=== PATIENT | male | born 1940 | race Caucasian/White ===

== ENCOUNTER → 2018-02-01 08:33 | Outpatient (CLI) | payer MEDICARE, SELFPAY ==
[2018-02-01 09:36] LABS: Add Manual Diff / Slide Review NO; Basophils Percent Auto 0.8 % (0-2); Eosinophils Percent Auto 0.6 % (2-4); Hemoglobin 11.4 g/dL (13.5-17.5); Lymphocytes Percent Auto 30.1 % (25-40); Mean Corpuscular HGB Conc 34.7 % (30-36); Mean Corpuscular Hemoglobin 35.3 PG (26-34); Mean Corpuscular Volume 101.6 fL (80-100); Monocytes Percent Auto 9.9 % (3-14); Neutrophils Absolute Auto 3800 /uL (3000-5900); Neutrophils Percent Auto 58.6 % (50-75); Platelet Count 165 X10^3/uL (150-400); Red Blood Cell Count 3.24 X10^6/uL (4.5-5.9); Red Cell Distribution Width 13.6 % (11.6-14.8); White Blood Cell Count 6.5 X10^3/uL (4.5-11.0)
[2018-02-01 09:42] LABS: Hemoglobin A1C% w Est Avg Glu 7.1 % (4.0-6.0)
[2018-02-01 10:07] LABS: Alanine Aminotransferase 35 IU/L (21-72); Albumin 3.6 g/dL (3.5-5.0); Albumin Globulin Ratio 1.4 (1.0-2.8); Alkaline Phosphatase 79 U/L (38-126); Aspartate Aminotransferase 33 IU/L (17-59); BUN Creatinine Ratio 25.3 (6-22); Bilirubin Total 0.6 mg/dL (0.2-1.3); Blood Urea Nitrogen 38 mg/dL (9-20); Calcium 9.2 mg/dL (8.4-10.2); Carbon Dioxide 27 mmol/L (22-32); Chloride 104 mmol/L (98-107); Estimated Glomerular Filt Rate 45.1 mL/min (>60); Globulin 2.6 g/dL (1.7-4.1); Glucose 103 mg/dL (80-110); HEMOLYSIS < 15 (0-50); Potassium 4.7 mmol/L (3.4-5.1); Sodium 141 mmol/L (137-145); Total Protein 6.2 g/dL (6.3-8.2)
[2018-02-01 10:11] LABS: Free T3, Triiodothyronine Free 3.03 pg/mL (2.77-5.27)
[2018-02-01 10:25] LABS: Thyroid Stimulating Hormone 1.73 uIU/mL (0.47-4.68)
== END ==
PROVIDERS: PCP Internal Medicine; Visit Provider Internal Medicine
DX: E11.9 Type 2 diabetes mellitus without complications (principal); I10 Essential (primary) hypertension; E03.9 Hypothyroidism, unspecified; Z94.2 Lung transplant status
CPT/HCPCS: 36415; 80053; 83036; 84439; 84443; 84481; 85025

== ENCOUNTER → 2018-02-19 08:04 | Outpatient (CLI) | payer MEDICARE, SELFPAY ==
[2018-02-19 10:02] LABS: HEMOLYSIS < 15 (0-50); Iron 110 ug/dL (49-181)
[2018-02-19 10:13] LABS: Percent Iron Saturation 34 % (20-50); Total Iron Binding Capacity 319 ug/dL (261-462); Transferrin 249 mg/dL (206-381)
== END ==
PROVIDERS: PCP Internal Medicine; Visit Provider Internal Medicine
DX: D64.9 Anemia, unspecified (principal)
CPT/HCPCS: 36415; 82728; 83540; 83550

== ENCOUNTER → 2018-03-14 09:50 | Outpatient (CLI) | payer MEDICARE, SELFPAY | PROVIDERS: PCP Internal Medicine; Visit Provider Surgery | DX: D64.9 Anemia, unspecified (principal); D12.9 Benign neoplasm of anus and anal canal | CPT/HCPCS: 93005 ==

== ENCOUNTER → 2018-04-10 09:33 | Outpatient (CLI) | payer MEDICARE, SELFPAY ==
[2018-04-10 11:11] LABS: Albumin 3.5 g/dL (3.5-5.0)
[2018-04-10 11:43] LABS: Testosterone 57.5 ng/dL (71.8-623)
[2018-04-10 12:13] LABS: Folate > 20.0 ng/mL (2.76-20.0); Vitamin B12 922 pg/mL (239-931)
[2018-04-12 14:15] LABS: Sex Hormone Binding Globulin 54 nmol/L (22-77)
[2018-04-13 11:09] LABS: Testosterone Free 7.4 pg/mL (30.0-135.0); Testosterone Total 94 ng/dL (250-1100)
== END ==
PROVIDERS: PCP Internal Medicine; Visit Provider Acupuncturist
DX: R53.83 Other fatigue (principal); D64.9 Anemia, unspecified; R35.0 Frequency of micturition
CPT/HCPCS: 36415; 82040; 82607; 82728; 82746; 84153; 84270; 84402; 84403

== ENCOUNTER → 2018-05-21 13:02 | Outpatient (CLI) | payer MEDICARE, SELFPAY ==
[2018-05-21 13:49] LABS: Hemoglobin A1C% w Est Avg Glu 6.4 % (4.0-6.0)
[2018-05-21 14:30] LABS: Blood Urea Nitrogen 44 mg/dL (9-20); Calcium 9.7 mg/dL (8.4-10.2); Carbon Dioxide 31 mmol/L (22-32); Chloride 103 mmol/L (98-107); Estimated Glomerular Filt Rate 30.6 mL/min (>60); Glucose 150 mg/dL (80-110); HEMOLYSIS < 15 (0-50); Potassium 5.1 mmol/L (3.4-5.1); Sodium 141 mmol/L (137-145)
[2018-05-23 17:47] LABS: Testosterone, Free 0.19 ng/dL
== END ==
PROVIDERS: PCP Internal Medicine; Visit Provider Acupuncturist
DX: E10.9 Type 1 diabetes mellitus without complications (principal)
CPT/HCPCS: 36415; 80048; 83036; 84402; 84403

== ENCOUNTER → 2018-06-10 08:42 | Outpatient (CLI) | payer MEDICARE, SELFPAY ==
[2018-06-10 09:31] LABS: BUN Creatinine Ratio 25.6 (6-22); Blood Urea Nitrogen 41 mg/dL (9-20); Calcium 8.5 mg/dL (8.4-10.2); Carbon Dioxide 29 mmol/L (22-32); Chloride 105 mmol/L (98-107); Estimated Glomerular Filt Rate 41.9 mL/min (>60); Glucose 102 mg/dL (80-110); HEMOLYSIS < 15 (0-50); Potassium 4.7 mmol/L (3.4-5.1); Sodium 140 mmol/L (137-145)
[2018-06-10 10:04] LABS: Thyroid Stimulating Hormone 0.58 uIU/mL (0.47-4.68)
== END ==
PROVIDERS: Family Provider Internal Medicine; PCP Internal Medicine; Visit Provider Acupuncturist
DX: N18.9 Chronic kidney disease, unspecified (principal); I10 Essential (primary) hypertension
CPT/HCPCS: 36415; 80048; 84443

== ENCOUNTER → 2019-01-17 07:37 | Outpatient (CLI) | payer MEDICARE, SELFPAY ==
[2019-01-17 08:23] LABS: Add Manual Diff / Slide Review NO; Basophils Absolute Auto 0 /uL (0-100); Basophils Percent Auto 0.8 % (0-2); Eosinophils Absolute Auto 0 /uL (0-450); Eosinophils Percent Auto 0.6 % (2-4); Hematocrit 32.5 % (41-53); Hemoglobin 11.1 g/dL (13.5-17.5); Lymphocytes Absolute Auto 1900 /uL (1100-4500); Lymphocytes Percent Auto 32.5 % (25-40); Mean Corpuscular HGB Conc 34.1 % (30-36); Mean Corpuscular Hemoglobin 34.7 PG (26-34); Mean Corpuscular Volume 101.8 fL (80-100); Monocytes Absolute Auto 600 /uL (0-900); Monocytes Percent Auto 10.6 % (3-14); Neutrophils Absolute Auto 3200 /uL (1500-7000); Neutrophils Percent Auto 55.5 % (50-75); Platelet Count 172 X10^3/uL (150-400); Red Cell Distribution Width 13.4 % (11.6-14.8); White Blood Cell Count 5.8 X10^3/uL (4.5-11.0)
[2019-01-17 09:35] LABS: Alanine Aminotransferase 28 IU/L (21-72); Albumin 3.4 g/dL (3.5-5.0); Albumin Globulin Ratio 1.4 (1.0-2.8); Alkaline Phosphatase 90 U/L (38-126); Aspartate Aminotransferase 30 IU/L (17-59); BUN Creatinine Ratio 25.6 (6-22); Bilirubin Total 0.5 mg/dL (0.2-1.3); Blood Urea Nitrogen 41 mg/dL (9-20); Carbon Dioxide 27 mmol/L (22-32); Chloride 104 mmol/L (98-107); Estimated Glomerular Filt Rate 41.8 mL/min (>60); Globulin 2.4 g/dL (1.7-4.1); Glucose 116 mg/dL (80-110); HEMOLYSIS < 15 (0-50); Phosphorous 3.3 mg/dL (2.3-3.7); Potassium 4.6 mmol/L (3.4-5.1); Sodium 138 mmol/L (137-145); Total Protein 5.8 g/dL (6.3-8.2)
[2019-01-20 17:24] LABS: Tacrolimus 5.9 mcg/L (5.0-20.0)
== END ==
PROVIDERS: PCP Internal Medicine; Visit Provider Internal Medicine Critical Care Medicine
DX: Z94.2 Lung transplant status (principal)
CPT/HCPCS: 36415; 80053; 80197; 83735; 84100; 85025; 87497

== ENCOUNTER → 2019-02-05 09:18 | Outpatient (CLI) | payer MEDICARE, SELFPAY ==
[2019-02-05 10:28] LABS: Add Manual Diff / Slide Review NO; Basophils Absolute Auto 100 /uL (0-100); Basophils Percent Auto 0.8 % (0-2); Eosinophils Absolute Auto 0 /uL (0-450); Eosinophils Percent Auto 0.5 % (2-4); Hematocrit 34.9 % (41-53); Hemoglobin 11.8 g/dL (13.5-17.5); Lymphocytes Absolute Auto 1900 /uL (1100-4500); Lymphocytes Percent Auto 29.8 % (25-40); Mean Corpuscular HGB Conc 33.9 % (30-36); Mean Corpuscular Hemoglobin 34.7 PG (26-34); Mean Corpuscular Volume 102.3 fL (80-100); Monocytes Absolute Auto 600 /uL (0-900); Monocytes Percent Auto 9.3 % (3-14); Neutrophils Absolute Auto 3700 /uL (1500-7000); Neutrophils Percent Auto 59.6 % (50-75); Platelet Count 181 X10^3/uL (150-400); Red Blood Cell Count 3.41 X10^6/uL (4.5-5.9); Red Cell Distribution Width 13.3 % (11.6-14.8); White Blood Cell Count 6.2 X10^3/uL (4.5-11.0)
[2019-02-05 10:45] LABS: Alanine Aminotransferase 28 IU/L (21-72); Albumin 3.9 g/dL (3.5-5.0); Albumin Globulin Ratio 1.4 (1.0-2.8); Alkaline Phosphatase 81 U/L (38-126); Aspartate Aminotransferase 32 IU/L (17-59); BUN Creatinine Ratio 23.9 (6-22); Bilirubin Total 0.6 mg/dL (0.2-1.3); Blood Urea Nitrogen 43 mg/dL (9-20); Calcium 9.7 mg/dL (8.4-10.2); Carbon Dioxide 28 mmol/L (22-32); Chloride 103 mmol/L (98-107); Estimated Glomerular Filt Rate 36.5 mL/min (>60); Globulin 2.7 g/dL (1.7-4.1); Glucose 116 mg/dL (80-110); HEMOLYSIS < 15 (0-50); Phosphorous 4.1 mg/dL (2.3-3.7); Potassium 4.4 mmol/L (3.4-5.1); Sodium 138 mmol/L (137-145); Total Protein 6.6 g/dL (6.3-8.2)
[2019-02-05 10:49] LABS: High Sensitivity CRP - Cardiac 3.9 mg/L (1.0-3.0)
[2019-02-05 11:00] LABS: Vitamin D 25 Hydroxy (D3) 76.7 ng/mL (30.0-100.0)
[2019-02-05 11:01] LABS: Free T3, Triiodothyronine Free 2.35 pg/mL (2.77-5.27); Free T4, Direct Thyroxine 1.68 ng/dL (0.78-2.19)
[2019-02-05 11:14] LABS: Thyroid Stimulating Hormone 2.54 uIU/mL (0.47-4.68)
[2019-02-05 11:49] LABS: Folate 13.6 ng/mL (2.76-20.0); Vitamin B12 559 pg/mL (239-931)
[2019-02-07 04:07] LABS: CMV DNA, Quant PCR LOG 10 <2.30 Log IU/mL; CMV DNA, Quant Real Time PCR <200 IU/mL; Source Blood
[2019-02-07 09:02] LABS: Tacrolimus 3.9 mcg/L (5.0-20.0)
== END ==
PROVIDERS: Family Provider Internal Medicine Critical Care Medicine; PCP Internal Medicine; Visit Provider Acupuncturist
DX: D64.9 Anemia, unspecified (principal); R73.01 Impaired fasting glucose; Z94.2 Lung transplant status
CPT/HCPCS: 36415; 80053; 80197; 82306; 82607; 82746; 83735; 84100; 84439; 84443; 84481; 85025; 86140; 87497

== ENCOUNTER → 2019-02-07 11:28 | Outpatient (CLI) | payer MEDICARE, SELFPAY ==
[2019-02-07 15:11] LABS: Collection Time Urine 24 Hours; Protein (Total) Urine Random 10 mg/dL (0-12); Total Protein 24 Hour Urine 150 mg/day (42-225); Total Volume Urine 1500 mL
== END ==
PROVIDERS: PCP Internal Medicine; Visit Provider Acupuncturist
DX: Z94.2 Lung transplant status (principal)
CPT/HCPCS: 84156

== ENCOUNTER → 2019-03-10 10:09 | Outpatient (CLI) | payer MEDICARE, SELFPAY ==
[2019-03-10 11:03] LABS: Add Manual Diff / Slide Review NO; Basophils Absolute Auto 0 /uL (0-100); Basophils Percent Auto 0.7 % (0-2); Eosinophils Absolute Auto 0 /uL (0-450); Eosinophils Percent Auto 0.5 % (2-4); Hematocrit 34.7 % (41-53); Hemoglobin 11.7 g/dL (13.5-17.5); Lymphocytes Absolute Auto 2000 /uL (1100-4500); Lymphocytes Percent Auto 30.4 % (25-40); Mean Corpuscular HGB Conc 33.7 % (30-36); Mean Corpuscular Hemoglobin 33.9 PG (26-34); Mean Corpuscular Volume 100.6 fL (80-100); Monocytes Absolute Auto 600 /uL (0-900); Monocytes Percent Auto 9.6 % (3-14); Neutrophils Absolute Auto 3800 /uL (1500-7000); Neutrophils Percent Auto 58.8 % (50-75); Platelet Count 184 X10^3/uL (150-400); Red Blood Cell Count 3.45 X10^6/uL (4.5-5.9); Red Cell Distribution Width 13.4 % (11.6-14.8); White Blood Cell Count 6.5 X10^3/uL (4.5-11.0)
[2019-03-10 11:29] LABS: Alanine Aminotransferase 26 IU/L (21-72); Albumin 3.6 g/dL (3.5-5.0); Albumin Globulin Ratio 1.4 (1.0-2.8); Alkaline Phosphatase 100 U/L (38-126); Aspartate Aminotransferase 27 IU/L (17-59); Bilirubin Total 0.5 mg/dL (0.2-1.3); Blood Urea Nitrogen 35 mg/dL (9-20); Calcium 9.1 mg/dL (8.4-10.2); Carbon Dioxide 29 mmol/L (22-32); Chloride 105 mmol/L (98-107); Estimated Glomerular Filt Rate 48.8 mL/min (>60); Globulin 2.5 g/dL (1.7-4.1); Glucose 126 mg/dL (80-110); HEMOLYSIS < 15 (0-50); Magnesium 1.9 mg/dL (1.6-2.3); Phosphorous 3.4 mg/dL (2.3-3.7); Potassium 4.4 mmol/L (3.4-5.1); Sodium 141 mmol/L (137-145); Total Protein 6.1 g/dL (6.3-8.2)
[2019-03-14 04:26] LABS: CMV DNA, Quant PCR LOG 10 <2.30 Log IU/mL; CMV DNA, Quant Real Time PCR <200 IU/mL; Source Blood
== END ==
PROVIDERS: Family Provider Internal Medicine; PCP Internal Medicine; Visit Provider Internal Medicine Critical Care Medicine
DX: Z94.2 Lung transplant status (principal)
CPT/HCPCS: 36415; 80053; 80197; 83735; 84100; 85025; 87497

== ENCOUNTER 2019-05-07 07:30 | Outpatient (RCR) | payer MEDICARE, SELFPAY ==
--- NOTE | 2019-01-08 17:31 | PT.OIE ---
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) Past Medical History (Last Reviewed 03/14/18 @ 09:16 by Master Cr MD) Anemia (Chronic) Tubular adenoma of colon (Chronic) Past Surgical History (Last Updated 03/14/18 @ 09:20 by Marisabel Cloud LPN) H/O lung transplant (Resolved) Provider Visit Care Team Role Provider Type Froilan Morgan MD Family Provider Physician Primary Care Provider Specialty: Internal Medicine Address: [address] [place] [address] Email: Attending Provider Specialty: Address: Phone: Fax: Email: Physical Therapy Initial Evaluation PT-OP-A Visit Information Start: 01/08/19 17:01 Freq: Status: Active Protocol: Document 01/08/19 15:15 DCW (Rec: 01/08/19 17:30 DCW [id number]) Out-Patient Physical Therapy Visit Information Visit Information Visit Type Initial Evaluation Visit Start Time 15:15 Visit Stop Time 16:00 Total Visit Minutes 45 Visit Number 1 Number of CONTRACT RUNNER Visits 0 Evaluation Information Evaluation Date 01/08/19 PT-OP-B Current Condition Start: 01/08/19 17:01 Freq: Status: Active Protocol: Document 01/08/19 15:15 DCW (Rec: 01/08/19 17:30 DCW [id number]) Current Condition History of Current Condition Onset Date 8.5 years s/p lung transplant Current Complaints generalized weakness, fatigue, falls History of Current Condition Pt is an 78 year old male with a complicated medical history , most notably he is eight years s/p lung transplant. Pt reports that ever since his transplant, he has been taking anti-rejection drugs, and I think they're finally starting to take a toll. Pt reports that over the last two years, he has felt like he is getting weaker and weaker, and my knees are killing me with anything I do. Pt also notes that both his right hip and right shoulder are causing pain most of the time, and he feels weak from the top of my head down to my toes. Pt reports that prior to his transplant, he was told he would need knee replacements, but is now too afraid to have surgery, due to infection and respiratory risk. Pt notes that earlier today, he was unable to lift a 30 pound box at the grocery store, and when he starts walking, my knee hurts by the second step. Prior Treatments and Tests Hx Lung replacement secondary to interstitial lung disease Treatment Goals Patient/Caregiver Goals I would just like to get my arms and legs a little stronger, to make it easier to get around. Prior Functional Status Baseline Function- ADL's Independent Baseline Function- Mobility Independent Current Functional Impairments (Reported) Functional Limitations- ADL's Pt unable to lift a 30# box at the grocery store. Functional Limitations- Mobility/Gait Pt ambulates with a slow gait, small step length. Pt knee pain increases after second step when he begins to walk. Personal Factors Other Personal Factors That May Effect Hx Lung replacement secondary Therapy/Recovery to interstitial lung disease, HTN, DM II, Hx C-diff, GERD, Hx pneumonia, Hx skin cancer PT-OP-C Subjective Start: 01/08/19 17:01 Freq: Status: Active Protocol: Document 01/08/19 15:15 DCW (Rec: 01/08/19 17:30 [facility] [id number]) OP-PT Subjective Patient Comments Patient Comments I've just been getting worse and worse over the last two years. Both my arms and legs are so weak now. Patient Reported Progress Worse PT-OP-D Balance Start: 01/08/19 17:01 Freq: Status: Active Protocol: Document 01/08/19 15:15 DCW (Rec: 01/08/19 17:30 DCW [id number]) OP-PT Balance Assessment Sitting Balance Static Sitting Balance Ability Normal Dynamic Sitting Balance Ability Normal Standing Balance Static Standing Balance Ability Good Dynamic Standing Balance Ability Fair Balance Tests Salazar Balance Test Salazar Balance Test Score 49/56 Salazar Impairment Rating 1 to 19% Impaired (Score 45-55 ) Single Limb Standing Single Limb- Right 8 seconds Single Limb- Left 6 seconds Salazar Balance Assessment Evaluation Sitting to Standing Ability Independent w/out Hands Unsupported Stance Safely- 2 minutes Sitting Unsupported, Feet on Floor Safely- 2 minutes Standing to Sitting Ability Independent, Uncontrolled Transfer Ability Safely, Hand Use Unsupported Stance- Eyes Closed Safely, 10 seconds Unsupported Stance- Eyes Open Independent, 1 minute Reaching Forward Standing Confidently, 10 inches Pick- Up Object From Floor Independent/Safe Look Behind Shoulder - Standing Shifts Weight Well Turning 360 Degrees Turns , < 4 secs Unsupported Stance, Alternating Feet on (I)- 8 Steps in > 20 secs Stair Unsupported Tandem Stance Achieves Tandem Unilateral Leg Stance Lifts Leg/Holds 5-10 secs Total Score Salazar Total Score (out of 56 points) 49 Sampson Fall Scale Copyright Permission Adrián JM, Adrián RM, Faustino SJ. Development of a scale to identify the fall- prone patient. Can J Aging 1989;8;366-7. Saskia Sampson (2009). Preventing patient falls. (2nd ed). [place]: [place]. PT-OP-E Functional Tests Start: 01/08/19 17:01 Freq: Status: Active Protocol: Document 01/08/19 15:15 DCW (Rec: 01/08/19 17:30 DCW [id number]) Functional Tests Dynamic Gait Index (DGI) Score 15/24 DGI Impairment Rating 20 to <40% Impaired (Score 15- 19) PT-OP-G Mobility & Gait Start: 01/08/19 17:01 Freq: Status: Active Protocol: Document 01/08/19 15:15 DCW (Rec: 01/08/19 17:30 DCW [id number]) OP Mobility Evaluation Transfers Sit to Stand Stand->Sit transfers, pt demonstrates rapid, uncontrolled descent into chair Functional Movements Lifting and Carrying Pt unable to lift 30# box OP Gait Assessment Gait Gait Assistance Required: Independent Distance (Feet) 200 Assistive Devices Assistive Device None Gait Deviations General Gait Pattern Decreased Stride Length Factors Limiting Gait Function Factors Limiting Gait Function Decreased Strength Poor Balance Comments Gait Comments Pt ambulates with a slow pallavi, minimal ability to change speed with instruction. Stair Climbing Evaluation Evaluation Level of Assist On Stairs Independent Devices Stair Climbing Assistive Devices Left Railing Right Railing Technique/Endurance Stair Climbing Direction Ascend and Descend Stair Climbing Technique Step to Step Number of Steps Climbed 3 PT-OP-M Strength Start: 01/08/19 17:01 Freq: Status: Active Protocol: Document 01/08/19 15:15 DCW (Rec: 01/08/19 17:30 DCW [id number]) Shoulder Strength Shoulder Manual Muscle Testing Right Flexion 4- Good- Extension 4+ Good+ Abduction (C5) 4- Good- External Rotation 4- Good- Internal Rotation 4+ Good+ Left Flexion 4 Good Extension 4+ Good+ Abduction (C5) 4 Good External Rotation 4 Good Internal Rotation 4+ Good+ Elbow/Forearm Strength Elbow and Forearm Manual Muscle Testing Right Flexion (C6) 4 Good Extension (C7) 4- Good- Left Flexion (C6) 4 Good Extension (C7) 4- Good- Hip Strength Hip Manual Muscle Testing Right Flexion (L2) 3 Fair Abduction 4 Good Adduction 4- Good- External Rotation 4- Good- Internal Rotation 4- Good- Left Flexion (L2) 3+ Fair+ Abduction 4 Good Adduction 4- Good- External Rotation 4- Good- Internal Rotation 4 Good Knee Strength Knee Manual Muscle Testing Right Flexion (S2) 4- Good- Extension (L3) 4- Good- Left Flexion (S2) 4+ Good+ Extension (L3) 4- Good- PT-OP-T Assessment and Plan Start: 01/08/19 17:01 Freq: Status: Active Protocol: Document 01/08/19 15:15 DCW (Rec: 01/08/19 17:30 DCW [id number]) Physical Therapy Assessment Rehab Potential Rehabilitation Potential Good Evaluation Complexity Number of Personal Factors/Comorbidities 3 or More Number of Body Systems Impaired 4 or More Clinical Presentation at Evaluation Evolving Impairments Impairments Activity Tolerance Balance Functional Activities Functional Mobility Gait ROM Strength Transfers Other Concerns Fall Risk Yes, per DGI: Barriers to Rehabilitation Complicated medical history Goals Four Impairment Global weakness [place] Goal (LTG) UE and LE MMT to grossly 4+/5 LTG Duration 03/10/19 Three Impairment Pt reports increased knee pain when walking Short Term Goal (STG) Pt to tolerate walking for 6 minutes with no reports of increased knee pain STG Duration 02/08/19 Two Impairment Pt at an increased falls risk per 1524 DGI Short Term Goal (STG) Pt to report no falls over a one month period STG Duration 02/08/19 [place] Goal (LTG) Pt to score at least 20/24 on DGI LTG Duration 03/10/19 One Impairment Pt does not have an appropriate home exercise program Short Term Goal (STG) Pt to be independent and compliant with an appropriate HEP STG Duration 02/08/19 Assessment Summary Assessment Pt presents with global upper and lower extremity weakness, increased falls risk during dynamic balance (per DGI score), pain with walking, and decreased activity tolerance. Pt feels his symptoms are related to his anti-rejection medications he has been taking for 8.5 years following his lung transplant . Pt's goal is to improve his arm and leg strength to improve his walking tolerance and stability. Pt should benefit from skilled therapy focusing on balance training, strengthening, transfer training (especially stand-> sit transfers), and improving activity tolerance. Physical Therapy Plan Frequency and Duration Frequency of Treatment 2x/Week Duration of Treatment 3 months Plan of Care Start Date 01/08/19 Plan of Care End Date 04/10/19 Therapeutic Interventions Therapeutic Interventions Aquatic Therapy Balance Training Gait Training Home Exercise Program Manual Therapy Neuromuscular Re-education Patient/Caregiver Education Self-Care/Home Management Soft Tissue Mobilization Therapeutic Activities Therapeutic Exercises Modalities Cold Pack/Ice Massage Electric Stimulation Hot Packs Ultrasound Next Visit Focus/Plan Next Note Type Treatment Note Next Visit Plan Strengthening, dynamic balance training
--- NOTE | 2019-01-08 17:31 | PT.OPPOC ---
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) Provider Visit Care Team Role Provider Type Froilan Morgan MD Family Provider Physician Primary Care Provider Specialty: Internal Medicine Address: [address] [place] [address], [id number] Email: Attending Provider Specialty: Address: Phone: Fax: Email: Plan Of Care PT-OP-T Assessment and Plan Start: 01/08/19 17:01 Freq: Status: Active Protocol: Document 01/08/19 15:15 DCW (Rec: 01/08/19 17:30 DCW [id number]) Physical Therapy Assessment Rehab Potential Rehabilitation Potential Good Evaluation Complexity Number of Personal Factors/Comorbidities 3 or More Number of Body Systems Impaired 4 or More Clinical Presentation at Evaluation Evolving Impairments Impairments Activity Tolerance Balance Functional Activities Functional Mobility Gait ROM Strength Transfers Other Concerns Fall Risk Yes, per DGI: Barriers to Rehabilitation Complicated medical history Goals Four Impairment Global weakness Detention Goal (LTG) UE and LE MMT to grossly 4+/5 LTG Duration 03/10/19 Three Impairment Pt reports increased knee pain when walking Short Term Goal (STG) Pt to tolerate walking for 6 minutes with no reports of increased knee pain STG Duration 02/08/19 Two Impairment Pt at an increased falls risk per 15/24 DGI Short Term Goal (STG) Pt to report no falls over a one month period STG Duration 02/08/19 Detention Goal (LTG) Pt to score at least 20/24 on DGI LTG Duration 03/10/19 One Impairment Pt does not have an appropriate home exercise program Short Term Goal (STG) Pt to be independent and compliant with an appropriate HEP STG Duration 02/08/19 Assessment Summary Assessment Pt presents with global upper and lower extremity weakness, increased falls risk during dynamic balance (per 24 DGI score), pain with walking, and decreased activity tolerance. Pt feels his symptoms are related to his anti-rejection medications he has been taking for 8.5 years following his lung transplant . Pt's goal is to improve his arm and leg strength to improve his walking tolerance and stability. Pt should benefit from skilled therapy focusing on balance training, strengthening, transfer training (especially stand-> sit transfers), and improving activity tolerance. Physical Therapy Plan Frequency and Duration Frequency of Treatment 2x/Week Duration of Treatment 3 months Plan of Care Start Date 01/08/19 Plan of Care End Date 04/10/19 Therapeutic Interventions Therapeutic Interventions Aquatic Therapy Balance Training Gait Training Home Exercise Program Manual Therapy Neuromuscular Re-education Patient/Caregiver Education Self-Care/Home Management Soft Tissue Mobilization Therapeutic Activities Therapeutic Exercises Modalities Cold Pack/Ice Massage Electric Stimulation Hot Packs Ultrasound Next Visit Focus/Plan Next Note Type Treatment Note Next Visit Plan Strengthening, dynamic balance training Plan of Care Dates Plan of Care Start Date 01/08/19 Plan of Care End Date 04/10/19 Please Sign and Return: I have reviewed this Plan of Care and certify that the skilled therapy services above are required to meet the patient?s needs. Physician Signature Date Printed Name and Credentials Clinical Instructor Signature Printed Name and Credentials
--- NOTE | 2019-01-10 11:58 | PT.OTN ---
Current Diagnoses Muscle weakness (generalized) (01/10/19) Lung transplant status (01/10/19) Physical Therapy Treatment Note PT-OP-A Visit Information Start: 01/08/19 17:01 Freq: Status: Active Protocol: Document 01/10/19 11:15 DCW (Rec: 01/10/19 11:57 DCW [id number]) Out-Patient Physical Therapy Visit Information Visit Information Visit Type Treatment Note Visit Start Time 11:15 Visit Stop Time 12:00 Total Visit Minutes 45 Visit Number 2 Number of TRANSPORTATION DRIVER Visits 0 Evaluation Information Evaluation Date 01/08/19 PT-OP-B Current Condition Start: 01/08/19 17:01 Freq: Status: Active Protocol: Document 01/08/19 15:15 DCW (Rec: 01/08/19 17:30 DCW [id number]) Current Condition History of Current Condition Onset Date 8.5 years s/p lung transplant Current Complaints generalized weakness, fatigue, falls History of Current Condition Pt is an 78 year old male with a complicated medical history , most notably he is eight years s/p lung transplant. Pt reports that ever since his transplant, he has been taking anti-rejection drugs, and I hink they're finally starting to take a toll. Pt reports that over the last two years, he has felt like he is getting weaker and weaker, and my knees are killing me with anything I do. Pt also notes that both his right hip and right shoulder are causing pain most of the time, and he feels weak from the top of my head down to my toes. Pt reports that prior to his transplant, he was told he would need knee replacements, but is now too afraid to have surgery, due to infection and respiratory risk. Pt notes that earlier today, he was unable to lift a 30 pound box at the grocery store, and when he starts walking, my knee hurts by the second step. Prior Treatments and Tests Hx Lung replacement secondary to interstitial lung disease Treatment Goals Patient/Caregiver Goals I would just like to get my arms and legs a little stronger, to make it easier to get around. Prior Functional Status Baseline Function- ADL's Independent Baseline Function- Mobility Independent Current Functional Impairments (Reported) Functional Limitations- ADL's Pt unable to lift a 30# box at the grocery store. Functional Limitations- Mobility/Gait Pt ambulates with a slow gait, small step length. Pt knee pain increases after second step when he begins to walk. Personal Factors Other Personal Factors That May Effect Hx Lung replacement secondary Therapy/Recovery to interstitial lung disease, HTN, DM II, Hx C-diff, GERD, Hx pneumonia, Hx skin cancer PT-OP-C Subjective Start: 01/08/19 17:01 Freq: Status: Active Protocol: Document 01/10/19 11:15 DCW (Rec: 01/10/19 11:57 DCW [id number]) OP-PT Subjective Patient Comments Patient Comments Pt reports he is very tired today after spending all day yesterday out doing yard work. I probably should have stuck to only 1/4 day of work. PT-OP-D Balance Start: 01/08/19 17:01 Freq: Status: Active Protocol: Document 01/08/19 15:15 DCW (Rec: 01/08/19 17:30 DCW [id number]) OP-PT Balance Assessment Sitting Balance Static Sitting Balance Ability Normal Dynamic Sitting Balance Ability Normal Standing Balance Static Standing Balance Ability Good Dynamic Standing Balance Ability Fair Balance Tests Salazar Balance Test Salazar Balance Test Score 49/56 Salazar Impairment Rating 1 to 19% Impaired (Score 45-55 ) Single Limb Standing Single Limb- Right 8 seconds Single Limb- Left 6 seconds Salazar Balance Assessment Evaluation Sitting to Standing Ability Independent w/out Hands Unsupported Stance Safely- 2 minutes Sitting Unsupported, Feet on Floor Safely- 2 minutes Standing to Sitting Ability Independent, Uncontrolled Transfer Ability Safely, Hand Use Unsupported Stance- Eyes Closed Safely, 10 seconds Unsupported Stance- Eyes Open Independent, 1 minute Reaching Forward Standing Confidently, 10 inches Pick- Up Object From Floor Independent/Safe Look Behind Shoulder - Standing Shifts Weight Well Turning 360 Degrees Turns , < 4 secs Unsupported Stance, Alternating Feet on (I)- 8 Steps in > 20 secs Stair Unsupported Tandem Stance Achieves Tandem Unilateral Leg Stance Lifts Leg/Holds 5-10 secs Total Score Salazar Total Score (out of 56 points) 49 Sampson Fall Scale Copyright Permission Adrián MENDOZA, Adrián RM, Faustino SJ. Development of a scale to identify the fall- prone patient. Can J Aging 1989;8;366-7. Saskia Sampson (2009). Preventing patient falls. (2nd ed). [place]: [place]. PT-OP-E Functional Tests Start: 01/08/19 17:01 Freq: Status: Active Protocol: Document 01/08/19 15:15 DCW (Rec: 01/08/19 17:30 DCW [id number]) Functional Tests Dynamic Gait Index (DGI) Score 1524 DGI Impairment Rating 20 to <40% Impaired (Score 15- 19) PT-OP-G Mobility & Gait Start: 01/08/19 17:01 Freq: Status: Active Protocol: Document 01/08/19 15:15 DCW (Rec: 01/08/19 17:30 DCW [id number]) OP Mobility Evaluation Transfers Sit to Stand Stand->Sit transfers, pt demonstrates rapid, uncontrolled descent into chair Functional Movements Lifting and Carrying Pt unable to lift 30# box OP Gait Assessment Gait Gait Assistance Required: Independent Distance (Feet) 200 Assistive Devices Assistive Device None Gait Deviations General Gait Pattern Decreased Stride Length Factors Limiting Gait Function Factors Limiting Gait Function Decreased Strength Poor Balance Comments Gait Comments Pt ambulates with a slow pallavi, minimal ability to change speed with instruction. Stair Climbing Evaluation Evaluation Level of Assist On Stairs Independent Devices Stair Climbing Assistive Devices Left Railing Right Railing Technique/Endurance Stair Climbing Direction Ascend and Descend Stair Climbing Technique Step to Step Number of Steps Climbed 3 PT-OP-M Strength Start: 01/08/19 17:01 Freq: Status: Active Protocol: Document 01/08/19 15:15 DCW (Rec: 01/08/19 17:30 DCW [id number]) Shoulder Strength Shoulder Manual Muscle Testing Right Flexion 4- Good- Extension 4+ Good+ Abduction (C5) 4- Good- External Rotation 4- Good- Internal Rotation 4+ Good+ Left Flexion 4 Good Extension 4+ Good+ Abduction (C5) 4 Good External Rotation 4 Good Internal Rotation 4+ Good+ Elbow/Forearm Strength Elbow and Forearm Manual Muscle Testing Right Flexion (C6) 4 Good Extension (C7) 4- Good- Left Flexion (C6) 4 Good Extension (C7) 4- Good- Hip Strength Hip Manual Muscle Testing Right Flexion (L2) 3 Fair Abduction 4 Good Adduction 4- Good- External Rotation 4- Good- Internal Rotation 4- Good- Left Flexion (L2) 3+ Fair+ Abduction 4 Good Adduction 4- Good- External Rotation 4- Good- Internal Rotation 4 Good Knee Strength Knee Manual Muscle Testing Right Flexion (S2) 4- Good- Extension (L3) 4- Good- Left Flexion (S2) 4+ Good+ Extension (L3) 4- Good- PT-OP-Q Treatments Start: 01/08/19 17:01 Freq: Status: Active Protocol: Document 01/10/19 11:15 DCW (Rec: 01/10/19 11:57 DCW [id number]) Cardio Equipment Recumbent Stepper (Sci-Fit) Duration (Minutes) 5 Resistance 3 Seat Position 12 Gym Equipment Shuttle Recovery Unilateral Squats Resistance 37# Shuttle Recovery Platform Stable Bilateral Squats Resistance 75# Shuttle Recovery Platform Stable Shuttle Balance Red Details WBOS, Staggered Stance, Lateral Weight Shift Comments WBOS (EO/EC, Horiz Head Turns) Therapeutic Exercises Standing Exercises Shoulder Flexion Standing Exercise Name Flexion Side bilateral Resistance Lv 2 Equipment Used T-band Reps/Minutes x15 Shoulder Abduction Standing Exercise Name Abduction Side bilateral Resistance Lv 2 Equipment Used T-band Reps/Minutes x15 Other Exercises Resisted Ambulation Other Exercise Name Fwd, Bkwd, and Side-stepping Resistance Yellow Equipment Used T-band PT-OP-T Assessment and Plan Start: 01/08/19 17:01 Freq: Status: Active Protocol: Document 01/10/19 11:15 DCW (Rec: 01/10/19 11:57 DCW [id number]) Physical Therapy Assessment Impairments Impairments Activity Tolerance Balance Functional Activities Functional Mobility Gait ROM Strength Transfers Goals Four Impairment Global weakness Penitentiary Goal (LTG) UE and LE MMT to grossly 4+/5 LTG Duration 03/10/19 Three Impairment Pt reports increased knee pain when walking Short Term Goal (STG) Pt to tolerate walking for 6 minutes with no reports of increased knee pain STG Duration 02/08/19 Two Impairment Pt at an increased falls risk per 15/24 DGI Short Term Goal (STG) Pt to report no falls over a one month period STG Duration 02/08/19 Penitentiary Goal (LTG) Pt to score at least 20/24 on DGI LTG Duration 03/10/19 One Impairment Pt does not have an appropriate home exercise program Short Term Goal (STG) Pt to be independent and compliant with an appropriate HEP STG Duration 02/08/19 Assessment Summary Assessment Pt tolerated treatment well today, although clearly fatigued with activity. Pt reporting no complaints or concerns at this time. Physical Therapy Plan Frequency and Duration Frequency of Treatment 2x/Week Duration of Treatment 3 months Plan of Care Start Date 01/08/19 Plan of Care End Date 04/10/19 Therapeutic Interventions Therapeutic Interventions Aquatic Therapy Balance Training Gait Training Home Exercise Program Manual Therapy Neuromuscular Re-education Patient/Caregiver Education Self-Care/Home Management Soft Tissue Mobilization Therapeutic Activities Therapeutic Exercises Modalities Cold Pack/Ice Massage Electric Stimulation Hot Packs Ultrasound Next Visit Focus/Plan Next Note Type Treatment Note Next Visit Plan Strengthening, dynamic balance training
--- NOTE | 2019-01-13 11:11 | PT.OTN ---
Current Diagnoses Muscle weakness (generalized) (01/13/19) Lung transplant status (01/13/19) Physical Therapy Treatment Note PT-OP-A Visit Information Start: 01/08/19 17:01 Freq: Status: Active Protocol: Document 01/13/19 10:30 DCW (Rec: 01/13/19 11:11 DCW [id number]) Out-Patient Physical Therapy Visit Information Visit Information Visit Type Treatment Note Visit Start Time 10:30 Visit Stop Time 11:15 Total Visit Minutes 45 Visit Number 3 Number of ANY COMMODITY BUYER Visits 0 Evaluation Information Evaluation Date 01/08/19 PT-OP-B Current Condition Start: 01/08/19 17:01 Freq: Status: Active Protocol: Document 01/08/19 15:15 DCW (Rec: 01/08/19 17:30 DCW [id number]) Current Condition History of Current Condition Onset Date 8.5 years s/p lung transplant Current Complaints generalized weakness, fatigue, falls History of Current Condition Pt is an 78 year old male with a complicated medical history , most notably he is eight years s/p lung transplant. Pt reports that ever since his transplant, he has been taking anti-rejection drugs, and I hink they're finally starting to take a toll. Pt reports that over the last two years, he has felt like he is getting weaker and weaker, and my knees are killing me with anything I do. Pt also notes that both his right hip and right shoulder are causing pain most of the time, and he feels weak from the top of my head down to my toes. Pt reports that prior to his transplant, he was told he would need knee replacements, but is now too afraid to have surgery, due to infection and respiratory risk. Pt notes that earlier today, he was unable to lift a 30 pound box at the grocery store, and when he starts walking, my knee hurts by the second step. Prior Treatments and Tests Hx Lung replacement secondary to interstitial lung disease Treatment Goals Patient/Caregiver Goals I would just like to get my arms and legs a little stronger, to make it easier to get around. Prior Functional Status Baseline Function- ADL's Independent Baseline Function- Mobility Independent Current Functional Impairments (Reported) Functional Limitations- ADL's Pt unable to lift a 30# box at the grocery store. Functional Limitations- Mobility/Gait Pt ambulates with a slow gait, small step length. Pt knee pain increases after second step when he begins to walk. Personal Factors Other Personal Factors That May Effect Hx Lung replacement secondary Therapy/Recovery to interstitial lung disease, HTN, DM II, Hx C-diff, GERD, Hx pneumonia, Hx skin cancer PT-OP-C Subjective Start: 01/08/19 17:01 Freq: Status: Active Protocol: Document 01/13/19 10:30 DCW (Rec: 01/13/19 11:11 DCW [id number]) OP-PT Subjective Patient Comments Patient Comments Pt reports he was out shrimping all weekend, and it was a whole body workout. I don't have a muscle or a joint that isn't sore today. PT-OP-D Balance Start: 01/08/19 17:01 Freq: Status: Active Protocol: Document 01/08/19 15:15 DCW (Rec: 01/08/19 17:30 DCW [id number]) OP-PT Balance Assessment Sitting Balance Static Sitting Balance Ability Normal Dynamic Sitting Balance Ability Normal Standing Balance Static Standing Balance Ability Good Dynamic Standing Balance Ability Fair Balance Tests Salazar Balance Test Salazar Balance Test Score 49/56 Salazar Impairment Rating 1 to 19% Impaired (Score 45-55 ) Single Limb Standing Single Limb- Right 8 seconds Single Limb- Left 6 seconds Salazar Balance Assessment Evaluation Sitting to Standing Ability Independent w/out Hands Unsupported Stance Safely- 2 minutes Sitting Unsupported, Feet on Floor Safely- 2 minutes Standing to Sitting Ability Independent, Uncontrolled Transfer Ability Safely, Hand Use Unsupported Stance- Eyes Closed Safely, 10 seconds Unsupported Stance- Eyes Open Independent, 1 minute Reaching Forward Standing Confidently, 10 inches Pick- Up Object From Floor Independent/Safe Look Behind Shoulder - Standing Shifts Weight Well Turning 360 Degrees Turns , < 4 secs Unsupported Stance, Alternating Feet on (I)- 8 Steps in > 20 secs Stair Unsupported Tandem Stance Achieves Tandem Unilateral Leg Stance Lifts Leg/Holds 5-10 secs Total Score Salazar Total Score (out of 56 points) 49 Sampson Fall Scale Copyright Permission Adrián MENDOZA, Adrián RM, Faustino SJ. Development of a scale to identify the fall- prone patient. Can J Aging 1989;8;366-7. Saskia Sampson (2009). Preventing patient falls. (2nd ed). [place]: [place]. PT-OP-E Functional Tests Start: 01/08/19 17:01 Freq: Status: Active Protocol: Document 01/08/19 15:15 DCW (Rec: 01/08/19 17:30 DCW [id number]) Functional Tests Dynamic Gait Index (DGI) Score 15/24 DGI Impairment Rating 20 to <40% Impaired (Score 15- 19) PT-OP-G Mobility & Gait Start: 01/08/19 17:01 Freq: Status: Active Protocol: Document 01/08/19 15:15 DCW (Rec: 01/08/19 17:30 DCW [id number]) OP Mobility Evaluation Transfers Sit to Stand Stand->Sit transfers, pt demonstrates rapid, uncontrolled descent into chair Functional Movements Lifting and Carrying Pt unable to lift 30# box OP Gait Assessment Gait Gait Assistance Required: Independent Distance (Feet) 200 Assistive Devices Assistive Device None Gait Deviations General Gait Pattern Decreased Stride Length Factors Limiting Gait Function Factors Limiting Gait Function Decreased Strength Poor Balance Comments Gait Comments Pt ambulates with a slow pallavi, minimal ability to change speed with instruction. Stair Climbing Evaluation Evaluation Level of Assist On Stairs Independent Devices Stair Climbing Assistive Devices Left Railing Right Railing Technique/Endurance Stair Climbing Direction Ascend and Descend Stair Climbing Technique Step to Step Number of Steps Climbed 3 PT-OP-M Strength Start: 01/08/19 17:01 Freq: Status: Active Protocol: Document 01/08/19 15:15 DCW (Rec: 01/08/19 17:30 DCW [id number]) Shoulder Strength Shoulder Manual Muscle Testing Right Flexion 4- Good- Extension 4+ Good+ Abduction (C5) 4- Good- External Rotation 4- Good- Internal Rotation 4+ Good+ Left Flexion 4 Good Extension 4+ Good+ Abduction (C5) 4 Good External Rotation 4 Good Internal Rotation 4+ Good+ Elbow/Forearm Strength Elbow and Forearm Manual Muscle Testing Right Flexion (C6) 4 Good Extension (C7) 4- Good- Left Flexion (C6) 4 Good Extension (C7) 4- Good- Hip Strength Hip Manual Muscle Testing Right Flexion (L2) 3 Fair Abduction 4 Good Adduction 4- Good- External Rotation 4- Good- Internal Rotation 4- Good- Left Flexion (L2) 3+ Fair+ Abduction 4 Good Adduction 4- Good- External Rotation 4- Good- Internal Rotation 4 Good Knee Strength Knee Manual Muscle Testing Right Flexion (S2) 4- Good- Extension (L3) 4- Good- Left Flexion (S2) 4+ Good+ Extension (L3) 4- Good- PT-OP-Q Treatments Start: 01/08/19 17:01 Freq: Status: Active Protocol: Document 01/13/19 10:30 DCW (Rec: 01/13/19 11:11 DCW [id number]) Cardio Equipment Recumbent Stepper (Sci-Fit) Duration (Minutes) 5 Resistance 3 Seat Position 12 Gym Equipment Cable Column (Body Solid) Lat Pull Down Resistance 30# Shuttle Recovery Unilateral Squats Resistance 37# Shuttle Recovery Platform Stable Bilateral Squats Resistance 75# Shuttle Recovery Platform Stable Shuttle Balance Red Details WBOS, Staggered Stance Comments WBOS (EO/EC, Green Ball Toss) Therapeutic Exercises Standing Exercises Shoulder Adduction Standing Exercise Name Adduction Side bilateral Resistance Lv 2 Equipment Used T-band Shoulder Extension Standing Exercise Name Extension Side bilateral Resistance Lv 2 Equipment Used T-band Rows Standing Exercise Name Rows Side bilateral Resistance Lv 2 Equipment Used T-band Other Exercises Resisted Ambulation Other Exercise Name Fwd, Bkwd, and Side-stepping Resistance Yellow Equipment Used T-band Neuro Re-Education Treatment Balance Activities Heel-toe Ambulation Details Heel-toe Amb Equipment in // bars Tandem Stance Details Tandem Stance Surface Bajwa Foam PT-OP-T Assessment and Plan Start: 01/08/19 17:01 Freq: Status: Active Protocol: Document 01/13/19 10:30 DCW (Rec: 01/13/19 11:11 DCW [id number]) Physical Therapy Assessment Impairments Impairments Activity Tolerance Balance Functional Activities Functional Mobility Gait ROM Strength Transfers Goals Four Impairment Global weakness Intermediate Goal (LTG) UE and LE MMT to grossly 4+/5 LTG Duration 03/10/19 Three Impairment Pt reports increased knee pain when walking Short Term Goal (STG) Pt to tolerate walking for 6 minutes with no reports of increased knee pain STG Duration 02/08/19 Two Impairment Pt at an increased falls risk per 15/24 DGI Short Term Goal (STG) Pt to report no falls over a one month period STG Duration 02/08/19 Intermediate Goal (LTG) Pt to score at least 20/24 on DGI LTG Duration 03/10/19 One Impairment Pt does not have an appropriate home exercise program Short Term Goal (STG) Pt to be independent and compliant with an appropriate HEP STG Duration 02/08/19 Assessment Summary Assessment Pt displayed less fatigue today, despite being very sore from his weekend catching shrimp. Pt reports subjective improvement in his walking and balance activities over the past week. Physical Therapy Plan Frequency and Duration Frequency of Treatment 2x/Week Duration of Treatment 3 months Plan of Care Start Date 01/08/19 Plan of Care End Date 04/10/19 Therapeutic Interventions Therapeutic Interventions Aquatic Therapy Balance Training Gait Training Home Exercise Program Manual Therapy Neuromuscular Re-education Patient/Caregiver Education Self-Care/Home Management Soft Tissue Mobilization Therapeutic Activities Therapeutic Exercises Modalities Cold Pack/Ice Massage Electric Stimulation Hot Packs Ultrasound Next Visit Focus/Plan Next Note Type Treatment Note Next Visit Plan Strengthening, dynamic balance training
--- NOTE | 2019-01-15 14:29 | PT.OTN ---
Current Diagnoses Muscle weakness (generalized) (01/15/19) Lung transplant status (01/15/19) Physical Therapy Treatment Note PT-OP-A Visit Information Start: 01/08/19 17:01 Freq: Status: Active Protocol: Document 01/15/19 13:45 DCW (Rec: 01/15/19 14:29 DCW [id number]) Out-Patient Physical Therapy Visit Information Visit Information Visit Type Treatment Note Visit Start Time 13:45 Visit Stop Time 14:30 Total Visit Minutes 45 Visit Number 4 Number of MACHINE II TRIMMER Visits 0 Evaluation Information Evaluation Date 01/08/19 PT-OP-B Current Condition Start: 01/08/19 17:01 Freq: Status: Active Protocol: Document 01/08/19 15:15 DCW (Rec: 01/08/19 17:30 DCW [id number]) Current Condition History of Current Condition Onset Date 8.5 years s/p lung transplant Current Complaints generalized weakness, fatigue, falls History of Current Condition Pt is an 78 year old male with a complicated medical history , most notably he is eight years s/p lung transplant. Pt reports that ever since his transplant, he has been taking anti-rejection drugs, and I hink they're finally starting to take a toll. Pt reports that over the last two years, he has felt like he is getting weaker and weaker, and my knees are killing me with anything I do. Pt also notes that both his right hip and right shoulder are causing pain most of the time, and he feels weak from the top of my head down to my toes. Pt reports that prior to his transplant, he was told he would need knee replacements, but is now too afraid to have surgery, due to infection and respiratory risk. Pt notes that earlier today, he was unable to lift a 30 pound box at the grocery store, and when he starts walking, my knee hurts by the second step. Prior Treatments and Tests Hx Lung replacement secondary to interstitial lung disease Treatment Goals Patient/Caregiver Goals I would just like to get my arms and legs a little stronger, to make it easier to get around. Prior Functional Status Baseline Function- ADL's Independent Baseline Function- Mobility Independent Current Functional Impairments (Reported) Functional Limitations- ADL's Pt unable to lift a 30# box at the grocery store. Functional Limitations- Mobility/Gait Pt ambulates with a slow gait, small step length. Pt knee pain increases after second step when he begins to walk. Personal Factors Other Personal Factors That May Effect Hx Lung replacement secondary Therapy/Recovery to interstitial lung disease, HTN, DM II, Hx C-diff, GERD, Hx pneumonia, Hx skin cancer PT-OP-C Subjective Start: 01/08/19 17:01 Freq: Status: Active Protocol: Document 01/15/19 13:45 DCW (Rec: 01/15/19 14:29 DCW [id number]) OP-PT Subjective Patient Comments Patient Comments Reports he is not feeling well today, feels like he is fairly off balance and has been having digestive issues. Believes he is doing well enough to participate in therapy, but we'll see. PT-OP-D Balance Start: 01/08/19 17:01 Freq: Status: Active Protocol: Document 01/08/19 15:15 DCW (Rec: 01/08/19 17:30 DCW [id number]) OP-PT Balance Assessment Sitting Balance Static Sitting Balance Ability Normal Dynamic Sitting Balance Ability Normal Standing Balance Static Standing Balance Ability Good Dynamic Standing Balance Ability Fair Balance Tests Salazar Balance Test Salazar Balance Test Score 49/56 Salazar Impairment Rating 1 to 19% Impaired (Score 45-55 ) Single Limb Standing Single Limb- Right 8 seconds Single Limb- Left 6 seconds Salazar Balance Assessment Evaluation Sitting to Standing Ability Independent w/out Hands Unsupported Stance Safely- 2 minutes Sitting Unsupported, Feet on Floor Safely- 2 minutes Standing to Sitting Ability Independent, Uncontrolled Transfer Ability Safely, Hand Use Unsupported Stance- Eyes Closed Safely, 10 seconds Unsupported Stance- Eyes Open Independent, 1 minute Reaching Forward Standing Confidently, 10 inches Pick- Up Object From Floor Independent/Safe Look Behind Shoulder - Standing Shifts Weight Well Turning 360 Degrees Turns , < 4 secs Unsupported Stance, Alternating Feet on (I)- 8 Steps in > 20 secs Stair Unsupported Tandem Stance Achieves Tandem Unilateral Leg Stance Lifts Leg/Holds 5-10 secs Total Score Salazar Total Score (out of 56 points) 49 Sampson Fall Scale Copyright Permission Adrián MENDOZA, Adrián RM, Faustino SJ. Development of a scale to identify the fall- prone patient. Can J Aging 1989;8;366-7. Saskia Sampson (2009). Preventing patient falls. (2nd ed). [place]: [place]. PT-OP-E Functional Tests Start: 01/08/19 17:01 Freq: Status: Active Protocol: Document 01/08/19 15:15 DCW (Rec: 01/08/19 17:30 DCW [id number]) Functional Tests Dynamic Gait Index (DGI) Score 15/24 DGI Impairment Rating 20 to <40% Impaired (Score 15- 19) PT-OP-G Mobility & Gait Start: 01/08/19 17:01 Freq: Status: Active Protocol: Document 01/08/19 15:15 DCW (Rec: 01/08/19 17:30 DCW [id number]) OP Mobility Evaluation Transfers Sit to Stand Stand->Sit transfers, pt demonstrates rapid, uncontrolled descent into chair Functional Movements Lifting and Carrying Pt unable to lift 30# box OP Gait Assessment Gait Gait Assistance Required: Independent Distance (Feet) 200 Assistive Devices Assistive Device None Gait Deviations General Gait Pattern Decreased Stride Length Factors Limiting Gait Function Factors Limiting Gait Function Decreased Strength Poor Balance Comments Gait Comments Pt ambulates with a slow pallavi, minimal ability to change speed with instruction. Stair Climbing Evaluation Evaluation Level of Assist On Stairs Independent Devices Stair Climbing Assistive Devices Left Railing Right Railing Technique/Endurance Stair Climbing Direction Ascend and Descend Stair Climbing Technique Step to Step Number of Steps Climbed 3 PT-OP-M Strength Start: 01/08/19 17:01 Freq: Status: Active Protocol: Document 01/08/19 15:15 DCW (Rec: 01/08/19 17:30 DCW [id number]) Shoulder Strength Shoulder Manual Muscle Testing Right Flexion 4- Good- Extension 4+ Good+ Abduction (C5) 4- Good- External Rotation 4- Good- Internal Rotation 4+ Good+ Left Flexion 4 Good Extension 4+ Good+ Abduction (C5) 4 Good External Rotation 4 Good Internal Rotation 4+ Good+ Elbow/Forearm Strength Elbow and Forearm Manual Muscle Testing Right Flexion (C6) 4 Good Extension (C7) 4- Good- Left Flexion (C6) 4 Good Extension (C7) 4- Good- Hip Strength Hip Manual Muscle Testing Right Flexion (L2) 3 Fair Abduction 4 Good Adduction 4- Good- External Rotation 4- Good- Internal Rotation 4- Good- Left Flexion (L2) 3+ Fair+ Abduction 4 Good Adduction 4- Good- External Rotation 4- Good- Internal Rotation 4 Good Knee Strength Knee Manual Muscle Testing Right Flexion (S2) 4- Good- Extension (L3) 4- Good- Left Flexion (S2) 4+ Good+ Extension (L3) 4- Good- PT-OP-Q Treatments Start: 01/08/19 17:01 Freq: Status: Active Protocol: Document 01/15/19 13:45 DCW (Rec: 01/15/19 14:29 DCW [id number]) Cardio Equipment Recumbent Bicycle Duration (Minutes) 5 Resistance 3 Seat Position 10 Gym Equipment Cable Column (Body Solid) Rows Details Rows Resistance 30# Lat Pull Down Details Lat Pull-down Resistance 30# Shuttle Balance Red Details WBOS, Staggered Stance Comments WBOS (EO/EC, Red Ball Toss) Therapeutic Ball Bridging Exercise Details Bridging /c feet on ball Ball Size/Color Red - 55 cm Body Position Supine Therapeutic Exercises Supine Exercises Straight Leg Raise Supine Exercise Name SLR Side bilateral Standing Exercises External Rotation Standing Exercise Name Shoulder ER Side bilateral Resistance Lv 2 Equipment Used T-band Shoulder Horizontal Abduction Standing Exercise Name Horizontal Abduction Side bilateral Resistance Lv 2 Equipment Used T-band Step-ups Standing Exercise Name Step-ups Resistance 8->4 step Comments c/o knee pain /c 8 step Other Exercises Resisted Ambulation Other Exercise Name Fwd, Bkwd, and Side-stepping Resistance Green Equipment Used T-band PT-OP-T Assessment and Plan Start: 01/08/19 17:01 Freq: Status: Active Protocol: Document 01/15/19 13:45 DCW (Rec: 01/15/19 14:29 DCW [id number]) Physical Therapy Assessment Impairments Impairments Activity Tolerance Balance Functional Activities Functional Mobility Gait ROM Strength Transfers Goals Four Impairment Global weakness Desk Assistant Goal (LTG) UE and LE MMT to grossly 4+/5 LTG Duration 03/10/19 Three Impairment Pt reports increased knee pain when walking Short Term Goal (STG) Pt to tolerate walking for 6 minutes with no reports of increased knee pain STG Duration 02/08/19 Two Impairment Pt at an increased falls risk per 15/24 DGI Short Term Goal (STG) Pt to report no falls over a one month period STG Duration 02/08/19 Desk Assistant Goal (LTG) Pt to score at least 20/24 on DGI LTG Duration 03/10/19 One Impairment Pt does not have an appropriate home exercise program Short Term Goal (STG) Pt to be independent and compliant with an appropriate HEP STG Duration 02/08/19 Assessment Summary Assessment Pt still demonstrating improvement with activity tolerance, able to complete full session with minimal rest breaks, although does report ongoing fatigue. Physical Therapy Plan Frequency and Duration Frequency of Treatment 2x/Week Duration of Treatment 3 months Plan of Care Start Date 01/08/19 Plan of Care End Date 04/10/19 Therapeutic Interventions Therapeutic Interventions Aquatic Therapy Balance Training Gait Training Home Exercise Program Manual Therapy Neuromuscular Re-education Patient/Caregiver Education Self-Care/Home Management Soft Tissue Mobilization Therapeutic Activities Therapeutic Exercises Modalities Cold Pack/Ice Massage Electric Stimulation Hot Packs Ultrasound Next Visit Focus/Plan Next Note Type Treatment Note Next Visit Plan Strengthening, dynamic balance training
--- NOTE | 2019-01-20 11:15 | PT.OTN ---
Current Diagnoses Muscle weakness (generalized) (01/20/19) Lung transplant status (01/20/19) Physical Therapy Treatment Note PT-OP-A Visit Information Start: 01/08/19 17:01 Freq: Status: Active Protocol: Document 01/20/19 10:30 DCW (Rec: 01/20/19 11:15 DCW [id number]) Out-Patient Physical Therapy Visit Information Visit Information Visit Type Treatment Note Visit Start Time 10:30 Visit Stop Time 11:15 Total Visit Minutes 45 Visit Number 5 Number of TRANSFER STATION OPERATOR Visits 0 Evaluation Information Evaluation Date 01/08/19 PT-OP-B Current Condition Start: 01/08/19 17:01 Freq: Status: Active Protocol: Document 01/08/19 15:15 DCW (Rec: 01/08/19 17:30 DCW [id number]) Current Condition History of Current Condition Onset Date 8.5 years s/p lung transplant Current Complaints generalized weakness, fatigue, falls History of Current Condition Pt is an 78 year old male with a complicated medical history , most notably he is eight years s/p lung transplant. Pt reports that ever since his transplant, he has been taking anti-rejection drugs, and I hink they're finally starting to take a toll. Pt reports that over the last two years, he has felt like he is getting weaker and weaker, and my knees are killing me with anything I do. Pt also notes that both his right hip and right shoulder are causing pain most of the time, and he feels weak from the top of my head down to my toes. Pt reports that prior to his transplant, he was told he would need knee replacements, but is now too afraid to have surgery, due to infection and respiratory risk. Pt notes that earlier today, he was unable to lift a 30 pound box at the grocery store, and when he starts walking, my knee hurts by the second step. Prior Treatments and Tests Hx Lung replacement secondary to interstitial lung disease Treatment Goals Patient/Caregiver Goals I would just like to get my arms and legs a little stronger, to make it easier to get around. Prior Functional Status Baseline Function- ADL's Independent Baseline Function- Mobility Independent Current Functional Impairments (Reported) Functional Limitations- ADL's Pt unable to lift a 30# box at the grocery store. Functional Limitations- Mobility/Gait Pt ambulates with a slow gait, small step length. Pt knee pain increases after second step when he begins to walk. Personal Factors Other Personal Factors That May Effect Hx Lung replacement secondary Therapy/Recovery to interstitial lung disease, HTN, DM II, Hx C-diff, GERD, Hx pneumonia, Hx skin cancer PT-OP-C Subjective Start: 01/08/19 17:01 Freq: Status: Active Protocol: Document 01/20/19 10:30 DCW (Rec: 01/20/19 11:15 DCW [id number]) OP-PT Subjective Patient Comments Patient Comments Pt notes he is pretty sore today after spending a lot of time potting plants over the weekend. PT-OP-D Balance Start: 01/08/19 17:01 Freq: Status: Active Protocol: Document 01/08/19 15:15 DCW (Rec: 01/08/19 17:30 DCW [id number]) OP-PT Balance Assessment Sitting Balance Static Sitting Balance Ability Normal Dynamic Sitting Balance Ability Normal Standing Balance Static Standing Balance Ability Good Dynamic Standing Balance Ability Fair Balance Tests Salazar Balance Test Salazar Balance Test Score 49/56 Salazar Impairment Rating 1 to 19% Impaired (Score 45-55 ) Single Limb Standing Single Limb- Right 8 seconds Single Limb- Left 6 seconds Salazar Balance Assessment Evaluation Sitting to Standing Ability Independent w/out Hands Unsupported Stance Safely- 2 minutes Sitting Unsupported, Feet on Floor Safely- 2 minutes Standing to Sitting Ability Independent, Uncontrolled Transfer Ability Safely, Hand Use Unsupported Stance- Eyes Closed Safely, 10 seconds Unsupported Stance- Eyes Open Independent, 1 minute Reaching Forward Standing Confidently, 10 inches Pick- Up Object From Floor Independent/Safe Look Behind Shoulder - Standing Shifts Weight Well Turning 360 Degrees Turns , < 4 secs Unsupported Stance, Alternating Feet on (I)- 8 Steps in > 20 secs Stair Unsupported Tandem Stance Achieves Tandem Unilateral Leg Stance Lifts Leg/Holds 5-10 secs Total Score Salazar Total Score (out of 56 points) 49 Sampson Fall Scale Copyright Permission Adrián MENDOZA, Adrián RM, Faustino SJ. Development of a scale to identify the fall- prone patient. Can J Aging 1989;8;366-7. Saskia Sampson (2009). Preventing patient falls. (2nd ed). [place]: [place]. PT-OP-E Functional Tests Start: 01/08/19 17:01 Freq: Status: Active Protocol: Document 01/08/19 15:15 DCW (Rec: 01/08/19 17:30 DCW [id number]) Functional Tests Dynamic Gait Index (DGI) Score 15/24 DGI Impairment Rating 20 to <40% Impaired (Score 15- 19) PT-OP-G Mobility & Gait Start: 01/08/19 17:01 Freq: Status: Active Protocol: Document 01/08/19 15:15 DCW (Rec: 01/08/19 17:30 DCW [id number]) OP Mobility Evaluation Transfers Sit to Stand Stand->Sit transfers, pt demonstrates rapid, uncontrolled descent into chair Functional Movements Lifting and Carrying Pt unable to lift 30# box OP Gait Assessment Gait Gait Assistance Required: Independent Distance (Feet) 200 Assistive Devices Assistive Device None Gait Deviations General Gait Pattern Decreased Stride Length Factors Limiting Gait Function Factors Limiting Gait Function Decreased Strength Poor Balance Comments Gait Comments Pt ambulates with a slow pallavi, minimal ability to change speed with instruction. Stair Climbing Evaluation Evaluation Level of Assist On Stairs Independent Devices Stair Climbing Assistive Devices Left Railing Right Railing Technique/Endurance Stair Climbing Direction Ascend and Descend Stair Climbing Technique Step to Step Number of Steps Climbed 3 PT-OP-M Strength Start: 01/08/19 17:01 Freq: Status: Active Protocol: Document 01/08/19 15:15 DCW (Rec: 01/08/19 17:30 [facility] [id number]) Shoulder Strength Shoulder Manual Muscle Testing Right Flexion 4- Good- Extension 4+ Good+ Abduction (C5) 4- Good- External Rotation 4- Good- Internal Rotation 4+ Good+ Left Flexion 4 Good Extension 4+ Good+ Abduction (C5) 4 Good External Rotation 4 Good Internal Rotation 4+ Good+ Elbow/Forearm Strength Elbow and Forearm Manual Muscle Testing Right Flexion (C6) 4 Good Extension (C7) 4- Good- Left Flexion (C6) 4 Good Extension (C7) 4- Good- Hip Strength Hip Manual Muscle Testing Right Flexion (L2) 3 Fair Abduction 4 Good Adduction 4- Good- External Rotation 4- Good- Internal Rotation 4- Good- Left Flexion (L2) 3+ Fair+ Abduction 4 Good Adduction 4- Good- External Rotation 4- Good- Internal Rotation 4 Good Knee Strength Knee Manual Muscle Testing Right Flexion (S2) 4- Good- Extension (L3) 4- Good- Left Flexion (S2) 4+ Good+ Extension (L3) 4- Good- PT-OP-Q Treatments Start: 01/08/19 17:01 Freq: Status: Active Protocol: Document 01/20/19 10:30 DCW (Rec: 01/20/19 11:15 DCW [id number]) Cardio Equipment Recumbent Stepper (Sci-Fit) Duration (Minutes) 5 Resistance 3 Seat Position 11 Gym Equipment Shuttle Recovery Unilateral Squats Resistance 37# R, 25# L Shuttle Recovery Platform Stable Bilateral Squats Resistance 75# Shuttle Recovery Platform Stable Shuttle Balance Red Details WBOS, Staggered Stance Comments WBOS (EO/EC, Red Ball Toss) Therapeutic Exercises Standing Exercises Wall Clocks Standing Exercise Name Wall Clocks Resistance Yellow Equipment Used T-band Other Exercises Resisted Ambulation Other Exercise Name Fwd, Bkwd, and Side-stepping Resistance Green Equipment Used T-band Neuro Re-Education Treatment Balance Activities SLS Details SLS Heel-toe Ambulation Details Heel-toe Amb Equipment in // bars Comments Fwd/Bkwd Tandem Stance Details Tandem Stance Surface Bajwa Foam PT-OP-T Assessment and Plan Start: 01/08/19 17:01 Freq: Status: Active Protocol: Document 01/20/19 10:30 DCW (Rec: 01/20/19 11:15 DCW [id number]) Physical Therapy Assessment Impairments Impairments Activity Tolerance Balance Functional Activities Functional Mobility Gait ROM Strength Transfers Goals Four Impairment Global weakness County Administrator Goal (LTG) UE and LE MMT to grossly 4+/5 LTG Duration 03/10/19 Three Impairment Pt reports increased knee pain when walking Short Term Goal (STG) Pt to tolerate walking for 6 minutes with no reports of increased knee pain STG Duration 02/08/19 Two Impairment Pt at an increased falls risk per 15/24 DGI Short Term Goal (STG) Pt to report no falls over a one month period STG Duration 02/08/19 Half-Way Goal (LTG) Pt to score at least 20/24 on DGI LTG Duration 03/10/19 One Impairment Pt does not have an appropriate home exercise program Short Term Goal (STG) Pt to be independent and compliant with an appropriate HEP STG Duration 02/08/19 Assessment Summary Assessment Pt had no complaints of fatigue today, tolerated all activities well. Physical Therapy Plan Frequency and Duration Frequency of Treatment 2x/Week Duration of Treatment 3 months Plan of Care Start Date 01/08/19 Plan of Care End Date 04/10/19 Therapeutic Interventions Therapeutic Interventions Aquatic Therapy Balance Training Gait Training Home Exercise Program Manual Therapy Neuromuscular Re-education Patient/Caregiver Education Self-Care/Home Management Soft Tissue Mobilization Therapeutic Activities Therapeutic Exercises Modalities Cold Pack/Ice Massage Electric Stimulation Hot Packs Ultrasound Next Visit Focus/Plan Next Note Type Treatment Note Next Visit Plan Strengthening, dynamic balance training
--- NOTE | 2019-01-22 11:58 | PT.OTN ---
Current Diagnoses Muscle weakness (generalized) (01/22/19) Lung transplant status (01/22/19) Physical Therapy Treatment Note PT-OP-A Visit Information Start: 01/08/19 17:01 Freq: Status: Active Protocol: Document 01/22/19 11:15 DCW (Rec: 01/22/19 11:58 DCW [id number]) Out-Patient Physical Therapy Visit Information Visit Information Visit Type Treatment Note Visit Start Time 11:15 Visit Stop Time 12:00 Total Visit Minutes 45 Visit Number 6 Number of STORE CONSULTANT Visits 0 Evaluation Information Evaluation Date 01/08/19 PT-OP-B Current Condition Start: 01/08/19 17:01 Freq: Status: Active Protocol: Document 01/08/19 15:15 DCW (Rec: 01/08/19 17:30 DCW [id number]) Current Condition History of Current Condition Onset Date 8.5 years s/p lung transplant Current Complaints generalized weakness, fatigue, falls History of Current Condition Pt is an 78 year old male with a complicated medical history , most notably he is eight years s/p lung transplant. Pt reports that ever since his transplant, he has been taking anti-rejection drugs, and I hink they're finally starting to take a toll. Pt reports that over the last two years, he has felt like he is getting weaker and weaker, and my knees are killing me with anything I do. Pt also notes that both his right hip and right shoulder are causing pain most of the time, and he feels weak from the top of my head down to my toes. Pt reports that prior to his transplant, he was told he would need knee replacements, but is now too afraid to have surgery, due to infection and respiratory risk. Pt notes that earlier today, he was unable to lift a 30 pound box at the grocery store, and when he starts walking, my knee hurts by the second step. Prior Treatments and Tests Hx Lung replacement secondary to interstitial lung disease Treatment Goals Patient/Caregiver Goals I would just like to get my arms and legs a little stronger, to make it easier to get around. Prior Functional Status Baseline Function- ADL's Independent Baseline Function- Mobility Independent Current Functional Impairments (Reported) Functional Limitations- ADL's Pt unable to lift a 30# box at the grocery store. Functional Limitations- Mobility/Gait Pt ambulates with a slow gait, small step length. Pt knee pain increases after second step when he begins to walk. Personal Factors Other Personal Factors That May Effect Hx Lung replacement secondary Therapy/Recovery to interstitial lung disease, HTN, DM II, Hx C-diff, GERD, Hx pneumonia, Hx skin cancer PT-OP-C Subjective Start: 01/08/19 17:01 Freq: Status: Active Protocol: Document 01/22/19 11:15 DCW (Rec: 01/22/19 11:58 DCW [id number]) OP-PT Subjective Patient Comments Patient Comments Pt is feeling like nothing has really changed since Sunday, still feeling pretty sore since his yard work this weekend. PT-OP-D Balance Start: 01/08/19 17:01 Freq: Status: Active Protocol: Document 01/08/19 15:15 DCW (Rec: 01/08/19 17:30 DCW [id number]) OP-PT Balance Assessment Sitting Balance Static Sitting Balance Ability Normal Dynamic Sitting Balance Ability Normal Standing Balance Static Standing Balance Ability Good Dynamic Standing Balance Ability Fair Balance Tests Salazar Balance Test Salazar Balance Test Score 49/56 Salazar Impairment Rating 1 to 19% Impaired (Score 45-55 ) Single Limb Standing Single Limb- Right 8 seconds Single Limb- Left 6 seconds Salazar Balance Assessment Evaluation Sitting to Standing Ability Independent w/out Hands Unsupported Stance Safely- 2 minutes Sitting Unsupported, Feet on Floor Safely- 2 minutes Standing to Sitting Ability Independent, Uncontrolled Transfer Ability Safely, Hand Use Unsupported Stance- Eyes Closed Safely, 10 seconds Unsupported Stance- Eyes Open Independent, 1 minute Reaching Forward Standing Confidently, 10 inches Pick- Up Object From Floor Independent/Safe Look Behind Shoulder - Standing Shifts Weight Well Turning 360 Degrees Turns , < 4 secs Unsupported Stance, Alternating Feet on (I)- 8 Steps in > 20 secs Stair Unsupported Tandem Stance Achieves Tandem Unilateral Leg Stance Lifts Leg/Holds 5-10 secs Total Score Salazar Total Score (out of 56 points) 49 Sampson Fall Scale Copyright Permission Adrián MENDOZA, Adrián RM, Faustino SJ. Development of a scale to identify the fall- prone patient. Can J Aging 1989;8;366-7. Saskia Sampson (2009). Preventing patient falls. (2nd ed). [place]: [place]. PT-OP-E Functional Tests Start: 01/08/19 17:01 Freq: Status: Active Protocol: Document 01/08/19 15:15 DCW (Rec: 01/08/19 17:30 DCW [id number]) Functional Tests Dynamic Gait Index (DGI) Score 15/24 DGI Impairment Rating 20 to <40% Impaired (Score 15- 19) PT-OP-G Mobility & Gait Start: 01/08/19 17:01 Freq: Status: Active Protocol: Document 01/08/19 15:15 DCW (Rec: 01/08/19 17:30 DCW [id number]) OP Mobility Evaluation Transfers Sit to Stand Stand->Sit transfers, pt demonstrates rapid, uncontrolled descent into chair Functional Movements Lifting and Carrying Pt unable to lift 30# box OP Gait Assessment Gait Gait Assistance Required: Independent Distance (Feet) 200 Assistive Devices Assistive Device None Gait Deviations General Gait Pattern Decreased Stride Length Factors Limiting Gait Function Factors Limiting Gait Function Decreased Strength Poor Balance Comments Gait Comments Pt ambulates with a slow pallavi, minimal ability to change speed with instruction. Stair Climbing Evaluation Evaluation Level of Assist On Stairs Independent Devices Stair Climbing Assistive Devices Left Railing Right Railing Technique/Endurance Stair Climbing Direction Ascend and Descend Stair Climbing Technique Step to Step Number of Steps Climbed 3 PT-OP-M Strength Start: 01/08/19 17:01 Freq: Status: Active Protocol: Document 01/08/19 15:15 DCW (Rec: 01/08/19 17:30 DCW [id number]) Shoulder Strength Shoulder Manual Muscle Testing Right Flexion 4- Good- Extension 4+ Good+ Abduction (C5) 4- Good- External Rotation 4- Good- Internal Rotation 4+ Good+ Left Flexion 4 Good Extension 4+ Good+ Abduction (C5) 4 Good External Rotation 4 Good Internal Rotation 4+ Good+ Elbow/Forearm Strength Elbow and Forearm Manual Muscle Testing Right Flexion (C6) 4 Good Extension (C7) 4- Good- Left Flexion (C6) 4 Good Extension (C7) 4- Good- Hip Strength Hip Manual Muscle Testing Right Flexion (L2) 3 Fair Abduction 4 Good Adduction 4- Good- External Rotation 4- Good- Internal Rotation 4- Good- Left Flexion (L2) 3+ Fair+ Abduction 4 Good Adduction 4- Good- External Rotation 4- Good- Internal Rotation 4 Good Knee Strength Knee Manual Muscle Testing Right Flexion (S2) 4- Good- Extension (L3) 4- Good- Left Flexion (S2) 4+ Good+ Extension (L3) 4- Good- PT-OP-Q Treatments Start: 01/08/19 17:01 Freq: Status: Active Protocol: Document 01/22/19 11:15 DCW (Rec: 01/22/19 11:58 DCW [id number]) Cardio Equipment Upper Body Ergometer (UBE) Duration (Minutes) 4 RPM 60 Seat Position 13 Height 3 Other fwd/bkwd Recumbent Stepper (Sci-Fit) Duration (Minutes) 5 Resistance 4 Seat Position 10 Gym Equipment Cable Column (Body Solid) Rows Details Rows Resistance 20# Lat Pull Down Details Lat Pull-down Resistance 30# Shuttle Recovery Unilateral Squats Resistance 37# R, 25# L Shuttle Recovery Platform Stable Bilateral Squats Resistance 75# Shuttle Recovery Platform Stable Shuttle Balance Red Details WBOS, Staggered Stance Comments WBOS (EO/EC, Red Ball Toss) Therapeutic Exercises Standing Exercises Shoulder Flexion Standing Exercise Name Flexion Side bilateral Resistance 3# Reps/Minutes x15 Shoulder Abduction Standing Exercise Name Abduction Side bilateral Resistance 3# Reps/Minutes x15 Other Exercises Resisted Ambulation Other Exercise Name Fwd, Bkwd, and Side-stepping Resistance Green Equipment Used T-band PT-OP-T Assessment and Plan Start: 01/08/19 17:01 Freq: Status: Active Protocol: Document 01/22/19 11:15 DCW (Rec: 01/22/19 11:58 DCW [id number]) Physical Therapy Assessment Impairments Impairments Activity Tolerance Balance Functional Activities Functional Mobility Gait ROM Strength Transfers Goals Four Impairment Global weakness Order Entry Administrator Goal (LTG) UE and LE MMT to grossly 4+/5 LTG Duration 03/10/19 Three Impairment Pt reports increased knee pain when walking Short Term Goal (STG) Pt to tolerate walking for 6 minutes with no reports of increased knee pain STG Duration 02/08/19 Two Impairment Pt at an increased falls risk per 15/24 DGI Short Term Goal (STG) Pt to report no falls over a one month period STG Duration 02/08/19 Shelter Goal (LTG) Pt to score at least 20/24 on DGI LTG Duration 03/10/19 One Impairment Pt does not have an appropriate home exercise program Short Term Goal (STG) Pt to be independent and compliant with an appropriate HEP STG Duration 02/08/19 Assessment Summary Assessment Pt did very well today, despite feelings of fatigue and generalized soreness. Physical Therapy Plan Frequency and Duration Frequency of Treatment 2x/Week Duration of Treatment 3 months Plan of Care Start Date 01/08/19 Plan of Care End Date 04/10/19 Therapeutic Interventions Therapeutic Interventions Aquatic Therapy Balance Training Gait Training Home Exercise Program Manual Therapy Neuromuscular Re-education Patient/Caregiver Education Self-Care/Home Management Soft Tissue Mobilization Therapeutic Activities Therapeutic Exercises Modalities Cold Pack/Ice Massage Electric Stimulation Hot Packs Ultrasound Next Visit Focus/Plan Next Note Type Treatment Note Next Visit Plan Strengthening, dynamic balance training
--- NOTE | 2019-01-28 11:44 | PT.OTN ---
Current Diagnoses Muscle weakness (generalized) (01/28/19) Lung transplant status (01/28/19) Physical Therapy Treatment Note PT-OP-A Visit Information Start: 01/08/19 17:01 Freq: Status: Active Protocol: Document 01/28/19 11:38 SA (Rec: 01/28/19 11:44 SA [email or web address]) Out-Patient Physical Therapy Visit Information Visit Information Visit Type Treatment Note Visit Start Time 10:30 Visit Stop Time 11:15 Total Visit Minutes 45 Visit Number 7 Number of HEAT PUMP INSTALLER Visits 1 PT-OP-B Current Condition Start: 01/08/19 17:01 Freq: Status: Active Protocol: Document 01/08/19 15:15 DCW (Rec: 01/08/19 17:30 DCW [id number]) Current Condition History of Current Condition Onset Date 8.5 years s/p lung transplant Current Complaints generalized weakness, fatigue, falls History of Current Condition Pt is an 78 year old male with a complicated medical history , most notably he is eight years s/p lung transplant. Pt reports that ever since his transplant, he has been taking anti-rejection drugs, and I hink they're finally starting to take a toll. Pt reports that over the last two years, he has felt like he is getting weaker and weaker, and my knees are killing me with anything I do. Pt also notes that both his right hip and right shoulder are causing pain most of the time, and he feels weak from the top of my head down to my toes. Pt reports that prior to his transplant, he was told he would need knee replacements, but is now too afraid to have surgery, due to infection and respiratory risk. Pt notes that earlier today, he was unable to lift a 30 pound box at the grocery store, and when he starts walking, my knee hurts by the second step. Prior Treatments and Tests Hx Lung replacement secondary to interstitial lung disease Treatment Goals Patient/Caregiver Goals I would just like to get my arms and legs a little stronger, to make it easier to get around. Prior Functional Status Baseline Function- ADL's Independent Baseline Function- Mobility Independent Current Functional Impairments (Reported) Functional Limitations- ADL's Pt unable to lift a 30# box at the grocery store. Functional Limitations- Mobility/Gait Pt ambulates with a slow gait, small step length. Pt knee pain increases after second step when he begins to walk. Personal Factors Other Personal Factors That May Effect Hx Lung replacement secondary Therapy/Recovery to interstitial lung disease, HTN, DM II, Hx C-diff, GERD, Hx pneumonia, Hx skin cancer PT-OP-C Subjective Start: 01/08/19 17:01 Freq: Status: Active Protocol: Document 01/28/19 11:38 SA (Rec: 01/28/19 11:44 SA [email or web address]) OP-PT Subjective Patient Comments Patient Comments Pt reports very slow progress in regards to strength gains and balance, doing UE exercise with TB for HEP. PT-OP-D Balance Start: 01/08/19 17:01 Freq: Status: Active Protocol: Document 01/08/19 15:15 DCW (Rec: 01/08/19 17:30 DCW [id number]) OP-PT Balance Assessment Sitting Balance Static Sitting Balance Ability Normal Dynamic Sitting Balance Ability Normal Standing Balance Static Standing Balance Ability Good Dynamic Standing Balance Ability Fair Balance Tests Salazar Balance Test Salazar Balance Test Score 49/56 Salazar Impairment Rating 1 to 19% Impaired (Score 45-55 ) Single Limb Standing Single Limb- Right 8 seconds Single Limb- Left 6 seconds Salazar Balance Assessment Evaluation Sitting to Standing Ability Independent w/out Hands Unsupported Stance Safely- 2 minutes Sitting Unsupported, Feet on Floor Safely- 2 minutes Standing to Sitting Ability Independent, Uncontrolled Transfer Ability Safely, Hand Use Unsupported Stance- Eyes Closed Safely, 10 seconds Unsupported Stance- Eyes Open Independent, 1 minute Reaching Forward Standing Confidently, 10 inches Pick- Up Object From Floor Independent/Safe Look Behind Shoulder - Standing Shifts Weight Well Turning 360 Degrees Turns , < 4 secs Unsupported Stance, Alternating Feet on (I)- 8 Steps in > 20 secs Stair Unsupported Tandem Stance Achieves Tandem Unilateral Leg Stance Lifts Leg/Holds 5-10 secs Total Score Salazar Total Score (out of 56 points) 49 Sampson Fall Scale Copyright Permission Adrián JM, Adrián RM, Faustino SJ. Development of a scale to identify the fall- prone patient. Can J Aging 1989;8;366-7. Saskia Sampson (2009). Preventing patient falls. (2nd ed). [place]: [place]. PT-OP-E Functional Tests Start: 01/08/19 17:01 Freq: Status: Active Protocol: Document 01/08/19 15:15 DCW (Rec: 01/08/19 17:30 DCW [id number]) Functional Tests Dynamic Gait Index (DGI) Score 1524 DGI Impairment Rating 20 to <40% Impaired (Score 15- 19) PT-OP-G Mobility & Gait Start: 01/08/19 17:01 Freq: Status: Active Protocol: Document 01/08/19 15:15 DCW (Rec: 01/08/19 17:30 DCW [id number]) OP Mobility Evaluation Transfers Sit to Stand Stand->Sit transfers, pt demonstrates rapid, uncontrolled descent into chair Functional Movements Lifting and Carrying Pt unable to lift 30# box OP Gait Assessment Gait Gait Assistance Required: Independent Distance (Feet) 200 Assistive Devices Assistive Device None Gait Deviations General Gait Pattern Decreased Stride Length Factors Limiting Gait Function Factors Limiting Gait Function Decreased Strength Poor Balance Comments Gait Comments Pt ambulates with a slow pallavi, minimal ability to change speed with instruction. Stair Climbing Evaluation Evaluation Level of Assist On Stairs Independent Devices Stair Climbing Assistive Devices Left Railing Right Railing Technique/Endurance Stair Climbing Direction Ascend and Descend Stair Climbing Technique Step to Step Number of Steps Climbed 3 PT-OP-M Strength Start: 01/08/19 17:01 Freq: Status: Active Protocol: Document 01/08/19 15:15 DCW (Rec: 01/08/19 17:30 DCW [id number]) Shoulder Strength Shoulder Manual Muscle Testing Right Flexion 4- Good- Extension 4+ Good+ Abduction (C5) 4- Good- External Rotation 4- Good- Internal Rotation 4+ Good+ Left Flexion 4 Good Extension 4+ Good+ Abduction (C5) 4 Good External Rotation 4 Good Internal Rotation 4+ Good+ Elbow/Forearm Strength Elbow and Forearm Manual Muscle Testing Right Flexion (C6) 4 Good Extension (C7) 4- Good- Left Flexion (C6) 4 Good Extension (C7) 4- Good- Hip Strength Hip Manual Muscle Testing Right Flexion (L2) 3 Fair Abduction 4 Good Adduction 4- Good- External Rotation 4- Good- Internal Rotation 4- Good- Left Flexion (L2) 3+ Fair+ Abduction 4 Good Adduction 4- Good- External Rotation 4- Good- Internal Rotation 4 Good Knee Strength Knee Manual Muscle Testing Right Flexion (S2) 4- Good- Extension (L3) 4- Good- Left Flexion (S2) 4+ Good+ Extension (L3) 4- Good- PT-OP-Q Treatments Start: 01/08/19 17:01 Freq: Status: Active Protocol: Document 01/28/19 11:38 SA (Rec: 01/28/19 11:44 [email or web address]) Cardio Equipment Upper Body Ergometer (UBE) Duration (Minutes) 5 RPM 60 Seat Position 13 Height 3 Other fwd/bkwd Gym Equipment Cable Column (Body Solid) Rows Details Rows Resistance 20# Lat Pull Down Details Lat Pull-down Resistance 30# Shuttle Recovery Unilateral Squats Resistance 37# R, 25# L Shuttle Recovery Platform Stable Bilateral Squats Resistance 75# Shuttle Recovery Platform Stable Shuttle Balance Red Details WBOS, Staggered Stance Reps/Duration 5 min Comments WBOS (EO/EC, Red Ball Toss) Therapeutic Ball Bridging Exercise Details Bridging /c feet on ball Ball Size/Color Red - 55 cm Body Position Supine Comments pain free Therapeutic Exercises Supine Exercises Straight Leg Raise Supine Exercise Name SLR Side bilateral Standing Exercises Wall Clocks Standing Exercise Name Wall Clocks Resistance Yellow Equipment Used T-band Shoulder Extension Standing Exercise Name Extension Side bilateral Resistance Lv 2 Equipment Used T-band Shoulder Flexion Standing Exercise Name Flexion Side bilateral Resistance 3# Reps/Minutes x15 Shoulder Abduction Standing Exercise Name Abduction Side bilateral Resistance 3# Reps/Minutes x15 Neuro Re-Education Treatment Balance Activities SLS Details SLS Surface level Comments at bar Tandem Stance Details Tandem Stance Surface Bajwa Foam PT-OP-T Assessment and Plan Start: 01/08/19 17:01 Freq: Status: Active Protocol: Document 01/28/19 11:38 (Rec: 01/28/19 11:44 [email or web address]) Physical Therapy Assessment Assessment Summary Assessment Pt tolerating exercise and balance progressions well, felt fatigued at end of session. Added SLS at counter to HEP. Physical Therapy Plan Next Visit Focus/Plan Next Note Type Treatment Note Next Visit Plan Strengthening, dynamic balance training
--- NOTE | 2019-01-30 11:17 | PT.OTN ---
Current Diagnoses Muscle weakness (generalized) (01/30/19) Lung transplant status (01/30/19) Physical Therapy Treatment Note PT-OP-A Visit Information Start: 01/08/19 17:01 Freq: Status: Active Protocol: Document 01/30/19 10:33 [facility] (Rec: 01/30/19 11:16 [facility] [id number]) Out-Patient Physical Therapy Visit Information Visit Information Visit Type Treatment Note Visit Start Time 10:33 Visit Stop Time 11:13 Total Visit Minutes 40 Visit Number 8 Number of MONOLOGIST Visits 0 PT-OP-B Current Condition Start: 01/08/19 17:01 Freq: Status: Active Protocol: Document 01/08/19 15:15 DCW (Rec: 01/08/19 17:30 DCW [id number]) Current Condition History of Current Condition Onset Date 8.5 years s/p lung transplant Current Complaints generalized weakness, fatigue, falls History of Current Condition Pt is an 78 year old male with a complicated medical history , most notably he is eight years s/p lung transplant. Pt reports that ever since his transplant, he has been taking anti-rejection drugs, and I hink they're finally starting to take a toll. Pt reports that over the last two years, he has felt like he is getting weaker and weaker, and my knees are killing me with anything I do. Pt also notes that both his right hip and right shoulder are causing pain most of the time, and he feels weak from the top of my head down to my toes. Pt reports that prior to his transplant, he was told he would need knee replacements, but is now too afraid to have surgery, due to infection and respiratory risk. Pt notes that earlier today, he was unable to lift a 30 pound box at the grocery store, and when he starts walking, my knee hurts by the second step. Prior Treatments and Tests Hx Lung replacement secondary to interstitial lung disease Treatment Goals Patient/Caregiver Goals I would just like to get my arms and legs a little stronger, to make it easier to get around. Prior Functional Status Baseline Function- ADL's Independent Baseline Function- Mobility Independent Current Functional Impairments (Reported) Functional Limitations- ADL's Pt unable to lift a 30# box at the grocery store. Functional Limitations- Mobility/Gait Pt ambulates with a slow gait, small step length. Pt knee pain increases after second step when he begins to walk. Personal Factors Other Personal Factors That May Effect Hx Lung replacement secondary Therapy/Recovery to interstitial lung disease, HTN, DM II, Hx C-diff, GERD, Hx pneumonia, Hx skin cancer PT-OP-C Subjective Start: 01/08/19 17:01 Freq: Status: Active Protocol: Document 01/30/19 10:33 [facility] (Rec: 01/30/19 11:16 LR [id number]) OP-PT Subjective Patient Comments Patient Comments Pt reports he does his exercises when he gets time. PT-OP-D Balance Start: 01/08/19 17:01 Freq: Status: Active Protocol: Document 01/08/19 15:15 DCW (Rec: 01/08/19 17:30 DCW [id number]) OP-PT Balance Assessment Sitting Balance Static Sitting Balance Ability Normal Dynamic Sitting Balance Ability Normal Standing Balance Static Standing Balance Ability Good Dynamic Standing Balance Ability Fair Balance Tests Salazar Balance Test Salazar Balance Test Score 49/56 Salazar Impairment Rating 1 to 19% Impaired (Score 45-55 ) Single Limb Standing Single Limb- Right 8 seconds Single Limb- Left 6 seconds Salazar Balance Assessment Evaluation Sitting to Standing Ability Independent w/out Hands Unsupported Stance Safely- 2 minutes Sitting Unsupported, Feet on Floor Safely- 2 minutes Standing to Sitting Ability Independent, Uncontrolled Transfer Ability Safely, Hand Use Unsupported Stance- Eyes Closed Safely, 10 seconds Unsupported Stance- Eyes Open Independent, 1 minute Reaching Forward Standing Confidently, 10 inches Pick- Up Object From Floor Independent/Safe Look Behind Shoulder - Standing Shifts Weight Well Turning 360 Degrees Turns , < 4 secs Unsupported Stance, Alternating Feet on (I)- 8 Steps in > 20 secs Stair Unsupported Tandem Stance Achieves Tandem Unilateral Leg Stance Lifts Leg/Holds 5-10 secs Total Score Salazar Total Score (out of 56 points) 49 Sampson Fall Scale Copyright Permission Adrián JM, Adrián RM, Faustino SJ. Development of a scale to identify the fall- prone patient. Can J Aging 1989;8;366-7. Saskia Sampson (2009). Preventing patient falls. (2nd ed). [place]: [place]. PT-OP-E Functional Tests Start: 01/08/19 17:01 Freq: Status: Active Protocol: Document 01/08/19 15:15 DCW (Rec: 01/08/19 17:30 DCW [id number]) Functional Tests Dynamic Gait Index (DGI) Score 15/24 DGI Impairment Rating 20 to <40% Impaired (Score 15- 19) PT-OP-G Mobility & Gait Start: 01/08/19 17:01 Freq: Status: Active Protocol: Document 01/08/19 15:15 DCW (Rec: 01/08/19 17:30 DCW [id number]) OP Mobility Evaluation Transfers Sit to Stand Stand->Sit transfers, pt demonstrates rapid, uncontrolled descent into chair Functional Movements Lifting and Carrying Pt unable to lift 30# box OP Gait Assessment Gait Gait Assistance Required: Independent Distance (Feet) 200 Assistive Devices Assistive Device None Gait Deviations General Gait Pattern Decreased Stride Length Factors Limiting Gait Function Factors Limiting Gait Function Decreased Strength Poor Balance Comments Gait Comments Pt ambulates with a slow pallavi, minimal ability to change speed with instruction. Stair Climbing Evaluation Evaluation Level of Assist On Stairs Independent Devices Stair Climbing Assistive Devices Left Railing Right Railing Technique/Endurance Stair Climbing Direction Ascend and Descend Stair Climbing Technique Step to Step Number of Steps Climbed 3 PT-OP-M Strength Start: 01/08/19 17:01 Freq: Status: Active Protocol: Document 01/08/19 15:15 DCW (Rec: 01/08/19 17:30 [facility] [id number]) Shoulder Strength Shoulder Manual Muscle Testing Right Flexion 4- Good- Extension 4+ Good+ Abduction (C5) 4- Good- External Rotation 4- Good- Internal Rotation 4+ Good+ Left Flexion 4 Good Extension 4+ Good+ Abduction (C5) 4 Good External Rotation 4 Good Internal Rotation 4+ Good+ Elbow/Forearm Strength Elbow and Forearm Manual Muscle Testing Right Flexion (C6) 4 Good Extension (C7) 4- Good- Left Flexion (C6) 4 Good Extension (C7) 4- Good- Hip Strength Hip Manual Muscle Testing Right Flexion (L2) 3 Fair Abduction 4 Good Adduction 4- Good- External Rotation 4- Good- Internal Rotation 4- Good- Left Flexion (L2) 3+ Fair+ Abduction 4 Good Adduction 4- Good- External Rotation 4- Good- Internal Rotation 4 Good Knee Strength Knee Manual Muscle Testing Right Flexion (S2) 4- Good- Extension (L3) 4- Good- Left Flexion (S2) 4+ Good+ Extension (L3) 4- Good- PT-OP-Q Treatments Start: 01/08/19 17:01 Freq: Status: Active Protocol: Document 01/30/19 10:33 [facility] (Rec: 01/30/19 11:16 [facility] [id number]) Cardio Equipment Recumbent Stepper (Sci-Fit) Duration (Minutes) 6 Resistance 3 Seat Position 11 Gym Equipment Cable Column (Body Solid) Rows Details Rows Resistance 20# Reps/Time 15x2 Lat Pull Down Details Lat Pull-down Resistance 30# Reps/Time 15x2 Shuttle Recovery Unilateral Squats Resistance 37# R, 25# L Shuttle Recovery Platform Stable Reps/Time x15 ea Bilateral Squats Resistance 75# Shuttle Recovery Platform Stable Reps/Time 15x2 Shuttle Balance Red Details fwd: WBOS & NBOS while throwing ball Comments Fwd staggered stance; side: WBOS & NBOS Neuro Re-Education Treatment Balance Activities carcioca Details grapevine stepping Reps/Duration 20ft B Heel-toe Ambulation Details Heel-toe Amb Equipment rail prm Reps/Duration 2x20ft Comments Fwd/Bkwd PT-OP-T Assessment and Plan Start: 01/08/19 17:01 Freq: Status: Active Protocol: Document 01/30/19 10:33 [facility] (Rec: 01/30/19 11:16 [facility] [id number]) Physical Therapy Assessment Goals Four Impairment Global weakness Card Placer Goal (LTG) UE and LE MMT to grossly 4+/5 LTG Duration 03/10/19 Three Impairment Pt reports increased knee pain when walking Short Term Goal (STG) Pt to tolerate walking for 6 minutes with no reports of increased knee pain STG Duration 02/08/19 Two Impairment Pt at an increased falls risk per 15/24 DGI Short Term Goal (STG) Pt to report no falls over a one month period STG Duration 02/08/19 Card Placer Goal (LTG) Pt to score at least 20/24 on DGI LTG Duration 03/10/19 One Impairment Pt does not have an appropriate home exercise program Short Term Goal (STG) Pt to be independent and compliant with an appropriate HEP STG Duration 02/08/19 Assessment Summary Assessment Pt was able to tolerate increase in balance activities and did well with grapevine with min rail usage. He has significantly dec overall LE strength that requires further progression to help prevent his knees from giving out on him. Physical Therapy Plan Frequency and Duration Frequency of Treatment 2x/Week Duration of Treatment 3 months Plan of Care Start Date 01/08/19 Plan of Care End Date 04/10/19 Next Visit Focus/Plan Next Note Type Treatment Note Next Visit Plan Strengthening, dynamic balance training
--- NOTE | 2019-02-04 16:02 | PT.OTN ---
Current Diagnoses Muscle weakness (generalized) (02/04/19) Lung transplant status (02/04/19) Physical Therapy Treatment Note PT-OP-A Visit Information Start: 01/08/19 17:01 Freq: Status: Active Protocol: Document 02/04/19 15:56 SA (Rec: 02/04/19 16:01 SA [id number]) Out-Patient Physical Therapy Visit Information Visit Information Visit Type Treatment Note Visit Start Time 14:30 Visit Stop Time 15:13 Total Visit Minutes 43 Visit Number 9 Number of GRAIN MANAGER Visits 1 PT-OP-B Current Condition Start: 01/08/19 17:01 Freq: Status: Active Protocol: Document 01/08/19 15:15 DCW (Rec: 01/08/19 17:30 DCW [id number]) Current Condition History of Current Condition Onset Date 8.5 years s/p lung transplant Current Complaints generalized weakness, fatigue, falls History of Current Condition Pt is an 78 year old male with a complicated medical history , most notably he is eight years s/p lung transplant. Pt reports that ever since his transplant, he has been taking anti-rejection drugs, and I hink they're finally starting to take a toll. Pt reports that over the last two years, he has felt like he is getting weaker and weaker, and my knees are killing me with anything I do. Pt also notes that both his right hip and right shoulder are causing pain most of the time, and he feels weak from the top of my head down to my toes. Pt reports that prior to his transplant, he was told he would need knee replacements, but is now too afraid to have surgery, due to infection and respiratory risk. Pt notes that earlier today, he was unable to lift a 30 pound box at the grocery store, and when he starts walking, my knee hurts by the second step. Prior Treatments and Tests Hx Lung replacement secondary to interstitial lung disease Treatment Goals Patient/Caregiver Goals I would just like to get my arms and legs a little stronger, to make it easier to get around. Prior Functional Status Baseline Function- ADL's Independent Baseline Function- Mobility Independent Current Functional Impairments (Reported) Functional Limitations- ADL's Pt unable to lift a 30# box at the grocery store. Functional Limitations- Mobility/Gait Pt ambulates with a slow gait, small step length. Pt knee pain increases after second step when he begins to walk. Personal Factors Other Personal Factors That May Effect Hx Lung replacement secondary Therapy/Recovery to interstitial lung disease, HTN, DM II, Hx C-diff, GERD, Hx pneumonia, Hx skin cancer PT-OP-C Subjective Start: 01/08/19 17:01 Freq: Status: Active Protocol: Document 02/04/19 15:56 SA (Rec: 02/04/19 16:01 SA [email or web address]) OP-PT Subjective Patient Comments Patient Comments Pt has been doing yard work instead of HEP, feeling about the same. PT-OP-D Balance Start: 01/08/19 17:01 Freq: Status: Active Protocol: Document 01/08/19 15:15 DCW (Rec: 01/08/19 17:30 DCW [id number]) OP-PT Balance Assessment Sitting Balance Static Sitting Balance Ability Normal Dynamic Sitting Balance Ability Normal Standing Balance Static Standing Balance Ability Good Dynamic Standing Balance Ability Fair Balance Tests Salazar Balance Test Salazar Balance Test Score 49/56 Salaazr Impairment Rating 1 to 19% Impaired (Score 45-55 ) Single Limb Standing Single Limb- Right 8 seconds Single Limb- Left 6 seconds Salazar Balance Assessment Evaluation Sitting to Standing Ability Independent w/out Hands Unsupported Stance Safely- 2 minutes Sitting Unsupported, Feet on Floor Safely- 2 minutes Standing to Sitting Ability Independent, Uncontrolled Transfer Ability Safely, Hand Use Unsupported Stance- Eyes Closed Safely, 10 seconds Unsupported Stance- Eyes Open Independent, 1 minute Reaching Forward Standing Confidently, 10 inches Pick- Up Object From Floor Independent/Safe Look Behind Shoulder - Standing Shifts Weight Well Turning 360 Degrees Turns , < 4 secs Unsupported Stance, Alternating Feet on (I)- 8 Steps in > 20 secs Stair Unsupported Tandem Stance Achieves Tandem Unilateral Leg Stance Lifts Leg/Holds 5-10 secs Total Score Salazar Total Score (out of 56 points) 49 Sampson Fall Scale Copyright Permission Adrián JM, Adrián RM, Faustino SJ. Development of a scale to identify the fall- prone patient. Can J Aging 1989;8;366-7. Saskia Sampson (2009). Preventing patient falls. (2nd ed). [place]: [place]. PT-OP-E Functional Tests Start: 01/08/19 17:01 Freq: Status: Active Protocol: Document 01/08/19 15:15 DCW (Rec: 01/08/19 17:30 DCW [id number]) Functional Tests Dynamic Gait Index (DGI) Score 1524 DGI Impairment Rating 20 to <40% Impaired (Score 15- 19) PT-OP-G Mobility & Gait Start: 01/08/19 17:01 Freq: Status: Active Protocol: Document 01/08/19 15:15 DCW (Rec: 01/08/19 17:30 DCW [id number]) OP Mobility Evaluation Transfers Sit to Stand Stand->Sit transfers, pt demonstrates rapid, uncontrolled descent into chair Functional Movements Lifting and Carrying Pt unable to lift 30# box OP Gait Assessment Gait Gait Assistance Required: Independent Distance (Feet) 200 Assistive Devices Assistive Device None Gait Deviations General Gait Pattern Decreased Stride Length Factors Limiting Gait Function Factors Limiting Gait Function Decreased Strength Poor Balance Comments Gait Comments Pt ambulates with a slow pallavi, minimal ability to change speed with instruction. Stair Climbing Evaluation Evaluation Level of Assist On Stairs Independent Devices Stair Climbing Assistive Devices Left Railing Right Railing Technique/Endurance Stair Climbing Direction Ascend and Descend Stair Climbing Technique Step to Step Number of Steps Climbed 3 PT-OP-M Strength Start: 01/08/19 17:01 Freq: Status: Active Protocol: Document 01/08/19 15:15 DCW (Rec: 01/08/19 17:30 [facility] [id number]) Shoulder Strength Shoulder Manual Muscle Testing Right Flexion 4- Good- Extension 4+ Good+ Abduction (C5) 4- Good- External Rotation 4- Good- Internal Rotation 4+ Good+ Left Flexion 4 Good Extension 4+ Good+ Abduction (C5) 4 Good External Rotation 4 Good Internal Rotation 4+ Good+ Elbow/Forearm Strength Elbow and Forearm Manual Muscle Testing Right Flexion (C6) 4 Good Extension (C7) 4- Good- Left Flexion (C6) 4 Good Extension (C7) 4- Good- Hip Strength Hip Manual Muscle Testing Right Flexion (L2) 3 Fair Abduction 4 Good Adduction 4- Good- External Rotation 4- Good- Internal Rotation 4- Good- Left Flexion (L2) 3+ Fair+ Abduction 4 Good Adduction 4- Good- External Rotation 4- Good- Internal Rotation 4 Good Knee Strength Knee Manual Muscle Testing Right Flexion (S2) 4- Good- Extension (L3) 4- Good- Left Flexion (S2) 4+ Good+ Extension (L3) 4- Good- PT-OP-Q Treatments Start: 01/08/19 17:01 Freq: Status: Active Protocol: Document 02/04/19 15:56 SA (Rec: 02/04/19 16:01 [email or web address]) Cardio Equipment Upper Body Ergometer (UBE) Duration (Minutes) 5 RPM 60 Seat Position 13 Height 3 Other fwd/bkwd Recumbent Stepper (Sci-Fit) Duration (Minutes) 6 Resistance 3 Seat Position 11 Gym Equipment Cable Column (Body Solid) Rows Details Rows Resistance 20# Reps/Time 15x2 Lat Pull Down Details Lat Pull-down Resistance 30# Reps/Time 15x2 Shuttle Recovery Unilateral Squats Resistance 37# R, 25# L Shuttle Recovery Platform Stable Reps/Time x15 ea Bilateral Squats Resistance 75# Shuttle Recovery Platform Stable Reps/Time 15x2 Shuttle Balance Red Details fwd: WBOS & NBOS while throwing ball Comments Fwd staggered stance; side: WBOS & NBOS Neuro Re-Education Treatment Balance Activities Slow motion marching Surface level Equipment //bars Reps/Duration 4 lengths carcioca Details grapevine stepping Reps/Duration 20ft B SLS Details SLS Surface level Comments at bar Heel-toe Ambulation Details Heel-toe Amb Equipment rail prm Reps/Duration 2x20ft Comments Fwd/Bkwd Tandem Stance Details Tandem Stance Surface Bajwa Foam PT-OP-T Assessment and Plan Start: 01/08/19 17:01 Freq: Status: Active Protocol: Document 02/04/19 15:56 (Rec: 02/04/19 16:01 [id number]) Physical Therapy Assessment Assessment Summary Assessment Pt quite fatigued by end of session, tolerating balance progressions well, admits to not being consistent with HEP. Physical Therapy Plan Next Visit Focus/Plan Next Note Type Treatment Note Next Visit Plan Strengthening, dynamic balance training
--- NOTE | 2019-02-06 12:11 | PT.OTN ---
Current Diagnoses Muscle weakness (generalized) (02/06/19) Lung transplant status (02/06/19) Physical Therapy Treatment Note PT-OP-A Visit Information Start: 01/08/19 17:01 Freq: Status: Active Protocol: Document 02/06/19 12:05 EA (Rec: 02/06/19 12:11 EA [id number]) Out-Patient Physical Therapy Visit Information Visit Information Visit Type Treatment Note Visit Start Time 10:30 Visit Stop Time 11:15 Total Visit Minutes 40 Visit Number 10 Number of FLY WORKER Visits 0 PT-OP-B Current Condition Start: 01/08/19 17:01 Freq: Status: Active Protocol: Document 01/08/19 15:15 DCW (Rec: 01/08/19 17:30 DCW [id number]) Current Condition History of Current Condition Onset Date 8.5 years s/p lung transplant Current Complaints generalized weakness, fatigue, falls History of Current Condition Pt is an 78 year old male with a complicated medical history , most notably he is eight years s/p lung transplant. Pt reports that ever since his transplant, he has been taking anti-rejection drugs, and I hink they're finally starting to take a toll. Pt reports that over the last two years, he has felt like he is getting weaker and weaker, and my knees are killing me with anything I do. Pt also notes that both his right hip and right shoulder are causing pain most of the time, and he feels weak from the top of my head down to my toes. Pt reports that prior to his transplant, he was told he would need knee replacements, but is now too afraid to have surgery, due to infection and respiratory risk. Pt notes that earlier today, he was unable to lift a 30 pound box at the grocery store, and when he starts walking, my knee hurts by the second step. Prior Treatments and Tests Hx Lung replacement secondary to interstitial lung disease Treatment Goals Patient/Caregiver Goals I would just like to get my arms and legs a little stronger, to make it easier to get around. Prior Functional Status Baseline Function- ADL's Independent Baseline Function- Mobility Independent Current Functional Impairments (Reported) Functional Limitations- ADL's Pt unable to lift a 30# box at the grocery store. Functional Limitations- Mobility/Gait Pt ambulates with a slow gait, small step length. Pt knee pain increases after second step when he begins to walk. Personal Factors Other Personal Factors That May Effect Hx Lung replacement secondary Therapy/Recovery to interstitial lung disease, HTN, DM II, Hx C-diff, GERD, Hx pneumonia, Hx skin cancer PT-OP-C Subjective Start: 01/08/19 17:01 Freq: Status: Active Protocol: Document 02/06/19 12:05 EA (Rec: 02/06/19 12:11 EA [id number]) OP-PT Subjective Patient Comments Patient Comments No new complaints as of today. PT-OP-D Balance Start: 01/08/19 17:01 Freq: Status: Active Protocol: Document 01/08/19 15:15 DCW (Rec: 01/08/19 17:30 DCW [id number]) OP-PT Balance Assessment Sitting Balance Static Sitting Balance Ability Normal Dynamic Sitting Balance Ability Normal Standing Balance Static Standing Balance Ability Good Dynamic Standing Balance Ability Fair Balance Tests Salazar Balance Test Salazar Balance Test Score 49/56 Salazar Impairment Rating 1 to 19% Impaired (Score 45-55 ) Single Limb Standing Single Limb- Right 8 seconds Single Limb- Left 6 seconds Salazar Balance Assessment Evaluation Sitting to Standing Ability Independent w/out Hands Unsupported Stance Safely- 2 minutes Sitting Unsupported, Feet on Floor Safely- 2 minutes Standing to Sitting Ability Independent, Uncontrolled Transfer Ability Safely, Hand Use Unsupported Stance- Eyes Closed Safely, 10 seconds Unsupported Stance- Eyes Open Independent, 1 minute Reaching Forward Standing Confidently, 10 inches Pick- Up Object From Floor Independent/Safe Look Behind Shoulder - Standing Shifts Weight Well Turning 360 Degrees Turns , < 4 secs Unsupported Stance, Alternating Feet on (I)- 8 Steps in > 20 secs Stair Unsupported Tandem Stance Achieves Tandem Unilateral Leg Stance Lifts Leg/Holds 5-10 secs Total Score Salazar Total Score (out of 56 points) 49 Sampson Fall Scale Copyright Permission Adrián JM, Adrián RM, Faustino SJ. Development of a scale to identify the fall- prone patient. Can J Aging 1989;8;366-7. Saskia Sampson (2009). Preventing patient falls. (2nd ed). [place]: [place]. PT-OP-E Functional Tests Start: 01/08/19 17:01 Freq: Status: Active Protocol: Document 01/08/19 15:15 DCW (Rec: 01/08/19 17:30 DCW [id number]) Functional Tests Dynamic Gait Index (DGI) Score DGI Impairment Rating 20 to <40% Impaired (Score 15- 19) PT-OP-G Mobility & Gait Start: 01/08/19 17:01 Freq: Status: Active Protocol: Document 01/08/19 15:15 DCW (Rec: 01/08/19 17:30 DCW [id number]) OP Mobility Evaluation Transfers Sit to Stand Stand->Sit transfers, pt demonstrates rapid, uncontrolled descent into chair Functional Movements Lifting and Carrying Pt unable to lift 30# box OP Gait Assessment Gait Gait Assistance Required: Independent Distance (Feet) 200 Assistive Devices Assistive Device None Gait Deviations General Gait Pattern Decreased Stride Length Factors Limiting Gait Function Factors Limiting Gait Function Decreased Strength Poor Balance Comments Gait Comments Pt ambulates with a slow pallavi, minimal ability to change speed with instruction. Stair Climbing Evaluation Evaluation Level of Assist On Stairs Independent Devices Stair Climbing Assistive Devices Left Railing Right Railing Technique/Endurance Stair Climbing Direction Ascend and Descend Stair Climbing Technique Step to Step Number of Steps Climbed 3 PT-OP-M Strength Start: 01/08/19 17:01 Freq: Status: Active Protocol: Document 01/08/19 15:15 DCW (Rec: 01/08/19 17:30 [facility] [id number]) Shoulder Strength Shoulder Manual Muscle Testing Right Flexion 4- Good- Extension 4+ Good+ Abduction (C5) 4- Good- External Rotation 4- Good- Internal Rotation 4+ Good+ Left Flexion 4 Good Extension 4+ Good+ Abduction (C5) 4 Good External Rotation 4 Good Internal Rotation 4+ Good+ Elbow/Forearm Strength Elbow and Forearm Manual Muscle Testing Right Flexion (C6) 4 Good Extension (C7) 4- Good- Left Flexion (C6) 4 Good Extension (C7) 4- Good- Hip Strength Hip Manual Muscle Testing Right Flexion (L2) 3 Fair Abduction 4 Good Adduction 4- Good- External Rotation 4- Good- Internal Rotation 4- Good- Left Flexion (L2) 3+ Fair+ Abduction 4 Good Adduction 4- Good- External Rotation 4- Good- Internal Rotation 4 Good Knee Strength Knee Manual Muscle Testing Right Flexion (S2) 4- Good- Extension (L3) 4- Good- Left Flexion (S2) 4+ Good+ Extension (L3) 4- Good- PT-OP-Q Treatments Start: 01/08/19 17:01 Freq: Status: Active Protocol: Document 02/06/19 12:05 EA (Rec: 02/06/19 12:11 EA [id number]) Cardio Equipment Recumbent Stepper (Sci-Fit) Duration (Minutes) 6 Resistance 3 Seat Position 11 Gym Equipment Cable Column (Body Solid) Rows Details Rows Resistance 20-30# Reps/Time 15x2 Lat Pull Down Details Lat Pull-down Resistance 30# Reps/Time 15x2 Shuttle Recovery Unilateral Squats Resistance 37# R, 25# L Shuttle Recovery Platform Stable Reps/Time x15 ea Bilateral Squats Resistance 75-100# Shuttle Recovery Platform Stable Reps/Time 15x2 Shuttle Balance Red Details fwd: WBOS & NBOS while throwing ball Comments Fwd staggered stance; side: WBOS & NBOS Sport Cord 1 Exercise Details fwd/bwd/swd Reps/Duration x 4 laps each Neuro Re-Education Treatment Balance Activities carcioca Details grapevine stepping Reps/Duration 20ft B SLS Details SLS Surface level Comments at bar Tandem Stance Details Tandem Stance Surface Bajwa Foam PT-OP-T Assessment and Plan Start: 01/08/19 17:01 Freq: Status: Active Protocol: Document 02/06/19 12:05 BEVERLY (Rec: 02/06/19 12:11 EA [id number]) Physical Therapy Assessment Assessment Summary Assessment Tolerated treatment well. Physical Therapy Plan Next Visit Focus/Plan Next Note Type Treatment Note Next Visit Plan Strengthening, dynamic balance training
--- NOTE | 2019-02-11 12:21 | PT.OTN ---
Current Diagnoses Muscle weakness (generalized) (02/11/19) Lung transplant status (02/11/19) Physical Therapy Treatment Note PT-OP-A Visit Information Start: 01/08/19 17:01 Freq: Status: Active Protocol: Document 02/11/19 09:00 HH (Rec: 02/11/19 12:21 HH [email or web address]) Out-Patient Physical Therapy Visit Information Visit Information Visit Type Treatment Note Visit Start Time 09:00 Visit Stop Time 09:45 Total Visit Minutes 45 Visit Number 11 Number of MACHINE TOOL MECHANIC Visits 0 PT-OP-B Current Condition Start: 01/08/19 17:01 Freq: Status: Active Protocol: Document 01/08/19 15:15 DCW (Rec: 01/08/19 17:30 DCW [id number]) Current Condition History of Current Condition Onset Date 8.5 years s/p lung transplant Current Complaints generalized weakness, fatigue, falls History of Current Condition Pt is an 78 year old male with a complicated medical history , most notably he is eight years s/p lung transplant. Pt reports that ever since his transplant, he has been taking anti-rejection drugs, and I hink they're finally starting to take a toll. Pt reports that over the last two years, he has felt like he is getting weaker and weaker, and my knees are killing me with anything I do. Pt also notes that both his right hip and right shoulder are causing pain most of the time, and he feels weak from the top of my head down to my toes. Pt reports that prior to his transplant, he was told he would need knee replacements, but is now too afraid to have surgery, due to infection and respiratory risk. Pt notes that earlier today, he was unable to lift a 30 pound box at the grocery store, and when he starts walking, my knee hurts by the second step. Prior Treatments and Tests Hx Lung replacement secondary to interstitial lung disease Treatment Goals Patient/Caregiver Goals I would just like to get my arms and legs a little stronger, to make it easier to get around. Prior Functional Status Baseline Function- ADL's Independent Baseline Function- Mobility Independent Current Functional Impairments (Reported) Functional Limitations- ADL's Pt unable to lift a 30# box at the grocery store. Functional Limitations- Mobility/Gait Pt ambulates with a slow gait, small step length. Pt knee pain increases after second step when he begins to walk. Personal Factors Other Personal Factors That May Effect Hx Lung replacement secondary Therapy/Recovery to interstitial lung disease, HTN, DM II, Hx C-diff, GERD, Hx pneumonia, Hx skin cancer PT-OP-C Subjective Start: 01/08/19 17:01 Freq: Status: Active Protocol: Document 02/11/19 09:00 HH (Rec: 02/11/19 12:21 HH [email or web address]) OP-PT Subjective Patient Comments Patient Comments still have achy and pain often but my activity tolerance has increased progressively. Patient Reported Progress Improving PT-OP-D Balance Start: 01/08/19 17:01 Freq: Status: Active Protocol: Document 01/08/19 15:15 DCW (Rec: 01/08/19 17:30 DCW [id number]) OP-PT Balance Assessment Sitting Balance Static Sitting Balance Ability Normal Dynamic Sitting Balance Ability Normal Standing Balance Static Standing Balance Ability Good Dynamic Standing Balance Ability Fair Balance Tests Salazar Balance Test Salazar Balance Test Score 49/56 Salazar Impairment Rating 1 to 19% Impaired (Score 45-55 ) Single Limb Standing Single Limb- Right 8 seconds Single Limb- Left 6 seconds Salazar Balance Assessment Evaluation Sitting to Standing Ability Independent w/out Hands Unsupported Stance Safely- 2 minutes Sitting Unsupported, Feet on Floor Safely- 2 minutes Standing to Sitting Ability Independent, Uncontrolled Transfer Ability Safely, Hand Use Unsupported Stance- Eyes Closed Safely, 10 seconds Unsupported Stance- Eyes Open Independent, 1 minute Reaching Forward Standing Confidently, 10 inches Pick- Up Object From Floor Independent/Safe Look Behind Shoulder - Standing Shifts Weight Well Turning 360 Degrees Turns , < 4 secs Unsupported Stance, Alternating Feet on (I)- 8 Steps in > 20 secs Stair Unsupported Tandem Stance Achieves Tandem Unilateral Leg Stance Lifts Leg/Holds 5-10 secs Total Score Salazar Total Score (out of 56 points) 49 Sampson Fall Scale Copyright Permission Adrián JM, Adrián RM, Faustino SJ. Development of a scale to identify the fall- prone patient. Can J Aging 1989;8;366-7. Saskia Sampson (2009). Preventing patient falls. (2nd ed). [place]: [place]. PT-OP-E Functional Tests Start: 01/08/19 17:01 Freq: Status: Active Protocol: Document 01/08/19 15:15 DCW (Rec: 01/08/19 17:30 DCW [id number]) Functional Tests Dynamic Gait Index (DGI) Score 1524 DGI Impairment Rating 20 to <40% Impaired (Score 15- 19) PT-OP-G Mobility & Gait Start: 01/08/19 17:01 Freq: Status: Active Protocol: Document 01/08/19 15:15 DCW (Rec: 01/08/19 17:30 DCW [id number]) OP Mobility Evaluation Transfers Sit to Stand Stand->Sit transfers, pt demonstrates rapid, uncontrolled descent into chair Functional Movements Lifting and Carrying Pt unable to lift 30# box OP Gait Assessment Gait Gait Assistance Required: Independent Distance (Feet) 200 Assistive Devices Assistive Device None Gait Deviations General Gait Pattern Decreased Stride Length Factors Limiting Gait Function Factors Limiting Gait Function Decreased Strength Poor Balance Comments Gait Comments Pt ambulates with a slow pallavi, minimal ability to change speed with instruction. Stair Climbing Evaluation Evaluation Level of Assist On Stairs Independent Devices Stair Climbing Assistive Devices Left Railing Right Railing Technique/Endurance Stair Climbing Direction Ascend and Descend Stair Climbing Technique Step to Step Number of Steps Climbed 3 PT-OP-M Strength Start: 01/08/19 17:01 Freq: Status: Active Protocol: Document 01/08/19 15:15 DCW (Rec: 01/08/19 17:30 [facility] [id number]) Shoulder Strength Shoulder Manual Muscle Testing Right Flexion 4- Good- Extension 4+ Good+ Abduction (C5) 4- Good- External Rotation 4- Good- Internal Rotation 4+ Good+ Left Flexion 4 Good Extension 4+ Good+ Abduction (C5) 4 Good External Rotation 4 Good Internal Rotation 4+ Good+ Elbow/Forearm Strength Elbow and Forearm Manual Muscle Testing Right Flexion (C6) 4 Good Extension (C7) 4- Good- Left Flexion (C6) 4 Good Extension (C7) 4- Good- Hip Strength Hip Manual Muscle Testing Right Flexion (L2) 3 Fair Abduction 4 Good Adduction 4- Good- External Rotation 4- Good- Internal Rotation 4- Good- Left Flexion (L2) 3+ Fair+ Abduction 4 Good Adduction 4- Good- External Rotation 4- Good- Internal Rotation 4 Good Knee Strength Knee Manual Muscle Testing Right Flexion (S2) 4- Good- Extension (L3) 4- Good- Left Flexion (S2) 4+ Good+ Extension (L3) 4- Good- PT-OP-Q Treatments Start: 01/08/19 17:01 Freq: Status: Active Protocol: Document 02/11/19 09:00 (Rec: 02/11/19 12:21 [email or web address]) Cardio Equipment Recumbent Stepper (Sci-Fit) Duration (Minutes) 6 Resistance 3 Seat Position 11 Gym Equipment Shuttle Recovery Unilateral Squats Resistance 45# R, 35# L Shuttle Recovery Platform Stable Reps/Time x15 ea Bilateral Squats Resistance 125# Shuttle Recovery Platform Stable Reps/Time 10x3 Neuro Re-Education Treatment Balance Activities side steps hurdles Details high knee slow walk Equipment //bar Reps/Duration 8 trips hurdles Details high knee slow walk Equipment //bar Reps/Duration 8 trips Comments with green foam in between Slow motion marching Surface level Equipment //bars Reps/Duration 4 lengths Comments without UE support SLS Details SLS Surface level Comments at bar Heel-toe Ambulation Details Heel-toe Amb Equipment rail prm Reps/Duration 2x20ft Comments Fwd/Bkwd Tandem Stance Details Tandem Stance Surface Bajwa Foam PT-OP-T Assessment and Plan Start: 01/08/19 17:01 Freq: Status: Active Protocol: Document 02/11/19 09:00 (Rec: 02/11/19 12:21 [email or web address]) Physical Therapy Assessment Assessment Summary Assessment Pt tolerated tx very well with improved strength and single leg balance. Denies significant fatigue at the end of session. Physical Therapy Plan Next Visit Focus/Plan Next Note Type Treatment Note Next Visit Plan Strengthening, dynamic balance training
--- NOTE | 2019-02-13 12:44 | PT.OTN ---
Current Diagnoses Muscle weakness (generalized) (02/13/19) Lung transplant status (02/13/19) Physical Therapy Treatment Note PT-OP-A Visit Information Start: 01/08/19 17:01 Freq: Status: Active Protocol: Document 02/13/19 12:00 DCW (Rec: 02/13/19 12:44 DCW [id number]) Out-Patient Physical Therapy Visit Information Visit Information Visit Type Treatment Note Visit Start Time 12:00 Visit Stop Time 12:45 Total Visit Minutes 45 Visit Number 12 Number of HEALTH CARE ANALYST Visits 0 Evaluation Information Evaluation Date 01/08/19 PT-OP-B Current Condition Start: 01/08/19 17:01 Freq: Status: Active Protocol: Document 01/08/19 15:15 DCW (Rec: 01/08/19 17:30 DCW [id number]) Current Condition History of Current Condition Onset Date 8.5 years s/p lung transplant Current Complaints generalized weakness, fatigue, falls History of Current Condition Pt is an 78 year old male with a complicated medical history , most notably he is eight years s/p lung transplant. Pt reports that ever since his transplant, he has been taking anti-rejection drugs, and I hink they're finally starting to take a toll. Pt reports that over the last two years, he has felt like he is getting weaker and weaker, and my knees are killing me with anything I do. Pt also notes that both his right hip and right shoulder are causing pain most of the time, and he feels weak from the top of my head down to my toes. Pt reports that prior to his transplant, he was told he would need knee replacements, but is now too afraid to have surgery, due to infection and respiratory risk. Pt notes that earlier today, he was unable to lift a 30 pound box at the grocery store, and when he starts walking, my knee hurts by the second step. Prior Treatments and Tests Hx Lung replacement secondary to interstitial lung disease Treatment Goals Patient/Caregiver Goals I would just like to get my arms and legs a little stronger, to make it easier to get around. Prior Functional Status Baseline Function- ADL's Independent Baseline Function- Mobility Independent Current Functional Impairments (Reported) Functional Limitations- ADL's Pt unable to lift a 30# box at the grocery store. Functional Limitations- Mobility/Gait Pt ambulates with a slow gait, small step length. Pt knee pain increases after second step when he begins to walk. Personal Factors Other Personal Factors That May Effect Hx Lung replacement secondary Therapy/Recovery to interstitial lung disease, HTN, DM II, Hx C-diff, GERD, Hx pneumonia, Hx skin cancer PT-OP-C Subjective Start: 01/08/19 17:01 Freq: Status: Active Protocol: Document 02/13/19 12:00 DCW (Rec: 02/13/19 12:44 DCW [id number]) OP-PT Subjective Patient Comments Patient Comments I don't know if anything has changed. Every joint in my body still aches, but I don't think that's the fault of the exercise. PT-OP-D Balance Start: 01/08/19 17:01 Freq: Status: Active Protocol: Document 01/08/19 15:15 DCW (Rec: 01/08/19 17:30 DCW [id number]) OP-PT Balance Assessment Sitting Balance Static Sitting Balance Ability Normal Dynamic Sitting Balance Ability Normal Standing Balance Static Standing Balance Ability Good Dynamic Standing Balance Ability Fair Balance Tests Salazar Balance Test Salazar Balance Test Score 49/56 Salazar Impairment Rating 1 to 19% Impaired (Score 45-55 ) Single Limb Standing Single Limb- Right 8 seconds Single Limb- Left 6 seconds Salazar Balance Assessment Evaluation Sitting to Standing Ability Independent w/out Hands Unsupported Stance Safely- 2 minutes Sitting Unsupported, Feet on Floor Safely- 2 minutes Standing to Sitting Ability Independent, Uncontrolled Transfer Ability Safely, Hand Use Unsupported Stance- Eyes Closed Safely, 10 seconds Unsupported Stance- Eyes Open Independent, 1 minute Reaching Forward Standing Confidently, 10 inches Pick- Up Object From Floor Independent/Safe Look Behind Shoulder - Standing Shifts Weight Well Turning 360 Degrees Turns , < 4 secs Unsupported Stance, Alternating Feet on (I)- 8 Steps in > 20 secs Stair Unsupported Tandem Stance Achieves Tandem Unilateral Leg Stance Lifts Leg/Holds 5-10 secs Total Score Salazar Total Score (out of 56 points) 49 Sampson Fall Scale Copyright Permission Adrián MENDOZA, Adrián RM, Faustino SJ. Development of a scale to identify the fall- prone patient. Can J Aging 1989;8;366-7. Saskia Sampson (2009). Preventing patient falls. (2nd ed). [place]: [place]. PT-OP-E Functional Tests Start: 01/08/19 17:01 Freq: Status: Active Protocol: Document 01/08/19 15:15 DCW (Rec: 01/08/19 17:30 DCW [id number]) Functional Tests Dynamic Gait Index (DGI) Score 15/24 DGI Impairment Rating 20 to <40% Impaired (Score 15- 19) PT-OP-G Mobility & Gait Start: 01/08/19 17:01 Freq: Status: Active Protocol: Document 01/08/19 15:15 DCW (Rec: 01/08/19 17:30 DCW [id number]) OP Mobility Evaluation Transfers Sit to Stand Stand->Sit transfers, pt demonstrates rapid, uncontrolled descent into chair Functional Movements Lifting and Carrying Pt unable to lift 30# box OP Gait Assessment Gait Gait Assistance Required: Independent Distance (Feet) 200 Assistive Devices Assistive Device None Gait Deviations General Gait Pattern Decreased Stride Length Factors Limiting Gait Function Factors Limiting Gait Function Decreased Strength Poor Balance Comments Gait Comments Pt ambulates with a slow pallavi, minimal ability to change speed with instruction. Stair Climbing Evaluation Evaluation Level of Assist On Stairs Independent Devices Stair Climbing Assistive Devices Left Railing Right Railing Technique/Endurance Stair Climbing Direction Ascend and Descend Stair Climbing Technique Step to Step Number of Steps Climbed 3 PT-OP-M Strength Start: 01/08/19 17:01 Freq: Status: Active Protocol: Document 01/08/19 15:15 DCW (Rec: 01/08/19 17:30 DCW [id number]) Shoulder Strength Shoulder Manual Muscle Testing Right Flexion 4- Good- Extension 4+ Good+ Abduction (C5) 4- Good- External Rotation 4- Good- Internal Rotation 4+ Good+ Left Flexion 4 Good Extension 4+ Good+ Abduction (C5) 4 Good External Rotation 4 Good Internal Rotation 4+ Good+ Elbow/Forearm Strength Elbow and Forearm Manual Muscle Testing Right Flexion (C6) 4 Good Extension (C7) 4- Good- Left Flexion (C6) 4 Good Extension (C7) 4- Good- Hip Strength Hip Manual Muscle Testing Right Flexion (L2) 3 Fair Abduction 4 Good Adduction 4- Good- External Rotation 4- Good- Internal Rotation 4- Good- Left Flexion (L2) 3+ Fair+ Abduction 4 Good Adduction 4- Good- External Rotation 4- Good- Internal Rotation 4 Good Knee Strength Knee Manual Muscle Testing Right Flexion (S2) 4- Good- Extension (L3) 4- Good- Left Flexion (S2) 4+ Good+ Extension (L3) 4- Good- PT-OP-Q Treatments Start: 01/08/19 17:01 Freq: Status: Active Protocol: Document 02/13/19 12:00 DCW (Rec: 02/13/19 12:44 DCW [id number]) Cardio Equipment Recumbent Stepper (Sci-Fit) Duration (Minutes) 6 Resistance 4 Seat Position 12 Gym Equipment Cable Column (Body Solid) Rows Details Rows Resistance 20# Reps/Time 15x2 Lat Pull Down Details Lat Pull-down Resistance 30# Reps/Time 15x2 Shuttle Recovery Unilateral Squats Resistance 37# Shuttle Recovery Platform Stable Reps/Time 2x15 ea Bilateral Squats Resistance 100# Shuttle Recovery Platform Stable Reps/Time 2x15 Neuro Re-Education Treatment Balance Activities side steps hurdles Details high knee slow walk Equipment //bar Reps/Duration 8 trips Comments /c foam hurdles Details high knee slow walk Equipment //bar Reps/Duration 8 trips Comments with green foam in between Slow motion marching Surface level Equipment //bars Reps/Duration 4 lengths Comments without UE support Heel-toe Ambulation Details Heel-toe Amb Equipment rail prm Reps/Duration 2x20ft Comments Fwd/Bkwd PT-OP-T Assessment and Plan Start: 01/08/19 17:01 Freq: Status: Active Protocol: Document 02/13/19 12:00 DCW (Rec: 02/13/19 12:44 DCW [id number]) Physical Therapy Assessment Impairments Impairments Activity Tolerance Balance Functional Activities Functional Mobility Gait ROM Strength Transfers Goals Four Impairment Global weakness [place] Machine Feeder Goal (LTG) UE and LE MMT to grossly 4+/5 LTG Duration 03/10/19 Three Impairment Pt reports increased knee pain when walking Short Term Goal (STG) Pt to tolerate walking for 6 minutes with no reports of increased knee pain STG Duration 02/08/19 Two Impairment Pt at an increased falls risk per 15/24 DGI Short Term Goal (STG) Pt to report no falls over a one month period STG Duration 02/08/19 Shelter Goal (LTG) Pt to score at least 20/24 on DGI LTG Duration 7/8/19 One Impairment Pt does not have an appropriate home exercise program Short Term Goal (STG) Pt to be independent and compliant with an appropriate HEP STG Duration 02/08/19 Assessment Summary Assessment Pt doing well today, demonstrating improvement with his balance and strength. Physical Therapy Plan Frequency and Duration Frequency of Treatment 2x/Week Duration of Treatment 3 months Plan of Care Start Date 01/08/19 Plan of Care End Date 04/10/19 Next Visit Focus/Plan Next Note Type Treatment Note Next Visit Plan Strengthening, dynamic balance training
--- NOTE | 2019-02-13 12:44 | PT.OTN ---
Current Diagnoses Muscle weakness (generalized) (02/13/19) Lung transplant status (02/13/19) Physical Therapy Treatment Note PT-OP-A Visit Information Start: 01/08/19 17:01 Freq: Status: Active Protocol: Document 02/13/19 12:00 DCW (Rec: 02/13/19 12:44 DCW [id number]) Out-Patient Physical Therapy Visit Information Visit Information Visit Type Treatment Note Visit Start Time 12:00 Visit Stop Time 12:45 Total Visit Minutes 45 Visit Number 12 Number of AUDIO PRODUCTION MANAGER Visits 0 Evaluation Information Evaluation Date 01/08/19 PT-OP-B Current Condition Start: 01/08/19 17:01 Freq: Status: Active Protocol: Document 01/08/19 15:15 DCW (Rec: 01/08/19 17:30 DCW [id number]) Current Condition History of Current Condition Onset Date 8.5 years s/p lung transplant Current Complaints generalized weakness, fatigue, falls History of Current Condition Pt is an 78 year old male with a complicated medical history , most notably he is eight years s/p lung transplant. Pt reports that ever since his transplant, he has been taking anti-rejection drugs, and I hink they're finally starting to take a toll. Pt reports that over the last two years, he has felt like he is getting weaker and weaker, and my knees are killing me with anything I do. Pt also notes that both his right hip and right shoulder are causing pain most of the time, and he feels weak from the top of my head down to my toes. Pt reports that prior to his transplant, he was told he would need knee replacements, but is now too afraid to have surgery, due to infection and respiratory risk. Pt notes that earlier today, he was unable to lift a 30 pound box at the grocery store, and when he starts walking, my knee hurts by the second step. Prior Treatments and Tests Hx Lung replacement secondary to interstitial lung disease Treatment Goals Patient/Caregiver Goals I would just like to get my arms and legs a little stronger, to make it easier to get around. Prior Functional Status Baseline Function- ADL's Independent Baseline Function- Mobility Independent Current Functional Impairments (Reported) Functional Limitations- ADL's Pt unable to lift a 30# box at the grocery store. Functional Limitations- Mobility/Gait Pt ambulates with a slow gait, small step length. Pt knee pain increases after second step when he begins to walk. Personal Factors Other Personal Factors That May Effect Hx Lung replacement secondary Therapy/Recovery to interstitial lung disease, HTN, DM II, Hx C-diff, GERD, Hx pneumonia, Hx skin cancer PT-OP-C Subjective Start: 01/08/19 17:01 Freq: Status: Active Protocol: Document 02/13/19 12:00 DCW (Rec: 02/13/19 12:44 DCW [id number]) OP-PT Subjective Patient Comments Patient Comments I don't know if anything has changed. Every joint in my body still aches, but I don't think that's the fault of the exercise. PT-OP-D Balance Start: 01/08/19 17:01 Freq: Status: Active Protocol: Document 01/08/19 15:15 DCW (Rec: 01/08/19 17:30 DCW [id number]) OP-PT Balance Assessment Sitting Balance Static Sitting Balance Ability Normal Dynamic Sitting Balance Ability Normal Standing Balance Static Standing Balance Ability Good Dynamic Standing Balance Ability Fair Balance Tests Salazar Balance Test Salazar Balance Test Score 49/56 Salazar Impairment Rating 1 to 19% Impaired (Score 45-55 ) Single Limb Standing Single Limb- Right 8 seconds Single Limb- Left 6 seconds Salazar Balance Assessment Evaluation Sitting to Standing Ability Independent w/out Hands Unsupported Stance Safely- 2 minutes Sitting Unsupported, Feet on Floor Safely- 2 minutes Standing to Sitting Ability Independent, Uncontrolled Transfer Ability Safely, Hand Use Unsupported Stance- Eyes Closed Safely, 10 seconds Unsupported Stance- Eyes Open Independent, 1 minute Reaching Forward Standing Confidently, 10 inches Pick- Up Object From Floor Independent/Safe Look Behind Shoulder - Standing Shifts Weight Well Turning 360 Degrees Turns , < 4 secs Unsupported Stance, Alternating Feet on (I)- 8 Steps in > 20 secs Stair Unsupported Tandem Stance Achieves Tandem Unilateral Leg Stance Lifts Leg/Holds 5-10 secs Total Score Salazar Total Score (out of 56 points) 49 Sampson Fall Scale Copyright Permission Adriná MENDOZA, Adrián RM, Faustino SJ. Development of a scale to identify the fall- prone patient. Can J Aging 1989;8;366-7. Saskia Sampson (2009). Preventing patient falls. (2nd ed). [place]: [place]. PT-OP-E Functional Tests Start: 01/08/19 17:01 Freq: Status: Active Protocol: Document 01/08/19 15:15 DCW (Rec: 01/08/19 17:30 DCW [id number]) Functional Tests Dynamic Gait Index (DGI) Score 15/24 DGI Impairment Rating 20 to <40% Impaired (Score 15- 19) PT-OP-G Mobility & Gait Start: 01/08/19 17:01 Freq: Status: Active Protocol: Document 01/08/19 15:15 DCW (Rec: 01/08/19 17:30 DCW [id number]) OP Mobility Evaluation Transfers Sit to Stand Stand->Sit transfers, pt demonstrates rapid, uncontrolled descent into chair Functional Movements Lifting and Carrying Pt unable to lift 30# box OP Gait Assessment Gait Gait Assistance Required: Independent Distance (Feet) 200 Assistive Devices Assistive Device None Gait Deviations General Gait Pattern Decreased Stride Length Factors Limiting Gait Function Factors Limiting Gait Function Decreased Strength Poor Balance Comments Gait Comments Pt ambulates with a slow pallavi, minimal ability to change speed with instruction. Stair Climbing Evaluation Evaluation Level of Assist On Stairs Independent Devices Stair Climbing Assistive Devices Left Railing Right Railing Technique/Endurance Stair Climbing Direction Ascend and Descend Stair Climbing Technique Step to Step Number of Steps Climbed 3 PT-OP-M Strength Start: 01/08/19 17:01 Freq: Status: Active Protocol: Document 01/08/19 15:15 DCW (Rec: 01/08/19 17:30 DCW [id number]) Shoulder Strength Shoulder Manual Muscle Testing Right Flexion 4- Good- Extension 4+ Good+ Abduction (C5) 4- Good- External Rotation 4- Good- Internal Rotation 4+ Good+ Left Flexion 4 Good Extension 4+ Good+ Abduction (C5) 4 Good External Rotation 4 Good Internal Rotation 4+ Good+ Elbow/Forearm Strength Elbow and Forearm Manual Muscle Testing Right Flexion (C6) 4 Good Extension (C7) 4- Good- Left Flexion (C6) 4 Good Extension (C7) 4- Good- Hip Strength Hip Manual Muscle Testing Right Flexion (L2) 3 Fair Abduction 4 Good Adduction 4- Good- External Rotation 4- Good- Internal Rotation 4- Good- Left Flexion (L2) 3+ Fair+ Abduction 4 Good Adduction 4- Good- External Rotation 4- Good- Internal Rotation 4 Good Knee Strength Knee Manual Muscle Testing Right Flexion (S2) 4- Good- Extension (L3) 4- Good- Left Flexion (S2) 4+ Good+ Extension (L3) 4- Good- PT-OP-Q Treatments Start: 01/08/19 17:01 Freq: Status: Active Protocol: Document 02/13/19 12:00 DCW (Rec: 02/13/19 12:44 DCW [id number]) Cardio Equipment Recumbent Stepper (Sci-Fit) Duration (Minutes) 6 Resistance 4 Seat Position 12 Gym Equipment Cable Column (Body Solid) Rows Details Rows Resistance 20# Reps/Time 15x2 Lat Pull Down Details Lat Pull-down Resistance 30# Reps/Time 15x2 Shuttle Recovery Unilateral Squats Resistance 37# Shuttle Recovery Platform Stable Reps/Time 2x15 ea Bilateral Squats Resistance 100# Shuttle Recovery Platform Stable Reps/Time 2x15 Neuro Re-Education Treatment Balance Activities side steps hurdles Details high knee slow walk Equipment //bar Reps/Duration 8 trips Comments /c foam hurdles Details high knee slow walk Equipment //bar Reps/Duration 8 trips Comments with green foam in between Slow motion marching Surface level Equipment //bars Reps/Duration 4 lengths Comments without UE support Heel-toe Ambulation Details Heel-toe Amb Equipment rail prm Reps/Duration 2x20ft Comments Fwd/Bkwd PT-OP-T Assessment and Plan Start: 01/08/19 17:01 Freq: Status: Active Protocol: Document 02/13/19 12:00 DCW (Rec: 02/13/19 12:44 DCW [id number]) Physical Therapy Assessment Impairments Impairments Activity Tolerance Balance Functional Activities Functional Mobility Gait ROM Strength Transfers Goals Four Impairment Global weakness Mortgage Operations Manager Goal (LTG) UE and LE MMT to grossly 4+/5 LTG Duration 03/10/19 Three Impairment Pt reports increased knee pain when walking Short Term Goal (STG) Pt to tolerate walking for 6 minutes with no reports of increased knee pain STG Duration 02/08/19 Two Impairment Pt at an increased falls risk per 15/24 DGI Short Term Goal (STG) Pt to report no falls over a one month period STG Duration 02/08/19 Senior Living Goal (LTG) Pt to score at least 20/24 on DGI LTG Duration 7/8/19 One Impairment Pt does not have an appropriate home exercise program Short Term Goal (STG) Pt to be independent and compliant with an appropriate HEP STG Duration 02/08/19 Assessment Summary Assessment Pt doing well today, demonstrating improvement with his balance and strength. Physical Therapy Plan Frequency and Duration Frequency of Treatment 2x/Week Duration of Treatment 3 months Plan of Care Start Date 01/08/19 Plan of Care End Date 04/10/19 Next Visit Focus/Plan Next Note Type Treatment Note Next Visit Plan Strengthening, dynamic balance training
--- NOTE | 2019-02-25 11:33 | PT.OTN ---
Current Diagnoses Muscle weakness (generalized) (02/25/19) Lung transplant status (02/25/19) Physical Therapy Treatment Note PT-OP-A Visit Information Start: 01/08/19 17:01 Freq: Status: Active Protocol: Document 02/25/19 11:28 SA (Rec: 02/25/19 11:33 SA [id number]) Out-Patient Physical Therapy Visit Information Visit Information Visit Type Treatment Note Visit Start Time 09:45 Visit Stop Time 10:30 Total Visit Minutes 45 Visit Number 13 Number of INTERSTATE PLANNER Visits 1 PT-OP-B Current Condition Start: 01/08/19 17:01 Freq: Status: Active Protocol: Document 01/08/19 15:15 DCW (Rec: 01/08/19 17:30 DCW [id number]) Current Condition History of Current Condition Onset Date 8.5 years s/p lung transplant Current Complaints generalized weakness, fatigue, falls History of Current Condition Pt is an 78 year old male with a complicated medical history , most notably he is eight years s/p lung transplant. Pt reports that ever since his transplant, he has been taking anti-rejection drugs, and I hink they're finally starting to take a toll. Pt reports that over the last two years, he has felt like he is getting weaker and weaker, and my knees are killing me with anything I do. Pt also notes that both his right hip and right shoulder are causing pain most of the time, and he feels weak from the top of my head down to my toes. Pt reports that prior to his transplant, he was told he would need knee replacements, but is now too afraid to have surgery, due to infection and respiratory risk. Pt notes that earlier today, he was unable to lift a 30 pound box at the grocery store, and when he starts walking, my knee hurts by the second step. Prior Treatments and Tests Hx Lung replacement secondary to interstitial lung disease Treatment Goals Patient/Caregiver Goals I would just like to get my arms and legs a little stronger, to make it easier to get around. Prior Functional Status Baseline Function- ADL's Independent Baseline Function- Mobility Independent Current Functional Impairments (Reported) Functional Limitations- ADL's Pt unable to lift a 30# box at the grocery store. Functional Limitations- Mobility/Gait Pt ambulates with a slow gait, small step length. Pt knee pain increases after second step when he begins to walk. Personal Factors Other Personal Factors That May Effect Hx Lung replacement secondary Therapy/Recovery to interstitial lung disease, HTN, DM II, Hx C-diff, GERD, Hx pneumonia, Hx skin cancer PT-OP-C Subjective Start: 01/08/19 17:01 Freq: Status: Active Protocol: Document 02/25/19 11:28 SA (Rec: 02/25/19 11:33 SA [id number]) OP-PT Subjective Patient Comments Patient Comments Pt reports continued joint pain, states his balance is a little better. [place]. PT-OP-D Balance Start: 01/08/19 17:01 Freq: Status: Active Protocol: Document 01/08/19 15:15 DCW (Rec: 01/08/19 17:30 DCW [id number]) OP-PT Balance Assessment Sitting Balance Static Sitting Balance Ability Normal Dynamic Sitting Balance Ability Normal Standing Balance Static Standing Balance Ability Good Dynamic Standing Balance Ability Fair Balance Tests Salazar Balance Test Salazar Balance Test Score 49/56 Salazar Impairment Rating 1 to 19% Impaired (Score 45-55 ) Single Limb Standing Single Limb- Right 8 seconds Single Limb- Left 6 seconds Salazar Balance Assessment Evaluation Sitting to Standing Ability Independent w/out Hands Unsupported Stance Safely- 2 minutes Sitting Unsupported, Feet on Floor Safely- 2 minutes Standing to Sitting Ability Independent, Uncontrolled Transfer Ability Safely, Hand Use Unsupported Stance- Eyes Closed Safely, 10 seconds Unsupported Stance- Eyes Open Independent, 1 minute Reaching Forward Standing Confidently, 10 inches Pick- Up Object From Floor Independent/Safe Look Behind Shoulder - Standing Shifts Weight Well Turning 360 Degrees Turns , < 4 secs Unsupported Stance, Alternating Feet on (I)- 8 Steps in > 20 secs Stair Unsupported Tandem Stance Achieves Tandem Unilateral Leg Stance Lifts Leg/Holds 5-10 secs Total Score Salazar Total Score (out of 56 points) 49 Sampson Fall Scale Copyright Permission PT-OP-E Functional Tests Start: 01/08/19 17:01 Freq: Status: Active Protocol: Document 01/08/19 15:15 DCW (Rec: 01/08/19 17:30 DCW [id number]) Functional Tests Dynamic Gait Index (DGI) Score 15/24 DGI Impairment Rating 20 to <40% Impaired (Score 15- 19) PT-OP-G Mobility & Gait Start: 01/08/19 17:01 Freq: Status: Active Protocol: Document 01/08/19 15:15 DCW (Rec: 01/08/19 17:30 NJW [id number]) OP Mobility Evaluation Transfers Sit to Stand Stand->Sit transfers, pt demonstrates rapid, uncontrolled descent into chair Functional Movements Lifting and Carrying Pt unable to lift 30# box OP Gait Assessment Gait Gait Assistance Required: Independent Distance (Feet) 200 Assistive Devices Assistive Device None Gait Deviations General Gait Pattern Decreased Stride Length Factors Limiting Gait Function Factors Limiting Gait Function Decreased Strength Poor Balance Comments Gait Comments Pt ambulates with a slow pallavi, minimal ability to change speed with instruction. Stair Climbing Evaluation Evaluation Level of Assist On Stairs Independent Devices Stair Climbing Assistive Devices Left Railing Right Railing Technique/Endurance Stair Climbing Direction Ascend and Descend Stair Climbing Technique Step to Step Number of Steps Climbed 3 PT-OP-M Strength Start: 01/08/19 17:01 Freq: Status: Active Protocol: Document 01/08/19 15:15 DCW (Rec: 01/08/19 17:30 [facility] [id number]) Shoulder Strength Shoulder Manual Muscle Testing Right Flexion 4- Good- Extension 4+ Good+ Abduction (C5) 4- Good- External Rotation 4- Good- Internal Rotation 4+ Good+ Left Flexion 4 Good Extension 4+ Good+ Abduction (C5) 4 Good External Rotation 4 Good Internal Rotation 4+ Good+ Elbow/Forearm Strength Elbow and Forearm Manual Muscle Testing Right Flexion (C6) 4 Good Extension (C7) 4- Good- Left Flexion (C6) 4 Good Extension (C7) 4- Good- Hip Strength Hip Manual Muscle Testing Right Flexion (L2) 3 Fair Abduction 4 Good Adduction 4- Good- External Rotation 4- Good- Internal Rotation 4- Good- Left Flexion (L2) 3+ Fair+ Abduction 4 Good Adduction 4- Good- External Rotation 4- Good- Internal Rotation 4 Good Knee Strength Knee Manual Muscle Testing Right Flexion (S2) 4- Good- Extension (L3) 4- Good- Left Flexion (S2) 4+ Good+ Extension (L3) 4- Good- PT-OP-Q Treatments Start: 01/08/19 17:01 Freq: Status: Active Protocol: Document 02/25/19 11:28 SA (Rec: 02/25/19 11:33 [email or web address]) Cardio Equipment Recumbent Stepper (Sci-Fit) Duration (Minutes) 6 Resistance 5 Seat Position 12 Gym Equipment Cable Column (Body Solid) Rows Details Rows Resistance 20# Reps/Time 15x2 Lat Pull Down Details Lat Pull-down Resistance 30# Reps/Time 15x2 Shuttle Recovery Unilateral Squats Resistance 50# Shuttle Recovery Platform Stable Reps/Time 2x15 ea Bilateral Squats Resistance 112# Shuttle Recovery Platform Stable Reps/Time 2x15 Shuttle Balance Red Details fwd: WBOS & NBOS while throwing ball Reps/Duration 5 min Comments Fwd staggered stance; side: WBOS & NBOS Neuro Re-Education Treatment Balance Activities side steps hurdles Details high knee slow walk Equipment //bar Reps/Duration 8 trips Comments /c foam hurdles Details high knee slow walk Equipment //bar Reps/Duration 8 trips Comments with green foam in between Slow motion marching Surface level Equipment //bars Reps/Duration 4 lengths Comments without UE support carcioca Details grapevine stepping Reps/Duration 20ft B SLS Details SLS Surface green foam Comments at bar Heel-toe Ambulation Details Heel-toe Amb Equipment rail prm Reps/Duration 2x20ft Comments Fwd/Bkwd Tandem Stance Details Tandem Stance Surface blue foam PT-OP-T Assessment and Plan Start: 01/08/19 17:01 Freq: Status: Active Protocol: Document 02/25/19 11:28 (Rec: 02/25/19 11:33 [email or web address]) Physical Therapy Assessment Assessment Summary Assessment Pt making gradual strength and balance gains, most limiting factor remains joint pain. Physical Therapy Plan Next Visit Focus/Plan Next Note Type Treatment Note Next Visit Plan Strengthening, dynamic balance training
--- NOTE | 2019-02-28 11:26 | PT.OTN ---
Current Diagnoses Muscle weakness (generalized) (02/28/19) Lung transplant status (02/28/19) Physical Therapy Treatment Note PT-OP-A Visit Information Start: 01/08/19 17:01 Freq: Status: Active Protocol: Document 02/28/19 11:20 SA (Rec: 02/28/19 11:26 SA [id number]) Out-Patient Physical Therapy Visit Information Visit Information Visit Type Treatment Note Visit Start Time 09:00 Visit Stop Time 09:45 Total Visit Minutes 45 Visit Number 14 Number of HEARSE DRIVER Visits 2 PT-OP-B Current Condition Start: 01/08/19 17:01 Freq: Status: Active Protocol: Document 01/08/19 15:15 DCW (Rec: 01/08/19 17:30 DCW [id number]) Current Condition History of Current Condition Onset Date 8.5 years s/p lung transplant Current Complaints generalized weakness, fatigue, falls History of Current Condition Pt is an 78 year old male with a complicated medical history , most notably he is eight years s/p lung transplant. Pt reports that ever since his transplant, he has been taking anti-rejection drugs, and I hink they're finally starting to take a toll. Pt reports that over the last two years, he has felt like he is getting weaker and weaker, and my knees are killing me with anything I do. Pt also notes that both his right hip and right shoulder are causing pain most of the time, and he feels weak from the top of my head down to my toes. Pt reports that prior to his transplant, he was told he would need knee replacements, but is now too afraid to have surgery, due to infection and respiratory risk. Pt notes that earlier today, he was unable to lift a 30 pound box at the grocery store, and when he starts walking, my knee hurts by the second step. Prior Treatments and Tests Hx Lung replacement secondary to interstitial lung disease Treatment Goals Patient/Caregiver Goals I would just like to get my arms and legs a little stronger, to make it easier to get around. Prior Functional Status Baseline Function- ADL's Independent Baseline Function- Mobility Independent Current Functional Impairments (Reported) Functional Limitations- ADL's Pt unable to lift a 30# box at the grocery store. Functional Limitations- Mobility/Gait Pt ambulates with a slow gait, small step length. Pt knee pain increases after second step when he begins to walk. Personal Factors Other Personal Factors That May Effect Hx Lung replacement secondary Therapy/Recovery to interstitial lung disease, HTN, DM II, Hx C-diff, GERD, Hx pneumonia, Hx skin cancer PT-OP-C Subjective Start: 01/08/19 17:01 Freq: Status: Active Protocol: Document 02/28/19 11:20 SA (Rec: 02/28/19 11:26 SA [id number]) OP-PT Subjective Patient Comments Patient Comments Pt went shrimping yesterday and the day before and feels quite sore and stiff today. PT-OP-D Balance Start: 01/08/19 17:01 Freq: Status: Active Protocol: Document 01/08/19 15:15 DCW (Rec: 01/08/19 17:30 DCW [id number]) OP-PT Balance Assessment Sitting Balance Static Sitting Balance Ability Normal Dynamic Sitting Balance Ability Normal Standing Balance Static Standing Balance Ability Good Dynamic Standing Balance Ability Fair Balance Tests Salazar Balance Test Salazar Balance Test Score 49/56 Salazar Impairment Rating 1 to 19% Impaired (Score 45-55 ) Single Limb Standing Single Limb- Right 8 seconds Single Limb- Left 6 seconds Salazar Balance Assessment Evaluation Sitting to Standing Ability Independent w/out Hands Unsupported Stance Safely- 2 minutes Sitting Unsupported, Feet on Floor Safely- 2 minutes Standing to Sitting Ability Independent, Uncontrolled Transfer Ability Safely, Hand Use Unsupported Stance- Eyes Closed Safely, 10 seconds Unsupported Stance- Eyes Open Independent, 1 minute Reaching Forward Standing Confidently, 10 inches Pick- Up Object From Floor Independent/Safe Look Behind Shoulder - Standing Shifts Weight Well Turning 360 Degrees Turns , < 4 secs Unsupported Stance, Alternating Feet on (I)- 8 Steps in > 20 secs Stair Unsupported Tandem Stance Achieves Tandem Unilateral Leg Stance Lifts Leg/Holds 5-10 secs Total Score Salazar Total Score (out of 56 points) 49 Sampson Fall Scale Copyright Permission PT-OP-E Functional Tests Start: 01/08/19 17:01 Freq: Status: Active Protocol: Document 01/08/19 15:15 DCW (Rec: 01/08/19 17:30 DCW [id number]) Functional Tests Dynamic Gait Index (DGI) Score 15/24 DGI Impairment Rating 20 to <40% Impaired (Score 15- 19) PT-OP-G Mobility & Gait Start: 01/08/19 17:01 Freq: Status: Active Protocol: Document 01/08/19 15:15 DCW (Rec: 01/08/19 17:30 [facility] [id number]) OP Mobility Evaluation Transfers Sit to Stand Stand->Sit transfers, pt demonstrates rapid, uncontrolled descent into chair Functional Movements Lifting and Carrying Pt unable to lift 30# box OP Gait Assessment Gait Gait Assistance Required: Independent Distance (Feet) 200 Assistive Devices Assistive Device None Gait Deviations General Gait Pattern Decreased Stride Length Factors Limiting Gait Function Factors Limiting Gait Function Decreased Strength Poor Balance Comments Gait Comments Pt ambulates with a slow pallavi, minimal ability to change speed with instruction. Stair Climbing Evaluation Evaluation Level of Assist On Stairs Independent Devices Stair Climbing Assistive Devices Left Railing Right Railing Technique/Endurance Stair Climbing Direction Ascend and Descend Stair Climbing Technique Step to Step Number of Steps Climbed 3 PT-OP-M Strength Start: 01/08/19 17:01 Freq: Status: Active Protocol: Document 01/08/19 15:15 DCW (Rec: 01/08/19 17:30 [facility] [id number]) Shoulder Strength Shoulder Manual Muscle Testing Right Flexion 4- Good- Extension 4+ Good+ Abduction (C5) 4- Good- External Rotation 4- Good- Internal Rotation 4+ Good+ Left Flexion 4 Good Extension 4+ Good+ Abduction (C5) 4 Good External Rotation 4 Good Internal Rotation 4+ Good+ Elbow/Forearm Strength Elbow and Forearm Manual Muscle Testing Right Flexion (C6) 4 Good Extension (C7) 4- Good- Left Flexion (C6) 4 Good Extension (C7) 4- Good- Hip Strength Hip Manual Muscle Testing Right Flexion (L2) 3 Fair Abduction 4 Good Adduction 4- Good- External Rotation 4- Good- Internal Rotation 4- Good- Left Flexion (L2) 3+ Fair+ Abduction 4 Good Adduction 4- Good- External Rotation 4- Good- Internal Rotation 4 Good Knee Strength Knee Manual Muscle Testing Right Flexion (S2) 4- Good- Extension (L3) 4- Good- Left Flexion (S2) 4+ Good+ Extension (L3) 4- Good- PT-OP-Q Treatments Start: 01/08/19 17:01 Freq: Status: Active Protocol: Document 02/28/19 11:20 SA (Rec: 02/28/19 11:26 SA [id number]) Cardio Equipment Recumbent Bicycle Duration (Minutes) 7 Resistance 7 Gym Equipment Cable Column (Body Solid) Rows Details Rows Resistance 20# Reps/Time 15x2 Lat Pull Down Details Lat Pull-down Resistance 30# Reps/Time 15x2 Shuttle Recovery Unilateral Squats Resistance 50# Shuttle Recovery Platform Stable Reps/Time 2x15 ea Bilateral Squats Resistance 112# Shuttle Recovery Platform Stable Reps/Time 2x15 Shuttle Balance Red Details fwd: WBOS & NBOS while throwing ball Reps/Duration 6 min Comments Fwd staggered stance; side: WBOS & NBOS, ball toss Sport Cord 1 Exercise Details fwd/bwd/swd Reps/Duration x 4 laps each Therapeutic Exercises Standing Exercises hip EXT Side bilateral Equipment Used 3# TB Reps/Minutes 15 x each Comments postural cues Step-ups Standing Exercise Name Step-ups Resistance 8->4 step Comments c/o knee pain /c 8 step Neuro Re-Education Treatment Balance Activities side steps hurdles Details high knee slow walk Equipment //bar Reps/Duration 8 trips Comments /c foam Slow motion marching Surface level Equipment //bars Reps/Duration 4 lengths Comments without UE support carcioca Details grapevine stepping Reps/Duration 20ft B SLS Details SLS Surface green foam Comments at bar PT-OP-T Assessment and Plan Start: 01/08/19 17:01 Freq: Status: Active Protocol: Document 02/28/19 11:20 (Rec: 02/28/19 11:26 [email or web address]) Physical Therapy Assessment Assessment Summary Assessment Pt with continued joint pain, uses ice and CBD oil at home for pain relief, wants to continue exercising and boating/fishing activity. Physical Therapy Plan Next Visit Focus/Plan Next Note Type Treatment Note Next Visit Plan Strengthening, dynamic balance training
--- NOTE | 2019-03-04 12:43 | PT.OTN ---
Current Diagnoses Muscle weakness (generalized) (03/04/19) Lung transplant status (03/04/19) Physical Therapy Treatment Note PT-OP-A Visit Information Start: 01/08/19 17:01 Freq: Status: Active Protocol: Document 03/04/19 12:00 DCW (Rec: 03/04/19 12:43 DCW [id number]) Out-Patient Physical Therapy Visit Information Visit Information Visit Type Treatment Note Visit Start Time 12:00 Visit Stop Time 12:45 Total Visit Minutes 45 Visit Number 12 Number of BOTTOM CAGER Visits 0 Evaluation Information Evaluation Date 01/08/19 PT-OP-B Current Condition Start: 01/08/19 17:01 Freq: Status: Active Protocol: Document 01/08/19 15:15 DCW (Rec: 01/08/19 17:30 DCW [id number]) Current Condition History of Current Condition Onset Date 8.5 years s/p lung transplant Current Complaints generalized weakness, fatigue, falls History of Current Condition Pt is an 78 year old male with a complicated medical history , most notably he is eight years s/p lung transplant. Pt reports that ever since his transplant, he has been taking anti-rejection drugs, and I hink they're finally starting to take a toll. Pt reports that over the last two years, he has felt like he is getting weaker and weaker, and my knees are killing me with anything I do. Pt also notes that both his right hip and right shoulder are causing pain most of the time, and he feels weak from the top of my head down to my toes. Pt reports that prior to his transplant, he was told he would need knee replacements, but is now too afraid to have surgery, due to infection and respiratory risk. Pt notes that earlier today, he was unable to lift a 30 pound box at the grocery store, and when he starts walking, my knee hurts by the second step. Prior Treatments and Tests Hx Lung replacement secondary to interstitial lung disease Treatment Goals Patient/Caregiver Goals I would just like to get my arms and legs a little stronger, to make it easier to get around. Prior Functional Status Baseline Function- ADL's Independent Baseline Function- Mobility Independent Current Functional Impairments (Reported) Functional Limitations- ADL's Pt unable to lift a 30# box at the grocery store. Functional Limitations- Mobility/Gait Pt ambulates with a slow gait, small step length. Pt knee pain increases after second step when he begins to walk. Personal Factors Other Personal Factors That May Effect Hx Lung replacement secondary Therapy/Recovery to interstitial lung disease, HTN, DM II, Hx C-diff, GERD, Hx pneumonia, Hx skin cancer PT-OP-C Subjective Start: 01/08/19 17:01 Freq: Status: Active Protocol: Document 03/04/19 12:00 DCW (Rec: 03/04/19 12:43 DCW [id number]) OP-PT Subjective Patient Comments Patient Comments Pt reports [place] over the weekend lest him fairly tired, but that's pretty expected. Reports he feels like he has made good progress with PT so far, but theres still room for improvement. PT-OP-D Balance Start: 01/08/19 17:01 Freq: Status: Active Protocol: Document 01/08/19 15:15 DCW (Rec: 01/08/19 17:30 DCW [id number]) OP-PT Balance Assessment Sitting Balance Static Sitting Balance Ability Normal Dynamic Sitting Balance Ability Normal Standing Balance Static Standing Balance Ability Good Dynamic Standing Balance Ability Fair Balance Tests Salazar Balance Test Salazar Balance Test Score 49/56 Salazar Impairment Rating 1 to 19% Impaired (Score 45-55 ) Single Limb Standing Single Limb- Right 8 seconds Single Limb- Left 6 seconds Salazar Balance Assessment Evaluation Sitting to Standing Ability Independent w/out Hands Unsupported Stance Safely- 2 minutes Sitting Unsupported, Feet on Floor Safely- 2 minutes Standing to Sitting Ability Independent, Uncontrolled Transfer Ability Safely, Hand Use Unsupported Stance- Eyes Closed Safely, 10 seconds Unsupported Stance- Eyes Open Independent, 1 minute Reaching Forward Standing Confidently, 10 inches Pick- Up Object From Floor Independent/Safe Look Behind Shoulder - Standing Shifts Weight Well Turning 360 Degrees Turns , < 4 secs Unsupported Stance, Alternating Feet on (I)- 8 Steps in > 20 secs Stair Unsupported Tandem Stance Achieves Tandem Unilateral Leg Stance Lifts Leg/Holds 5-10 secs Total Score Salazar Total Score (out of 56 points) 49 Sampson Fall Scale Copyright Permission PT-OP-E Functional Tests Start: 01/08/19 17:01 Freq: Status: Active Protocol: Document 01/08/19 15:15 DCW (Rec: 01/08/19 17:30 DCW [id number]) Functional Tests Dynamic Gait Index (DGI) Score DGI Impairment Rating 20 to <40% Impaired (Score 15- 19) PT-OP-G Mobility & Gait Start: 01/08/19 17:01 Freq: Status: Active Protocol: Document 01/08/19 15:15 DCW (Rec: 01/08/19 17:30 DCW [id number]) OP Mobility Evaluation Transfers Sit to Stand Stand->Sit transfers, pt demonstrates rapid, uncontrolled descent into chair Functional Movements Lifting and Carrying Pt unable to lift 30# box OP Gait Assessment Gait Gait Assistance Required: Independent Distance (Feet) 200 Assistive Devices Assistive Device None Gait Deviations General Gait Pattern Decreased Stride Length Factors Limiting Gait Function Factors Limiting Gait Function Decreased Strength Poor Balance Comments Gait Comments Pt ambulates with a slow pallavi, minimal ability to change speed with instruction. Stair Climbing Evaluation Evaluation Level of Assist On Stairs Independent Devices Stair Climbing Assistive Devices Left Railing Right Railing Technique/Endurance Stair Climbing Direction Ascend and Descend Stair Climbing Technique Step to Step Number of Steps Climbed 3 PT-OP-M Strength Start: 01/08/19 17:01 Freq: Status: Active Protocol: Document 01/08/19 15:15 DCW (Rec: 01/08/19 17:30 FLW [id number]) Shoulder Strength Shoulder Manual Muscle Testing Right Flexion 4- Good- Extension 4+ Good+ Abduction (C5) 4- Good- External Rotation 4- Good- Internal Rotation 4+ Good+ Left Flexion 4 Good Extension 4+ Good+ Abduction (C5) 4 Good External Rotation 4 Good Internal Rotation 4+ Good+ Elbow/Forearm Strength Elbow and Forearm Manual Muscle Testing Right Flexion (C6) 4 Good Extension (C7) 4- Good- Left Flexion (C6) 4 Good Extension (C7) 4- Good- Hip Strength Hip Manual Muscle Testing Right Flexion (L2) 3 Fair Abduction 4 Good Adduction 4- Good- External Rotation 4- Good- Internal Rotation 4- Good- Left Flexion (L2) 3+ Fair+ Abduction 4 Good Adduction 4- Good- External Rotation 4- Good- Internal Rotation 4 Good Knee Strength Knee Manual Muscle Testing Right Flexion (S2) 4- Good- Extension (L3) 4- Good- Left Flexion (S2) 4+ Good+ Extension (L3) 4- Good- PT-OP-Q Treatments Start: 01/08/19 17:01 Freq: Status: Active Protocol: Document 03/04/19 12:00 DCW (Rec: 03/04/19 12:43 DCW [id number]) Cardio Equipment Recumbent Elliptical (Biodex) Duration (Minutes) 5 Resistance 5 Seat Position 10 Gym Equipment Cable Column (Body Solid) Rows Details Rows Resistance 20# Reps/Time 15x2 Lat Pull Down Details Lat Pull-down Resistance 30# Reps/Time 15x2 Shuttle Recovery Unilateral Squats Resistance 50# Shuttle Recovery Platform Stable Reps/Time 2x15 ea Bilateral Squats Resistance 112# Shuttle Recovery Platform Stable Reps/Time 2x15 Shuttle Balance Red Details fwd: WBOS & NBOS while throwing ball Reps/Duration 10 min Comments Fwd staggered stance; side: WBOS & NBOS, ball toss Therapeutic Exercises Other Exercises Resisted Ambulation Other Exercise Name Fwd, Bkwd, and Side-stepping Resistance Green Equipment Used T-band Neuro Re-Education Treatment Balance Activities hurdles Details high knee slow walk Equipment //bar Reps/Duration 8 trips Comments with foam in between PT-OP-T Assessment and Plan Start: 01/08/19 17:01 Freq: Status: Active Protocol: Document 03/04/19 12:00 DCW (Rec: 03/04/19 12:43 DCW [id number]) Physical Therapy Assessment Impairments Impairments Activity Tolerance Balance Functional Activities Functional Mobility Gait ROM Strength Transfers Goals Four Impairment Global weakness [employer] Goal (LTG) UE and LE MMT to grossly 4+/5 LTG Duration 03/10/19 Three Impairment Pt reports increased knee pain when walking Short Term Goal (STG) Pt to tolerate walking for 6 minutes with no reports of increased knee pain STG Duration 02/08/19 Two Impairment Pt at an increased falls risk per 15/24 DGI Short Term Goal (STG) Pt to report no falls over a one month period STG Duration 02/08/19 [employer] Goal (LTG) Pt to score at least 20/24 on DGI LTG Duration 03/10/19 One Impairment Pt does not have an appropriate home exercise program Short Term Goal (STG) Pt to be independent and compliant with an appropriate HEP STG Duration 02/08/19 Assessment Summary Assessment Pt performed well today, did not have any difficulty with strengthening exercises. Physical Therapy Plan Frequency and Duration Frequency of Treatment 2x/Week Duration of Treatment 3 months Plan of Care Start Date 01/08/19 Plan of Care End Date 04/10/19 Next Visit Focus/Plan Next Note Type Treatment Note Next Visit Plan Strengthening, dynamic balance training
--- NOTE | 2019-03-11 12:09 | PT.OTN ---
Current Diagnoses Muscle weakness (generalized) (03/11/19) Lung transplant status (03/11/19) Physical Therapy Treatment Note PT-OP-A Visit Information Start: 01/08/19 17:01 Freq: Status: Active Protocol: Document 03/11/19 12:04 SA (Rec: 03/11/19 12:09 SA [id number]) Out-Patient Physical Therapy Visit Information Visit Information Visit Type Treatment Note Visit Start Time 07:30 Visit Stop Time 08:15 Total Visit Minutes 45 Visit Number 13 Number of SENIOR PROPERTY MANAGER Visits 1 PT-OP-B Current Condition Start: 01/08/19 17:01 Freq: Status: Active Protocol: Document 01/08/19 15:15 DCW (Rec: 01/08/19 17:30 DCW [id number]) Current Condition History of Current Condition Onset Date 8.5 years s/p lung transplant Current Complaints generalized weakness, fatigue, falls History of Current Condition Pt is an 78 year old male with a complicated medical history , most notably he is eight years s/p lung transplant. Pt reports that ever since his transplant, he has been taking anti-rejection drugs, and I hink they're finally starting to take a toll. Pt reports that over the last two years, he has felt like he is getting weaker and weaker, and my knees are killing me with anything I do. Pt also notes that both his right hip and right shoulder are causing pain most of the time, and he feels weak from the top of my head down to my toes. Pt reports that prior to his transplant, he was told he would need knee replacements, but is now too afraid to have surgery, due to infection and respiratory risk. Pt notes that earlier today, he was unable to lift a 30 pound box at the grocery store, and when he starts walking, my knee hurts by the second step. Prior Treatments and Tests Hx Lung replacement secondary to interstitial lung disease Treatment Goals Patient/Caregiver Goals I would just like to get my arms and legs a little stronger, to make it easier to get around. Prior Functional Status Baseline Function- ADL's Independent Baseline Function- Mobility Independent Current Functional Impairments (Reported) Functional Limitations- ADL's Pt unable to lift a 30# box at the grocery store. Functional Limitations- Mobility/Gait Pt ambulates with a slow gait, small step length. Pt knee pain increases after second step when he begins to walk. Personal Factors Other Personal Factors That May Effect Hx Lung replacement secondary Therapy/Recovery to interstitial lung disease, HTN, DM II, Hx C-diff, GERD, Hx pneumonia, Hx skin cancer PT-OP-C Subjective Start: 01/08/19 17:01 Freq: Status: Active Protocol: Document 03/11/19 12:04 SA (Rec: 03/11/19 12:09 SA [email or web address]) OP-PT Subjective Patient Comments Patient Comments Pt feeling stiff and achy this morning but not any more than usual. PT-OP-D Balance Start: 01/08/19 17:01 Freq: Status: Active Protocol: Document 01/08/19 15:15 DCW (Rec: 01/08/19 17:30 DCW [id number]) OP-PT Balance Assessment Sitting Balance Static Sitting Balance Ability Normal Dynamic Sitting Balance Ability Normal Standing Balance Static Standing Balance Ability Good Dynamic Standing Balance Ability Fair Balance Tests Salazar Balance Test Salazar Balance Test Score 49/56 Salazar Impairment Rating 1 to 19% Impaired (Score 45-55 ) Single Limb Standing Single Limb- Right 8 seconds Single Limb- Left 6 seconds Salazar Balance Assessment Evaluation Sitting to Standing Ability Independent w/out Hands Unsupported Stance Safely- 2 minutes Sitting Unsupported, Feet on Floor Safely- 2 minutes Standing to Sitting Ability Independent, Uncontrolled Transfer Ability Safely, Hand Use Unsupported Stance- Eyes Closed Safely, 10 seconds Unsupported Stance- Eyes Open Independent, 1 minute Reaching Forward Standing Confidently, 10 inches Pick- Up Object From Floor Independent/Safe Look Behind Shoulder - Standing Shifts Weight Well Turning 360 Degrees Turns , < 4 secs Unsupported Stance, Alternating Feet on (I)- 8 Steps in > 20 secs Stair Unsupported Tandem Stance Achieves Tandem Unilateral Leg Stance Lifts Leg/Holds 5-10 secs Total Score Salazar Total Score (out of 56 points) 49 Sampson Fall Scale Copyright Permission PT-OP-E Functional Tests Start: 01/08/19 17:01 Freq: Status: Active Protocol: Document 01/08/19 15:15 DCW (Rec: 01/08/19 17:30 DCW [id number]) Functional Tests Dynamic Gait Index (DGI) Score 15/24 DGI Impairment Rating 20 to <40% Impaired (Score 15- 19) PT-OP-G Mobility & Gait Start: 01/08/19 17:01 Freq: Status: Active Protocol: Document 01/08/19 15:15 DCW (Rec: 01/08/19 17:30 DCW [id number]) OP Mobility Evaluation Transfers Sit to Stand Stand->Sit transfers, pt demonstrates rapid, uncontrolled descent into chair Functional Movements Lifting and Carrying Pt unable to lift 30# box OP Gait Assessment Gait Gait Assistance Required: Independent Distance (Feet) 200 Assistive Devices Assistive Device None Gait Deviations General Gait Pattern Decreased Stride Length Factors Limiting Gait Function Factors Limiting Gait Function Decreased Strength Poor Balance Comments Gait Comments Pt ambulates with a slow pallavi, minimal ability to change speed with instruction. Stair Climbing Evaluation Evaluation Level of Assist On Stairs Independent Devices Stair Climbing Assistive Devices Left Railing Right Railing Technique/Endurance Stair Climbing Direction Ascend and Descend Stair Climbing Technique Step to Step Number of Steps Climbed 3 PT-OP-M Strength Start: 01/08/19 17:01 Freq: Status: Active Protocol: Document 01/08/19 15:15 DCW (Rec: 01/08/19 17:30 DCW [id number]) Shoulder Strength Shoulder Manual Muscle Testing Right Flexion 4- Good- Extension 4+ Good+ Abduction (C5) 4- Good- External Rotation 4- Good- Internal Rotation 4+ Good+ Left Flexion 4 Good Extension 4+ Good+ Abduction (C5) 4 Good External Rotation 4 Good Internal Rotation 4+ Good+ Elbow/Forearm Strength Elbow and Forearm Manual Muscle Testing Right Flexion (C6) 4 Good Extension (C7) 4- Good- Left Flexion (C6) 4 Good Extension (C7) 4- Good- Hip Strength Hip Manual Muscle Testing Right Flexion (L2) 3 Fair Abduction 4 Good Adduction 4- Good- External Rotation 4- Good- Internal Rotation 4- Good- Left Flexion (L2) 3+ Fair+ Abduction 4 Good Adduction 4- Good- External Rotation 4- Good- Internal Rotation 4 Good Knee Strength Knee Manual Muscle Testing Right Flexion (S2) 4- Good- Extension (L3) 4- Good- Left Flexion (S2) 4+ Good+ Extension (L3) 4- Good- PT-OP-Q Treatments Start: 01/08/19 17:01 Freq: Status: Active Protocol: Document 03/11/19 12:04 SA (Rec: 03/11/19 12:09 SA [email or web address]) Cardio Equipment Recumbent Elliptical (Biodex) Duration (Minutes) 6 Resistance 5 Seat Position 10 Gym Equipment Cable Column (Body Solid) Rows Details Rows Resistance 20# Reps/Time 15x2 Lat Pull Down Details Lat Pull-down Resistance 30# Reps/Time 15x2 Shuttle Recovery Unilateral Squats Resistance 50# Shuttle Recovery Platform Stable Reps/Time 2x15 ea Bilateral Squats Resistance 112# Shuttle Recovery Platform Stable Reps/Time 2x15 Shuttle Balance Red Details fwd: WBOS & NBOS while throwing ball Reps/Duration 10 min Comments Fwd staggered stance; side: WBOS & NBOS, ball toss Therapeutic Exercises Standing Exercises hip EXT Side bilateral Equipment Used 3# TB Reps/Minutes 15 x each Comments postural cues Step-ups Standing Exercise Name Step-ups Resistance 8->4 step Comments c/o knee pain /c 8 step Neuro Re-Education Treatment Balance Activities side steps hurdles Details high knee slow walk Equipment //bar Reps/Duration 8 trips Comments /c foam hurdles Details high knee slow walk Equipment //bar Reps/Duration 8 trips Comments with foam in between Slow motion marching Surface level Equipment //bars Reps/Duration 4 lengths Comments without UE support carcioca Details grapevine stepping Reps/Duration 20ft B SLS Details SLS Surface green foam Comments at bar Heel-toe Ambulation Details Heel-toe Amb Equipment rail prm Reps/Duration 2x20ft Comments Fwd/Bkwd PT-OP-T Assessment and Plan Start: 01/08/19 17:01 Freq: Status: Active Protocol: Document 03/11/19 12:04 (Rec: 03/11/19 12:09 [email or web address]) Physical Therapy Assessment Assessment Summary Assessment Pt tolerated ther ex and balance challenges well with improving movement as session progressed, continued difficulty with tandem stance/ walking. Physical Therapy Plan Next Visit Focus/Plan Next Note Type Treatment Note Next Visit Plan Progress strengthening, dynamic balance as tolerated.
--- NOTE | 2019-03-13 10:09 | PT.OTN ---
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5 years s/p lung transplant Current Complaints generalized weakness, fatigue, falls History of Current Condition Pt is an 78 year old male with a complicated medical history , most notably he is eight years s/p lung transplant. Pt reports that ever since his transplant, he has been taking anti-rejection drugs, and I hink they're finally starting to take a toll. Pt reports that over the last two years, he has felt like he is getting weaker and weaker, and my knees are killing me with anything I do. Pt also notes that both his right hip and right shoulder are causing pain most of the time, and he feels weak from the top of my head down to my toes. Pt reports that prior to his transplant, he was told he would need knee replacements, but is now too afraid to have surgery, due to infection and respiratory risk. Pt notes that earlier today, he was unable to lift a 30 pound box at the grocery store, and when he starts walking, my knee hurts by the second step. Prior Treatments and Tests Hx Lung replacement secondary to interstitial lung disease Treatment Goals Patient/Caregiver Goals I would just like to get my arms and legs a little stronger, to make it easier to get around. Prior Functional Status Baseline Function- ADL's Independent Baseline Function- Mobility Independent Current Functional Impairments (Reported) Functional Limitations- ADL's Pt unable to lift a 30# box at the grocery store. Functional Limitations- Mobility/Gait Pt ambulates with a slow gait, small step length. Pt knee pain increases after second step when he begins to walk. Personal Factors Other Personal Factors That May Effect Hx Lung replacement secondary Therapy/Recovery to interstitial lung disease, HTN, DM II, Hx C-diff, GERD, Hx pneumonia, Hx skin cancer PT-OP-C Subjective Start: 01/08/19 17:01 Freq: Status: Active Protocol: Document 03/13/19 07:30 AMB (Rec: 03/13/19 07:41 AMB [id number]) OP-PT Subjective Patient Comments Patient Comments Pt is going crabbing later today. States that he was unable to get up on a chair in the middle of the night to replace the smoke alarm battery PT-OP-D Balance Start: 01/08/19 17:01 Freq: Status: Active Protocol: Document 01/08/19 15:15 DCW (Rec: 01/08/19 17:30 DCW [id number]) OP-PT Balance Assessment Sitting Balance Static Sitting Balance Ability Normal Dynamic Sitting Balance Ability Normal Standing Balance Static Standing Balance Ability Good Dynamic Standing Balance Ability Fair Balance Tests Salazar Balance Test Salazar Balance Test Score 49/56 Salazar Impairment Rating 1 to 19% Impaired (Score 45-55 ) Single Limb Standing Single Limb- Right 8 seconds Single Limb- Left 6 seconds Salazar Balance Assessment Evaluation Sitting to Standing Ability Independent w/out Hands Unsupported Stance Safely- 2 minutes Sitting Unsupported, Feet on Floor Safely- 2 minutes Standing to Sitting Ability Independent, Uncontrolled Transfer Ability Safely, Hand Use Unsupported Stance- Eyes Closed Safely, 10 seconds Unsupported Stance- Eyes Open Independent, 1 minute Reaching Forward Standing Confidently, 10 inches Pick- Up Object From Floor Independent/Safe Look Behind Shoulder - Standing Shifts Weight Well Turning 360 Degrees Turns , < 4 secs Unsupported Stance, Alternating Feet on (I)- 8 Steps in > 20 secs Stair Unsupported Tandem Stance Achieves Tandem Unilateral Leg Stance Lifts Leg/Holds 5-10 secs Total Score Salazar Total Score (out of 56 points) 49 Sampson Fall Scale Copyright Permission PT-OP-E Functional Tests Start: 01/08/19 17:01 Freq: Status: Active Protocol: Document 01/08/19 15:15 DCW (Rec: 01/08/19 17:30 DCW [id number]) Functional Tests Dynamic Gait Index (DGI) Score 15/24 DGI Impairment Rating 20 to <40% Impaired (Score 15- 19) PT-OP-G Mobility & Gait Start: 01/08/19 17:01 Freq: Status: Active Protocol: Document 01/08/19 15:15 DCW (Rec: 01/08/19 17:30 DCW [id number]) OP Mobility Evaluation Transfers Sit to Stand Stand->Sit transfers, pt demonstrates rapid, uncontrolled descent into chair Functional Movements Lifting and Carrying Pt unable to lift 30# box OP Gait Assessment Gait Gait Assistance Required: Independent Distance (Feet) 200 Assistive Devices Assistive Device None Gait Deviations General Gait Pattern Decreased Stride Length Factors Limiting Gait Function Factors Limiting Gait Function Decreased Strength Poor Balance Comments Gait Comments Pt ambulates with a slow pallavi, minimal ability to change speed with instruction. Stair Climbing Evaluation Evaluation Level of Assist On Stairs Independent Devices Stair Climbing Assistive Devices Left Railing Right Railing Technique/Endurance Stair Climbing Direction Ascend and Descend Stair Climbing Technique Step to Step Number of Steps Climbed 3 PT-OP-M Strength Start: 01/08/19 17:01 Freq: Status: Active Protocol: Document 01/08/19 15:15 DCW (Rec: 01/08/19 17:30 DCW [id number]) Shoulder Strength Shoulder Manual Muscle Testing Right Flexion 4- Good- Extension 4+ Good+ Abduction (C5) 4- Good- External Rotation 4- Good- Internal Rotation 4+ Good+ Left Flexion 4 Good Extension 4+ Good+ Abduction (C5) 4 Good External Rotation 4 Good Internal Rotation 4+ Good+ Elbow/Forearm Strength Elbow and Forearm Manual Muscle Testing Right Flexion (C6) 4 Good Extension (C7) 4- Good- Left Flexion (C6) 4 Good Extension (C7) 4- Good- Hip Strength Hip Manual Muscle Testing Right Flexion (L2) 3 Fair Abduction 4 Good Adduction 4- Good- External Rotation 4- Good- Internal Rotation 4- Good- Left Flexion (L2) 3+ Fair+ Abduction 4 Good Adduction 4- Good- External Rotation 4- Good- Internal Rotation 4 Good Knee Strength Knee Manual Muscle Testing Right Flexion (S2) 4- Good- Extension (L3) 4- Good- Left Flexion (S2) 4+ Good+ Extension (L3) 4- Good- PT-OP-Q Treatments Start: 01/08/19 17:01 Freq: Status: Active Protocol: Document 03/13/19 07:30 AMB (Rec: 07/11/19 10:05 AMB [email or web address]) Cardio Equipment Recumbent Elliptical (Biodex) Duration (Minutes) 6 Resistance 5 Seat Position 10 Gym Equipment Cable Column (Body Solid) Rows Details Rows Resistance 20# Reps/Time 15x2 Lat Pull Down Details Lat Pull-down Resistance 30# Reps/Time 15x2 Shuttle Balance Red Details fwd: WBOS & NBOS while throwing ball Reps/Duration 10 min Comments Fwd staggered stance; side: WBOS & NBOS,head turns Therapeutic Exercises Standing Exercises 1 Standing Exercise Name wall squats Reps/Minutes 5 hold x 5 Step-ups Standing Exercise Name Step-ups Resistance 6 step Comments pain on L Neuro Re-Education Treatment Balance Activities Heel-toe Ambulation Details Heel-toe Amb Equipment rail prm Reps/Duration 2x20ft Comments Fwd/Bkwd Tandem Stance Details Tandem Stance Surface blue foam PT-OP-T Assessment and Plan Start: 01/08/19 17:01 Freq: Status: Active Protocol: Document 03/13/19 07:30 AMB (Rec: 03/13/19 10:05 AMB [email or web address]) Physical Therapy Assessment Assessment Summary Assessment Pt was asking about ways to strengthen his legs at home due to his difficulty getting up on chair to change smoke alarm. However knee pain continues to limit his ability to tolerate even gentle squat , step ups, etc. Physical Therapy Plan Next Visit Focus/Plan Next Note Type Treatment Note Next Visit Plan consider band HEP for LE strengthening
--- NOTE | 2019-03-17 10:04 | PT.OTN ---
Current Diagnoses Muscle weakness (generalized) (03/17/19) Lung transplant status (03/17/19) Physical Therapy Treatment Note PT-OP-A Visit Information Start: 01/08/19 17:01 Freq: Status: Active Protocol: Document 03/17/19 09:08 AMB (Rec: 03/17/19 09:12 AMB [id number]) Out-Patient Physical Therapy Visit Information Visit Information Visit Type Treatment Note Visit Start Time 07:30 Visit Stop Time 08:15 Total Visit Minutes 45 Visit Number 15 Number of PRODUCTION MACHINE TENDER Visits 0 PT-OP-B Current Condition Start: 01/08/19 17:01 Freq: Status: Active Protocol: Document 01/08/19 15:15 DCW (Rec: 01/08/19 17:30 DCW [id number]) Current Condition History of Current Condition Onset Date 8.5 years s/p lung transplant Current Complaints generalized weakness, fatigue, falls History of Current Condition Pt is an 78 year old male with a complicated medical history , most notably he is eight years s/p lung transplant. Pt reports that ever since his transplant, he has been taking anti-rejection drugs, and I hink they're finally starting to take a toll. Pt reports that over the last two years, he has felt like he is getting weaker and weaker, and my knees are killing me with anything I do. Pt also notes that both his right hip and right shoulder are causing pain most of the time, and he feels weak from the top of my head down to my toes. Pt reports that prior to his transplant, he was told he would need knee replacements, but is now too afraid to have surgery, due to infection and respiratory risk. Pt notes that earlier today, he was unable to lift a 30 pound box at the grocery store, and when he starts walking, my knee hurts by the second step. Prior Treatments and Tests Hx Lung replacement secondary to interstitial lung disease Treatment Goals Patient/Caregiver Goals I would just like to get my arms and legs a little stronger, to make it easier to get around. Prior Functional Status Baseline Function- ADL's Independent Baseline Function- Mobility Independent Current Functional Impairments (Reported) Functional Limitations- ADL's Pt unable to lift a 30# box at the grocery store. Functional Limitations- Mobility/Gait Pt ambulates with a slow gait, small step length. Pt knee pain increases after second step when he begins to walk. Personal Factors Other Personal Factors That May Effect Hx Lung replacement secondary Therapy/Recovery to interstitial lung disease, HTN, DM II, Hx C-diff, GERD, Hx pneumonia, Hx skin cancer PT-OP-C Subjective Start: 01/08/19 17:01 Freq: Status: Active Protocol: Document 03/17/19 09:08 AMB (Rec: 03/17/19 09:12 AMB [id number]) OP-PT Subjective Patient Comments Patient Comments Pt states knees were sore after salmon fishing yesterday . PT-OP-D Balance Start: 01/08/19 17:01 Freq: Status: Active Protocol: Document 01/08/19 15:15 DCW (Rec: 01/08/19 17:30 DCW [id number]) OP-PT Balance Assessment Sitting Balance Static Sitting Balance Ability Normal Dynamic Sitting Balance Ability Normal Standing Balance Static Standing Balance Ability Good Dynamic Standing Balance Ability Fair Balance Tests Salazar Balance Test Salazar Balance Test Score 49/56 Salazar Impairment Rating 1 to 19% Impaired (Score 45-55 ) Single Limb Standing Single Limb- Right 8 seconds Single Limb- Left 6 seconds Salazar Balance Assessment Evaluation Sitting to Standing Ability Independent w/out Hands Unsupported Stance Safely- 2 minutes Sitting Unsupported, Feet on Floor Safely- 2 minutes Standing to Sitting Ability Independent, Uncontrolled Transfer Ability Safely, Hand Use Unsupported Stance- Eyes Closed Safely, 10 seconds Unsupported Stance- Eyes Open Independent, 1 minute Reaching Forward Standing Confidently, 10 inches Pick- Up Object From Floor Independent/Safe Look Behind Shoulder - Standing Shifts Weight Well Turning 360 Degrees Turns , < 4 secs Unsupported Stance, Alternating Feet on (I)- 8 Steps in > 20 secs Stair Unsupported Tandem Stance Achieves Tandem Unilateral Leg Stance Lifts Leg/Holds 5-10 secs Total Score Salazar Total Score (out of 56 points) 49 Sampson Fall Scale Copyright Permission PT-OP-E Functional Tests Start: 01/08/19 17:01 Freq: Status: Active Protocol: Document 01/08/19 15:15 DCW (Rec: 01/08/19 17:30 DCW [id number]) Functional Tests Dynamic Gait Index (DGI) Score 15/24 DGI Impairment Rating 20 to <40% Impaired (Score 15- 19) PT-OP-G Mobility & Gait Start: 01/08/19 17:01 Freq: Status: Active Protocol: Document 01/08/19 15:15 DCW (Rec: 01/08/19 17:30 DCW [id number]) OP Mobility Evaluation Transfers Sit to Stand Stand->Sit transfers, pt demonstrates rapid, uncontrolled descent into chair Functional Movements Lifting and Carrying Pt unable to lift 30# box OP Gait Assessment Gait Gait Assistance Required: Independent Distance (Feet) 200 Assistive Devices Assistive Device None Gait Deviations General Gait Pattern Decreased Stride Length Factors Limiting Gait Function Factors Limiting Gait Function Decreased Strength Poor Balance Comments Gait Comments Pt ambulates with a slow pallavi, minimal ability to change speed with instruction. Stair Climbing Evaluation Evaluation Level of Assist On Stairs Independent Devices Stair Climbing Assistive Devices Left Railing Right Railing Technique/Endurance Stair Climbing Direction Ascend and Descend Stair Climbing Technique Step to Step Number of Steps Climbed 3 PT-OP-M Strength Start: 01/08/19 17:01 Freq: Status: Active Protocol: Document 01/08/19 15:15 DCW (Rec: 01/08/19 17:30 DCW [id number]) Shoulder Strength Shoulder Manual Muscle Testing Right Flexion 4- Good- Extension 4+ Good+ Abduction (C5) 4- Good- External Rotation 4- Good- Internal Rotation 4+ Good+ Left Flexion 4 Good Extension 4+ Good+ Abduction (C5) 4 Good External Rotation 4 Good Internal Rotation 4+ Good+ Elbow/Forearm Strength Elbow and Forearm Manual Muscle Testing Right Flexion (C6) 4 Good Extension (C7) 4- Good- Left Flexion (C6) 4 Good Extension (C7) 4- Good- Hip Strength Hip Manual Muscle Testing Right Flexion (L2) 3 Fair Abduction 4 Good Adduction 4- Good- External Rotation 4- Good- Internal Rotation 4- Good- Left Flexion (L2) 3+ Fair+ Abduction 4 Good Adduction 4- Good- External Rotation 4- Good- Internal Rotation 4 Good Knee Strength Knee Manual Muscle Testing Right Flexion (S2) 4- Good- Extension (L3) 4- Good- Left Flexion (S2) 4+ Good+ Extension (L3) 4- Good- PT-OP-Q Treatments Start: 01/08/19 17:01 Freq: Status: Active Protocol: Document 03/17/19 09:00 AMB (Rec: 03/17/19 09:17 AMB [id number]) Cardio Equipment Recumbent Elliptical (Biodex) Duration (Minutes) 6 Resistance 5 Seat Position 10 Gym Equipment Cable Column (Body Solid) Rows Details Rows Resistance 30# Reps/Time 10x3 Lat Pull Down Details Lat Pull-down Resistance 30# Reps/Time 15x2 Shuttle Recovery Unilateral Squats Resistance 50# Shuttle Recovery Platform Stable Reps/Time 2x15 ea Bilateral Squats Resistance 112# Shuttle Recovery Platform Stable Reps/Time 2x15 Shuttle Balance Red Details fwd: WBOS & NBOS while throwing ball Reps/Duration 10 min Comments Fwd staggered stance; side: WBOS & NBOS,head turns Therapeutic Exercises Standing Exercises hip EXT Side bilateral Equipment Used 3# TB Reps/Minutes 15 x each Comments postural cues PT-OP-T Assessment and Plan Start: 01/08/19 17:01 Freq: Status: Active Protocol: Document 03/17/19 09:00 AMB (Rec: 03/17/19 09:51 AMB [id number]) Physical Therapy Assessment Assessment Summary Assessment Knee pain continues to limit strengthening progression. Physical Therapy Plan Next Visit Focus/Plan Next Note Type Treatment Note Next Visit Plan Pt is doing some back exercises at home, could expand with written handout
--- NOTE | 2019-03-21 14:19 | PT.OTN ---
Current Diagnoses Muscle weakness (generalized) (03/21/19) Lung transplant status (03/21/19) Physical Therapy Treatment Note PT-OP-A Visit Information Start: 01/08/19 17:01 Freq: Status: Active Protocol: Document 03/21/19 07:30 AMB (Rec: 03/21/19 07:42 AMB [id number]) Out-Patient Physical Therapy Visit Information Visit Information Visit Type Treatment Note Visit Start Time 07:30 Visit Stop Time 08:15 Total Visit Minutes 45 Visit Number 16 Number of SPLITTING MACHINE FEEDER Visits 0 PT-OP-B Current Condition Start: 01/08/19 17:01 Freq: Status: Active Protocol: Document 01/08/19 15:15 DCW (Rec: 01/08/19 17:30 DCW [id number]) Current Condition History of Current Condition Onset Date 8.5 years s/p lung transplant Current Complaints generalized weakness, fatigue, falls History of Current Condition Pt is an 78 year old male with a complicated medical history , most notably he is eight years s/p lung transplant. Pt reports that ever since his transplant, he has been taking anti-rejection drugs, and I hink they're finally starting to take a toll. Pt reports that over the last two years, he has felt like he is getting weaker and weaker, and my knees are killing me with anything I do. Pt also notes that both his right hip and right shoulder are causing pain most of the time, and he feels weak from the top of my head down to my toes. Pt reports that prior to his transplant, he was told he would need knee replacements, but is now too afraid to have surgery, due to infection and respiratory risk. Pt notes that earlier today, he was unable to lift a 30 pound box at the grocery store, and when he starts walking, my knee hurts by the second step. Prior Treatments and Tests Hx Lung replacement secondary to interstitial lung disease Treatment Goals Patient/Caregiver Goals I would just like to get my arms and legs a little stronger, to make it easier to get around. Prior Functional Status Baseline Function- ADL's Independent Baseline Function- Mobility Independent Current Functional Impairments (Reported) Functional Limitations- ADL's Pt unable to lift a 30# box at the grocery store. Functional Limitations- Mobility/Gait Pt ambulates with a slow gait, small step length. Pt knee pain increases after second step when he begins to walk. Personal Factors Other Personal Factors That May Effect Hx Lung replacement secondary Therapy/Recovery to interstitial lung disease, HTN, DM II, Hx C-diff, GERD, Hx pneumonia, Hx skin cancer PT-OP-C Subjective Start: 01/08/19 17:01 Freq: Status: Active Protocol: Document 03/21/19 07:30 AMB (Rec: 03/21/19 07:42 AMB [id number]) OP-PT Subjective Patient Comments Patient Comments Pt states he has not gone fishing in a while PT-OP-D Balance Start: 01/08/19 17:01 Freq: Status: Active Protocol: Document 01/08/19 15:15 DCW (Rec: 01/08/19 17:30 DCW [id number]) OP-PT Balance Assessment Sitting Balance Static Sitting Balance Ability Normal Dynamic Sitting Balance Ability Normal Standing Balance Static Standing Balance Ability Good Dynamic Standing Balance Ability Fair Balance Tests Salazar Balance Test Salazar Balance Test Score 49/56 Salazar Impairment Rating 1 to 19% Impaired (Score 45-55 ) Single Limb Standing Single Limb- Right 8 seconds Single Limb- Left 6 seconds Salazar Balance Assessment Evaluation Sitting to Standing Ability Independent w/out Hands Unsupported Stance Safely- 2 minutes Sitting Unsupported, Feet on Floor Safely- 2 minutes Standing to Sitting Ability Independent, Uncontrolled Transfer Ability Safely, Hand Use Unsupported Stance- Eyes Closed Safely, 10 seconds Unsupported Stance- Eyes Open Independent, 1 minute Reaching Forward Standing Confidently, 10 inches Pick- Up Object From Floor Independent/Safe Look Behind Shoulder - Standing Shifts Weight Well Turning 360 Degrees Turns , < 4 secs Unsupported Stance, Alternating Feet on (I)- 8 Steps in > 20 secs Stair Unsupported Tandem Stance Achieves Tandem Unilateral Leg Stance Lifts Leg/Holds 5-10 secs Total Score Salazar Total Score (out of 56 points) 49 Sampson Fall Scale Copyright Permission PT-OP-E Functional Tests Start: 01/08/19 17:01 Freq: Status: Active Protocol: Document 01/08/19 15:15 DCW (Rec: 01/08/19 17:30 DCW [id number]) Functional Tests Dynamic Gait Index (DGI) Score 15/24 DGI Impairment Rating 20 to <40% Impaired (Score 15- 19) PT-OP-G Mobility & Gait Start: 01/08/19 17:01 Freq: Status: Active Protocol: Document 01/08/19 15:15 DCW (Rec: 01/08/19 17:30 DCW [id number]) OP Mobility Evaluation Transfers Sit to Stand Stand->Sit transfers, pt demonstrates rapid, uncontrolled descent into chair Functional Movements Lifting and Carrying Pt unable to lift 30# box OP Gait Assessment Gait Gait Assistance Required: Independent Distance (Feet) 200 Assistive Devices Assistive Device None Gait Deviations General Gait Pattern Decreased Stride Length Factors Limiting Gait Function Factors Limiting Gait Function Decreased Strength Poor Balance Comments Gait Comments Pt ambulates with a slow pallavi, minimal ability to change speed with instruction. Stair Climbing Evaluation Evaluation Level of Assist On Stairs Independent Devices Stair Climbing Assistive Devices Left Railing Right Railing Technique/Endurance Stair Climbing Direction Ascend and Descend Stair Climbing Technique Step to Step Number of Steps Climbed 3 PT-OP-M Strength Start: 01/08/19 17:01 Freq: Status: Active Protocol: Document 01/08/19 15:15 DCW (Rec: 01/08/19 17:30 DCW [id number]) Shoulder Strength Shoulder Manual Muscle Testing Right Flexion 4- Good- Extension 4+ Good+ Abduction (C5) 4- Good- External Rotation 4- Good- Internal Rotation 4+ Good+ Left Flexion 4 Good Extension 4+ Good+ Abduction (C5) 4 Good External Rotation 4 Good Internal Rotation 4+ Good+ Elbow/Forearm Strength Elbow and Forearm Manual Muscle Testing Right Flexion (C6) 4 Good Extension (C7) 4- Good- Left Flexion (C6) 4 Good Extension (C7) 4- Good- Hip Strength Hip Manual Muscle Testing Right Flexion (L2) 3 Fair Abduction 4 Good Adduction 4- Good- External Rotation 4- Good- Internal Rotation 4- Good- Left Flexion (L2) 3+ Fair+ Abduction 4 Good Adduction 4- Good- External Rotation 4- Good- Internal Rotation 4 Good Knee Strength Knee Manual Muscle Testing Right Flexion (S2) 4- Good- Extension (L3) 4- Good- Left Flexion (S2) 4+ Good+ Extension (L3) 4- Good- PT-OP-Q Treatments Start: 01/08/19 17:01 Freq: Status: Active Protocol: Document 03/21/19 07:30 AMB (Rec: 03/21/19 07:54 AMB [id number]) Cardio Equipment Recumbent Stepper (Sci-Fit) Duration (Minutes) 6 Resistance 4 Seat Position 14 Gym Equipment Shuttle Recovery Unilateral Squats Resistance 50# Shuttle Recovery Platform Stable Reps/Time 2x15 ea Bilateral Squats Resistance 100# Shuttle Recovery Platform Stable Reps/Time 2x15 Shuttle Balance Red Details RED fwd Reps/Duration 10 min Comments Fwd staggered stance; side: WBOS & NBOS,head turns Therapeutic Exercises Standing Exercises 2 Standing Exercise Name calf stretch Reps/Minutes 30x2 Comments on IONA hip EXT Side bilateral Equipment Used 3# TB Reps/Minutes 15 x each Comments postural cues Neuro Re-Education Treatment Balance Activities Tandem Stance Details Tandem Stance Surface blue foam PT-OP-T Assessment and Plan Start: 01/08/19 17:01 Freq: Status: Active Protocol: Document 03/21/19 07:30 AMB (Rec: 03/21/19 08:16 AMB [id number]) Physical Therapy Assessment Assessment Summary Assessment Darryl' L knee pain continues to limit his function. Discussed body mechanics for gardening as he feels that the weeding yesterday likely exacerbated his pain. Physical Therapy Plan Next Visit Focus/Plan Next Note Type Treatment Note Next Visit Plan Pt is doing some back exercises at home, could expand with written handout
--- NOTE | 2019-03-24 09:48 | PT.OTN ---
Current Diagnoses Muscle weakness (generalized) (03/24/19) Lung transplant status (03/24/19) Physical Therapy Treatment Note PT-OP-A Visit Information Start: 01/08/19 17:01 Freq: Status: Active Protocol: Document 03/24/19 08:15 EA (Rec: 03/24/19 08:21 EA [id number]) Out-Patient Physical Therapy Visit Information Visit Information Visit Type Treatment Note Visit Start Time 07:30 Visit Stop Time 08:15 Total Visit Minutes 40 Visit Number 17 Number of KNITTING MACHINE FIXER HEAD Visits 0 PT-OP-B Current Condition Start: 01/08/19 17:01 Freq: Status: Active Protocol: Document 01/08/19 15:15 DCW (Rec: 01/08/19 17:30 DCW [id number]) Current Condition History of Current Condition Onset Date 8.5 years s/p lung transplant Current Complaints generalized weakness, fatigue, falls History of Current Condition Pt is an 78 year old male with a complicated medical history , most notably he is eight years s/p lung transplant. Pt reports that ever since his transplant, he has been taking anti-rejection drugs, and I hink they're finally starting to take a toll. Pt reports that over the last two years, he has felt like he is getting weaker and weaker, and my knees are killing me with anything I do. Pt also notes that both his right hip and right shoulder are causing pain most of the time, and he feels weak from the top of my head down to my toes. Pt reports that prior to his transplant, he was told he would need knee replacements, but is now too afraid to have surgery, due to infection and respiratory risk. Pt notes that earlier today, he was unable to lift a 30 pound box at the grocery store, and when he starts walking, my knee hurts by the second step. Prior Treatments and Tests Hx Lung replacement secondary to interstitial lung disease Treatment Goals Patient/Caregiver Goals I would just like to get my arms and legs a little stronger, to make it easier to get around. Prior Functional Status Baseline Function- ADL's Independent Baseline Function- Mobility Independent Current Functional Impairments (Reported) Functional Limitations- ADL's Pt unable to lift a 30# box at the grocery store. Functional Limitations- Mobility/Gait Pt ambulates with a slow gait, small step length. Pt knee pain increases after second step when he begins to walk. Personal Factors Other Personal Factors That May Effect Hx Lung replacement secondary Therapy/Recovery to interstitial lung disease, HTN, DM II, Hx C-diff, GERD, Hx pneumonia, Hx skin cancer PT-OP-C Subjective Start: 01/08/19 17:01 Freq: Status: Active Protocol: Document 03/24/19 08:15 EA (Rec: 03/24/19 08:21 EA [id number]) OP-PT Subjective Patient Comments Patient Comments Pt reports busy doing gardening and has to take tylenol due to general body ache. PT-OP-D Balance Start: 01/08/19 17:01 Freq: Status: Active Protocol: Document 01/08/19 15:15 DCW (Rec: 01/08/19 17:30 DCW [id number]) OP-PT Balance Assessment Sitting Balance Static Sitting Balance Ability Normal Dynamic Sitting Balance Ability Normal Standing Balance Static Standing Balance Ability Good Dynamic Standing Balance Ability Fair Balance Tests Salazar Balance Test Salazar Balance Test Score 49/56 Salazar Impairment Rating 1 to 19% Impaired (Score 45-55 ) Single Limb Standing Single Limb- Right 8 seconds Single Limb- Left 6 seconds Salazar Balance Assessment Evaluation Sitting to Standing Ability Independent w/out Hands Unsupported Stance Safely- 2 minutes Sitting Unsupported, Feet on Floor Safely- 2 minutes Standing to Sitting Ability Independent, Uncontrolled Transfer Ability Safely, Hand Use Unsupported Stance- Eyes Closed Safely, 10 seconds Unsupported Stance- Eyes Open Independent, 1 minute Reaching Forward Standing Confidently, 10 inches Pick- Up Object From Floor Independent/Safe Look Behind Shoulder - Standing Shifts Weight Well Turning 360 Degrees Turns , < 4 secs Unsupported Stance, Alternating Feet on (I)- 8 Steps in > 20 secs Stair Unsupported Tandem Stance Achieves Tandem Unilateral Leg Stance Lifts Leg/Holds 5-10 secs Total Score Salazar Total Score (out of 56 points) 49 Sampson Fall Scale Copyright Permission PT-OP-E Functional Tests Start: 01/08/19 17:01 Freq: Status: Active Protocol: Document 01/08/19 15:15 DCW (Rec: 01/08/19 17:30 DCW [id number]) Functional Tests Dynamic Gait Index (DGI) Score 15/24 DGI Impairment Rating 20 to <40% Impaired (Score 15- 19) PT-OP-G Mobility & Gait Start: 01/08/19 17:01 Freq: Status: Active Protocol: Document 01/08/19 15:15 DCW (Rec: 01/08/19 17:30 [facility] [id number]) OP Mobility Evaluation Transfers Sit to Stand Stand->Sit transfers, pt demonstrates rapid, uncontrolled descent into chair Functional Movements Lifting and Carrying Pt unable to lift 30# box OP Gait Assessment Gait Gait Assistance Required: Independent Distance (Feet) 200 Assistive Devices Assistive Device None Gait Deviations General Gait Pattern Decreased Stride Length Factors Limiting Gait Function Factors Limiting Gait Function Decreased Strength Poor Balance Comments Gait Comments Pt ambulates with a slow pallavi, minimal ability to change speed with instruction. Stair Climbing Evaluation Evaluation Level of Assist On Stairs Independent Devices Stair Climbing Assistive Devices Left Railing Right Railing Technique/Endurance Stair Climbing Direction Ascend and Descend Stair Climbing Technique Step to Step Number of Steps Climbed 3 PT-OP-M Strength Start: 01/08/19 17:01 Freq: Status: Active Protocol: Document 01/08/19 15:15 DCW (Rec: 01/08/19 17:30 [facility] [id number]) Shoulder Strength Shoulder Manual Muscle Testing Right Flexion 4- Good- Extension 4+ Good+ Abduction (C5) 4- Good- External Rotation 4- Good- Internal Rotation 4+ Good+ Left Flexion 4 Good Extension 4+ Good+ Abduction (C5) 4 Good External Rotation 4 Good Internal Rotation 4+ Good+ Elbow/Forearm Strength Elbow and Forearm Manual Muscle Testing Right Flexion (C6) 4 Good Extension (C7) 4- Good- Left Flexion (C6) 4 Good Extension (C7) 4- Good- Hip Strength Hip Manual Muscle Testing Right Flexion (L2) 3 Fair Abduction 4 Good Adduction 4- Good- External Rotation 4- Good- Internal Rotation 4- Good- Left Flexion (L2) 3+ Fair+ Abduction 4 Good Adduction 4- Good- External Rotation 4- Good- Internal Rotation 4 Good Knee Strength Knee Manual Muscle Testing Right Flexion (S2) 4- Good- Extension (L3) 4- Good- Left Flexion (S2) 4+ Good+ Extension (L3) 4- Good- PT-OP-Q Treatments Start: 01/08/19 17:01 Freq: Status: Active Protocol: Document 03/24/19 08:15 EA (Rec: 03/24/19 08:21 EA [id number]) Cardio Equipment Recumbent Stepper (Sci-Fit) Duration (Minutes) 6 Resistance 4 Seat Position 14 Gym Equipment Cable Column (Body Solid) Rows Details Rows Resistance 30# Reps/Time 10x3 Lat Pull Down Details Lat Pull-down Resistance 30# Reps/Time 15x2 Shuttle Recovery Bilateral Squats Resistance 100# Shuttle Recovery Platform Stable Reps/Time 2x15 Shuttle Balance Red Details RED fwd Reps/Duration 10 min Comments Fwd staggered stance; side: WBOS & NBOS,head turns Therapeutic Exercises Sitting Exercises 1 Sitting Exercise Name DB: Shoulder side raises, front raises; overhead press Resistance 2 lbs Reps/Minutes x 12 reps Standing Exercises 2 Standing Exercise Name calf stretch Reps/Minutes 30x2 Comments on IONA Other Exercises 1 Other Exercise Name side step squat Reps/Minutes x 8ft line x 1 laps Comments no hand support w/ SBA Resisted Ambulation Other Exercise Name Cable sit -stand row Comments HEP Neuro Re-Education Treatment Balance Activities Tandem Stance Details Tandem Stance Surface blue foam PT-OP-T Assessment and Plan Start: 01/08/19 17:01 Freq: Status: Active Protocol: Document 03/24/19 08:15 EA (Rec: 03/24/19 08:21 EA [id number]) Physical Therapy Assessment Assessment Summary Assessment Tolerated treatment well with no knee discomfort noted. SBA assist is required during side step squat; patient show very good form during therex. Physical Therapy Plan Next Visit Focus/Plan Next Note Type Treatment Note Next Visit Plan Pt is doing some back exercises at home, could expand with written handout
--- NOTE | 2019-03-27 08:10 | PT.OTN ---
Current Diagnoses Muscle weakness (generalized) (03/27/19) Lung transplant status (03/27/19) Physical Therapy Treatment Note PT-OP-A Visit Information Start: 01/08/19 17:01 Freq: Status: Active Protocol: Document 03/27/19 07:30 AMB (Rec: 03/27/19 07:40 AMB [id number]) Out-Patient Physical Therapy Visit Information Visit Information Visit Type Treatment Note Visit Start Time 07:30 Visit Stop Time 08:15 Total Visit Minutes 40 Visit Number 18 Number of TREE WARDEN Visits 0 PT-OP-B Current Condition Start: 01/08/19 17:01 Freq: Status: Active Protocol: Document 01/08/19 15:15 DCW (Rec: 01/08/19 17:30 DCW [id number]) Current Condition History of Current Condition Onset Date 8.5 years s/p lung transplant Current Complaints generalized weakness, fatigue, falls History of Current Condition Pt is an 78 year old male with a complicated medical history , most notably he is eight years s/p lung transplant. Pt reports that ever since his transplant, he has been taking anti-rejection drugs, and I hink they're finally starting to take a toll. Pt reports that over the last two years, he has felt like he is getting weaker and weaker, and my knees are killing me with anything I do. Pt also notes that both his right hip and right shoulder are causing pain most of the time, and he feels weak from the top of my head down to my toes. Pt reports that prior to his transplant, he was told he would need knee replacements, but is now too afraid to have surgery, due to infection and respiratory risk. Pt notes that earlier today, he was unable to lift a 30 pound box at the grocery store, and when he starts walking, my knee hurts by the second step. Prior Treatments and Tests Hx Lung replacement secondary to interstitial lung disease Treatment Goals Patient/Caregiver Goals I would just like to get my arms and legs a little stronger, to make it easier to get around. Prior Functional Status Baseline Function- ADL's Independent Baseline Function- Mobility Independent Current Functional Impairments (Reported) Functional Limitations- ADL's Pt unable to lift a 30# box at the grocery store. Functional Limitations- Mobility/Gait Pt ambulates with a slow gait, small step length. Pt knee pain increases after second step when he begins to walk. Personal Factors Other Personal Factors That May Effect Hx Lung replacement secondary Therapy/Recovery to interstitial lung disease, HTN, DM II, Hx C-diff, GERD, Hx pneumonia, Hx skin cancer PT-OP-C Subjective Start: 01/08/19 17:01 Freq: Status: Active Protocol: Document 03/27/19 07:30 AMB (Rec: 03/27/19 07:40 AMB [id number]) OP-PT Subjective Patient Comments Patient Comments Pt reports last visit was a good workout but he had a hard time walking for 2 days. PT-OP-D Balance Start: 01/08/19 17:01 Freq: Status: Active Protocol: Document 01/08/19 15:15 DCW (Rec: 01/08/19 17:30 DCW [id number]) OP-PT Balance Assessment Sitting Balance Static Sitting Balance Ability Normal Dynamic Sitting Balance Ability Normal Standing Balance Static Standing Balance Ability Good Dynamic Standing Balance Ability Fair Balance Tests Salazar Balance Test Salazar Balance Test Score 49/56 Salazar Impairment Rating 1 to 19% Impaired (Score 45-55 ) Single Limb Standing Single Limb- Right 8 seconds Single Limb- Left 6 seconds Salazar Balance Assessment Evaluation Sitting to Standing Ability Independent w/out Hands Unsupported Stance Safely- 2 minutes Sitting Unsupported, Feet on Floor Safely- 2 minutes Standing to Sitting Ability Independent, Uncontrolled Transfer Ability Safely, Hand Use Unsupported Stance- Eyes Closed Safely, 10 seconds Unsupported Stance- Eyes Open Independent, 1 minute Reaching Forward Standing Confidently, 10 inches Pick- Up Object From Floor Independent/Safe Look Behind Shoulder - Standing Shifts Weight Well Turning 360 Degrees Turns , < 4 secs Unsupported Stance, Alternating Feet on (I)- 8 Steps in > 20 secs Stair Unsupported Tandem Stance Achieves Tandem Unilateral Leg Stance Lifts Leg/Holds 5-10 secs Total Score Salazar Total Score (out of 56 points) 49 Sampson Fall Scale Copyright Permission PT-OP-E Functional Tests Start: 01/08/19 17:01 Freq: Status: Active Protocol: Document 01/08/19 15:15 DCW (Rec: 01/08/19 17:30 DCW [id number]) Functional Tests Dynamic Gait Index (DGI) Score 15/24 DGI Impairment Rating 20 to <40% Impaired (Score 15- 19) PT-OP-G Mobility & Gait Start: 01/08/19 17:01 Freq: Status: Active Protocol: Document 01/08/19 15:15 DCW (Rec: 01/08/19 17:30 DCW [id number]) OP Mobility Evaluation Transfers Sit to Stand Stand->Sit transfers, pt demonstrates rapid, uncontrolled descent into chair Functional Movements Lifting and Carrying Pt unable to lift 30# box OP Gait Assessment Gait Gait Assistance Required: Independent Distance (Feet) 200 Assistive Devices Assistive Device None Gait Deviations General Gait Pattern Decreased Stride Length Factors Limiting Gait Function Factors Limiting Gait Function Decreased Strength Poor Balance Comments Gait Comments Pt ambulates with a slow pallavi, minimal ability to change speed with instruction. Stair Climbing Evaluation Evaluation Level of Assist On Stairs Independent Devices Stair Climbing Assistive Devices Left Railing Right Railing Technique/Endurance Stair Climbing Direction Ascend and Descend Stair Climbing Technique Step to Step Number of Steps Climbed 3 PT-OP-M Strength Start: 01/08/19 17:01 Freq: Status: Active Protocol: Document 01/08/19 15:15 DCW (Rec: 01/08/19 17:30 [facility] [id number]) Shoulder Strength Shoulder Manual Muscle Testing Right Flexion 4- Good- Extension 4+ Good+ Abduction (C5) 4- Good- External Rotation 4- Good- Internal Rotation 4+ Good+ Left Flexion 4 Good Extension 4+ Good+ Abduction (C5) 4 Good External Rotation 4 Good Internal Rotation 4+ Good+ Elbow/Forearm Strength Elbow and Forearm Manual Muscle Testing Right Flexion (C6) 4 Good Extension (C7) 4- Good- Left Flexion (C6) 4 Good Extension (C7) 4- Good- Hip Strength Hip Manual Muscle Testing Right Flexion (L2) 3 Fair Abduction 4 Good Adduction 4- Good- External Rotation 4- Good- Internal Rotation 4- Good- Left Flexion (L2) 3+ Fair+ Abduction 4 Good Adduction 4- Good- External Rotation 4- Good- Internal Rotation 4 Good Knee Strength Knee Manual Muscle Testing Right Flexion (S2) 4- Good- Extension (L3) 4- Good- Left Flexion (S2) 4+ Good+ Extension (L3) 4- Good- PT-OP-Q Treatments Start: 01/08/19 17:01 Freq: Status: Active Protocol: Document 03/27/19 07:30 AMB (Rec: 03/27/19 07:55 AMB [id number]) Cardio Equipment Recumbent Stepper (Sci-Fit) Duration (Minutes) 6 Resistance 4 Seat Position 12 Gym Equipment Shuttle Recovery Unilateral Squats Resistance 50# Shuttle Recovery Platform Stable Reps/Time 2x15 ea Bilateral Squats Resistance 100# Shuttle Recovery Platform Stable Reps/Time 2x15 Shuttle Balance Red Details RED fwd Reps/Duration 10 min Comments Fwd staggered stance; side: WBOS & NBOS,head turns Therapeutic Exercises Standing Exercises hip EXT Side bilateral Equipment Used 3# TB Reps/Minutes 15 x each Comments postural cues PT-OP-T Assessment and Plan Start: 01/08/19 17:01 Freq: Status: Active Protocol: Document 03/27/19 07:30 AMB (Rec: 03/27/19 07:48 AMB [id number]) Physical Therapy Assessment Assessment Summary Assessment Tolerated treatment well, but was still sore after last visit. Physical Therapy Plan Next Visit Focus/Plan Next Note Type Treatment Note Next Visit Plan Pt doing band exercises at home.
--- NOTE | 2019-04-07 09:43 | PT.OTN ---
Current Diagnoses Muscle weakness (generalized) (04/07/19) Lung transplant status (04/07/19) Physical Therapy Treatment Note PT-OP-A Visit Information Start: 01/08/19 17:01 Freq: Status: Active Protocol: Document 04/07/19 09:00 AMB (Rec: 04/07/19 09:26 AMB [id number]) Out-Patient Physical Therapy Visit Information Visit Information Visit Type Treatment Note Visit Start Time 09:00 Visit Stop Time 09:45 Total Visit Minutes 40 Visit Number 19 Number of PHOTO LAB TECHNICIAN Visits 0 PT-OP-B Current Condition Start: 01/08/19 17:01 Freq: Status: Active Protocol: Document 01/08/19 15:15 DCW (Rec: 01/08/19 17:30 DCW [id number]) Current Condition History of Current Condition Onset Date 8.5 years s/p lung transplant Current Complaints generalized weakness, fatigue, falls History of Current Condition Pt is an 78 year old male with a complicated medical history , most notably he is eight years s/p lung transplant. Pt reports that ever since his transplant, he has been taking anti-rejection drugs, and I hink they're finally starting to take a toll. Pt reports that over the last two years, he has felt like he is getting weaker and weaker, and my knees are killing me with anything I do. Pt also notes that both his right hip and right shoulder are causing pain most of the time, and he feels weak from the top of my head down to my toes. Pt reports that prior to his transplant, he was told he would need knee replacements, but is now too afraid to have surgery, due to infection and respiratory risk. Pt notes that earlier today, he was unable to lift a 30 pound box at the grocery store, and when he starts walking, my knee hurts by the second step. Prior Treatments and Tests Hx Lung replacement secondary to interstitial lung disease Treatment Goals Patient/Caregiver Goals I would just like to get my arms and legs a little stronger, to make it easier to get around. Prior Functional Status Baseline Function- ADL's Independent Baseline Function- Mobility Independent Current Functional Impairments (Reported) Functional Limitations- ADL's Pt unable to lift a 30# box at the grocery store. Functional Limitations- Mobility/Gait Pt ambulates with a slow gait, small step length. Pt knee pain increases after second step when he begins to walk. Personal Factors Other Personal Factors That May Effect Hx Lung replacement secondary Therapy/Recovery to interstitial lung disease, HTN, DM II, Hx C-diff, GERD, Hx pneumonia, Hx skin cancer PT-OP-C Subjective Start: 01/08/19 17:01 Freq: Status: Active Protocol: Document 04/07/19 09:00 AMB (Rec: 04/07/19 09:26 AMB [id number]) OP-PT Subjective Patient Comments Patient Comments Pt reports he feels like it was difficult to get a workout while he was off PT for a week. PT-OP-D Balance Start: 01/08/19 17:01 Freq: Status: Active Protocol: Document 01/08/19 15:15 DCW (Rec: 01/08/19 17:30 DCW [id number]) OP-PT Balance Assessment Sitting Balance Static Sitting Balance Ability Normal Dynamic Sitting Balance Ability Normal Standing Balance Static Standing Balance Ability Good Dynamic Standing Balance Ability Fair Balance Tests Salazar Balance Test Salazar Balance Test Score 49/56 Salazar Impairment Rating 1 to 19% Impaired (Score 45-55 ) Single Limb Standing Single Limb- Right 8 seconds Single Limb- Left 6 seconds Salazar Balance Assessment Evaluation Sitting to Standing Ability Independent w/out Hands Unsupported Stance Safely- 2 minutes Sitting Unsupported, Feet on Floor Safely- 2 minutes Standing to Sitting Ability Independent, Uncontrolled Transfer Ability Safely, Hand Use Unsupported Stance- Eyes Closed Safely, 10 seconds Unsupported Stance- Eyes Open Independent, 1 minute Reaching Forward Standing Confidently, 10 inches Pick- Up Object From Floor Independent/Safe Look Behind Shoulder - Standing Shifts Weight Well Turning 360 Degrees Turns , < 4 secs Unsupported Stance, Alternating Feet on (I)- 8 Steps in > 20 secs Stair Unsupported Tandem Stance Achieves Tandem Unilateral Leg Stance Lifts Leg/Holds 5-10 secs Total Score Salazar Total Score (out of 56 points) 49 Sampson Fall Scale Copyright Permission PT-OP-E Functional Tests Start: 01/08/19 17:01 Freq: Status: Active Protocol: Document 01/08/19 15:15 DCW (Rec: 01/08/19 17:30 DCW [id number]) Functional Tests Dynamic Gait Index (DGI) Score 15/24 DGI Impairment Rating 20 to <40% Impaired (Score 15- 19) PT-OP-G Mobility & Gait Start: 01/08/19 17:01 Freq: Status: Active Protocol: Document 01/08/19 15:15 DCW (Rec: 01/08/19 17:30 [facility] [id number]) OP Mobility Evaluation Transfers Sit to Stand Stand->Sit transfers, pt demonstrates rapid, uncontrolled descent into chair Functional Movements Lifting and Carrying Pt unable to lift 30# box OP Gait Assessment Gait Gait Assistance Required: Independent Distance (Feet) 200 Assistive Devices Assistive Device None Gait Deviations General Gait Pattern Decreased Stride Length Factors Limiting Gait Function Factors Limiting Gait Function Decreased Strength Poor Balance Comments Gait Comments Pt ambulates with a slow pallavi, minimal ability to change speed with instruction. Stair Climbing Evaluation Evaluation Level of Assist On Stairs Independent Devices Stair Climbing Assistive Devices Left Railing Right Railing Technique/Endurance Stair Climbing Direction Ascend and Descend Stair Climbing Technique Step to Step Number of Steps Climbed 3 PT-OP-M Strength Start: 01/08/19 17:01 Freq: Status: Active Protocol: Document 01/08/19 15:15 DCW (Rec: 01/08/19 17:30 [facility] [id number]) Shoulder Strength Shoulder Manual Muscle Testing Right Flexion 4- Good- Extension 4+ Good+ Abduction (C5) 4- Good- External Rotation 4- Good- Internal Rotation 4+ Good+ Left Flexion 4 Good Extension 4+ Good+ Abduction (C5) 4 Good External Rotation 4 Good Internal Rotation 4+ Good+ Elbow/Forearm Strength Elbow and Forearm Manual Muscle Testing Right Flexion (C6) 4 Good Extension (C7) 4- Good- Left Flexion (C6) 4 Good Extension (C7) 4- Good- Hip Strength Hip Manual Muscle Testing Right Flexion (L2) 3 Fair Abduction 4 Good Adduction 4- Good- External Rotation 4- Good- Internal Rotation 4- Good- Left Flexion (L2) 3+ Fair+ Abduction 4 Good Adduction 4- Good- External Rotation 4- Good- Internal Rotation 4 Good Knee Strength Knee Manual Muscle Testing Right Flexion (S2) 4- Good- Extension (L3) 4- Good- Left Flexion (S2) 4+ Good+ Extension (L3) 4- Good- PT-OP-Q Treatments Start: 01/08/19 17:01 Freq: Status: Active Protocol: Document 04/07/19 09:00 AMB (Rec: 04/07/19 09:26 AMB [id number]) Cardio Equipment Recumbent Stepper (Sci-Fit) Duration (Minutes) 6 Resistance 5 Seat Position 12 Gym Equipment Shuttle Recovery Unilateral Squats Resistance 50# Shuttle Recovery Platform Stable Reps/Time 2x15 ea Bilateral Squats Resistance 112# Shuttle Recovery Platform Stable Reps/Time 2x15 Shuttle Balance Red Details RED fwd Reps/Duration 10 min Comments Fwd staggered stance; side: WBOS & NBOS,head turns Therapeutic Exercises Standing Exercises 2 Standing Exercise Name calf stretch Reps/Minutes 30x2 Comments on IONA hip EXT Side bilateral Equipment Used 3# TB Reps/Minutes 15 x each Comments postural cues PT-OP-T Assessment and Plan Start: 01/08/19 17:01 Freq: Status: Active Protocol: Document 04/07/19 09:00 [facility] (Rec: 04/07/19 09:26 [facility] [id number]) Physical Therapy Assessment Assessment Summary Assessment Continued to encourage pt in ways to safety exercise at home. Physical Therapy Plan Next Visit Focus/Plan Next Note Type Treatment Note Next Visit Plan Finalize HEP
--- NOTE | 2019-04-10 13:15 | PT.OTN ---
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) Physical Therapy Treatment Note PT-OP-A Visit Information Start: 01/08/19 17:01 Freq: Status: Active Protocol: Document 04/10/19 07:30 AMB (Rec: 04/10/19 08:17 AMB [email or web address]) Out-Patient Physical Therapy Visit Information Visit Information Visit Type Progress Note Visit Start Time 07:30 Visit Stop Time 08:15 Total Visit Minutes 45 Visit Number 20 Number of UNIONMELT OPERATOR Visits 0 PT-OP-B Current Condition Start: 01/08/19 17:01 Freq: Status: Active Protocol: Document 01/08/19 15:15 DCW (Rec: 01/08/19 17:30 DCW [id number]) Current Condition History of Current Condition Onset Date 8.5 years s/p lung transplant Current Complaints generalized weakness, fatigue, falls History of Current Condition Pt is an 78 year old male with a complicated medical history , most notably he is eight years s/p lung transplant. Pt reports that ever since his transplant, he has been taking anti-rejection drugs, and I hink they're finally starting to take a toll. Pt reports that over the last two years, he has felt like he is getting weaker and weaker, and my knees are killing me with anything I do. Pt also notes that both his right hip and right shoulder are causing pain most of the time, and he feels weak from the top of my head down to my toes. Pt reports that prior to his transplant, he was told he would need knee replacements, but is now too afraid to have surgery, due to infection and respiratory risk. Pt notes that earlier today, he was unable to lift a 30 pound box at the grocery store, and when he starts walking, my knee hurts by the second step. Prior Treatments and Tests Hx Lung replacement secondary to interstitial lung disease Treatment Goals Patient/Caregiver Goals I would just like to get my arms and legs a little stronger, to make it easier to get around. Prior Functional Status Baseline Function- ADL's Independent Baseline Function- Mobility Independent Current Functional Impairments (Reported) Functional Limitations- ADL's Pt unable to lift a 30# box at the grocery store. Functional Limitations- Mobility/Gait Pt ambulates with a slow gait, small step length. Pt knee pain increases after second step when he begins to walk. Personal Factors Other Personal Factors That May Effect Hx Lung replacement secondary Therapy/Recovery to interstitial lung disease, HTN, DM II, Hx C-diff, GERD, Hx pneumonia, Hx skin cancer PT-OP-C Subjective Start: 01/08/19 17:01 Freq: Status: Active Protocol: Document 04/10/19 07:30 AMB (Rec: 04/10/19 08:17 AMB [email or web address]) OP-PT Subjective Patient Comments Patient Comments Pt reports he hurt his back lifting propane tanks yesterday, it felt ok at the time, but then he woke up sore . PT-OP-D Balance Start: 01/08/19 17:01 Freq: Status: Active Protocol: Document 01/08/19 15:15 DCW (Rec: 01/08/19 17:30 DCW [id number]) OP-PT Balance Assessment Sitting Balance Static Sitting Balance Ability Normal Dynamic Sitting Balance Ability Normal Standing Balance Static Standing Balance Ability Good Dynamic Standing Balance Ability Fair Balance Tests Salazar Balance Test Salazar Balance Test Score 49/56 Salazar Impairment Rating 1 to 19% Impaired (Score 45-55 ) Single Limb Standing Single Limb- Right 8 seconds Single Limb- Left 6 seconds Salazar Balance Assessment Evaluation Sitting to Standing Ability Independent w/out Hands Unsupported Stance Safely- 2 minutes Sitting Unsupported, Feet on Floor Safely- 2 minutes Standing to Sitting Ability Independent, Uncontrolled Transfer Ability Safely, Hand Use Unsupported Stance- Eyes Closed Safely, 10 seconds Unsupported Stance- Eyes Open Independent, 1 minute Reaching Forward Standing Confidently, 10 inches Pick- Up Object From Floor Independent/Safe Look Behind Shoulder - Standing Shifts Weight Well Turning 360 Degrees Turns , < 4 secs Unsupported Stance, Alternating Feet on (I)- 8 Steps in > 20 secs Stair Unsupported Tandem Stance Achieves Tandem Unilateral Leg Stance Lifts Leg/Holds 5-10 secs Total Score Salazar Total Score (out of 56 points) 49 Sampson Fall Scale Copyright Permission PT-OP-E Functional Tests Start: 01/08/19 17:01 Freq: Status: Active Protocol: Document 04/10/19 07:30 AMB (Rec: 04/10/19 12:50 AMB [email or web address]) Functional Tests Dynamic Gait Index (DGI) Score 17 DGI Impairment Rating 20 to <40% Impaired (Score 15- 19) PT-OP-G Mobility & Gait Start: 01/08/19 17:01 Freq: Status: Active Protocol: Document 01/08/19 15:15 DCW (Rec: 01/08/19 17:30 DCW [id number]) OP Mobility Evaluation Transfers Sit to Stand Stand->Sit transfers, pt demonstrates rapid, uncontrolled descent into chair Functional Movements Lifting and Carrying Pt unable to lift 30# box OP Gait Assessment Gait Gait Assistance Required: Independent Distance (Feet) 200 Assistive Devices Assistive Device None Gait Deviations General Gait Pattern Decreased Stride Length Factors Limiting Gait Function Factors Limiting Gait Function Decreased Strength Poor Balance Comments Gait Comments Pt ambulates with a slow pallavi, minimal ability to change speed with instruction. Stair Climbing Evaluation Evaluation Level of Assist On Stairs Independent Devices Stair Climbing Assistive Devices Left Railing Right Railing Technique/Endurance Stair Climbing Direction Ascend and Descend Stair Climbing Technique Step to Step Number of Steps Climbed 3 PT-OP-M Strength Start: 01/08/19 17:01 Freq: Status: Active Protocol: Document 04/10/19 07:30 AMB (Rec: 04/10/19 12:50 AMB [email or web address]) Hip Strength Hip Manual Muscle Testing Right Flexion (L2) 4 Good Abduction 4 Good Adduction 4 Good Left Flexion (L2) 4 Good Abduction 4 Good Adduction 4 Good Knee Strength Knee Manual Muscle Testing Right Flexion (S2) 4 Good Extension (L3) 4- Good- Left Flexion (S2) 4+ Good+ Extension (L3) 4 Good PT-OP-Q Treatments Start: 01/08/19 17:01 Freq: Status: Active Protocol: Document 04/10/19 07:30 AMB (Rec: 04/10/19 13:15 AMB [email or web address]) Cardio Equipment Recumbent Stepper (Sci-Fit) Duration (Minutes) 6 Resistance 5 Seat Position 12 Gym Equipment Shuttle Recovery Unilateral Squats Resistance 50# Shuttle Recovery Platform Stable Reps/Time 2x15 ea Bilateral Squats Resistance 112# Shuttle Recovery Platform Stable Reps/Time 2x15 Therapeutic Exercises Supine Exercises 1 Supine Exercise Name lower trunk rotation Reps/Minutes 10 Straight Leg Raise Reps/Minutes 10 Other Exercises 2 Other Exercise Name chip pose Reps/Minutes 30x2 Neuro Re-Education Treatment Balance Activities hurdles Details x2 Comments walking without pausing Tandem Stance Details Tandem Stance Surface blue foam PT-OP-T Assessment and Plan Start: 01/08/19 17:01 Freq: Status: Active Protocol: Document 04/10/19 07:30 AMB (Rec: 04/10/19 07:41 AMB [id number]) Physical Therapy Assessment Goals Four Impairment Global weakness Environmental Communications Specialist Goal (LTG) UE and LE MMT to grossly 4+/5 04/10 progress made, but knee continues to be painful/weak LTG Duration 03/10/19 Three Impairment Pt reports increased knee pain when walking Short Term Goal (STG) Pt to tolerate walking for 6 minutes with no reports of increased knee pain. 04/10 knee pain starts almost immediately STG Duration 02/08/19 Two Impairment Pt at an increased falls risk per 15/24 DGI Short Term Goal (STG) Pt to report no falls over a one month period STG Duration MET Retirement Goal (LTG) Pt to score at least 20/24 on DGI 04/10 Progress made improved to 17/24 LTG Duration 03/10/19 One Impairment Pt does not have an appropriate home exercise program Short Term Goal (STG) Pt to be independent and compliant with an appropriate HEP STG Duration MET Assessment Summary Assessment Darryl had made good improvements in his UE strength, some LE strength, and made some improvements in his balance. He feels like his better able to catch himself if he does lose his balance than when he started PT. His back pain and knee pain continue to bother him and limit his function. He would benefit from further PT to make sure he is lifting with good body mechanics and has a program both for his knees and for his back. Physical Therapy Plan Frequency and Duration Frequency of Treatment 2x/Week Duration of Treatment 6 weeks Plan of Care Start Date 04/10/19 Plan of Care End Date 05/22/19 Therapeutic Interventions Therapeutic Interventions Aquatic Therapy Balance Training Gait Training Home Exercise Program Manual Therapy Neuromuscular Re-education Patient/Caregiver Education Self-Care/Home Management Soft Tissue Mobilization Therapeutic Activities Therapeutic Exercises Modalities Cold Pack/Ice Massage Electric Stimulation Hot Packs Ultrasound Next Visit Focus/Plan Next Note Type Treatment Note Next Visit Plan Finalize HEP
--- NOTE | 2019-04-10 13:16 | PT.OPPOC ---
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) Provider Visit Care Team Role Provider Type Froilan Morgan MD Family Provider Physician Primary Care Provider Specialty: Internal Medicine Address: [address] [place] [address], [id number] Email: Ana Maria Mullins MD Attending Provider Non-Staff Specialty: Internal Medicine Address: [address] [place] [address], [facility], [place], [place], [facility] Email: Plan Of Care PT-OP-T Assessment and Plan Start: 01/08/19 17:01 Freq: Status: Active Protocol: Document 04/10/19 07:30 AMB (Rec: 04/10/19 07:41 AMB [id number]) Physical Therapy Assessment Goals Four Impairment Global weakness Forestry Instructor Goal (LTG) UE and LE MMT to grossly 4+/5 88 progress made, but knee continues to be painful/weak LTG Duration 03/10/19 Three Impairment Pt reports increased knee pain when walking Short Term Goal (STG) Pt to tolerate walking for 6 minutes with no reports of increased knee pain. 8/8 knee pain starts almost immediately STG Duration 02/08/19 Two Impairment Pt at an increased falls risk per 15/24 DGI Short Term Goal (STG) Pt to report no falls over a one month period STG Duration MET Forestry Instructor Goal (LTG) Pt to score at least 20/24 on DGI 8/8 Progress made improved to 17/24 LTG Duration 03/10/19 One Impairment Pt does not have an appropriate home exercise program Short Term Goal (STG) Pt to be independent and compliant with an appropriate HEP STG Duration MET Assessment Summary Assessment Darryl had made good improvements in his UE strength, some LE strength, and made some improvements in his balance. He feels like his better able to catch himself if he does lose his balance than when he started PT. His back pain and knee pain continue to bother him and limit his function. He would benefit from further PT to make sure he is lifting with good body mechanics and has a program both for his knees and for his back. Physical Therapy Plan Frequency and Duration Frequency of Treatment 2x/Week Duration of Treatment 6 weeks Plan of Care Start Date 04/10/19 Plan of Care End Date 05/22/19 Therapeutic Interventions Therapeutic Interventions Aquatic Therapy Balance Training Gait Training Home Exercise Program Manual Therapy Neuromuscular Re-education Patient/Caregiver Education Self-Care/Home Management Soft Tissue Mobilization Therapeutic Activities Therapeutic Exercises Modalities Cold Pack/Ice Massage Electric Stimulation Hot Packs Ultrasound Next Visit Focus/Plan Next Note Type Treatment Note Next Visit Plan Finalize HEP Plan of Care Dates Plan of Care Start Date 04/10/19 Plan of Care End Date 05/22/19 Please Sign and Return: I have reviewed this Plan of Care and certify that the skilled therapy services above are required to meet the patient?s needs. Physician Signature Date Printed Name and Credentials Clinical Instructor Signature Printed Name and Credentials
--- NOTE | 2019-04-15 08:17 | PT.OTN ---
Current Diagnoses Muscle weakness (generalized) (04/15/19) Lung transplant status (04/15/19) Physical Therapy Treatment Note PT-OP-A Visit Information Start: 01/08/19 17:01 Freq: Status: Active Protocol: Document 04/15/19 07:30 AMB (Rec: 04/15/19 07:40 AMB [id number]) Out-Patient Physical Therapy Visit Information Visit Information Visit Type Treatment Note Visit Start Time 07:30 Visit Stop Time 08:15 Total Visit Minutes 45 Visit Number 21 PT-OP-B Current Condition Start: 01/08/19 17:01 Freq: Status: Active Protocol: Document 01/08/19 15:15 DCW (Rec: 01/08/19 17:30 DCW [id number]) Current Condition History of Current Condition Onset Date 8.5 years s/p lung transplant Current Complaints generalized weakness, fatigue, falls History of Current Condition Pt is an 78 year old male with a complicated medical history , most notably he is eight years s/p lung transplant. Pt reports that ever since his transplant, he has been taking anti-rejection drugs, and I hink they're finally starting to take a toll. Pt reports that over the last two years, he has felt like he is getting weaker and weaker, and my knees are killing me with anything I do. Pt also notes that both his right hip and right shoulder are causing pain most of the time, and he feels weak from the top of my head down to my toes. Pt reports that prior to his transplant, he was told he would need knee replacements, but is now too afraid to have surgery, due to infection and respiratory risk. Pt notes that earlier today, he was unable to lift a 30 pound box at the grocery store, and when he starts walking, my knee hurts by the second step. Prior Treatments and Tests Hx Lung replacement secondary to interstitial lung disease Treatment Goals Patient/Caregiver Goals I would just like to get my arms and legs a little stronger, to make it easier to get around. Prior Functional Status Baseline Function- ADL's Independent Baseline Function- Mobility Independent Current Functional Impairments (Reported) Functional Limitations- ADL's Pt unable to lift a 30# box at the grocery store. Functional Limitations- Mobility/Gait Pt ambulates with a slow gait, small step length. Pt knee pain increases after second step when he begins to walk. Personal Factors Other Personal Factors That May Effect Hx Lung replacement secondary Therapy/Recovery to interstitial lung disease, HTN, DM II, Hx C-diff, GERD, Hx pneumonia, Hx skin cancer PT-OP-C Subjective Start: 01/08/19 17:01 Freq: Status: Active Protocol: Document 04/15/19 07:30 AMB (Rec: 04/15/19 07:40 AMB [id number]) OP-PT Subjective Patient Comments Patient Comments Pt states he had to put propane tanks back over the weekend and tried to do it the way we suggested but it still hurt a bit. PT-OP-D Balance Start: 01/08/19 17:01 Freq: Status: Active Protocol: Document 01/08/19 15:15 DCW (Rec: 01/08/19 17:30 DCW [id number]) OP-PT Balance Assessment Sitting Balance Static Sitting Balance Ability Normal Dynamic Sitting Balance Ability Normal Standing Balance Static Standing Balance Ability Good Dynamic Standing Balance Ability Fair Balance Tests Salazar Balance Test Salazar Balance Test Score 49/56 Salazar Impairment Rating 1 to 19% Impaired (Score 45-55 ) Single Limb Standing Single Limb- Right 8 seconds Single Limb- Left 6 seconds Salazar Balance Assessment Evaluation Sitting to Standing Ability Independent w/out Hands Unsupported Stance Safely- 2 minutes Sitting Unsupported, Feet on Floor Safely- 2 minutes Standing to Sitting Ability Independent, Uncontrolled Transfer Ability Safely, Hand Use Unsupported Stance- Eyes Closed Safely, 10 seconds Unsupported Stance- Eyes Open Independent, 1 minute Reaching Forward Standing Confidently, 10 inches Pick- Up Object From Floor Independent/Safe Look Behind Shoulder - Standing Shifts Weight Well Turning 360 Degrees Turns , < 4 secs Unsupported Stance, Alternating Feet on (I)- 8 Steps in > 20 secs Stair Unsupported Tandem Stance Achieves Tandem Unilateral Leg Stance Lifts Leg/Holds 5-10 secs Total Score Salazar Total Score (out of 56 points) 49 Sampson Fall Scale Copyright Permission PT-OP-E Functional Tests Start: 01/08/19 17:01 Freq: Status: Active Protocol: Document 04/10/19 07:30 AMB (Rec: 04/10/19 12:50 AMB [email or web address]) Functional Tests Dynamic Gait Index (DGI) Score 17 DGI Impairment Rating 20 to <40% Impaired (Score 15- 19) PT-OP-G Mobility & Gait Start: 01/08/19 17:01 Freq: Status: Active Protocol: Document 01/08/19 15:15 DCW (Rec: 01/08/19 17:30 DCW [id number]) OP Mobility Evaluation Transfers Sit to Stand Stand->Sit transfers, pt demonstrates rapid, uncontrolled descent into chair Functional Movements Lifting and Carrying Pt unable to lift 30# box OP Gait Assessment Gait Gait Assistance Required: Independent Distance (Feet) 200 Assistive Devices Assistive Device None Gait Deviations General Gait Pattern Decreased Stride Length Factors Limiting Gait Function Factors Limiting Gait Function Decreased Strength Poor Balance Comments Gait Comments Pt ambulates with a slow pallavi, minimal ability to change speed with instruction. Stair Climbing Evaluation Evaluation Level of Assist On Stairs Independent Devices Stair Climbing Assistive Devices Left Railing Right Railing Technique/Endurance Stair Climbing Direction Ascend and Descend Stair Climbing Technique Step to Step Number of Steps Climbed 3 PT-OP-M Strength Start: 01/08/19 17:01 Freq: Status: Active Protocol: Document 04/10/19 07:30 AMB (Rec: 04/10/19 12:50 AMB [email or web address]) Hip Strength Hip Manual Muscle Testing Right Flexion (L2) 4 Good Abduction 4 Good Adduction 4 Good Left Flexion (L2) 4 Good Abduction 4 Good Adduction 4 Good Knee Strength Knee Manual Muscle Testing Right Flexion (S2) 4 Good Extension (L3) 4- Good- Left Flexion (S2) 4+ Good+ Extension (L3) 4 Good PT-OP-Q Treatments Start: 01/08/19 17:01 Freq: Status: Active Protocol: Document 04/15/19 07:30 AMB (Rec: 04/15/19 07:47 AMB [id number]) Cardio Equipment Recumbent Stepper (Sci-Fit) Duration (Minutes) 6 Resistance 5 Seat Position 12 Gym Equipment Shuttle Recovery Unilateral Squats Resistance 50# Shuttle Recovery Platform Stable Reps/Time 2x15 ea Bilateral Squats Resistance 100# Shuttle Recovery Platform Stable Reps/Time 2x15 Shuttle Balance Red Details RED fwd Reps/Duration 10 min Comments Fwd staggered stance; side: WBOS & NBOS,head turns Therapeutic Exercises Standing Exercises 2 Standing Exercise Name calf stretch Reps/Minutes 30x2 Comments on IONA 1 Standing Exercise Name hamstring stretch Reps/Minutes 30x2 Comments on step Shoulder Extension Resistance #4 t band Reps/Minutes 10x2 PT-OP-T Assessment and Plan Start: 01/08/19 17:01 Freq: Status: Active Protocol: Document 04/15/19 07:30 AMB (Rec: 04/15/19 07:40 AMB [id number]) Physical Therapy Assessment Assessment Summary Assessment Darryl continues to have knee back pain that limit his ability with dynamic balance, but was able to tolerate today . Physical Therapy Plan Next Visit Focus/Plan Next Note Type Treatment Note Next Visit Plan Finalize HEP
--- NOTE | 2019-04-24 13:25 | PT.OTN ---
Current Diagnoses Muscle weakness (generalized) (04/24/19) Lung transplant status (04/24/19) Physical Therapy Treatment Note PT-OP-A Visit Information Start: 01/08/19 17:01 Freq: Status: Active Protocol: Document 04/24/19 07:45 AMB (Rec: 04/24/19 07:49 AMB [id number]) Out-Patient Physical Therapy Visit Information Visit Information Visit Type Treatment Note Visit Start Time 07:45 Visit Stop Time 08:15 Total Visit Minutes 30 Visit Number 22 PT-OP-B Current Condition Start: 01/08/19 17:01 Freq: Status: Active Protocol: Document 01/08/19 15:15 DCW (Rec: 01/08/19 17:30 DCW [id number]) Current Condition History of Current Condition Onset Date 8.5 years s/p lung transplant Current Complaints generalized weakness, fatigue, falls History of Current Condition Pt is an 78 year old male with a complicated medical history , most notably he is eight years s/p lung transplant. Pt reports that ever since his transplant, he has been taking anti-rejection drugs, and I hink they're finally starting to take a toll. Pt reports that over the last two years, he has felt like he is getting weaker and weaker, and my knees are killing me with anything I do. Pt also notes that both his right hip and right shoulder are causing pain most of the time, and he feels weak from the top of my head down to my toes. Pt reports that prior to his transplant, he was told he would need knee replacements, but is now too afraid to have surgery, due to infection and respiratory risk. Pt notes that earlier today, he was unable to lift a 30 pound box at the grocery store, and when he starts walking, my knee hurts by the second step. Prior Treatments and Tests Hx Lung replacement secondary to interstitial lung disease Treatment Goals Patient/Caregiver Goals I would just like to get my arms and legs a little stronger, to make it easier to get around. Prior Functional Status Baseline Function- ADL's Independent Baseline Function- Mobility Independent Current Functional Impairments (Reported) Functional Limitations- ADL's Pt unable to lift a 30# box at the grocery store. Functional Limitations- Mobility/Gait Pt ambulates with a slow gait, small step length. Pt knee pain increases after second step when he begins to walk. Personal Factors Other Personal Factors That May Effect Hx Lung replacement secondary Therapy/Recovery to interstitial lung disease, HTN, DM II, Hx C-diff, GERD, Hx pneumonia, Hx skin cancer PT-OP-C Subjective Start: 01/08/19 17:01 Freq: Status: Active Protocol: Document 04/24/19 07:45 AMB (Rec: 04/24/19 07:49 AMB [id number]) OP-PT Subjective Patient Comments Patient Comments Pt states he has been busy all week, knees and back are sore . PT-OP-D Balance Start: 01/08/19 17:01 Freq: Status: Active Protocol: Document 01/08/19 15:15 DCW (Rec: 01/08/19 17:30 DCW [id number]) OP-PT Balance Assessment Sitting Balance Static Sitting Balance Ability Normal Dynamic Sitting Balance Ability Normal Standing Balance Static Standing Balance Ability Good Dynamic Standing Balance Ability Fair Balance Tests Salazar Balance Test Salazar Balance Test Score 49/56 Salazar Impairment Rating 1 to 19% Impaired (Score 45-55 ) Single Limb Standing Single Limb- Right 8 seconds Single Limb- Left 6 seconds Salazar Balance Assessment Evaluation Sitting to Standing Ability Independent w/out Hands Unsupported Stance Safely- 2 minutes Sitting Unsupported, Feet on Floor Safely- 2 minutes Standing to Sitting Ability Independent, Uncontrolled Transfer Ability Safely, Hand Use Unsupported Stance- Eyes Closed Safely, 10 seconds Unsupported Stance- Eyes Open Independent, 1 minute Reaching Forward Standing Confidently, 10 inches Pick- Up Object From Floor Independent/Safe Look Behind Shoulder - Standing Shifts Weight Well Turning 360 Degrees Turns , < 4 secs Unsupported Stance, Alternating Feet on (I)- 8 Steps in > 20 secs Stair Unsupported Tandem Stance Achieves Tandem Unilateral Leg Stance Lifts Leg/Holds 5-10 secs Total Score Salazar Total Score (out of 56 points) 49 Sampson Fall Scale Copyright Permission PT-OP-E Functional Tests Start: 01/08/19 17:01 Freq: Status: Active Protocol: Document 04/10/19 07:30 AMB (Rec: 04/10/19 12:50 AMB [email or web address]) Functional Tests Dynamic Gait Index (DGI) Score 17 DGI Impairment Rating 20 to <40% Impaired (Score 15- 19) PT-OP-G Mobility & Gait Start: 01/08/19 17:01 Freq: Status: Active Protocol: Document 01/08/19 15:15 DCW (Rec: 01/08/19 17:30 DCW [id number]) OP Mobility Evaluation Transfers Sit to Stand Stand->Sit transfers, pt demonstrates rapid, uncontrolled descent into chair Functional Movements Lifting and Carrying Pt unable to lift 30# box OP Gait Assessment Gait Gait Assistance Required: Independent Distance (Feet) 200 Assistive Devices Assistive Device None Gait Deviations General Gait Pattern Decreased Stride Length Factors Limiting Gait Function Factors Limiting Gait Function Decreased Strength Poor Balance Comments Gait Comments Pt ambulates with a slow pallavi, minimal ability to change speed with instruction. Stair Climbing Evaluation Evaluation Level of Assist On Stairs Independent Devices Stair Climbing Assistive Devices Left Railing Right Railing Technique/Endurance Stair Climbing Direction Ascend and Descend Stair Climbing Technique Step to Step Number of Steps Climbed 3 PT-OP-M Strength Start: 01/08/19 17:01 Freq: Status: Active Protocol: Document 04/10/19 07:30 AMB (Rec: 04/10/19 12:50 AMB [email or web address]) Hip Strength Hip Manual Muscle Testing Right Flexion (L2) 4 Good Abduction 4 Good Adduction 4 Good Left Flexion (L2) 4 Good Abduction 4 Good Adduction 4 Good Knee Strength Knee Manual Muscle Testing Right Flexion (S2) 4 Good Extension (L3) 4- Good- Left Flexion (S2) 4+ Good+ Extension (L3) 4 Good PT-OP-Q Treatments Start: 01/08/19 17:01 Freq: Status: Active Protocol: Document 04/24/19 07:30 AMB (Rec: 04/24/19 08:03 AMB [id number]) Cardio Equipment Recumbent Stepper (Sci-Fit) Duration (Minutes) 6 Resistance 7 Seat Position 12 Gym Equipment Shuttle Recovery Unilateral Squats Resistance 50# Shuttle Recovery Platform Stable Reps/Time 2x15 ea Bilateral Squats Resistance 100# Shuttle Recovery Platform Stable Reps/Time 2x15 Shuttle Balance Red Details RED fwd Reps/Duration 10 min Comments Fwd staggered stance; side: WBOS & NBOS,head turns Therapeutic Exercises Standing Exercises 2 Standing Exercise Name calf stretch Reps/Minutes 30x2 Comments on IONA Rows Resistance Tband #3 Reps/Minutes 2x10 PT-OP-T Assessment and Plan Start: 01/08/19 17:01 Freq: Status: Active Protocol: Document 04/24/19 07:45 AMB (Rec: 04/24/19 07:49 AMB [id number]) Physical Therapy Assessment Assessment Summary Assessment Darryl has been doing his HEP 1x/day. Step ups remain painful, but otherwise his strength is improving. Physical Therapy Plan Next Visit Focus/Plan Next Note Type Treatment Note Next Visit Plan Finalize HEP
--- NOTE | 2019-04-30 08:10 | PT.OTN ---
Current Diagnoses Muscle weakness (generalized) (04/30/19) Lung transplant status (04/30/19) Physical Therapy Treatment Note PT-OP-A Visit Information Start: 01/08/19 17:01 Freq: Status: Active Protocol: Document 04/30/19 07:30 AMB (Rec: 04/30/19 07:39 AMB [id number]) Out-Patient Physical Therapy Visit Information Visit Information Visit Type Treatment Note Visit Start Time 07:30 Visit Stop Time 08:15 Total Visit Minutes 31 Visit Number 23 PT-OP-B Current Condition Start: 01/08/19 17:01 Freq: Status: Active Protocol: Document 01/08/19 15:15 DCW (Rec: 01/08/19 17:30 DCW [id number]) Current Condition History of Current Condition Onset Date 8.5 years s/p lung transplant Current Complaints generalized weakness, fatigue, falls History of Current Condition Pt is an 78 year old male with a complicated medical history , most notably he is eight years s/p lung transplant. Pt reports that ever since his transplant, he has been taking anti-rejection drugs, and I hink they're finally starting to take a toll. Pt reports that over the last two years, he has felt like he is getting weaker and weaker, and my knees are killing me with anything I do. Pt also notes that both his right hip and right shoulder are causing pain most of the time, and he feels weak from the top of my head down to my toes. Pt reports that prior to his transplant, he was told he would need knee replacements, but is now too afraid to have surgery, due to infection and respiratory risk. Pt notes that earlier today, he was unable to lift a 30 pound box at the grocery store, and when he starts walking, my knee hurts by the second step. Prior Treatments and Tests Hx Lung replacement secondary to interstitial lung disease Treatment Goals Patient/Caregiver Goals I would just like to get my arms and legs a little stronger, to make it easier to get around. Prior Functional Status Baseline Function- ADL's Independent Baseline Function- Mobility Independent Current Functional Impairments (Reported) Functional Limitations- ADL's Pt unable to lift a 30# box at the grocery store. Functional Limitations- Mobility/Gait Pt ambulates with a slow gait, small step length. Pt knee pain increases after second step when he begins to walk. Personal Factors Other Personal Factors That May Effect Hx Lung replacement secondary Therapy/Recovery to interstitial lung disease, HTN, DM II, Hx C-diff, GERD, Hx pneumonia, Hx skin cancer PT-OP-C Subjective Start: 01/08/19 17:01 Freq: Status: Active Protocol: Document 04/30/19 07:30 AMB (Rec: 04/30/19 07:39 AMB [id number]) OP-PT Subjective Patient Comments Patient Comments Pt was more sore after PT last week for a few hours. PT-OP-D Balance Start: 01/08/19 17:01 Freq: Status: Active Protocol: Document 01/08/19 15:15 DCW (Rec: 01/08/19 17:30 DCW [id number]) OP-PT Balance Assessment Sitting Balance Static Sitting Balance Ability Normal Dynamic Sitting Balance Ability Normal Standing Balance Static Standing Balance Ability Good Dynamic Standing Balance Ability Fair Balance Tests Salazar Balance Test Salazar Balance Test Score 49/56 Salazar Impairment Rating 1 to 19% Impaired (Score 45-55 ) Single Limb Standing Single Limb- Right 8 seconds Single Limb- Left 6 seconds Salazar Balance Assessment Evaluation Sitting to Standing Ability Independent w/out Hands Unsupported Stance Safely- 2 minutes Sitting Unsupported, Feet on Floor Safely- 2 minutes Standing to Sitting Ability Independent, Uncontrolled Transfer Ability Safely, Hand Use Unsupported Stance- Eyes Closed Safely, 10 seconds Unsupported Stance- Eyes Open Independent, 1 minute Reaching Forward Standing Confidently, 10 inches Pick- Up Object From Floor Independent/Safe Look Behind Shoulder - Standing Shifts Weight Well Turning 360 Degrees Turns , < 4 secs Unsupported Stance, Alternating Feet on (I)- 8 Steps in > 20 secs Stair Unsupported Tandem Stance Achieves Tandem Unilateral Leg Stance Lifts Leg/Holds 5-10 secs Total Score Salazar Total Score (out of 56 points) 49 Sampson Fall Scale Copyright Permission PT-OP-E Functional Tests Start: 01/08/19 17:01 Freq: Status: Active Protocol: Document 04/10/19 07:30 AMB (Rec: 04/10/19 12:50 AMB [email or web address]) Functional Tests Dynamic Gait Index (DGI) Score 17 DGI Impairment Rating 20 to <40% Impaired (Score 15- 19) PT-OP-G Mobility & Gait Start: 01/08/19 17:01 Freq: Status: Active Protocol: Document 01/08/19 15:15 DCW (Rec: 01/08/19 17:30 DCW [id number]) OP Mobility Evaluation Transfers Sit to Stand Stand->Sit transfers, pt demonstrates rapid, uncontrolled descent into chair Functional Movements Lifting and Carrying Pt unable to lift 30# box OP Gait Assessment Gait Gait Assistance Required: Independent Distance (Feet) 200 Assistive Devices Assistive Device None Gait Deviations General Gait Pattern Decreased Stride Length Factors Limiting Gait Function Factors Limiting Gait Function Decreased Strength,Poor Balance Comments Gait Comments Pt ambulates with a slow pallavi, minimal ability to change speed with instruction. Stair Climbing Evaluation Evaluation Level of Assist On Stairs Independent Devices Stair Climbing Assistive Devices Left Railing,Right Railing Technique/Endurance Stair Climbing Direction Ascend and Descend Stair Climbing Technique Step to Step Number of Steps Climbed 3 PT-OP-M Strength Start: 01/08/19 17:01 Freq: Status: Active Protocol: Document 04/10/19 07:30 AMB (Rec: 04/10/19 12:50 AMB [email or web address]) Hip Strength Hip Manual Muscle Testing Right Flexion (L2) 4 Good Abduction 4 Good Adduction 4 Good Left Flexion (L2) 4 Good Abduction 4 Good Adduction 4 Good Knee Strength Knee Manual Muscle Testing Right Flexion (S2) 4 Good Extension (L3) 4- Good- Left Flexion (S2) 4+ Good+ Extension (L3) 4 Good PT-OP-Q Treatments Start: 01/08/19 17:01 Freq: Status: Active Protocol: Document 04/30/19 07:30 AMB (Rec: 04/30/19 07:39 AMB [id number]) Gym Equipment Shuttle Recovery Unilateral Squats Resistance 50# Shuttle Recovery Platform Stable Reps/Time 2x15 ea Bilateral Squats Resistance 100# Shuttle Recovery Platform Stable Reps/Time 2x15 Shuttle Balance Red Details RED fwd Reps/Duration 10 min Comments Fwd staggered stance; side: WBOS & NBOS,head turns Therapeutic Exercises Standing Exercises 2 Standing Exercise Name calf stretch Reps/Minutes 30x2 Comments on IONA 1 Standing Exercise Name mini squats Reps/Minutes 8 PT-OP-T Assessment and Plan Start: 01/08/19 17:01 Freq: Status: Active Protocol: Document 04/30/19 07:30 AMB (Rec: 04/30/19 08:09 AMB [email or web address]) Physical Therapy Assessment Assessment Summary Assessment Darryl continues to have knee pain that limits his ability with even the smallest squats. Physical Therapy Plan Next Visit Focus/Plan Next Note Type Treatment Note Next Visit Plan Finalize HEP
--- NOTE | 2019-05-02 08:09 | PT.OTN ---
Current Diagnoses Muscle weakness (generalized) (05/02/19) Lung transplant status (05/02/19) Physical Therapy Treatment Note PT-OP-A Visit Information Start: 01/08/19 17:01 Freq: Status: Active Protocol: Document 05/02/19 07:30 AMB (Rec: 05/02/19 07:45 AMB [id number]) Out-Patient Physical Therapy Visit Information Visit Information Visit Type Treatment Note Visit Start Time 07:30 Visit Stop Time 08:15 Total Visit Minutes 31 Visit Number 24 PT-OP-B Current Condition Start: 01/08/19 17:01 Freq: Status: Active Protocol: Document 01/08/19 15:15 DCW (Rec: 01/08/19 17:30 DCW [id number]) Current Condition History of Current Condition Onset Date 8.5 years s/p lung transplant Current Complaints generalized weakness, fatigue, falls History of Current Condition Pt is an 78 year old male with a complicated medical history , most notably he is eight years s/p lung transplant. Pt reports that ever since his transplant, he has been taking anti-rejection drugs, and I hink they're finally starting to take a toll. Pt reports that over the last two years, he has felt like he is getting weaker and weaker, and my knees are killing me with anything I do. Pt also notes that both his right hip and right shoulder are causing pain most of the time, and he feels weak from the top of my head down to my toes. Pt reports that prior to his transplant, he was told he would need knee replacements, but is now too afraid to have surgery, due to infection and respiratory risk. Pt notes that earlier today, he was unable to lift a 30 pound box at the grocery store, and when he starts walking, my knee hurts by the second step. Prior Treatments and Tests Hx Lung replacement secondary to interstitial lung disease Treatment Goals Patient/Caregiver Goals I would just like to get my arms and legs a little stronger, to make it easier to get around. Prior Functional Status Baseline Function- ADL's Independent Baseline Function- Mobility Independent Current Functional Impairments (Reported) Functional Limitations- ADL's Pt unable to lift a 30# box at the grocery store. Functional Limitations- Mobility/Gait Pt ambulates with a slow gait, small step length. Pt knee pain increases after second step when he begins to walk. Personal Factors Other Personal Factors That May Effect Hx Lung replacement secondary Therapy/Recovery to interstitial lung disease, HTN, DM II, Hx C-diff, GERD, Hx pneumonia, Hx skin cancer PT-OP-C Subjective Start: 01/08/19 17:01 Freq: Status: Active Protocol: Document 05/02/19 07:30 AMB (Rec: 05/02/19 07:45 AMB [id number]) OP-PT Subjective Patient Comments Patient Comments Pt is more sore today in his knee PT-OP-D Balance Start: 01/08/19 17:01 Freq: Status: Active Protocol: Document 01/08/19 15:15 DCW (Rec: 01/08/19 17:30 DCW [id number]) OP-PT Balance Assessment Sitting Balance Static Sitting Balance Ability Normal Dynamic Sitting Balance Ability Normal Standing Balance Static Standing Balance Ability Good Dynamic Standing Balance Ability Fair Balance Tests Salazar Balance Test Salazar Balance Test Score 49/56 Salazar Impairment Rating 1 to 19% Impaired (Score 45-55 ) Single Limb Standing Single Limb- Right 8 seconds Single Limb- Left 6 seconds Salazar Balance Assessment Evaluation Sitting to Standing Ability Independent w/out Hands Unsupported Stance Safely- 2 minutes Sitting Unsupported, Feet on Floor Safely- 2 minutes Standing to Sitting Ability Independent, Uncontrolled Transfer Ability Safely, Hand Use Unsupported Stance- Eyes Closed Safely, 10 seconds Unsupported Stance- Eyes Open Independent, 1 minute Reaching Forward Standing Confidently, 10 inches Pick- Up Object From Floor Independent/Safe Look Behind Shoulder - Standing Shifts Weight Well Turning 360 Degrees Turns , < 4 secs Unsupported Stance, Alternating Feet on (I)- 8 Steps in > 20 secs Stair Unsupported Tandem Stance Achieves Tandem Unilateral Leg Stance Lifts Leg/Holds 5-10 secs Total Score Salazar Total Score (out of 56 points) 49 Sampson Fall Scale Copyright Permission PT-OP-E Functional Tests Start: 01/08/19 17:01 Freq: Status: Active Protocol: Document 04/10/19 07:30 AMB (Rec: 04/10/19 12:50 AMB [email or web address]) Functional Tests Dynamic Gait Index (DGI) Score 17 DGI Impairment Rating 20 to <40% Impaired (Score 15- 19) PT-OP-G Mobility & Gait Start: 01/08/19 17:01 Freq: Status: Active Protocol: Document 01/08/19 15:15 DCW (Rec: 01/08/19 17:30 DCW [id number]) OP Mobility Evaluation Transfers Sit to Stand Stand->Sit transfers, pt demonstrates rapid, uncontrolled descent into chair Functional Movements Lifting and Carrying Pt unable to lift 30# box OP Gait Assessment Gait Gait Assistance Required: Independent Distance (Feet) 200 Assistive Devices Assistive Device None Gait Deviations General Gait Pattern Decreased Stride Length Factors Limiting Gait Function Factors Limiting Gait Function Decreased Strength,Poor Balance Comments Gait Comments Pt ambulates with a slow pallavi, minimal ability to change speed with instruction. Stair Climbing Evaluation Evaluation Level of Assist On Stairs Independent Devices Stair Climbing Assistive Devices Left Railing,Right Railing Technique/Endurance Stair Climbing Direction Ascend and Descend Stair Climbing Technique Step to Step Number of Steps Climbed 3 PT-OP-M Strength Start: 01/08/19 17:01 Freq: Status: Active Protocol: Document 04/10/19 07:30 AMB (Rec: 04/10/19 12:50 AMB [email or web address]) Hip Strength Hip Manual Muscle Testing Right Flexion (L2) 4 Good Abduction 4 Good Adduction 4 Good Left Flexion (L2) 4 Good Abduction 4 Good Adduction 4 Good Knee Strength Knee Manual Muscle Testing Right Flexion (S2) 4 Good Extension (L3) 4- Good- Left Flexion (S2) 4+ Good+ Extension (L3) 4 Good PT-OP-Q Treatments Start: 01/08/19 17:01 Freq: Status: Active Protocol: Document 05/02/19 07:30 AMB (Rec: 05/02/19 08:08 AMB [id number]) Cardio Equipment Recumbent Stepper (Sci-Fit) Duration (Minutes) 6 Resistance 7 Seat Position 12 Gym Equipment Shuttle Recovery Bilateral Squats Resistance 75# Shuttle Recovery Platform Stable Reps/Time 2x15 Shuttle Balance Red Details RED fwd. lat Reps/Duration 10 min Comments Fwd staggered stance; side: WBOS & NBOS,head turns Therapeutic Exercises Standing Exercises 2 Standing Exercise Name calf stretch Reps/Minutes 30x2 Comments on IONA Rows Resistance Tband #3 Reps/Minutes 2x10 PT-OP-T Assessment and Plan Start: 01/08/19 17:01 Freq: Status: Active Protocol: Document 05/02/19 07:30 AMB (Rec: 05/02/19 08:08 AMB [id number]) Physical Therapy Assessment Assessment Summary Assessment Darryl was more painful in his knees today. Physical Therapy Plan Next Visit Focus/Plan Next Note Type Treatment Note Next Visit Plan Finalize HEP
--- NOTE | 2019-05-07 12:57 | PT.OTN ---
Current Diagnoses Muscle weakness (generalized) (05/07/19) Lung transplant status (05/07/19) Physical Therapy Treatment Note PT-OP-A Visit Information Start: 01/08/19 17:01 Freq: Status: Active Protocol: Document 05/07/19 07:30 AMB (Rec: 05/07/19 07:45 AMB [id number]) Out-Patient Physical Therapy Visit Information Visit Information Visit Type Treatment Note Visit Start Time 07:30 Visit Stop Time 08:15 Total Visit Minutes 45 Visit Number 25 PT-OP-B Current Condition Start: 01/08/19 17:01 Freq: Status: Active Protocol: Document 01/08/19 15:15 DCW (Rec: 01/08/19 17:30 DCW [id number]) Current Condition History of Current Condition Onset Date 8.5 years s/p lung transplant Current Complaints generalized weakness, fatigue, falls History of Current Condition Pt is an 78 year old male with a complicated medical history , most notably he is eight years s/p lung transplant. Pt reports that ever since his transplant, he has been taking anti-rejection drugs, and I hink they're finally starting to take a toll. Pt reports that over the last two years, he has felt like he is getting weaker and weaker, and my knees are killing me with anything I do. Pt also notes that both his right hip and right shoulder are causing pain most of the time, and he feels weak from the top of my head down to my toes. Pt reports that prior to his transplant, he was told he would need knee replacements, but is now too afraid to have surgery, due to infection and respiratory risk. Pt notes that earlier today, he was unable to lift a 30 pound box at the grocery store, and when he starts walking, my knee hurts by the second step. Prior Treatments and Tests Hx Lung replacement secondary to interstitial lung disease Treatment Goals Patient/Caregiver Goals I would just like to get my arms and legs a little stronger, to make it easier to get around. Prior Functional Status Baseline Function- ADL's Independent Baseline Function- Mobility Independent Current Functional Impairments (Reported) Functional Limitations- ADL's Pt unable to lift a 30# box at the grocery store. Functional Limitations- Mobility/Gait Pt ambulates with a slow gait, small step length. Pt knee pain increases after second step when he begins to walk. Personal Factors Other Personal Factors That May Effect Hx Lung replacement secondary Therapy/Recovery to interstitial lung disease, HTN, DM II, Hx C-diff, GERD, Hx pneumonia, Hx skin cancer PT-OP-C Subjective Start: 01/08/19 17:01 Freq: Status: Active Protocol: Document 05/07/19 07:30 AMB (Rec: 05/07/19 07:45 AMB [id number]) OP-PT Subjective Patient Comments Patient Comments Pt went fishing for two days and is quite sore today in his knees. PT-OP-D Balance Start: 01/08/19 17:01 Freq: Status: Active Protocol: Document 01/08/19 15:15 DCW (Rec: 01/08/19 17:30 DCW [id number]) OP-PT Balance Assessment Sitting Balance Static Sitting Balance Ability Normal Dynamic Sitting Balance Ability Normal Standing Balance Static Standing Balance Ability Good Dynamic Standing Balance Ability Fair Balance Tests Salazar Balance Test Salazar Balance Test Score 49/56 Salazar Impairment Rating 1 to 19% Impaired (Score 45-55 ) Single Limb Standing Single Limb- Right 8 seconds Single Limb- Left 6 seconds Salazar Balance Assessment Evaluation Sitting to Standing Ability Independent w/out Hands Unsupported Stance Safely- 2 minutes Sitting Unsupported, Feet on Floor Safely- 2 minutes Standing to Sitting Ability Independent, Uncontrolled Transfer Ability Safely, Hand Use Unsupported Stance- Eyes Closed Safely, 10 seconds Unsupported Stance- Eyes Open Independent, 1 minute Reaching Forward Standing Confidently, 10 inches Pick- Up Object From Floor Independent/Safe Look Behind Shoulder - Standing Shifts Weight Well Turning 360 Degrees Turns , < 4 secs Unsupported Stance, Alternating Feet on (I)- 8 Steps in > 20 secs Stair Unsupported Tandem Stance Achieves Tandem Unilateral Leg Stance Lifts Leg/Holds 5-10 secs Total Score Salazar Total Score (out of 56 points) 49 Sampson Fall Scale Copyright Permission PT-OP-E Functional Tests Start: 01/08/19 17:01 Freq: Status: Active Protocol: Document 04/10/19 07:30 AMB (Rec: 04/10/19 12:50 AMB [email or web address]) Functional Tests Dynamic Gait Index (DGI) Score 17 DGI Impairment Rating 20 to <40% Impaired (Score 15- 19) PT-OP-G Mobility & Gait Start: 01/08/19 17:01 Freq: Status: Active Protocol: Document 01/08/19 15:15 DCW (Rec: 01/08/19 17:30 DCW [id number]) OP Mobility Evaluation Transfers Sit to Stand Stand->Sit transfers, pt demonstrates rapid, uncontrolled descent into chair Functional Movements Lifting and Carrying Pt unable to lift 30# box OP Gait Assessment Gait Gait Assistance Required: Independent Distance (Feet) 200 Assistive Devices Assistive Device None Gait Deviations General Gait Pattern Decreased Stride Length Factors Limiting Gait Function Factors Limiting Gait Function Decreased Strength,Poor Balance Comments Gait Comments Pt ambulates with a slow pallavi, minimal ability to change speed with instruction. Stair Climbing Evaluation Evaluation Level of Assist On Stairs Independent Devices Stair Climbing Assistive Devices Left Railing,Right Railing Technique/Endurance Stair Climbing Direction Ascend and Descend Stair Climbing Technique Step to Step Number of Steps Climbed 3 PT-OP-M Strength Start: 01/08/19 17:01 Freq: Status: Active Protocol: Document 04/10/19 07:30 AMB (Rec: 04/10/19 12:50 AMB [email or web address]) Hip Strength Hip Manual Muscle Testing Right Flexion (L2) 4 Good Abduction 4 Good Adduction 4 Good Left Flexion (L2) 4 Good Abduction 4 Good Adduction 4 Good Knee Strength Knee Manual Muscle Testing Right Flexion (S2) 4 Good Extension (L3) 4- Good- Left Flexion (S2) 4+ Good+ Extension (L3) 4 Good PT-OP-Q Treatments Start: 01/08/19 17:01 Freq: Status: Active Protocol: Document 05/07/19 07:30 AMB (Rec: 05/07/19 09:16 AMB [email or web address]) Cardio Equipment Recumbent Stepper (Sci-Fit) Duration (Minutes) 6 Resistance 7 Seat Position 12 Gym Equipment Shuttle Balance Red Details BLUE Reps/Duration 10 min Comments Fwd staggered stance; side: WBOS & NBOS,head turns EC Therapeutic Exercises Standing Exercises 2 Standing Exercise Name calf stretch Reps/Minutes 30x2 Comments on IONA hip EXT Side bilateral Equipment Used 3# TB Reps/Minutes 15 x each Comments postural cues Shoulder Extension Resistance #4 t band Reps/Minutes 10x2 Rows Resistance Tband #3 Reps/Minutes 2x10 Shoulder Abduction Standing Exercise Name Abduction Side bilateral Resistance 3# Reps/Minutes x15 Neuro Re-Education Treatment Balance Activities Tandem Stance Details Tandem Stance Surface blue foam Comments with head turns PT-OP-T Assessment and Plan Start: 01/08/19 17:01 Freq: Status: Active Protocol: Document 05/07/19 07:30 AMB (Rec: 05/07/19 09:16 AMB [email or web address]) Physical Therapy Assessment Goals Four Impairment Global weakness Salt [employer]er Goal (LTG) UE and LE MMT to grossly 4+/5 9/4 progress made, but knee continues to be painful/weak LTG Duration 03/10/19 Three Impairment Pt reports increased knee pain when walking Short Term Goal (STG) Pt to tolerate walking for 6 minutes with no reports of increased knee pain. 9/4 knee pain starts almost immediately STG Duration 02/08/19 Two Impairment Pt at an increased falls risk per 15/24 DGI Short Term Goal (STG) Pt to report no falls over a one month period STG Duration MET Fpc Goal (LTG) Pt to score at least 20/24 on DGI LTG Duration MET One Impairment Pt does not have an appropriate home exercise program Short Term Goal (STG) Pt to be independent and compliant with an appropriate HEP STG Duration MET Assessment Summary Assessment Darryl improved his strength and is aware of the HEP that he should be performing. He continues to have knee pain that limits his walking and functional movement. Overall his balance has improved, as shown by his score of 21/24 on the DGI today. Pain was the most limiting factor in his gait today. Physical Therapy Plan Discharge Physical Therapy Discharge Reasons Plateau in Progress
== END 2019-05-07 16:02 | disposition home or self-care (01) ==
LOC: PHYS 07:30
PROVIDERS: Family Provider Internal Medicine; PCP Internal Medicine; Visit Provider Internal Medicine Critical Care Medicine
DX: M62.81 Muscle weakness (generalized) (principal); Z94.2 Lung transplant status
CPT/HCPCS: 97110; 97112; 97162

== ENCOUNTER → 2019-05-16 09:03 | Outpatient (CLI) | payer MEDICARE, SELFPAY ==
[2019-05-16 10:02] LABS: Add Manual Diff / Slide Review NO; Basophils Absolute Auto 0 /uL (0-100); Basophils Percent Auto 0.7 % (0-2); Eosinophils Absolute Auto 0 /uL (0-450); Eosinophils Percent Auto 0.6 % (2-4); Hematocrit 34.3 % (41-53); Hemoglobin 11.5 g/dL (13.5-17.5); Lymphocytes Absolute Auto 1800 /uL (1100-4500); Lymphocytes Percent Auto 28.5 % (25-40); Mean Corpuscular HGB Conc 33.5 % (30-36); Mean Corpuscular Hemoglobin 33.9 PG (26-34); Monocytes Absolute Auto 700 /uL (0-900); Neutrophils Absolute Auto 3700 /uL (1500-7000); Neutrophils Percent Auto 59.2 % (50-75); Platelet Count 170 X10^3/uL (150-400); Red Cell Distribution Width 13.4 % (11.6-14.8); White Blood Cell Count 6.3 X10^3/uL (4.5-11.0)
[2019-05-16 10:55] LABS: Alanine Aminotransferase 28 IU/L (21-72); Albumin 3.4 g/dL (3.5-5.0); Albumin Globulin Ratio 1.4 (1.0-2.8); Alkaline Phosphatase 84 U/L (38-126); Aspartate Aminotransferase 28 IU/L (17-59); BUN Creatinine Ratio 25.6 (6-22); Bilirubin Total 0.5 mg/dL (0.2-1.3); Blood Urea Nitrogen 41 mg/dL (9-20); Calcium 9.4 mg/dL (8.4-10.2); Carbon Dioxide 27 mmol/L (22-32); Chloride 103 mmol/L (98-107); Estimated Glomerular Filt Rate 41.8 mL/min (>60); Globulin 2.4 g/dL (1.7-4.1); Glucose 112 mg/dL (80-110); HEMOLYSIS < 15 (0-50); Magnesium 1.9 mg/dL (1.6-2.3); Potassium 4.6 mmol/L (3.4-5.1); Sodium 139 mmol/L (137-145); Total Protein 5.8 g/dL (6.3-8.2)
[2019-05-18 05:19] LABS: CMV DNA, Quant PCR LOG 10 <2.30 Log IU/mL; CMV DNA, Quant Real Time PCR <200 IU/mL; Source WHOLE BLOOD EDTA
[2019-05-19 08:13] LABS: Tacrolimus 4.1 mcg/L (5.0-20.0)
== END ==
PROVIDERS: Family Provider Internal Medicine; PCP Internal Medicine; Visit Provider Internal Medicine Critical Care Medicine
DX: Z94.2 Lung transplant status (principal)
CPT/HCPCS: 36415; 80053; 80197; 83735; 84100; 85025; 87497

== ENCOUNTER → 2019-06-14 11:20 | Outpatient (CLI) | payer MEDICARE, SELFPAY ==
--- NOTE | 2019-06-14 | DI.RAD.S_ITS ---
PROCEDURE: XR CHEST 2V INDICATIONS: cough/lung transplant recipient TECHNIQUE: 2 views of the chest were acquired. COMPARISON: [facility], , CHEST 2 VIEW, 02/17/2009, 10:44. FINDINGS: Surgical changes and devices: Postoperative changes are seen of the sternum. Additional postoperative clips are seen involving the thorax. Cholecystectomy clips are seen. Lungs and pleura: Lungs are clear. No pleural effusions or pneumothorax. Mediastinum: The cardiac contours are within normal limits. The aorta demonstrates calcification and tortuosity. Bones and chest wall: Age-appropriate bony degenerative changes are seen. No suspicious bony abnormalities. Soft tissues appear unremarkable. IMPRESSION: No acute infiltrates are seen. Postoperative and degenerative changes are seen. Dictated by: Yazan Mcallister M.D. on 06/14/2019 at 11:54 Approved by: Yazan Mcallister M.D. on 06/14/2019 at 11:55
== END ==
PROVIDERS: PCP Internal Medicine; Visit Provider Dermatology
DX: R05 Cough (principal); R63.4 Abnormal weight loss; Z94.2 Lung transplant status
CPT/HCPCS: 71046

== ENCOUNTER → 2020-02-09 07:52 | Outpatient (CLI) | payer MEDICARE, SELFPAY ==
[2020-02-09 08:26] LABS: Add Manual Diff / Slide Review NO; Basophils Absolute Auto 0 /uL (0-100); Basophils Percent Auto 0.5 % (0-2); Eosinophils Absolute Auto 0 /uL (0-450); Eosinophils Percent Auto 0.4 % (2-4); Hematocrit 31.4 % (41-53); Hemoglobin 10.7 g/dL (13.5-17.5); Lymphocytes Absolute Auto 2100 /uL (1100-4500); Mean Corpuscular HGB Conc 34.1 % (30-36); Mean Corpuscular Volume 102.5 fL (80-100); Monocytes Absolute Auto 600 /uL (0-900); Monocytes Percent Auto 7.4 % (3-14); Neutrophils Absolute Auto 5000 /uL (1500-7000); Neutrophils Percent Auto 64.7 % (50-75); Platelet Count 190 X10^3/uL (150-400); Red Blood Cell Count 3.06 X10^6/uL (4.5-5.9); Red Cell Distribution Width 13.6 % (11.6-14.8); White Blood Cell Count 7.7 X10^3/uL (4.5-11.0)
[2020-02-09 08:40] LABS: Alanine Aminotransferase 21 IU/L (<50); Albumin 3.7 g/dL (3.5-5.0); Albumin Globulin Ratio 1.3 (1.0-2.8); Alkaline Phosphatase 118 U/L (38-126); Aspartate Aminotransferase 33 IU/L (17-59); BUN Creatinine Ratio 25.5 (6-22); Bilirubin Total 0.5 mg/dL (0.2-1.3); Blood Urea Nitrogen 50 mg/dL (9-20); Carbon Dioxide 26 mmol/L (22-32); Chloride 107 mmol/L (98-107); Globulin 2.8 g/dL (1.7-4.1); Glucose 128 mg/dL (80-110); HEMOLYSIS < 15 (0-50); Phosphorous 3.4 mg/dL (2.3-3.7); Potassium 4.4 mmol/L (3.4-5.1); Sodium 140 mmol/L (137-145); Total Protein 6.5 g/dL (6.3-8.2)
[2020-02-10 13:32] LABS: Tacrolimus 4.4 ng/mL (2.0-20.0)
[2020-02-11 16:12] LABS: CMV DNA, Quant Real Time PCR Negative (Negative)
== END ==
PROVIDERS: PCP Internal Medicine
DX: Z94.2 Lung transplant status (principal)
CPT/HCPCS: 36415; 80053; 80197; 83735; 84100; 85025; 87497

== ENCOUNTER → 2020-03-11 08:23 | Outpatient (CLI) | payer MEDICARE, SELFPAY ==
[2020-03-11 09:40] LABS: HEMOLYSIS < 15 (0-50); Iron 85 ug/dL (49-181)
[2020-03-11 09:46] LABS: Cholesterol 120 mg/dL (140-199); HDL Cholesterol 45 mg/dL (40-60); LDL Cholesterol Calculated 58 mg/dL (<100); Triglycerides 87 mg/dL (35-150)
[2020-03-11 09:53] LABS: Percent Iron Saturation 27 % (20-50); Total Iron Binding Capacity 315 ug/dL (261-462); Transferrin 225 mg/dL (206-381)
[2020-03-11 10:11] LABS: TSH w/ Reflex to FT4 0.85 uIU/mL (0.47-4.68)
[2020-03-11 11:07] LABS: Microalbumi Creatinin Ratio Ur 18.3 ug/mg CR (<30); Microalbumin Urine Random 2.5 mg/dL (0-1.6)
== END ==
PROVIDERS: PCP Internal Medicine; Referring Provider Internal Medicine; Visit Provider Internal Medicine
DX: E11.9 Type 2 diabetes mellitus without complications (principal); Z94.2 Lung transplant status; I10 Essential (primary) hypertension; D63.1 Anemia in chronic kidney disease
CPT/HCPCS: 36415; 80061; 82043; 82570; 83540; 83550; 84443

== ENCOUNTER → 2020-04-14 08:31 | Outpatient (CLI) | payer MEDICARE, SELFPAY ==
[2020-04-14 10:19] LABS: Add Manual Diff / Slide Review NO; Basophils Absolute Auto 0 /uL (0-100); Basophils Percent Auto 0.7 % (0-2); Eosinophils Absolute Auto 0 /uL (0-450); Eosinophils Percent Auto 0.3 % (2-4); Hemoglobin 10.8 g/dL (13.5-17.5); Lymphocytes Absolute Auto 1800 /uL (1100-4500); Lymphocytes Percent Auto 24.3 % (25-40); Mean Corpuscular HGB Conc 34.7 % (30-36); Mean Corpuscular Hemoglobin 35.3 PG (26-34); Mean Corpuscular Volume 101.6 fL (80-100); Monocytes Absolute Auto 600 /uL (0-900); Monocytes Percent Auto 8.1 % (3-14); Neutrophils Absolute Auto 4900 /uL (1500-7000); Neutrophils Percent Auto 66.6 % (50-75); Platelet Count 153 X10^3/uL (150-400); Red Blood Cell Count 3.05 X10^6/uL (4.5-5.9); Red Cell Distribution Width 13.9 % (11.6-14.8); White Blood Cell Count 7.4 X10^3/uL (4.5-11.0)
[2020-04-14 10:52] LABS: Alanine Aminotransferase 22 IU/L (<50); Albumin 3.5 g/dL (3.5-5.0); Albumin Globulin Ratio 1.4 (1.0-2.8); Alkaline Phosphatase 122 U/L (38-126); Aspartate Aminotransferase 31 IU/L (17-59); BUN Creatinine Ratio 28.6 (6-22); Bilirubin Total 0.5 mg/dL (0.2-1.3); Blood Urea Nitrogen 56 mg/dL (9-20); Calcium 9.9 mg/dL (8.4-10.2); Carbon Dioxide 29 mmol/L (22-32); Chloride 105 mmol/L (98-107); Globulin 2.5 g/dL (1.7-4.1); Glucose 119 mg/dL (80-110); HEMOLYSIS < 15 (0-50); Magnesium 1.9 mg/dL (1.6-2.3); Potassium 4.7 mmol/L (3.4-5.1); Sodium 138 mmol/L (137-145)
[2020-04-14 11:19] LABS: Thyroid Stimulating Hormone 1.96 uIU/mL (0.47-4.68)
[2020-04-14 11:28] LABS: Ferritin 361 ng/mL (18-464)
[2020-04-14 11:58] LABS: Folate 8.5 ng/mL (2.76-20.0); Vitamin B12 692 pg/mL (239-931)
[2020-04-14 20:19] LABS: Vitamin D 25 Hydroxy (D3) 95.3 ng/mL (30.0-100.0)
[2020-04-15 09:39] LABS: Tacrolimus 7.2 ng/mL (2.0-20.0)
[2020-04-16 13:09] LABS: CMV DNA, Quant Real Time PCR Negative (Negative)
[2020-04-16 16:11] LABS: Albumin 3.1 g/dL (2.9-4.4); Alpha-1-Globulin 0.2 g/dL (0.0-0.4); Alpha-2-Globulin 0.8 g/dL (0.4-1.0); Gamma Globulin 0.8 g/dL (0.4-1.8); Globulin Total 2.6 g/dL (2.2-3.9); Immunoglobulin A, Serum 192 mg/dL (61-437); Immunoglobulin G,Serum 674 mg/dL (603-1613); Immunoglobulin M, Serum 194 mg/dL (15-143); Protein, Total 5.7 g/dL (6.0-8.5)
[2020-04-17 15:08] LABS: Free Kappa Lt Chains, Serum 51.9 mg/L (3.3-19.4); Free Lambda Lt Chains,Serum 41.2 mg/L (5.7-26.3)
== END ==
PROVIDERS: PCP Internal Medicine; Referring Provider Internal Medicine Nephrology; Visit Provider Internal Medicine Nephrology
DX: D64.9 Anemia, unspecified (principal); N17.9 Acute kidney failure, unspecified; D53.9 Nutritional anemia, unspecified; E55.9 Vitamin D deficiency, unspecified; D51.9 Vitamin B12 deficiency anemia, unspecified; D52.9 Folate deficiency anemia, unspecified; R53.83 Other fatigue; E03.9 Hypothyroidism, unspecified
CPT/HCPCS: 36415; 80053; 80069; 80197; 82306; 82607; 82728; 82746; 82784; 83735; 83883; 84153; 84154; 84155; 84165; 84443; 85025; 86334; 87497

== ENCOUNTER → 2020-04-23 09:13 | Outpatient (CLI) | payer MEDICARE, SELFPAY ==
--- NOTE | 2020-04-23 | DI.US.S_ITS ---
PROCEDURE: US RENAL COMPLETE INDICATIONS: KIDNEY FAILURE TECHNIQUE: Real-time scanning was performed of the kidneys and bladder, with image documentation. COMPARISON: None. FINDINGS: Kidneys: Kidneys are normal in size. Right kidney measures 11.3 cm long; left kidney measures 12.1 cm long. Right renal cortical thickness is 6 mm cm; left renal cortical thickness is 1.3 cm cm. Renal cortical echotexture is normal. No hydronephrosis or nephrolithiasis. No suspicious solid mass lesions. Note is made of cysts present at the right kidney measuring up to 3.2 x 2.6 x 3.5 cm laterally and 2.5 x 3.6 x 2.6 cm medially. Bladder: Pre-void bladder volume is 51 mL. Post-void residual is 4.0 mL. Pre-void images demonstrate no intraluminal masses or stones. On pre-void images, neither ureteral jets are noted with color Doppler interrogation. (Of note, ureteral jets may not be detectable in up to 25% of cases due to insufficient differences in specific gravity between ureteral and bladder urine). Prostate gland appears prominent beneath the bladder. Miscellaneous: No free pelvic fluid. IMPRESSION: Asymmetrically small and thin cortex right kidney, with 2 associated renal cortical cysts measuring up to 3.5 and 3.6 cm. Small prevoid bladder volume, normal bladder emptying. No bladder calculus noted. Moderate prosthetic hypertrophy. Dictated by: Harsha Feliciano M.D. on 04/23/2020 at 11:09 Approved by: Harsha Feliciano M.D. on 04/23/2020 at 11:13
== END ==
PROVIDERS: PCP Internal Medicine; Referring Provider Internal Medicine; Visit Provider Internal Medicine Nephrology
DX: N17.9 Acute kidney failure, unspecified (principal); N28.1 Cyst of kidney, acquired; N40.0 Benign prostatic hyperplasia without lower urinary tract symptoms
CPT/HCPCS: 76770

== ENCOUNTER → 2020-05-26 07:55 | Outpatient (CLI) | payer MEDICARE, SELFPAY ==
--- NOTE | 2020-05-26 | DI.ECHO.S_ITS ---
[facility] +---------+ : : [address] [place] : : : : [id number] : : : : Phone: [phone]+ Echocardiogram Report + + :Name: YIMI SINGH Study Date: 05/26/2020 Height: 70 in : :[facility] Weight: 195 lb : : Gender: Male BSA: 2.1 m2 : :: 1940 Age: 79 yrs BP: 164/87 mmHg: :Reason For Study: EDEMA : :Ordering Physician: NATANAEL, : :ARNOL Performed By: Alfreda Acevedo : :Referring: ARNOL SANTOYO : + + Interpretation Summary Left ventricular systolic function is normal with an estimated ejection fraction of 55 to 60% without focal wall motion abnormalities. There is borderline LVH with probable significant diastolic dysfunction and elevated filling pressures. The right ventricle is at the upper limits of normal in size with mild to moderately reduced systolic function. Pulmonary artery systolic pressure cannot be estimated but the CVP is estimated to be around 3 mmHg. There is severe left atrial enlargement. There is mild to moderate mitral regurgitation and mild tricuspid regurgitation. The aortic valve is mildly calcified but no significant aortic stenosis. There is mild aortic regurgitation. The ascending aorta is mildly enlarged. Procedure: A two-dimensional transthoracic echocardiogram with color flow and Doppler was performed. The study quality was technically adequate. There is no prior echocardiogram noted for this patient. The heart rate ranged between 54-68 bpm during the study. Left Ventricle: The left ventricle is normal in size. The estimated left ventricular end diastolic volume is 116 ml. Proximal septal thickening is noted. There is borderline concentric left ventricular hypertrophy. Left ventricular systolic function is normal without focal wall motion abnormalities. The ejection fraction is estimated to be 55-60%. Diastolic parameters suggest a pseudonormalization pattern, consistent with probable elevated filling pressures. Right Ventricle: The right ventricle is at the upper limits of normal in size. Right ventricular systolic function is mild to moderately reduced. Atria: The left atrium is severely dilated. Right atrial size is normal. The interatrial septum is intact with no evidence for an atrial septal defect. There is no Doppler evidence for an interatrial shunt. Mitral Valve: There is moderate mitral annular calcification. There is mild to moderate mitral regurgitation. Aortic Valve: The aortic valve is trileaflet. There is mild aortic valve sclerosis. The aortic valve opens well. There is mildly reduced leaflet mobility. There is no hemodynamically significant valvular aortic stenosis. There is mild aortic regurgitation. Tricuspid Valve: The tricuspid valve is not well visualized, but is grossly normal. There is mild tricuspid regurgitation. Pulmonary artery pressures cannot be estimated because of the lack of a measurable TR jet velocity but the IVC suggests a CVP of around 3 mmHg. Pulmonic Valve: The pulmonic valve leaflets are thin and pliable; valve motion is normal. There is no pulmonic valvular regurgitation. Great Vessels: The aortic root is normal size. The ascending aorta is mildly enlarged. The IVC is of normal diameter and collapses greater than 50% with a sniff. This suggests a low right atrial pressure of 3 mm Hg. Pericardium/ Pleura There is no pericardial effusion. There is no pleural effusion. MMode/2D Measurements & Calculations LVIDd: 4.5 cm LVOT diam: 2.0 cm LVIDs: 3.3 cm Ao root diam: 3.8 cm FS: 26.1 % asc Aorta Diam: 3.6 cm EPSS: 1.6 cm IVSd: 1.2 cm LVPWd: 0.89 cm LV noguera. diameter/BSA (cm/m^2): 2.2 LV sys. diameter/BSA (cm/m^2): 1.6 LA A2 area: 36.1 cm2 RA long axis: 5.2 cm LA A4 area: 33.7 cm2 RA area: 14.9 cm2 LA length (vol): 7.3 cm RA vol: 36.4 ml LA vol: 141.7 ml RA : 17.6 ml/m2 LA vol index: 68.6 ml/m2 IVC diam: 1.7 cm RVD1 (basal): 3.8 cm TAPSE: 1.4 cm Doppler Measurements & Calculations Ao V2 max: 174.8 cm/sec LVOT Max Giancarlo: 75.8 cm/sec Ao V2 mean: 114.8 cm/sec LV V1 max P.3 mmHg Ao max P.2 mmHg LV V1 VTI: 18.8 cm Ao mean P.9 mmHg TAYLOR(I,D): 1.4 cm2 Ao V2 VTI: 40.2 cm TAYLOR(V,D): 1.3 cm2 sev ratio: 0.47 TAYLOR indexed to BSA (cm^2/m^2): 0.69 MV E max giancarlo: 108.2 cm/sec TR max giancarlo: 216.8 cm/sec MV A max giancarlo: 48.9 cm/sec TR max P.8 mmHg MV E/A: 2.2 PA V2 max: 72.6 cm/sec Med Peak E' Giancarlo: 4.4 cm/sec PA V2 mean: 46.1 cm/sec E/E' med: 24.8 PA mean P.0 mmHg Lat Peak E' Giancarlo: 10.4 cm/sec PA pr(Accel): 10.5 mmHg E/E' lat: 10.4 E/e' average: 17.6 MV dec time: 0.22 sec MR ERO: 0.20 cm2 MR PISA: 3.4 cm2 SV(LVOT): 57.7 ml MR flow rate: 127.0 cm3/sec MR PISA radius: 0.74 cm Reading Physician:02:49 PM
== END ==
PROVIDERS: PCP Internal Medicine
DX: I08.3 Combined rheumatic disorders of mitral, aortic and tricuspid valves (principal); I77.89 Other specified disorders of arteries and arterioles; R60.9 Edema, unspecified
CPT/HCPCS: 93306

== ENCOUNTER → 2020-06-15 09:13 | Outpatient (CLI) | payer MEDICARE, SELFPAY ==
[2020-06-15 10:35] LABS: Add Manual Diff / Slide Review NO; Basophils Absolute Auto 0 /uL (0-100); Basophils Percent Auto 0.5 % (0-2); Eosinophils Absolute Auto 0 /uL (0-450); Eosinophils Percent Auto 0.3 % (2-4); Hematocrit 29.4 % (41-53); Hemoglobin 9.8 g/dL (13.5-17.5); Lymphocytes Absolute Auto 1700 /uL (1100-4500); Lymphocytes Percent Auto 24.4 % (25-40); Mean Corpuscular HGB Conc 33.4 % (30-36); Mean Corpuscular Hemoglobin 34.2 PG (26-34); Mean Corpuscular Volume 102.6 fL (80-100); Monocytes Absolute Auto 500 /uL (0-900); Monocytes Percent Auto 7.2 % (3-14); Neutrophils Absolute Auto 4700 /uL (1500-7000); Neutrophils Percent Auto 67.6 % (50-75); Platelet Count 173 X10^3/uL (150-400); Red Blood Cell Count 2.87 X10^6/uL (4.5-5.9); Red Cell Distribution Width 13.8 % (11.6-14.8); White Blood Cell Count 6.9 X10^3/uL (4.5-11.0)
[2020-06-15 10:46] LABS: Alanine Aminotransferase 20 IU/L (<50); Albumin 3.3 g/dL (3.5-5.0); Albumin Globulin Ratio 1.2 (1.0-2.8); Alkaline Phosphatase 127 U/L (38-126); Aspartate Aminotransferase 29 IU/L (17-59); BUN Creatinine Ratio 26.8 (6-22); Bilirubin Total 0.4 mg/dL (0.2-1.3); Blood Urea Nitrogen 53 mg/dL (9-20); Calcium 9.1 mg/dL (8.4-10.2); Carbon Dioxide 26 mmol/L (22-32); Chloride 109 mmol/L (98-107); Estimated Glomerular Filt Rate 32.6 mL/min (>60); Globulin 2.7 g/dL (1.7-4.1); Glucose 110 mg/dL (80-110); HEMOLYSIS < 15 (0-50); Magnesium 1.8 mg/dL (1.6-2.3); Phosphorous 3.3 mg/dL (2.3-3.7); Potassium 4.9 mmol/L (3.4-5.1); Sodium 138 mmol/L (137-145)
[2020-06-16 06:09] LABS: Tacrolimus 5.2 ng/mL (2.0-20.0)
[2020-06-17 17:23] LABS: CMV DNA, Quant Real Time PCR Negative (Negative)
== END ==
PROVIDERS: PCP Internal Medicine
DX: E83.42 Hypomagnesemia (principal); Z48.24 Encounter for aftercare following lung transplant; Z79.899 Other long term (current) drug therapy
CPT/HCPCS: 36415; 80053; 80197; 83735; 84100; 85025; 87497

== ENCOUNTER → 2020-07-13 15:33 | Outpatient (CLI) | payer MEDICARE, SELFPAY ==
[2020-07-13 18:02] LABS: Albumin 3.4 g/dL (3.5-5.0); BUN Creatinine Ratio 23.1 (6-22); Blood Urea Nitrogen 52 mg/dL (9-20); Calcium 9.9 mg/dL (8.4-10.2); Carbon Dioxide 29 mmol/L (22-32); Chloride 105 mmol/L (98-107); Estimated Glomerular Filt Rate 28.1 mL/min (>60); Glucose 134 mg/dL (80-110); HEMOLYSIS < 15 (0-50); Phosphorous 4.8 mg/dL (2.3-3.7); Potassium 5.3 mmol/L (3.4-5.1); Sodium 137 mmol/L (137-145)
== END ==
PROVIDERS: PCP Internal Medicine; Referring Provider Internal Medicine Nephrology; Visit Provider Internal Medicine Nephrology
DX: N17.9 Acute kidney failure, unspecified (principal)
CPT/HCPCS: 36415; 80069

== ENCOUNTER → 2020-08-03 08:35 | Outpatient (CLI) | payer MEDICARE, SELFPAY ==
[2020-08-03 10:08] LABS: Hematocrit 28.8 % (41-53); Hemoglobin 9.7 g/dL (13.5-17.5); Mean Corpuscular HGB Conc 33.5 % (30-36); Mean Corpuscular Hemoglobin 34.6 PG (26-34); Mean Corpuscular Volume 103.2 fL (80-100); Platelet Count 173 X10^3/uL (150-400); Red Blood Cell Count 2.79 X10^6/uL (4.5-5.9); Red Cell Distribution Width 14.8 % (11.6-14.8); White Blood Cell Count 8.8 X10^3/uL (4.5-11.0)
[2020-08-03 10:45] LABS: Alanine Aminotransferase 37 IU/L (<50); Albumin 3.2 g/dL (3.5-5.0); Albumin Globulin Ratio 1.2 (1.0-2.8); Alkaline Phosphatase 166 U/L (38-126); Aspartate Aminotransferase 40 IU/L (17-59); BUN Creatinine Ratio 28.7 (6-22); Bilirubin Total 0.3 mg/dL (0.2-1.3); Blood Urea Nitrogen 50 mg/dL (9-20); Carbon Dioxide 25 mmol/L (22-32); Chloride 108 mmol/L (98-107); Estimated Glomerular Filt Rate 37.8 mL/min (>60); Globulin 2.6 g/dL (1.7-4.1); Glucose 111 mg/dL (80-110); HEMOLYSIS < 15 (0-50); Phosphorous 3.3 mg/dL (2.3-3.7); Potassium 5.3 mmol/L (3.4-5.1); Sodium 137 mmol/L (137-145); Total Protein 5.8 g/dL (6.3-8.2)
[2020-08-03 11:18] LABS: Neutrophils Absolute Manual 6600 /uL (3000-5900); Total Cells Counted 100
[2020-08-03 11:20] LABS: Macrocytosis 1+; Platelet Estimate Adequate on smear
[2020-08-04 12:27] LABS: Tacrolimus 3.5 ng/mL (2.0-20.0)
== END ==
PROVIDERS: PCP Internal Medicine; Referring Provider Internal Medicine Nephrology; Visit Provider Internal Medicine Nephrology
DX: Z94.2 Lung transplant status (principal); N18.32 Chronic kidney disease, stage 3b; N42.81 Prostatodynia syndrome
CPT/HCPCS: 36415; 80053; 80069; 80197; 83735; 85025; 87496

== ENCOUNTER → 2020-09-08 07:25 | Outpatient (CLI) | payer MEDICARE, SELFPAY ==
[2020-09-08 08:32] LABS: Add Manual Diff / Slide Review NO; Basophils Absolute Auto 0 /uL (0-100); Basophils Percent Auto 0.5 % (0-2); Eosinophils Absolute Auto 100 /uL (0-450); Eosinophils Percent Auto 1.1 % (2-4); Hematocrit 29.5 % (41-53); Hemoglobin 9.8 g/dL (13.5-17.5); Lymphocytes Absolute Auto 1900 /uL (1100-4500); Lymphocytes Percent Auto 24.1 % (25-40); Mean Corpuscular HGB Conc 33.3 % (30-36); Mean Corpuscular Hemoglobin 34.2 PG (26-34); Mean Corpuscular Volume 102.7 fL (80-100); Monocytes Absolute Auto 1200 /uL (0-900); Monocytes Percent Auto 15.5 % (3-14); Neutrophils Absolute Auto 4500 /uL (1500-7000); Neutrophils Percent Auto 58.8 % (50-75); Platelet Count 158 X10^3/uL (150-400); Red Blood Cell Count 2.87 X10^6/uL (4.5-5.9); Red Cell Distribution Width 14.2 % (11.6-14.8); White Blood Cell Count 7.7 X10^3/uL (4.5-11.0)
[2020-09-08 09:01] LABS: Alanine Aminotransferase 27 IU/L (<50); Albumin 3.2 g/dL (3.5-5.0); Albumin Globulin Ratio 1.2 (1.0-2.8); Alkaline Phosphatase 146 U/L (38-126); Aspartate Aminotransferase 30 IU/L (17-59); Bilirubin Total 0.2 mg/dL (0.2-1.3); Blood Urea Nitrogen 51 mg/dL (9-20); Calcium 9.2 mg/dL (8.4-10.2); Carbon Dioxide 24 mmol/L (22-32); Chloride 111 mmol/L (98-107); Estimated Glomerular Filt Rate 34.4 mL/min (>60); Globulin 2.6 g/dL (1.7-4.1); Glucose 96 mg/dL (80-110); HEMOLYSIS < 15 (0-50); Magnesium 2.2 mg/dL (1.6-2.3); Phosphorous 4.5 mg/dL (2.3-3.7); Potassium 5.3 mmol/L (3.4-5.1); Sodium 139 mmol/L (137-145); Total Protein 5.8 g/dL (6.3-8.2)
[2020-09-09 08:36] LABS: Tacrolimus 4.5 ng/mL (2.0-20.0)
[2020-09-09 16:39] LABS: CMV DNA, Quant Real Time PCR Negative (Negative)
== END ==
PROVIDERS: PCP Internal Medicine; Referring Provider Internal Medicine; Visit Provider Internal Medicine Pulmonary Disease
DX: E83.42 Hypomagnesemia (principal); Z94.2 Lung transplant status
CPT/HCPCS: 36415; 80053; 80197; 83735; 84100; 85025; 87497

== ENCOUNTER 2020-09-18 12:11 | Emergency (ER) | payer MEDICARE, SELFPAY ==
[2020-09-18] VITALS (16 sets, daily range): BP systolic 101–162; BP diastolic 54–77; PULSE 84–103; RESP 15–24; TEMP 36.9–38.8; O2SAT 95–99; BMI 27.8
--- NOTE | 2020-09-18 12:25 | DI.RAD.S_ITS ---
PROCEDURE: XR CHEST 1V INDICATIONS: suspected sepsis TECHNIQUE: One view of the chest was acquired. COMPARISON: [facility], CR, XR CHEST 2V, 06/14/2019, 11:31. FINDINGS: Surgical changes and devices: Post sternotomy changes are seen. Mediastinal clips are seen. Right upper quadrant abdominal clips are also seen. Lungs and pleura: An incomplete inspiratory result is noted, causing a crowded appearance to the lung markings. No focal infiltrates are seen. No pneumothorax or significant pleural effusions are seen. Mediastinum: Mediastinal contours appear normal. Heart size is normal. Bones and chest wall: No suspicious bony lesions. Age-appropriate bony degenerative changes are seen. Overlying soft tissues appear unremarkable. IMPRESSION: Limited portable chest examination, without a significant cardiopulmonary abnormality identified. No focal infiltrates are seen. If clinically appropriate, a short-term followup chest series (with PA and lateral views) performed in deep inspiration or dedicated chest CT would be suggested for further evaluation. Dictated by: Yazan Mcallister M.D. on 09/18/2020 at 12:14 Approved by: Yazan Mcallister M.D. on 09/18/2020 at 12:15
--- NOTE | 2020-09-18 12:32 | ED_ITS ---
HPI - Fall General Chief Complaint: Fall Stated Complaint: Lt arm injury Time Seen by Provider: 09/18/20 12:32 History of Present Illness HPI Narrative: For evaluation of a skin tear on his left forearm. 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 He also has diabetes, hypothyroidism cardiac disease and high blood pressure. In questioning how he developed a skin tear turns out that he had a syncopal or near syncopal episode earlier today. He describes his right knee simply giving out on him and waking up on the floor with the skin tear. He does not think that he actually lost consciousness but it isn't entirely sure. He does not describe palpitations, exertional dyspnea, chest pain acute headache or new weakness preceding the fall/near syncope. He was noted to be febrile on arrival and he was unaware of this as well. He states he has been in his usual state of health noted some mild increased lower extremity edema over the last couple of weeks to months that has responded to elevating his feet while he is in bed. He typically goes to [place] for the winter but chose to stay up in [place] due to travel concerns in a pandemic. He typically follows up with his transplant physicians yearly and has not had any recent issues of which he is aware. Related Data Home Medications Medication Instructions Recorded Confirmed azithromycin 500 mg PO DIRECTED 09/18/20 09/18/20 carvedilol 3.125 mg PO BID 09/18/20 09/18/20 itraconazole 100 mg PO BID 09/18/20 09/18/20 levothyroxine 137 mcg PO QAM 09/18/20 09/18/20 prednisone 5 mg PO DAILY 09/18/20 09/18/20 sitagliptin [Januvia] 50 mg PO DAILY 09/18/20 09/18/20 sulfamethoxazole-trimethoprim 0.5 tab PO DIRECTED 09/18/20 09/18/20 tacrolimus 0.5 mg PO QPM 09/18/20 09/18/20 tacrolimus 1 mg PO QAM 09/18/20 09/18/20 valganciclovir 450 mg PO DAILY 09/18/20 09/18/20 Allergies Allergy/AdvReac Type Severity Reaction Status Date / Time No Known Drug Allergies Allergy Verified 09/18/20 12:38 Review of Systems Review of Systems Narrative: Remainder of review of systems including constitutional, ENT, cardiovascular, respiratory, GI, , musculoskeletal, skin, neurologic and psychiatric systems reviewed and are unremarkable except as noted in HPI. Patient History Medical History (Updated 09/18/20 @ 17:06 by Nellie Esparza MD) Anemia Coronary artery disease Diabetes Hyperlipidemia Hypertension Tubular adenoma of colon Surgical History H/O lung transplant Social History marital status: household members: spouse Smoking Status: Never smoker alcohol intake: current Smoking Status: Never smoker Exam Narrative Exam Narrative: General: in no acute distress. Able to give a complete and coherent history. Well-nourished well-developed, does not appear acutely toxic HEENT: Moist mucous membranes, normal sclera with reactive pupils, Neck: No JVD, supple, no cervical adenopathy Respiratory: Lungs are clear to auscultation, no wheezing no rales no rhonchi. Full and symmetrical air movement Cardiac: Regular rate and rhythm, 2/6 diastolic murmur without bruits Abdomen: Soft, nontender good bowel tones, no flank pain Skin: Warm and dry, no rashes. Quite thin secondary to chronic prednisone with chronic bruising. Large left forearm skin tear without underlying injury or bony tenderness. No evidence of cellulitis on exam to suggest a source for fever Neurologic: Globally weak but Grossly neurologically intact with no obvious asymmetries or abnormalities, Extremities: Small abrasion to the right knee without knee tenderness or instability. Aside from the forearm as mentioned no other trauma appreciated, well perfused. 3+ edema from knees down without chronic venous stasis changes Psych: Cooperative, appropriate insight and affect Initial Vital Signs Initial Vital Signs: Vital Signs Temperature 101.9 F H 09/18/20 12:27 Pulse Rate 103 H 09/18/20 12:27 Respiratory Rate 18 09/18/20 12:27 Blood Pressure 162/77 H 09/18/20 12:27 Pulse Oximetry 96 09/18/20 12:27 Course Orders Ordered: ED Orders 09/18/20 12:23 COVID19 Stat 09/18/20 12:25 XR chest 1V Stat EKG-12 Lead Stat RT Consult Eval and Treat Now 09/18/20 12:35 Complete Blood Count AUTO DIFF Stat Comprehensive Metabolic Panel Stat Lactate (Lactic Acid) Stat Lipase Stat NT-proBNP (BNP-Adult 18+) Stat Partial Thromboplastin Time Stat Procalcitonin Stat Prothrombin Time INR Stat Troponin I Stat 09/18/20 13:05 Blood Culture Stat 09/18/20 14:17 Urine Culture Stat 09/18/20 15:11 CT chest wo con Stat 09/18/20 15:28 Lactate (Lactic Acid) Stat Troponin I Stat Discontinued Medications Acetaminophen (Acetaminophen 325 Mg Tablet) 650 mg PO NOW ONE Stop: 09/18/20 12:57 Last Admin: 09/18/20 12:59 Dose: 650 mg Documented by: ELPIDIO Sodium Chloride (Normal Saline 0.9%) 1,000 mls @ 1,000 mls/hr IV BOLUS ONE Stop: 09/18/20 13:24 Last Infusion: 09/18/20 14:23 Dose: 0 mls/hr Documented by: Admin: 09/18/20 12:59 Dose: 1,000 mls/hr Documented by: ELPIDIO Sodium Chloride (Normal Saline 0.9%) 500 mls @ 1,000 mls/hr IV BOLUS ONE Stop: 09/18/20 14:31 Last Infusion: 09/18/20 14:59 Dose: 0 mls/hr Documented by: Admin: 09/18/20 14:24 Dose: 1,000 mls/hr Documented by: JARROD Vital Signs Vital signs: Vital Signs - 8 hr 09/18/20 12:27 09/18/20 12:59 09/18/20 13:59 Temperature 101.9 F H 101 F H Pulse Rate 103 H 90 Respiratory Rate 18 16 Blood Pressure 162/77 H Pulse Oximetry 96 09/18/20 14:00 09/18/20 14:12 09/18/20 14:15 Temperature 98.5 F 98.5 F Pulse Rate 89 102 H Respiratory Rate 15 Blood Pressure Pulse Oximetry 98 09/18/20 14:30 09/18/20 14:45 09/18/20 15:00 Temperature Pulse Rate 93 H 88 84 Respiratory Rate 20 15 18 Blood Pressure 153/66 H 136/57 L 110/56 L Pulse Oximetry 99 97 09/18/20 15:15 09/18/20 15:30 09/18/20 15:55 Temperature Pulse Rate 87 87 97 H Respiratory Rate 17 17 19 Blood Pressure 101/54 L 117/58 L Pulse Oximetry 97 98 95 09/18/20 16:00 09/18/20 16:15 09/18/20 16:30 Temperature 100.3 F H Pulse Rate 87 90 90 Respiratory Rate 19 23 19 Blood Pressure Pulse Oximetry 98 97 96 09/18/20 16:45 Temperature Pulse Rate 90 Respiratory Rate 24 Blood Pressure 128/65 Pulse Oximetry 98 MDM - Fall Medical Records Attestation: I reviewed the patient's medical records. Lab Data Attestation: I reviewed the patient's lab results. Lab results narrative: Stable anemia, mild thrombocytopenia Slight renal insufficiency with a jump from 1.89-2.25 and creatinine Urine dip is negative Result diagrams: 09/18/20 12:35 09/18/20 12:35 Labs: Lab Results 09/18/20 09/18/20 09/18/20 Range/Units 12:23 12:35 12:35 WBC 7.1 (4.5-11.0) X10^3/uL RBC 2.90 L (4.5-5.9) X10^6/uL Hgb 9.9 L (13.5-17.5) g/dL Hct 29.7 L (41-53) % MCV 102.3 H (80-100) fL MCH 34.0 (26-34) PG MCHC 33.2 (30-36) % RDW 14.1 (11.6-14.8) % Plt Count 124 L (150-400) X10^3/uL Neut % (Auto) 72.5 (50-75) % Lymph % (Auto) 10.3 L (25-40) % [place] % (Auto) 15.6 H (3-14) % Eos % (Auto) 0.9 L (2-4) % Baso % (Auto) 0.7 (0-2) % Neut # (Auto) 5200 (8874-1608) /uL Lymph # (Auto) 700 L (0513-2744) /uL [place] # (Auto) 1100 H (0-900) /uL Eos # (Auto) 100 (0-450) /uL Baso # (Auto) 0 (0-100) /uL RBC Morphology Not Reportable Macrocytosis 1+ H PT 11.5 (10.1-12.7) SECONDS INR 1.0 (0.9-1.3) APTT 26 L (26.4-36.2) SECONDS Sodium (137-145) mmol/L Potassium (3.4-5.1) mmol/L Chloride (98-107) mmol/L Carbon Dioxide (22-32) mmol/L BUN (9-20) mg/dL Creatinine (0.66-1.25) mg/dL Estimated GFR (>60) mL/min BUN/Creatinine Ratio (6-22) Glucose (80-110) mg/dL Lactate (0.7-2.1) mmol/L Calcium (8.4-10.2) mg/dL Total Bilirubin (0.2-1.3) mg/dL AST (17-59) IU/L ALT (<50) IU/L Alkaline Phosphatase (38-126) U/L Troponin I (0.01-0.034) ng/mL NT-Pro-B Natriuret Pep (<450) pg/mL Total Protein (6.3-8.2) g/dL Albumin (3.5-5.0) g/dL Globulin (1.7-4.1) g/dL Albumin/Globulin Ratio (1.0-2.8) Lipase (23-300) U/L Procalcitonin (<0.5) ng/mL SARS-CoV-2 (PCR) Negative (Negative) 09/18/20 09/18/20 09/18/20 Range/Units 12:35 12:35 12:35 WBC (4.5-11.0) X10^3/uL RBC (4.5-5.9) X10^6/uL Hgb (13.5-17.5) g/dL Hct (41-53) % MCV (80-100) fL MCH (26-34) PG MCHC (30-36) % RDW (11.6-14.8) % Plt Count (150-400) X10^3/uL Neut % (Auto) (50-75) % Lymph % (Auto) (25-40) % [place] % (Auto) (3-14) % Eos % (Auto) (2-4) % Baso % (Auto) (0-2) % Neut # (Auto) (3766-0881) /uL Lymph # (Auto) (0436-1234) /uL [place] # (Auto) (0-900) /uL Eos # (Auto) (0-450) /uL Baso # (Auto) (0-100) /uL RBC Morphology Macrocytosis PT (10.1-12.7) SECONDS INR (0.9-1.3) APTT (26.4-36.2) SECONDS Sodium 137 (137-145) mmol/L Potassium 4.8 (3.4-5.1) mmol/L Chloride 109 H (98-107) mmol/L Carbon Dioxide 26 (22-32) mmol/L BUN 49 H (9-20) mg/dL Creatinine 2.25 H (0.66-1.25) mg/dL Estimated GFR 28.1 L (>60) mL/min BUN/Creatinine Ratio 21.8 (6-22) Glucose 103 (80-110) mg/dL Lactate 1.3 (0.7-2.1) mmol/L Calcium 9.1 (8.4-10.2) mg/dL Total Bilirubin 0.4 (0.2-1.3) mg/dL AST 37 (17-59) IU/L ALT 25 (<50) IU/L Alkaline Phosphatase 94 (38-126) U/L Troponin I (0.01-0.034) ng/mL NT-Pro-B Natriuret Pep (<450) pg/mL Total Protein 6.1 L (6.3-8.2) g/dL Albumin 3.4 L (3.5-5.0) g/dL Globulin 2.7 (1.7-4.1) g/dL Albumin/Globulin Ratio 1.3 (1.0-2.8) Lipase 158 (23-300) U/L Procalcitonin 0.09 (<0.5) ng/mL SARS-CoV-2 (PCR) (Negative) 09/18/20 09/18/20 09/18/20 Range/Units 12:35 15:28 15:28 WBC (4.5-11.0) X10^3/uL RBC (4.5-5.9) X10^6/uL Hgb (13.5-17.5) g/dL Hct (41-53) % MCV (80-100) fL MCH (26-34) PG MCHC (30-36) % RDW (11.6-14.8) % Plt Count (150-400) X10^3/uL Neut % (Auto) (50-75) % Lymph % (Auto) (25-40) % [place] % (Auto) (3-14) % Eos % (Auto) (2-4) % Baso % (Auto) (0-2) % Neut # (Auto) (6842-1490) /uL Lymph # (Auto) (0689-9613) /uL [place] # (Auto) (0-900) /uL Eos # (Auto) (0-450) /uL Baso # (Auto) (0-100) /uL RBC Morphology Macrocytosis PT (10.1-12.7) SECONDS INR (0.9-1.3) APTT (26.4-36.2) SECONDS Sodium (137-145) mmol/L Potassium (3.4-5.1) mmol/L Chloride (98-107) mmol/L Carbon Dioxide (22-32) mmol/L BUN (9-20) mg/dL Creatinine (0.66-1.25) mg/dL Estimated GFR (>60) mL/min BUN/Creatinine Ratio (6-22) Glucose (80-110) mg/dL Lactate 1.3 (0.7-2.1) mmol/L Calcium (8.4-10.2) mg/dL Total Bilirubin (0.2-1.3) mg/dL AST (17-59) IU/L ALT (<50) IU/L Alkaline Phosphatase (38-126) U/L Troponin I 0.038 H 0.040 H (0.01-0.034) ng/mL NT-Pro-B Natriuret Pep 1780 H (<450) pg/mL Total Protein (6.3-8.2) g/dL Albumin (3.5-5.0) g/dL Globulin (1.7-4.1) g/dL Albumin/Globulin Ratio (1.0-2.8) Lipase (23-300) U/L Procalcitonin (<0.5) ng/mL SARS-CoV-2 (PCR) (Negative) Urine Dip Bedside Urine Glucose Negative Bedside Urine Bilirubin - Negative Bedside Urine Ketone - Negative Bedside Urine Occult Blood - Negative Bedside Urine Protein - Negative Bedside Urine Urobilinogen - Negative Bedside Urine Nitrite - Negative Bedside Urine Leukocytes - Negative Esterase Imaging Data Chest x-ray: Radiologist's Impression: FINDINGS: Surgical changes and devices: Post sternotomy changes are seen. Mediastinal clips are seen. Right upper quadrant abdominal clips are also seen. Lungs and pleura: An incomplete inspiratory result is noted, causing a crowded appearance to the lung markings. No focal infiltrates are seen. No pneumothorax or significant pleural effusions are seen. Mediastinum: Mediastinal contours appear normal. Heart size is normal. Bones and chest wall: No suspicious bony lesions. Age-appropriate bony degenerative changes are seen. Overlying soft tissues appear unremarkable. IMPRESSION: Limited portable chest examination, without a significant cardiopulmonary abnormality identified. No focal infiltrates are seen. If clinically appropriate, a short-term followup chest series (with PA and lateral views) performed in deep inspiration or dedicated chest CT would be suggested for further evaluation. Dictated by: Yazan Mcallister M.D. on 09/18/2020 at 12:[address]: Radiologist's Impression: FINDINGS: Image quality: Excellent. Lungs and pleura: No acute air space opacities. No pleural effusions or pneumothorax. Central and peripheral airways are patent and normal in caliber. Mediastinum: Heart size is normal. Prominent coronary artery calcification is seen. No pericardial effusion. No mediastinal adenopathy by size criteria. Calcified mediastinal lymph nodes are seen. Thoracic aorta and central pulmonary arteries are normal in size. Atherosclerotic calcification is noted. Esophagus is normal in caliber. There is a small hiatal hernia. Bones and chest wall: Sternal reconstruction changes are seen. No suspicious bony lesions. No vertebral body compression fractures. Age-appropriate bony degenerative changes are seen. No axillary or supraclavicular adenopathy by size criteria. Thyroid gland is not seen. Abdomen: There is a simple appearing cyst seen exophytic from the right kidney anteriorly measuring 3.2 cm. Cholecystectomy clips are seen. Calcified splenic granulomas are seen. The visualized portions of the upper abdominal structures are otherwise unremarkable for imaging technique. IMPRESSION: No focal infiltrates are seen to suggest pneumonia. No enlarged mediastinal lymph nodes are seen. The thyroid is not seen. Please correlate with prior thyroidectomy. Incidental note is made of: Sternal reconstruction changes are seen. Small hiatal hernia Atherosclerotic calcification, including prominent coronary artery calcification Cholecystectomy Prior granulomatous exposure. Dictated by: Yazan Mcallister M.D. on 09/18/2020 at 15:04 ECG Data Attestation: I personally reviewed and interpreted this ECG as follows: Interpretation: Sinus rhythm at a rate of 96 Right bundle branch block Left axis deviation No acute ischemic changes MDM Narrative Medical decision making narrative: With multiple chronic medical issues who had a syncopal/near syncopal episode today a presents with a fever to 101.6 that resolves nicely with Tylenol and now is reporting chills. No clear suggestion of infectious etiology. Chest x-ray is unremarkable, urine dip is unremarkable, abdomen is benign, careful skin exam does not suggest any cellulitis, he is alert appropriate with no meningismal signs to suggest meningitis Case is reviewed with the hospitalist. The normal white blood cell count and no source for infection identified her recommendation was a chest CT is at would be the most likely area to identify infection. Of note his proBNP is minimally elevated more consistent with poor clearance secondary to his renal insufficiency. Troponin is slightly elevated as well, again likely more related to poor clearance rather than acute coronary syndrome. As his Tylenol as wearing off his fever is returning. He is on both tech really missing chronic prednisone for his transplant. Valacyclovir, itraconazole, Septra and azithromycin all as prophylactic regularly scheduled medications. Lactic acid is normal and there is no evidence of sepsis 5pm discussed with the hospitalist who agrees that a fever returning in 79-year-old immunocompromised gentleman is certainly of concern. Long discussi on with the patient who is awake, alert and entirely cognitively appropriate, and his son regarding disposition. They live just a few miles from the hospital, his is alert and appropriate and available and his son is willing to spend the night tonight. The patient himself looks entirely nontoxic and states the only reason he came into the hospital was to get his skin tear on the left arm repaired. He would prefer to go home. We had a long discussion regarding fevers in the setting and all completely agreed that with any new symptoms including subtle symptoms of increasing fatigue, weakness, mental status changes etc. he would return to the emergency room for further evaluation. In the setting of shared decision making, he will be discharged home. Discharge Plan Departure Patient Disposition: Home Clinical Impression: Immunocompromised status associated with infection, Skin tear Fever Qualifiers: Fever type: unspecified Qualified Code(s): R50.9 - Fever, unspecified Fall Qualifiers: Encounter type: initial encounter Qualified Code(s): W19.XXXA - Unspecified fall, initial encounter Instructions: DI for Sepsis -- Adult Activity Restrictions/Additional Instructions: Thank you for coming in today We were able to bandage up your skin tear. Please leave the current dressing on for 4-5 days and then gently remove and replace. If there is any sign of infection please feel free to return to the emergency department Regarding your fever, we do not have a full explanation for why you have a fever. You do not have COVID, pneumonia, meningitis, cellulitis, intra-abdominal infection, bladder infection or kidney infection or other localizing source to explain the recurrent fever. Need a long discussion regarding your immunocompromised status and risk of fever of unknown origin. Admission was offered and we had a discussion about discharge home. With your input, we did decide to have you go home however I would caution you that I am still quite concerned and if you have any new symptoms including weakness, confusion, additional falls you do need to return to the emergency room for further evaluation. We did do blood cultures today and if these return positive we will call you and you would need to return for IV antibiotics Please take all of your daily medication when she gets home and continue all has prescribed I hope you feel better quickly Prescriptions: No Action valganciclovir 450 mg tablet 450 mg PO DAILY RF: 0 levothyroxine 137 mcg tablet 137 mcg PO QAM RF: 0 prednisone 5 mg tablet 5 mg PO DAILY RF: 0 sulfamethoxazole-trimethoprim 800-160 mg tablet 0.5 tab PO DIRECTED RF: 0 carvedilol 3.125 mg tablet 3.125 mg PO BID RF: 0 itraconazole 100 mg capsule 100 mg PO BID RF: 0 tacrolimus 1 mg capsule 1 mg PO QAM RF: 0 tacrolimus 0.5 mg capsule 0.5 mg PO QPM RF: 0 azithromycin 500 mg tablet 500 mg PO DIRECTED RF: 0 Januvia 50 mg tablet 50 mg PO DAILY RF: 0 Referrals: Froilan Morgan MD [Primary Care Provider] -
[2020-09-18 12:55] LABS: COVID19 -Nasal RAPID Negative (Negative)
[2020-09-18] MEDS: SODIUM CHLORIDE 0.9% 1,000 ML 1000 ML IV (12:59)
[2020-09-18] MEDS: ACETAMINOPHEN 325 MG TABLET 650 MG PO (12:59)
[2020-09-18 13:05] LABS: Prothrombin Time 11.5 SECONDS (10.1-12.7)
[2020-09-18 13:07] LABS: Basophils Absolute Auto 0 /uL (0-100); Basophils Percent Auto 0.7 % (0-2); Eosinophils Absolute Auto 100 /uL (0-450); Eosinophils Percent Auto 0.9 % (2-4); Hematocrit 29.7 % (41-53); Hemoglobin 9.9 g/dL (13.5-17.5); Lymphocytes Absolute Auto 700 /uL (1100-4500); Lymphocytes Percent Auto 10.3 % (25-40); Mean Corpuscular HGB Conc 33.2 % (30-36); Mean Corpuscular Volume 102.3 fL (80-100); Monocytes Absolute Auto 1100 /uL (0-900); Monocytes Percent Auto 15.6 % (3-14); Neutrophils Absolute Auto 5200 /uL (1500-7000); Neutrophils Percent Auto 72.5 % (50-75); Platelet Count 124 X10^3/uL (150-400); Red Cell Distribution Width 14.1 % (11.6-14.8); White Blood Cell Count 7.1 X10^3/uL (4.5-11.0)
[2020-09-18 13:08] LABS: PTT Partial Thromboplastin Tim 26 SECONDS (26.4-36.2)
[2020-09-18 13:09] LABS: Add Manual Diff / Slide Review SLIDE REVIEW
[2020-09-18 13:12] LABS: Lactate (Lactic Acid) 1.3 mmol/L (0.7-2.1)
[2020-09-18 13:29] LABS: Alanine Aminotransferase 25 IU/L (<50); Albumin 3.4 g/dL (3.5-5.0); Albumin Globulin Ratio 1.3 (1.0-2.8); Alkaline Phosphatase 94 U/L (38-126); Aspartate Aminotransferase 37 IU/L (17-59); BUN Creatinine Ratio 21.8 (6-22); Bilirubin Total 0.4 mg/dL (0.2-1.3); Blood Urea Nitrogen 49 mg/dL (9-20); Calcium 9.1 mg/dL (8.4-10.2); Carbon Dioxide 26 mmol/L (22-32); Chloride 109 mmol/L (98-107); Estimated Glomerular Filt Rate 28.1 mL/min (>60); Globulin 2.7 g/dL (1.7-4.1); Glucose 103 mg/dL (80-110); HEMOLYSIS < 15 (0-50); Lipase 158 U/L (23-300); Potassium 4.8 mmol/L (3.4-5.1); Sodium 137 mmol/L (137-145); Total Protein 6.1 g/dL (6.3-8.2)
[2020-09-18 13:38] LABS: Macrocytosis 1+
[2020-09-18 13:44] LABS: Procalcitonin 0.09 ng/mL (<0.5)
[2020-09-18] MEDS: SODIUM CHLORIDE 0.9% 500 ML 1000 ML IV (14:24)
[2020-09-18 14:47] LABS: NT-proBNP (BNP-Adult 18+) 1780 pg/mL (<450); Troponin I 0.038 ng/mL (0.01-0.034)
--- NOTE | 2020-09-18 15:11 | DI.CT.S_ITS ---
PROCEDURE: CT CHEST WO CON INDICATIONS: fever unidentified origin TECHNIQUE: Noncontrast 5 mm thick sections acquired from the pulmonary apices to the posterior costophrenic angles. 1 mm lung window, 5 mm thick coronal and sagittal and 7 mm axial MIP reformats were then acquired. For radiation dose reduction, the following was used: automated exposure control, adjustment of mA and/or kV according to patient size. COMPARISON: [facility], CT, CHEST HIGH RESOLUTION, 03/03/2009, 10:42. [facility], CR, XR CHEST 1V, 09/18/2020, 12:29. [facility], CT, CT SANDOVAL, 03/27/2016, 15:14. FINDINGS: Image quality: Excellent. Lungs and pleura: No acute air space opacities. No pleural effusions or pneumothorax. Central and peripheral airways are patent and normal in caliber. Mediastinum: Heart size is normal. Prominent coronary artery calcification is seen. No pericardial effusion. No mediastinal adenopathy by size criteria. Calcified mediastinal lymph nodes are seen. Thoracic aorta and central pulmonary arteries are normal in size. Atherosclerotic calcification is noted. Esophagus is normal in caliber. There is a small hiatal hernia. Bones and chest wall: Sternal reconstruction changes are seen. No suspicious bony lesions. No vertebral body compression fractures. Age-appropriate bony degenerative changes are seen. No axillary or supraclavicular adenopathy by size criteria. Thyroid gland is not seen. Abdomen: There is a simple appearing cyst seen exophytic from the right kidney anteriorly measuring 3.2 cm. Cholecystectomy clips are seen. Calcified splenic granulomas are seen. The visualized portions of the upper abdominal structures are otherwise unremarkable for imaging technique. IMPRESSION: No focal infiltrates are seen to suggest pneumonia. No enlarged mediastinal lymph nodes are seen. The thyroid is not seen. Please correlate with prior thyroidectomy. Incidental note is made of: Sternal reconstruction changes are seen. Small hiatal hernia Atherosclerotic calcification, including prominent coronary artery calcification Cholecystectomy Prior granulomatous exposure. Dictated by: Yazan Mcallister M.D. on 09/18/2020 at 15:04 Approved by: Yazan Mcallister M.D. on 09/18/2020 at 15:08
[2020-09-18 15:44] LABS: Lactate (Lactic Acid) 1.3 mmol/L (0.7-2.1)
== END 2020-09-18 17:16 | disposition home or self-care (01) ==
PROVIDERS: Emergency Provider Emergency Medicine; PCP Internal Medicine
DX: S51.812A Laceration without foreign body of left forearm, initial encounter (principal); B99.9 Unspecified infectious disease; R50.9 Fever, unspecified; W19.XXXA Unspecified fall, initial encounter; E11.9 Type 2 diabetes mellitus without complications; E03.9 Hypothyroidism, unspecified; I25.10 Atherosclerotic heart disease of native coronary artery without angina pectoris; I10 Essential (primary) hypertension; D64.9 Anemia, unspecified; Z20.822 Contact with and (suspected) exposure to COVID-19
CPT/HCPCS: 36415; 71045; 71250; 80053; 81003; 83605; 83690; 83880; 84145; 84484; 85025; 85610; 85730; 87040; 87086; 87635; 93005; 93010; 96360; 96361; 99284; C9803

== ENCOUNTER → 2020-10-28 08:28 | Outpatient (CLI) | payer MEDICARE, SELFPAY ==
[2020-10-28 09:15] LABS: Add Manual Diff / Slide Review NO; Basophils Absolute Auto 0 /uL (0-100); Basophils Percent Auto 0.4 % (0-2); Eosinophils Absolute Auto 0 /uL (0-450); Eosinophils Percent Auto 0.4 % (2-4); Hematocrit 29.4 % (41-53); Hemoglobin 9.7 g/dL (13.5-17.5); Lymphocytes Absolute Auto 1900 /uL (1100-4500); Mean Corpuscular HGB Conc 33.2 % (30-36); Mean Corpuscular Hemoglobin 33.7 PG (26-34); Mean Corpuscular Volume 101.6 fL (80-100); Monocytes Absolute Auto 1100 /uL (0-900); Monocytes Percent Auto 11.7 % (3-14); Neutrophils Absolute Auto 6100 /uL (1500-7000); Neutrophils Percent Auto 66.5 % (50-75); Platelet Count 164 X10^3/uL (150-400); Red Blood Cell Count 2.89 X10^6/uL (4.5-5.9); White Blood Cell Count 9.2 X10^3/uL (4.5-11.0)
[2020-10-28 09:19] LABS: Alanine Aminotransferase 21 IU/L (<50); Albumin 3.4 g/dL (3.5-5.0); Albumin Globulin Ratio 1.2 (1.0-2.8); Alkaline Phosphatase 117 U/L (38-126); Aspartate Aminotransferase 31 IU/L (17-59); BUN Creatinine Ratio 22.1 (6-22); Bilirubin Total 0.2 mg/dL (0.2-1.3); Blood Urea Nitrogen 42 mg/dL (9-20); Calcium 8.4 mg/dL (8.4-10.2); Carbon Dioxide 24 mmol/L (22-32); Chloride 107 mmol/L (98-107); Estimated Glomerular Filt Rate 34.1 mL/min (>60); Globulin 2.8 g/dL (1.7-4.1); Glucose 129 mg/dL (80-110); HEMOLYSIS < 15 (0-50); Magnesium 2.4 mg/dL (1.6-2.3); Phosphorous 4.1 mg/dL (2.3-3.7); Potassium 4.7 mmol/L (3.4-5.1); Sodium 137 mmol/L (137-145); Total Protein 6.2 g/dL (6.3-8.2)
[2020-10-29 09:32] LABS: Tacrolimus 3.6 ng/mL (2.0-20.0)
[2020-10-29 15:54] LABS: CMV DNA, Quant Real Time PCR Negative (Negative)
== END ==
PROVIDERS: PCP Internal Medicine; Referring Provider Internal Medicine Pulmonary Disease; Visit Provider Internal Medicine Pulmonary Disease
DX: E83.42 Hypomagnesemia (principal); Z94.2 Lung transplant status
CPT/HCPCS: 36415; 80053; 80197; 83735; 84100; 85025; 87497

== ENCOUNTER → 2020-11-10 09:42 | Outpatient (CLI) | payer MEDICARE, SELFPAY ==
[2020-11-10 10:50] LABS: COVID19 -Nasal RAPID Negative (Negative)
== END ==
PROVIDERS: PCP Internal Medicine; Referring Provider Internal Medicine; Visit Provider Internal Medicine
DX: Z20.822 Contact with and (suspected) exposure to COVID-19 (principal)
CPT/HCPCS: 87635; C9803

== ENCOUNTER → 2020-11-11 10:49 | Outpatient (CLI) | payer MEDICARE, SELFPAY ==
--- NOTE | 2020-11-11 | DI.RAD.S_ITS ---
PROCEDURE: XR CHEST 2V INDICATIONS: LUNG TRANSPLANT BILATERAL TECHNIQUE: 2 views of the chest were acquired. COMPARISON: [facility], CR, XR CHEST 1V, 09/18/2020, 12:29. FINDINGS: Surgical changes and devices: Stable postsurgical changes and hardware of the mediastinum from prior sternotomy. Multiple surgical clips noted in the mediastinum and right upper abdomen. Lungs and pleura: Stable eventration of the right hemidiaphragm. Lungs appear clear. No focal airspace disease. No pleural effusions or pneumothorax. Mediastinum: Mediastinal contours are stable. Heart size is stable. Bones and chest wall: No suspicious bony abnormalities. Soft tissues appear unremarkable. IMPRESSION: Stable radiographic evaluation of the chest without acute cardiopulmonary abnormalities or focal airspace disease. Dictated by: London Bernstein M.D. on 11/11/2020 at 13:22 Approved by: London Bernstein M.D. on 11/11/2020 at 13:27
--- NOTE | 2020-11-18 11:23 | PM.PFT.1 ---
Pulmonary Function Test Referral & Results Date Patient Seen: 11/11/20 Requesting provider: Josr Yeung Results: The spirometry demonstrates an FVC of 3.73 L which is 94% of predicted. The FEV1 was measured at 3.29 L which is 118% of predicted. The FEV1/FVC ratio was 88 which is 124% of predicted. Interpretation: This study demonstrates normal forced spirometry
== END ==
PROVIDERS: PCP Internal Medicine; Referring Provider Internal Medicine Pulmonary Disease; Visit Provider Internal Medicine Pulmonary Disease
DX: Z94.2 Lung transplant status (principal); Z87.891 Personal history of nicotine dependence
CPT/HCPCS: 71046; 94010

== ENCOUNTER → 2020-12-29 07:32 | Outpatient (CLI) | payer MEDICARE, SELFPAY ==
[2020-12-29 09:17] LABS: Add Manual Diff / Slide Review NO; Basophils Absolute Auto 100 /uL (0-100); Eosinophils Absolute Auto 100 /uL (0-450); Eosinophils Percent Auto 0.8 % (2-4); Hematocrit 30.5 % (41-53); Hemoglobin 10.2 g/dL (13.5-17.5); Lymphocytes Absolute Auto 2300 /uL (1100-4500); Lymphocytes Percent Auto 29.7 % (25-40); Mean Corpuscular HGB Conc 33.5 % (30-36); Mean Corpuscular Hemoglobin 33.1 PG (26-34); Mean Corpuscular Volume 98.6 fL (80-100); Monocytes Absolute Auto 700 /uL (0-900); Monocytes Percent Auto 9.4 % (3-14); Neutrophils Absolute Auto 4600 /uL (1500-7000); Neutrophils Percent Auto 59.1 % (50-75); Platelet Count 216 X10^3/uL (150-400); Red Blood Cell Count 3.09 X10^6/uL (4.5-5.9); Red Cell Distribution Width 13.6 % (11.6-14.8); White Blood Cell Count 7.8 X10^3/uL (4.5-11.0)
[2020-12-29 09:35] LABS: Alanine Aminotransferase 21 IU/L (<50); Albumin 3.4 g/dL (3.5-5.0); Albumin Globulin Ratio 1.1 (1.0-2.8); Alkaline Phosphatase 81 U/L (38-126); Aspartate Aminotransferase 35 IU/L (17-59); BUN Creatinine Ratio 25.5 (6-22); Bilirubin Total 0.3 mg/dL (0.2-1.3); Blood Urea Nitrogen 50 mg/dL (9-20); C-Reactive Protein Quant 0.7 mg/dL (<1.0); Calcium 10.4 mg/dL (8.4-10.2); Carbon Dioxide 29 mmol/L (22-32); Chloride 105 mmol/L (98-107); Estimated Glomerular Filt Rate 32.9 mL/min (>60); Glucose 91 mg/dL (80-110); HEMOLYSIS < 15 (0-50); Magnesium 1.9 mg/dL (1.6-2.3); Potassium 4.1 mmol/L (3.4-5.1); Sodium 139 mmol/L (137-145); Total Protein 6.4 g/dL (6.3-8.2)
[2020-12-30 08:45] LABS: Tacrolimus 3.5 ng/mL (2.0-20.0)
[2020-12-30 10:46] LABS: Dehydroepiandrosterone Sulfate 3.5 ug/dL (20.8-226.4); PSA Free % 29.2 % (.); PSA, Total 1.2 ng/mL (0.0-4.0)
[2020-12-30 17:55] LABS: CMV DNA, Quant Real Time PCR Negative (Negative)
[2020-12-31 01:48] LABS: Homocysteine 16.9 umol/L (0.0-21.3)
== END ==
PROVIDERS: PCP Internal Medicine; Referring Provider Acupuncturist; Visit Provider Acupuncturist
DX: N18.30 Chronic kidney disease, stage 3 unspecified (principal); Z79.2 Long term (current) use of antibiotics; E83.42 Hypomagnesemia; E72.11 Homocystinuria; D51.9 Vitamin B12 deficiency anemia, unspecified; E03.9 Hypothyroidism, unspecified; Z94.2 Lung transplant status
CPT/HCPCS: 36415; 80053; 80197; 82627; 83090; 83735; 84100; 84153; 84154; 85025; 86140; 87497

== ENCOUNTER → 2021-01-10 07:02 | Outpatient (CLI) | payer MEDICARE, SELFPAY ==
[2021-01-10 09:03] LABS: Vitamin D 25 Hydroxy (D3) 81.1 ng/mL (30.0-100.0)
[2021-01-10 09:20] LABS: Thyroid Stimulating Hormone 4.69 uIU/mL (0.47-4.68)
[2021-01-10 10:14] LABS: Ferritin 153 ng/mL (18-464)
[2021-01-10 10:45] LABS: Folate > 20.0 ng/mL (2.76-20.0); Vitamin B12 877 pg/mL (239-931)
[2021-01-10 11:50] LABS: Free T3, Triiodothyronine Free 2.37 pg/mL (2.77-5.27); Free T4, Direct Thyroxine 1.23 ng/dL (0.78-2.19)
[2021-01-11 05:37] LABS: Parathyroid Hormone Int 22 pg/mL (15-65)
== END ==
PROVIDERS: PCP Internal Medicine; Referring Provider Acupuncturist; Visit Provider Acupuncturist
DX: D52.9 Folate deficiency anemia, unspecified (principal); E03.9 Hypothyroidism, unspecified; E55.9 Vitamin D deficiency, unspecified; N18.30 Chronic kidney disease, stage 3 unspecified; E72.11 Homocystinuria; Z94.2 Lung transplant status; R79.0 Abnormal level of blood mineral
CPT/HCPCS: 36415; 82306; 82607; 82728; 82746; 83970; 84439; 84443; 84481

== ENCOUNTER → 2021-02-21 07:28 | Outpatient (CLI) | payer MEDICARE, SELFPAY ==
[2021-02-21 08:52] LABS: Add Manual Diff / Slide Review NO; Basophils Absolute Auto 0 /uL (0-100); Basophils Percent Auto 0.6 % (0-2); Eosinophils Absolute Auto 100 /uL (0-450); Hematocrit 30.6 % (41-53); Hemoglobin 10.2 g/dL (13.5-17.5); Lymphocytes Absolute Auto 2400 /uL (1100-4500); Mean Corpuscular HGB Conc 33.3 % (30-36); Mean Corpuscular Hemoglobin 33.1 PG (26-34); Mean Corpuscular Volume 99.4 fL (80-100); Monocytes Absolute Auto 900 /uL (0-900); Neutrophils Absolute Auto 4200 /uL (1500-7000); Neutrophils Percent Auto 55.4 % (50-75); Platelet Count 171 X10^3/uL (150-400); Red Blood Cell Count 3.08 X10^6/uL (4.5-5.9); Red Cell Distribution Width 14.5 % (11.6-14.8); White Blood Cell Count 7.6 X10^3/uL (4.5-11.0)
[2021-02-21 09:36] LABS: Alanine Aminotransferase 23 IU/L (<50); Albumin 3.2 g/dL (3.5-5.0); Albumin Globulin Ratio 1.2 (1.0-2.8); Alkaline Phosphatase 102 U/L (38-126); Aspartate Aminotransferase 35 IU/L (17-59); BUN Creatinine Ratio 20.2 (6-22); Bilirubin Total 0.4 mg/dL (0.2-1.3); Blood Urea Nitrogen 51 mg/dL (9-20); Calcium 9.5 mg/dL (8.4-10.2); Carbon Dioxide 29 mmol/L (22-32); Chloride 104 mmol/L (98-107); Estimated Glomerular Filt Rate 24.6 mL/min (>60); Globulin 2.6 g/dL (1.7-4.1); Glucose 105 mg/dL (80-110); HEMOLYSIS < 15 (0-50); Magnesium 2.2 mg/dL (1.6-2.3); Phosphorous 3.8 mg/dL (2.3-3.7); Potassium 4.7 mmol/L (3.4-5.1); Sodium 138 mmol/L (137-145); Total Protein 5.8 g/dL (6.3-8.2)
[2021-02-22 06:54] LABS: SARS-CoV-2 Antibody Titer 0.8 U/mL (<0.8)
[2021-02-22 13:44] LABS: Tacrolimus 3.1 ng/mL (2.0-20.0)
[2021-02-22 17:49] LABS: CMV DNA, Quant Real Time PCR Negative (Negative)
== END ==
PROVIDERS: PCP Internal Medicine; Referring Provider Dermatology; Visit Provider Dermatology
DX: Z94.2 Lung transplant status (principal); I10 Essential (primary) hypertension; Z01.84 Encounter for antibody response examination; J98.8 Other specified respiratory disorders; Z20.822 Contact with and (suspected) exposure to COVID-19
CPT/HCPCS: 36415; 80053; 80197; 83735; 84100; 85025; 86769; 87497

== ENCOUNTER → 2021-03-28 10:35 | Outpatient (CLI) | payer MEDICARE, SELFPAY ==
[2021-03-28 11:28] LABS: Add Manual Diff / Slide Review NO; Basophils Absolute Auto 0 /uL (0-100); Basophils Percent Auto 0.5 % (0-2); Eosinophils Absolute Auto 0 /uL (0-450); Eosinophils Percent Auto 0.6 % (2-4); Hematocrit 32.6 % (41-53); Lymphocytes Absolute Auto 2400 /uL (1100-4500); Lymphocytes Percent Auto 31.5 % (25-40); Mean Corpuscular HGB Conc 33.7 % (30-36); Mean Corpuscular Hemoglobin 33.5 PG (26-34); Mean Corpuscular Volume 99.6 fL (80-100); Monocytes Absolute Auto 1000 /uL (0-900); Monocytes Percent Auto 12.7 % (3-14); Neutrophils Absolute Auto 4100 /uL (1500-7000); Neutrophils Percent Auto 54.7 % (50-75); Platelet Count 162 X10^3/uL (150-400); Red Blood Cell Count 3.27 X10^6/uL (4.5-5.9); Red Cell Distribution Width 14.3 % (11.6-14.8); White Blood Cell Count 7.6 X10^3/uL (4.5-11.0)
[2021-03-28 11:43] LABS: Alanine Aminotransferase 25 IU/L (<50); Albumin 3.4 g/dL (3.5-5.0); Albumin Globulin Ratio 1.2 (1.0-2.8); Alkaline Phosphatase 83 U/L (38-126); Aspartate Aminotransferase 44 IU/L (17-59); BUN Creatinine Ratio 23.7 (6-22); Bilirubin Total 0.4 mg/dL (0.2-1.3); Blood Urea Nitrogen 49 mg/dL (9-20); Calcium 8.6 mg/dL (8.4-10.2); Carbon Dioxide 27 mmol/L (22-32); Chloride 108 mmol/L (98-107); Estimated Glomerular Filt Rate 30.9 mL/min (>60); Globulin 2.9 g/dL (1.7-4.1); Glucose 121 mg/dL (80-110); HEMOLYSIS < 15 (0-50); Magnesium 1.9 mg/dL (1.6-2.3); Phosphorous 3.1 mg/dL (2.3-3.7); Potassium 4.6 mmol/L (3.4-5.1); Sodium 139 mmol/L (137-145); Total Protein 6.3 g/dL (6.3-8.2)
[2021-03-29 08:16] LABS: Tacrolimus 3.8 ng/mL (2.0-20.0)
[2021-03-30 20:36] LABS: CMV QNT DNA PCR Negative copies/mL (Negative)
== END ==
PROVIDERS: PCP Internal Medicine; Referring Provider Internal Medicine Nephrology; Visit Provider Internal Medicine Nephrology
DX: N18.32 Chronic kidney disease, stage 3b (principal); I10 Essential (primary) hypertension; Z94.2 Lung transplant status
CPT/HCPCS: 36415; 80053; 80069; 80197; 83735; 85025; 87497

== ENCOUNTER → 2021-05-17 11:43 | Outpatient (ROUT) | payer MEDICARE, SELFPAY | PROVIDERS: PCP Internal Medicine; Visit Provider Dermatology | DX: L02.91 Cutaneous abscess, unspecified (principal) | CPT/HCPCS: 87070; 87205 ==

== ENCOUNTER → 2021-07-26 06:47 | Outpatient (CLI) | payer MEDICARE, SELFPAY ==
[2021-07-26 08:15] LABS: Add Manual Diff / Slide Review NO; Basophils Absolute Auto 0 /uL (0-100); Basophils Percent Auto 0.4 % (0-2); Eosinophils Absolute Auto 0 /uL (0-450); Eosinophils Percent Auto 0.5 % (2-4); Hematocrit 33.7 % (41-53); Hemoglobin 11.2 g/dL (13.5-17.5); Lymphocytes Absolute Auto 2300 /uL (1100-4500); Lymphocytes Percent Auto 27.4 % (25-40); Mean Corpuscular HGB Conc 33.3 % (30-36); Mean Corpuscular Hemoglobin 33.5 PG (26-34); Mean Corpuscular Volume 100.7 fL (80-100); Monocytes Absolute Auto 900 /uL (0-900); Monocytes Percent Auto 10.9 % (3-14); Neutrophils Absolute Auto 5200 /uL (1500-7000); Neutrophils Percent Auto 60.8 % (50-75); Platelet Count 190 X10^3/uL (150-400); Red Blood Cell Count 3.35 X10^6/uL (4.5-5.9); Red Cell Distribution Width 14.5 % (11.6-14.8); White Blood Cell Count 8.5 X10^3/uL (4.5-11.0)
[2021-07-26 08:54] LABS: Alanine Aminotransferase 46 IU/L (<50); Albumin 3.6 g/dL (3.5-5.0); Albumin Globulin Ratio 1.3 (1.0-2.8); Alkaline Phosphatase 130 U/L (38-126); Aspartate Aminotransferase 47 IU/L (17-59); Bilirubin Total 0.3 mg/dL (0.2-1.3); Blood Urea Nitrogen 38 mg/dL (9-20); Calcium 9.4 mg/dL (8.4-10.2); Carbon Dioxide 27 mmol/L (22-32); Chloride 107 mmol/L (98-107); Globulin 2.8 g/dL (1.7-4.1); Glucose 101 mg/dL (80-110); HEMOLYSIS < 15 (0-50); Magnesium 2.2 mg/dL (1.6-2.3); Phosphorous 3.8 mg/dL (2.3-3.7); Potassium 4.8 mmol/L (3.4-5.1); Sodium 142 mmol/L (137-145); Total Protein 6.4 g/dL (6.3-8.2)
[2021-07-27 09:52] LABS: Tacrolimus 4.3 ng/mL (2.0-20.0)
[2021-07-29 17:51] LABS: CMV DNA, Quant Real Time PCR Negative (Negative)
[2021-08-09 16:19] LABS: SARS CoV19 IgG 48.3
== END ==
PROVIDERS: PCP Internal Medicine; Referring Provider Internal Medicine Pulmonary Disease; Visit Provider Internal Medicine Pulmonary Disease
DX: D84.9 Immunodeficiency, unspecified (principal); E83.42 Hypomagnesemia; Z94.2 Lung transplant status
CPT/HCPCS: 36415; 80053; 80197; 83735; 84100; 85025; 86769; 87497

== ENCOUNTER → 2021-07-26 07:22 | Outpatient (CLI) | payer MEDICARE, SELFPAY ==
--- NOTE | 2021-07-26 | DI.RAD.S_ITS ---
PROCEDURE: XR CHEST 2V INDICATIONS: Lung transplant status TECHNIQUE: 2 views of the chest were acquired. COMPARISON: [facility], CR, XR CHEST 2V, 11/11/2020, 11:07. FINDINGS: Surgical changes and devices: Post sternotomy changes. Lungs and pleura: Low lung volumes No pneumothorax or pleural effusion. Scattered subsegmental atelectasis and/or scarring. No focal consolidation. Mediastinum: Mediastinal contours are normal. Heart size is normal. Bones and chest wall: No suspicious bony abnormalities. Soft tissues appear unremarkable. IMPRESSION: Scattered subsegmental atelectasis and/or scarring. No focal consolidation. Dictated by: Dc Scott M.D. on 07/26/2021 at 10:20 Approved by: Dc Scott M.D. on 07/26/2021 at 10:42
== END ==
PROVIDERS: PCP Internal Medicine; Referring Provider Internal Medicine Critical Care Medicine; Visit Provider Internal Medicine Critical Care Medicine
DX: D84.9 Immunodeficiency, unspecified (principal); E83.42 Hypomagnesemia; Z94.2 Lung transplant status
CPT/HCPCS: 36415; 71046; 80053; 80197; 83735; 84100; 85025; 86769; 87497

== ENCOUNTER → 2021-08-04 08:53 | Outpatient (CLI) | payer MEDICARE, SELFPAY ==
[2021-08-04 10:09] LABS: COVID19 -Nasal RAPID Negative (Negative)
== END ==
PROVIDERS: PCP Internal Medicine; Referring Provider Internal Medicine; Visit Provider Internal Medicine
DX: Z20.822 Contact with and (suspected) exposure to COVID-19 (principal)
CPT/HCPCS: 87635; C9803

== ENCOUNTER → 2021-08-04 08:54 | Outpatient (CLI) | payer MEDICARE, SELFPAY ==
--- NOTE | 2021-08-10 09:24 | PM.PFT.1 ---
Pulmonary Function Test Referral & Results Date Patient Seen: 08/04/21 Requesting provider: Hari Victoria Results: The spirometry demonstrates an FVC of 3.77 L which is 96% of predicted. The FEV1 was measured at 3.33 L which is 121% of predicted. The FEV1/FVC ratio was 88 which is 124% of predicted. Following the administration of bronchodilator there was no significant change Lung volumes show an SVC of 4.16 L which is 95% of predicted. The diffusing capacity was measured at 16.42 which is 50% of predicted. No hemoglobin value was provided, so no correction for potential anemia could be made, if appropriate. 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
== END ==
PROVIDERS: PCP Internal Medicine; Referring Provider Internal Medicine Critical Care Medicine; Visit Provider Internal Medicine Critical Care Medicine
DX: Z94.2 Lung transplant status (principal); Z87.891 Personal history of nicotine dependence; Z20.822 Contact with and (suspected) exposure to COVID-19; J98.8 Other specified respiratory disorders
CPT/HCPCS: 87635; 94060; 94726; 94729; C9803

== ENCOUNTER 2021-09-16 22:33 | Inpatient (IN) | payer MEDICARE, SELFPAY ==
[2021-09-16 22:59] VITALS: BP 139/68; PULSE 88; RESP 18; TEMP 37.7; O2SAT 86; BMI 29.5
--- NOTE | 2021-09-16 23:06 | DI.RAD.S_ITS ---
PROCEDURE: XR CHEST 1V INDICATIONS: hypoxemia, fever, sepsis TECHNIQUE: One view of the chest was acquired. COMPARISON: [facility], CR, XR CHEST 2V, 07/26/2021, 7:20. FINDINGS: Surgical changes and devices: Stable post sternotomy changes. Lungs and pleura: Interval development of new patchy ill-defined airspace opacities involving the left upper, mid and lower lung zones. No focal consolidations. No substantial pleural effusion. No pneumothorax. Mild low lung volumes. Mediastinum: Mediastinal contours appear stable. Heart size is normal. Bones and chest wall: No suspicious bony lesions. Overlying soft tissues appear unremarkable. IMPRESSION: Interval development of patchy airspace opacities of the left hemithorax compatible with pneumonia. Recommend follow up chest radiograph 4-6 weeks after treatment to document resolution of findings and/or return to baseline examination. Dictated by: London Bernstein M.D. on 09/16/2021 at 23:40 Approved by: London Bernstein M.D. on 09/16/2021 at 23:42
[2021-09-16 23:10] VITALS: PULSE 86; O2SAT 93
--- NOTE | 2021-09-16 23:14 | ED.SEPSIS ---
HPI - Sepsis General Chief Complaint: Upper Respiratory Symptoms Mode of arrival: Wheelchair Source: patient Limitations: no limitations Evaluation Sepsis Screen: No Definite Risk Sepsis Infection Criteria Present: Suspected New Infection Narrative: 80-year-old male nonsmoker presents with his with a chief complaint of gradually worsening generalized weakness and cough for the past week or so. His medical history is complex and includes hypertension, hypothyroidism and diabetes. 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 He is followed by his care team in [place] and takes prednisone daily. He is fully vaccinated against COVID, denies recent travel or exposure to known ill persons. Over the past week he has become increasingly weak and fatigued. He is dizzy, weak and lightheaded. He has a poor appetite and is nauseated but denies vomiting. He has had occasional loose stools. He denies any urinary complaints such as dysuria, frequency or urgency. He has had subjective fever and shaking chills. He denies any chest pain or abdominal pain. He had a dental procedure with tooth removal about 1 week ago Review of Systems Review of Systems Narrative: GENERAL: See HPI HEENT: Denies sinus pain, ear pain, sore throat, difficulty swallowing, dizziness. RESPIRATORY: See HPI CARDIOVASCULAR: Denies chest pain, palpitations, orthopnea, edema, GASTROINTESTINAL: Denies nausea, vomiting, abdominal pain, diarrhea, constipation, melena. : Denies dysuria, frequency, incontinence, hematuria, urinary retention. MUSCULOSKELETAL: denies weakness, joint pain, or bony pain SKIN: Denies rash, skin lesions, or other NEUROLOGIC: Denies weakness, headache, numbness, change in speech, confusion, seizures, incoordination. PSYCHIATRIC: No concerning psychosocial issues. 12 point review of systems is negative except for those stated above Patient History Medical History Anemia Coronary artery disease Diabetes Hyperlipidemia Hypertension Tubular adenoma of colon Surgical History H/O lung transplant Social History marital status: household members: spouse Smoking Status: Never smoker alcohol intake: current Smoking Status: Never smoker Exam Narrative Exam Narrative: GENERAL: [80 year old patient appears stated age. Ill-appearing, no obvious respiratory distress but hypoxemic on initial evaluation. HEAD: Atraumatic. Normocephalic. EYES: Pupils equal round and reactive. Extraocular motions intact. No scleral icterus. No injection or drainage. ENT: Dry mucous membranes Nose without bleeding, purulent drainage. Throat without erythema, tonsillar hypertrophy or exudate. Airway patent. NECK: Trachea midline. Non tender CARDIOVASCULAR: Regular rate and rhythm without murmurs, gallops, or rubs. RESPIRATORY: Clear to auscultation. Breath sounds equal bilaterally. No wheezes, rales, or rhonchi. GASTROINTESTINAL: Abdomen soft, non-tender, nondistended. EXTREMITIES: No edema or joint tenderness. BACK: Nontender without deformity or crepitance. No flank tenderness. NEURO: AOx3. SKIN: Poor skin turgor No rash or erythema of visible areas Initial Vital Signs Initial Vital Signs: Vital Signs Temperature 99.9 F H 09/16/21 22:59 Pulse Rate 88 09/16/21 22:59 Respiratory Rate 18 09/16/21 22:59 Blood Pressure 139/68 09/16/21 22:59 Pulse Oximetry 86 L 09/16/21 22:59 Course Orders Ordered: ED Orders 09/16/21 23:06 XR chest 1V Stat ABG [Arterial Blood Gas] Stat Urinalysis and Microscopic Stat EKG-12 Lead Stat 09/16/21 23:15 COVID19 -Nasal swab/Pre-Proc Stat 09/16/21 23:30 Complete Blood Count AUTO DIFF Stat Comprehensive Metabolic Panel Stat D Dimer Stat Lactate (Lactic Acid) Stat NT-proBNP (BNP-Adult 18+) Stat Procalcitonin Stat Troponin & CK Cardiac Panel Stat 09/16/21 23:49 Respiratory Panel (Film Array) Stat 09/16/21 23:55 Blood Culture Stat 09/17/21 00:17 CT angio chest PE protocol Stat Acetaminophen (Acetaminophen 325 Mg Tablet) 650 mg PO Q6HR PRN PRN Reason: Fever/Mild Pain (1-3) Carvedilol (Carvedilol 3.125 Mg Tablet) 3.125 mg PO BID HARI Dexamethasone (Dexamethasone 10 Mg/Ml Vial) 6 mg IV DAILY HARI Dextrose (Dextrose 50 % In Water 25 Gm/50 Ml Syringe) 25 gm IV PRN PRN PRN Reason: Hypoglycemia Remdesivir 100 mg/ Sodium (Chloride) 250 mls @ 250 mls/hr IV DAILY [facility] Stop: 09/25/21 09:59 Insulin Glargine (Insulin Glargine 100 Unit/Ml 3ml Pen) 8 unit SUBCUT 2100 [facility] Insulin Human Lispro (Insulin Lispro 100 Unit/Ml 3ml Vial) 0 unit SUBCUT ACHS [facility]; Protocol Levothyroxine Sodium (Levothyroxine 150 Mcg Tablet) 150 mcg PO DAILY@0600 [facility] Naloxone HCl (Naloxone 0.4 Mg/Ml Vial) 0.2 mg IV Q2MIN PRN PRN Reason: Opiate Reversal Non-Formulary Medication (Itraconazole) 100 mg PO BID [facility] Non-Formulary Medication (Valganciclovir) 450 mg PO DAILY [facility] Ondansetron HCl (Ondansetron 4 Mg/2 Ml Inj) 4 mg IV Q8HR PRN PRN Reason: Nausea And Vomiting Tacrolimus (Tacrolimus 0.5 Mg Capsule) 1 mg PO DAILY [facility] Tacrolimus (Tacrolimus 0.5 Mg Capsule) 0.5 mg PO QPM [facility] Discontinued Medications Dexamethasone (Dexamethasone 10 Mg/Ml Vial) 6 mg IV NOW ONE Stop: 09/17/21 01:04 Last Admin: 09/17/21 01:28 Dose: 6 mg Documented by: JW Lactated Ringer's (Lactated Ringers) 2,721.54 mls @ 907.18 mls/hr 30 ml/kg infuse over 3 hr (2721.54 ml) IV NOW ONE Stop: 09/17/21 02:05 Last Infusion: 09/17/21 04:18 Dose: 0 mls/hr Documented by: Admin: 09/16/21 23:42 Dose: 907.18 mls/hr Documented by: JW Remdesivir 200 mg/ Sodium (Chloride) 250 mls @ 250 mls/hr IV NOW ONE Stop: 09/17/21 02:02 Last Infusion: 09/17/21 03:08 Dose: 0 mls/hr Documented by: Admin: 09/17/21 01:28 Dose: 250 mls/hr Documented by: MESSII Remdesivir 100 mg/ Sodium (Chloride) 250 mls @ 250 mls/hr IV Q24H [facility] Stop: 09/26/21 02:29 Vital Signs Vital signs: Vital Signs - 8 hr 09/16/21 22:59 09/16/21 23:10 09/16/21 23:30 Temperature 99.9 F H Pulse Rate 88 86 84 Respiratory Rate 18 Blood Pressure 139/68 Pulse Oximetry 86 L 93 95 09/16/21 23:48 09/17/21 00:00 09/17/21 00:20 Temperature Pulse Rate 85 102 H 91 H Respiratory Rate 19 Blood Pressure 152/67 H 161/74 H Pulse Oximetry 95 94 92 09/17/21 00:38 09/17/21 00:43 09/17/21 01:00 Temperature Pulse Rate 95 H 89 104 H Respiratory Rate 28 H 23 Blood Pressure 174/79 H 185/89 H Pulse Oximetry 93 91 94 09/17/21 01:30 09/17/21 02:00 09/17/21 02:01 Temperature Pulse Rate 90 96 H 96 H Respiratory Rate 21 36 H 30 H Blood Pressure 202/98 H 183/87 H Pulse Oximetry 98 85 L 92 09/17/21 02:30 09/17/21 02:31 Temperature Pulse Rate 100 H 102 H Respiratory Rate 39 H 33 H Blood Pressure 208/91 H Pulse Oximetry 92 Sepsis Guideline Criteria Level 1 - Infection Sepsis Infection Criteria Present: Suspected New Infection Treatment Initiated Antibiotics:: IV antimicrobials will be initiated as soon as possible after recognition of sepsis state and within one hour for both sepsis and septic shock. MDM - Sepsis Lab Data Result diagrams: 09/16/21 23:30 09/16/21 23:30 Labs: Lab Results 09/16/21 09/16/21 09/16/21 Range/Units 23:15 23:30 23:30 WBC 8.1 (4.5-11.0) X10^3/uL RBC 3.26 L (4.5-5.9) X10^6/uL Hgb 10.9 L (13.5-17.5) g/dL Hct 32.0 L (41-53) % MCV 98.1 (80-100) fL MCH 33.3 (26-34) PG MCHC 33.9 (30-36) % RDW 13.3 (11.6-14.8) % Plt Count 150 (150-400) X10^3/uL Neut % (Auto) 62.4 (50-75) % Lymph % (Auto) 25.2 (25-40) % [place] % (Auto) 11.8 (3-14) % Eos % (Auto) 0.1 L (2-4) % Baso % (Auto) 0.5 (0-2) % Neut # (Auto) 5100 (7830-8585) /uL Lymph # (Auto) 2000 (4768-7847) /uL [place] # (Auto) 1000 H (0-900) /uL Eos # (Auto) 0 (0-450) /uL Baso # (Auto) 0 (0-100) /uL D-Dimer 1207 H (<230) ng/mL Sodium (137-145) mmol/L Potassium (3.4-5.1) mmol/L Chloride (98-107) mmol/L Carbon Dioxide (22-32) mmol/L BUN (9-20) mg/dL Creatinine (0.66-1.25) mg/dL Estimated GFR (>60) mL/min BUN/Creatinine Ratio (6-22) Glucose (80-110) mg/dL Lactate (0.7-2.1) mmol/L Calcium (8.4-10.2) mg/dL Total Bilirubin (0.2-1.3) mg/dL AST (17-59) IU/L ALT (<50) IU/L Alkaline Phosphatase (38-126) U/L Total Creatine Kinase (55-170) U/L CK-MB (CK-2) (<2.37) ng/mL CK-MB (CK-2) Rel Index (1.5-5.0) % Troponin I (0.01-0.034) ng/mL NT-Pro-B Natriuret Pep (<450) pg/mL Total Protein (6.3-8.2) g/dL Albumin (3.5-5.0) g/dL Globulin (1.7-4.1) g/dL Albumin/Globulin Ratio (1.0-2.8) Procalcitonin (<0.5) ng/mL Chlamy pneumoniae PCR (Not Detect) Adenovirus (PCR) (Not Detect) B. pertussis DNA (PCR) (Not Detecte) B.parapertussis DNA PCR (Not Detecte) Coronavirus OC43 (PCR) (Not Detect) Coronavirus HKU1 (PCR) (Not Detect) Coronavirus 229E (PCR) (Not Detect) SARS-CoV-2 (PCR) Positive H (Negative) Coronavirus NL63 (PCR) (Not Detect) Human Metapneumovir PCR (Not Detect) Influenza Type A (PCR) (Not Detect) Influenza Type B (PCR) (Not Detect) M. pneumoniae (PCR) (Not Detect) Parainfluenza 1 (PCR) (Not Detect) Parainfluenza 2 (PCR) (Not Detect) Parainfluenza 3 (PCR) (Not Detect) Parainfluenza 4 (PCR) (Not Detect) RSV (PCR) (Not Detect) Entero/Rhino (PCR) (Not Detect) 09/16/21 09/16/21 09/16/21 Range/Units 23:30 23:30 23:49 WBC (4.5-11.0) X10^3/uL RBC (4.5-5.9) X10^6/uL Hgb (13.5-17.5) g/dL Hct (41-53) % MCV (80-100) fL MCH (26-34) PG MCHC (30-36) % RDW (11.6-14.8) % Plt Count (150-400) X10^3/uL Neut % (Auto) (50-75) % Lymph % (Auto) (25-40) % [place] % (Auto) (3-14) % Eos % (Auto) (2-4) % Baso % (Auto) (0-2) % Neut # (Auto) (6231-7209) /uL Lymph # (Auto) (2118-4687) /uL [place] # (Auto) (0-900) /uL Eos # (Auto) (0-450) /uL Baso # (Auto) (0-100) /uL D-Dimer (<230) ng/mL Sodium 132 L (137-145) mmol/L Potassium 4.1 (3.4-5.1) mmol/L Chloride 101 (98-107) mmol/L Carbon Dioxide 28 (22-32) mmol/L BUN 34 H (9-20) mg/dL Creatinine 1.93 H (0.66-1.25) mg/dL Estimated GFR 33.5 L (>60) mL/min BUN/Creatinine Ratio 17.6 (6-22) Glucose 133 H (80-110) mg/dL Lactate 1.4 (0.7-2.1) mmol/L Calcium 8.7 (8.4-10.2) mg/dL Total Bilirubin 0.5 (0.2-1.3) mg/dL AST 49 (17-59) IU/L ALT 19 (<50) IU/L Alkaline Phosphatase 70 (38-126) U/L Total Creatine Kinase 166 (55-170) U/L CK-MB (CK-2) 0.76 (<2.37) ng/mL CK-MB (CK-2) Rel Index 0.5 L (1.5-5.0) % Troponin I 0.040 H (0.01-0.034) ng/mL NT-Pro-B Natriuret Pep 2960 H (<450) pg/mL Total Protein 6.3 (6.3-8.2) g/dL Albumin 3.3 L (3.5-5.0) g/dL Globulin 3.0 (1.7-4.1) g/dL Albumin/Globulin Ratio 1.1 (1.0-2.8) Procalcitonin 0.20 (<0.5) ng/mL Chlamy pneumoniae PCR Not detected (Not Detect) Adenovirus (PCR) Not detected (Not Detect) B. pertussis DNA (PCR) Not detected (Not Detecte) B.parapertussis DNA PCR Not detected (Not Detecte) Coronavirus OC43 (PCR) Not detected (Not Detect) Coronavirus HKU1 (PCR) Not detected (Not Detect) Coronavirus 229E (PCR) Not detected (Not Detect) SARS-CoV-2 (PCR) Detected H (Negative) Coronavirus NL63 (PCR) Not detected (Not Detect) Human Metapneumovir PCR Not detected (Not Detect) Influenza Type A (PCR) Not detected (Not Detect) Influenza Type B (PCR) Not detected (Not Detect) M. pneumoniae (PCR) Not detected (Not Detect) Parainfluenza 1 (PCR) Not detected (Not Detect) Parainfluenza 2 (PCR) Not detected (Not Detect) Parainfluenza 3 (PCR) Not detected (Not Detect) Parainfluenza 4 (PCR) Not detected (Not Detect) RSV (PCR) Not detected (Not Detect) Entero/Rhino (PCR) Not detected (Not Detect) Discharge Plan Departure Patient Disposition: Admitted As Inpatient Clinical Impression: COVID-19 Admit Date/Time: 09/17/21 03:10 Admit Provider: Sima Scott
[2021-09-16 23:30] VITALS: PULSE 84; O2SAT 95
[2021-09-16 23:36] LABS: COVID19 -Nasal RAPID POSITIVE (Negative)
[2021-09-16] MEDS: LACTATED RINGERS 907.18 ML IV (23:42)
[2021-09-16 23:47] LABS: Add Manual Diff / Slide Review NO; Basophils Absolute Auto 0 /uL (0-100); Basophils Percent Auto 0.5 % (0-2); Eosinophils Absolute Auto 0 /uL (0-450); Eosinophils Percent Auto 0.1 % (2-4); Hemoglobin 10.9 g/dL (13.5-17.5); Lymphocytes Absolute Auto 2000 /uL (1100-4500); Lymphocytes Percent Auto 25.2 % (25-40); Mean Corpuscular HGB Conc 33.9 % (30-36); Mean Corpuscular Hemoglobin 33.3 PG (26-34); Mean Corpuscular Volume 98.1 fL (80-100); Monocytes Absolute Auto 1000 /uL (0-900); Monocytes Percent Auto 11.8 % (3-14); Neutrophils Absolute Auto 5100 /uL (1500-7000); Neutrophils Percent Auto 62.4 % (50-75); Platelet Count 150 X10^3/uL (150-400); Red Blood Cell Count 3.26 X10^6/uL (4.5-5.9); Red Cell Distribution Width 13.3 % (11.6-14.8); White Blood Cell Count 8.1 X10^3/uL (4.5-11.0)
[2021-09-16 23:48] VITALS: BP 152/67; PULSE 85; O2SAT 95
[2021-09-16 23:52] LABS: Lactate (Lactic Acid) 1.4 mmol/L (0.7-2.1)
[2021-09-16 23:53] LABS: Alanine Aminotransferase 19 IU/L (<50); Albumin 3.3 g/dL (3.5-5.0); Albumin Globulin Ratio 1.1 (1.0-2.8); Alkaline Phosphatase 70 U/L (38-126); Aspartate Aminotransferase 49 IU/L (17-59); BUN Creatinine Ratio 17.6 (6-22); Bilirubin Total 0.5 mg/dL (0.2-1.3); Blood Urea Nitrogen 34 mg/dL (9-20); Calcium 8.7 mg/dL (8.4-10.2); Carbon Dioxide 28 mmol/L (22-32); Chloride 101 mmol/L (98-107); Creatine Kinase 166 U/L (55-170); Estimated Glomerular Filt Rate 33.5 mL/min (>60); Glucose 133 mg/dL (80-110); HEMOLYSIS < 15 (0-50); Potassium 4.1 mmol/L (3.4-5.1); Sodium 132 mmol/L (137-145); Total Protein 6.3 g/dL (6.3-8.2)
[2021-09-17] VITALS (39 sets, daily range): BP systolic 139–208; BP diastolic 74–98; PULSE 70–104; RESP 17–39; TEMP 36.2–37.2; O2SAT 85–99; BMI 29.5
[2021-09-17 00:04] LABS: NT-proBNP (BNP-Adult 18+) 2960 pg/mL (<450)
[2021-09-17 00:08] LABS: CKMB % Relative Index 0.5 % (1.5-5.0); Creatine Kinase MB 0.76 ng/mL (<2.37)
[2021-09-17 00:11] LABS: D Dimer 1207 ng/mL (<230)
--- NOTE | 2021-09-17 00:17 | DI.CT.S_ITS ---
PROCEDURE: CT ANGIO CHEST PE PROTOCOL INDICATIONS: hypoxemia, critical Dimer, lung transplant, septic TECHNIQUE: After the administration of intravenous contrast, 2 mm thick sections acquired from the pulmonary apices to the posterior costophrenic angles. 3-dimensional maximum intensity projection (MIP) coronal and sagittal reformats were then acquired through the thorax. For radiation dose reduction, the following was used: automated exposure control, adjustment of mA and/or kV according to patient size. COMPARISON: [facility], CT, CT CHEST WO CON, 09/18/2020, 15:18. [facility], CR, XR CHEST 1V, 09/16/2021, 23:22. FINDINGS: Image quality: Excellent. Pulmonary arteries: Pulmonary arteries demonstrate no central filling defects to suggest acute pulmonary emboli. No evidence for acute right-sided heart strain. Lungs and pleura: There are diffusely scattered bilateral ill-defined patchy and nodular consolidative opacities seen throughout the bilateral hemithoraces. Mild ground-glass opacities noted in the bilateral upper lobes. No substantial pleural effusions. No pneumothorax. Central and peripheral airways are patent. Stable postsurgical changes from reported history of prior lung transplant. Mediastinum: Heart size is mildly enlarged, without pericardial effusion. Extensive atherosclerotic calcifications are noted in the coronary arteries. No mediastinal or hilar adenopathy. Thoracic aorta is normal in caliber and enhancement. Esophagus demonstrates mild circumferential thickening distally with moderate thickening near the gastroesophageal junction. Small hiatal hernia. Bones and chest wall: No suspicious bony lesions. Stable postsurgical changes of the sternum. Bilateral gynecomastia. Ribs and thoracic spine appear intact throughout. Thyroid gland appears diminutive bilaterally. No axillary or supraclavicular adenopathy. Abdomen: Status post cholecystectomy. Visualized upper abdominal solid organs appear normal in the early arterial phase of enhancement. IMPRESSION: 1. No acute pulmonary emboli. No acute right-sided heart strain. 2. Diffusely scattered bilateral airspace consolidations and ground-glass opacities compatible with history of COVID-19 infection. 3. Small hiatal hernia with diffuse wall thickening of the distal esophagus most pronounced near the gastroesophageal junction. Findings may represent sequela of gastroesophageal reflux. Consider outpatient direct visualization for further evaluation. 4. Stable postsurgical changes from prior bilateral lung transplant. 5. Atherosclerotic vascular disease. 6. Cardiomegaly. Dictated by: London Bernstein M.D. on 09/17/2021 at 1:05 Approved by: London Bernstein M.D. on 09/17/2021 at 1:13
[2021-09-17 01:00] LABS: Adenovirus Not Detected (Not Detect)
[2021-09-17 01:02] LABS: B. parapertussis Not Detected (Not Detecte); Bordetella pertussis Not Detected (Not Detecte); Chlamydophila pneumoniae Not Detected (Not Detect); Coronavirus 229E Not Detected (Not Detect); Coronavirus HKU1 Not Detected (Not Detect); Coronavirus NL 63 Not Detected (Not Detect); Coronavirus OC43 Not Detected (Not Detect); Human Metapneumovirus Not Detected (Not Detect); Human Rhinovirus/Enterovirus Not Detected (Not Detect); Influenza A Not Detected (Not Detect); Influenza B Not Detected (Not Detect); Mycoplasma pneumoniae Not Detected (Not Detect); Parainfluenza Virus 1 Not Detected (Not Detect); Parainfluenza Virus 2 Not Detected (Not Detect); Parainfluenza Virus 3 Not Detected (Not Detect); Parainfluenza Virus 4 Not Detected (Not Detect); Respiratory Syncytial Virus Not Detected (Not Detect); SARS- CoV-2 Detected (Not Detecte)
[2021-09-17] MEDS: REMDESIVIR 200 MG in SODIUM CHLORIDE 0.9% 210 ML 250 ML IV (01:28)
[2021-09-17] MEDS: DEXAMETHASONE 10 MG/ML VIAL 6 MG IV ×2 (01:28→09:15)
--- NOTE | 2021-09-17 03:34 | P.HP_ITS ---
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 He also started to cough up bloody sputum while in the emergency department just shortly after I entered the room. Patient is fully vaccinated as well as his . He denies fever or chills, he does feel like he is short of breath with exertion, denies nausea vomiting, denies chest pain, denies dysuria, has chronic soft stools and denies constipation. In the emergency department he underwent having a chest x-ray which appeared to be a pneumonia. Due to an elevated D-dimer he was scanned for PE and that was negative but commented that he had ground-glass opacities consistent with COVID 19. Patient's T-max was 101.1?, currently it is 99.9, blood pressure 157/85, respiratory rate 25, oxygen saturation 98% on room air he weighs 98.7 kg with a BMI of 29.5. He has a platelet count of 135 lymphocyte count of 1000, D-dimer of 1207, sodium 130, creatinine of 1.52 with the EGFR 44.1 which is actually l ower than his baseline, glucose 185, A1c 7.3, calcium 8.0, magnesium 1.4, but troponin 0.04, proBNP of 29 60, albumin of 2.9 and COVID-19 PCR is positive. Patient History Medical History Anemia Coronary artery disease Diabetes Hyperlipidemia Hypertension Tubular adenoma of colon Surgical History H/O lung transplant Family & Social History Family History (Updated 09/17/21 @ 08:31 by VLDA Josue) Father Patient denies significant medical history Mother Patient denies significant medical history Social History: household members spouse Safety & Behavioral: Feels Safe in Current Yes Environment Tobacco & Substance use: Smoking Status Never smoker alcohol intake current Meds Home Medications and Allergies Home Medications Medication Instructions Recorded Confirmed Type azithromycin 500 mg tablet 500 mg PO DIRECTED 09/18/20 09/18/20 History carvedilol 3.125 mg tablet 3.125 mg PO BID 09/18/20 09/18/20 History itraconazole 100 mg capsule 100 mg PO BID 09/18/20 09/18/20 History levothyroxine 137 mcg tablet 137 mcg PO QAM 09/18/20 09/18/20 History prednisone 5 mg tablet 5 mg PO DAILY 09/18/20 09/18/20 History sitagliptin 50 mg tablet (Januvia) 50 mg PO DAILY 09/18/20 09/18/20 History sulfamethoxazole 800 0.5 tab PO DIRECTED 09/18/20 09/18/20 History mg-trimethoprim 160 mg tablet tacrolimus 0.5 mg capsule, 0.5 mg PO QPM 09/18/20 09/18/20 History immediate-release tacrolimus 1 mg capsule, 1 mg PO QAM 09/18/20 09/18/20 History immediate-release valganciclovir 450 mg tablet 450 mg PO DAILY 09/18/20 09/18/20 History Allergies Allergy/AdvReac Type Severity Reaction Status Date / Time No Known Drug Allergies Allergy Verified 09/18/20 12:38 Review of Systems Review of Systems ROS: Yes All systems reviewed with the patient and are negative except as other santa documented Exam Vital Signs (past 8 hours): - 09/16/21 22:59 09/16/21 23:10 09/16/21 23:30 Temperature 99.9 F H Pulse Rate 88 86 84 Respiratory Rate 18 Blood Pressure 139/68 Pulse Oximetry 86 L 93 95 09/16/21 23:48 09/17/21 00:00 09/17/21 00:20 Temperature Pulse Rate 85 102 H 91 H Respiratory Rate 19 Blood Pressure 152/67 H 161/74 H Pulse Oximetry 95 94 92 09/17/21 00:38 09/17/21 00:43 09/17/21 01:00 Temperature Pulse Rate 95 H 89 104 H Respiratory Rate 28 H 23 Blood Pressure 174/79 H 185/89 H Pulse Oximetry 93 91 94 09/17/21 01:30 09/17/21 02:00 09/17/21 02:01 Temperature Pulse Rate 90 96 H 96 H Respiratory Rate 21 36 H 30 H Blood Pressure 202/98 H 183/87 H Pulse Oximetry 98 85 L 92 09/17/21 02:30 09/17/21 02:31 Temperature Pulse Rate 100 H 102 H Respiratory Rate 39 H 33 H Blood Pressure 208/91 H Pulse Oximetry 92 Oxygen Delivery Method Room Air Narrative Exam Narrative: Gen: Alert, oriented, ill appearing 80 y.o. male HEENT: normocephalic, atraumatic, conjunctiva clear, sclera non-icteric, oral mucosa pink and moist Neck: supple, full ROM, no JVD, trachea is midline Resp: Diminished lung sounds, non-labored breathing CV: RRR, no murmur or rubs Abd: soft, non-tender, normoactive BTs Skin: thin and friable with multiple bruises Neuro: Lethargic, alert and oriented X 4 w/no focal deficits. Speech clear and c oherent. Extremities: moves all 4 extremities, is ambulatory, negative Chao?s sign Psyche: normal mood and affect. Objective Labs Result Diagrams: 09/17/21 05:45 09/17/21 05:45 Labs: Laboratory Results - last 24 hr 09/16/21 09/16/21 09/16/21 23:15 23:30 23:30 WBC 8.1 RBC 3.26 L Hgb 10.9 L Hct 32.0 L MCV 98.1 MCH 33.3 MCHC 33.9 RDW 13.3 Plt Count 150 Neut % (Auto) 62.4 Lymph % (Auto) 25.2 [place] % (Auto) 11.8 Eos % (Auto) 0.1 L Baso % (Auto) 0.5 Neut # (Auto) 5100 Lymph # (Auto) 2000 [place] # (Auto) 1000 H Eos # (Auto) 0 Baso # (Auto) 0 D-Dimer 1207 H Sodium Potassium Chloride Carbon Dioxide BUN Creatinine Estimated GFR BUN/Creatinine Ratio Glucose Lactate Calcium Total Bilirubin AST ALT Alkaline Phosphatase Total Creatine Kinase CK-MB (CK-2) CK-MB (CK-2) Rel Index Troponin I NT-Pro-B Natriuret Pep Total Protein Albumin Globulin Albumin/Globulin Ratio Procalcitonin Chlamy pneumoniae PCR Adenovirus (PCR) B. pertussis DNA (PCR) B.parapertussis DNA PCR Coronavirus OC43 (PCR) Coronavirus HKU1 (PCR) Coronavirus 229E (PCR) SARS-CoV-2 (PCR) Positive H Coronavirus NL63 (PCR) Human Metapneumovir PCR Influenza Type A (PCR) Influenza Type B (PCR) M. pneumoniae (PCR) Parainfluenza 1 (PCR) Parainfluenza 2 (PCR) Parainfluenza 3 (PCR) Parainfluenza 4 (PCR) RSV (PCR) Entero/Rhino (PCR) 09/16/21 09/16/21 09/16/21 23:30 23:30 23:49 WBC RBC Hgb Hct MCV MCH MCHC RDW Plt Count Neut % (Auto) Lymph % (Auto) [place] % (Auto) Eos % (Auto) Baso % (Auto) Neut # (Auto) Lymph # (Auto) [place] # (Auto) Eos # (Auto) Baso # (Auto) D-Dimer Sodium 132 L Potassium 4.1 Chloride 101 Carbon Dioxide 28 BUN 34 H Creatinine 1.93 H Estimated GFR 33.5 L BUN/Creatinine Ratio 17.6 Glucose 133 H Lactate 1.4 Calcium 8.7 Total Bilirubin 0.5 AST 49 ALT 19 Alkaline Phosphatase 70 Total Creatine Kinase 166 CK-MB (CK-2) 0.76 CK-MB (CK-2) Rel Index 0.5 L Troponin I 0.040 H NT-Pro-B Natriuret Pep 2960 H Total Protein 6.3 Albumin 3.3 L Globulin 3.0 Albumin/Globulin Ratio 1.1 Procalcitonin 0.20 Chlamy pneumoniae PCR Not detected Adenovirus (PCR) Not detected B. pertussis DNA (PCR) Not detected B.parapertussis DNA PCR Not detected Coronavirus OC43 (PCR) Not detected Coronavirus HKU1 (PCR) Not detected Coronavirus 229E (PCR) Not detected SARS-CoV-2 (PCR) Detected H Coronavirus NL63 (PCR) Not detected Human Metapneumovir PCR Not detected Influenza Type A (PCR) Not detected Influenza Type B (PCR) Not detected M. pneumoniae (PCR) Not detected Parainfluenza 1 (PCR) Not detected Parainfluenza 2 (PCR) Not detected Parainfluenza 3 (PCR) Not detected Parainfluenza 4 (PCR) Not detected RSV (PCR) Not detected Entero/Rhino (PCR) Not detected Assessment & Plan Assessment & Plan narrative: Darryl Jacobs is admitted for management of COVID-19 Pneumonia 1. COVID-19 Pneumonia, acute, present on admission * Patient was administered loading dose of IV Remdesevir 200 mg and dexamethasone 6 mg in the ED * Continue IV Remdesevir 100 mg and dexamethasone 6 mg the following day * Patient has been vaccinated. * Immune suppression a big factor in developing symptomatic COVID-19 2. Essential Hypertension * Continue home dose of carvedilol 3.125 po bid 3. Hypothyroidism, chronic * Continue home dose of levothyroxine 112 mcg po at 0600 4. History of a double lung transplant * Continue home dose of tacrolimus 1 mg p.o. twice daily * Holding prednisone for now as he is receiving dexamethasone * Continue home dose of valganciclovir 450 mg once daily and will need to take patient is on medication for CMV transplant prophylaxis 5. Hemoptysis, present on admission * Holding pharmacological anticoagulation * Monitor blood count daily * If worsening, may consider consultation w/his pulminologist Dr. Yeung at [facility] VTE Prophylaxis: Wells risk score 2.5 Pharmacological contraindication due to hemoptysis Bilateral SCDs Patient is admitted to the inpatient service due to the severity of disease, risks of further disease progression and this stay is expected to exceed 2 midn ights. FEN: IV fluids: saline lock, diet: diabetic diet, labs: CBC, C/BMP, liver enzymes, Mag Consultants None Dispo: unknown at this time Code status: DNR/DNI as discussed with the patient who identifies his Rhiannon as his surrogate and POA. [X] I have utilized all available immediate resources to obtain, update, or review of the patient's current medications COVID-19 COVID-19 status: Positive Result date/Date tested (Pos, Neg/Pending): 09/17/21 Time Spent With Patient Critical Care time: I spent a total of [] minutes of critical care time on this patient's care today; this time is exclusive of procedural time. Scores Wells' Criteria for PE Clinical signs and symptoms of DVT: No PE is #1 Dx or equally likely: No Heart rate > 100: No Immobilization at least 3 days or surg in previous 4 weeks: Yes History of PE or DVT: No Hemoptysis: Yes Malignancy w/Treatment within 6 months or palliative: No Wells' PE Score total: 2.5 Quality MIPS - Admit I confirm the patient?s Advance Care Plan is present, Code status is documented, Surrogate decision maker is in patient?s record [If Yes, STOP here]: Yes MIPS - DC The patient has current or prior documentation of left ventricular ejection fraction (LVEF) less than 40%, or moderate or severely depressed left ventricu lar systolic function.: No
[2021-09-17 05:56] LABS: Add Manual Diff / Slide Review NO; Basophils Absolute Auto 0 /uL (0-100); Basophils Percent Auto 0.2 % (0-2); Eosinophils Absolute Auto 0 /uL (0-450); Hemoglobin 10.2 g/dL (13.5-17.5); Lymphocytes Absolute Auto 1000 /uL (1100-4500); Lymphocytes Percent Auto 14.7 % (25-40); Mean Corpuscular HGB Conc 34.1 % (30-36); Mean Corpuscular Hemoglobin 33.3 PG (26-34); Mean Corpuscular Volume 97.7 fL (80-100); Monocytes Absolute Auto 500 /uL (0-900); Monocytes Percent Auto 7.6 % (3-14); Neutrophils Absolute Auto 5400 /uL (1500-7000); Neutrophils Percent Auto 77.5 % (50-75); Platelet Count 135 X10^3/uL (150-400); Red Blood Cell Count 3.07 X10^6/uL (4.5-5.9); Red Cell Distribution Width 13.7 % (11.6-14.8)
[2021-09-17 06:05] LABS: Alanine Aminotransferase 18 IU/L (<50); Albumin 2.9 g/dL (3.5-5.0); Albumin Globulin Ratio 1.1 (1.0-2.8); Alkaline Phosphatase 59 U/L (38-126); Aspartate Aminotransferase 55 IU/L (17-59); Bilirubin Total 0.5 mg/dL (0.2-1.3); Bilirubin Unconjugated 0.4 mg/dL (0.0-1.1); Globulin 2.7 g/dL (1.7-4.1); HEMOLYSIS < 15 (0-50); Total Protein 5.6 g/dL (6.3-8.2)
[2021-09-17 06:10] LABS: BUN Creatinine Ratio 18.4 (6-22); Blood Urea Nitrogen 28 mg/dL (9-20); Carbon Dioxide 26 mmol/L (22-32); Chloride 100 mmol/L (98-107); Estimated Glomerular Filt Rate 44.1 mL/min (>60); Glucose 185 mg/dL (80-110); HEMOLYSIS < 15 (0-50); Magnesium 1.4 mg/dL (1.6-2.3); Potassium 4.3 mmol/L (3.4-5.1); Sodium 130 mmol/L (137-145)
[2021-09-17] MEDS: LEVOTHYROXINE 150 MCG TABLET PO (06:15)
[2021-09-17 06:54] LABS: Hemoglobin A1C% w Est Avg Glu 7.3 % (4.0-6.0)
[2021-09-17] MEDS: REMDESIVIR 100 MG in SODIUM CHLORIDE 0.9% 230 ML 250 ML IV (09:13)
[2021-09-17] MEDS: carvediloL 3.125 MG TABLET PO ×2 (09:14→21:37)
[2021-09-17] MEDS: TACROLIMUS 0.5 MG CAPSULE 1 MG PO (09:15)
[2021-09-17] MEDS: MAGNESIUM SULFATE 2 GM/50 ML PIGGYBACK IV (09:16)
[2021-09-17] MEDS: INSULIN LISPRO 100 UNIT/ML 3ML VIAL SUBCUT ×2 (17:18→21:35)
[2021-09-17] MEDS: guaiFENesin Solution 100 MG/5 ML UDC 200 MG PO (17:18)
[2021-09-17] MEDS: TACROLIMUS 0.5 MG CAPSULE PO (17:18)
[2021-09-17] MEDS: INSULIN GLARGINE 100 UNIT/ML 3ML PEN 8 UNIT SUBCUT (21:35)
[2021-09-17] MEDS: guaiFENesin ER 600 MG TAB PO (21:37)
--- NOTE | 2021-09-17 22:58 | PC.NURSE ---
Pt has a telemetry order from the ER. Spoke to HANS Scott who said we can discontinue telemetry (will discontinue once we go in the room since patient in on COVID ISOLATION)
[2021-09-18] VITALS (9 sets, daily range): BP systolic 126–155; BP diastolic 78–97; PULSE 66–88; RESP 17–18; TEMP 36.1–36.6; O2SAT 91–96
[2021-09-18] MEDS: LEVOTHYROXINE 150 MCG TABLET PO (06:00)
[2021-09-18] MEDS: INSULIN LISPRO 100 UNIT/ML 3ML VIAL SUBCUT ×4 (08:29→20:57)
[2021-09-18] MEDS: DEXAMETHASONE 10 MG/ML VIAL 6 MG IV (08:31)
[2021-09-18] MEDS: carvediloL 3.125 MG TABLET PO ×2 (08:31→20:56)
[2021-09-18] MEDS: ENOXAPARIN 40 MG/0.4 ML SYRINGE SUBCUT (08:32)
[2021-09-18] MEDS: guaiFENesin ER 600 MG TAB PO ×2 (08:33→20:57)
[2021-09-18] MEDS: TACROLIMUS 0.5 MG CAPSULE 1 MG PO (08:33)
[2021-09-18] MEDS: REMDESIVIR 100 MG in SODIUM CHLORIDE 0.9% 230 ML 250 ML IV (08:37)
[2021-09-18 09:20] LABS: PTT Partial Thromboplastin Tim 27 SECONDS (26.4-36.2)
[2021-09-18 09:22] LABS: Alanine Aminotransferase 26 IU/L (<50); Albumin Globulin Ratio 1.1 (1.0-2.8); Alkaline Phosphatase 62 U/L (38-126); Aspartate Aminotransferase 80 IU/L (17-59); Bilirubin Total 0.6 mg/dL (0.2-1.3); Bilirubin Unconjugated 0.5 mg/dL (0.0-1.1); Globulin 2.8 g/dL (1.7-4.1); HEMOLYSIS < 15 (0-50); Total Protein 5.8 g/dL (6.3-8.2)
[2021-09-18 09:23] LABS: BUN Creatinine Ratio 27.4 (6-22); Blood Urea Nitrogen 40 mg/dL (9-20); Carbon Dioxide 22 mmol/L (22-32); Chloride 104 mmol/L (98-107); Estimated Glomerular Filt Rate 46.2 mL/min (>60); Glucose 216 mg/dL (80-110); HEMOLYSIS < 15 (0-50); Magnesium 2.2 mg/dL (1.6-2.3); Potassium 4.2 mmol/L (3.4-5.1); Sodium 134 mmol/L (137-145)
[2021-09-18 09:31] LABS: Add Manual Diff / Slide Review NO; Basophils Absolute Auto 0 /uL (0-100); Basophils Percent Auto 0.1 % (0-2); Eosinophils Absolute Auto 0 /uL (0-450); Eosinophils Percent Auto 0.1 % (2-4); Hematocrit 31.8 % (41-53); Hemoglobin 10.8 g/dL (13.5-17.5); Lymphocytes Absolute Auto 1200 /uL (1100-4500); Lymphocytes Percent Auto 11.8 % (25-40); Mean Corpuscular HGB Conc 33.8 % (30-36); Mean Corpuscular Hemoglobin 33.2 PG (26-34); Mean Corpuscular Volume 98.2 fL (80-100); Monocytes Absolute Auto 800 /uL (0-900); Monocytes Percent Auto 8.1 % (3-14); Neutrophils Absolute Auto 8000 /uL (1500-7000); Neutrophils Percent Auto 79.9 % (50-75); Platelet Count 164 X10^3/uL (150-400); Red Blood Cell Count 3.24 X10^6/uL (4.5-5.9); Red Cell Distribution Width 13.8 % (11.6-14.8)
--- NOTE | 2021-09-18 11:43 | CM.DANOTE ---
DCP: Case received, EMR reviewed and called patient, since he is COVID positive. Called patient in his room. Introduced self and role. Was able to obtain information from patient regarding his baseline activity level at home. DCP assessment completed with information currently available. Patient is an 80 year old male who admitted yesterday morning to the care of the hospitalist team. PCP: Dr. Morgan. Payer: confirmed: Medicare/[employer]. Patient came to the hospital secondary to having increased weakness, cough and chills. Patient was diagnosed with COVID Pneumonia. Patient had history of double lung transplant after chemical exposure that occurred approximately 10 years. He has been getting his primary care in [place], according to notes. Patient was fully vaccinated. According to team rounds, patient was improving on his oxygenation, and could possibly go home today. Called patient in his room. He is alert and oriented, pleasant on the phone. He and his spouse reside here in [place], and he is independent at his baseline. P: DCP to continue to follow. Patient should be able to go home when he is deemed medically stable. Heidi Kenny RN/Furniture Painter Discharge Planning/Care Management CM Discharge Assessment Start: 09/18/21 11:22 Freq: Status: Active Protocol: Document 09/18/21 11:26 (Rec: 09/18/21 11:43 [id number]) Discharge Planning Assessment Assigned Painting Contractor Heidi Kenny RN/Furniture Painter Advance Directives? Yes Advance Directives on File No History Provided By Patient,Medical Record Household Members spouse Type of transporation used prior to Drives own vehicle admit Independent with ADL's Yes Is patient alert and oriented? Yes Caregiver for Another No Barriers to Discharge No Discharge Plan Home Transportation Arrangement Spouse Referrals Initiated None needed Whiteboard Updated in Patient Room with No name and ext. # of Painting Contractor Comment Patient has COVID, did not enter room. Review Status In Process Next Review Type Continued Stay Review
--- NOTE | 2021-09-18 12:27 | PC.NURSE ---
Patient A/O x 3. Denies feeling SOB, maintains 92% on room air while at rest, with activity maintains 90% on room air. Lungs CTA, diminished in R base. Patient denies sternal pain, reports cough, intermittent, productive, patient reported he experienced hemoptysis yesterday but has had none today. Remains saline locked except for intermittent medication. Tolerating diet, BT active x 4, voiding without complication. Skin tears and bruising noted on R Forearm, covered with allyvn x 2. Patient tolerated. Home medications brought in, Pharmacist notified, he will take them for verification. Medications include patients Valganciclovir. Call light, phone and pt belongings remains in reach. Patient educated on safety in the room, told to call us if he feels lightheaded, dizzy or SOB. Patient verbalized understanding. Patient denies further needs at this time. Will continue to monitor.
--- NOTE | 2021-09-18 16:02 | P.PN_ITS ---
Subjective Subjective Date Patient Seen: 09/18/21 Interval history: 80-year-old male with a history of a double lung transplant admitted to the hospital with acute respiratory failure due to COVID pneumonia. Patient reports he continues to have a cough. Shortness of breath improves. However with minimal exertion the patient desaturates to O2 sat of 89-90%. Exam Vital Signs (past 8 hours): - 09/18/21 08:31 09/18/21 10:27 09/18/21 12:30 Temperature 97.4 F L Pulse Rate 83 83 70 Respiratory Rate 17 18 Blood Pressure 126/78 138/78 Pulse Oximetry 92 96 Oxygen Delivery Method Room Air Oxygen Flow Rate 2 Narrative Exam Narrative: Pleasant ill-appearing male lying in bed Resp Other: Lungs decreased breath sounds Cardio Other: Cardiac exam: Regular rate and rhythm normal S1-S2 with a 2/6 systolic ejection murmur GI Other: Abdomen: Soft nontender nondistended Extrem Other: Extremities: No edema Objective Labs Result Diagrams: 09/18/21 09:05 09/18/21 09:05 Labs: Laboratory Results - last 24 hr 09/18/21 09/18/21 09/18/21 09:05 09:05 09:05 WBC 10.0 RBC 3.24 L Hgb 10.8 L Hct 31.8 L MCV 98.2 MCH 33.2 MCHC 33.8 RDW 13.8 Plt Count 164 Neut % (Auto) 79.9 H Lymph % (Auto) 11.8 L [place] % (Auto) 8.1 Eos % (Auto) 0.1 L Baso % (Auto) 0.1 Neut # (Auto) 8000 H Lymph # (Auto) 1200 [place] # (Auto) 800 Eos # (Auto) 0 Baso # (Auto) 0 APTT Sodium 134 L Potassium 4.2 Chloride 104 Carbon Dioxide 22 BUN 40 H Creatinine 1.46 H Estimated GFR 46.2 L BUN/Creatinine Ratio 27.4 H Glucose 216 H Calcium 8.0 L Magnesium 2.2 Total Bilirubin 0.6 Conjugated Bilirubin 0.0 Unconjugated Bilirubin 0.5 AST 80 H ALT 26 Alkaline Phosphatase 62 Total Protein 5.8 L Albumin 3.0 L Globulin 2.8 Albumin/Globulin Ratio 1.1 09/18/21 09:05 WBC RBC Hgb Hct MCV MCH MCHC RDW Plt Count Neut % (Auto) Lymph % (Auto) [place] % (Auto) Eos % (Auto) Baso % (Auto) Neut # (Auto) Lymph # (Auto) [place] # (Auto) Eos # (Auto) Baso # (Auto) APTT 27 Sodium Potassium Chloride Carbon Dioxide BUN Creatinine Estimated GFR BUN/Creatinine Ratio Glucose Calcium Magnesium Total Bilirubin Conjugated Bilirubin Unconjugated Bilirubin AST ALT Alkaline Phosphatase Total Protein Albumin Globulin Albumin/Globulin Ratio [facility] Medical History Anemia Coronary artery disease Diabetes Hyperlipidemia Hypertension Tubular adenoma of colon Surgical History H/O lung transplant Family History (Updated 09/17/21 @ 08:31 by VLAD Josue) Father Patient denies significant medical history Mother Patient denies significant medical history Social History marital status: household members: spouse Smoking Status: Never smoker alcohol intake: current Assessment & Plan Assessment & Plan narrative: ?COVID-19 Pneumonia, acute, present on admission * Patient was administered loading dose of IV Remdesevir 200 mg and dexamethasone 6 mg in the ED * Continue? IV Remdesevir 100 mg and dexamethasone 6 mg the following day * Patient has been vaccinated. * Immune suppression a big factor in developing symptomatic COVID-19 * Patient remains hypoxic, will continue treatment until he is no longer hypoxic or has had 5 days of therapy at which point he would be eligible for discharge home on home oxygen * Will continue cough suppressant as this setting teams to be the most difficult symptom for him 2. Essential Hypertension * Continue home dose of carvedilol 3.125 po bid 3. Hypothyroidism, chronic * Continue home dose of levothyroxine 112 mcg po at 0600 4. History of a double lung transplant * Continue home dose of tacrolimus 1 mg p.o. twice daily * Holding prednisone for now as he is receiving dexamethasone * Continue home dose of valganciclovir 450 mg once daily and will need to take patient is on medication for CMV transplant prophylaxis 5. Hemoptysis, present on admission * Likely secondary to coughing, will continue monitor closely Time Spent With Patient Critical Care time: I spent a total of [] minutes of critical care time on this patient's care today; this time is exclusive of procedural time. Quality VTE Deep Vein Thrombosis/Pulmonary Embolism Present on Admission: No
[2021-09-18] MEDS: TACROLIMUS 0.5 MG CAPSULE PO (17:13)
[2021-09-18] MEDS: CODEINE/GUAIFENESIN LIQUID 5ML UDC 10 ML PO (17:17)
[2021-09-18] MEDS: INSULIN GLARGINE 100 UNIT/ML 3ML PEN 8 UNIT SUBCUT (20:57)
[2021-09-18] MEDS: ITRACONAZOLE 100 MG 100 EACH PO (20:58)
[2021-09-18] MEDS: SODIUM CHLORIDE 0.9% FLUSH 10 ML IV (21:00)
[2021-09-19] VITALS (9 sets, daily range): BP systolic 122–156; BP diastolic 64–84; PULSE 60–72; RESP 16–20; TEMP 35.6–37.1; O2SAT 92–97
[2021-09-19 05:46] LABS: Add Manual Diff / Slide Review NO; Basophils Absolute Auto 0 /uL (0-100); Basophils Percent Auto 0.1 % (0-2); Eosinophils Absolute Auto 0 /uL (0-450); Hematocrit 30.9 % (41-53); Hemoglobin 10.5 g/dL (13.5-17.5); Lymphocytes Absolute Auto 1000 /uL (1100-4500); Lymphocytes Percent Auto 7.6 % (25-40); Mean Corpuscular HGB Conc 33.9 % (30-36); Mean Corpuscular Hemoglobin 33.1 PG (26-34); Mean Corpuscular Volume 97.6 fL (80-100); Monocytes Absolute Auto 800 /uL (0-900); Monocytes Percent Auto 6.8 % (3-14); Neutrophils Absolute Auto 10700 /uL (1500-7000); Neutrophils Percent Auto 85.5 % (50-75); Platelet Count 172 X10^3/uL (150-400); Red Blood Cell Count 3.17 X10^6/uL (4.5-5.9); Red Cell Distribution Width 13.7 % (11.6-14.8); White Blood Cell Count 12.5 X10^3/uL (4.5-11.0)
[2021-09-19 05:55] LABS: Alanine Aminotransferase 29 IU/L (<50); Albumin 2.8 g/dL (3.5-5.0); Alkaline Phosphatase 61 U/L (38-126); Aspartate Aminotransferase 87 IU/L (17-59); BUN Creatinine Ratio 31.6 (6-22); Bilirubin Total 0.6 mg/dL (0.2-1.3); Bilirubin Unconjugated 0.5 mg/dL (0.0-1.1); Blood Urea Nitrogen 48 mg/dL (9-20); Calcium 8.1 mg/dL (8.4-10.2); Carbon Dioxide 26 mmol/L (22-32); Chloride 103 mmol/L (98-107); Estimated Glomerular Filt Rate 44.1 mL/min (>60); Globulin 2.8 g/dL (1.7-4.1); Glucose 248 mg/dL (80-110); HEMOLYSIS 33 (0-50); HEMOLYSIS < 15 (0-50); Potassium 4.7 mmol/L (3.4-5.1); Sodium 132 mmol/L (137-145); Total Protein 5.6 g/dL (6.3-8.2)
[2021-09-19] MEDS: LEVOTHYROXINE 150 MCG TABLET PO (06:19)
[2021-09-19] MEDS: INSULIN LISPRO 100 UNIT/ML 3ML VIAL SUBCUT ×4 (08:47→20:45)
[2021-09-19] MEDS: DEXAMETHASONE 10 MG/ML VIAL 6 MG IV (08:49)
[2021-09-19] MEDS: carvediloL 3.125 MG TABLET PO ×2 (08:51→20:43)
[2021-09-19] MEDS: ENOXAPARIN 40 MG/0.4 ML SYRINGE SUBCUT (08:51)
[2021-09-19] MEDS: guaiFENesin ER 600 MG TAB PO ×2 (08:51→20:43)
[2021-09-19] MEDS: VALGANCICLOVIR 450 MG 450 EACH PO (08:52)
[2021-09-19] MEDS: SODIUM CHLORIDE 0.9% FLUSH 10 ML IV ×2 (08:59→20:48)
[2021-09-19] MEDS: TACROLIMUS 0.5 MG CAPSULE 1 MG PO (08:59)
[2021-09-19] MEDS: ITRACONAZOLE 100 MG 100 EACH PO ×2 (09:00→20:44)
[2021-09-19] MEDS: REMDESIVIR 100 MG in SODIUM CHLORIDE 0.9% 230 ML 250 ML IV (09:03)
--- NOTE | 2021-09-19 14:57 | P.PN_ITS ---
Subjective Subjective Date Patient Seen: 09/19/21 Time Patient Seen: 14:57 Interval history: 80 /o male with a double lung transplanat, vaccinated, admitted with acute hypoxic respiratory failure secondary to Covid-19 pneumonia. Patient continues to have a cough, he desaturates to 87 % with minimal activity. Exam Vital Signs (past 8 hours): - 09/19/21 08:00 09/19/21 08:30 09/19/21 12:00 Temperature 97.2 F L 96.1 F L Pulse Rate 66 66 70 Respiratory Rate 16 16 16 Blood Pressure 149/82 H 122/64 Pulse Oximetry 94 94 97 Oxygen Delivery Method Nasal Cannula Oxygen Flow Rate 2 Narrative Exam Narrative: Pleasant male in no acute distress Resp Other: Lungs: decreased breath sounds but clear to auscultation Cardio Other: Regular rate and rhythm normal S1-S2 GI Other: Abdomen soft nontender nondistended Extrem Other: Extremity no edema Objective Labs Result Diagrams: 09/19/21 05:25 09/19/21 05:25 Labs: Laboratory Results - last 24 hr 09/19/21 09/19/21 09/19/21 05:25 05:25 05:25 WBC 12.5 H RBC 3.17 L Hgb 10.5 L Hct 30.9 L MCV 97.6 MCH 33.1 MCHC 33.9 RDW 13.7 Plt Count 172 Neut % (Auto) 85.5 H Lymph % (Auto) 7.6 L [place] % (Auto) 6.8 Eos % (Auto) 0.0 L Baso % (Auto) 0.1 Neut # (Auto) 59435 H Lymph # (Auto) 1000 L [place] # (Auto) 800 Eos # (Auto) 0 Baso # (Auto) 0 Sodium 132 L Potassium 4.7 Chloride 103 Carbon Dioxide 26 BUN 48 H Creatinine 1.52 H Estimated GFR 44.1 L BUN/Creatinine Ratio 31.6 H Glucose 248 H Calcium 8.1 L Magnesium 2.0 Total Bilirubin 0.6 Conjugated Bilirubin 0.0 Unconjugated Bilirubin 0.5 AST 87 H ALT 29 Alkaline Phosphatase 61 Total Protein 5.6 L Albumin 2.8 L Globulin 2.8 Albumin/Globulin Ratio 1.0 PFSH Medical History Anemia Coronary artery disease Diabetes Hyperlipidemia Hypertension Tubular adenoma of colon Surgical History H/O lung transplant Family History (Updated 09/17/21 @ 08:31 by VLAD Josue) Father Patient denies significant medical history Mother Patient denies significant medical history Social History marital status: household members: spouse Smoking Status: Never smoker alcohol intake: current Assessment & Plan Assessment & Plan narrative: ?COVID-19 Pneumonia, acute, present on admission * Patient was administered loading dose of IV Remdesevir 200 mg and dexamethasone 6 mg in the ED * Continue? IV Remdesevir 100 mg and dexamethasone 6 mg the following day * Patient has been vaccinated. * Immune suppression a big factor in developing symptomatic COVID-19 * Patient remains hypoxic, will continue treatment until he is no longer hypoxic or has had 5 days of therapy at which point he would be eligible for discharge home on home oxygen * Will continue cough suppressant as this setting teams to be the most difficult symptom for him2. Essential Hypertension * Continue home dose of carvedilol 3.125 po bid3. Hypothyroidism, chronic * Continue home dose [place] [address] [place] [id number]. History of a double lung transplant * Continue home dose of tacrolimus 1 mg p.o. twice daily * Holding prednisone for now as he is receiving dexamethasone * Continue home dose of valganciclovir 450 mg once daily and will need to take patient is on medication for CMV transplant prophylaxis5. Hemoptysis, present on admission * Likely secondary to coughing, will continue monitor closely * Patient remains hypoxic at rest and with minimal activity * Goals are to continue treatment for 5 days total of remdesivir and Decadron * At the end of 5 days she remained hypoxic he can be discharged home on home O2 provided he is requiring 4 L of oxygen her last * Time Spent With Patient Critical Care time: I spent a total of [] minutes of critical care time on this patient's care today; this time is exclusive of procedural time. Quality VTE Deep Vein Thrombosis/Pulmonary Embolism Present on Admission: No
[2021-09-19] MEDS: TRIMETH/SULFA 160/800 (DS) TABLET 0.5 TAB PO (16:10)
[2021-09-19] MEDS: AZITHROMYCIN 250 MG TABLET 500 MG PO (16:10)
[2021-09-19] MEDS: TACROLIMUS 0.5 MG CAPSULE PO (17:11)
[2021-09-19] MEDS: CODEINE/GUAIFENESIN LIQUID 5ML UDC 10 ML PO (20:43)
[2021-09-19] MEDS: INSULIN GLARGINE 100 UNIT/ML 3ML PEN 8 UNIT SUBCUT (20:44)
[2021-09-20] MEDS: LEVOTHYROXINE 150 MCG TABLET PO (06:27)
[2021-09-20 08:00] VITALS: BP 155/76; PULSE 59; RESP 16; TEMP 36.6; O2SAT 93
[2021-09-20] MEDS: INSULIN LISPRO 100 UNIT/ML 3ML VIAL SUBCUT ×3 (09:16→21:24)
[2021-09-20] MEDS: ITRACONAZOLE 100 MG 100 EACH PO ×2 (09:17→21:27)
[2021-09-20] MEDS: DEXAMETHASONE 10 MG/ML VIAL 6 MG IV (09:32)
[2021-09-20] MEDS: ENOXAPARIN 40 MG/0.4 ML SYRINGE SUBCUT (09:32)
[2021-09-20] MEDS: REMDESIVIR 100 MG in SODIUM CHLORIDE 0.9% 230 ML 250 ML IV (09:36)
[2021-09-20 10:31] VITALS: O2SAT 95
[2021-09-20] MEDS: SODIUM CHLORIDE 0.9% FLUSH 10 ML IV ×2 (11:29→21:27)
[2021-09-20] MEDS: TACROLIMUS 0.5 MG CAPSULE 1 MG PO (11:29)
[2021-09-20 11:30] VITALS: BP 155/76
[2021-09-20] MEDS: carvediloL 3.125 MG TABLET PO ×2 (11:30→21:23)
[2021-09-20 12:17] LABS: PTT Partial Thromboplastin Tim 29 SECONDS (26.4-36.2)
--- NOTE | 2021-09-20 16:35 | PC.NURSE ---
Pt condition remains essentially unchanged. SpO2 94% 2L O2 Independent in room. CBG 236 (2u) & 274 (3u) coverage as per orders. IV LFA intact/patant Call light w/in reach, pt independent in room to BR w/o incidence. Continue w/plan of care.
[2021-09-20] MEDS: VALGANCICLOVIR 450 MG 450 EACH PO (17:02)
--- NOTE | 2021-09-20 17:03 | PM.PN.1 ---
Subjective Subjective Date Patient Seen: 09/20/21 Time Patient Seen: 08:00 Interval history: Today he still feels short of breath with ambulation. Desat to 80s with effor without oxygen. Exam Vital Signs (past 8 hours): - 09/20/21 10:31 09/20/21 11:30 Blood Pressure 155/76 H Pulse Oximetry 95 Oxygen Delivery Method Nasal Cannula Oxygen Flow Rate 2 Narrative Exam Narrative: GEN: No acute distress CV: regular rate and rhythm, no murmurs PULM: clear bilaterally Objective Labs Result Diagrams: 09/19/21 05:25 09/19/21 05:25 Labs: Laboratory Results - last 24 hr 09/20/21 11:55 APTT 29 PFSH Medical History Anemia Coronary artery disease Diabetes Hyperlipidemia Hypertension Tubular adenoma of colon Surgical History H/O lung transplant Family History (Updated 09/17/21 @ 08:31 by VLAD Josue) Father Patient denies significant medical history Mother Patient denies significant medical history Social History marital status: household members: spouse Smoking Status: Never smoker alcohol intake: current Assessment & Plan Assessment & Plan narrative: Mr. Jacobs is an 80M admitted with acute hypoxemic respiratory failure due to COVID pneumonia. 1. Acute hypoxemic respiratory failure secondary to COVID pneumonia -continue remdesivir, dexamethasone -patient has been vaccinated -s/p lung transplant, continue to monitor, and continue tacrolimus 2. HTN -continue coreg 3. Hypothyroidism -continue synthroid 4. s/p bilateral lung transplant -continue tacro -hold prednisone -continue valganciclovir Time Spent With Patient Critical Care time: I spent a total of [] minutes of critical care time on this patient's care today; this time is exclusive of procedural time. Quality VTE Deep Vein Thrombosis/Pulmonary Embolism Present on Admission: No
[2021-09-20] MEDS: TACROLIMUS 0.5 MG CAPSULE PO (17:55)
[2021-09-20] MEDS: CODEINE/GUAIFENESIN LIQUID 5ML UDC 10 ML PO (18:01)
[2021-09-20 21:00] VITALS: BP 161/84; PULSE 67; RESP 18; TEMP 36.5; O2SAT 94
[2021-09-20 21:23] VITALS: BP 161/84; PULSE 67
[2021-09-20] MEDS: guaiFENesin ER 600 MG TAB PO (21:23)
[2021-09-20] MEDS: INSULIN GLARGINE 100 UNIT/ML 3ML PEN 8 UNIT SUBCUT (21:23)
[2021-09-20 22:23] VITALS: O2SAT 95
[2021-09-21] MEDS: LEVOTHYROXINE 150 MCG TABLET PO (06:46)
[2021-09-21 08:40] VITALS: BP 167/85; PULSE 62; RESP 16; TEMP 36.4; O2SAT 94
[2021-09-21 09:36] LABS: Hematocrit 33.3 % (41-53); Hemoglobin 11.1 g/dL (13.5-17.5); Mean Corpuscular HGB Conc 33.3 % (30-36); Mean Corpuscular Hemoglobin 32.5 PG (26-34); Mean Corpuscular Volume 97.6 fL (80-100); Platelet Count 212 X10^3/uL (150-400); Red Blood Cell Count 3.41 X10^6/uL (4.5-5.9); Red Cell Distribution Width 13.6 % (11.6-14.8); White Blood Cell Count 12.3 X10^3/uL (4.5-11.0)
[2021-09-21 09:52] VITALS: BP 161/84; PULSE 95
[2021-09-21] MEDS: carvediloL 3.125 MG TABLET PO ×2 (09:52→21:27)
[2021-09-21] MEDS: ENOXAPARIN 40 MG/0.4 ML SYRINGE SUBCUT (09:52)
[2021-09-21] MEDS: DEXAMETHASONE 10 MG/ML VIAL 6 MG IV (09:53)
[2021-09-21] MEDS: guaiFENesin ER 600 MG TAB PO ×2 (09:53→21:28)
[2021-09-21] MEDS: INSULIN LISPRO 100 UNIT/ML 3ML VIAL SUBCUT ×4 (09:55→21:29)
[2021-09-21] MEDS: ITRACONAZOLE 100 MG 100 EACH PO (09:55)
[2021-09-21] MEDS: TACROLIMUS 0.5 MG CAPSULE 1 MG PO (09:57)
[2021-09-21] MEDS: SODIUM CHLORIDE 0.9% FLUSH 10 ML IV ×2 (09:58→22:03)
[2021-09-21 10:00] LABS: BUN Creatinine Ratio 32.7 (6-22); Blood Urea Nitrogen 48 mg/dL (9-20); Calcium 8.5 mg/dL (8.4-10.2); Carbon Dioxide 25 mmol/L (22-32); Chloride 104 mmol/L (98-107); Estimated Glomerular Filt Rate 45.9 mL/min (>60); Glucose 277 mg/dL (80-110); HEMOLYSIS < 15 (0-50); Potassium 4.4 mmol/L (3.4-5.1); Sodium 133 mmol/L (137-145)
[2021-09-21] MEDS: REMDESIVIR 100 MG in SODIUM CHLORIDE 0.9% 230 ML 250 ML IV (10:15)
[2021-09-21] MEDS: TRIMETH/SULFA 160/800 (DS) TABLET 0.5 TAB PO (11:11)
[2021-09-21] MEDS: AZITHROMYCIN 250 MG TABLET 500 MG PO (11:11)
[2021-09-21 17:03] LABS: PTT Partial Thromboplastin Tim 29 SECONDS (26.4-36.2)
--- NOTE | 2021-09-21 17:13 | PM.PN.1 ---
Subjective Subjective Date Patient Seen: 09/21/21 Time Patient Seen: 08:00 Interval history: He continues to cough. He continues to desat to the 80s when off oxygen. Exam Vital Signs (past 8 hours): - 09/21/21 09:52 Pulse Rate 95 H Blood Pressure 161/84 H Oxygen Delivery Method Nasal Cannula Oxygen Flow Rate 2 Narrative Exam Narrative: GEN: No acute distress CV: regular rate and rhythm, no murmurs PULM: clear bilaterally Objective Labs Result Diagrams: 09/21/21 09:02 09/21/21 09:02 Labs: Laboratory Results - last 24 hr 09/21/21 09/21/21 09/21/21 09:02 09:02 16:47 WBC 12.3 H RBC 3.41 L Hgb 11.1 L Hct 33.3 L MCV 97.6 MCH 32.5 MCHC 33.3 RDW 13.6 Plt Count 212 APTT 29 Sodium 133 L Potassium 4.4 Chloride 104 Carbon Dioxide 25 BUN 48 H Creatinine 1.47 H Estimated GFR 45.9 L BUN/Creatinine Ratio 32.7 H Glucose 277 H Calcium 8.5 PFSH Medical History Anemia Coronary artery disease Diabetes Hyperlipidemia Hypertension Tubular adenoma of colon Surgical History H/O lung transplant Family History (Updated 09/17/21 @ 08:31 by VLAD Josue) Father Patient denies significant medical history Mother Patient denies significant medical history Social History marital status: household members: spouse Smoking Status: Never smoker alcohol intake: current Assessment & Plan Assessment & Plan narrative: Mr. Jacobs is an 80M admitted with acute hypoxemic respiratory failure due to COVID pneumonia. 1. Acute hypoxemic respiratory failure secondary to COVID pneumonia -continue remdesivir, dexamethasone -patient has been vaccinated -s/p lung transplant, continue to monitor, and continue tacrolimus 2. HTN -continue coreg 3. Hypothyroidism -continue synthroid 4. s/p bilateral lung transplant -continue tacro -hold prednisone -continue valganciclovir Plan to complete 5 days of remdesivir and dexamethasone on 09/22. Plan for d/c if patient stable, possibly with oxygen. Time Spent With Patient Critical Care time: I spent a total of [] minutes of critical care time on this patient's care today; this time is exclusive of procedural time. Quality VTE Deep Vein Thrombosis/Pulmonary Embolism Present on Admission: No
[2021-09-21] MEDS: VALGANCICLOVIR 450 MG 450 EACH PO (17:48)
[2021-09-21] MEDS: TACROLIMUS 0.5 MG CAPSULE PO (17:48)
[2021-09-21 20:05] VITALS: PULSE 95; RESP 20; O2SAT 95
[2021-09-21 21:00] VITALS: BP 137/81; PULSE 76; RESP 20; TEMP 36.5; O2SAT 95
[2021-09-21 21:27] VITALS: BP 161/84; PULSE 95
[2021-09-21] MEDS: ACETAMINOPHEN 325 MG TABLET 650 MG PO (21:28)
[2021-09-21] MEDS: INSULIN GLARGINE 100 UNIT/ML 3ML PEN 8 UNIT SUBCUT (21:28)
[2021-09-22] MEDS: LEVOTHYROXINE 150 MCG TABLET PO (05:33)
[2021-09-22 06:10] LABS: Hematocrit 31.9 % (41-53); Hemoglobin 10.6 g/dL (13.5-17.5); Mean Corpuscular HGB Conc 33.3 % (30-36); Mean Corpuscular Hemoglobin 32.7 PG (26-34); Mean Corpuscular Volume 98.4 fL (80-100); Platelet Count 207 X10^3/uL (150-400); Red Blood Cell Count 3.24 X10^6/uL (4.5-5.9); Red Cell Distribution Width 13.7 % (11.6-14.8); White Blood Cell Count 15.8 X10^3/uL (4.5-11.0)
[2021-09-22 06:12] LABS: BUN Creatinine Ratio 36.6 (6-22); Blood Urea Nitrogen 53 mg/dL (9-20); Calcium 8.7 mg/dL (8.4-10.2); Carbon Dioxide 27 mmol/L (22-32); Chloride 105 mmol/L (98-107); Estimated Glomerular Filt Rate 46.6 mL/min (>60); Glucose 274 mg/dL (80-110); HEMOLYSIS 15 (0-50); Potassium 5.2 mmol/L (3.4-5.1); Sodium 133 mmol/L (137-145)
[2021-09-22 08:00] VITALS: BP 158/87; PULSE 71; RESP 18; TEMP 36.3; O2SAT 94
[2021-09-22 08:11] VITALS: BP 185/87; PULSE 71
[2021-09-22] MEDS: guaiFENesin ER 600 MG TAB PO (08:11)
[2021-09-22] MEDS: carvediloL 3.125 MG TABLET PO (08:11)
[2021-09-22] MEDS: ENOXAPARIN 40 MG/0.4 ML SYRINGE SUBCUT (08:12)
[2021-09-22] MEDS: SODIUM CHLORIDE 0.9% FLUSH 10 ML IV (08:12)
[2021-09-22] MEDS: TACROLIMUS 0.5 MG CAPSULE 1 MG PO (08:12)
[2021-09-22] MEDS: DEXAMETHASONE 10 MG/ML VIAL 6 MG IV (08:13)
[2021-09-22] MEDS: REMDESIVIR 100 MG in SODIUM CHLORIDE 0.9% 230 ML 250 ML IV (08:13)
[2021-09-22] MEDS: INSULIN LISPRO 100 UNIT/ML 3ML VIAL SUBCUT ×3 (08:15→12:24)
[2021-09-22] MEDS: ITRACONAZOLE 100 MG 100 EACH PO (09:17)
[2021-09-22 10:44] VITALS: O2SAT 95
[2021-09-22 10:45] VITALS: O2SAT 88; O2SAT 95
--- NOTE | 2021-09-22 10:51 | DIET.PN1 ---
Dietary/Diabetes Progress Note Assessment: 80 y/o M with double lung transplant admitted with acute hypoxic respiratory failure secondary to covid pneumonia. Reviewing pt due to a low <60 mg/dL on 09/20/21. H/o Dm for a reported [address] Morgan has had him taking Januvia without issue. Denies regular lows. Denies ever feeling s/s of lows. In fact when he had a low on 09/20/21 of 58 mg/dL, states he did not even feel it. Per the MAR he was given his usual 8u glargine HS the night before and 3u SSI prior to lunch at 11:45am. No PO for review, so unclear how pt intake was. He cannot remember PO for that meal and likelihood that 3u would take his BG from 274 to 58 mg/dL seems unusual. Pt does endorse low appetite for lunch lately. Etiology for low unclear. BG continue above 180 mg/dL before and since that time likely r/t steroid tx for covid pneumonia. Potential that the low was an error, but pt reported treatment with OJ and BG were back to elevated state after upon review. Recent B, 248, 312, 317, 287 mg/dL Ht: 175.26 cm Wt: 90.5 kg BMI: 29.5 Last BM: 09/17/21 (09/17/21 12:27) MNA: Esvin Score: 20 Diet: 09/17/21 Breakfast Carbohydrate Consistent Diet Diet Modifications: Carbohydrate level: Large (4 CHO) Bedtime snack: Yes Nutrition Percent Meal Consumed 75% 09/22/21 10:35 Percent Meal Consumed had an ensure 09/21/21 14:13 Percent Meal Consumed 25% 09/21/21 11:16 Percent Meal Consumed 100% 09/20/21 18:00 Labs: RBC 3.24 X10^6/uL (4.5-5.9) L 09/22/21 05:20 Hgb 10.6 g/dL (13.5-17.5) L 09/22/21 05:20 Hct 31.9 % (41-53) L 09/22/21 05:20 Creatinine 1.45 mg/dL (0.66-1.25) H 09/22/21 05:20 Hemoglobin A1c 7.3 % (4.0-6.0) H 09/16/21 23:30 Lactate 1.4 mmol/L (0.7-2.1) 09/16/21 23:30 NT-Pro-B Natriuret Pep 2960 pg/mL (<450) H 09/16/21 23:30 Interventions: seems pt has a plan to DC but if staying, may benefit from increase to glargine given consistent elevated BG r/t steroid tx. Monitoring/Evaluations: consult prn Electronically Signed by: Savannah Massey 09/22/21 10:[address] [address]
--- NOTE | 2021-09-22 12:01 | P.DS_ITS ---
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 He also started to cough up bloody sputum while in the emergency department just shortly after I entered the room.? Patient is fully vaccinated as well as his .? He denies fever or chills, he does feel like he is short of breath with exertion, denies nausea vomiting, denies chest pain, denies dysuria, has chronic soft stools and denies constipation. In the emergency department he underwent having a chest x-ray which appeared to be a pneumonia.? Due to an elevated D-dimer he was scanned for PE and that was negative but commented that he had ground-glass opacities consistent with COVID 19.? Patient's T-max was 101.1?, currently it is 99.9, blood pressure 157/85, respiratory rate 25, oxygen saturation 98% on room air he weighs 98.7 kg with a BMI of 29.5.? He has a platelet count of 135 lymphocyte count of 1000, D-dimer of 1207, sodium 130, creatinine of 1.52 with the EGFR 44.1 which is actually lower than his baseline, glucose 185, A1c 7.3, calcium 8.0, magnesium 1.4, but troponin 0.04, proBNP of 29 60, albumin of 2.9 and COVID-19 PCR is positive. Discharge Providers Provider Date of admission: 09/17/21 03:10 Discharge Date: 09/22/21 Primary care physician: Froilan Morgan MD Discharge provider: Paolo Willoughby MD Summary Hospital Course Discharge Diagnosis: 1. Acute hypoxemic respiratory failure secondary to COVID pneumonia 2. Hypertension 3. Hypothyroidism 4. s/p bilateral lung transplant 5. CKD stage 3 6. Type 2 Diabetes Hospital Course: Mr. Jacobs came in to the hospital with COVID pneumonia. He had desaturation with activity. He was kept for 5 days of treatment with remdesivir and dexameth asone. He had improvement in his symptoms, but still requiring 2L of oxygen with activity. He was discharged with home oxygen. He was placed back on his prednisone and tarcolimus home doses on discharge. Given his transplant history he was encouraged to follow closely with his pulmonnologist. Exam Vital Signs (past 8 hours): Oxygen Delivery Method Nasal Cannula Oxygen Flow Rate 2 Narrative Exam Narrative: GEN: No acute distress CV: regular rate and rhythm, no murmurs PULM: clear bilaterally Objective Labs Result Diagrams: 09/22/21 05:20 09/22/21 05:20 [facility] Medical History Anemia Coronary artery disease Diabetes Hyperlipidemia Hypertension Tubular adenoma of colon Surgical History H/O lung transplant Family History (Updated 09/17/21 @ 08:31 by VLAD Josue) Father Patient denies significant medical history Mother Patient denies significant medical history Social History marital status: household members: spouse Smoking Status: Never smoker alcohol intake: current Discharge Plan Discharge Plan Patient Disposition: Home Provider Discharge Comment: Mr. Jacobs was admitted with COVID pneumonia. He did get treatment in the hospital and felt better. He still did need oxygen on day of discharge with oxygen saturation in the 80s with walking around. He will be discharge on 2L as needed with activity. 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 Discharge orders & Medications Prescriptions: Continued valganciclovir 450 mg tablet 450 mg PO DAILY 0RF levothyroxine 137 mcg tablet 137 mcg PO QAM 0RF prednisone 5 mg tablet 5 mg PO DAILY 0RF Label Comments: TAKE 1 TABLET BY MOUTH EVERY DAY sulfamethoxazole-trimethoprim 800-160 mg tablet 0.5 tab PO DIRECTED 0RF Rx Instructions: TAKE 1/2 TABLET BY MOUTH EVERY SUNDAY, SUNDAY, AND SUNDAY carvedilol 3.125 mg tablet 3.125 mg PO BID 0RF itraconazole 100 mg capsule 100 mg PO BID 0RF tacrolimus 1 mg capsule 1 mg PO QAM 0RF Label Comments: TAKE 1 CAPSULE BY MOUTH EVERY DAY IN THE MORNING tacrolimus 0.5 mg capsule 0.5 mg PO QPM 0RF Label Comments: TAKE 1 CAPSULE BY MOUTH EVERY EVENING azithromycin 500 mg tablet 500 mg PO DIRECTED 0RF Rx Instructions: TAKE 1 TABLET BY MOUTH EVERY SUNDAY, SUNDAY, AND SUNDAY Januvia 50 mg tablet 50 mg PO DAILY 0RF Label Comments: TAKE 1 TABLET BY MOUTH EVERY DAY Follow up/Referrals: Josr Yeung MD [Non-Staff] - (s/p lung transplant, covid pneumonia, did get 5 days treatment in hospital, dc newly on home O2, follow up 1-2 weeks) Froilan Morgan MD [Primary Care Provider] - Diet/Activity/Treatments Diet: Regular and Carb-consistent/Diabetic Discharge Data Primary Care Provider: Forilan Morgan Quality VTE Deep Vein Thrombosis/Pulmonary Embolism Present on Admission: No
--- NOTE | 2021-09-22 12:42 | PC.NURSE ---
Addendum entered by Mariah Ledesma R.N. 09/22/21 16:48: discharge instructions given. pt wll call providers for follow up. meds returned to patient. O2 tank instruction and demonstration given. Addendum entered by Mariah Ledesma R.N. 09/22/21 14:01: recheck patient's BG 364, notified provider. no new orders. Original Note: BG 381, notified provider. VO to give additional 7 units of insulin
== END 2021-09-22 16:45 | disposition home or self-care (01) | DRG 205 ==
LOC: ED 23:06 → AC 09-17 03:11
PROVIDERS: Internal Medicine; Admitting Provider Nurse Practitioner Family; Emergency Provider Emergency Medicine; PCP Internal Medicine; Referring Provider Emergency Medicine; Visit Provider Nurse Practitioner Family
DX: T86.812 Lung transplant infection (principal); U07.1 COVID-19; J12.82 Pneumonia due to coronavirus disease 2019; J96.01 Acute respiratory failure with hypoxia; R04.2 Hemoptysis; E11.22 Type 2 diabetes mellitus with diabetic chronic kidney disease; I12.9 Hypertensive chronic kidney disease with stage 1 through stage 4 chronic kidney disease, or unspecified chronic kidney disease; E03.9 Hypothyroidism, unspecified; N18.30 Chronic kidney disease, stage 3 unspecified; Z79.84 Long term (current) use of oral hypoglycemic drugs; Z20.822 Contact with and (suspected) exposure to COVID-19; Z66 Do not resuscitate
CPT/HCPCS: 36415; 71045; 71275; 80048; 80053; 80076; 82550; 82553; 82962; 83036; 83605; 83735; 83880; 84145; 84484; 85025; 85027; 85379; 85730; 87040; 87633; 87635; 93005; 93010; 94762; 96361; 96365; 96366; 96367; 96375; 99284; C9803; J1100; J1650; J1815; J3475; J7507; Q9967

== ENCOUNTER 2021-09-24 09:24 | Emergency (ER) | payer MEDICARE, SELFPAY ==
[2021-09-17 12:27] VITALS: BMI 29.5
[2021-09-24] VITALS (9 sets, daily range): BP systolic 142–193; BP diastolic 68–95; PULSE 66–80; RESP 12–20; O2SAT 94–100; BMI 29.4
--- NOTE | 2021-09-24 09:49 | DI.RAD.S_ITS ---
PROCEDURE: XR ABDOMEN 1V INDICATIONS: Constipation TECHNIQUE: One view of the abdomen acquired. COMPARISON: None. FINDINGS: Surgical changes and devices: Lower thoracic postoperative changes are seen. At least 1 pelvic clip can be seen. Bowel: Bowel gas pattern is normal. No abnormal stool burden is seen. Soft tissues: No suspicious abdominal calcifications. Visualized solid organ contours appear normal in size. Bones: No suspicious bony lesions. Degenerative changes are seen throughout, which are worst at the L2-L3 level. IMPRESSION: The amount of stool within the colon is not abnormal. If it would be helpful for clinical management decision making in this patient with this given history, please consider a dedicated CT study of the abdomen with at least IV contrast. Postoperative and degenerative changes are seen. Dictated by: Yazan Mcallister M.D. on 09/24/2021 at 9:33 Approved by: Yazan Mcallister M.D. on 09/24/2021 at 9:35
--- NOTE | 2021-09-24 09:51 | ED.GENADULT ---
HPI - General Adult General Chief complaint: Diabetic Problem Stated complaint: High blood sugar, disoriented Time Seen by Provider: 09/24/21 09:28 Source: patient Mode of arrival: Wheelchair History of Present Illness HPI narrative: Patient is an 80-year-old male. Has a history of a bilateral lung transplant. Is on prednisone and also Tacrolimus. Approximately 10 days ago he was diagnosed with COVID-19. Was fully vaccinated. Was admitted to the hospital. Is now on 2 L of oxygen at home since he was discharged 2 days ago. He states that since he was discharged his blood sugars have been elevated. He is on Januvia. Not on insulin. He has not been eating much since he has been home for his who is at bedside. He has also not had a bowel movement in approximately 1 week. He is still passing flatus. Does feel somewhat like his abdomen is distended. No vomiting. States that overall his breathing has improved since he was admitted to the hospital but he is not back to his pre-hospital respiratory status. He has not had a chance to follow up with any providers since his discharge 2 days ago. He is still having a cough. No fevers. Related Data Home Medications Medication Instructions Recorded Confirmed azithromycin 500 mg tablet 500 mg PO DIRECTED 09/18/20 09/17/21 carvedilol 3.125 mg tablet 3.125 mg PO BID 09/18/20 09/17/21 itraconazole 100 mg capsule 100 mg PO BID 09/18/20 09/17/21 levothyroxine 137 mcg tablet 137 mcg PO QAM 09/18/20 09/17/21 prednisone 5 mg tablet 5 mg PO DAILY 09/18/20 09/17/21 sitagliptin 50 mg tablet (Januvia) 50 mg PO DAILY 09/18/20 09/17/21 sulfamethoxazole 800 0.5 tab PO DIRECTED 09/18/20 09/17/21 mg-trimethoprim 160 mg tablet tacrolimus 0.5 mg capsule, 0.5 mg PO QPM 09/18/20 09/17/21 immediate-release tacrolimus 1 mg capsule, 1 mg PO QAM 09/18/20 09/17/21 immediate-release valganciclovir 450 mg tablet 450 mg PO DAILY 09/18/20 09/17/21 Allergies Allergy/AdvReac Type Severity Reaction Status Date / Time No Known Drug Allergies Allergy Verified 09/24/21 09:35 Review of Systems Constitutional Constitutional: Denies fever(s) Cardiovascular Cardiovascular: Denies chest pain Respiratory Respiratory: Reports as per HPI, Reports system reviewed and no additional complaints, except as documented and Reports cough Gastrointestinal Gastrointestinal: Reports as per HPI and Reports system reviewed and no additional complaints, except as documented Musculoskeletal Musculoskeletal: Reports system reviewed and no additional complaints, except as documented Integumentary/Breasts Skin/Breast: Reports system reviewed and no additional complaints, except as documented Neurologic Neurologic: Reports system reviewed and no additional complaints, except as documented Hematologic/Lymphatic On Anticoagulants: No Patient History Medical History Anemia Coronary artery disease Diabetes Hyperlipidemia Hypertension Tubular adenoma of colon Surgical History H/O lung transplant Family History (Updated 09/17/21 @ 08:31 by VLAD Josue) Father Patient denies significant medical history Mother Patient denies significant medical history Social History marital status: household members: spouse Smoking Status: Never smoker alcohol intake: current Smoking Status: Never smoker alcohol intake frequency: holidays/special occasions only Substance Use Type: does not use Exam Initial Vital Signs Initial Vital Signs: Vital Signs Pulse Rate 77 09/24/21 09:30 Respiratory Rate 18 09/24/21 09:30 Blood Pressure 156/89 H 09/24/21 09:30 Pulse Oximetry 99 09/24/21 09:30 Const General: cooperative, comfortable and well developed [facility] Head: normal to inspection and normocephalic Resp Effort & Inspection: normal respiratory effort Auscultation: clear to auscultation bilaterally Cardio Rate: regular rate Rhythm: regular rhythm GI Inspection: non-distended Palpation: soft and No tender Skin General: no rashes or lesions noted Neuro General: patient alert, patient awake and moves all extremities Extrem General: normal to inspection and capillary refill normal Psych Appearance: grossly normal and well kempt Course Orders Ordered: ED Orders 09/24/21 09:49 XR abdomen 1V Stat Complete Blood Count AUTO DIFF Stat Comprehensive Metabolic Panel Stat Ketones (Beta-Hydroxybutyrate) Stat Lactate (Lactic Acid) Stat Lipase Stat Thyroid Stimulating Hormone Stat 09/24/21 09:50 Magnesium Stat Phosphorous Stat Vital Signs Vital signs: Vital Signs - 8 hr 09/24/21 09:30 09/24/21 09:33 09/24/21 10:00 Pulse Rate 77 68 67 Respiratory Rate 18 15 Blood Pressure 156/89 H 156/89 H Pulse Oximetry 99 94 100 09/24/21 10:17 09/24/21 10:30 09/24/21 11:00 Pulse Rate 66 76 66 Respiratory Rate 15 13 12 Blood Pressure 142/68 H 193/93 H Pulse Oximetry 99 100 98 09/24/21 11:01 Pulse Rate 66 Respiratory Rate 13 Blood Pressure 173/80 H Pulse Oximetry 98 Medical Decision Making Lab Data Result diagrams: 09/24/21 10:13 09/24/21 10:13 Labs: Lab Results 09/24/21 09/24/21 09/24/21 Range/Units 10:13 10:13 10:13 WBC 12.1 H (4.5-11.0) X10^3/uL RBC 3.45 L (4.5-5.9) X10^6/uL Hgb 11.3 L (13.5-17.5) g/dL Hct 33.3 L (41-53) % MCV 96.6 (80-100) fL MCH 32.9 (26-34) PG MCHC 34.0 (30-36) % RDW 13.5 (11.6-14.8) % Plt Count 198 (150-400) X10^3/uL Neut % (Auto) Not Reportable Lymph % (Auto) Not Reportable [place] % (Auto) Not Reportable Eos % (Auto) Not Reportable Baso % (Auto) Not Reportable Lymph # (Auto) Not Reportable [place] # (Auto) Not Reportable Baso # (Auto) Not Reportable Total Counted 100 Seg Neutrophils % 86.0 H (38-70) % Lymphocytes % (Manual) 6.0 L (25-45) % Monocytes % (Manual) 7.0 (2-11) % Metamyelocytes % 1.0 H (-0) % Neutrophils # (Manual) 83179 H (2282-8056) /uL Smudge Cells 1+ H RBC Morphology See below Macrocytosis 2+ H Sodium 134 L (137-145) mmol/L Potassium 4.9 (3.4-5.1) mmol/L Chloride 103 (98-107) mmol/L Carbon Dioxide 27 (22-32) mmol/L BUN 63 H (9-20) mg/dL Creatinine 1.77 H (0.66-1.25) mg/dL Estimated GFR 37.0 L (>60) mL/min BUN/Creatinine Ratio 35.6 H (6-22) Glucose 195 H (80-110) mg/dL Lactate 2.7 H (0.7-2.1) mmol/L Calcium 8.8 (8.4-10.2) mg/dL Phosphorus (2.3-3.7) mg/dL Magnesium (1.6-2.3) mg/dL Total Bilirubin 1.0 (0.2-1.3) mg/dL AST 44 (17-59) IU/L ALT 41 (<50) IU/L Alkaline Phosphatase 77 (38-126) U/L Total Protein 5.8 L (6.3-8.2) g/dL Albumin 3.1 L (3.5-5.0) g/dL Globulin 2.7 (1.7-4.1) g/dL Albumin/Globulin Ratio 1.1 (1.0-2.8) Lipase 313 H (23-300) U/L TSH (0.47-4.68) uIU/mL Ketones 0.09 (<0.27) mmol/L 09/24/21 09/24/21 Range/Units 10:13 10:13 WBC (4.5-11.0) X10^3/uL RBC (4.5-5.9) X10^6/uL Hgb (13.5-17.5) g/dL Hct (41-53) % MCV (80-100) fL MCH (26-34) PG MCHC (30-36) % RDW (11.6-14.8) % Plt Count (150-400) X10^3/uL Neut % (Auto) Lymph % (Auto) [place] % (Auto) Eos % (Auto) Baso % (Auto) Lymph # (Auto) [place] # (Auto) Baso # (Auto) Total Counted Seg Neutrophils % (38-70) % Lymphocytes % (Manual) (25-45) % Monocytes % (Manual) (2-11) % Metamyelocytes % (-0) % Neutrophils # (Manual) (4418-9525) /uL Smudge Cells RBC Morphology Macrocytosis Sodium (137-145) mmol/L Potassium (3.4-5.1) mmol/L Chloride (98-107) mmol/L Carbon Dioxide (22-32) mmol/L BUN (9-20) mg/dL Creatinine (0.66-1.25) mg/dL Estimated GFR (>60) mL/min BUN/Creatinine Ratio (6-22) Glucose (80-110) mg/dL Lactate (0.7-2.1) mmol/L Calcium (8.4-10.2) mg/dL Phosphorus 2.7 (2.3-3.7) mg/dL Magnesium 2.2 (1.6-2.3) mg/dL Total Bilirubin (0.2-1.3) mg/dL AST (17-59) IU/L ALT (<50) IU/L Alkaline Phosphatase (38-126) U/L Total Protein (6.3-8.2) g/dL Albumin (3.5-5.0) g/dL Globulin (1.7-4.1) g/dL Albumin/Globulin Ratio (1.0-2.8) Lipase (23-300) U/L TSH 0.853 (0.47-4.68) uIU/mL Ketones (<0.27) mmol/L Point of Care Testing Glucose POC 233 Point of care testing: Point of Care Testing Glucose POC 233 Imaging Data Abdominal x-ray: Radiologist's Impression: Launch?[address] [address] XRay Report Signed Patient: Darryl Jacobs MR#: [id number] : 1940 Acct:[id number] Age/Sex: 80 / M Date of Service: 09/24/21 Loc: ED Accession Number: [id number] ?? Procedure: XR abdomen 1V Ordering Provider: Home Issa D.O. PROCEDURE:? XR ABDOMEN 1V ? INDICATIONS:? Constipation ? TECHNIQUE:? One view of the abdomen acquired.? ? COMPARISON:? None. ? FINDINGS:? ? Surgical changes and devices:? Lower thoracic postoperative changes are seen.? At least 1 pelvic clip can be seen. ? Bowel:? Bowel gas pattern is normal.? No abnormal stool burden is seen. ? Soft tissues:? No suspicious abdominal calcifications.? Visualized solid organ contours appear normal in size.? ? Bones:? No suspicious bony lesions.? Degenerative changes are seen throughout, which are worst at the L2-L3 level. ? ? IMPRESSION:? The amount of stool within the colon is not abnormal. ? If it would be helpful for clinical management decision making in this patient with this given history, please consider a dedicated CT study of the abdomen with at least IV contrast.? ? Postoperative and degenerative changes are seen.? ? Dictated by: Yazan Mcallister M.D. on 09/24/2021 at 9:33 ? ? Approved by: Yazan Mcallister M.D. on 09/24/2021 at 9:35 MDM Narrative Medical decision making narrative: Patient is nontoxic. His labs are relatively unremarkable. His kidney function today is better than what it has been in the past but is slightly worse than when he was admitted to the hospital. Blood sugar less than 200 on his chemistries. No indication for DKA. Low suspicion for pneumonia. He does have a cough but was diagnosed with COVID 2 weeks ago. Afebrile. No indication for antibiotics. X-ray of his abdomen shows no definitive signs of obstruction I feel the given his soft abdomen in the fact that he is passing flatus I feel that we can hold on a CT scan for now. Will have the patient continue all of his medications as directed. He was instructed to contact his primary doctor for follow-up. He expressed understanding and agreement. Discharge Plan Departure Patient Disposition: Home Clinical Impression: Hyperglycemia Instructions: DI for Hyperglycemia -- Adult Activity Restrictions/Additional Instructions: Recommend that you continue to take all of your medications as directed. On Sunday contact your primary doctor as your going to need to follow-up for your recent hospital stay. Try to increase your fluid intake and also your food intake over the next couple days. You can consider taking a stool softener. Return to the emergency department for any new or worsening symptoms. Prescriptions: No Action valganciclovir 450 mg tablet 450 mg PO DAILY 0RF levothyroxine 137 mcg tablet 137 mcg PO QAM 0RF prednisone 5 mg tablet 5 mg PO DAILY 0RF Label Comments: TAKE 1 TABLET BY MOUTH EVERY DAY sulfamethoxazole-trimethoprim 800-160 mg tablet 0.5 tab PO DIRECTED 0RF Rx Instructions: TAKE 1/2 TABLET BY MOUTH EVERY SUNDAY, SUNDAY, AND SUNDAY carvedilol 3.125 mg tablet 3.125 mg PO BID 0RF itraconazole 100 mg capsule 100 mg PO BID 0RF tacrolimus 1 mg capsule 1 mg PO QAM 0RF Label Comments: TAKE 1 CAPSULE BY MOUTH EVERY DAY IN THE MORNING tacrolimus 0.5 mg capsule 0.5 mg PO QPM 0RF Label Comments: TAKE 1 CAPSULE BY MOUTH EVERY EVENING azithromycin 500 mg tablet 500 mg PO DIRECTED 0RF Rx Instructions: TAKE 1 TABLET BY MOUTH EVERY SUNDAY, SUNDAY, AND SUNDAY Januvia 50 mg tablet 50 mg PO DAILY 0RF Label Comments: TAKE 1 TABLET BY MOUTH EVERY DAY Referrals: Froilan Morgan MD [Primary Care Provider] -
[2021-09-24 10:32] LABS: HEMOLYSIS < 15 (0-50)
[2021-09-24 10:37] LABS: Alanine Aminotransferase 41 IU/L (<50); Albumin 3.1 g/dL (3.5-5.0); Albumin Globulin Ratio 1.1 (1.0-2.8); Alkaline Phosphatase 77 U/L (38-126); Aspartate Aminotransferase 44 IU/L (17-59); BUN Creatinine Ratio 35.6 (6-22); Blood Urea Nitrogen 63 mg/dL (9-20); Calcium 8.8 mg/dL (8.4-10.2); Carbon Dioxide 27 mmol/L (22-32); Chloride 103 mmol/L (98-107); Globulin 2.7 g/dL (1.7-4.1); Glucose 195 mg/dL (80-110); Lipase 313 U/L (23-300); Potassium 4.9 mmol/L (3.4-5.1); Sodium 134 mmol/L (137-145); Total Protein 5.8 g/dL (6.3-8.2)
[2021-09-24 10:39] LABS: Lactate (Lactic Acid) 2.7 mmol/L (0.7-2.1); Magnesium 2.2 mg/dL (1.6-2.3); Phosphorous 2.7 mg/dL (2.3-3.7)
[2021-09-24 10:44] LABS: Hematocrit 33.3 % (41-53); Hemoglobin 11.3 g/dL (13.5-17.5); Mean Corpuscular Hemoglobin 32.9 PG (26-34); Mean Corpuscular Volume 96.6 fL (80-100); Platelet Count 198 X10^3/uL (150-400); Red Blood Cell Count 3.45 X10^6/uL (4.5-5.9); Red Cell Distribution Width 13.5 % (11.6-14.8); White Blood Cell Count 12.1 X10^3/uL (4.5-11.0)
[2021-09-24 10:57] LABS: Ketones (Beta-Hydroxybutyrate) 0.09 mmol/L (<0.27)
[2021-09-24 10:59] LABS: Add Manual Diff / Slide Review YES
[2021-09-24 11:08] LABS: Thyroid Stimulating Hormone 0.853 uIU/mL (0.47-4.68)
[2021-09-24 11:21] LABS: Neutrophils Absolute Manual 10406 /uL (3000-5900); Smudge Cells 1+; Total Cells Counted 100
[2021-09-24 11:22] LABS: Macrocytosis 2+
[2021-09-24 12:17] LABS: Reflexed Lactate in 2 Hours Y
== END 2021-09-24 11:40 | disposition home or self-care (01) ==
PROVIDERS: Emergency Provider Emergency Medicine; PCP Internal Medicine
DX: E11.65 Type 2 diabetes mellitus with hyperglycemia (principal); Z79.84 Long term (current) use of oral hypoglycemic drugs
CPT/HCPCS: 36415; 74018; 80053; 82009; 82962; 83605; 83690; 83735; 84100; 84443; 85007; 85025; 99284

== ENCOUNTER → 2021-10-29 12:46 | Outpatient (CLI) | payer MEDICARE, SELFPAY ==
[2021-09-17 12:27] VITALS: BMI 29.5
--- NOTE | 2021-10-29 12:50 | DI.RAD.S_ITS ---
PROCEDURE: XR LUMBAR SPINE 2-3V INDICATIONS: Lumbalgia, night pain TECHNIQUE: 3 views of the lumbar spine were acquired. COMPARISON: [facility], CT, CT ANGIO CHEST PE PROTOCOL, 09/17/2021, 0:21. FINDINGS: Bones: 5 [id number] vertebrae are present. There is trace retrolisthesis of L1 on L2, L5 on S1. There is a 57% compression deformity at L1. No priors are available for comparison. No suspicious bony lesions. Multilevel disc space narrowing is present most severe at L2-3, L5-S1. Foraminal narrowing is most notable at L4-5 and L5-S1. Soft tissues: Overlying bowel gas pattern is normal. No suspicious soft tissue calcifications. IMPRESSION: 57% compression deformity at L1 of indeterminate age. Multilevel degenerative changes including most prominent disc and foraminal narrowing at L2-3, L4-5 and L5-S1. Dictated by: Amira Kovacs M.D. on 10/29/2021 at 14:03 Approved by: Amira Kovacs M.D. on 10/29/2021 at 14:05
== END ==
PROVIDERS: PCP Internal Medicine; Referring Provider Chiropractor; Visit Provider Chiropractor
DX: M47.816 Spondylosis without myelopathy or radiculopathy, lumbar region (principal); M47.817 Spondylosis without myelopathy or radiculopathy, lumbosacral region; M48.061 Spinal stenosis, lumbar region without neurogenic claudication; M48.07 Spinal stenosis, lumbosacral region; M54.51 Vertebrogenic low back pain
CPT/HCPCS: 72100

== ENCOUNTER → 2021-11-01 08:54 | Outpatient (CLI) | payer MEDICARE, SELFPAY ==
[2021-09-17 12:27] VITALS: BMI 29.5
[2021-11-01 10:59] LABS: Add Manual Diff / Slide Review NO; Basophils Absolute Auto 100 /uL (0-100); Basophils Percent Auto 0.6 % (0-2); Eosinophils Absolute Auto 0 /uL (0-450); Eosinophils Percent Auto 0.4 % (2-4); Hematocrit 29.6 % (41-53); Hemoglobin 9.9 g/dL (13.5-17.5); Lymphocytes Absolute Auto 2800 /uL (1100-4500); Lymphocytes Percent Auto 32.8 % (25-40); Mean Corpuscular HGB Conc 33.3 % (30-36); Mean Corpuscular Hemoglobin 33.1 PG (26-34); Mean Corpuscular Volume 99.2 fL (80-100); Monocytes Absolute Auto 900 /uL (0-900); Monocytes Percent Auto 10.8 % (3-14); Neutrophils Absolute Auto 4800 /uL (1500-7000); Neutrophils Percent Auto 55.4 % (50-75); Platelet Count 135 X10^3/uL (150-400); Red Blood Cell Count 2.99 X10^6/uL (4.5-5.9); Red Cell Distribution Width 15.1 % (11.6-14.8); White Blood Cell Count 8.7 X10^3/uL (4.5-11.0)
[2021-11-01 11:43] LABS: Alanine Aminotransferase 18 IU/L (<50); Albumin 3.2 g/dL (3.5-5.0); Albumin Globulin Ratio 1.2 (1.0-2.8); Alkaline Phosphatase 121 U/L (38-126); Aspartate Aminotransferase 26 IU/L (17-59); BUN Creatinine Ratio 22.8 (6-22); Bilirubin Total 0.4 mg/dL (0.2-1.3); Blood Urea Nitrogen 29 mg/dL (9-20); Calcium 9.1 mg/dL (8.4-10.2); Carbon Dioxide 28 mmol/L (22-32); Chloride 106 mmol/L (98-107); Estimated Glomerular Filt Rate 54.2 mL/min (>60); Globulin 2.7 g/dL (1.7-4.1); Glucose 109 mg/dL (80-110); HEMOLYSIS < 15 (0-50); Magnesium 1.9 mg/dL (1.6-2.3); Phosphorous 3.2 mg/dL (2.3-3.7); Potassium 4.1 mmol/L (3.4-5.1); Sodium 137 mmol/L (137-145); Total Protein 5.9 g/dL (6.3-8.2)
[2021-11-02 08:02] LABS: Tacrolimus 3.9 ng/mL (2.0-20.0)
[2021-11-03 08:54] LABS: CMV DNA, Quant Real Time PCR Negative (Negative)
== END ==
PROVIDERS: PCP Internal Medicine; Referring Provider Internal Medicine Critical Care Medicine; Visit Provider Internal Medicine Critical Care Medicine
DX: N18.32 Chronic kidney disease, stage 3b (principal); Z94.2 Lung transplant status
CPT/HCPCS: 36415; 80053; 80069; 80197; 83735; 85025; 87497

== ENCOUNTER → 2021-11-20 08:42 | Outpatient (CLI) | payer MEDICARE, SELFPAY ==
[2021-09-17 12:27] VITALS: BMI 29.5
--- NOTE | 2021-11-20 | DI.MRI.S_ITS ---
PROCEDURE: MR LUMBAR SPINE WO CON INDICATIONS: Spondylolysis, lumbar region TECHNIQUE: Noncontrast sagittal T1 spin echo and T2 fast echo, sagittal STIR, and T2 fast spin echo through the lumbar spine. In cases with scoliosis, additional coronal T2 fast spin echo may be performed. COMPARISON: [facility], CT, CT ANGIO CHEST PE PROTOCOL, 09/17/2021, 0:21. [facility], CR, XR LUMBAR SPINE 2-3V, 10/29/2021, 12:44. FINDINGS: Image quality: Excellent. Alignment and Curvature: Mild degenerative anterolisthesis of L3 on L4. Bone Marrow: There is an acute or subacute severe compression fracture of L1 with approximately 80% midportion vertebral body height loss. There is mild posterior bony retropulsion with mild canal stenosis. Cannot exclude a pathologic compression. Indeterminate signal abnormality in the posterior aspect of the vertebra, as well as lucency in this area noted on plain films. No other bone marrow signal abnormality is noted. Spinal Cord: Conus medullaris terminates at the L1-L2 level. Visualized cord demonstrates normal signal and size. Paraspinous Soft Tissues: No paravertebral masses. T12-L1: Mild canal stenosis secondary to a subacute compression fracture of L1 with mild bony retropulsion. Mild bilateral foraminal stenosis. L1-L2: Minimal disc bulge. Facet hypertrophy. Mild canal stenosis. Mild right and moderate left foraminal stenosis. L2-L3: High-grade canal stenosis secondary to diffuse disc bulge and facet hypertrophy and short pedicles. Moderate right foraminal narrowing with flattening deformity on the exiting right L2 nerve root. Mild left foraminal narrowing. L3-L4: Severe canal stenosis secondary to diffuse disc bulge with superimposed shallow superior disc extrusion and facet and ligament hypertrophy and short pedicles. Moderate bilateral foraminal narrowing with flattening deformity on the exiting bilateral L3 nerve roots. L4-L5: Mild canal stenosis secondary to disc bulge and facet hypertrophy. Moderate bilateral foraminal narrowing with mild flattening deformity on the exiting bilateral L4 nerve roots. L5-S1: Mild disc bulge. Facet hypertrophy. No canal stenosis. Moderate right foraminal narrowing with flattening deformity on the exiting right L5 nerve root. Mild to moderate left foraminal narrowing. IMPRESSION: 1. There is a severe subacute L1 compression fracture. Cannot exclude a pathologic fracture. Consider further evaluation with CT. There is mild canal stenosis at T12-L1 secondary to mild posterior bony retropulsion. 2. Patient has underlying short pedicles. 3. 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 4. Multilevel facet arthropathy. 5. Multilevel foraminal narrowing as described above. Comment: Consider CT evaluation of L1. Dictated by: Horace Patel M.D. on 11/21/2021 at 8:16 Approved by: Horace Patel M.D. on 11/21/2021 at 8:32
== END ==
PROVIDERS: PCP Internal Medicine; Referring Provider Orthopaedic Surgery Orthopaedic Surgery of the Spine; Visit Provider Orthopaedic Surgery Orthopaedic Surgery of the Spine
DX: M43.06 Spondylolysis, lumbar region (principal); M48.56XA Collapsed vertebra, not elsewhere classified, lumbar region, initial encounter for fracture; M48.05 Spinal stenosis, thoracolumbar region; M47.816 Spondylosis without myelopathy or radiculopathy, lumbar region; M51.36 Other intervertebral disc degeneration, lumbar region
CPT/HCPCS: 72148

== ENCOUNTER → 2021-12-02 08:33 | Outpatient (CLI) | payer MEDICARE, SELFPAY ==
[2021-09-17 12:27] VITALS: BMI 29.5
--- NOTE | 2021-12-02 08:57 | DI.CT.S_ITS ---
PROCEDURE: CT THORACIC SPINE WO CON INDICATIONS: THORACIC LUMBAR JUNCTION FOCUS TECHNIQUE: Noncontrast 3 mm thick sections acquired through the region of interest in the thoracic spine. Sagittal and coronal reformats were then constructed. For radiation dose reduction, the following was used: automated exposure control. COMPARISON: [facility], MR, MR LUMBAR SPINE WO CON, 11/20/2021, 8:51. FINDINGS: Image quality: Excellent. Bones: There is normal overall bony alignment. Chronic appearing L1 compression fracture noted. L1 compression fracture results in approximately 70% loss of normal anterior vertebral body height. 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 No osseous erosive changes identified in the L1 vertebral body. No acute vertebral body compression fractures. No suspicious sclerotic or lytic bony lesions. Moderate degenerative disc changes noted throughout the thoracic spine. Moderate facet hypertrophy noted in the lower thoracic spine. Soft tissues: No paravertebral masses or hematomas. Visualized posteromedial lungs appear clear. Visualized heart is enlarged. Dense atherosclerotic calcifications noted in the visualized coronary vasculature, the aorta in the visualized abdominal vasculature. IMPRESSION: 1. Chronic L1 compression fracture. 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 2. No acute vertebral body fracture. 3. No acute osseous lesion. If symptoms and/or clinical suspicion for pathology persists, evaluation with MRI should be considered for further assessment. Dictated by: Jeri Jean MD, PhD on 12/02/2021 at 11:17 Approved by: Jeri Jean MD, PhD on 12/02/2021 at 11:24
== END ==
PROVIDERS: PCP Internal Medicine; Referring Provider Orthopaedic Surgery Orthopaedic Surgery of the Spine; Visit Provider Orthopaedic Surgery Orthopaedic Surgery of the Spine
DX: M48.56XA Collapsed vertebra, not elsewhere classified, lumbar region, initial encounter for fracture (principal); M47.814 Spondylosis without myelopathy or radiculopathy, thoracic region; I25.10 Atherosclerotic heart disease of native coronary artery without angina pectoris; I70.0 Atherosclerosis of aorta
CPT/HCPCS: 72128

== ENCOUNTER → 2021-12-08 06:40 | Outpatient (CLI) | payer MEDICARE, SELFPAY ==
[2021-09-17 12:27] VITALS: BMI 29.5
[2021-12-08 08:08] LABS: Add Manual Diff / Slide Review NO; Basophils Absolute Auto 100 /uL (0-100); Basophils Percent Auto 0.8 % (0-2); Eosinophils Absolute Auto 0 /uL (0-450); Eosinophils Percent Auto 0.4 % (2-4); Hematocrit 31.3 % (41-53); Hemoglobin 10.8 g/dL (13.5-17.5); Lymphocytes Absolute Auto 2900 /uL (1100-4500); Lymphocytes Percent Auto 37.7 % (25-40); Mean Corpuscular HGB Conc 34.5 % (30-36); Mean Corpuscular Hemoglobin 34.2 PG (26-34); Mean Corpuscular Volume 99.1 fL (80-100); Monocytes Absolute Auto 600 /uL (0-900); Monocytes Percent Auto 8.2 % (3-14); Neutrophils Absolute Auto 4100 /uL (1500-7000); Neutrophils Percent Auto 52.9 % (50-75); Platelet Count 191 X10^3/uL (150-400); Red Blood Cell Count 3.16 X10^6/uL (4.5-5.9); Red Cell Distribution Width 14.8 % (11.6-14.8); White Blood Cell Count 7.8 X10^3/uL (4.5-11.0)
[2021-12-08 08:13] LABS: Hemoglobin A1C% w Est Avg Glu 6.3 % (4.0-6.0)
[2021-12-08 09:04] LABS: Alanine Aminotransferase 18 IU/L (<50); Albumin 3.5 g/dL (3.5-5.0); Albumin Globulin Ratio 1.3 (1.0-2.8); Alkaline Phosphatase 73 U/L (38-126); Aspartate Aminotransferase 29 IU/L (17-59); BUN Creatinine Ratio 21.6 (6-22); Bilirubin Total 0.6 mg/dL (0.2-1.3); Blood Urea Nitrogen 37 mg/dL (9-20); Calcium 8.8 mg/dL (8.4-10.2); Carbon Dioxide 28 mmol/L (22-32); Chloride 97 mmol/L (98-107); Estimated Glomerular Filt Rate 38.4 mL/min (>60); Globulin 2.7 g/dL (1.7-4.1); Glucose 83 mg/dL (80-110); HEMOLYSIS < 15 (0-50); Magnesium 1.8 mg/dL (1.6-2.3); Phosphorous 3.8 mg/dL (2.3-3.7); Potassium 4.4 mmol/L (3.4-5.1); Sodium 134 mmol/L (137-145); Total Protein 6.2 g/dL (6.3-8.2)
[2021-12-08 15:23] LABS: Tacrolimus 4.6 ng/mL (2.0-20.0)
[2021-12-09 16:09] LABS: CMV DNA, Quant Real Time PCR Negative (Negative)
== END ==
PROVIDERS: PCP Internal Medicine; Referring Provider Internal Medicine Critical Care Medicine; Visit Provider Internal Medicine Critical Care Medicine
DX: Z94.2 Lung transplant status (principal); R73.9 Hyperglycemia, unspecified; Z01.812 Encounter for preprocedural laboratory examination; Z01.818 Encounter for other preprocedural examination
CPT/HCPCS: 36415; 80053; 80197; 83036; 83735; 84100; 85025; 87497

== ENCOUNTER → 2021-12-08 06:53 | Outpatient (CLI) | payer MEDICARE, SELFPAY ==
[2021-09-17 12:27] VITALS: BMI 29.5
== END ==
PROVIDERS: PCP Internal Medicine; Referring Provider Orthopaedic Surgery Orthopaedic Surgery of the Spine; Visit Provider Orthopaedic Surgery Orthopaedic Surgery of the Spine
DX: Z01.818 Encounter for other preprocedural examination (principal); Z01.812 Encounter for preprocedural laboratory examination; R73.9 Hyperglycemia, unspecified; Z94.2 Lung transplant status
CPT/HCPCS: 36415; 80053; 80197; 83036; 83735; 84100; 85025; 87497; 93005; 93010

== ENCOUNTER → 2021-12-19 09:57 | Outpatient (CLI) | payer MEDICARE, SELFPAY ==
[2021-09-17 12:27] VITALS: BMI 29.5
[2021-12-19 11:18] LABS: COVID19 -Nasal RAPID Negative (Negative)
== END ==
PROVIDERS: PCP Internal Medicine; Visit Provider Family Medicine Sleep Medicine
DX: Z20.822 Contact with and (suspected) exposure to COVID-19 (principal)
CPT/HCPCS: 87635; C9803

== ENCOUNTER → 2021-12-19 13:57 | Outpatient (CLI) | payer MEDICARE, SELFPAY ==
[2021-09-17 12:27] VITALS: BMI 29.5
--- NOTE | 2021-12-19 13:59 | DI.CT.S_ITS ---
PROCEDURE: CT LUMBAR SPINE WO CON INDICATIONS: Spinal stenosis, site unspecified TECHNIQUE: Noncontrast 3 mm thick sections acquired from the T12 level to the sacrum. Sagittal and coronal reformats were constructed. For radiation dose reduction, the following was used: automated exposure control. Dedicated 0.8 mm images are reformatted for preoperative guidance. COMPARISON: [facility], MR, MR LUMBAR SPINE WO CON, 11/20/2021, 8:51. [facility], CT, CT THORACIC SPINE WO CON, 12/02/2021, 9:00. FINDINGS: Image quality: Excellent. Bones: There is a chronic, stable L1 compression deformity, with 70-80% loss of height centrally. Posterior displacement fracture fragments of 6 mm can be seen. No acute vertebral body compression fractures. At the superior endplate of L4, there is a remote Schmorl's node seen. No suspicious lytic or blastic bony lesions. No pars defects. There is minimal anterolisthesis seen at L3-L4, with minimal retrolisthesis at L5-S1. Age-appropriate lower thoracic spine degenerative changes are seen. T12-L1: The disc height is relatively well preserved. Vacuum disc phenomenon is seen at this level. Moderate generalized disc bulge is seen. Moderate bilateral neural foraminal narrowing is seen. Moderate central canal narrowing is seen. L1-L2: The disc height is well preserved. Vacuum disc phenomenon is seen at this level. Moderate generalized disc bulge is seen. Moderate facet joint hypertrophy is seen. Associated hypertrophy of the ligamentum flavum can be seen. There is at least moderate bilateral neural foraminal narrowing seen. At least moderate central canal narrowing is seen. L2-L3: Moderate to severe loss of disc height is seen. Endplate irregularity and sclerosis can be seen. Vacuum disc phenomenon is seen at this level. At least moderate disc bulge is seen, which is eccentric to the right. Posteriorly projected endplate osteophytes are seen. Moderate to severe bilateral neural foraminal narrowing can be seen, right worse than left. Moderate to severe central canal narrowing is seen. L3-L4: Moderate loss of disc height is seen. At least moderate disc bulge is seen. There is a superimposed central disc protrusion. Moderate facet joint hypertrophy is seen. Moderate to severe bilateral neural foraminal narrowing is seen at this level, left worse than right. Moderate to severe central canal narrowing is seen. L4-L5: Mild loss of disc height is seen. Moderate generalized disc bulge is seen. Mild to moderate bilateral facet hypertrophy is seen. There is moderate to severe bilateral neural foraminal narrowing seen, left worse than right. At least moderate central canal narrowing is seen. L5-S1: Moderate loss of disc height is seen. At least moderate disc bulge is seen. Bridging endplate osteophytes are seen on both sides. Posteriorly projected endplate osteophytes are seen. Mild facet joint hypertrophy is seen. Moderate bilateral neural foraminal narrowing can be seen, right worse than left. Moderate central canal narrowing is seen. Soft tissues: No retroperitoneal masses or hematomas. Visualized aorta is normal in caliber. Atherosclerotic calcification is noted. Cholecystectomy clips are seen. Colonic diverticulosis is seen, without findings of active diverticulitis. IMPRESSION: Multiple levels of relatively prominent lumbar spine degenerative change are seen, which are similar to the recent prior MRI examination. Remote L1 compression deformity, with posterior displacement of fracture fragments. Incidental note is made of: Cholecystectomy Diverticulosis, without active diverticulitis Dictated by: Yazan Mcallister M.D. on 12/19/2021 at 16:25 Approved by: Yazan Mcallister M.D. on 12/19/2021 at 16:32
== END ==
PROVIDERS: PCP Internal Medicine; Referring Provider Orthopaedic Surgery Orthopaedic Surgery of the Spine; Visit Provider Orthopaedic Surgery Orthopaedic Surgery of the Spine
DX: M48.061 Spinal stenosis, lumbar region without neurogenic claudication (principal); M48.07 Spinal stenosis, lumbosacral region; M47.816 Spondylosis without myelopathy or radiculopathy, lumbar region; M47.817 Spondylosis without myelopathy or radiculopathy, lumbosacral region; K57.90 Diverticulosis of intestine, part unspecified, without perforation or abscess without bleeding; Z90.49 Acquired absence of other specified parts of digestive tract
CPT/HCPCS: 72131

== ENCOUNTER 2021-12-20 05:49 | Inpatient (IN) | payer MEDICARE, SELFPAY ==
[2021-09-17 12:27] VITALS: BMI 29.5
[2021-12-15 10:12] VITALS: BMI 27.3
[2021-12-20] VITALS (21 sets, daily range): BP systolic 115–159; BP diastolic 61–92; PULSE 72–90; RESP 12–18; TEMP 35.7–36.8; O2SAT 98–100; BMI 27.3
--- NOTE | 2021-12-20 | DI.RAD.S_ITS ---
PROCEDURE: XR LUMBAR SPINE 2-3V INDICATIONS: TLIF L2-4 TECHNIQUE: 2 operative views of the lumbar spine were acquired. COMPARISON: [facility], CR, XR LUMBAR SPINE 2-3V, 10/29/2021, 12:44. FINDINGS: AP and lateral operative C-arm images demonstrate posterior lateral sharee and pedicle screw fixation and interbody prosthesis material placement at L2 through L4. IMPRESSION: Operative imaging utilized for TLIF, L2 through 4. Dictated by: Horace Patel M.D. on 12/20/2021 at 12:46 Approved by: Horace Patel M.D. on 12/20/2021 at 12:46
[2021-12-20] MEDS: LACTATED RINGERS 1,000 ML 42 ML IV ×2 (07:15→09:54)
--- NOTE | 2021-12-20 07:41 | SUR.OPER ---
Prone on spine table, head in foam head support, padded chest and pelvic supports, gel pad at knees, lower legs supported by pillows; nipples, genitalia and toes free of pressure, arms secured on foam padded arm boards at <90 degrees abduction. Tape over blanket at thigh secured to table.
--- NOTE | 2021-12-20 07:42 | PM.PREOP ---
Pre-operative Note COVID-19 COVID-19 status: Negative Result date/Date tested (Pos, Neg/Pending): 12/19/21 Criteria for continued procedure: Expected advancement of disease process, Possibility delay results in more complex future surgery or treatment, Increased loss of function, Continuing or worsening of significant or severe pain, Deterioration of the patient's condition or overall health and Delay expected to result in less-positive ultimate med/surg outcome Interval Note History & Physical reviewed/Exam performed by Physician: Yes Changes to H&P: No
[2021-12-20] MEDS: CEFAZOLIN 2 GM/20 ML SYRINGE IV ×3 (08:09→23:54)
[2021-12-20] MEDS: BUPIVACAINE 0.25% (PF) 30 ML, EPINEPHrine 0.3 MG INJ (08:53)
[2021-12-20] MEDS: BUPIVACAINE LIPOSOME 266 MG/20 ML VIAL INJ (08:53)
--- NOTE | 2021-12-20 11:48 | P.OP_ITS ---
Operative Date/Time/Diagnoses Date of procedure: 12/20/21 Time of procedure: 07:45 Pre-op diagnosis: 1. Lumbar spinal stenosis with neurogenic claudication 2. Lumbar spondylosis with radiculopathy 3. Lumbar spondylolisthesis Post-op diagnosis: same Procedure & Clinicians Procedure: 1. L2-3, L3-4 Postero-lateral and posterior interbody fusion 2. L2-3, L3-4 interbody cage placement. 3. L2-3, L3-4 decompressive laminectomy with bilateral facetecomies 4. L2-3, L3-4 Posterior segmental instrumentation 5. Crimora of bone marrow from iliac crest 6. Utilization of microsurgical technique and operating microscope Same procedure as scheduled: Yes Indications: Patient has been having chronic back pain and worsening leg pain and weakness. Patient failed multiple conservative management with worsening pain weakness and numbness in his lower extremity consistent with neurogenic claudication correlating with his MRI findings at L2-3 L3-4 level. Patient has been having difficulty performing activity of daily living due to his severe pain progressive leg weakness. After discussing risks benefits of treatment options, patient elected proceed with surgery. Surgeon: Claudine Ureña Hvac Sales Representative: Lawrence Quiroga Click Yes if Unassisted: No Anesthesia Type: General Operative Notes Closure Type: primary Specimen(s): none sent Prosthetic devices, grafts, tissues, transplants, or devices: Globus CREO MIS screws, Rise cages Applied: catheter Estimated Blood Loss (mL): 100 Blood products transfused: none Procedure in detail: Patient was seen in the preoperative area. Risks and benefits of the surgery was discussed with the patient. Informed consent was obtained from the patient and placed in the chart. Surgical site was marked. Patient was taken to the operative room. General anesthesia was administered. Prophylactic antibiotic was given to the patient less than 30 min before the incision was made. Patient was placed into a prone position on the Ton table. Patient's back was then prepped and draped in the sterile fashion. Time-out was performed at this time. After patient was prepped and draped, patient's PSIS was palpated and marked bilaterally. Small 1 cm incision was made over the PSIS for placement of the reference probes. Two trocar was placed into the PSIS 1 on each side. The reference probe was attached to the trocar of the reference apparatus. At this time the C-arm imaging was used to confirm AP and lateral of L2, L3-L4 vertebrae and merged the C-arm imaging using the [employer] robotic navigation system with the CT of the lumbar spine. After successful merging was completed and confirmed, skin marker was used to taty out the skin incision using the [employer] robotic arm. Bilateral incision was made at this time. Pre templated trajectory was used and guided using the [employer] robotic navigation system for bilateral L2 L3, L4 pedicle screw placement. This was done by using the robotic arm to guide the high-speed bur to make a cortical entry point. Next a drill was placed also using the robotic arm and guided using the navigation system drilling partially through bilateral L2, L3, L4 pedicles. Next L2, L3, L4 pedicle screws it was pre templated and measured was placed onto the power bobtail driver and inserted into the pedicles bilaterally. After all 6 screws were placed C-arm imaging was taken of both AP and lateral to confirm the placement. Excellent placement of the screws were confirmed and a matched precisely with the pre planned screw placement using the navigation system. MARs retractor was inserted using [employer] guidence. Globus MARS retractors was placed inside the incision and docked onto the L2, L3 lamina. Using microsurgical technique and operating microscope, a L2, L3 laminectomy and L2-3, L3-4 facetectomy was performed using a Kerrison rongeur. Patient was found have severe central, lateral recess and neural foramen stenosis which was fully decompressed after the laminectomy facetectomy. More than 75% of the facets were removed during the process of decompression rendering L2-3, L3-4 level grossly unstable and required a fusion procedure at the same time. The disc space at L2-3, L3-4 was identified, and a total diskectomy was performed at L2-3, L3-4 level. The endplates were decorticated using a rasp and shaver. The total diskectomy and decortication was performed at L2-3, L3-4 level in order to to accomplish a L2-3, L3-4 fusion. The local bone from the laminectomy and facetectomy was saved for local bone grafting. After the total diskectomy and decortication was completed, Trifecta bone graft material was combined with local bone that was harvested earlier. At this time, a separate skin is incision was made over the iliac crest. A Jamshidi needle was inserted into the iliac crest through a separate skin incision. 5 cc of bone marrow aspiration was obtained through the separate skin incision using a Jamshidi needle from the iliac crest. The bone marrow aspiration was combined with local bone and the Trifecta bone grafting material. The bone grafting material was placed into the L2-3, L3-4 interbody space along with expandable cages. One cage each was inserted into the L2-3 L3-4 interbody space along with bone graft material. The cage was expanded to its maximum height using the torque limiting screwdriver. The disc preparation as well as the cage insertion were also performed under navigation guidance. After the cage was placed, AP and lateral C-arm imaging was taken to confirm placement of the cage and excellent position was confirmed. Globus MARS retractor was inserted and docked onto the L2-3, L3-4 posterolateral gutter on the right side. Using the power drill, posterior-lateral decortication was performed at L2-3, L3-4 level until bleeding cortical bone was identified. The remaining bone grafting material was placed into the L2-3, L3-4 posterior lateral gutter he order to accomplish posterolateral fusion at the L2- 3, L3-4 level. At this time the tulips were attached to the L2, L3-L4 pedicle screw shanks. After measuring the length of the rods, they were inserted into the tulips of the pedicle screws and locked in place using locking caps and torque limiting screwdriver bilaterally. Total 6 caps and 2 titanium rods was used in order to complete the posterior instrumentation construct. After all the hardware was placed, and confirmed with AP and lateral C-arm imaging, the wound was then irrigated with sterile normal saline and packed with Ray-Adalid gauze for 3 min to accomplish hemostasis. After the gauze was removed the deep fascia was closed with #1 Vicryl suture. The subcutaneous layer was closed with 2-0 Vicryl. The skin was closed with skin heather. Patient tolerated the procedure well. There were no complications. Neuro monitoring system was used to monitor patient's neurologic status throughout entire procedure. There was no disturbance of the neural monitoring signals throughout the case. Complications: none Post-operative Condition: stable Disposition: PACU Plan for aftercare: Admit to inpatient hospital
[2021-12-20] MEDS: INSULIN REGULAR 100 UNIT/ML 3 ML VIAL SUBCUT (12:22)
[2021-12-20] MEDS: OXYCODONE IR 5 MG TABLET PO ×3 (12:26→21:48)
[2021-12-20] MEDS: HYDROMORPHONE 2 MG INJ IV ×3 (12:38→12:50)
[2021-12-20] MEDS: fentaNYL 100 MCG/2 ML INJ IV ×2 (12:53→13:09)
--- NOTE | 2021-12-20 13:35 | SUR.PHASEI ---
REPORT GIVEN TO SHAUNNA SIMPSON AND OPPORTUNITIES FOR QUESTIONS GIVEN. RETURN PHONE NO. AT TIME OF REPORT 230. PT GOING TO RM 218. PT UPDATED ON TRANSFER STATUS AND IS AGREEABLE.
[2021-12-20] MEDS: SODIUM CHLORIDE 0.9% 1,000 ML 100 ML IV ×2 (15:44→23:54)
--- NOTE | 2021-12-20 18:56 | PC.NURSE ---
Pt arrived from PACU VSS, afebrile lethargic but awakens easily.Advanced diet as tolerated BG 187. Fair po intake. NS @100ml/hr. Encouraged repositioning. Large skin tear from OR to R forearm covered with tegaderm. Bernard draining clear light yellow adequate amount of urine. Dressing to back c/d/I. He reports pain level tolerable at 2/10. IS encouraged. Continuous monitoring.
[2021-12-20] MEDS: ACETAMINOPHEN 325 MG TABLET 975 MG PO (21:40)
[2021-12-20] MEDS: SENNOSIDES 8.6 MG TABLET 17.2 MG PO (21:40)
[2021-12-20] MEDS: carvediloL 3.125 MG TABLET PO (21:41)
[2021-12-20] MEDS: TACROLIMUS 0.5 MG CAPSULE PO (21:41)
[2021-12-20] MEDS: DOCUSATE 100 MG CAPSULE PO (21:41)
[2021-12-21] VITALS (10 sets, daily range): BP systolic 121–137; BP diastolic 68–78; PULSE 79–90; RESP 14–18; TEMP 36.2–36.6; O2SAT 98–100
[2021-12-21 06:04] LABS: Hematocrit 27.3 % (41-53); Hemoglobin 9.2 g/dL (13.5-17.5)
[2021-12-21] MEDS: LEVOTHYROXINE 150 MCG TABLET PO (07:00)
--- NOTE | 2021-12-21 08:20 | PM.PNPO.1 ---
Subjective Subjective Date Patient Seen: 12/21/21 Time Patient Seen: 08:22 Interval history: Patient is complaining of [id number] low back pain this morning. He has not worked with physical therapy. He has chronic anemia his current hemoglobin is 9.2. He is using oxycodone 5 mg and Tylenol as needed. He did suffer a significant right arm skin tear during his hospital stay. Exam Vital Signs (past 8 hours): - 12/21/21 00:25 12/21/21 04:19 Temperature 97.7 F 97.1 F L Pulse Rate 89 82 Respiratory Rate 18 18 Blood Pressure 137/73 122/75 Pulse Oximetry 100 100 Oxygen Delivery Method Nasal Cannula Oxygen Flow Rate 1 Narrative Exam Narrative: Pleasant 81-year-old male, resting comfortably in bed, no acute distress. Dressing is saturated with blood. Bilateral lower extremity: Motor functions are grossly intact, sensation is grossly intact to light touch, calves are soft, but mildly tender to palpation. No cording is appreciated. There is an extensive right forearm tear that is currently dressed with Tegaderm. Objective Labs Result Diagrams: 12/21/21 05:42 Labs: Laboratory Results - last 24 hr 12/21/21 05:42 Hgb 9.2 L Hct 27.3 L PFSH Medical History Anemia Coronary artery disease Diabetes Hearing impaired Hyperlipidemia Hypertension Hypothyroid IPF (idiopathic pulmonary fibrosis) Tubular adenoma of colon Surgical History H/O lung transplant (2009) Hx of bilateral cataract extraction Hx of cholecystectomy Family History Father Patient denies significant medical history Mother Patient denies significant medical history Social History marital status: household members: spouse Smoking Status: Former smoker alcohol intake: current Assessment & Plan Post-op Postoperative Procedures: Procedures Operation Date: 12/20/21 07:45 Actual Procedure Side Surgeon p L2-3, L3-4 TLIF w. posterior instrumentation -Robot Not Applicable Claudine Ureña MD Postoperative day: 1 Postoperative status narrative: Stable status post L2-3, L3-4 TLIF Postoperative plan narrative: -mobilize with PT. Weightbearing as tolerated with front wheeled walker. Limit bending, lifting, twisting x6 weeks -continue with current pain medications. -continue to monitor her for his chronic anemia, current hemoglobin is 9.2. The patient is asymptomatic currently. -dressing change, please call my cell phone if there is any active drainage -DC home likely tomorrow, possibly eat this evening if he does very well with physical therapy Quality VTE Deep Vein Thrombosis/Pulmonary Embolism Present on Admission: No
--- NOTE | 2021-12-21 09:44 | PT.IIE ---
Current Diagnoses Other spondylosis with radiculopathy, lumbar region (12/20/21) Spinal stenosis, lumbar region with neurogenic claudication (12/20/21) Surgery Performed Operation Date: 12/20/21 07:45 Actual Procedures p L2-3, L3-4 TLIF w. posterior instrumentation -Robot(Not Applicable) - Claudine Ureña MD Medical History (Last Reviewed 12/21/21 @ 08:24 by Janie Ledesma PA-C) Anemia Coronary artery disease Diabetes Hearing impaired Hyperlipidemia Hypertension Hypothyroid IPF (idiopathic pulmonary fibrosis) Tubular adenoma of colon Physical Therapy Inpatient Evaluation/Re-Eval M1 PT/OT-IP Prior Functional Status Start: 12/21/21 08:21 Freq: NEEDED Status: Active Protocol: Document 12/21/21 09:44 AW (Rec: 12/21/21 11:44 AW [id number]) Medical Review Prior Functional Status Medical History Reviewed Yes Communication Pt is able to make his needs known. Mobility and Gait Pt is typically independent without assistive device. He had COVID in September. He deveoped severe back pain post -COVID and has needed a cane or FWW since that time. He has ordered a 4WW but it has not arrived yet. Activities of Daily Living and IADL's Pt needs set up assist for dressing and uses a ballet company artistic director. Pt states he is up multiple times/night to use the bathroom. 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 Social History Household Members spouse Living Arrangements House Number of Floors (Floors) One Floor Number of Stairs To Enter/Railing? 2 VERITO with R rail ascending Home Environment High Toilet,Walk in Shower Home Equipment Front Wheel Walker,Straight Cane,Shower Seat without Backrest,Hand Held Shower, Functional Skills Tutor Additional Social History Comment Pt has a toilet safety frame. His bed is tall; he does not usually use a step but admits he needs to hike his hip to get onto the mattress. He lives with his spouse, Rhiannon, who will be able to provide CGA/min assist but nothing heavier. M2 PT-IP Current Condition Start: 12/21/21 08:21 Freq: NEEDED Status: Active Protocol: Document 12/21/21 09:44 AW (Rec: 12/21/21 11:44 AW [id number]) Physical Therapy Current Condition Current Condition Evaluation Date 12/21/21 Treatment Diagnosis s/p L2-3 L3-4 TLIF; difficulty in walking M3 PT-IP Subjective Start: 12/21/21 08:21 Freq: NEEDED Status: Active Protocol: Document 12/21/21 09:44 AW (Rec: 12/21/21 11:44 AW [id number]) Subjective Physical Therapy Visit Type Type Initial Evaluation Visit Start Time 09:10 Visit Stop Time 09:44 Total Visit Minutes 34 Notes Pt's spouse was present for part of this evaluation. Pt seen with OT due to low functional reserve. Physical Therapy Visit Comments Patient Comments Pt is willing to participate with therapy. Patient Goals Return to prior level of mobility. Therapy Pain Assessment Pain When Pain Assessed During Mobility Pain Present Pain Present Pain Reported Location low back Intensity 4 Scale Used unchanged from at rest M4 PT-IP Mobility and Gait Start: 12/21/21 08:21 Freq: NEEDED Status: Active Protocol: Document 12/21/21 09:44 AW (Rec: 12/21/21 11:56 AW [id number]) PT-Bed Mobility Assessment Rolling Type of Rolling Log Rolling,Roll to Left Level of Assist Minimal Assistance,1 Person Assistance Supine to Sit Supine to Sit Minimal Assistance,1 Person Assistance,Bedrails Scooting Scooting to Edge of Bed Contact Guard Assistance PT-Transfer Assessment Sit to and From Stand Sit to and from Stand Minimal Assistance,1 Person Assistance,Use of Upper Extremities Equipment Transfer Assistive Device Gait Belt,Front Wheeled Walker Orthotic/Prosthetic Devices or Brace: No Transfers Transfer Destination Chair Transfer Technique Stand Step Pivot Transfer Ability Level of Assist Contact Guard Assistance, Minimal Assistance Comments Mobility Comments Pt was lying in bed as PT and OT arrived. BP 125/71 HR 79. Pt was on 1/2 L/min O2 but PT unable to assess SpO2 due to equipment. Educated pt on post -op precautions and log roll technique. Pt needed min A and mod cues to roll to his left and sit up using bed rail. He sat EOB as RN came to assess his wound dressing. He stood min A and used FWW to walk five feet very slowly to the chair CGA. Cues for hand placement and hip hinge + min assist needed to sit safely. Pt stood from the chair min A and cues for knee extension, weight distribution. Pt sat again with reduced cueing. BP 141/84 HR 89 after activity. Pt was left in the chair with OT for further assessment. Gait Assessment Gait Gait Assistance Required: Contact Guard Assist Distance (Feet) 5 Able to Maintain Weight Bearing Status Yes During Gait Assistive Devices Assistive Device Gait Belt,Front Wheeled Walker Orthotic/Prosthetic Devices or Brace: No Gait Deviations General Gait Pattern Antalgic,Decreased Stride Length,Decreased Feet Clearance Factors Limiting Gait Function Factors Limiting Gait Function Decreased Activity Tolerance, Decreased Strength,Pain,Poor Safety Awareness Comments Gait Comments Pt needed some redirection to attend to task and maintain precautions. He moved very slowly but stated it was faster and better than he had been moving before surgery. His confirmed this was true. Stair Climbing Assessment Comments Stair Climbing Comments Not assessed. PT-Balance Assessment Sitting Balance and Reactions Static Sitting Balance Ability Good Dynamic Sitting Balance Ability Good Standing Balance and Reactions Static Standing Balance Ability Fair Dynamic Standing Balance Ability Fair Device Used FWW M5 PT-IP Objective Assessments Start: 12/21/21 08:21 Freq: NEEDED Status: Active Protocol: Document 12/21/21 09:44 AW (Rec: 12/21/21 11:56 AW [id number]) Orientation Orientation/Cognition Level of Alertness Alert Orientation Name,Day of Week,Place, Situation Language Function Ability No Deficits Noted Safety Awareness Understands Safety Issues Memory Description No Deficits Noted Gross Range of Motion Lower Extremity ROM Assessment Within Functional Limits Strength Lower Extremity Strength Assessment Bilaterally Impaired Hip 4/5 Knee 4+/5 Sensation Assessment Sensation Gross Sensation WNL Muscle Tone Muscle Tone WNL Yes M6 PT-IP Treatment Start: 12/21/21 08:21 Freq: NEEDED Status: Active Protocol: Document 12/21/21 09:44 AW (Rec: 12/21/21 11:56 AW [id number]) Physical Therapy Treatment Education Education Provided Precautions,Weight Bearing Status,Post-Op Packet,Safety Other Treatments Other Treatment Performed Educated pt and his spouse about PT plan of care. Also discussed equipment needs for home, recommending possible hospital bed and BSC. Directed pt's spouse to [facility] in [facility] for equipment needs. 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 He developed severe back pain post-COVID a few months ago and is now seen on POD1 following L2-3 L3-4 TLIF. Prior to COVID, pt was independent with all mobility and ADL's but recently has needed assist with ADL's and uses a cane or FWW for mobility. Pt required CGA/mod assist for bed mobility and transfer at this assessment and stated that he is moving better currently than he was pre-operatively. Pt's spouse agrees and feels she will be able to provide the appropriate level of assist at home. Pt will need to clear stairs prior to discharge. PT recommends home with assist. Goals Bed Mobility Goal Contact Guard Assistance Transfer Goal Standby Assistance,Front Wheeled Walker Gait Goal Standby Assistance,Front Wheel Walker Gait Distance 75 Other Goals -- up/down 2 steps with R rail and SPC vs CEREAL MILLER Days to Meet Goals 3 Frequency of Treatment Frequency Of Treatment Twice a Day Treatment Plan Physical Therapy Treatment Plan Bed Mobility Training,Transfer Training,Gait Training, Therapeutic Exercise,Balance Retraining,Post Op Education, Discharge Planning,Hot or Cold Pack,Neuromuscular Re-ed Other Recommendations and Next Treatment transfers, gait, stairs (with Focus spouse if possible); ideas for supine and seated ther ex Precautions Lumbar Precautions Log Roll,No Twisting,Limit Bending,Lifting Restriction of 10 lbs,Gait Belt above Incisional Area Other Precautions skin tear R forearm Recommendations To Nursing Amount of Assist Needed 1 Person Assist Discharge Recommendations PT Discharge Recommendations Home with Assistance,Home with 24/7 Assist Available Other Discharge Recommendations Pt likely to benefit from hospital bed and BSC. Spouse to inquire about rental. Transportation Needs at Discharge Private Vehicle
[2021-12-21] MEDS: ACETAMINOPHEN 325 MG TABLET 975 MG PO ×3 (10:07→20:10)
[2021-12-21] MEDS: OXYCODONE IR 5 MG TABLET PO (10:07)
[2021-12-21] MEDS: predniSONE 5 MG TABLET PO (10:10)
[2021-12-21] MEDS: SITAGLIPTIN 50 MG TABLET PO (10:10)
[2021-12-21] MEDS: carvediloL 3.125 MG TABLET PO ×2 (10:10→20:11)
[2021-12-21] MEDS: TRIMETH/SULFA 160/800 (DS) TABLET 0.5 TAB PO (10:10)
[2021-12-21] MEDS: TACROLIMUS 0.5 MG CAPSULE 1 MG PO (10:11)
[2021-12-21] MEDS: DOCUSATE 100 MG CAPSULE PO (10:11)
[2021-12-21] MEDS: AZITHROMYCIN 250 MG TABLET 500 MG PO (10:17)
--- NOTE | 2021-12-21 10:20 | OT.IP.EVAL ---
Current Diagnoses Other spondylosis with radiculopathy, lumbar region (12/20/21) Spinal stenosis, lumbar region with neurogenic claudication (12/20/21) Surgery Performed Operation Date: 12/20/21 07:45 Actual Procedures p L2-3, L3-4 TLIF w. posterior instrumentation -Robot(Not Applicable) - Claudine Ureña MD Past Medical History (Last Reviewed 12/21/21 @ 08:24 by Janie Ledesma PA-C) Anemia Coronary artery disease Diabetes H/O lung transplant (2009) Hearing impaired Hx of bilateral cataract extraction Hx of cholecystectomy Hyperlipidemia Hypertension Hypothyroid IPF (idiopathic pulmonary fibrosis) Tubular adenoma of colon Surgical History (Last Reviewed 12/21/21 @ 08:24 by Janie Ledesma PA-C) H/O lung transplant (2009) Hx of bilateral cataract extraction Hx of cholecystectomy Occupational Therapy Inpatient Evaluation/Re-Eval M1 PT/OT-IP Prior Functional Status Start: 12/21/21 08:21 Freq: NEEDED Status: Active Protocol: Document 12/21/21 09:44 AW (Rec: 12/21/21 11:44 AW [id number]) Medical Review Prior Functional Status Medical History Reviewed Yes Communication Pt is able to make his needs known. Mobility and Gait Pt is typically independent without assistive device. He had COVID in September. He deveoped severe back pain post -COVID and has needed a cane or FWW since that time. He has ordered a 4WW but it has not arrived yet. Activities of Daily Living and IADL's Pt needs set up assist for dressing and uses a assistant professor of spanish. Pt states he is up multiple times/night to use the bathroom. 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 Social History Household Members spouse Living Arrangements House Number of Floors (Floors) One Floor Number of Stairs To Enter/Railing? 2 VERITO with R rail ascending Home Environment High Toilet,Walk in Shower Home Equipment Front Wheel Walker,Straight Cane,Shower Seat without Backrest,Hand Held Shower, Public Health Nutritionist Additional Social History Comment Pt has a toilet safety frame. His bed is tall; he does not usually use a step but admits he needs to hike his hip to get onto the mattress. He lives with his spouse, Rhiannon, who will be able to provide CGA/min assist but nothing heavier. M2 OT-IP Current Condition Start: 12/21/21 12:38 Freq: Status: Active Protocol: Document 12/21/21 09:08 [facility] (Rec: 12/21/21 12:53 [facility] [id number]) Occupational Therapy Current Condition Current Condition Evaluation Date 12/21/21 Treatment Diagnosis S/p L2-3, L3-4 TLIF Diagnosis Onset Date 12/20/21 Post Operative Precautions Lumbar Precautions Log Roll,No Twisting,Limit Bending,Lifting Restriction of 10 lbs,Gait Belt above Incisional Area M3 OT- IP Subjective and Pain Start: 12/21/21 12:38 Freq: Status: Active Protocol: Document 12/21/21 09:08 [facility] (Rec: 12/21/21 12:53 [facility] [id number]) OT- Subjective Occupational Therapy Visit Type Type Initial Evaluation Visit Start Time 09:08 Visit Stop Time 10:20 Total Visit Minutes 68 Occupational Therapy Visit Comments Patient Comments Pt agreed to get up for OT and pt's present at the end of the session for initiation of caregiver training. Patient/Caregiver Goals TO go home. OT Pain Assessment Pain When Pain Assessed At Rest Pain Present Pain Present Pain Reported Location low back Intensity 5 Scale Used Numeric (0 - 10) M4 OT- IP ADL's Start: 12/21/21 12:38 Freq: Status: Active Protocol: Document 12/21/21 09:08 [facility] (Rec: 12/21/21 12:53 [facility] [id number]) OT [id number] Comments OT Self-Feeding Comments NOt at meal time. OT ADL-Grooming Comments OT Grooming Comments Not performed. OT ADL-Oral Care Comments Oral Care Comments Educated best to spit into a cup to best follow his back precautions. OT ADL-Dressing General Eval Lower Body Dressing Ability Maximum Assistance Areas Needing Assistance Socks Comments OT Dressing Comments Pt states just wear slip on shoes at home. OT ADL-Toileting General Evaluation Toileting Ability Total Assistance Comments OT Toileting Comments Bernard in place. Showed/ educated pt on options of toilet paper aid /bidet, or to assist for hygiene needs after a bowel movement. pt would benefit from urinal and BSC OT ADL-Bathing Comments OT Bathing Comments NOt performed. M5 OT- IP IADL's Start: 12/21/21 12:38 Freq: Status: Active Protocol: Document 12/21/21 09:08 [facility] (Rec: 12/21/21 12:53 [facility] [id number]) OT-Instrumental Activities of Daily Living Home Safety Awareness Awareness of Need for Assistance at Home Good Awareness Ability to Problem Solve Emergency Able to Problem Solve Situations Home Safety Comments Pt's to assist pt for all his needs. Medication Management Medication Management Caregiver Administers Money Management Money Management Caregiver Provides Assistance Meal Preparation Meal Preparation Caregiver Provides Assist [employer] Agriculture Specialist [employer] Specialist Caregiver Provides Assist M6 OT- IP Functional Cognition Start: 12/21/21 12:38 Freq: Status: Active Protocol: Document 12/21/21 09:08 [facility] (Rec: 12/21/21 12:53 [facility] [id number]) Cognitive Factors Limiting Selfcare Function Cognitive Ability Level of Alertness Alert Patient Orientation Name,Place,Situation Ability to Follow Commands Able to Follow One Step Commands Cognitive Comments Cognitive Assessment Comments Pt able to follow commands for back precautions and needing reminders for safety for hand placement and FWW use. OT- Vision and Hearing OT- Hearing Assessment OT- Hearing Assessment WFL OT- Vision Assessment Visual Acuity Glasses For Reading M7 OT- IP Mobility and Balance Start: 12/21/21 12:38 Freq: Status: Active Protocol: Document 12/21/21 09:08 [facility] (Rec: 12/21/21 12:53 [facility] [id number]) OT- Bed Mobility Assessment Supine to Sit Supine to Sit Assist Minimal Assistance Sit to Supine Sit to Supine Assist Contact Guard Assistance OT-Transfer Assessment Sit to and From Stand Sit to and from Stand Minimal Assistance Transfers Transfer Ability Contact Guard Assistance, Minimal Assistance Technique Transfer Destination Bed,Chair Transfer Technique Stand Step Pivot Devices Transfer Assistive Devices Gait Belt,Front Wheeled Walker Comments Mobility Comments Pt CHRISTIANA for bed mobility needs to get upright and then at the end of the session with CGA. Depending of height standing up from pt needing from CGA to CHRISTIANA to stand to FWW. Able to educate pt's how to gillian/doff the gait belt and how to assist pt with transfers. Pt states the bed is very high and wants to rent a hospital bed in addition states his recliner is too low and his looking into renting a high recliner. Information pointed out for equipment needs to his . OT- Balance Assessment Sitting Balance and Reactions Static Sitting Balance Ability Good Dynamic Sitting Balance Ability Fair Standing Balance and Reactions Static Standing Balance Ability Fair M8 OT- IP Objective Assessments Start: 12/21/21 12:38 Freq: Status: Active Protocol: Document 12/21/21 09:08 [facility] (Rec: 12/21/21 12:53 [facility] [id number]) OT Gross Range of Motion Upper Extremity Range of Motion Assessment Right Impaired OT Strength Upper Extremity Strength Assessment Right Impaired OT-Muscle Tone Assessment Muscle Tone WNL Yes M9 OT- IP Assessment and Plan Start: 12/21/21 12:38 Freq: Status: Active Protocol: Document 12/21/21 09:08 [facility] (Rec: 12/21/21 12:53 [facility] [id number]) OT Summary Assessment and Plan Potential Rehabilitation Potential Good Analytic Complexity at Evaluation Low Summary OT Impairments Pain,Strength,Balance, Functional Mobility,Grooming, Dressing,Toileting,Bathing, Toilet Transfers,Shower Transfers,Activity Tolerance Progress Towards Goals Progressing Toward Goals Assessment Summary Pt low complexity and main barriers are pain, steps and will need some assist for ADL and mobility needs. Pt's has initiated caregiver training and looking to get a hospital bed and recliner for the pt. Pt to go home with 24/ 7 assist when medically stable . Goals Grooming Goal Independent Dressing Goal Independent Toileting Goal Minimal Assistance Bathing Goal Independent Toilet Transfer Goal Independent Shower Transfer Goal Independent Patient/Caregiver Education Goal Demonstrate Post-Op Precautions,Caregiver Independent Assisting Patient Days to Meet Goals 5 Frequency of Treatment Frequency Of Treatment Once a Day Treatment Plan OT Treatment Plan ADL Training,Functional Cognition Training,Functional Mobility,Patient/Family Education,Discharge Planning Other Treatment Recommendations and Next shower Treatment Focus Discharge Recommendations OT Discharge Recommendations Home with 24/7 Assist Available Home Equipment Needs Hospital bed/ recliner, urinal/BSC Transportation Needs at Discharge Private Vehicle
[2021-12-21] MEDS: MAG HYDROX/ALUM/SIMETH 30 ML UDC PO ×2 (11:46→22:13)
--- NOTE | 2021-12-21 14:37 | PT.IPTN ---
Current Diagnoses Other spondylosis with radiculopathy, lumbar region (12/20/21) Spinal stenosis, lumbar region with neurogenic claudication (12/20/21) Surgery Performed Operation Date: 12/20/21 07:45 Actual Procedures p L2-3, L3-4 TLIF w. posterior instrumentation -Robot(Not Applicable) - Claudine Ureña MD Physical Therapy Treatment Note M2 PT-IP Current Condition Start: 12/21/21 08:21 Freq: NEEDED Status: Active Protocol: Document 12/21/21 09:44 AW (Rec: 12/21/21 11:44 AW [id number]) Physical Therapy Current Condition Current Condition Evaluation Date 12/21/21 Treatment Diagnosis s/p L2-3 L3-4 TLIF; difficulty in walking M3 PT-IP Subjective Start: 12/21/21 08:21 Freq: NEEDED Status: Active Protocol: Document 12/21/21 14:37 AW (Rec: 12/21/21 14:47 AW [id number]) Subjective Physical Therapy Visit Type Type Treatment Note Visit Start Time 14:11 Visit Stop Time 14:37 Total Visit Minutes 26 Physical Therapy Visit Comments Patient Comments Pt is hoping to go for a walk Therapy Pain Assessment Pain When Pain Assessed During Mobility Pain Present Pain Present Pain Reported Location low back Intensity 4 M4 PT-IP Mobility and Gait Start: 12/21/21 08:21 Freq: NEEDED Status: Active Protocol: Document 12/21/21 14:37 AW (Rec: 12/21/21 15:47 AW [id number]) PT-Bed Mobility Assessment Rolling Type of Rolling Log Rolling,Roll to Left Level of Assist Minimal Assistance,1 Person Assistance Supine to Sit Supine to Sit Contact Guard Assistance,1 Person Assistance,Bedrails PT-Transfer Assessment Sit to and From Stand Sit to and from Stand Contact Guard Assistance,1 Person Assistance,Use of Upper Extremities Equipment Transfer Assistive Device Gait Belt,Front Wheeled Walker Orthotic/Prosthetic Devices or Brace: No Transfers Transfer Destination Chair Transfer Technique Stand Step Pivot Transfer Ability Level of Assist Contact Guard Assistance Comments Mobility Comments Pt was in bed as PT arrived. SpO2 was 96% on 1 L/min. RT arrived and requested room air trial. SpO2 was 94% RA. Pt needed min A to roll to his left and CGA for SL to sit. SpO2 was stable. Pt stood with FWW CGA and ambulated 80 feet with FWW CGA. Pallavi was slow but pt was safe with no evidence of buckling or LOB. Portable pulse ox read 89-93% throughout ambulation on room air. Pt returned to the chair and sat CGA. He completed three more sit to stands with cueing for hip hinge form CGA. Pt was left in the chair on room air. Reported SpO2 values to RN and RT. Gait Assessment Gait Gait Assistance Required: Contact Guard Assist Distance (Feet) 80 Able to Maintain Weight Bearing Status Yes During Gait Assistive Devices Assistive Device Gait Belt,Front Wheeled Walker Orthotic/Prosthetic Devices or Brace: No Gait Deviations General Gait Pattern Antalgic,Decreased Stride Length,Decreased Feet Clearance Factors Limiting Gait Function Factors Limiting Gait Function Decreased Activity Tolerance, Decreased Strength,Pain,Poor Safety Awareness Comments Gait Comments Step length and pallavi improved slightly in the padilla. Stair Climbing Assessment Comments Stair Climbing Comments Not assessed. Pt too fatigued today. Will need to complete prior to discharge. PT-Balance Assessment Sitting Balance and Reactions Static Sitting Balance Ability Good Dynamic Sitting Balance Ability Good Standing Balance and Reactions Static Standing Balance Ability Good Dynamic Standing Balance Ability Fair Device Used FWW M5 PT-IP Objective Assessments Start: 12/21/21 08:21 Freq: NEEDED Status: Active Protocol: Document 12/21/21 09:44 AW (Rec: 12/21/21 11:56 AW [id number]) Orientation Orientation/Cognition Level of Alertness Alert Orientation Name,Day of Week,Place, Situation Language Function Ability No Deficits Noted Safety Awareness Understands Safety Issues Memory Description No Deficits Noted Gross Range of Motion Lower Extremity ROM Assessment Within Functional Limits Strength Lower Extremity Strength Assessment Bilaterally Impaired Hip 4/5 Knee 4+/5 Sensation Assessment Sensation Gross Sensation WNL Muscle Tone Muscle Tone WNL Yes M6 PT-IP Treatment Start: 12/21/21 08:21 Freq: NEEDED Status: Active Protocol: Document 12/21/21 14:37 AW (Rec: 12/21/21 14:47 AW [id number]) Physical Therapy Treatment Education Education Provided Precautions,Safety Other Treatments Other Treatment Performed Discussed equipment rental with pt who states his is in contact with DME providers . Reviewed precautions and pt was able to recall and functionally implement 3/3 with min cues. M7 PT-IP Assessment and Plan Start: 12/21/21 08:21 Freq: NEEDED Status: Active Protocol: Document 12/21/21 14:37 AW (Rec: 12/21/21 15:47 AW [id number]) PT Summary Assessment and Plan Summary Impairments Pain,ROM,Strength,Balance,Bed Mobility,Transfers,Gait, Activity Tolerance Progress Towards Goals Progressing Toward Goals,Slow Progress due to Pain,Slow Progress due to Activity Tolerance Assessment Summary Darryl was able to progress his gait with FWW this PM. He has improved understanding of his precautions. He will need to completed stair training with his before discharge . Was unable to coordinate a time since pt's does not drive and needs to get a ride. Will follow up AM. Goals Bed Mobility Goal Contact Guard Assistance Transfer Goal Standby Assistance,Front Wheeled Walker Gait Goal Standby Assistance,Front Wheel Walker Gait Distance 75 Other Goals -- up/down 2 steps with R rail and SPC vs SOUND TRUCK OPERATOR Days to Meet Goals 3 Frequency of Treatment Frequency Of Treatment Twice a Day Treatment Plan Physical Therapy Treatment Plan Bed Mobility Training,Transfer Training,Gait Training, Therapeutic Exercise,Balance Retraining,Post Op Education, Discharge Planning,Hot or Cold Pack,Neuromuscular Re-ed Other Recommendations and Next Treatment stairs with spouse Focus Precautions Lumbar Precautions Log Roll,No Twisting,Limit Bending,Lifting Restriction of 10 lbs,Gait Belt above Incisional Area Other Precautions skin tear R forearm Recommendations To Nursing Amount of Assist Needed 1 Person Assist Discharge Recommendations PT Discharge Recommendations Home with Assistance,Home with 24/7 Assist Available Other Discharge Recommendations Pt likely to benefit from hospital bed and BSC. Spouse to inquire about rental. Transportation Needs at Discharge Private Vehicle
--- NOTE | 2021-12-21 17:03 | CM.DANOTE ---
DCP/Assessment: Reviewed chart. Patient is a 81yr old male admitted to [facility] for elective spine surgery. PCP is Dr. Morgan. Primary payor is 1)Medicare 2)[facility]. Met with patient explained CM/SW role. Patient reports that he hopes to d/c home tomorrow with supportive spouse and additional DME that spouse is picking up. PT/Shanice reports that they are doing another caregiver training with spouse in AM tomorrow. Per PT patient and spouse did very well today. P: Home when stable. Discharge Planning/Care Management CM Discharge Assessment Start: 12/21/21 17:02 Freq: Status: Active Protocol: Document 12/21/21 17:02 KJS (Rec: 12/21/21 17:03 KJ [id number]) Discharge Planning Assessment Assigned Chief Safety Officer DENIZ Tony Contact Information Rhiannon Richmond (spouse) # [phone] Advance Directives? Yes Advance Directives on File No History Provided By Patient,Medical Record Prior Living Arrangements House Household Members spouse Type of transporation used prior to Drives own vehicle admit Independent with ADL's Yes Is patient alert and oriented? Yes Caregiver for Another No DME Already Rented / Owned FWW / Walker Barriers to Discharge No Discharge Plan Home Transportation Arrangement Spouse Referrals Initiated None needed Whiteboard Updated in Patient Room with Yes name and ext. # of Chief Safety Officer Review Status In Process Next Review Type Continued Stay Review Pre-Anesthesia Assessment Start: 12/15/21 10:12 Freq: Status: Active Protocol: Document 12/15/21 10:12 CAB (Rec: 12/15/21 12:46 CAB [id number]) Pre-Anesthesia Assessment Patient Information Reviewed Via Phone Assessment Assessment Completed With Patient,Spouse Primary Care Provider Froilan Morgan Seen Specialist in Last 12 Months Yes Specialist Seen Orthopedist,Lead Web Developer Primary Language Polish Preferred Language Polish Inspector Welded Parts Required No Height 175.26 cm Weight 83.915 kg Body Mass Index (BMI) 27.3 Hearing Ability Hard of Hearing Visual Assist Magnifying Glass Dentition Type Teeth, Natural Present,Teeth, Missing Barriers to Learning None Hx Anesthesia Reactions No Hx Family Anesthesia Reaction No Hx Malignant Hyperthermia No Hx Blood Transfusions Yes: w/bilateral lung transplant 2009 Anesthesia Review Requested Yes: COVID 09/17/21, required admit, 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 No: Pt stoopped home 02 stopped first part october Does patient have MEDINA/SOB No Hx Sleep Apnea No Currently Taking a Beta Fernando Yes: Carvediolol Hx Chest Pain No Hx SOB No Hx Syncope or Dizziness No Anti-Coagulant Therapy No Has a Fresh Work Inspector No Hx Pacemaker/ICD No Pacemaker Rep Required? No Comment Goes up and down ramp with occasional shortness of breath Diet Type At Home Regular dysphagia No Gastrointestinal Symptoms Constipation Bladder Pattern Incontinent,Nocturia Urinary Catheter Present No Hx Urinary Self Catheterization No Diabetes Yes: Pt does not check blood sugar at home HgbA1C 6.3 Date 12/08/21 Hx Drug Resistant Organism No Presence of External or Internal Medical Yes: Bilat eye IOLs Devices Have you had any close contact with Yes: Covid infection 09/17/21 someone diagnosed with COVID-19? Received a COVID vaccine? Yes Received all doses? Yes Marital Status Lives With spouse Prior Living Arrangements House Number of Floors (Floors) One Floor Support System Spouse Does the Patient Have Assistance After Yes Surgery Patient Discharge Plan Description Return Home Comment Pt not advised on length of stay per surgeon Feels Safe in Current Environment Yes Been Physically Hurt or Threatened By a No Person in Current Environment Do you have thoughts of harming yourself None or others? Are you currently considering suicide? No Do you have a plan to hurt yourself or No Plan others? Do You Have Any Spiritual Beliefs That No May Affect Your HC Choices? Do You Have Any Cultural Practices That No May Affect Your HC Choices? Comment Sikhism Who Can We Speak to About Patient's Care Family, friends Identifying Code for Release of Patient Declines to issue Information Health Care Proxy/Next of Kin Rhiannon () Health Care Proxy Emergency Contact Name Rhiannon Emergency Contact Advance Directives? Yes Advance Directives on File No Power of Residential Program Coordinator Yes Power of Residential Program Coordinator Name Rhiannon PAC Instructions Diabetes instructions,Durable medical equipment,Medications to take/avoid,Nasal antibiotic ,No ETOH/petroleum product on skin DOS,NPO,Post-op transportation,Pre-surgical wash,Sensory aids,Sturdy shoes /comfortable clothes,Do not bring valuables and remove jewelry
[2021-12-21] MEDS: ONDANSETRON 4 MG/2 ML INJ IV (19:54)
[2021-12-21] MEDS: TACROLIMUS 0.5 MG CAPSULE PO (20:10)
[2021-12-21] MEDS: SODIUM CHLORIDE 0.9% FLUSH 10 ML IV (20:12)
[2021-12-22] VITALS (8 sets, daily range): BP systolic 125–144; BP diastolic 37–79; PULSE 73–93; RESP 16–18; TEMP 36.1–36.6; O2SAT 95–99
[2021-12-22] MEDS: LEVOTHYROXINE 150 MCG TABLET PO (05:24)
[2021-12-22] MEDS: ACETAMINOPHEN 325 MG TABLET 975 MG PO ×3 (09:09→21:06)
[2021-12-22] MEDS: carvediloL 3.125 MG TABLET PO ×2 (09:10→21:25)
[2021-12-22] MEDS: DOCUSATE 100 MG CAPSULE PO ×2 (09:11→21:06)
[2021-12-22] MEDS: SITAGLIPTIN 50 MG TABLET PO (09:11)
[2021-12-22] MEDS: predniSONE 5 MG TABLET PO (09:11)
[2021-12-22] MEDS: TACROLIMUS 0.5 MG CAPSULE 1 MG PO (09:12)
[2021-12-22] MEDS: SODIUM CHLORIDE 0.9% FLUSH 10 ML IV (09:13)
--- NOTE | 2021-12-22 10:11 | PT.IPTN ---
Current Diagnoses Other spondylosis with radiculopathy, lumbar region (12/20/21) Spinal stenosis, lumbar region with neurogenic claudication (12/20/21) Surgery Performed Operation Date: 12/20/21 07:45 Actual Procedures p L2-3, L3-4 TLIF w. posterior instrumentation -Robot(Not Applicable) - Claudine Ureña MD Physical Therapy Treatment Note M2 PT-IP Current Condition Start: 12/21/21 08:21 Freq: NEEDED Status: Active Protocol: Document 12/21/21 09:44 AW (Rec: 12/21/21 11:44 AW [id number]) Physical Therapy Current Condition Current Condition Evaluation Date 12/21/21 Treatment Diagnosis s/p L2-3 L3-4 TLIF; difficulty in walking M3 PT-IP Subjective Start: 12/21/21 08:21 Freq: NEEDED Status: Active Protocol: Document 12/22/21 09:48 KS (Rec: 12/22/21 12:34 KS [id number]) Subjective Physical Therapy Visit Type Type Treatment Note Visit Start Time 09:48 Visit Stop Time 10:11 Total Visit Minutes 23 Physical Therapy Visit Comments Patient Comments Pt agreeable to working w/ therapy. Therapy Pain Assessment Pain When Pain Assessed During Mobility Pain Present Pain Present Pain Reported Location low back Intensity 7 Scale Used Numeric (0 - 10) 5/10 at rest Pain Behaviors Facial Grimacing,Guarding Pain Management Techniques Modification of Treatment,Re- positioning,Timing of Activity with Medications M4 PT-IP Mobility and Gait Start: 12/21/21 08:21 Freq: NEEDED Status: Active Protocol: Document 12/22/21 09:48 KS (Rec: 12/22/21 12:34 KS [id number]) PT-Bed Mobility Assessment Scooting Scooting to Edge of Bed Contact Guard Assistance PT-Transfer Assessment Sit to and From Stand Sit to and from Stand Moderate Assistance,1 Person Assistance,Use of Upper Extremities Equipment Transfer Assistive Device Gait Belt,Front Wheeled Walker Orthotic/Prosthetic Devices or Brace: No Transfers Transfer Destination Chair Transfer Technique Pt ambulated w/ FWW Transfer Ability Level of Assist Moderate Assistance,1 Person Assistance,Use of Upper Extremities Comments Mobility Comments Pt in chair upon arrival from therapy reporting 5/10 pain but agreeable to ambulate. Mod A for sit<>stand from chair w / cues for hand placement w/ FWW. Pt then ambulated ~60 ft in room w/ FWW CGA. Pt ambulated slowly w/ decreased stride and foot clearance and c/o increased pain in low back of 03/12. Pt returned to chair CGA w/ cues for slow descent. He then completed 1x10 bilateral ankle pumps, quad sets, and glute sets. Pt left in chair w/ all needs in reach . Gait Assessment Gait Gait Assistance Required: Contact Guard Assist Distance (Feet) 60 Able to Maintain Weight Bearing Status Yes During Gait Assistive Devices Assistive Device Gait Belt,Front Wheeled Walker Orthotic/Prosthetic Devices or Brace: No Gait Deviations General Gait Pattern Antalgic,Decreased Stride Length,Decreased Feet Clearance Factors Limiting Gait Function Factors Limiting Gait Function Decreased Activity Tolerance, Decreased Strength,Pain,Poor Safety Awareness Comments Gait Comments Please refer to mobility section for details. Stair Climbing Assessment Comments Stair Climbing Comments Not assessed due to increased pain and fatigue. Will need to complete prior to d/c - pt aware. PT-Balance Assessment Sitting Balance and Reactions Static Sitting Balance Ability Good Dynamic Sitting Balance Ability Good Standing Balance and Reactions Static Standing Balance Ability Good Dynamic Standing Balance Ability Fair Device Used FWW M5 PT-IP Objective Assessments Start: 12/21/21 08:21 Freq: NEEDED Status: Active Protocol: Document 12/21/21 09:44 AW (Rec: 12/21/21 11:56 AW [id number]) Orientation Orientation/Cognition Level of Alertness Alert Orientation Name,Day of Week,Place, Situation Language Function Ability No Deficits Noted Safety Awareness Understands Safety Issues Memory Description No Deficits Noted Gross Range of Motion Lower Extremity ROM Assessment Within Functional Limits Strength Lower Extremity Strength Assessment Bilaterally Impaired Hip 4/5 Knee 4+/5 Sensation Assessment Sensation Gross Sensation WNL Muscle Tone Muscle Tone WNL Yes M6 PT-IP Treatment Start: 12/21/21 08:21 Freq: NEEDED Status: Active Protocol: Document 12/22/21 09:48 KS (Rec: 12/22/21 12:34 KS [id number]) Physical Therapy Treatment Exercises Exercises Ankle Pumps,Gluteal Sets,Quad Sets Education Education Provided Precautions,Safety M7 PT-IP Assessment and Plan Start: 12/21/21 08:21 Freq: NEEDED Status: Active Protocol: Document 12/22/21 09:48 KS (Rec: 12/22/21 12:34 KS [id number]) PT Summary Assessment and Plan Summary Impairments Pain,ROM,Strength,Balance,Bed Mobility,Transfers,Gait, Activity Tolerance Progress Towards Goals Progressing Toward Goals,Slow Progress due to Pain,Slow Progress due to Activity Tolerance Assessment Summary Pt required Mod A for sit<> stand from chair today and only able to tolerate ~60 ft ambulation w/ FWW due to increased pain and fatigue. He will need to complete stair training and caregiver training w/ his prior to d/c. Spoke w/ pts and she said she was unable to come in this AM but potentially this afternoon although she doesnt drive and wants to wait for equipment rental delivery . Will continue to f/u and assess pts progress. Goals Bed Mobility Goal Contact Guard Assistance Transfer Goal Standby Assistance,Front Wheeled Walker Gait Goal Standby Assistance,Front Wheel Walker Gait Distance 75 Other Goals -- up/down 2 steps with R rail and SPC vs ELECTRICIAN YARD Days to Meet Goals 3 Frequency of Treatment Frequency Of Treatment Twice a Day Treatment Plan Physical Therapy Treatment Plan Bed Mobility Training,Transfer Training,Gait Training, Therapeutic Exercise,Balance Retraining,Post Op Education, Discharge Planning,Hot or Cold Pack,Neuromuscular Re-ed Other Recommendations and Next Treatment stairs with spouse Focus Precautions Lumbar Precautions Log Roll,No Twisting,Limit Bending,Lifting Restriction of 10 lbs,Gait Belt above Incisional Area Other Precautions skin tear R forearm Recommendations To Nursing Amount of Assist Needed 1 Person Assist Discharge Recommendations PT Discharge Recommendations Home with Assistance,Home with 24/ Assist Available Other Discharge Recommendations Pt likely to benefit from hospital bed and BSC. Spouse to inquire about rental. Transportation Needs at Discharge Private Vehicle
[2021-12-22] MEDS: OXYCODONE IR 5 MG TABLET PO ×3 (10:41→21:06)
--- NOTE | 2021-12-22 11:53 | OT.IP.TRT ---
Current Diagnoses Other spondylosis with radiculopathy, lumbar region (12/20/21) Spinal stenosis, lumbar region with neurogenic claudication (12/20/21) Surgery Performed Operation Date: 12/20/21 07:45 Actual Procedures p L2-3, L3-4 TLIF w. posterior instrumentation -Robot(Not Applicable) - Claudine Ureña MD Occupational Therapy Treatment Note M2 OT-IP Current Condition Start: 12/21/21 12:38 Freq: Status: Active Protocol: Document 12/21/21 09:08 [facility] (Rec: 12/21/21 12:53 [facility] [id number]) Occupational Therapy Current Condition Current Condition Evaluation Date 12/21/21 Treatment Diagnosis S/p L2-3, L3-4 TLIF Diagnosis Onset Date 12/20/21 Post Operative Precautions Lumbar Precautions Log Roll,No Twisting,Limit Bending,Lifting Restriction of 10 lbs,Gait Belt above Incisional Area M3 OT- IP Subjective and Pain Start: 12/21/21 12:38 Freq: Status: Active Protocol: Document 12/22/21 12:02 [facility] (Rec: 12/22/21 12:12 [facility] [id number]) OT- Subjective Occupational Therapy Visit Type Type Treatment Note Visit Start Time 11:37 Visit Stop Time 11:53 Total Visit Minutes 16 Occupational Therapy Visit Comments Patient Comments Pt wanting to get up to brush his teeth. Patient/Caregiver Goals TO go home. OT Pain Assessment Pain When Pain Assessed At Rest Pain Present Pain Present Pain Reported Location low back Intensity 6 Scale Used Numeric (0 - 10) M4 OT- IP ADL's Start: 12/21/21 12:38 Freq: Status: Active Protocol: Document 12/22/21 12:02 [facility] (Rec: 12/22/21 12:12 [facility] [id number]) OT ADL-Grooming General Evaluation Grooming Ability Standby Assistance Areas Needing Assistance Retrieving/Set-up of Grooming Items Comments OT Grooming Comments Able to do while standing. OT ADL-Oral Care General Eval Oral Care Ability Standby Assistance Comments Oral Care Comments Educated best to spit into a cup to best follow his back precautions. OT ADL-Dressing Comments OT Dressing Comments Pt states just wear slip on shoes at home. OT ADL-Toileting Comments OT Toileting Comments NOt performed. OT ADL-Bathing Comments OT Bathing Comments NOt performed. M5 OT- IP IADL's Start: 12/21/21 12:38 Freq: Status: Active Protocol: Document 12/21/21 09:08 [facility] (Rec: 12/21/21 12:53 [facility] [id number]) OT-Instrumental Activities of Daily Living Home Safety Awareness Awareness of Need for Assistance at Home Good Awareness Ability to Problem Solve Emergency Able to Problem Solve Situations Home Safety Comments Pt's to assist pt for all his needs. Medication Management Medication Management Caregiver Administers Money Management Money Management Caregiver Provides Assistance Meal Preparation Meal Preparation Caregiver Provides Assist Assignment Editor Assignment Editor Caregiver Provides Assist M6 OT- IP Functional Cognition Start: 12/21/21 12:38 Freq: Status: Active Protocol: Document 12/22/21 12:02 [facility] (Rec: 12/22/21 12:12 [facility] [id number]) Cognitive Factors Limiting Selfcare Function Cognitive Comments Cognitive Assessment Comments Pt doing better today regarding hand placement and safety with FWW. M7 OT- IP Mobility and Balance Start: 12/21/21 12:38 Freq: Status: Active Protocol: Document 12/22/21 12:02 [facility] (Rec: 12/22/21 12:12 [facility] [id number]) OT-Transfer Assessment Sit to and From Stand Sit to and from Stand Moderate Assistance Transfers Transfer Ability Contact Guard Assistance Technique Transfer Destination Bed Transfer Technique Stand Step Pivot Devices Transfer Assistive Devices Gait Belt,Front Wheeled Walker Comments Mobility Comments Pt needing MODA to stand due to having more back pain today . Once on his feet pt able to walk with FWW and heavy use of his arms on the FWW to walk to and from the sink with CGA. CHRISTIANA to help ease down to the recliner. OT- Balance Assessment Sitting Balance and Reactions Static Sitting Balance Ability Good Dynamic Sitting Balance Ability Fair Standing Balance and Reactions Static Standing Balance Ability Fair M8 OT- IP Objective Assessments Start: 12/21/21 12:38 Freq: Status: Active Protocol: Document 12/21/21 09:08 [facility] (Rec: 12/21/21 12:53 [facility] [id number]) OT Gross Range of Motion Upper Extremity Range of Motion Assessment Right Impaired OT Strength Upper Extremity Strength Assessment Right Impaired OT-Muscle Tone Assessment Muscle Tone WNL Yes M9 OT- IP Assessment and Plan Start: 12/21/21 12:38 Freq: Status: Active Protocol: Document 12/22/21 12:02 [facility] (Rec: 12/22/21 12:12 [facility] [id number]) OT Summary Assessment and Plan Potential Rehabilitation Potential Good Analytic Complexity at Evaluation Low Summary OT Impairments Pain,Strength,Balance, Functional Mobility,Grooming, Dressing,Toileting,Bathing, Toilet Transfers,Shower Transfers,Activity Tolerance Progress Towards Goals Progressing Toward Goals,Slow Progress due to Pain Assessment Summary Pt's has rented a recliner and hospital bed and just waiting on delivery. Pt having more pain today and needing more assist to stand. Pt will continue to benefit with 24/7 assist at home and have home health. Pt's son installing a bidet for him today. Goals Grooming Goal Independent Dressing Goal Independent Toileting Goal Minimal Assistance Bathing Goal Independent Toilet Transfer Goal Independent Shower Transfer Goal Independent Patient/Caregiver Education Goal Demonstrate Post-Op Precautions,Caregiver Independent Assisting Patient Days to Meet Goals 4 Frequency of Treatment Frequency Of Treatment Once a Day Treatment Plan OT Treatment Plan ADL Training,Functional Cognition Training,Functional Mobility,Patient/Family Education,Discharge Planning Other Treatment Recommendations and Next shower Treatment Focus Discharge Recommendations OT Discharge Recommendations Home with 24/7 Assist Available,Home Health Transportation Needs at Discharge Private Vehicle
--- NOTE | 2021-12-22 14:03 | PM.PNPO.1 ---
Subjective Subjective Date Patient Seen: 12/22/21 Time Patient Seen: 14:03 Interval history: Patient is complaining of moderate low back pain this afternoon.? He notes physical therapy has not cleared him to go home today.? He is using oxycodone 5 mg and Tylenol as needed.? He did suffer a significant right arm skin tear during his hospital stay. Exam Vital Signs (past 8 hours): - 12/22/21 07:55 12/22/21 09:10 12/22/21 13:46 Temperature 97.2 F L 97.4 F L Pulse Rate 77 77 73 Respiratory Rate 18 17 Blood Pressure 144/78 H 144/78 H 131/53 L Pulse Oximetry 97 95 Oxygen Delivery Method Room Air Oxygen Flow Rate 0 Narrative Exam Narrative: Pleasant 81-year-old male, resting comfortably in his chair, no acute distress.? Dressing has been changed since yesterday and demonstrates some mild saturation was serosanguineous fluid on the right a lateral incision. There is no surrounding erythema or induration or signs of a hematoma. Bilateral lower extremity: Motor functions are grossly intact, sensation is grossly intact to light touch, calves are soft, and nontender to palpation.? There is an extensive right forearm tear that is currently dressed with Tegaderm. Objective Labs Result Diagrams: 12/21/21 05:42 PFSH Medical History Anemia Coronary artery disease Diabetes Hearing impaired Hyperlipidemia Hypertension Hypothyroid IPF (idiopathic pulmonary fibrosis) Tubular adenoma of colon Surgical History H/O lung transplant (2009) Hx of bilateral cataract extraction Hx of cholecystectomy Family History Father Patient denies significant medical history Mother Patient denies significant medical history Social History marital status: household members: spouse Smoking Status: Former smoker alcohol intake: current Assessment & Plan Post-op Postoperative Procedures: Procedures Operation Date: 12/20/21 07:45 Actual Procedure Side Surgeon p L2-3, L3-4 TLIF w. posterior instrumentation -Robot Not Applicable Claudine Ureña MD Postoperative day: 2 Postoperative status narrative: Stable status post L2-3, L3-4 TLIF Postoperative plan narrative: -mobilize with PT. Limit bending, lifting, twisting x6 weeks. Weightbearing as tolerated with front wheel walker -continue with multimodal pain management -dressed right arm skin tear with Tegaderm -remove catheter and change/reinforce dressing -likely DC home tomorrow, once cleared by PT Quality VTE Deep Vein Thrombosis/Pulmonary Embolism Present on Admission: No
--- NOTE | 2021-12-22 15:19 | PT.IPTN ---
Current Diagnoses Other spondylosis with radiculopathy, lumbar region (12/20/21) Spinal stenosis, lumbar region with neurogenic claudication (12/20/21) Surgery Performed Operation Date: 12/20/21 07:45 Actual Procedures p L2-3, L3-4 TLIF w. posterior instrumentation -Robot(Not Applicable) - Claudine Ureña MD Physical Therapy Treatment Note M2 PT-IP Current Condition Start: 12/21/21 08:21 Freq: NEEDED Status: Active Protocol: Document 12/21/21 09:44 [facility] (Rec: 12/21/21 11:44 AW [id number]) Physical Therapy Current Condition Current Condition Evaluation Date 12/21/21 Treatment Diagnosis s/p L2-3 L3-4 TLIF; difficulty in walking M3 PT-IP Subjective Start: 12/21/21 08:21 Freq: NEEDED Status: Active Protocol: Document 12/22/21 15:00 [facility] (Rec: 12/22/21 16:00 [facility] [id number]) Subjective Physical Therapy Visit Type Type Treatment Note Visit Start Time 15:00 Visit Stop Time 15:19 Total Visit Minutes 19 Physical Therapy Visit Comments Patient Comments Pt agreeable to working w/ therapy. Therapy Pain Assessment Pain When Pain Assessed During Mobility Pain Present Pain Present Pain Reported Location low back Intensity 7 Scale Used Numeric (0 - 10) 5/10 at rest Pain Behaviors Facial Grimacing,Guarding Pain Management Techniques Modification of Treatment,Re- positioning,Timing of Activity with Medications M4 PT-IP Mobility and Gait Start: 12/21/21 08:21 Freq: NEEDED Status: Active Protocol: Document 12/22/21 15:00 [facility] (Rec: 12/22/21 16:00 [facility] [id number]) PT-Transfer Assessment Sit to and From Stand Sit to and from Stand Minimal Assistance,Moderate Assistance,1 Person Assistance ,Use of Upper Extremities Equipment Transfer Assistive Device Gait Belt,Front Wheeled Walker Orthotic/Prosthetic Devices or Brace: No Transfers Transfer Destination Chair Transfer Technique Pt ambulated w/ FWW Transfer Ability Level of Assist Minimal Assistance,Moderate Assistance,1 Person Assistance ,Use of Upper Extremities Comments Mobility Comments Pt in chair upon arrival and agreeable to ambulation. Min/ Mod A for sit<>stand w/ FWW. Pt then ambulated ~80 ft w/ FWW and heavy weightbearing through BUE due to pain. Pt then got back into chiar and after sitting requested to use toilet. Slightly less assist for second sit<>Stand from chair but still Min/Mod. Pt stood while voiding - RN aware . Pt then returned to chair CGA w/ FWW. Pt left in chair w / all needs in reach and reporting fatigue. Gait Assessment Gait Gait Assistance Required: Contact Guard Assist Distance (Feet) 80 Able to Maintain Weight Bearing Status Yes During Gait Assistive Devices Assistive Device Gait Belt,Front Wheeled Walker Orthotic/Prosthetic Devices or Brace: No Gait Deviations General Gait Pattern Antalgic,Decreased Stride Length,Decreased Feet Clearance Factors Limiting Gait Function Factors Limiting Gait Function Decreased Activity Tolerance, Decreased Strength,Pain,Poor Safety Awareness Comments Gait Comments Please refer to mobility section for details. Stair Climbing Assessment Comments Stair Climbing Comments Pt agreeable to try tomorrow. PT-Balance Assessment Sitting Balance and Reactions Static Sitting Balance Ability Good Dynamic Sitting Balance Ability Good Standing Balance and Reactions Static Standing Balance Ability Good Dynamic Standing Balance Ability Fair Device Used FWW M5 PT-IP Objective Assessments Start: 12/21/21 08:21 Freq: NEEDED Status: Active Protocol: Document 12/21/21 09:44 [facility] (Rec: 12/21/21 11:56 AW [id number]) Orientation Orientation/Cognition Level of Alertness Alert Orientation Name,Day of Week,Place, Situation Language Function Ability No Deficits Noted Safety Awareness Understands Safety Issues Memory Description No Deficits Noted Gross Range of Motion Lower Extremity ROM Assessment Within Functional Limits Strength Lower Extremity Strength Assessment Bilaterally Impaired Hip 4/5 Knee 4+/5 Sensation Assessment Sensation Gross Sensation WNL Muscle Tone Muscle Tone WNL Yes M6 PT-IP Treatment Start: 12/21/21 08:21 Freq: NEEDED Status: Active Protocol: Document 12/22/21 15:00 [facility] (Rec: 12/22/21 16:00 [facility] [id number]) Physical Therapy Treatment Education Education Provided Precautions,Safety M7 PT-IP Assessment and Plan Start: 12/21/21 08:21 Freq: NEEDED Status: Active Protocol: Document 12/22/21 15:00 [facility] (Rec: 12/22/21 16:00 [facility] [id number]) PT Summary Assessment and Plan Summary Impairments Pain,ROM,Strength,Balance,Bed Mobility,Transfers,Gait, Activity Tolerance Progress Towards Goals Progressing Toward Goals,Slow Progress due to Pain,Slow Progress due to Activity Tolerance Assessment Summary Pt able to tolerate further ambulation distance this PM and required slightly less assist for sit<>Stand w/ FWW. He still requires Min/Mod A to get fully up and has difficulty letting go of chair arms to use FWW. When ambulating, pt relies heavily on BUE due to pain in low back . Attempted to schedule caregiver training however pts unable to provide time of arrival tomorrow. Pt will need to complete stair training and caregiver training prior to d/c if going home. Goals Bed Mobility Goal Contact Guard Assistance Transfer Goal Standby Assistance,Front Wheeled Walker Gait Goal Standby Assistance,Front Wheel Walker Gait Distance 75 Other Goals -- up/down 2 steps with R rail and SPC vs [employer] Days to Meet Goals 3 Frequency of Treatment Frequency Of Treatment Twice a Day Treatment Plan Physical Therapy Treatment Plan Bed Mobility Training,Transfer Training,Gait Training, Therapeutic Exercise,Balance Retraining,Post Op Education, Discharge Planning,Hot or Cold Pack,Neuromuscular Re-ed Other Recommendations and Next Treatment stairs with spouse Focus Precautions Lumbar Precautions Log Roll,No Twisting,Limit Bending,Lifting Restriction of 10 lbs,Gait Belt above Incisional Area Other Precautions skin tear R forearm Recommendations To Nursing Amount of Assist Needed 1 Person Assist Discharge Recommendations PT Discharge Recommendations Home with Assistance,Home with / Assist Available Other Discharge Recommendations Pt likely to benefit from hospital bed and BSC. Spouse to inquire about rental. Transportation Needs at Discharge Private Vehicle
[2021-12-22] MEDS: TACROLIMUS 0.5 MG CAPSULE PO (21:05)
[2021-12-22] MEDS: SENNOSIDES 8.6 MG TABLET 17.2 MG PO (21:06)
[2021-12-22] MEDS: MAG HYDROX/ALUM/SIMETH 30 ML UDC PO (23:49)
[2021-12-23] VITALS (7 sets, daily range): BP systolic 88–158; BP diastolic 54–81; PULSE 72–102; RESP 15–18; TEMP 36.2–36.7; O2SAT 93–99
[2021-12-23] MEDS: HYDROMORPHONE 0.5 MG INJ 0.2 MG IV
[2021-12-23] MEDS: OXYCODONE IR 5 MG TABLET PO ×3 (02:46→11:04)
[2021-12-23] MEDS: LEVOTHYROXINE 150 MCG TABLET PO (05:46)
[2021-12-23] MEDS: ACETAMINOPHEN 325 MG TABLET 975 MG PO ×3 (08:49→20:54)
[2021-12-23] MEDS: TACROLIMUS 0.5 MG CAPSULE 1 MG PO (08:51)
[2021-12-23] MEDS: predniSONE 5 MG TABLET PO (08:52)
[2021-12-23] MEDS: SITAGLIPTIN 50 MG TABLET PO (08:52)
[2021-12-23] MEDS: DOCUSATE 100 MG CAPSULE PO ×2 (08:52→20:55)
[2021-12-23] MEDS: MAGNESIUM HYDROXIDE 30 ML UDC PO ×2 (08:53→20:54)
[2021-12-23] MEDS: SODIUM CHLORIDE 0.9% FLUSH 10 ML IV ×2 (08:53→20:56)
[2021-12-23] MEDS: AZITHROMYCIN 250 MG TABLET 500 MG PO (09:12)
[2021-12-23] MEDS: TRIMETH/SULFA 160/800 (DS) TABLET 0.5 TAB PO (09:13)
[2021-12-23] MEDS: carvediloL 3.125 MG TABLET PO (09:30)
[2021-12-23] MEDS: MAG HYDROX/ALUM/SIMETH 30 ML UDC PO (09:30)
--- NOTE | 2021-12-23 09:36 | P.DS_ITS ---
History of Present Illness History of Present Illness Date Patient Seen: 12/23/21 Time Patient Seen: 09:37 Chief complaint: Back pain Narrative: Patient states his pain is [id number]. Denies fever or chills. No nausea or vomiting. How long discussion regarding patient's disposition. Patient states his will not be able to care for him. The new not have the proper supplies in place at this point for him to be safe in home environment. Discharge Providers Provider Date of admission: 12/20/21 05:49 Discharge Date: 12/23/21 Primary care physician: Froilan Morgan MD Consults: 12/15/21 12:46 Consult to Anesthesiology Routine Comment: Consulting Provider: Anesthesiologist Reason for consultation: PAC courtesy re: Covid 09/17/21 required admit, double lung transplant 12/20/21 15:08 Consult to Occupational Therapy Evaluate & Treat Comment: Physician Instructions: Evaluate and treat Consult to Physical Therapy Evaluate & Treat Comment: Physician Instructions: Evaluate and Treat Discharge provider: Lawrence Quiroga PA-C Exam Vital Signs (past 8 hours): - 12/23/21 03:19 12/23/21 07:30 12/23/21 08:10 Temperature 97.5 F L 98.1 F Pulse Rate 102 H 102 H 90 Respiratory Rate 15 18 16 Blood Pressure 141/81 H 158/69 H 118/74 Pulse Oximetry 93 98 12/23/21 09:30 Temperature Pulse Rate 90 Respiratory Rate Blood Pressure 118/74 Pulse Oximetry Oxygen Delivery Method Room Air Oxygen Flow Rate 0 Narrative Exam Narrative: 81-year-old male sitting comfortably having breakfast in bedside chair. Patient no apparent distress. Motor functions intact bilateral lower extremities. Sensation grossly intact bilateral lower extremities. Dressing is clean dry and intact. Right arm skin tear covered with Tegaderm. Const General: cooperative Orientation: alert Resp Effort & Inspection: normal respiratory effort and able to speak in complete sen tences Objective Labs Result Diagrams: 12/21/21 05:42 PFSH Medical History Anemia Coronary artery disease Diabetes Hearing impaired Hyperlipidemia Hypertension Hypothyroid IPF (idiopathic pulmonary fibrosis) Tubular adenoma of colon Surgical History H/O lung transplant (2009) Hx of bilateral cataract extraction Hx of cholecystectomy Family History Father Patient denies significant medical history Mother Patient denies significant medical history Social History marital status: household members: spouse Smoking Status: Former smoker alcohol intake: current Discharge Assessment & Plan Assessment and Plan Assessment: Patient progressing slower than expected status post L2-L3, L3-L4 fusion Skin tear right arm, new dressing today with antibiotic ointment, Telfa, Kerlix Chronic anemia due to chronic disease Acute blood-loss anemia due to blood loss during surgery 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 Discharge Plan Discharge Plan Patient Disposition: SNF Transfer to: [facility] Discharge orders & Medications Prescriptions: New docusate sodium 100 mg Capsule 100 mg PO BID Qty: 20 0RF oxycodone 5 mg Tablet 5 mg PO Q3HR PRN (Reason: Pain, Moderate (4-6)) Qty: 60 0RF hydroxyzine pamoate 25 mg Capsule 25 mg PO Q4HR PRN (Reason: Nausea And Vomiting) Qty: 30 0RF oxycodone 10 mg tablet 10 mg PO Q6H PRN (Reason: pain (scale score 7-10)) Qty: 30 0RF oxycodone 5 mg tablet 5 mg PO Q4H PRN (Reason: pain (scale score 4-6)) Qty: 60 0RF oxycodone 10 mg tablet 10 mg PO Q4H PRN (Reason: pain (scale score 7-10)) Qty: 30 0RF Continued valganciclovir 450 mg tablet 450 mg PO DAILY 0RF levothyroxine 137 mcg tablet 150 mcg PO QAM 0RF prednisone 5 mg tablet 5 mg PO DAILY 0RF Label Comments: TAKE 1 TABLET BY MOUTH EVERY DAY sulfamethoxazole-trimethoprim 800-160 mg tablet 0.5 tab PO DIRECTED 0RF Rx Instructions: TAKE 1/2 TABLET BY MOUTH EVERY SUNDAY, SUNDAY, AND SUNDAY carvedilol 3.125 mg tablet 3.125 mg PO BID 0RF itraconazole 100 mg capsule 100 mg PO BID 0RF tacrolimus 1 mg capsule 1 mg PO QAM 0RF Label Comments: TAKE 1 CAPSULE BY MOUTH EVERY DAY IN THE MORNING tacrolimus 0.5 mg capsule 0.5 mg PO QPM 0RF Label Comments: TAKE 1 CAPSULE BY MOUTH EVERY EVENING azithromycin 500 mg tablet 500 mg PO DIRECTED 0RF Rx Instructions: TAKE 1 TABLET BY MOUTH EVERY SUNDAY, SUNDAY, AND SUNDAY Januvia 50 mg tablet 50 mg PO DAILY 0RF Label Comments: TAKE 1 TABLET BY MOUTH EVERY DAY acetaminophen 500 mg Capsule 1,000 mg PO TID 0RF Follow up/Referrals: Claudine Ureña MD [Physician] - (2 weeks) Froilan Morgan MD [Primary Care Provider] - Diet/Activity/Treatments Diet: Carb-consistent/Diabetic Activity: Limit bending, twisting, lifting Other treatments: Change dressing to right arm as needed Skin/Wound/Dressing Care Skin care: Skin tear right arm dress with antibiotic ointment, Telfa, Kerlix Dressing: Lumbar dressing should stay clean and dry [facility] Reason for rehabilitation: Post-operative therapy Rehab type: Physical therapy and Occupational therapy Visit Report/Discharge Packet Instructions: DI for Prescription Opioid Use, DI for Transforaminal Lumbar Interbody Fusion Stand Alone Forms: Surgery Discharge Discharge Data Primary Care Provider: Froilan Morgan Quality VTE Deep Vein Thrombosis/Pulmonary Embolism Present on Admission: No
[2021-12-23 09:44] LABS: Hematocrit 28.1 % (41-53); Hemoglobin 9.5 g/dL (13.5-17.5)
--- NOTE | 2021-12-23 11:49 | PT.IPTN ---
Current Diagnoses Other spondylosis with radiculopathy, lumbar region (12/20/21) Spinal stenosis, lumbar region with neurogenic claudication (12/20/21) Surgery Performed Operation Date: 12/20/21 07:45 Actual Procedures p L2-3, L3-4 TLIF w. posterior instrumentation -Robot(Not Applicable) - Claudine Ureña MD Physical Therapy Treatment Note M2 PT-IP Current Condition Start: 12/21/21 08:21 Freq: NEEDED Status: Active Protocol: Document 12/21/21 09:44 AW (Rec: 12/21/21 11:44 AW [id number]) Physical Therapy Current Condition Current Condition Evaluation Date 12/21/21 Treatment Diagnosis s/p L2-3 L3-4 TLIF; difficulty in walking M3 PT-IP Subjective Start: 12/21/21 08:21 Freq: NEEDED Status: Active Protocol: Document 12/23/21 11:38 KS (Rec: 12/23/21 12:57 KS [id number]) Subjective Physical Therapy Visit Type Type Treatment Note Visit Start Time 11:38 Visit Stop Time 11:49 Total Visit Minutes 11 Physical Therapy Visit Comments Patient Comments Pt at first refusing due to pain but then agreeable to ambulate and transfer to BSC. M4 PT-IP Mobility and Gait Start: 12/21/21 08:21 Freq: NEEDED Status: Active Protocol: Document 12/23/21 11:38 KS (Rec: 12/23/21 12:57 KS [id number]) PT-Transfer Assessment Sit to and From Stand Sit to and from Stand Maximum Assistance,1 Person Assistance,Use of Upper Extremities Equipment Transfer Assistive Device Gait Belt,Front Wheeled Walker Orthotic/Prosthetic Devices or Brace: No Transfers Transfer Destination Bedside Commode Transfer Technique Pt ambulated w/ FWW Transfer Ability Level of Assist Moderate Assistance,Maximum Assistance,1 Person Assistance ,Use of Upper Extremities Comments Mobility Comments Pt in chair upon arrival and reporting higher pain and fatigue today but wanting to try to have bowel movement on BSC. Pt able to scoot himself EOC CGA but required Max A for sit<>Stand w/ FWW today. Pt needed tactile cues to remove hands from arm rests of chair to grab handles on FWW. Upon standing, pt ambulated ~10 ft w/ FWW but today took very short steps w/ minimal ground clearance, almost sliding his feet forward to ambulate. He was unable to tolerate more than 10 ft ambulation before transferring to [facility] A for slow descent and tacile cues again for hand placement. Pt left on [facility] w/ SCALDER attending. Gait Assessment Gait Gait Assistance Required: Minimum Assistance,1 Person Assist Distance (Feet) 10 Able to Maintain Weight Bearing Status Yes During Gait Assistive Devices Assistive Device Gait Belt,Front Wheeled Walker Orthotic/Prosthetic Devices or Brace: No Gait Deviations General Gait Pattern Antalgic,Decreased Stride Length,Decreased Feet Clearance Factors Limiting Gait Function Factors Limiting Gait Function Decreased Activity Tolerance, Decreased Strength,Pain,Poor Safety Awareness Comments Gait Comments Please refer to mobility section for details. Stair Climbing Assessment Comments Stair Climbing Comments Pt not safe to attempt stairs today due to weakness and quick approach to fatigue. PT-Balance Assessment Sitting Balance and Reactions Static Sitting Balance Ability Good Dynamic Sitting Balance Ability Good Standing Balance and Reactions Static Standing Balance Ability Good Dynamic Standing Balance Ability Fair Device Used FWW M5 PT-IP Objective Assessments Start: 12/21/21 08:21 Freq: NEEDED Status: Active Protocol: Document 12/21/21 09:44 AW (Rec: 12/21/21 11:56 AW [id number]) Orientation Orientation/Cognition Level of Alertness Alert Orientation Name,Day of Week,Place, Situation Language Function Ability No Deficits Noted Safety Awareness Understands Safety Issues Memory Description No Deficits Noted Gross Range of Motion Lower Extremity ROM Assessment Within Functional Limits Strength Lower Extremity Strength Assessment Bilaterally Impaired Hip 4/5 Knee 4+/5 Sensation Assessment Sensation Gross Sensation WNL Muscle Tone Muscle Tone WNL Yes M6 PT-IP Treatment Start: 12/21/21 08:21 Freq: NEEDED Status: Active Protocol: Document 12/23/21 11:38 KS (Rec: 12/23/21 12:57 KS [id number]) Physical Therapy Treatment Education Education Provided Precautions,Safety M7 PT-IP Assessment and Plan Start: 12/21/21 08:21 Freq: NEEDED Status: Active Protocol: Document 12/23/21 11:38 KS (Rec: 12/23/21 12:57 KS [id number]) PT Summary Assessment and Plan Summary Impairments Pain,ROM,Strength,Balance,Bed Mobility,Transfers,Gait, Activity Tolerance Progress Towards Goals Progressing Toward Goals,Slow Progress due to Pain,Slow Progress due to Activity Tolerance Assessment Summary Pt required more assist today and showed less tolerance for activity. Max A for sit<>stand w/ verbal and tactile cues for hand placement and upright posture w/ FWW. Pt then ambulated ~10 ft extremely slowly w/ decreased stride and very minimal ground clearance using FWW Min A and frequent cues for FWW management. He was unable to tolerate further activity and transferred to BSC Mod A. Unable to progress pt to stairs. He will require SNF to improve strength and functional mobility. Goals Bed Mobility Goal Contact Guard Assistance Transfer Goal Standby Assistance,Front Wheeled Walker Gait Goal Standby Assistance,Front Wheel Walker Gait Distance 75 Other Goals -- up/down 2 steps with R rail and SPC vs [employer] Days to Meet Goals 3 Frequency of Treatment Frequency Of Treatment Twice a Day Treatment Plan Physical Therapy Treatment Plan Bed Mobility Training,Transfer Training,Gait Training, Therapeutic Exercise,Balance Retraining,Post Op Education, Discharge Planning,Hot or Cold Pack,Neuromuscular Re-ed Other Recommendations and Next Treatment stairs with spouse Focus Precautions Lumbar Precautions Log Roll,No Twisting,Limit Bending,Lifting Restriction of 10 lbs,Gait Belt above Incisional Area Other Precautions skin tear R forearm Recommendations To Nursing Amount of Assist Needed 1 Person Assist Discharge Recommendations PT Discharge Recommendations Home with Assistance,Home with / Assist Available Other Discharge Recommendations Pt likely to benefit from hospital bed and BSC. Spouse to inquire about rental. Transportation Needs at Discharge Private Vehicle
--- NOTE | 2021-12-23 12:15 | OT.IP.TRT ---
Current Diagnoses Other spondylosis with radiculopathy, lumbar region (12/20/21) Spinal stenosis, lumbar region with neurogenic claudication (12/20/21) Surgery Performed Operation Date: 12/20/21 07:45 Actual Procedures p L2-3, L3-4 TLIF w. posterior instrumentation -Robot(Not Applicable) - Claudine Ureña MD Occupational Therapy Treatment Note M2 OT-IP Current Condition Start: 12/21/21 12:38 Freq: Status: Active Protocol: Document 12/21/21 09:08 [facility] (Rec: 12/21/21 12:53 [facility] [id number]) Occupational Therapy Current Condition Current Condition Evaluation Date 12/21/21 Treatment Diagnosis S/p L2-3, L3-4 TLIF Diagnosis Onset Date 12/20/21 Post Operative Precautions Lumbar Precautions Log Roll,No Twisting,Limit Bending,Lifting Restriction of 10 lbs,Gait Belt above Incisional Area M3 OT- IP Subjective and Pain Start: 12/21/21 12:38 Freq: Status: Active Protocol: Document 12/23/21 11:50 [facility] (Rec: 12/23/21 14:04 [facility] [id number]) OT- Subjective Occupational Therapy Visit Type Type Treatment Note Visit Start Time 11:50 Visit Stop Time 12:15 Total Visit Minutes 25 Occupational Therapy Visit Comments Patient Comments Pt sitting on the BSC and able to take over for nursing aid. Patient/Caregiver Goals Pt wanting to go to skilled rehab. OT Pain Assessment Pain When Pain Assessed During Mobility Pain Present Pain Present Pain Reported Location Right Hip Intensity 5 Scale Used Numeric (0 - 10) M4 OT- IP ADL's Start: 12/21/21 12:38 Freq: Status: Active Protocol: Document 12/23/21 11:50 [facility] (Rec: 12/23/21 14:04 [facility] [id number]) OT ADL-Grooming General Evaluation Grooming Ability Standby Assistance Areas Needing Assistance Retrieving/Set-up of Grooming Items Comments OT Grooming Comments Pt able to do while seated and not able to stand today to complete grooming needs. M5 OT- IP IADL's Start: 12/21/21 12:38 Freq: Status: Active Protocol: Document 12/21/21 09:08 [facility] (Rec: 12/21/21 12:53 [facility] [id number]) OT-Instrumental Activities of Daily Living Home Safety Awareness Awareness of Need for Assistance at Home Good Awareness Ability to Problem Solve Emergency Able to Problem Solve Situations Home Safety Comments Pt's to assist pt for all his needs. Medication Management Medication Management Caregiver Administers Money Management Money Management Caregiver Provides Assistance Meal Preparation Meal Preparation Caregiver Provides Assist Leather Heel Breaster Leather Heel Breaster Caregiver Provides Assist M6 OT- IP Functional Cognition Start: 12/21/21 12:38 Freq: Status: Active Protocol: Document 12/23/21 11:50 [facility] (Rec: 12/23/21 14:04 [facility] [id number]) Cognitive Factors Limiting Selfcare Function Cognitive Comments Cognitive Assessment Comments Pt still needing cues for hand placement and safety for FWW. M7 OT- IP Mobility and Balance Start: 12/21/21 12:38 Freq: Status: Active Protocol: Document 12/23/21 11:50 [facility] (Rec: 12/23/21 14:04 [facility] [id number]) OT-Transfer Assessment Sit to and From Stand Sit to and from Stand Maximum Assistance Transfers Transfer Ability Moderate Assistance,2 Person Assistance Technique Transfer Destination Bed,Bedside Commode Transfer Technique Stand Step Pivot Devices Transfer Assistive Devices Gait Belt,Front Wheeled Walker Comments Mobility Comments Pt needign MAX AX 1 to stand to FWW and needing another person to assist to help get his hands up on the FWW. Once on his feet , pt moving very slowly and needing MODA X2 with FWW and assist to help lower down to the recliner. OT- Balance Assessment Sitting Balance and Reactions Static Sitting Balance Ability Good Dynamic Sitting Balance Ability Fair Standing Balance and Reactions Static Standing Balance Ability Poor M8 OT- IP Objective Assessments Start: 12/21/21 12:38 Freq: Status: Active Protocol: Document 12/21/21 09:08 [facility] (Rec: 12/21/21 12:53 [facility] [id number]) OT Gross Range of Motion Upper Extremity Range of Motion Assessment Right Impaired OT Strength Upper Extremity Strength Assessment Right Impaired OT-Muscle Tone Assessment Muscle Tone WNL Yes M9 OT- IP Assessment and Plan Start: 12/21/21 12:38 Freq: Status: Active Protocol: Document 12/23/21 11:50 [facility] (Rec: 12/23/21 14:04 [facility] [id number]) OT Summary Assessment and Plan Potential Rehabilitation Potential Good Analytic Complexity at Evaluation Low Summary OT Impairments Pain,Strength,Balance, Functional Mobility,Grooming, Dressing,Toileting,Bathing, Toilet Transfers,Shower Transfers,Activity Tolerance Progress Towards Goals Slow Progress due to Pain,Slow Progress due to Activity Tolerance Assessment Summary Pt having more difficulty to come to stand today and and now needing two person assist for transfers. Pt now current care too great for his to assist him and would be best to go to skilled rehab prior to going home. Goals Grooming Goal Independent Dressing Goal Independent Toileting Goal Minimal Assistance Bathing Goal Independent Toilet Transfer Goal Independent Shower Transfer Goal Independent Days to Meet Goals 20 Frequency of Treatment Frequency Of Treatment Once a Day Treatment Plan OT Treatment Plan ADL Training,Functional Cognition Training,Functional Mobility,Patient/Family Education,Discharge Planning Discharge Recommendations OT Discharge Recommendations SNF Rehab Transportation Needs at Discharge Wheelchair/Cabulance
[2021-12-23] MEDS: NEOMYCIN/POLYMYXIN/BACITRA UD OINT 1 EACH TOP (14:02)
--- NOTE | 2021-12-23 14:37 | PT.IPTN ---
Current Diagnoses Other spondylosis with radiculopathy, lumbar region (12/20/21) Spinal stenosis, lumbar region with neurogenic claudication (12/20/21) Surgery Performed Operation Date: 12/20/21 07:45 Actual Procedures p L2-3, L3-4 TLIF w. posterior instrumentation -Robot(Not Applicable) - Claudine Ureña MD Physical Therapy Treatment Note M2 PT-IP Current Condition Start: 12/21/21 08:21 Freq: NEEDED Status: Active Protocol: Document 12/21/21 09:44 AW (Rec: 12/21/21 11:44 AW [id number]) Physical Therapy Current Condition Current Condition Evaluation Date 12/21/21 Treatment Diagnosis s/p L2-3 L3-4 TLIF; difficulty in walking M3 PT-IP Subjective Start: 12/21/21 08:21 Freq: NEEDED Status: Active Protocol: Document 12/23/21 14:14 KS (Rec: 12/23/21 14:54 KS [id number]) Subjective Physical Therapy Visit Type Type Treatment Note Visit Start Time 14:14 Visit Stop Time 14:37 Total Visit Minutes 23 Physical Therapy Visit Comments Patient Comments Pt agreeable to work w/ therapy. Therapy Pain Assessment Pain When Pain Assessed During Mobility Pain Present Pain Present Pain Reported Location low back Intensity 10 Scale Used Numeric (0 - 10) Pain Behaviors Facial Grimacing,Guarding Pain Management Techniques Modification of Treatment,Re- positioning,Timing of Activity with Medications M4 PT-IP Mobility and Gait Start: 12/21/21 08:21 Freq: NEEDED Status: Active Protocol: Document 12/23/21 14:14 KS (Rec: 12/23/21 14:54 KS [id number]) PT-Transfer Assessment Sit to and From Stand Sit to and from Stand Maximum Assistance,1 Person Assistance,Use of Upper Extremities Equipment Transfer Assistive Device Gait Belt,Front Wheeled Walker Orthotic/Prosthetic Devices or Brace: No Transfers Transfer Destination Chair Transfer Technique Pt ambulated w/ FWW Transfer Ability Level of Assist Maximum Assistance,1 Person Assistance,Use of Upper Extremities Comments Mobility Comments Pt in chair upon arrival and reporting fatigue. Able to scoot EOC CGA. Max A for sit<> stand w/ FWW w/ encouragement. Pt stood ~1 min prior to initiating gait. He then took ~4 steps orwards and stated I can't do this and stepped backwards to chair c/o 10/10 pain. Mod A for slow descent w / verbal and tactile cues for hand placement. Pt agreed to LE exercises and completed 1x10 bilateral ankle pumps, quad sets, glute sets, and seated heel raises. He became very distracted and fatigued and required increased time as well as frequent verbal cues to continue exercises and stay on task. Pt left in chair w/ all needs in reach. Gait Assessment Gait Gait Assistance Required: Minimum Assistance,1 Person Assist Distance (Feet) 6 Able to Maintain Weight Bearing Status Yes During Gait Assistive Devices Assistive Device Gait Belt,Front Wheeled Walker Orthotic/Prosthetic Devices or Brace: No Gait Deviations General Gait Pattern Antalgic,Decreased Stride Length,Decreased Feet Clearance Factors Limiting Gait Function Factors Limiting Gait Function Decreased Activity Tolerance, Decreased Strength,Pain,Poor Safety Awareness Comments Gait Comments Pt only able to tolerate ~4 steps forwards and backwards this PM due to 10/10 reported pain. RN aware. Stair Climbing Assessment Comments Stair Climbing Comments Pt not safe to attempt stairs today due to weakness and quick approach to fatigue. PT-Balance Assessment Sitting Balance and Reactions Static Sitting Balance Ability Good Dynamic Sitting Balance Ability Good Standing Balance and Reactions Static Standing Balance Ability Good Dynamic Standing Balance Ability Fair Device Used FWW M5 PT-IP Objective Assessments Start: 12/21/21 08:21 Freq: NEEDED Status: Active Protocol: Document 12/21/21 09:44 AW (Rec: 12/21/21 11:56 AW [id number]) Orientation Orientation/Cognition Level of Alertness Alert Orientation Name,Day of Week,Place, Situation Language Function Ability No Deficits Noted Safety Awareness Understands Safety Issues Memory Description No Deficits Noted Gross Range of Motion Lower Extremity ROM Assessment Within Functional Limits Strength Lower Extremity Strength Assessment Bilaterally Impaired Hip 4/5 Knee 4+/5 Sensation Assessment Sensation Gross Sensation WNL Muscle Tone Muscle Tone WNL Yes M6 PT-IP Treatment Start: 12/21/21 08:21 Freq: NEEDED Status: Active Protocol: Document 12/23/21 14:14 KS (Rec: 12/23/21 14:54 KS [id number]) Physical Therapy Treatment Exercises Exercises Ankle Pumps,Gluteal Sets,Quad Sets Education Education Provided Precautions,Safety Other Treatments Other Treatment Performed Seated heel raises M7 PT-IP Assessment and Plan Start: 12/21/21 08:21 Freq: NEEDED Status: Active Protocol: Document 12/23/21 14:14 KS (Rec: 12/23/21 14:54 KS [id number]) PT Summary Assessment and Plan Summary Impairments Pain,ROM,Strength,Balance,Bed Mobility,Transfers,Gait, Activity Tolerance Progress Towards Goals Progressing Toward Goals,Slow Progress due to Pain,Slow Progress due to Activity Tolerance Assessment Summary Pt very limited by pain and weakness. Now requiring Max A for sit<>Stand and only tolerated very minimal ambulation distance due to high reported pain and increased time and cues w/ all tasks. He completed LE exercises to promote blood flow and strengthening however required frequent cues and redirection throughout. Pt unable to tolerate progressed gait distance and unsafe to attempt stairs. He will require SNF to improve functional mobility. Goals Bed Mobility Goal Contact Guard Assistance Transfer Goal Standby Assistance,Front Wheeled Walker Gait Goal Standby Assistance,Front Wheel Walker Gait Distance 75 Other Goals -- up/down 2 steps with R rail and SPC vs [facility] Days to Meet Goals 3 Frequency of Treatment Frequency Of Treatment Twice a Day Treatment Plan Physical Therapy Treatment Plan Bed Mobility Training,Transfer Training,Gait Training, Therapeutic Exercise,Balance Retraining,Post Op Education, Discharge Planning,Hot or Cold Pack,Neuromuscular Re-ed Other Recommendations and Next Treatment stairs with spouse Focus Precautions Lumbar Precautions Log Roll,No Twisting,Limit Bending,Lifting Restriction of 10 lbs,Gait Belt above Incisional Area Other Precautions skin tear R forearm Recommendations To Nursing Amount of Assist Needed 1 Person Assist Discharge Recommendations PT Discharge Recommendations Home with Assistance,Home with 24/7 Assist Available Other Discharge Recommendations Pt likely to benefit from hospital bed and BSC. Spouse to inquire about rental. Transportation Needs at Discharge Private Vehicle
--- NOTE | 2021-12-23 15:34 | PC.NURSE ---
Day shift; At approx 1500 this sign writer letterer or painter carefully removed taga derm dressing on patient's right arm using 5 each normal saline flushes. Used sterile gauze to gently pat dry the skin tear sites. Applied two 3x8 non adherent sterile gauze dressing medicated with neosporin per MARK Quiroga dressing instructions. Pt tolerated well. New dressing labeled and dated.
[2021-12-23 17:09] LABS: COVID19 -Nasal RAPID Negative (Negative)
[2021-12-23] MEDS: TACROLIMUS 0.5 MG CAPSULE PO (20:55)
[2021-12-24] MEDS: OXYCODONE IR 5 MG TABLET PO ×3 (00:24→10:59)
[2021-12-24 00:26] VITALS: BP 136/71; PULSE 87
[2021-12-24] MEDS: carvediloL 3.125 MG TABLET PO ×2 (00:26→09:15)
[2021-12-24 00:32] VITALS: BP 136/71; PULSE 87; RESP 18; O2SAT 94
[2021-12-24 00:34] VITALS: BP 136/71; PULSE 87; RESP 18; O2SAT 94
[2021-12-24 05:00] VITALS: BP 155/76; PULSE 81; RESP 16; TEMP 36.2; O2SAT 98
[2021-12-24] MEDS: LEVOTHYROXINE 150 MCG TABLET PO (05:28)
[2021-12-24 07:35] VITALS: O2SAT 99
--- NOTE | 2021-12-24 08:11 | CM.DPNOTE ---
DC Note As of yesterday 12.23.21; patient and family decided instead of returning home, that patient would be best served at SNF setting for recovery from his spinal surgery Contacted February at [facility] [address] and she accepted patient for today 12.24.21 SNF order and ppk completed by MARK Quiroga, SUMI completed, will plan to fax all this morning for an 1100 p/u to [facility] [address], patient and family agreeable to plan C19 PCR updated last night JW
--- NOTE | 2021-12-24 08:25 | OT.IP.TRT ---
Current Diagnoses Other spondylosis with radiculopathy, lumbar region (12/20/21) Spinal stenosis, lumbar region with neurogenic claudication (12/20/21) Surgery Performed Operation Date: 12/20/21 07:45 Actual Procedures p L2-3, L3-4 TLIF w. posterior instrumentation -Robot(Not Applicable) - Claudine Ureña MD Occupational Therapy Treatment Note M2 OT-IP Current Condition Start: 12/21/21 12:38 Freq: Status: Discharge Protocol: Document 12/21/21 09:08 [facility] (Rec: 12/21/21 12:53 [facility] [id number]) Occupational Therapy Current Condition Current Condition Evaluation Date 12/21/21 Treatment Diagnosis S/p L2-3, L3-4 TLIF Diagnosis Onset Date 12/20/21 Post Operative Precautions Lumbar Precautions Log Roll,No Twisting,Limit Bending,Lifting Restriction of 10 lbs,Gait Belt above Incisional Area M3 OT- IP Subjective and Pain Start: 12/21/21 12:38 Freq: Status: Discharge Protocol: Document 12/24/21 08:25 [facility] (Rec: 12/24/21 13:13 [facility] [id number]) OT- Subjective Occupational Therapy Visit Type Type Treatment Note Visit Start Time 08:25 Visit Stop Time 09:03 Total Visit Minutes 38 Occupational Therapy Visit Comments Patient Comments Pt sitting at ths edge of the bed and wanting to get to the recliner. Patient/Caregiver Goals Pt wanting to go to skilled rehab. OT Pain Assessment Pain When Pain Assessed During Mobility Pain Present Pain Present Pain Reported M4 OT- IP ADL's Start: 12/21/21 12:38 Freq: Status: Discharge Protocol: Document 12/24/21 08:25 [facility] (Rec: 12/24/21 13:13 [facility] [id number]) OT ADL-Grooming General Evaluation Grooming Ability Standby Assistance Areas Needing Assistance Retrieving/Set-up of Grooming Items Comments OT Grooming Comments Pt able to do while seated and not able to stand today to complete grooming needs. OT ADL-Dressing Comments OT Dressing Comments Pt able to slidhis feet into his slippers. M5 OT- IP IADL's Start: 12/21/21 12:38 Freq: Status: Discharge Protocol: Document 12/21/21 09:08 [facility] (Rec: 12/21/21 12:53 [facility] [id number]) OT-Instrumental Activities of Daily Living Home Safety Awareness Awareness of Need for Assistance at Home Good Awareness Ability to Problem Solve Emergency Able to Problem Solve Situations Home Safety Comments Pt's to assist pt for all his needs. Medication Management Medication Management Caregiver Administers Money Management Money Management Caregiver Provides Assistance Meal Preparation Meal Preparation Caregiver Provides Assist Gasoline Pump Installer Gasoline Pump Installer Caregiver Provides Assist M6 OT- IP Functional Cognition Start: 12/21/21 12:38 Freq: Status: Discharge Protocol: Document 12/23/21 11:50 [facility] (Rec: 12/23/21 14:04 [facility] [id number]) Cognitive Factors Limiting Selfcare Function Cognitive Comments Cognitive Assessment Comments Pt still needgn cues for hand placement and safety for FWW. M7 OT- IP Mobility and Balance Start: 12/21/21 12:38 Freq: Status: Discharge Protocol: Document 12/24/21 08:25 [facility] (Rec: 12/24/21 13:13 [facility] [id number]) OT-Transfer Assessment Sit to and From Stand Sit to and from Stand Maximum Assistance Transfers Transfer Ability Moderate Assistance,1 Person Assistance Technique Transfer Destination Bed,Chair Devices Transfer Assistive Devices Gait Belt,Front Wheeled Walker Comments Mobility Comments MAX A x 1 to stand to FWW and MODA to guide the FWW andn for his balance and al asist to heopl lower himself to the wc. OT- Balance Assessment Sitting Balance and Reactions Static Sitting Balance Ability Good Dynamic Sitting Balance Ability Fair Standing Balance and Reactions Static Standing Balance Ability Poor M8 OT- IP Objective Assessments Start: 12/21/21 12:38 Freq: Status: Discharge Protocol: Document 12/21/21 09:08 [facility] (Rec: 12/21/21 12:53 [facility] [id number]) OT Gross Range of Motion Upper Extremity Range of Motion Assessment Right Impaired OT Strength Upper Extremity Strength Assessment Right Impaired OT-Muscle Tone Assessment Muscle Tone WNL Yes M9 OT- IP Assessment and Plan Start: 12/21/21 12:38 Freq: Status: Discharge Protocol: Document 12/24/21 08:25 [facility] (Rec: 12/24/21 13:13 [facility] [id number]) OT Summary Assessment and Plan Potential Rehabilitation Potential Good Analytic Complexity at Evaluation Low Summary OT Impairments Pain,Strength,Balance, Functional Mobility,Grooming, Dressing,Toileting,Bathing, Toilet Transfers,Shower Transfers,Activity Tolerance Progress Towards Goals Slow Progress due to Pain,Slow Progress due to Activity Tolerance Assessment Summary Pt still needing MAXA x1 to stand and pain seems to limit his mobility needs. Able to go over with pt what to expect in skilled rehab. Pt still needing vc to remember his back precautions. Goals Grooming Goal Independent Dressing Goal Independent Toileting Goal Minimal Assistance Bathing Goal Independent Toilet Transfer Goal Independent Shower Transfer Goal Independent Days to Meet Goals 20 Frequency of Treatment Frequency Of Treatment Once a Day Treatment Plan OT Treatment Plan ADL Training,Functional Cognition Training,Functional Mobility,Patient/Family Education,Discharge Planning Discharge Recommendations OT Discharge Recommendations SNF Rehab Transportation Needs at Discharge Wheelchair/Cabulance
[2021-12-24 09:00] VITALS: BP 118/69; PULSE 81; RESP 18; TEMP 36.6; O2SAT 97
[2021-12-24] MEDS: TACROLIMUS 0.5 MG CAPSULE 1 MG PO (09:15)
[2021-12-24] MEDS: SITAGLIPTIN 50 MG TABLET PO (09:16)
[2021-12-24] MEDS: ACETAMINOPHEN 325 MG TABLET 975 MG PO (09:16)
[2021-12-24] MEDS: DOCUSATE 100 MG CAPSULE PO (09:16)
[2021-12-24] MEDS: predniSONE 5 MG TABLET PO (09:16)
[2021-12-24] MEDS: SODIUM CHLORIDE 0.9% FLUSH 10 ML IV (09:18)
--- NOTE | 2021-12-24 11:43 | PC.NURSE ---
1110 - Assisting patient to prepare for discharge. Pt c/o increasing pain with activity. PO medication provided. Two person assist to WC. D/C packet given to transport. Encouraged pt to bring anti-rejection meds to SNF.
== END 2021-12-24 11:12 | DRG 454 ==
LOC: OR 05:51 → AC 05:52
PROVIDERS: Physician Assistant Medical; Admitting Provider Orthopaedic Surgery Orthopaedic Surgery of the Spine; PCP Internal Medicine; Referring Provider Orthopaedic Surgery Orthopaedic Surgery of the Spine; Visit Provider Orthopaedic Surgery Orthopaedic Surgery of the Spine
PROC: 0SG10AJ Fusion of 2 or more Lumbar Vertebral Joints with Interbody Fusion Device, Posterior Approach, Anterior Column, Open Approach (ICD-10-PCS; principal; 2021-12-20 07:45)
DX: M48.062 Spinal stenosis, lumbar region with neurogenic claudication (principal); Z94.2 Lung transplant status; M47.26 Other spondylosis with radiculopathy, lumbar region; M43.16 Spondylolisthesis, lumbar region; S51.811A Laceration without foreign body of right forearm, initial encounter; E03.9 Hypothyroidism, unspecified; I10 Essential (primary) hypertension; E11.9 Type 2 diabetes mellitus without complications; X58.XXXA Exposure to other specified factors, initial encounter; Z79.84 Long term (current) use of oral hypoglycemic drugs; Z87.891 Personal history of nicotine dependence; Z20.822 Contact with and (suspected) exposure to COVID-19; M48.061 Spinal stenosis, lumbar region without neurogenic claudication; M48.07 Spinal stenosis, lumbosacral region; M47.816 Spondylosis without myelopathy or radiculopathy, lumbar region; M47.817 Spondylosis without myelopathy or radiculopathy, lumbosacral region; K57.90 Diverticulosis of intestine, part unspecified, without perforation or abscess without bleeding; Z90.49 Acquired absence of other specified parts of digestive tract
CPT/HCPCS: 36415; 72100; 72131; 76000; 82962; 85014; 85018; 87635; 97110; 97116; 97162; 97165; 97530; 97535; C9803; C1831; C9290; J0171; J0330; J0690; J1100; J1170; J2405; J2704; J3010; J7507

== ENCOUNTER 2021-12-26 10:10 | Observation (INO) | payer MEDICARE, SELFPAY ==
[2021-12-20 21:26] VITALS: BMI 27.3
[2021-12-26] VITALS (11 sets, daily range): BP systolic 103–162; BP diastolic 49–76; PULSE 81–91; RESP 15–21; TEMP 36.4–36.8; O2SAT 95–99; BMI 27.4
--- NOTE | 2021-12-26 10:12 | ED.ABDPAIN ---
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 He had a lumbar surgery with Dr. Ureña a few days ago for lumbar spinal stenosis with neurologic claudication. He has been on pain medications but states that he has been taking stool softeners daily. He denies any runny nose or sore throat. He has no chest pain or shortness of breath. He denies any fever or chills. Related Data Home Medications Medication Instructions Recorded Confirmed azithromycin 500 mg tablet 500 mg PO DIRECTED 09/18/20 12/26/21 carvedilol 3.125 mg tablet 3.125 mg PO BID 09/18/20 12/26/21 itraconazole 100 mg capsule 100 mg PO BID 09/18/20 12/26/21 levothyroxine 137 mcg tablet 150 mcg PO QAM 09/18/20 12/26/21 prednisone 5 mg tablet 5 mg PO DAILY 09/18/20 12/26/21 sitagliptin 50 mg tablet (Januvia) 50 mg PO DAILY 09/18/20 12/26/21 sulfamethoxazole 800 0.5 tab PO DIRECTED 09/18/20 12/26/21 mg-trimethoprim 160 mg tablet tacrolimus 0.5 mg capsule, 0.5 mg PO QPM 09/18/20 12/26/21 immediate-release tacrolimus 1 mg capsule, 1 mg PO QAM 09/18/20 12/26/21 immediate-release valganciclovir 450 mg tablet 450 mg PO DAILY 09/18/20 12/26/21 acetaminophen 500 mg capsule 1,000 mg PO TID 12/15/21 12/26/21 Previous Rx's Medication Instructions Recorded docusate sodium 100 mg capsule 100 mg PO BID #20 cap 12/23/21 hydroxyzine pamoate 25 mg capsule 25 mg PO Q4HR PRN #30 cap 12/23/21 oxycodone 10 mg tablet 10 mg PO Q4H PRN #30 tab 12/23/21 oxycodone 5 mg tablet 5 mg PO Q4H PRN #60 tab 12/23/21 Allergies Allergy/AdvReac Type Severity Reaction Status Date / Time No Known Drug Allergies Allergy Verified 12/26/21 10:19 Review of Systems Review of Systems Narrative: GENERAL: Denies chills, fatigue, malaise, fever, sweats. HEENT: Denies sinus pain, ear pain, sore throat, difficulty swallowing, dizziness. RESPIRATORY: Denies dyspnea, cough, wheezing, hemoptysis, sputum. CARDIOVASCULAR: Denies chest pain, palpitations, orthopnea, edema, GASTROINTESTINAL: See HPI : Denies dysuria, frequency, incontinence, hematuria, urinary retention. MUSCULOSKELETAL: denies weakness, joint pain, or bony pain SKIN: Denies rash, skin lesions, or other NEUROLOGIC: Denies weakness, headache, numbness, change in speech, confusion, seizures, incoordination. PSYCHIATRIC: No concerning psychosocial issues. 12 point review of systems is negative except for those stated above Patient History Medical History Anemia Coronary artery disease Diabetes Hearing impaired Hyperlipidemia Hypertension Hypothyroid IPF (idiopathic pulmonary fibrosis) Tubular adenoma of colon Surgical History H/O lung transplant (2009) Hx of bilateral cataract extraction Hx of cholecystectomy Family History Father Patient denies significant medical history Mother Patient denies significant medical history Social History marital status: household members: spouse Smoking Status: Former smoker alcohol intake: current Exam Narrative Exam Narrative: GENERAL: [81] year old patient appears stated age. Well-developed patient, in mild distress. HEAD: Atraumatic. Normocephalic. EYES: Pupils equal round and reactive. Extraocular motions intact. No scleral icterus. No injection or drainage. ENT: Nose without bleeding, purulent drainage. Throat without erythema, tonsillar hypertrophy or exudate. Airway patent. NECK: Trachea midline. Non tender CARDIOVASCULAR: Regular rate and rhythm without murmurs, gallops, or rubs. RESPIRATORY: Clear to auscultation. Breath sounds equal bilaterally. No wheezes, rales, or rhonchi. GASTROINTESTINAL: Abdomen soft, mild distension with bowel sounds present although decreased EXTREMITIES: No edema or joint tenderness. BACK: Nontender without deformity or crepitance. No flank tenderness. NEURO: AOx3. SKIN: No rash or erythema of visible areas Initial Vital Signs Initial Vital Signs: Vital Signs Temperature 97.5 F L 12/26/21 10:12 Pulse Rate 88 12/26/21 10:12 Respiratory Rate 18 12/26/21 10:12 Blood Pressure 146/76 H 12/26/21 10:12 Pulse Oximetry 96 12/26/21 10:12 Course Orders Ordered: ED Orders 12/26/21 10:13 EKG-12 Lead Stat 12/26/21 10:14 XR abdomen min 2V Stat 12/26/21 11:10 Complete Blood Count AUTO DIFF Stat Comprehensive Metabolic Panel Stat Lipase Stat 12/26/21 11:15 COVID19 -Nasal RAPID/Pre-Proc Stat 12/26/21 11:37 CT abdomen pelvis w con Stat 12/26/21 12:43 Urine Microscopic Stat Acetaminophen (Acetaminophen 325 Mg Tablet) 975 mg PO Q8HR HARI Azithromycin (Azithromycin 250 Mg Tablet) 500 mg PO MoWeFr@0900 [facility] Last Admin: 12/26/21 18:31 Dose: 500 mg Documented by: PAULINE Bisacodyl (Bisacodyl 10 Mg Supp) 10 mg NV DAILY PRN PRN Reason: Constipation Last Admin: 12/26/21 17:22 Dose: 10 mg Documented by: PAULINE Carvedilol (Carvedilol 3.125 Mg Tablet) 3.125 mg PO BID [facility] Docusate Sodium (Docusate 100 Mg Capsule) 100 mg PO BID [facility] Enoxaparin Sodium (Enoxaparin 40 Mg/0.4 Ml Syringe) 40 mg SUBCUT DAILY [facility] Gabapentin (Gabapentin 300 Mg Capsule) 300 mg PO Q12HR [facility] Sodium Chloride (Normal Saline 0.9%) 1,000 mls @ 75 mls/hr IV CONT HARI Last Admin: 12/26/21 17:20 Dose: 150 mls/hr Documented by: Infusion: 12/26/21 17:20 Dose: 150 mls/hr Documented by: Infusion: 12/26/21 15:00 Dose: 150 mls/hr Documented by: Admin: 12/26/21 11:14 Dose: 150 mls/hr Documented by: ABDULLAHI Ceftriaxone Sodium 2,000 mg/ (Sodium Chloride) 100 mls @ 200 mls/hr IV Q24H [facility] Last Admin: 12/26/21 18:26 Dose: 200 mls/hr Documented by: PAULINE Metronidazole (Flagyl) 500 mg in 100 mls @ 100 mls/hr IV Q8H [facility] Last Admin: 12/26/21 17:21 Dose: 100 mls/hr Documented by: PAULINE Levothyroxine Sodium (Levothyroxine 150 Mcg Tablet) 150 mcg PO 0600 [facility] Naloxone HCl (Naloxone 0.4 Mg/Ml Vial) 0.2 mg IV Q2MIN PRN PRN Reason: Opiate Reversal Itraconazole 100 Mg (Capsule) 100 mg PO BID [facility] Valganciclovir 450 (Mg Tablet) 450 mg PO DAILY [facility] Ondansetron HCl (Ondansetron 4 Mg/2 Ml Inj) 4 mg IV Q4HR PRN PRN Reason: Nausea And Vomiting Prednisone (Prednisone 5 Mg Tablet) 5 mg PO DAILY [facility] Tacrolimus (Tacrolimus 0.5 Mg Capsule) 1 mg PO DAILY [facility] Last Admin: 12/26/21 18:31 Dose: 0.5 mg Documented by: PAULINE Tacrolimus (Tacrolimus 0.5 Mg Capsule) 0.5 mg PO QPM [facility] Tramadol HCl (Tramadol 50 Mg Tablet) 50 mg PO Q4H PRN PRN Reason: Pain, Moderate (4-6) Trimethoprim/Sulfamethoxazole (Trimeth/Sulfa 160/800 (Ds) Tablet) 0.5 tab PO MoWeFr@0900 [facility] Last Admin: 12/26/21 18:31 Dose: 0.5 tab Documented by: PAULINE Discontinued Medications Bisacodyl (Bisacodyl 5 Mg Tablet) 5 mg PO NOW ONE Stop: 12/26/21 16:58 Last Admin: 12/26/21 17:49 Dose: Not Given Documented by: PAULINE Ondansetron HCl (Ondansetron 4 Mg/2 Ml Inj) 4 mg IV NOW ONE Stop: 12/26/21 10:14 Last Admin: 12/26/21 11:14 Dose: 4 mg Documented by: ABDULLAHI Ondansetron HCl (Ondansetron 4 Mg/2 Ml Inj) 4 mg IV NOW ONE Stop: 12/26/21 12:50 Last Admin: 12/26/21 13:04 Dose: 4 mg Documented by: BENTON Pantoprazole Sodium (Pantoprazole 40 Mg Vial) 40 mg IV NOW ONE Stop: 12/26/21 12:50 Last Admin: 12/26/21 13:04 Dose: 40 mg Documented by: BENTON Consultations Consultation #1: Discussed with General surgery or early after completion x-ray, recommend CT, hold off on NG for now Time: 11:30 Vital Signs Vital signs: Vital Signs - 8 hr 12/26/21 11:07 12/26/21 11:30 12/26/21 11:31 Pulse Rate 86 85 86 Respiratory Rate 16 21 18 Blood Pressure 162/74 H Pulse Oximetry 97 96 97 12/26/21 12:00 12/26/21 13:00 12/26/21 14:15 Pulse Rate 85 88 85 Respiratory Rate 17 19 15 Blood Pressure 154/72 H 155/74 H 125/58 L Pulse Oximetry 96 95 96 MDM - Abdominal Pain Lab Data Result diagrams: 12/26/21 11:10 12/26/21 11:10 Labs: Lab Results 12/26/21 12/26/21 12/26/21 Range/Units 11:10 11:10 11:15 WBC 9.5 (4.5-11.0) X10^3/uL RBC 2.61 L (4.5-5.9) X10^6/uL Hgb 8.8 L (13.5-17.5) g/dL Hct 26.2 L (41-53) % MCV 100.2 H (80-100) fL MCH 33.9 (26-34) PG MCHC 33.8 (30-36) % RDW 14.2 (11.6-14.8) % Plt Count 176 (150-400) X10^3/uL Neut % (Auto) 59.6 (50-75) % Lymph % (Auto) 17.4 L (25-40) % [place] % (Auto) 22.3 H (3-14) % Eos % (Auto) 0.0 L (2-4) % Baso % (Auto) 0.7 (0-2) % Neut # (Auto) 5700 (5043-3250) /uL Lymph # (Auto) 1700 (4944-8364) /uL [place] # (Auto) 2100 H (0-900) /uL Eos # (Auto) 0 (0-450) /uL Baso # (Auto) 100 (0-100) /uL Sodium 131 L (137-145) mmol/L Potassium 4.3 (3.4-5.1) mmol/L Chloride 96 L (98-107) mmol/L Carbon Dioxide 30 (22-32) mmol/L BUN 51 H (9-20) mg/dL Creatinine 1.64 H (0.66-1.25) mg/dL Estimated GFR 41 L (>60) mL/min BUN/Creatinine Ratio 31.1 H (6-22) Glucose 165 H (80-110) mg/dL Calcium 8.7 (8.4-10.2) mg/dL Total Bilirubin 0.7 (0.2-1.3) mg/dL AST 35 (17-59) IU/L ALT 13 (<50) IU/L Alkaline Phosphatase 66 (38-126) U/L Total Protein 5.8 L (6.3-8.2) g/dL Albumin 3.1 L (3.5-5.0) g/dL Globulin 2.7 (1.7-4.1) g/dL Albumin/Globulin Ratio 1.1 (1.0-2.8) Lipase 28 (23-300) U/L Urine RBC (0-5/HPF) Urine WBC (0-5/HPF) Ur Squamous Epith Cells (0-5/HPF) Amorphous Sediment Urine Bacteria (None) Ur Culture Indicated? SARS-CoV-2 (PCR) Negative (Negative) 12/26/21 Range/Units 12:43 WBC (4.5-11.0) X10^3/uL RBC (4.5-5.9) X10^6/uL Hgb (13.5-17.5) g/dL Hct (41-53) % MCV (80-100) fL MCH (26-34) PG MCHC (30-36) % RDW (11.6-14.8) % Plt Count (150-400) X10^3/uL Neut % (Auto) (50-75) % Lymph % (Auto) (25-40) % [place] % (Auto) (3-14) % Eos % (Auto) (2-4) % Baso % (Auto) (0-2) % Neut # (Auto) (5968-1432) /uL Lymph # (Auto) (1761-1703) /uL [place] # (Auto) (0-900) /uL Eos # (Auto) (0-450) /uL Baso # (Auto) (0-100) /uL Sodium (137-145) mmol/L Potassium (3.4-5.1) mmol/L Chloride (98-107) mmol/L Carbon Dioxide (22-32) mmol/L BUN (9-20) mg/dL Creatinine (0.66-1.25) mg/dL Estimated GFR (>60) mL/min BUN/Creatinine Ratio (6-22) Glucose (80-110) mg/dL Calcium (8.4-10.2) mg/dL Total Bilirubin (0.2-1.3) mg/dL AST (17-59) IU/L ALT (<50) IU/L Alkaline Phosphatase (38-126) U/L Total Protein (6.3-8.2) g/dL Albumin (3.5-5.0) g/dL Globulin (1.7-4.1) g/dL Albumin/Globulin Ratio (1.0-2.8) Lipase (23-300) U/L Urine RBC 0-1/hpf (0-5/HPF) Urine WBC None seen (0-5/HPF) Ur Squamous Epith Cells 0-1 /hpf (0-5/HPF) Amorphous Sediment 1+ Urine Bacteria None seen (None) Ur Culture Indicated? Cult not indicated SARS-CoV-2 (PCR) (Negative) Point of care testing: Urine Dip Bedside Urine Glucose Negative Bedside Urine Bilirubin - Negative Bedside Urine Ketone - Negative Urine Specific [place] 1.015 Bedside Urine Occult Blood - Negative Bedside Urine pH 6.0 Bedside Urine Protein + 30 Bedside Urine Urobilinogen - Negative Bedside Urine Nitrite - Negative Bedside Urine Leukocytes - Negative Esterase Imaging Data CT scan - abdomen/pelvis: Radiologist's Impression: Launch?[address] [address] [address] Scan Report Signed Patient: Darryl Jacobs MR#: [id number] : 1940 Acct:[id number] Age/Sex: 81 / M Date of Service: 12/26/21 Loc: ED Accession Number: [id number] ?? Procedure: CT abdomen pelvis w con Ordering Provider: Phillip Foreman D.O. PROCEDURE:? CT ABDOMEN PELVIS W CON ? INDICATIONS:? bowel obstruction ? TECHNIQUE:? After the administration of intravenous contrast, axial sections acquired from the lung bases to the pubic symphysis.? Coronal and sagittal reformats were performed.? For radiation dose reduction, the following was used:? automated exposure control, adjustment of mA and/or kV according to patient size.? ? COMPARISON:? [facility], CT, CT ANGIO CHEST PE PROTOCOL, 09/17/2021, 0:21.? [facility], CT, CT LUMBAR SPINE WO CON, 12/19/2021, 14:04. ? FINDINGS:? Image quality:? Excellent.? ? Lung bases:? Persistent but greatly improved patchy ill-defined ground-glass opacities involving the bilateral lower lobes.. Heart:? Heart size is enlarged.? Atherosclerotic calcifications are present.? No pericardial effusion.? Small hiatal hernia.? Diffuse circumferential wall thickening of the distal esophagus and gastroesophageal junction. ? ABDOMEN: Liver:? Unremarkable.? ? Gallbladder:? Status post cholecystectomy. Biliary ducts:? Unremarkable.? ? Pancreas:? Unremarkable.? ? No peripancreatic inflammation. Spleen:? Unremarkable.? ? Adrenal Glands:? Unremarkable.? ? Kidneys and Ureters: Kidneys are symmetric in size and enhancement, and there is no obstructive uropathy.? No perinephric inflammatory changes. Ureters are normal in course and caliber.? Redemonstration of partially exophytic inferior pole right renal hypodensity with associated peripheral calcifications.? ? Stomach and Bowel:? Stomach is nondistended.? Multiple loops of fluid-filled small bowel without wall thickening.? Mildly distended small bowel loops noted in the left mid and upper abdomen are visualized measuring up to 3.2 cm in maximum diameter.? No wall thickening.? No surrounding inflammation.? There is gradual, narrowing/tapering within the left lower quadrant.? No definite transition point.? No focal mass or adenopathy.? There are several loops of fluid-filled bowel noted in the right mid and upper abdomen without significant dilatation or wall thickening.? Moderate amount of fecal material noted throughout the colon.? Scattered colonic diverticulosis.? There is suggestion of minimal inflammatory stranding involving the sigmoid colon most pronounced distally, adjacent to the urinary bladder. Peritoneum:? No abnormal intraperitoneal fluid.? No free air.? ? Ventral Wall: ? No hernias.? Abdominal Nodes:? No retroperitoneal or mesenteric adenopathy by size criteria.? Vessels:? Scattered atherosclerotic calcifications of the abdominal aorta and iliac vessels without aneurysmal dilatation.? The inferior vena cava appears patent..? ? PELVIS: Pelvic Organs:? Prostate is prominent in size measuring 5.7 x 4.2 cm in axial cross-sectional dimension.? ? Bladder:? Minimal circumferential urinary bladder wall thickening likely related to incomplete distension.? No significant surrounding perivesicular inflammation.? ? Pelvic Nodes: No pathologically enlarged lymph nodes.? Miscellaneous:? Tiny fat containing umbilical hernia without acute inflammation.. ? ? ? Bones:? There are interval postsurgical changes from posterior fusion of L2 through L4 with bilateral pedicular screws and paraspinal sharee fixation.? There has also been left sided hemilaminectomies of these levels.? No evidence for surrounding fluid collections or abnormal enhancement.? Overlying skin heather present.? Stable chronic appearing compression fracture deformity at L1. ? ? IMPRESSION:? ? 1. Multiple loops of fluid-filled small bowel without associated wall thickening seen within the left mid and upper abdomen as well as the right mid and upper abdomen.? Mild dilatation of left-sided small bowel loops measuring up to 3.2 cm.? There is gradual tapering of small bowel caliber without evidence of a definite transition point.? Findings may represent postoperative ileus although partial small bowel obstruction not completely excluded.? Recommend continued clinical surveillance with follow-up imaging as needed. ? 2. Scattered colonic diverticulosis with minimal sigmoid colon peridiverticular stranding.? Findings may represent early/mild acute diverticulitis.? No evidence for perforation or abscess formation.? There is mild circumferential wall thickening of this segment.? Recommend outpatient screening colonoscopy after resolution of acute findings to exclude possible underlying neoplastic process. ? 3. Status post interval posterior spinal fusion and left hemilaminectomies from L2 through L4.? No abnormal fluid collection seen.? No hardware complication identified. ? 4. Stable appearance of chronic anterior compression fracture of L1. ? 5. Circumferential wall thickening of the distal esophagus and gastroesophageal junction as well as small hiatal hernia.? Findings may be related to sequela of reflux esophagitis. ? 6. Mild circumferential wall thickening of the urinary bladder likely related to incomplete distension versus sequela of chronic urinary bladder outlet obstruction given prominent size of the prostate gland. ? 7. Small fat containing umbilical hernia without acute inflammation. ? 8. Atherosclerosis.? Cardiomegaly. ? 9. Persistent but greatly improved appearance of patchy ill-defined ground-glass opacities of the bilateral lower lobes.? Recommend follow-up CT chest in 3-6 months to document resolution.? ? 10. Redemonstration of right inferior pole renal cyst.? ? Dictated by: London Bernstein M.D. on 12/26/2021 at 13:18 ? ? Approved by: London Bernstein M.D. on 12/26/2021 at 13:44 ? Discharge Plan Departure Patient Disposition: Admitted as Observation Clinical Impression: Partial obstruction of small intestine Admit Date/Time: 12/26/21 14:21 Admit Provider: Alli Ghosh
--- NOTE | 2021-12-26 10:14 | DI.RAD.S_ITS ---
PROCEDURE: XR ABDOMEN MIN 2V INDICATIONS: No BM, significant vomiting TECHNIQUE: 2 views of the abdomen were acquired. COMPARISON: [facility], CT, CT LUMBAR SPINE WO CON, 12/19/2021, 14:04. [facility], CR, XR ABDOMEN 1V, 09/24/2021, 10:13. FINDINGS: Surgical changes and devices: Lower thoracic spine hardware and lumbar hardware can be seen. Numerous abdominal clips are seen, including cholecystectomy clips. Bowel: No pneumoperitoneum. Dilated loops of small bowel are seen that measure up to 3.6 cm. Differential air-fluid levels are seen. No heron intraperitoneal gas can be seen, although the right hemidiaphragm is not well seen. Soft tissues: No masses; visualized solid organ contours appear normal in size. No suspicious abdominal calcifications. Bones: No suspicious bony abnormalities. Age-appropriate bony degenerative changes are seen. L1 fracture can be seen, which is better demonstrated by CT. IMPRESSION: There is moderate suspicion for small bowel obstruction. Please consider a follow-up CT of the abdomen and pelvis for further evaluation. If oral contrast is given, please consider a long dwell time. Postoperative and degenerative changes are seen. Dictated by: Yazan Mcallister M.D. on 12/26/2021 at 10:29 Approved by: Yazan Mcallister M.D. on 12/26/2021 at 10:31
[2021-12-26] MEDS: ONDANSETRON 4 MG/2 ML INJ IV ×2 (11:14→13:04)
[2021-12-26] MEDS: SODIUM CHLORIDE 0.9% 1,000 ML 150 ML IV ×2 (11:14→17:20)
[2021-12-26 11:19] LABS: Add Manual Diff / Slide Review NO; Basophils Absolute Auto 100 /uL (0-100); Basophils Percent Auto 0.7 % (0-2); Eosinophils Absolute Auto 0 /uL (0-450); Hematocrit 26.2 % (41-53); Hemoglobin 8.8 g/dL (13.5-17.5); Lymphocytes Absolute Auto 1700 /uL (1100-4500); Lymphocytes Percent Auto 17.4 % (25-40); Mean Corpuscular HGB Conc 33.8 % (30-36); Mean Corpuscular Hemoglobin 33.9 PG (26-34); Mean Corpuscular Volume 100.2 fL (80-100); Monocytes Absolute Auto 2100 /uL (0-900); Monocytes Percent Auto 22.3 % (3-14); Neutrophils Absolute Auto 5700 /uL (1500-7000); Neutrophils Percent Auto 59.6 % (50-75); Platelet Count 176 X10^3/uL (150-400); Red Blood Cell Count 2.61 X10^6/uL (4.5-5.9); Red Cell Distribution Width 14.2 % (11.6-14.8); White Blood Cell Count 9.5 X10^3/uL (4.5-11.0)
[2021-12-26 11:30] LABS: Alanine Aminotransferase 13 IU/L (<50); Albumin 3.1 g/dL (3.5-5.0); Albumin Globulin Ratio 1.1 (1.0-2.8); Alkaline Phosphatase 66 U/L (38-126); Aspartate Aminotransferase 35 IU/L (17-59); BUN Creatinine Ratio 31.1 (6-22); Bilirubin Total 0.7 mg/dL (0.2-1.3); Blood Urea Nitrogen 51 mg/dL (9-20); Calcium 8.7 mg/dL (8.4-10.2); Carbon Dioxide 30 mmol/L (22-32); Chloride 96 mmol/L (98-107); Estimated Glomerular Filt Rate 41 mL/min (>60); Globulin 2.7 g/dL (1.7-4.1); Glucose 165 mg/dL (80-110); HEMOLYSIS < 15 (0-50); Lipase 28 U/L (23-300); Potassium 4.3 mmol/L (3.4-5.1); Sodium 131 mmol/L (137-145); Total Protein 5.8 g/dL (6.3-8.2)
--- NOTE | 2021-12-26 11:37 | DI.CT.S_ITS ---
PROCEDURE: CT ABDOMEN PELVIS W CON INDICATIONS: bowel obstruction TECHNIQUE: After the administration of intravenous contrast, axial sections acquired from the lung bases to the pubic symphysis. Coronal and sagittal reformats were performed. For radiation dose reduction, the following was used: automated exposure control, adjustment of mA and/or kV according to patient size. COMPARISON: [facility], CT, CT ANGIO CHEST PE PROTOCOL, 09/17/2021, 0:21. [facility], CT, CT LUMBAR SPINE WO CON, 12/19/2021, 14:04. FINDINGS: Image quality: Excellent. Lung bases: Persistent but greatly improved patchy ill-defined ground-glass opacities involving the bilateral lower lobes.. Heart: Heart size is enlarged. Atherosclerotic calcifications are present. No pericardial effusion. Small hiatal hernia. Diffuse circumferential wall thickening of the distal esophagus and gastroesophageal junction. ABDOMEN: Liver: Unremarkable. Gallbladder: Status post cholecystectomy. Biliary ducts: Unremarkable. Pancreas: Unremarkable. No peripancreatic inflammation. Spleen: Unremarkable. Adrenal Glands: Unremarkable. Kidneys and Ureters: Kidneys are symmetric in size and enhancement, and there is no obstructive uropathy. No perinephric inflammatory changes. Ureters are normal in course and caliber. Redemonstration of partially exophytic inferior pole right renal hypodensity with associated peripheral calcifications. Stomach and Bowel: Stomach is nondistended. Multiple loops of fluid-filled small bowel without wall thickening. Mildly distended small bowel loops noted in the left mid and upper abdomen are visualized measuring up to 3.2 cm in maximum diameter. No wall thickening. No surrounding inflammation. There is gradual, narrowing/tapering within the left lower quadrant. No definite transition point. No focal mass or adenopathy. There are several loops of fluid-filled bowel noted in the right mid and upper abdomen without significant dilatation or wall thickening. Moderate amount of fecal material noted throughout the colon. Scattered colonic diverticulosis. There is suggestion of minimal inflammatory stranding involving the sigmoid colon most pronounced distally, adjacent to the urinary bladder. Peritoneum: No abnormal intraperitoneal fluid. No free air. Ventral Wall: No hernias. Abdominal Nodes: No retroperitoneal or mesenteric adenopathy by size criteria. Vessels: Scattered atherosclerotic calcifications of the abdominal aorta and iliac vessels without aneurysmal dilatation. The inferior vena cava appears patent.. PELVIS: Pelvic Organs: Prostate is prominent in size measuring 5.7 x 4.2 cm in axial cross-sectional dimension. Bladder: Minimal circumferential urinary bladder wall thickening likely related to incomplete distension. No significant surrounding perivesicular inflammation. Pelvic Nodes: No pathologically enlarged lymph nodes. Miscellaneous: Tiny fat containing umbilical hernia without acute inflammation.. Bones: There are interval postsurgical changes from posterior fusion of L2 through L4 with bilateral pedicular screws and paraspinal sharee fixation. There has also been left sided hemilaminectomies of these levels. No evidence for surrounding fluid collections or abnormal enhancement. Overlying skin heather present. Stable chronic appearing compression fracture deformity at L1. IMPRESSION: 1. Multiple loops of fluid-filled small bowel without associated wall thickening seen within the left mid and upper abdomen as well as the right mid and upper abdomen. Mild dilatation of left-sided small bowel loops measuring up to 3.2 cm. There is gradual tapering of small bowel caliber without evidence of a definite transition point. Findings may represent postoperative ileus although partial small bowel obstruction not completely excluded. Recommend continued clinical surveillance with follow-up imaging as needed. 2. Scattered colonic diverticulosis with minimal sigmoid colon peridiverticular stranding. Findings may represent early/mild acute diverticulitis. No evidence for perforation or abscess formation. There is mild circumferential wall thickening of this segment. Recommend outpatient screening colonoscopy after resolution of acute findings to exclude possible underlying neoplastic process. 3. Status post interval posterior spinal fusion and left hemilaminectomies from L2 through L4. No abnormal fluid collection seen. No hardware complication identified. 4. Stable appearance of chronic anterior compression fracture of L1. 5. Circumferential wall thickening of the distal esophagus and gastroesophageal junction as well as small hiatal hernia. Findings may be related to sequela of reflux esophagitis. 6. Mild circumferential wall thickening of the urinary bladder likely related to incomplete distension versus sequela of chronic urinary bladder outlet obstruction given prominent size of the prostate gland. 7. Small fat containing umbilical hernia without acute inflammation. 8. Atherosclerosis. Cardiomegaly. 9. Persistent but greatly improved appearance of patchy ill-defined ground-glass opacities of the bilateral lower lobes. Recommend follow-up CT chest in 3-6 months to document resolution. 10. Redemonstration of right inferior pole renal cyst. Dictated by: London Bernstein M.D. on 12/26/2021 at 13:18 Approved by: London Bernstein M.D. on 12/26/2021 at 13:44
[2021-12-26 11:41] LABS: COVID19 -Nasal RAPID Negative (Negative)
[2021-12-26] MEDS: PANTOPRAZOLE 40 MG VIAL IV (13:04)
[2021-12-26 13:12] LABS: Amorphous Sediment Urine 1+; Bacteria Urine None Seen; Culture Indicated Urine Cult Not Indicated; RBC Urine 0-1/HPF (0-5/HPF); Squamous Epithelial Cell Urine 0-1 /HPF (0-5/HPF); WBC Urine None Seen (0-5/HPF)
--- NOTE | 2021-12-26 16:46 | P.HP_ITS ---
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 Patient states that he has been passing gas and having bowel movements but has developed worsening abdominal pain that started 2 days ago. It is primarily on the left side and epigastrium, it does not radiate into the back or anywhere else. He denies any dysuria or urinary frequency. He denies any chest pain, shortness of breath, fever, chills. Starting yesterday he began to develop nausea and then started having nonbloody and nonbilious emesis today. He has not had much to eat. He feels like he is getting weaker since transfer to rehab. In the emergency room, the patient's vital signs were unremarkable. Laboratory evaluation showed no significant leukocytosis, a mildly worsened anemia with a hemoglobin of 8.8, compared to between 9-10 when he was admitted recently. Chemistries revealed a mild hyponatremia with sodium of 131, creatinine was 1.64 with his baseline appearing to be between 1.3 and 1.5 based on prior laboratory evaluations. Urinalysis was unremarkable. COVID-[address] scan was performed of his abdomen which revealed multiple dilated loops of small bowel without a discrete transition point and probable ileus, there is also question of a mild diverticulitis noted on this study. He was admitted to Medicine for further evaluation and management of ileus with possible d iverticulitis. Patient History Medical History Anemia Coronary artery disease Diabetes Hearing impaired Hyperlipidemia Hypertension Hypothyroid IPF (idiopathic pulmonary fibrosis) Tubular adenoma of colon Surgical History H/O lung transplant (2009) Hx of bilateral cataract extraction Hx of cholecystectomy Family & Social History Family History Father Patient denies significant medical history Mother Patient denies significant medical history Social History: household members spouse Safety & Behavioral: Feels Safe in Current Yes Environment Tobacco & Substance use: Tobacco type pipe Smoking Status Former smoker alcohol intake current alcohol intake frequency holiday/special occasion Substance Use Type does not use Meds Home Medications and Allergies Home Medications Medication Instructions Recorded Confirmed Type azithromycin 500 mg tablet 500 mg PO DIRECTED 09/18/20 12/26/21 History carvedilol 3.125 mg tablet 3.125 mg PO BID 09/18/20 12/26/21 History itraconazole 100 mg capsule 100 mg PO BID 09/18/20 12/26/21 History levothyroxine 137 mcg tablet 150 mcg PO QAM 09/18/20 12/26/21 History prednisone 5 mg tablet 5 mg PO DAILY 09/18/20 12/26/21 History sitagliptin 50 mg tablet (Januvia) 50 mg PO DAILY 09/18/20 12/26/21 History sulfamethoxazole 800 0.5 tab PO DIRECTED 09/18/20 12/26/21 History mg-trimethoprim 160 mg tablet tacrolimus 0.5 mg capsule, 0.5 mg PO QPM 09/18/20 12/26/21 History immediate-release tacrolimus 1 mg capsule, 1 mg PO QAM 09/18/20 12/26/21 History immediate-release valganciclovir 450 mg tablet 450 mg PO DAILY 09/18/20 12/26/21 History acetaminophen 500 mg capsule 1,000 mg PO TID 12/15/21 12/26/21 History docusate sodium 100 mg capsule 100 mg PO BID #20 cap 12/23/21 12/26/21 Rx hydroxyzine pamoate 25 mg capsule 25 mg PO Q4HR PRN #30 cap 12/23/21 12/26/21 Rx oxycodone 10 mg tablet 10 mg PO Q4H PRN #30 tab 12/23/21 12/26/21 Rx oxycodone 5 mg tablet 5 mg PO Q4H PRN #60 tab 12/23/21 12/26/21 Rx Allergies Allergy/AdvReac Type Severity Reaction Status Date / Time No Known Drug Allergies Allergy Verified 12/26/21 10:19 Review of Systems Review of Systems Narrative: All other systems reviewed with the patient and are negative unless otherwise stated. Exam Vital Signs (past 8 hours): - 12/26/21 10:12 12/26/21 11:07 12/26/21 11:30 Temperature 97.5 F L Pulse Rate 88 86 85 Respiratory Rate 18 16 21 Blood Pressure 146/76 H Pulse Oximetry 96 97 96 12/26/21 11:31 12/26/21 12:00 12/26/21 13:00 Temperature Pulse Rate 86 85 88 Respiratory Rate 18 17 19 Blood Pressure 162/74 H 154/72 H 155/74 H Pulse Oximetry 97 96 95 12/26/21 14:15 12/26/21 15:00 Temperature 97.7 F Pulse Rate 85 90 Respiratory Rate 15 20 Blood Pressure 125/58 L 103/49 L Pulse Oximetry 96 99 Oxygen Delivery Method Room Air Oxygen Flow Rate 0 Narrative Exam Narrative: General:? Patient is well developed and well nourished, elderly male in mild discomfort and in the left lateral recumbent position in bed. HEENT:? Normocephalic, atraumatic, extraocular muscles intact, oral pharynx is clear and mucous membranes are moist. Neck: supple and symmetric, trachea is midline, no cervical adenopathy. Negative for JVD Chest:? Normal AP diameter and contour without kyphoscoliosis, no tachypnea, equal chest rise bilaterally. Lungs:? CTA b/l no wheezing rhonchi or rales. Cardio:?RRR, 2/6 systolic murmur with no rubs or gallops. Abdomen: Soft, mildly tender and mildly distended primarily on the left upper and left lower quadrants, less so on the right. Musculoskeletal:? Muscle strength is diffusely weak but +5/5. There is no joint pain. His posterior incision is clear dry and intact. Extremities: Bilateral pedal edema without joint effusions. No cyanosis or cl ubbing. Skin:? Pale,? Warm to touch,dry and intact without rashes, ulcerations or petechiae.? There is a some bruising with a superficial skin cut in the right arm Neuro:? Alert and orientated x3,? sensation to touch intact in all extremities, no gross deficits noted of cranial nerves. He is diffusely weak in all extremities but is able to get up and stand with a walker at bedside with significant support. Psych:? Patient has a mildly flat affect, mental status attitude thought context and judgment are appropriate for age and situation Objective ECG Impression: Normal sinus rhythm Left axis deviation Right bundle branch block Unchanged from prior tracings as interpreted by me. Imaging CT scan - abdomen: Radiologist's impression: 1. Multiple loops of fluid-filled small bowel without associated wall thickening seen within the left mid and upper abdomen as well as the right mid and upper abdomen.? Mild dilatation of left-sided small bowel loops measuring up to 3.2 cm.? There is gradual tapering of small bowel caliber without evidence of a definite transition point.? Findings may represent postoperative ileus although partial small bowel obstruction not completely excluded.? Recommend continued clinical surveillance with follow-up imaging as needed. ? 2. Scattered colonic diverticulosis with minimal sigmoid colon peridiverticular stranding.? Findings may represent early/mild acute diverticulitis.? No evidence for perforation or abscess formation.? There is mild circumferential wall thickening of this segment.? Recommend outpatient screening colonoscopy after resolution of acute findings to exclude possible underlying neoplastic process. ? 3. Status post interval posterior spinal fusion and left hemilaminectomies from L2 through L4.? No abnormal fluid collection seen.? No hardware complication identified. ? 4. Stable appearance of chronic anterior compression fracture of L1. ? 5. Circumferential wall thickening of the distal esophagus and gastroesophageal junction as well as small hiatal hernia.? Findings may be related to sequela of reflux esophagitis. ? 6. Mild circumferential wall thickening of the urinary bladder likely related to incomplete distension versus sequela of chronic urinary bladder outlet obstruction given prominent size of the prostate gland. ? 7. Small fat containing umbilical hernia without acute inflammation. ? 8. Atherosclerosis.? Cardiomegaly. ? 9. Persistent but greatly improved appearance of patchy ill-defined ground-glass opacities of the bilateral lower lobes.? Recommend follow-up CT chest in 3-6 months to document resolution.? ? 10. Redemonstration of right inferior pole renal cyst.? Labs Result Diagrams: 12/26/21 11:10 12/26/21 11:10 Labs: Laboratory Results - last 24 hr 12/26/21 12/26/21 12/26/21 11:10 11:10 11:15 WBC 9.5 RBC 2.61 L Hgb 8.8 L Hct 26.2 L MCV 100.2 H MCH 33.9 MCHC 33.8 RDW 14.2 Plt Count 176 Neut % (Auto) 59.6 Lymph % (Auto) 17.4 L [place] % (Auto) 22.3 H Eos % (Auto) 0.0 L Baso % (Auto) 0.7 Neut # (Auto) 5700 Lymph # (Auto) 1700 [place] # (Auto) 2100 H Eos # (Auto) 0 Baso # (Auto) 100 Sodium 131 L Potassium 4.3 Chloride 96 L Carbon Dioxide 30 BUN 51 H Creatinine 1.64 H Estimated GFR 41 L BUN/Creatinine Ratio 31.1 H Glucose 165 H Calcium 8.7 Total Bilirubin 0.7 AST 35 ALT 13 Alkaline Phosphatase 66 Total Protein 5.8 L Albumin 3.1 L Globulin 2.7 Albumin/Globulin Ratio 1.1 Lipase 28 Urine RBC Urine WBC Ur Squamous Epith Cells Amorphous Sediment Urine Bacteria Ur Culture Indicated? SARS-CoV-2 (PCR) Negative 12/26/21 12:43 WBC RBC Hgb Hct MCV MCH MCHC RDW Plt Count Neut % (Auto) Lymph % (Auto) [place] % (Auto) Eos % (Auto) Baso % (Auto) Neut # (Auto) Lymph # (Auto) [place] # (Auto) Eos # (Auto) Baso # (Auto) Sodium Potassium Chloride Carbon Dioxide BUN Creatinine Estimated GFR BUN/Creatinine Ratio Glucose Calcium Total Bilirubin AST ALT Alkaline Phosphatase Total Protein Albumin Globulin Albumin/Globulin Ratio Lipase Urine RBC 0-1/hpf Urine WBC None seen Ur Squamous Epith Cells 0-1 /hpf Amorphous Sediment 1+ Urine Bacteria None seen Ur Culture Indicated? 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 1. post operative ileus - CT scan shows ileus with abdominal pain, nausea, vomiting. May be post operative or related to diverticulitis. - NPO except with medications given improvement. Symptoms also may be due to diverticulitis given mainly L sided pain on exam. - hold any opiate therapy, maximize non-opiate pain medications - give some stool softeners and laxitive therapy. 2. possible diverticulitis - start on ceftriaxone and flagyl given CT findings. 3. type 2 diabetes - MEJIA only given NPO diet for now. Increase as tolerated. Hold Januvia. 4. s/p lung transplant - continue home azithro, itraconazole, prednisone, tacro, and bactrim and antiviral likely related to lung transplantation. 5. HTN - continue home coreg. 6. S/p recent posterior fusion - PT/OT to continue - likely return to [facility]. Code: Full, surrogate decision maker is the patient's spouse DVT: Lovenox Dispo: admit under observation status. I have utilized all available immediate resources to obtain, update, or review the patient's current medications. Time Spent With Patient Critical Care time: I spent a total of [] minutes of critical care time on this patient's care tod ay; this time is exclusive of procedural time. Quality MIPS - Admit I confirm the patient?s Advance Care Plan is present, Code status is documented, Surrogate decision maker is in patient?s record [If Yes, STOP here]: Yes
[2021-12-26] MEDS: metroNIDAZOLE 500 MG/100 ML PIGGYBACK 100 MG IV (17:21)
[2021-12-26] MEDS: BISACODYL 10 MG SUPP PR (17:22)
[2021-12-26] MEDS: cefTRIAXone 2,000 MG in SODIUM CHLORIDE 0.9% 100 ML 200 ML IV (18:26)
[2021-12-26] MEDS: AZITHROMYCIN 250 MG TABLET 500 MG PO (18:31)
[2021-12-26] MEDS: TACROLIMUS 0.5 MG CAPSULE 1 MG PO (18:31)
[2021-12-26] MEDS: TRIMETH/SULFA 160/800 (DS) TABLET 0.5 TAB PO (18:31)
[2021-12-26] MEDS: DOCUSATE 100 MG CAPSULE PO (21:03)
[2021-12-26] MEDS: ACETAMINOPHEN 325 MG TABLET 975 MG PO (21:03)
[2021-12-26] MEDS: carvediloL 3.125 MG TABLET PO (21:03)
--- NOTE | 2021-12-26 21:30 | PC.NURSE ---
Patient is alert and oriented with flat affect. Breath sounds CTA with RA sat of 99%. HRR; telemetry reading was SR w/1st degree AVB + BBB. Denies nausea. BT present and had BM on previous shift following administration of suppository. States abdomen is tender to palpation but denies abdominal pain. Denies dysuria, frequency or urgency with urination. Is able to turn himself in bed. Generalized weakness. Gait not assessed at this time. Dressing to back is CDI. Noted skin tears on right forearm; non-adherent dressing placed and stockinette applied to arm. 2+ bilateral LE edema. Wearing bilateral calf SCD's but complains they are keeping him awake so they were removed and patient reminded to ankle wave. At shift change had complained of 8/10 back pain but declined intervention and currently denies pain. Fall risk score is high and bed alarm is activated.
[2021-12-27] VITALS (8 sets, daily range): BP systolic 101–148; BP diastolic 58–80; PULSE 65–91; RESP 14–18; TEMP 36.2–36.4; O2SAT 96–100
[2021-12-27] MEDS: TRAMADOL 50 MG TABLET PO (00:11)
[2021-12-27] MEDS: metroNIDAZOLE 500 MG/100 ML PIGGYBACK 100 MG IV ×2 (00:53→08:22)
[2021-12-27 05:37] LABS: Add Manual Diff / Slide Review NO; Basophils Absolute Auto 0 /uL (0-100); Basophils Percent Auto 0.6 % (0-2); Eosinophils Absolute Auto 0 /uL (0-450); Eosinophils Percent Auto 0.2 % (2-4); Hematocrit 22.4 % (41-53); Hemoglobin 7.5 g/dL (13.5-17.5); Lymphocytes Absolute Auto 1700 /uL (1100-4500); Lymphocytes Percent Auto 20.2 % (25-40); Mean Corpuscular HGB Conc 33.5 % (30-36); Mean Corpuscular Hemoglobin 33.9 PG (26-34); Mean Corpuscular Volume 101.3 fL (80-100); Monocytes Absolute Auto 2000 /uL (0-900); Monocytes Percent Auto 24.1 % (3-14); Neutrophils Absolute Auto 4500 /uL (1500-7000); Neutrophils Percent Auto 54.9 % (50-75); Platelet Count 157 X10^3/uL (150-400); Red Blood Cell Count 2.21 X10^6/uL (4.5-5.9); White Blood Cell Count 8.3 X10^3/uL (4.5-11.0)
[2021-12-27 05:51] LABS: Alanine Aminotransferase 11 IU/L (<50); Albumin 2.3 g/dL (3.5-5.0); Alkaline Phosphatase 49 U/L (38-126); Aspartate Aminotransferase 28 IU/L (17-59); BUN Creatinine Ratio 24.8 (6-22); Bilirubin Total 0.4 mg/dL (0.2-1.3); Blood Urea Nitrogen 40 mg/dL (9-20); Calcium 7.5 mg/dL (8.4-10.2); Carbon Dioxide 26 mmol/L (22-32); Chloride 103 mmol/L (98-107); Estimated Glomerular Filt Rate 42 mL/min (>60); Globulin 2.4 g/dL (1.7-4.1); Glucose 91 mg/dL (80-110); HEMOLYSIS < 15 (0-50); Potassium 3.9 mmol/L (3.4-5.1); Sodium 133 mmol/L (137-145); Total Protein 4.7 g/dL (6.3-8.2)
[2021-12-27 05:56] LABS: Hemoglobin A1C% w Est Avg Glu 6.2 % (4.0-6.0)
[2021-12-27] MEDS: LEVOTHYROXINE 150 MCG TABLET PO (05:59)
[2021-12-27] MEDS: ACETAMINOPHEN 325 MG TABLET 975 MG PO ×2 (05:59→13:18)
[2021-12-27] MEDS: DOCUSATE 100 MG CAPSULE PO (08:21)
[2021-12-27] MEDS: carvediloL 3.125 MG TABLET PO (08:21)
[2021-12-27] MEDS: ENOXAPARIN 40 MG/0.4 ML SYRINGE SUBCUT (08:22)
[2021-12-27] MEDS: TACROLIMUS 0.5 MG CAPSULE 1 MG PO (08:23)
[2021-12-27] MEDS: predniSONE 5 MG TABLET PO (08:23)
[2021-12-27] MEDS: VALGANCICLOVIR 450 MG 450 EACH PO (08:23)
[2021-12-27] MEDS: SODIUM CHLORIDE 0.9% 1,000 ML 75 ML IV (08:33)
--- NOTE | 2021-12-27 10:19 | OT.IP.EVAL ---
Past Medical History (Last Reviewed 12/26/21 @ 16:48 by Alli Ghosh DO) Anemia Coronary artery disease Diabetes H/O lung transplant (2010) Hearing impaired Hx of bilateral cataract extraction Hx of cholecystectomy Hyperlipidemia Hypertension Hypothyroid IPF (idiopathic pulmonary fibrosis) Tubular adenoma of colon Surgical History (Last Reviewed 12/26/21 @ 16:48 by Alli Ghosh DO) H/O lung transplant (2010) Hx of bilateral cataract extraction Hx of cholecystectomy Occupational Therapy Inpatient Evaluation/Re-Eval M1 PT/OT-IP Prior Functional Status Start: 12/27/21 12:14 Freq: NEEDED Status: Active Protocol: Document 12/27/21 12:46 [facility] (Rec: 12/27/21 13:00 [facility] [id number]) Medical Review Prior Functional Status Medical History Reviewed Yes Communication able to make needs known Mobility and Gait pt just underwent TLIF last and d/c to SNF. prior to TLIF: pt stated that he is modified independent with all mobilities and ambulation using SPC/4WW. stated that he started using an AD due to back back since he was (+) Covid back in September; prior to Covid: pt was modified independent without AD Activities of Daily Living and IADL's Prior to back surgery, pt used a color checker to assist with his dressing needs. Social History Household Members spouse Living Arrangements House Number of Floors (Floors) One Floor Number of Stairs To Enter/Railing? 2 steps R rail to enter Home Environment High Toilet,Walk in Shower Home Equipment Front Wheel Walker,Straight Cane,Shower Seat without Backrest,Hand Held Shower Additional Social History Comment has a toilet safety frame pt stated that spouse is limited with regards to assistance she can provide to pt pt stated that they rented a hospital bed for him M2 OT-IP Current Condition Start: 12/27/21 12:46 Freq: Status: Active Protocol: Document 12/27/21 12:46 [facility] (Rec: 12/27/21 13:00 [facility] [id number]) Occupational Therapy Current Condition Current Condition Evaluation Date 12/27/21 Treatment Diagnosis Abdominal pain, ileus, s/p recent L2-3, L3-4 TLIF 12/20/21 Diagnosis Onset Date 12/26/21 Post Operative Precautions Lumbar Precautions Log Roll,No Twisting,Limit Bending,Lifting Restriction of 10 lbs,Gait Belt above Incisional Area M3 OT- IP Subjective and Pain Start: 12/27/21 12:46 Freq: Status: Active Protocol: Document 12/27/21 12:46 [facility] (Rec: 12/27/21 13:00 [facility] [id number]) OT- Subjective Occupational Therapy Visit Type Type Initial Evaluation Visit Start Time 09:53 Visit Stop Time 10:19 Total Visit Minutes 26 Occupational Therapy Visit Comments Patient Comments Pt agreed to get up to do grooming at the sink. Patient/Caregiver Goals To get to fishing and shrimping again. OT Pain Assessment Pain When Pain Assessed At Rest Pain Present Pain Present Pain Reported Location low back Intensity 4 Scale Used Numeric (0 - 10) M4 OT- IP ADL's Start: 12/27/21 12:46 Freq: Status: Active Protocol: Document 12/27/21 12:46 [facility] (Rec: 12/27/21 13:00 [facility] [id number]) OT [id number] Comments OT Self-Feeding Comments NOt at meal time. OT ADL-Grooming General Evaluation Grooming Ability Standby Assistance Comments OT Grooming Comments pt able to stand initially and then needing to sit down due to back pain. OT ADL-Oral Care General Eval Oral Care Ability Standby Assistance Areas of Assistance Retrieving/Set-Up of Items Comments Oral Care Comments Pt needing to take a sitting rest break while doing his oral care needs while standing with the FWW. Reminding pt to hinge at his hips when spitting out into the sink to best follow his back precautions. OT ADL-Dressing General Eval Lower Body Dressing Ability Maximum Assistance Areas Needing Assistance Socks OT ADL-Toileting Comments OT Toileting Comments Pt not having to use the toilet at this time. OT ADL-Bathing Comments OT Bathing Comments NOt performed. M5 OT- IP IADL's Start: 12/27/21 12:46 Freq: Status: Active Protocol: Document 12/27/21 12:46 [facility] (Rec: 12/27/21 13:00 [facility] [id number]) OT-Instrumental Activities of Daily Living Home Safety Awareness Awareness of Need for Assistance at Home Good Awareness Ability to Problem Solve Emergency Able to Problem Solve Situations M6 OT- IP Functional Cognition Start: 12/27/21 12:46 Freq: Status: Active Protocol: Document 12/27/21 12:46 [facility] (Rec: 12/27/21 13:00 [facility] [id number]) Cognitive Factors Limiting Selfcare Function Cognitive Ability Level of Alertness Alert Patient Orientation Name,Age,Birthday,Month,Date, Year,Day of Week,Place, Situation Attention Span Ability Capable of Focused Attention, Capable of Sustained Attention Ability to Follow Commands Able to Follow One Step Commands Cognitive Comments Cognitive Assessment Comments Pt needing safety cues and reminders to activate his legs muscles and assist with his arms to slow himself down when sitting down. Pt very motivated to get better. OT- Vision and Hearing OT- Vision Assessment Vision Assessment Comments Pt a little hard of hearing. M7 OT- IP Mobility and Balance Start: 12/27/21 12:46 Freq: Status: Active Protocol: Document 12/27/21 12:46 [facility] (Rec: 12/27/21 13:00 [facility] [id number]) OT- Bed Mobility Assessment Rolling Type of Rolling Roll to Right Level of Assistance Standby Assistance,Bedrails Supine to Sit Supine to Sit Assist Standby Assistance,Bedrails OT-Transfer Assessment Sit to and From Stand Sit to and from Stand Moderate Assistance Transfers Transfer Ability Contact Guard Assistance Technique Transfer Destination Bed,Chair Transfer Technique Stand Step Pivot Devices Transfer Assistive Devices Gait Belt,Front Wheeled Walker Comments Mobility Comments MODA to stand from the bed, once on his feet able to walk with CGA and FWW, however pt do use his arms in good moderation of his FWW. OT- Balance Assessment Sitting Balance and Reactions Static Sitting Balance Ability Good Standing Balance and Reactions Static Standing Balance Ability Fair M8 OT- IP Objective Assessments Start: 12/27/21 12:46 Freq: Status: Active Protocol: Document 12/27/21 12:46 [facility] (Rec: 12/27/21 13:00 [facility] [id number]) OT-Muscle Tone Assessment Muscle Tone WNL Yes M9 OT- IP Assessment and Plan Start: 12/27/21 12:46 Freq: Status: Active Protocol: Document 12/27/21 12:46 [facility] (Rec: 12/27/21 13:00 [facility] [id number]) OT Summary Assessment and Plan Potential Rehabilitation Potential Good Analytic Complexity at Evaluation Low Summary OT Impairments Pain,Balance,Functional Mobility,Grooming,Dressing, Toileting,Bathing,Toilet Transfers,Shower Transfers, Activity Tolerance Progress Towards Goals Progressing Toward Goals Assessment Summary Pt low complexity here with abdominal pain/ileus and recent back surgery on 12/20/21 . Pt looking to go back to skilled rehab when medically stable. Goals Grooming Goal Independent Dressing Goal Standby Assistance Toileting Goal Independent Bathing Goal Independent Toilet Transfer Goal Independent Shower Transfer Goal Independent Days to Meet Goals 25 Treatment Plan OT Treatment Plan ADL Training,Functional Mobility,Patient/Family Education,Discharge Planning Discharge Recommendations OT Discharge Recommendations SNF Rehab Transportation Needs at Discharge Private Vehicle
--- NOTE | 2021-12-27 10:21 | PT.IIE ---
Medical History (Last Reviewed 12/26/21 @ 16:48 by Alli Ghosh DO) Anemia Coronary artery disease Diabetes Hearing impaired Hyperlipidemia Hypertension Hypothyroid IPF (idiopathic pulmonary fibrosis) Tubular adenoma of colon Physical Therapy Inpatient Evaluation/Re-Eval M1 PT/OT-IP Prior Functional Status Start: 12/27/21 12:14 Freq: NEEDED Status: Active Protocol: Document 12/27/21 10:21 AB (Rec: 12/27/21 12:25 AB [id number]) Medical Review Prior Functional Status Medical History Reviewed Yes Communication able to make needs known Mobility and Gait pt just underwent TLIF last and d/c to SNF. prior to TLIF: pt stated that he is modified independent with all mobilities and ambulation using SPC/4WW. stated that he started using an AD due to back back since he was (+) Covid back in September; prior to Covid: pt was modified independent without AD Social History Household Members spouse Living Arrangements House Number of Floors (Floors) One Floor Number of Stairs To Enter/Railing? 2 steps R rail to enter Home Environment High Toilet,Walk in Shower Home Equipment Front Wheel Walker,Straight Cane,Shower Seat without Backrest,Hand Held Shower Additional Social History Comment has a toilet safety frame pt stated that spouse is limited with regards to assistance she can provide to pt pt stated that they rented a hospital bed for him M2 PT-IP Current Condition Start: 12/27/21 12:14 Freq: NEEDED Status: Active Protocol: Document 12/27/21 10:21 AB (Rec: 12/27/21 12:25 AB [id number]) Physical Therapy Current Condition Current Condition Evaluation Date 12/27/21 Treatment Diagnosis partial SBO; TLIF; difficulty in walking Onset Date 12/26/21 M3 PT-IP Subjective Start: 12/27/21 12:14 Freq: NEEDED Status: Active Protocol: Document 12/27/21 10:21 AB (Rec: 12/27/21 12:25 AB [id number]) Subjective Physical Therapy Visit Type Type Initial Evaluation Visit Start Time 10:21 Visit Stop Time 10:45 Total Visit Minutes 24 Number of COAST[employer] DEFENSE OFFICER Visits 0 Physical Therapy Visit Comments Patient Comments pt is agreeable to do PT Therapy Pain Assessment Pain When Pain Assessed At Rest Pain Present Pain Present Pain Reported Location low back Intensity 5 Scale Used Numeric (0 - 10) Pain Management Techniques Distraction,Modification of Treatment,Re-positioning, Timing of Activity with Medications M4 PT-IP Mobility and Gait Start: 12/27/21 12:14 Freq: NEEDED Status: Active Protocol: Document 12/27/21 10:21 AB (Rec: 12/27/21 12:25 AB [id number]) PT-Bed Mobility Assessment Rolling Type of Rolling Log Rolling Level of Assist Standby Assistance Supine to Sit Supine to Sit Standby Assistance,Bedrails Sit to Supine Sit to Supine Standby Assistance,Bedrails PT-Transfer Assessment Sit to and From Stand Sit to and from Stand Moderate Assistance,1 Person Assistance,Use of Upper Extremities Equipment Transfer Assistive Device Gait Belt,Front Wheeled Walker Orthotic/Prosthetic Devices or Brace: No Transfers Transfer Destination Bed Transfer Technique ambulated Transfer Ability Level of Assist Minimal Assistance,1 Person Assistance,Use of Upper Extremities Comments Mobility Comments reviewed back precautions and log roll bed mobility. pt completed sit to stand from the chair mod A and cues. ambulated ~ 12 ft using FWW min A. sat on EOB and completed log roll sit<>supine SBA with use of bed rail. completed sit to stand mod A and ambulated in room ~ 20 ft using FWW min A. agreed to stay up on chair. positioned on chair. call light and table placed within reach. Gait Assessment Gait Gait Assistance Required: Minimum Assistance Distance (Feet) 20 Able to Maintain Weight Bearing Status Yes During Gait Assistive Devices Assistive Device Gait Belt,Front Wheeled Walker Orthotic/Prosthetic Devices or Brace: No Gait Deviations General Gait Pattern Decreased Stride Length, Decreased Feet Clearance Factors Limiting Gait Function Factors Limiting Gait Function Decreased Activity Tolerance, Decreased Strength,Limited Range of Motion,Pain,Poor Balance,Poor Safety Awareness PT-Balance Assessment Sitting Balance and Reactions Static Sitting Balance Ability Good Dynamic Sitting Balance Ability Good Standing Balance and Reactions Static Standing Balance Ability Fair Dynamic Standing Balance Ability Fair Device Used FWW M5 PT-IP Objective Assessments Start: 12/27/21 12:14 Freq: NEEDED Status: Active Protocol: Document 12/27/21 10:21 AB (Rec: 12/27/21 12:25 AB [id number]) Orientation Orientation/Cognition Level of Alertness Alert Orientation Name,Place,Situation Language Function Ability No Deficits Noted Safety Awareness Decreased Safety Awareness Strength Lower Extremity Strength Assessment Bilaterally Impaired Hip 3+/5 Knee 3+/5 Sensation Assessment Sensation Gross Sensation WNL Muscle Tone Muscle Tone WNL Yes M6 PT-IP Treatment Start: 12/27/21 12:14 Freq: NEEDED Status: Active Protocol: Document 12/27/21 10:21 AB (Rec: 12/27/21 12:25 AB [id number]) Physical Therapy Treatment Education Education Provided Precautions,Safety M7 PT-IP Assessment and Plan Start: 12/27/21 12:14 Freq: NEEDED Status: Active Protocol: Document 12/27/21 10:21 AB (Rec: 12/27/21 12:25 AB [id number]) PT Summary Assessment and Plan Potential Rehabilitation Potential Good Status of Condition at Evaluation Stable Summary Impairments Pain,ROM,Strength,Balance, Coordination,Sensation,Tone, Cognition,Bed Mobility, Transfers,Gait,Activity Tolerance Assessment Summary pt requiring mod A for sit to stand and min A with ambulation using FWW. pt currently in the hospital for SBO but just had TLIF last and was d/c'd to SNF. pt with limited assistance at home and needs to be more independent than current level and will benefit from SNF rehab. Goals Bed Mobility Goal Independent Transfer Goal Independent,Front Wheeled Walker Gait Goal Independent,Front Wheel Walker Gait Distance 200 Other Goals up/down 2 steps R rail SBA Days to Meet Goals 5 Frequency of Treatment Frequency Of Treatment Twice a Day Treatment Plan Physical Therapy Treatment Plan Bed Mobility Training,Transfer Training,Gait Training, Therapeutic Exercise,Balance Retraining,Post Op Education, Discharge Planning,Hot or Cold Pack,Neuromuscular Re-ed, Coordination Retraining,Manual Therapy Precautions Lumbar Precautions Log Roll,No Twisting,Limit Bending,Lifting Restriction of 10 lbs,Gait Belt above Incisional Area Recommendations To Nursing Amount of Assist Needed 1 Person Assist Discharge Recommendations PT Discharge Recommendations SNF Rehab Transportation Needs at Discharge Private Vehicle,Wheelchair/ Cabulance
--- NOTE | 2021-12-27 10:21 | PT.IIE ---
Medical History (Last Reviewed 12/26/21 @ 16:48 by Alli Ghosh DO) Anemia Coronary artery disease Diabetes Hearing impaired Hyperlipidemia Hypertension Hypothyroid IPF (idiopathic pulmonary fibrosis) Tubular adenoma of colon Physical Therapy Inpatient Evaluation/Re-Eval M1 PT/OT-IP Prior Functional Status Start: 12/27/21 12:14 Freq: NEEDED Status: Active Protocol: Document 12/27/21 12:46 [facility] (Rec: 12/27/21 13:00 [facility] [id number]) Medical Review Prior Functional Status Medical History Reviewed Yes Communication able to make needs known Mobility and Gait pt just underwent TLIF last and d/c to SNF. prior to TLIF: pt stated that he is modified independent with all mobilities and ambulation using SPC/4WW. stated that he started using an AD due to back back since he was (+) Covid back in September; prior to Covid: pt was modified independent without AD Activities of Daily Living and IADL's Prior to back surgery, pt used a commodity broker to assist with his dressing needs. Social History Household Members spouse Living Arrangements House Number of Floors (Floors) One Floor Number of Stairs To Enter/Railing? 2 steps R rail to enter Home Environment High Toilet,Walk in Shower Home Equipment Front Wheel Walker,Straight Cane,Shower Seat without Backrest,Hand Held Shower Additional Social History Comment has a toilet safety frame pt stated that spouse is limited with regards to assistance she can provide to pt pt stated that they rented a hospital bed for him M2 PT-IP Current Condition Start: 12/27/21 12:14 Freq: NEEDED Status: Active Protocol: Document 12/27/21 10:21 AB (Rec: 12/27/21 12:25 AB [id number]) Physical Therapy Current Condition Current Condition Evaluation Date 12/27/21 Treatment Diagnosis partial SBO; TLIF; difficulty in walking Onset Date 12/26/21 M3 PT-IP Subjective Start: 12/27/21 12:14 Freq: NEEDED Status: Active Protocol: Document 12/27/21 10:21 AB (Rec: 12/27/21 12:25 AB [id number]) Subjective Physical Therapy Visit Type Type Initial Evaluation Visit Start Time 10:21 Visit Stop Time 10:45 Total Visit Minutes 24 Notes talked with nurse regarding pt prior to PT eval due to low H &H level. nurse stated that pt is ok for PT and no interventions ordered for low H&H ordered at this time. Number of MANAGER BOOKS Visits 0 Physical Therapy Visit Comments Patient Comments pt is agreeable to do PT Therapy Pain Assessment Pain When Pain Assessed At Rest Pain Present Pain Present Pain Reported Location low back Intensity 5 Scale Used Numeric (0 - 10) Pain Management Techniques Distraction,Modification of Treatment,Re-positioning, Timing of Activity with Medications M4 PT-IP Mobility and Gait Start: 12/27/21 12:14 Freq: NEEDED Status: Active Protocol: Document 12/27/21 10:21 AB (Rec: 12/27/21 12:25 AB [id number]) PT-Bed Mobility Assessment Rolling Type of Rolling Log Rolling Level of Assist Standby Assistance Supine to Sit Supine to Sit Standby Assistance,Bedrails Sit to Supine Sit to Supine Standby Assistance,Bedrails PT-Transfer Assessment Sit to and From Stand Sit to and from Stand Moderate Assistance,1 Person Assistance,Use of Upper Extremities Equipment Transfer Assistive Device Gait Belt,Front Wheeled Walker Orthotic/Prosthetic Devices or Brace: No Transfers Transfer Destination Bed Transfer Technique ambulated Transfer Ability Level of Assist Minimal Assistance,1 Person Assistance,Use of Upper Extremities Comments Mobility Comments reviewed back precautions and log roll bed mobility. BP: 109/61. pt without c/o dizziness/nausea/ lightheadedness during PT session. pt completed sit to stand from the chair mod A and cues. ambulated ~ 12 ft using FWW min A. sat on EOB and completed log roll sit<>supine SBA with use of bed rail. completed sit to stand mod A and ambulated in room ~ 20 ft using FWW min A. agreed to stay up on chair. positioned on chair. call light and table placed within reach. Gait Assessment Gait Gait Assistance Required: Minimum Assistance Distance (Feet) 20 Able to Maintain Weight Bearing Status Yes During Gait Assistive Devices Assistive Device Gait Belt,Front Wheeled Walker Orthotic/Prosthetic Devices or Brace: No Gait Deviations General Gait Pattern Decreased Stride Length, Decreased Feet Clearance Factors Limiting Gait Function Factors Limiting Gait Function Decreased Activity Tolerance, Decreased Strength,Limited Range of Motion,Pain,Poor Balance,Poor Safety Awareness PT-Balance Assessment Sitting Balance and Reactions Static Sitting Balance Ability Good Dynamic Sitting Balance Ability Good Standing Balance and Reactions Static Standing Balance Ability Fair Dynamic Standing Balance Ability Fair Device Used FWW M5 PT-IP Objective Assessments Start: 12/27/21 12:14 Freq: NEEDED Status: Active Protocol: Document 12/27/21 10:21 AB (Rec: 12/27/21 12:25 AB [id number]) Orientation Orientation/Cognition Level of Alertness Alert Orientation Name,Place,Situation Language Function Ability No Deficits Noted Safety Awareness Decreased Safety Awareness Strength Lower Extremity Strength Assessment Bilaterally Impaired Hip 3+/5 Knee 3+/5 Sensation Assessment Sensation Gross Sensation WNL Muscle Tone Muscle Tone WNL Yes M6 PT-IP Treatment Start: 12/27/21 12:14 Freq: NEEDED Status: Active Protocol: Document 12/27/21 10:21 AB (Rec: 12/27/21 12:25 AB [id number]) Physical Therapy Treatment Education Education Provided Precautions,Safety M7 PT-IP Assessment and Plan Start: 12/27/21 12:14 Freq: NEEDED Status: Active Protocol: Document 12/27/21 10:21 AB (Rec: 12/27/21 12:25 AB [id number]) PT Summary Assessment and Plan Potential Rehabilitation Potential Good Status of Condition at Evaluation Stable Summary Impairments Pain,ROM,Strength,Balance, Coordination,Sensation,Tone, Cognition,Bed Mobility, Transfers,Gait,Activity Tolerance Assessment Summary pt requiring mod A for sit to stand and min A with ambulation using FWW. pt currently in the hospital for SBO but just had TLIF last and was d/c'd to SNF. pt with limited assistance at home and needs to be more independent than current level and will benefit from SNF rehab. Goals Bed Mobility Goal Independent Transfer Goal Independent,Front Wheeled Walker Gait Goal Independent,Front Wheel Walker Gait Distance 200 Other Goals up/down 2 steps R rail SBA Days to Meet Goals 5 Frequency of Treatment Frequency Of Treatment Twice a Day Treatment Plan Physical Therapy Treatment Plan Bed Mobility Training,Transfer Training,Gait Training, Therapeutic Exercise,Balance Retraining,Post Op Education, Discharge Planning,Hot or Cold Pack,Neuromuscular Re-ed, Coordination Retraining,Manual Therapy Precautions Lumbar Precautions Log Roll,No Twisting,Limit Bending,Lifting Restriction of 10 lbs,Gait Belt above Incisional Area Recommendations To Nursing Amount of Assist Needed 1 Person Assist Discharge Recommendations PT Discharge Recommendations SNF Rehab Transportation Needs at Discharge Private Vehicle,Wheelchair/ Cabulance
[2021-12-27] MEDS: GABAPENTIN 300 MG CAPSULE PO ×2 (13:18)
--- NOTE | 2021-12-27 14:09 | P.DS_ITS ---
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 Patient states that he has been passing gas and having bowel movements but has developed worsening abdominal pain that started 2 days ago. It is primarily on the left side and epigastrium, it does not radiate into the back or anywhere else. He denies any dysuria or urinary frequency. He denies any chest pain, shortness of breath, fever, chills. Starting yesterday he began to develop nausea and then started having nonbloody and nonbilious emesis today. He has not had much to eat. He feels like he is getting weaker since transfer to rehab. In the emergency room, the patient's vital signs were unremarkable. Laboratory evaluation showed no significant leukocytosis, a mildly worsened anemia with a hemoglobin of 8.8, compared to between 9-10 when he was admitted recently. Chemistries revealed a mild hyponatremia with sodium of 131, creatinine was 1.64 with his baseline appearing to be between 1.3 and 1.5 based on prior laboratory evaluations. Urinalysis was unremarkable. COVID-[address] scan was performed of his abdomen which revealed multiple dilated loops of small bowel without a discrete transition point and probable ileus, there is also question of a mild diverticulitis noted on this study. He was admitted to Medicine for further evaluation and management of ileus with possible d iverticulitis. Discharge Providers Provider Date of admission: 12/26/21 14:21 Discharge Date: 12/27/21 Consults: 12/26/21 16:56 Consult to Occupational Therapy Evaluate & Treat Comment: Physician Instructions: Evaluate and treat Consult to Physical Therapy Evaluate & Treat Comment: Physician Instructions: Evaluate and Treat Discharge provider: Alli Ghosh DO Summary Hospital Course Discharge Diagnosis: 1. post operative ileus, acute, present on admission. 2. Acute diverticulitis, present on admission. 3. type 2 diabetes, chronic 4. s/p lung transplant 5. HTN 6. S/p recent posterior fusion Hospital Course: Darryl Jacobs is an 80-year-old male with a history of a double lung [place]ourke splant in 2017 on anti-rejection medication and chronic prednisone, diabetes type 2,hypertension, and spinal stenosis s/p recent lumbar fusion who presented with worsening abdominal pain over the past couple of days. He was found to have a possible ileus or diverticulitis on CT scanning. He was initially started on bowel rest and antibiotics. The following day his abdominal pain had resolved and he was tolerating a diet without abdominal pain, nausea, or vomiting. He was discharged on oral antibiotics for possible diverticulitis. Medications for laxitive therapy were started and recommend that patient's opiates be discontinued. Alternative pain medications were prescribed on discharge. Patient returned to SNF for continued therapies after his recent spinal fusion. Exam Vital Signs (past 8 hours): - 12/27/21 08:00 12/27/21 08:21 12/27/21 09:42 Temperature 97.3 F L Pulse Rate 73 72 Respiratory Rate 16 Blood Pressure 116/71 101/58 L Pulse Oximetry 98 98 12/27/21 12:00 12/27/21 12:12 Temperature 97.3 F L Pulse Rate 65 Respiratory Rate 14 Blood Pressure 101/60 Pulse Oximetry 100 98 Oxygen Delivery Method Room Air Oxygen Flow Rate 0 Narrative Exam Narrative: General:? Patient is well developed and well nourished, elderly male in no acute distress. HEENT:? Normocephalic, atraumatic, extraocular muscles intact, oral pharynx is clear and mucous membranes are moist. Neck: supple and symmetric, trachea is midline, no cervical adenopathy. Negative for JVD Chest:? Normal AP diameter and contour without kyphoscoliosis, no tachypnea, equal chest rise bilaterally. Lungs:? CTA b/l no wheezing rhonchi or rales. Cardio:?RRR, 2/6 systolic murmur with no rubs or gallops. Abdomen:? Soft, non-tender, non-distended. Musculoskeletal:? Muscle strength is diffusely weak but +5/5, improved today.? There is no joint pain.? His posterior incision is clear dry and intact. Extremities:? Bilateral pedal edema without joint effusions.? No cyanosis or clubbing. Skin:? Pale,? Warm to touch,dry and intact without rashes, ulcerations or petechiae.? There is a some bruising with a superficial skin cut in the right arm Neuro:? Alert and orientated x3,? sensation to touch intact in all extremities, no gross deficits noted of cranial nerves.?Weakness is improved today. Psych:? Patient has a mildly flat affect, mental status attitude thought context and judgment are appropriate for age and situation Objective Labs Result Diagrams: 12/27/21 04:36 12/27/21 04:36 Labs: Laboratory Results - last 24 hr 12/27/21 12/27/21 12/27/21 04:36 04:36 04:36 WBC 8.3 RBC 2.21 L Hgb 7.5 L Hct 22.4 L MCV 101.3 H MCH 33.9 MCHC 33.5 RDW 14.0 Plt Count 157 Neut % (Auto) 54.9 Lymph % (Auto) 20.2 L Dixie % (Auto) 24.1 H Eos % (Auto) 0.2 L Baso % (Auto) 0.6 Neut # (Auto) 4500 Lymph # (Auto) 1700 Dixie # (Auto) 2000 H Eos # (Auto) 0 Baso # (Auto) 0 Sodium 133 L Potassium 3.9 Chloride 103 Carbon Dioxide 26 BUN 40 H Creatinine 1.61 H Estimated GFR 42 L BUN/Creatinine Ratio 24.8 H Glucose 91 Hemoglobin A1c 6.2 H Calcium 7.5 L Total Bilirubin 0.4 AST 28 ALT 11 Alkaline Phosphatase 49 Total Protein 4.7 L Albumin 2.3 L Globulin 2.4 Albumin/Globulin Ratio 1.0 PFSH Medical History Anemia Coronary artery disease Diabetes Hearing impaired Hyperlipidemia Hypertension Hypothyroid IPF (idiopathic pulmonary fibrosis) Tubular adenoma of colon Surgical History H/O lung transplant (2009) Hx of bilateral cataract extraction Hx of cholecystectomy Family History Father Patient denies significant medical history Mother Patient denies significant medical history Social History marital status: household members: spouse Smoking Status: Former smoker alcohol intake: current Discharge Plan Discharge Plan Patient Disposition: SNF Transfer to: [facility] Provider Discharge Comment: Patient was admitted with nausea/vomiting/and abdominal pain. Either due to post-op ileus or possible diverticulitis. Will treat with 5 days of antibiotics for diverticulitis. Avoid opiate therapy for pain as likely led to probable ileus as well. Will return to SNF for continued rehab after recent spinal surgery. I certify the postop hospital retirement care is medically necessary on a continuing basis for any conditions for which he/ she received care during this hospitalization.: Yes The receiving facility has agreed to accept transfer and provide medical treatment.: Yes Discharge orders & Medications Prescriptions: New amoxicillin-pot clavulanate 875-125 mg tablet 1 tab PO BID 5 Days Qty: 10 0RF tramadol 50 mg Tablet 50 mg PO Q4H PRN (Reason: Pain, Moderate (4-6)) 7 Days Qty: 21 0RF gabapentin [Neurontin] 300 mg Capsule 300 mg PO Q12HR 30 Days Qty: 60 0RF Continued valganciclovir 450 mg tablet 450 mg PO DAILY 0RF levothyroxine 137 mcg tablet 150 mcg PO QAM 0RF prednisone 5 mg tablet 5 mg PO DAILY 0RF Label Comments: TAKE 1 TABLET BY MOUTH EVERY DAY sulfamethoxazole-trimethoprim 800-160 mg tablet 0.5 tab PO DIRECTED 0RF Rx Instructions: TAKE 1/2 TABLET BY MOUTH EVERY SUNDAY, SUNDAY, AND SUNDAY carvedilol 3.125 mg tablet 3.125 mg PO BID 0RF itraconazole 100 mg capsule 100 mg PO BID 0RF tacrolimus 1 mg capsule 1 mg PO QAM 0RF Label Comments: TAKE 1 CAPSULE BY MOUTH EVERY DAY IN THE MORNING tacrolimus 0.5 mg capsule 0.5 mg PO QPM 0RF Label Comments: TAKE 1 CAPSULE BY MOUTH EVERY EVENING azithromycin 500 mg tablet 500 mg PO DIRECTED 0RF Rx Instructions: TAKE 1 TABLET BY MOUTH EVERY SUNDAY, SUNDAY, AND SUNDAY Januvia 50 mg tablet 50 mg PO DAILY 0RF Label Comments: TAKE 1 TABLET BY MOUTH EVERY DAY acetaminophen 500 mg Capsule 1,000 mg PO TID 0RF docusate sodium 100 mg Capsule 100 mg PO BID Qty: 20 0RF hydroxyzine pamoate 25 mg Capsule 25 mg PO Q4HR PRN (Reason: Nausea And Vomiting) Qty: 30 0RF Discontinued oxycodone 5 mg tablet 5 mg PO Q4H PRN (Reason: pain (scale score 4-6)) Qty: 60 0RF oxycodone 10 mg tablet 10 mg PO Q4H PRN (Reason: pain (scale score 7-10)) Qty: 30 0RF Follow up/Referrals: Froilan Morgan MD [Physician] - Discharge Health Status Precautions: [place] Diet/Activity/Treatments Diet: Diet as Tolerated Liquid consistency: Normal/Thin Food texture: Regular [facility] Reason for rehabilitation: Post-operative therapy Rehab type: Physical therapy and Occupational therapy Discharge Data Attending Provider: Alli Ghosh
--- NOTE | 2021-12-27 14:37 | CM.DANOTE ---
DCP/Assessment: Patient is a 81yr old male admitted to [facility] from [facility] with abdominal pain. Primary payor is 1)Medicare 2)[employer]. Per provider patient is medically stable to return to [facility] today. [employer] placed call to February at [facility] and they can accept. Patient scheduled to be picked up around 3:30pm. INFORMATION [employer]OC met with patient and he is aware and agreeable to plan. Patient requesting [employer] call his spouse/Rhiannon. Placed call to Rhiannon informing her of above. No additional d/c needs identified. Asked FUEL CELL TECHNICIAN/Rose to finalize discharge. P: [facility] today. [facility] Discharge Planning/Care Management CM Discharge Assessment Start: 12/27/21 14:35 Freq: Status: Active Protocol: Document 12/27/21 14:35 KJS (Rec: 12/27/21 14:37 KJS [id number]) Discharge Planning Assessment Assigned Funnel Setter DENIZ Tony Contact Information Rhiannon Basilio (spouse) ph# [phone] Advance Directives? Yes Advance Directives on File No History Provided By Patient,Significant Other, Medical Record Prior Living Arrangements House Household Members spouse Facility Name Admitted From: [facility] Willing to Return to Facility? Yes Is patient alert and oriented? Yes Caregiver for Another No Patient/Family Preference Custodial Facility Barriers to Discharge No Discharge Plan Custodial Facility Transportation Arrangement Facility Referrals Initiated Custodial Has Agency SNF been contacted Yes Review Status In Process Next Review Type Continued Stay Review
--- NOTE | 2021-12-27 14:39 | PT-IP ANOTE ---
Attempted to see pt at 14:38, pt reporting fatigue and would like to rest prior to d/c ~3 pm to SNF.
--- NOTE | 2021-12-27 15:53 | PC.NURSE ---
Discharge Note Patient A&O, VSS, RA, no complaints of pain/discomfort. No nausea/vomiting post meals. Patient agreeable to discharge back to [facility]. Report given to facility nurse. PIV/TELE discontinued. All belongings packed and given to patient, along with discharge packet and home medications from pharmacy. Patient left via wheelchair accompanied by facility staff.
== END 2021-12-27 15:40 ==
LOC: ED 10:54 → AC 14:22
PROVIDERS: Admitting Provider Internal Medicine; Emergency Provider Emergency Medicine; Referring Provider Emergency Medicine; Visit Provider Internal Medicine
DX: K56.7 Ileus, unspecified (principal); Z94.2 Lung transplant status; I25.10 Atherosclerotic heart disease of native coronary artery without angina pectoris; I10 Essential (primary) hypertension; E78.5 Hyperlipidemia, unspecified; Z86.16 Personal history of COVID-19; E11.9 Type 2 diabetes mellitus without complications; K91.89 Other postprocedural complications and disorders of digestive system; Z79.84 Long term (current) use of oral hypoglycemic drugs; Z20.822 Contact with and (suspected) exposure to COVID-19
CPT/HCPCS: 36415; 74019; 74177; 80053; 81003; 81015; 82962; 83036; 83690; 85025; 87635; 93005; 94760; 96365; 96366; 96372; 96375; 96376; 97161; 97165; 99284; C9803; G0378; C9113; J0696; J1650; J2405; J7507; Q9967

== ENCOUNTER → 2022-02-16 13:06 | Outpatient (CLI) | payer MEDICARE, SELFPAY ==
[2021-12-26 16:33] VITALS: BMI 27.4
[2022-02-16 14:10] LABS: COVID19 -Nasal RAPID Negative (Negative)
== END ==
PROVIDERS: Referring Provider Internal Medicine; Visit Provider Internal Medicine
DX: Z20.822 Contact with and (suspected) exposure to COVID-19 (principal)
CPT/HCPCS: 87635; C9803

== ENCOUNTER → 2022-02-17 06:37 | Outpatient (CLI) | payer MEDICARE, SELFPAY ==
[2021-12-26 16:33] VITALS: BMI 27.4
--- NOTE | 2022-02-25 10:11 | PM.PFT.1 ---
Pulmonary Function Test Referral & Results Date Patient Seen: 02/17/22 Requesting provider: Jorge Orta Results: The spirometry demonstrates an FVC of 3.37 L which is 86% of predicted. The FEV1 was measured at 2.92 L which is 106% of predicted. The FEV1/FVC ratio was 87 which is 122% of predicted. Interpretation: This study demonstrates normal forced spirometry Compared to PFTs performed in August 2021, current study is unchanged
== END ==
PROVIDERS: Referring Provider Internal Medicine Pulmonary Disease; Visit Provider Internal Medicine Pulmonary Disease
DX: Z94.2 Lung transplant status (principal); N18.32 Chronic kidney disease, stage 3b; D64.9 Anemia, unspecified
CPT/HCPCS: 36415; 80053; 80197; 82306; 82728; 83540; 83550; 83735; 83970; 84100; 85025; 87497; 94010

== ENCOUNTER → 2022-02-17 06:46 | Outpatient (CLI) | payer MEDICARE, SELFPAY ==
[2021-12-26 16:33] VITALS: BMI 27.4
[2022-02-17 07:54] LABS: Add Manual Diff / Slide Review NO; Basophils Absolute Auto 0 /uL (0-100); Basophils Percent Auto 0.6 % (0-2); Eosinophils Absolute Auto 0 /uL (0-450); Eosinophils Percent Auto 0.4 % (2-4); Hematocrit 28.8 % (41-53); Hemoglobin 9.9 g/dL (13.5-17.5); Lymphocytes Absolute Auto 2300 /uL (1100-4500); Lymphocytes Percent Auto 29.1 % (25-40); Mean Corpuscular HGB Conc 34.2 % (30-36); Mean Corpuscular Hemoglobin 34.3 PG (26-34); Mean Corpuscular Volume 100.1 fL (80-100); Monocytes Absolute Auto 1000 /uL (0-900); Monocytes Percent Auto 12.8 % (3-14); Neutrophils Absolute Auto 4500 /uL (1500-7000); Neutrophils Percent Auto 57.1 % (50-75); Platelet Count 164 X10^3/uL (150-400); Red Blood Cell Count 2.88 X10^6/uL (4.5-5.9); Red Cell Distribution Width 14.8 % (11.6-14.8); White Blood Cell Count 7.9 X10^3/uL (4.5-11.0)
[2022-02-17 10:16] LABS: Vitamin D 25 Hydroxy (D3) 106 ng/mL (30.0-100.0)
[2022-02-17 10:52] LABS: Blood Urea Nitrogen 37 mg/dL (9-20); Carbon Dioxide 25 mmol/L (22-32); Chloride 106 mmol/L (98-107); Potassium 4.1 mmol/L (3.4-5.1); Sodium 138 mmol/L (137-145)
[2022-02-17 10:53] LABS: Alanine Aminotransferase 18 IU/L (<50); Albumin 3.6 g/dL (3.5-5.0); Albumin Globulin Ratio 1.2 (1.0-2.8); Alkaline Phosphatase 100 U/L (38-126); Aspartate Aminotransferase 30 IU/L (17-59); BUN Creatinine Ratio 19.8 (6-22); Bilirubin Total 0.4 mg/dL (0.2-1.3); Calcium 9.5 mg/dL (8.4-10.2); Estimated Glomerular Filt Rate 35 mL/min (>60); Globulin 2.9 g/dL (1.7-4.1); Glucose 109 mg/dL (80-110); HEMOLYSIS < 15 (0-50); Phosphorous 3.6 mg/dL (2.3-3.7); Total Protein 6.5 g/dL (6.3-8.2)
[2022-02-17 10:54] LABS: Ferritin 91 ng/mL (18-464)
[2022-02-17 15:09] LABS: Tacrolimus 3.8 ng/mL (2.0-20.0)
[2022-02-18 07:25] LABS: Parathyroid Hormone Int 21 pg/mL (15-65)
[2022-02-19 15:17] LABS: HEMOLYSIS < 15 (0-50); Iron 54 ug/dL (49-181)
[2022-02-19 15:28] LABS: Percent Iron Saturation 17 % (20-50); Total Iron Binding Capacity 315 ug/dL (261-462); Transferrin 230 mg/dL (206-381)
== END ==
PROVIDERS: Internal Medicine Pulmonary Disease; Referring Provider Internal Medicine Nephrology; Visit Provider Internal Medicine Nephrology
DX: N18.32 Chronic kidney disease, stage 3b (principal); D64.9 Anemia, unspecified; Z94.2 Lung transplant status
CPT/HCPCS: 36415; 80053; 80197; 82306; 82728; 83540; 83550; 83735; 83970; 84100; 85025; 87497

== ENCOUNTER → 2022-03-11 07:44 | Outpatient (CLI) | payer MEDICARE, SELFPAY ==
[2021-12-26 16:33] VITALS: BMI 27.4
[2022-03-11 09:37] LABS: Add Manual Diff / Slide Review NO; Basophils Absolute Auto 0 /uL (0-100); Basophils Percent Auto 0.6 % (0-2); Eosinophils Absolute Auto 0 /uL (0-450); Eosinophils Percent Auto 0.6 % (2-4); Hematocrit 28.2 % (41-53); Hemoglobin 9.8 g/dL (13.5-17.5); Lymphocytes Absolute Auto 2200 /uL (1100-4500); Lymphocytes Percent Auto 28.1 % (25-40); Mean Corpuscular HGB Conc 34.8 % (30-36); Mean Corpuscular Hemoglobin 34.8 PG (26-34); Monocytes Absolute Auto 1400 /uL (0-900); Neutrophils Absolute Auto 4200 /uL (1500-7000); Neutrophils Percent Auto 52.7 % (50-75); Platelet Count 206 X10^3/uL (150-400); Red Blood Cell Count 2.82 X10^6/uL (4.5-5.9); Red Cell Distribution Width 14.2 % (11.6-14.8); White Blood Cell Count 7.9 X10^3/uL (4.5-11.0)
[2022-03-11 11:14] LABS: Folate > 20.0 ng/mL (2.76-20.0); Vitamin B12 988 pg/mL (239-931)
== END ==
PROVIDERS: Referring Provider Internal Medicine Nephrology; Visit Provider Internal Medicine Nephrology
DX: N18.32 Chronic kidney disease, stage 3b (principal); D63.1 Anemia in chronic kidney disease
CPT/HCPCS: 36415; 82607; 82746; 85025

== ENCOUNTER → 2022-04-28 07:12 | Outpatient (CLI) | payer MEDICARE, SELFPAY ==
[2021-12-26 16:33] VITALS: BMI 27.4
[2022-04-28 08:30] LABS: Add Manual Diff / Slide Review NO; Basophils Absolute Auto 0 /uL (0-100); Basophils Percent Auto 0.2 % (0-2); Eosinophils Absolute Auto 0 /uL (0-450); Eosinophils Percent Auto 0.3 % (2-4); Hematocrit 26.2 % (41-53); Hemoglobin 8.9 g/dL (13.5-17.5); Lymphocytes Absolute Auto 2300 /uL (1100-4500); Lymphocytes Percent Auto 16.7 % (25-40); Mean Corpuscular Hemoglobin 33.3 PG (26-34); Mean Corpuscular Volume 97.9 fL (80-100); Monocytes Absolute Auto 1100 /uL (0-900); Neutrophils Absolute Auto 10400 /uL (1500-7000); Neutrophils Percent Auto 74.8 % (50-75); Platelet Count 166 X10^3/uL (150-400); Red Blood Cell Count 2.68 X10^6/uL (4.5-5.9); Red Cell Distribution Width 13.5 % (11.6-14.8); White Blood Cell Count 13.9 X10^3/uL (4.5-11.0)
[2022-04-28 08:53] LABS: Alanine Aminotransferase 18 IU/L (<50); Albumin 3.1 g/dL (3.5-5.0); Albumin Globulin Ratio 1.2 (1.0-2.8); Alkaline Phosphatase 98 U/L (38-126); Aspartate Aminotransferase 24 IU/L (17-59); BUN Creatinine Ratio 20.2 (6-22); Bilirubin Total 0.4 mg/dL (0.2-1.3); Blood Urea Nitrogen 50 mg/dL (9-20); Calcium 9.1 mg/dL (8.4-10.2); Carbon Dioxide 26 mmol/L (22-32); Chloride 105 mmol/L (98-107); Estimated Glomerular Filt Rate 25 mL/min (>60); Globulin 2.6 g/dL (1.7-4.1); Glucose 128 mg/dL (80-110); HEMOLYSIS < 15 (0-50); Magnesium 2.4 mg/dL (1.6-2.3); Phosphorous 3.6 mg/dL (2.3-3.7); Potassium 4.4 mmol/L (3.4-5.1); Sodium 136 mmol/L (137-145); Total Protein 5.7 g/dL (6.3-8.2)
[2022-04-29 09:36] LABS: Tacrolimus 4.9 ng/mL (2.0-20.0)
[2022-05-01 06:34] LABS: CMV DNA, Quant Real Time PCR Negative (Negative)
== END ==
PROVIDERS: PCP Internal Medicine; Referring Provider Internal Medicine Pulmonary Disease; Visit Provider Internal Medicine Pulmonary Disease
DX: E83.42 Hypomagnesemia (principal); Z94.2 Lung transplant status
CPT/HCPCS: 36415; 80053; 80197; 83735; 84100; 85025; 87497

== ENCOUNTER → 2022-05-06 07:48 | Outpatient (CLI) | payer MEDICARE, SELFPAY ==
[2021-12-26 16:33] VITALS: BMI 27.4
[2022-05-06 09:23] LABS: Add Manual Diff / Slide Review NO; Basophils Absolute Auto 100 /uL (0-100); Basophils Percent Auto 0.7 % (0-2); Eosinophils Absolute Auto 100 /uL (0-450); Hematocrit 27.9 % (41-53); Hemoglobin 9.4 g/dL (13.5-17.5); Lymphocytes Absolute Auto 2600 /uL (1100-4500); Lymphocytes Percent Auto 30.5 % (25-40); Mean Corpuscular HGB Conc 33.7 % (30-36); Mean Corpuscular Volume 98.1 fL (80-100); Monocytes Absolute Auto 700 /uL (0-900); Neutrophils Absolute Auto 5100 /uL (1500-7000); Neutrophils Percent Auto 59.8 % (50-75); Platelet Count 213 X10^3/uL (150-400); Red Blood Cell Count 2.85 X10^6/uL (4.5-5.9); Red Cell Distribution Width 13.3 % (11.6-14.8); White Blood Cell Count 8.6 X10^3/uL (4.5-11.0)
[2022-05-06 09:34] LABS: HEMOLYSIS < 15 (0-50); Iron 61 ug/dL (49-181)
[2022-05-06 09:36] LABS: Albumin 3.4 g/dL (3.5-5.0); BUN Creatinine Ratio 18.4 (6-22); Blood Urea Nitrogen 43 mg/dL (9-20); Calcium 8.9 mg/dL (8.4-10.2); Carbon Dioxide 24 mmol/L (22-32); Chloride 107 mmol/L (98-107); Estimated Glomerular Filt Rate 27 mL/min (>60); Glucose 105 mg/dL (80-110); HEMOLYSIS < 15 (0-50); Phosphorous 4.3 mg/dL (2.3-3.7); Potassium 4.6 mmol/L (3.4-5.1); Sodium 135 mmol/L (137-145)
[2022-05-06 09:46] LABS: Percent Iron Saturation 19 % (20-50); Total Iron Binding Capacity 329 ug/dL (261-462); Transferrin 223 mg/dL (206-381)
[2022-05-06 10:11] LABS: Ferritin 87 ng/mL (18-464)
== END ==
PROVIDERS: PCP Internal Medicine; Referring Provider Internal Medicine Nephrology; Visit Provider Internal Medicine Nephrology
DX: N18.32 Chronic kidney disease, stage 3b (principal); D63.1 Anemia in chronic kidney disease
CPT/HCPCS: 36415; 80069; 82728; 83540; 83550; 85025

== ENCOUNTER → 2022-05-10 10:14 | Outpatient (CLI) | payer MEDICARE, SELFPAY ==
[2021-12-26 16:33] VITALS: BMI 27.4
--- NOTE | 2022-05-10 | DI.CT.S_ITS ---
PROCEDURE: CT CHEST ABDOMEN WO CON INDICATIONS: Abnormal weight loss;Lung disorder TECHNIQUE: After the administration of oral contrast, 5 mm thick sections acquired from the pulmonary apices to the iliac crests. 5 mm thick coronal and sagittal reformats acquired, with additional 7 mm coronal MIP reformats through the lungs. For radiation dose reduction, the following was used: automated exposure control, adjustment of mA and/or kV according to patient size. No intravenous contrast administered. COMPARISON: [facility], CT, CT ANGIO CHEST PE PROTOCOL, 09/17/2021, 0:21. [facility], CT, CT ABDOMEN PELVIS W CON, 12/26/2021, 12:33. FINDINGS: Image quality: Excellent. CHEST: Lungs and pleura: Patchy bilateral ground-glass opacities at the lung bases have mildly improved compared to the imaged lung bases from the most recent prior exam. Overall, there has been significant interval improvement in bilateral pulmonary opacities since the earlier CT angiogram of the chest. There are mild residual bilateral opacities present most of which are linear/curvilinear in appearance, although a mild degree of ground-glass opacity remains. No pleural effusion or pneumothorax. Mediastinum: Mitral annular calcifications. Multivessel coronary artery calcifications and/or stents. No pericardial effusion. No mediastinal adenopathy by size criteria. A few calcified mediastinal lymph nodes are present, likely related to prior granulomatous disease. The main pulmonary artery is enlarged measuring 3.2 cm. Wall thickening of the lower esophagus persists. Chest wall: No axillary or supraclavicular adenopathy by size criteria. ABDOMEN: Solid organs: Liver is normal in size. Gallbladder is surgically absent . Pancreas is normal in contours. Spleen is normal in size. No adrenal nodules. Both kidneys are normal in size, without hydronephrosis or nephrolithiasis. Bilateral renal cortical cysts are present as before without highly suspicious features identified on this exam. Peritoneum and bowel: Visualized large and small bowel is non-dilated. No free air or substantial free fluid. Nodes and vessels: No retroperitoneal or mesenteric adenopathy by size criteria. Aorta and inferior vena cava are normal in caliber. Miscellaneous: Multilevel degenerative change of the visualized spine. Similar appearance of the previously demonstrated L1 compression fracture. Lumbar spine fusion changes present as before. Prior sternotomy. IMPRESSION: 1. Continued improvement in bilateral pulmonary opacities, overall significant interval improvement since 09/07/2021. Mild residual opacities persist, nonspecific, likely a combination of scarring, atelectasis, possibly also minimal residual airspace disease. 2. Wall thickening of the lower esophagus is present, nonspecific. Correlation for esophagitis, such as reflux esophagitis, could be helpful. 3. Enlargement of the main pulmonary artery, a finding which can be seen in the setting of pulmonary hypertension. Dictated by: Eliceo Davison M.D. on 05/11/2022 at 13:20 Approved by: Eliceo Davison M.D. on 05/11/2022 at 13:36
--- NOTE | 2022-05-10 | DI.RAD.S_ITS ---
PROCEDURE: FL BARIUM SWALLOW INDICATIONS: Abnormal weight loss;Lung disorder COMPARISON: [facility], CT, CT CHEST ABDOMEN WO CON, 05/10/2022, 11:07. FINDINGS: Function: There is normal esophageal peristalsis. No elicited gastroesophageal reflux. There is normal transit of a calibrated barium tablet through the esophagus into the stomach. Morphology: Air-contrast images demonstrate normal mucosal morphology. Single contrast views show no esophageal strictures, extrinsic mass effects, or diverticula. Limited images of the stomach demonstrate normal appearance. IMPRESSION: Normal barium esophagram. Dictated by: Levon Olmedo M.D. on 05/11/2022 at 16:59 Approved by: Levon Olmedo M.D. on 05/11/2022 at 17:00
== END ==
PROVIDERS: PCP Internal Medicine; Referring Provider Internal Medicine Pulmonary Disease; Visit Provider Internal Medicine Pulmonary Disease
DX: J98.4 Other disorders of lung (principal); R63.4 Abnormal weight loss; R93.3 Abnormal findings on diagnostic imaging of other parts of digestive tract; I77.89 Other specified disorders of arteries and arterioles
CPT/HCPCS: 71250; 74150; 74220

== ENCOUNTER → 2022-06-06 10:15 | Outpatient (CLI) | payer MEDICARE, SELFPAY ==
[2021-12-26 16:33] VITALS: BMI 27.4
[2022-06-06 11:15] LABS: COVID19 -Nasal RAPID Negative (Negative)
== END ==
PROVIDERS: PCP Internal Medicine; Visit Provider Surgery
DX: Z20.822 Contact with and (suspected) exposure to COVID-19 (principal); Z01.812 Encounter for preprocedural laboratory examination
CPT/HCPCS: 87635; C9803

== ENCOUNTER → 2022-06-21 07:03 | Outpatient (CLI) | payer MEDICARE, SELFPAY ==
[2021-12-26 16:33] VITALS: BMI 27.4
[2022-06-21 08:04] LABS: Add Manual Diff / Slide Review NO; Basophils Absolute Auto 100 /uL (0-100); Basophils Percent Auto 0.9 % (0-2); Eosinophils Absolute Auto 100 /uL (0-450); Eosinophils Percent Auto 1.1 % (2-4); Hemoglobin 9.8 g/dL (13.5-17.5); Lymphocytes Absolute Auto 1900 /uL (1100-4500); Lymphocytes Percent Auto 25.6 % (25-40); Mean Corpuscular HGB Conc 33.6 % (30-36); Mean Corpuscular Hemoglobin 33.5 PG (26-34); Mean Corpuscular Volume 99.6 fL (80-100); Monocytes Absolute Auto 900 /uL (0-900); Monocytes Percent Auto 12.4 % (3-14); Neutrophils Absolute Auto 4500 /uL (1500-7000); Platelet Count 183 X10^3/uL (150-400); Red Blood Cell Count 2.91 X10^6/uL (4.5-5.9); Red Cell Distribution Width 15.8 % (11.6-14.8); White Blood Cell Count 7.5 X10^3/uL (4.5-11.0)
[2022-06-21 08:31] LABS: Alanine Aminotransferase 17 IU/L (<50); Albumin 3.1 g/dL (3.5-5.0); Albumin Globulin Ratio 1.1 (1.0-2.8); Alkaline Phosphatase 95 U/L (38-126); Aspartate Aminotransferase 26 IU/L (17-59); BUN Creatinine Ratio 22.5 (6-22); Bilirubin Total 0.2 mg/dL (0.2-1.3); Blood Urea Nitrogen 49 mg/dL (9-20); Calcium 9.5 mg/dL (8.4-10.2); Carbon Dioxide 25 mmol/L (22-32); Chloride 108 mmol/L (98-107); Estimated Glomerular Filt Rate 29 mL/min (>60); Globulin 2.7 g/dL (1.7-4.1); Glucose 93 mg/dL (80-110); HEMOLYSIS < 15 (0-50); Phosphorous 3.5 mg/dL (2.3-3.7); Potassium 4.3 mmol/L (3.4-5.1); Sodium 142 mmol/L (137-145); Total Protein 5.8 g/dL (6.3-8.2)
[2022-06-22 10:01] LABS: Tacrolimus 2.7 ng/mL (2.0-20.0)
[2022-06-24 08:36] LABS: CMV DNA, Quant Real Time PCR Negative (Negative)
== END ==
PROVIDERS: PCP Internal Medicine; Referring Provider Internal Medicine Critical Care Medicine; Visit Provider Internal Medicine Critical Care Medicine
DX: Z94.2 Lung transplant status (principal)
CPT/HCPCS: 36415; 80053; 80197; 83735; 84100; 85025; 87497

== ENCOUNTER → 2022-07-03 10:16 | Outpatient (CLI) | payer MEDICARE, SELFPAY ==
[2021-12-26 16:33] VITALS: BMI 27.4
[2022-07-03 12:13] LABS: COVID19 -Nasal RAPID Negative (Negative)
== END ==
PROVIDERS: PCP Internal Medicine; Visit Provider Surgery
DX: Z20.822 Contact with and (suspected) exposure to COVID-19 (principal); Z01.812 Encounter for preprocedural laboratory examination
CPT/HCPCS: 87635; C9803

== ENCOUNTER 2022-07-04 14:42 | Day surgery (SDC) | payer MEDICARE, SELFPAY ==
[2021-12-26 16:33] VITALS: BMI 27.4
--- NOTE | 2022-07-04 14:57 | PM.HP.1 ---
History of Present Illness History of Present Illness Date Patient Seen: 07/04/22 Time Patient Seen: 14:57 Chief complaint: SDC Narrative: 81M hx of lung transplant with worsening GERD here for diagnostic EGD. Please refer to H&P from 05/2022 for further detail. No significant interval changes in health. Patient History Medical History Anemia Coronary artery disease Diabetes Hearing impaired Hyperlipidemia Hypertension Hypothyroid IPF (idiopathic pulmonary fibrosis) Tubular adenoma of colon Surgical History H/O lung transplant (2009) Hx of bilateral cataract extraction Hx of cholecystectomy Family & Social History Family History Father Patient denies significant medical history Mother Patient denies significant medical history Social History: household members spouse Tobacco & Substance use: Tobacco type pipe Smoking Status Former smoker alcohol intake current alcohol intake frequency holiday/special occasion Substance Use Type does not use Meds Home Medications and Allergies Home Medications Medication Instructions Recorded Confirmed Type azithromycin 500 mg tablet 500 mg PO DIRECTED 09/18/20 05/04/22 History carvedilol 3.125 mg tablet 3.125 mg PO BID 09/18/20 05/04/22 History itraconazole 100 mg capsule 100 mg PO BID 09/18/20 05/04/22 History levothyroxine 137 mcg tablet 150 mcg PO QAM 09/18/20 05/04/22 History prednisone 5 mg tablet 5 mg PO DAILY 09/18/20 05/04/22 History sulfamethoxazole 800 0.5 tab PO DIRECTED 09/18/20 05/04/22 History mg-trimethoprim 160 mg tablet tacrolimus 0.5 mg capsule, 0.5 mg PO QPM 09/18/20 05/04/22 History immediate-release tacrolimus 1 mg capsule, 1 mg PO QAM 09/18/20 05/04/22 History immediate-release valganciclovir 450 mg tablet 450 mg PO DAILY 09/18/20 05/04/22 History acetaminophen 500 mg capsule 1,000 mg PO TID 12/15/21 05/04/22 History docusate sodium 100 mg capsule 100 mg PO BID #20 caps 12/23/21 05/04/22 Rx Allergies Allergy/AdvReac Type Severity Reaction Status Date / Time No Known Drug Allergies Allergy Verified 07/04/22 15:21 Exam Narrative Exam Narrative: Gen-elderly man alert and oriented Chest-Non labored reso Abdomen-Soft non tender Assessment & Plan Assessment and plan (1) [place]: Status: Acute Assessment & Plan narrative: 81M with worsening GERD hx lung transplant here for diagnostic EGD. Overview the procedure was discussed with the patient. Procedural risks including bleeding, infection, intestinal perforation, missed diagnosis we were discussed. His questions have been answered and he is in agreement with this plan Time Spent With Patient Critical Care time: I spent a total of [] minutes of critical care time on this patient's care today; this time is exclusive of procedural time.
[2022-07-04 15:09] VITALS: BP 140/76; PULSE 87; RESP 16; TEMP 36.2; O2SAT 100; BMI 27.1
[2022-07-04] MEDS: LACTATED RINGERS 1,000 ML 200 ML IV (15:23)
--- NOTE | 2022-07-04 16:01 | PM.OP.EGD ---
Operative Date/Time/Diagnoses Date of procedure: 07/04/22 Time of procedure: 16:01 Pre-op diagnosis: GERD Post-op diagnosis: other (Bile acid reflux) Procedure & Clinicians Study performed: Esophagoduodenoscopy Same procedure as scheduled: Yes Indications: Worsening reflux Surgeon: Torres Munoz Procedure Notes Procedure in detail: Patient placed in left lateral decubitus position. Time out was performed. Procedural sedation was administered by Anesthesia l. A bite block was placed. the scope was inserted into the mouth and advanced through the esophagus and into the stomach. The stomach was notable for moderate volume of bile despite being NPO. There were no gastric ulcers or significant gastritis. The pylorus was intubated and the duodenum was normal to the 2nd portion. The scope was retroflexed within the stomach and there was a small hiatal hernia. The scope was withdrawn into the esophagus the Z line was seen at 35 cm from the incisions. There was no Mckeon's esophagitis or masses or strictures. Stomach was desufflated and scope removed. Patient tolerated procedure well. Specimen(s): none sent Complications: none Impression: Bile reflux Post-procedure Recommendations: Reflux diet and Start medication(s) (Omeprazole 20 mg twice daily) Disposition: same day surgery
[2022-07-04 16:06] VITALS: BP 92/56; PULSE 62; RESP 12; TEMP 36.1; O2SAT 98
[2022-07-04 16:11] VITALS: BP 111/69; PULSE 57; RESP 12; O2SAT 98
[2022-07-04 16:16] VITALS: BP 124/75; PULSE 58; RESP 11; O2SAT 98
[2022-07-04 16:26] VITALS: BP 141/74; PULSE 65; RESP 11; TEMP 36.2; O2SAT 100
[2022-07-04 16:34] VITALS: BP 129/81; PULSE 65; RESP 14; TEMP 36.1; O2SAT 98
== END 2022-07-04 16:47 | disposition home or self-care (01) ==
PROVIDERS: PCP Internal Medicine; Referring Provider Surgery; Visit Provider Surgery
PROC: 0DJ08ZZ Inspection of Upper Intestinal Tract, Via Natural or Artificial Opening Endoscopic (ICD-10-PCS; CPT 43235; principal; 2022-07-04 16:00)
DX: K21.9 Gastro-esophageal reflux disease without esophagitis (principal); Z94.2 Lung transplant status; K44.9 Diaphragmatic hernia without obstruction or gangrene
CPT/HCPCS: 43235; J2250; J3010

== ENCOUNTER → 2022-08-14 06:46 | Outpatient (CLI) | payer MEDICARE, SELFPAY ==
[2021-12-26 16:33] VITALS: BMI 27.4
[2022-08-14 07:59] LABS: Add Manual Diff / Slide Review NO; Basophils Absolute Auto 100 /uL (0-100); Basophils Percent Auto 0.8 % (0-2); Eosinophils Absolute Auto 100 /uL (0-450); Eosinophils Percent Auto 1.8 % (2-4); Hematocrit 28.8 % (41-53); Hemoglobin 9.8 g/dL (13.5-17.5); Lymphocytes Absolute Auto 1700 /uL (1100-4500); Lymphocytes Percent Auto 21.3 % (25-40); Mean Corpuscular HGB Conc 34.2 % (30-36); Mean Corpuscular Hemoglobin 34.3 PG (26-34); Mean Corpuscular Volume 100.5 fL (80-100); Monocytes Absolute Auto 1000 /uL (0-900); Monocytes Percent Auto 13.1 % (3-14); Neutrophils Absolute Auto 4900 /uL (1500-7000); Platelet Count 191 X10^3/uL (150-400); Red Blood Cell Count 2.86 X10^6/uL (4.5-5.9); Red Cell Distribution Width 15.5 % (11.6-14.8); White Blood Cell Count 7.8 X10^3/uL (4.5-11.0)
[2022-08-14 08:19] LABS: Iron 34 ug/dL (49-181)
[2022-08-14 08:21] LABS: Alanine Aminotransferase 31 IU/L (<50); Albumin 3.2 g/dL (3.5-5.0); Albumin Globulin Ratio 1.1 (1.0-2.8); Alkaline Phosphatase 154 U/L (38-126); Aspartate Aminotransferase 31 IU/L (17-59); BUN Creatinine Ratio 20.1 (6-22); Bilirubin Total 0.2 mg/dL (0.2-1.3); Blood Urea Nitrogen 39 mg/dL (9-20); Calcium 8.4 mg/dL (8.4-10.2); Carbon Dioxide 24 mmol/L (22-32); Chloride 108 mmol/L (98-107); Estimated Glomerular Filt Rate 34 mL/min (>60); Globulin 2.8 g/dL (1.7-4.1); Glucose 118 mg/dL (80-110); HEMOLYSIS < 15 (0-50); Magnesium 2.3 mg/dL (1.6-2.3); Phosphorous 3.5 mg/dL (2.3-3.7); Potassium 4.7 mmol/L (3.4-5.1); Sodium 139 mmol/L (137-145)
[2022-08-14 08:32] LABS: Total Iron Binding Capacity 267 ug/dL (261-462)
[2022-08-14 08:55] LABS: Ferritin 449 ng/mL (18-464)
[2022-08-15 10:12] LABS: Tacrolimus None Detected ng/mL (2.0-20.0)
[2022-08-16 08:48] LABS: Parathyroid Hormone Int 30 pg/mL (15-65)
[2022-08-16 15:16] LABS: CMV DNA, Quant Real Time PCR Negative (Negative)
== END ==
PROVIDERS: PCP Internal Medicine; Referring Provider Internal Medicine Nephrology; Visit Provider Internal Medicine Nephrology
DX: N18.32 Chronic kidney disease, stage 3b (principal); D63.1 Anemia in chronic kidney disease; Z94.2 Lung transplant status
CPT/HCPCS: 36415; 80053; 80069; 80197; 82728; 83540; 83550; 83735; 83970; 85025; 87497

== ENCOUNTER → 2022-08-28 08:51 | Outpatient (CLI) | payer MEDICARE, SELFPAY ==
[2021-12-26 16:33] VITALS: BMI 27.4
[2022-08-29 05:35] LABS: Tacrolimus 2.7 ng/mL (2.0-20.0)
== END ==
PROVIDERS: PCP Internal Medicine; Referring Provider Internal Medicine Nephrology; Visit Provider Internal Medicine Nephrology
DX: Z94.2 Lung transplant status (principal)
CPT/HCPCS: 36415; 80197

== ENCOUNTER → 2022-09-13 08:15 | Outpatient (CLI) | payer MEDICARE, SELFPAY ==
[2021-12-26 16:33] VITALS: BMI 27.4
[2022-09-14 07:11] LABS: Tacrolimus 3.6 ng/mL (2.0-20.0)
== END ==
PROVIDERS: PCP Internal Medicine; Referring Provider Internal Medicine Critical Care Medicine; Visit Provider Internal Medicine Critical Care Medicine
DX: Z94.2 Lung transplant status (principal)
CPT/HCPCS: 36415; 80197

== ENCOUNTER → 2022-09-23 08:41 | Outpatient (CLI) | payer MEDICARE, SELFPAY ==
[2021-12-26 16:33] VITALS: BMI 27.4
[2022-09-23 10:19] LABS: Erythrocyte Sedimentation Rate 77 MM/HR (0-15)
[2022-09-23 10:34] LABS: Alanine Aminotransferase 24 IU/L (<50); Albumin 2.3 g/dL (3.5-5.0); Albumin Globulin Ratio 0.9 (1.0-2.8); Alkaline Phosphatase 120 U/L (38-126); Aspartate Aminotransferase 22 IU/L (17-59); BUN Creatinine Ratio 25.6 (6-22); Bilirubin Total 0.3 mg/dL (0.2-1.3); Blood Urea Nitrogen 63 mg/dL (9-20); Calcium 8.5 mg/dL (8.4-10.2); Carbon Dioxide 18 mmol/L (22-32); Chloride 106 mmol/L (98-107); Estimated Glomerular Filt Rate 25 mL/min (>60); Globulin 2.7 g/dL (1.7-4.1); Glucose 163 mg/dL (80-110); HEMOLYSIS < 15 (0-50); Potassium 4.4 mmol/L (3.4-5.1); Sodium 134 mmol/L (137-145)
[2022-09-23 10:48] LABS: C-Reactive Protein Quant 17.6 mg/dL (<1.0)
== END ==
PROVIDERS: PCP Internal Medicine; Referring Provider Physician Assistant; Visit Provider Physician Assistant
DX: M47.818 Spondylosis without myelopathy or radiculopathy, sacral and sacrococcygeal region (principal)
CPT/HCPCS: 36415; 80053; 85651; 86140

== ENCOUNTER → 2022-09-26 08:27 | Outpatient (CLI) | payer MEDICARE, SELFPAY ==
[2021-12-26 16:33] VITALS: BMI 27.4
[2022-09-26 09:14] LABS: Hematocrit 26.5 % (41-53); Hemoglobin 8.8 g/dL (13.5-17.5); Mean Corpuscular HGB Conc 33.4 % (30-36); Mean Corpuscular Hemoglobin 33.3 PG (26-34); Mean Corpuscular Volume 99.9 fL (80-100); Platelet Count 306 X10^3/uL (150-400); Red Blood Cell Count 2.65 X10^6/uL (4.5-5.9); White Blood Cell Count 14.7 X10^3/uL (4.5-11.0)
[2022-09-26 09:15] LABS: Add Manual Diff / Slide Review YES
[2022-09-26 09:26] LABS: Neutrophils Absolute Manual 10290 /uL (3000-5900); Total Cells Counted 100
[2022-09-26 09:27] LABS: Anisocytosis 1+; Poikilocytosis 2+
== END ==
PROVIDERS: PCP Internal Medicine; Referring Provider Physician Assistant; Visit Provider Physician Assistant
DX: M47.818 Spondylosis without myelopathy or radiculopathy, sacral and sacrococcygeal region (principal)
CPT/HCPCS: 85007; 85025

== ENCOUNTER → 2022-10-10 11:07 | Outpatient (CLI) | payer MEDICARE, OTHER, SELFPAY ==
[2021-12-26 16:33] VITALS: BMI 27.4
--- NOTE | 2022-10-10 | DI.US.S_ITS ---
PROCEDURE: US ABDOMEN COMPLETE INDICATIONS: GENERALIZED ABD PAIN TECHNIQUE: Real-time scanning was performed of the abdominal and retroperitoneal organs, with image documentation. COMPARISON: [facility], CT, CT CHEST ABDOMEN WO CON, 05/10/2022, 11:07. [facility], US, ABDOMEN COMPLETE, 02/17/2009, 1:02. FINDINGS: Liver: Liver is normal in size and homogeneous in echotexture. Gallbladder: Removed. Biliary ducts: Intrahepatic bile ducts are non-dilated. Extrahepatic bile duct caliber measures 6 mm. Normal is 6-7 mm or less in diameter, or 10 mm or less post-cholecystectomy. Pancreas: Visualized portions of the pancreas are sonographically normal. Spleen: Spleen is normal in size and homogeneous in echotexture. Kidneys: Kidneys are normal in size and echotexture. Right kidney measures 11.6 cm long; left kidney measures 12.1 cm long. No hydronephrosis or nephrolithiasis. No solid masses. 2 right-sided renal cysts are seen that measure up to 3.6 cm. Aorta: Visualized aorta is normal in caliber at less than 3 cm. Iliacs: Proximal common iliac arteries are normal in caliber at less than 2.5 cm. IVC: Intrahepatic inferior vena cava is patent. Miscellaneous: No free abdominal fluid. IMPRESSION: Status post cholecystectomy, without biliary dilatation. A cause of abdominal pain is not observed. Dictated by: Yazan Mcallister M.D. on 10/10/2022 at 12:31 Approved by: Yazan Mcallister M.D. on 10/10/2022 at 12:33
== END ==
PROVIDERS: PCP Internal Medicine; Referring Provider Internal Medicine Nephrology; Visit Provider Internal Medicine Nephrology
DX: R10.84 Generalized abdominal pain (principal); Z90.49 Acquired absence of other specified parts of digestive tract; N28.1 Cyst of kidney, acquired
CPT/HCPCS: 76700

== ENCOUNTER → 2022-10-19 06:57 | Outpatient (CLI) | payer MEDICARE, OTHER, SELFPAY ==
[2021-12-26 16:33] VITALS: BMI 27.4
--- NOTE | 2022-10-19 06:59 | DI.ECHO.S_ITS ---
[facility] +[facility]+ : : [address] : : : : [id number] : : : : Phone: [phone]+ Echocardiogram Report + + :Name: YIMI SINGH Study Date: 10/19/2022 Height: 70 in : :[facility] ReadingLocation: Weight: 185 lb: : Gender: Male BSA: 2.0 m2 : :: 1940 Age: 82 yrs BP: 95/57 mmHg: :Reason For Study: EDEMA : :Ordering Physician: JAMIE, : :CATHRYN Willingham Performed By: Alfreda Acevedo : :Referring: CATHRYN AYALA : + + Interpretation Summary The left ventricle is normal in size. The ejection fraction is estimated to be 60-65%. Previous LVEF 55 to 60%. Diastolic parameters suggest a pseudonormalization pattern, consistent with probable elevated filling pressures. No significant change in diastolic function. The right ventricle is mildly dilated. Visually RV function appears to be preserved however TAPSE showed possible RV dysfunction. In May 2020 TAPSE was 1.4 cm and in this study 1.3 cm. Moderate MR. Previously mild to moderate. Mild to moderate calcification of the aortic valve. There is mildly reduced leaflet mobility. The aortic valve is trileaflet. The peak aortic velocity is 2.2 m/sec. The aortic valve mean gradient is 10 mmHg. The peak aortic velocity on the previous exam was 1.7 m/sec. There is mild aortic stenosis. There is mild to moderate aortic regurgitation. Compared to the prior echo study, there has been an increase in the severity of aortic regurgitation. There is mild to moderate tricuspid regurgitation. Compared to the prior echo exam, there has been an increase in TR severity. The right ventricular systolic pressure is estimated to be at least 22 mmHg based on an estimated right atrial pressure of 3 mm Hg. Right ventricular systolic pressure may not be accurate. Procedure: A two-dimensional transthoracic echocardiogram with color flow and Doppler was performed. The study quality was technically adequate. Comparison is made with the echocardiogram of 05/26/2020. The patient was in sinus rhythm with heart rates between 71-94 bpm during the exam. Left Ventricle: There is mild concentric left ventricular hypertrophy. Proximal septal thickening is noted. The left ventricle is normal in size. There is moderate proximal septal thickening noted. There is no echo evidence for significant left ventricular outflow tract obstruction. There is no thrombus. The ejection fraction is estimated to be 60-65%. There are no focal wall motion abnormalities. Diastolic parameters suggest a pseudonormalization pattern, consistent with probable elevated filling pressures. Right Ventricle: The right ventricle is mildly dilated. Visually RV function appears to be preserved however TAPSE showed possible RV dysfunction. In May 2020 TAPSE was 1.4 cm and in this study 1.3 cm. Atria: The left atrium is severely dilated. There has been no significant change since the previous study. Right atrial size is normal. There is no Doppler evidence for an interatrial shunt. Mitral Valve: There is moderate mitral annular calcification. The mitral valve leaflets are mildly calcified. The mitral valve chordae are thickened and/or calcified. There is moderate mitral regurgitation. Compared to the prior echo study, there has been an increase in the severity of mitral regurgitation. Aortic Valve: The aortic valve is trileaflet. There is mild aortic valve sclerosis. There is mildly reduced leaflet mobility. Mild to moderate calcification of the aortic valve. The peak aortic velocity is 2.2 m/sec. The aortic valve mean gradient is 10 mmHg. The calculated aortic valve area is 1.3 cm2. The peak aortic velocity on the previous exam was 1.7 m/sec. There is mild aortic stenosis. There is mild to moderate aortic regurgitation. Compared to the prior echo study, there has been an increase in the severity of aortic regurgitation. Tricuspid Valve: The tricuspid valve is normal. There is mild to moderate tricuspid regurgitation. The right ventricular systolic pressure is estimated to be at least 22 mmHg based on an estimated right atrial pressure of 3 mm Hg. Compared to the prior echo exam, there has been an increase in TR severity. Pulmonic Valve: The pulmonic valve leaflets are thin and pliable; valve motion is normal. There is no pulmonic valvular regurgitation. Great Vessels: The aortic root is normal size. There is aortic root sclerosis/calcification. The dimensions of the ascending aorta are normal. The IVC is of normal diameter and collapses greater than 50% with a sniff. This suggests a low right atrial pressure of 3 mm Hg. Pericardium/ Pleura There is no pericardial effusion. There is no pleural effusion. MMode/2D Measurements & Calculations LVIDd: 4.6 cm LVOT diam: 2.1 cm LVIDs: 3.1 cm Ao root diam: 3.7 cm FS: 31.5 % asc Aorta Diam: 3.5 cm IVSd: 1.1 cm Ao Arch Diam (Prox Trans): 3.0 cm LVPWd: 1.0 cm LV noguera. diameter/BSA (cm/m^2): 2.3 LV sys. diameter/BSA (cm/m^2): 1.6 LA A2 area: 39.7 cm2 RA long axis: 6.3 cm LA A4 area: 34.6 cm2 RA area: 19.4 cm2 LA length (vol): 7.7 cm RA vol: 51.1 ml LA vol: 150.9 ml RA : 25.3 ml/m2 LA vol index: 74.7 ml/m2 IVC diam: 1.7 cm RVD1 (basal): 4.1 cm RVD2 (mid): 3.7 cm TAPSE: 1.3 cm Doppler Measurements & Calculations Ao V2 max: 219.9 cm/sec LVOT Max Giancralo: 87.0 cm/sec Ao V2 mean: 148.9 cm/sec LV V1 max P.0 mmHg Ao max P.3 mmHg LV V1 VTI: 20.1 cm Ao mean P.0 mmHg TAYLOR(I,D): 1.4 cm2 Ao V2 VTI: 49.9 cm TAYLOR(V,D): 1.3 cm2 sev ratio: 0.40 TAYLOR indexed to BSA (cm^2/m^2): 0.67 AI P1/2t: 471.9 msec AI dec slope: 257.8 cm/sec2 MV E max giancarlo: 83.4 cm/sec TR max giancarlo: 214.9 cm/sec MV A max giancarlo: 65.9 cm/sec TR max P.5 mmHg MV E/A: 1.3 PA V2 max: 87.4 cm/sec Med Peak E' Giancarlo: 4.3 cm/sec PA V2 mean: 63.0 cm/sec E/E' med: 19.6 PA mean P.8 mmHg Lat Peak E' Giancarlo: 9.6 cm/sec PA pr(Accel): 13.9 mmHg E/E' lat: 8.7 E/e' average: 14.2 MV dec time: 0.23 sec MVA(VTI): 2.6 cm2 MV V2 mean: 76.6 cm/sec SV(LVOT): 67.7 ml MV mean P.6 mmHg MV V2 VTI: 26.0 cm Reading Physician:02:12 PM
== END ==
PROVIDERS: PCP Internal Medicine; Referring Provider Internal Medicine Nephrology; Visit Provider Internal Medicine Nephrology
DX: R60.9 Edema, unspecified (principal); I08.3 Combined rheumatic disorders of mitral, aortic and tricuspid valves
CPT/HCPCS: 93306

== ENCOUNTER → 2022-11-02 09:07 | Outpatient (CLI) | payer MEDICARE, SELFPAY ==
[2021-12-26 16:33] VITALS: BMI 27.4
[2022-11-03 12:38] LABS: Tacrolimus 4.5 ng/mL (2.0-20.0)
== END ==
PROVIDERS: Referring Provider Internal Medicine Critical Care Medicine; Visit Provider Internal Medicine Critical Care Medicine
DX: Z94.2 Lung transplant status (principal)
CPT/HCPCS: 36415; 80197

== ENCOUNTER → 2022-12-20 09:10 | Outpatient (CLI) | payer MEDICARE, SELFPAY ==
[2021-12-26 16:33] VITALS: BMI 27.4
[2022-12-20 10:32] LABS: Hematocrit 32.2 % (41-53); Hemoglobin 10.7 g/dL (13.5-17.5); Mean Corpuscular HGB Conc 33.3 % (30-36); Mean Corpuscular Hemoglobin 33.5 PG (26-34); Mean Corpuscular Volume 100.8 fL (80-100); Platelet Count 211 X10^3/uL (150-400); Red Blood Cell Count 3.19 X10^6/uL (4.5-5.9); Red Cell Distribution Width 15.4 % (11.6-14.8); White Blood Cell Count 6.4 X10^3/uL (4.5-11.0)
[2022-12-20 10:46] LABS: Anisocytosis 1+; Neutrophils Absolute Manual 3584 /uL (3000-5900); Total Cells Counted 100
[2022-12-20 11:16] LABS: Alanine Aminotransferase 22 IU/L (<50); Albumin 3.2 g/dL (3.5-5.0); Albumin Globulin Ratio 1.3 (1.0-2.8); Alkaline Phosphatase 117 U/L (38-126); Aspartate Aminotransferase 25 IU/L (17-59); BUN Creatinine Ratio 23.1 (6-22); Bilirubin Total 0.2 mg/dL (0.2-1.3); Blood Urea Nitrogen 39 mg/dL (9-20); Calcium 8.7 mg/dL (8.4-10.2); Carbon Dioxide 25 mmol/L (22-32); Chloride 107 mmol/L (98-107); Estimated Glomerular Filt Rate 40 mL/min (>60); Globulin 2.4 g/dL (1.7-4.1); Glucose 85 mg/dL (80-110); HEMOLYSIS < 15 (0-50); Magnesium 2.4 mg/dL (1.6-2.3); Phosphorous 3.5 mg/dL (2.3-3.7); Potassium 4.7 mmol/L (3.4-5.1); Sodium 138 mmol/L (137-145); Total Protein 5.6 g/dL (6.3-8.2)
[2022-12-22 17:11] LABS: CMV DNA, Quant Real Time PCR Negative (Negative)
[2022-12-26 14:08] LABS: Tacrolimus 3.2
== END ==
PROVIDERS: PCP Family Medicine; Referring Provider Internal Medicine Critical Care Medicine; Visit Provider Internal Medicine Critical Care Medicine
DX: Z94.2 Lung transplant status (principal)
CPT/HCPCS: 36415; 80053; 80197; 83735; 84100; 85025; 87497

== ENCOUNTER → 2023-01-12 07:14 | Outpatient (CLI) | payer MEDICARE, SELFPAY ==
[2021-12-26 16:33] VITALS: BMI 27.4
[2023-01-13 09:51] LABS: x Labcorp Estim. Avg Glu (eAG) 117 mg/dL (.); x Labcorp Hemoglobin A1c 5.7 % (4.8-5.6)
== END ==
PROVIDERS: PCP Family Medicine; Referring Provider Family Medicine; Visit Provider Family Medicine
DX: E11.9 Type 2 diabetes mellitus without complications (principal)
CPT/HCPCS: 36415; 83036

== ENCOUNTER → 2023-03-26 15:04 | Outpatient (CLI) | payer MEDICARE, SELFPAY ==
[2021-12-26 16:33] VITALS: BMI 27.4
--- NOTE | 2023-03-26 15:06 | DI.RAD.S_ITS ---
PROCEDURE: XR RIBS LT MIN 3V W CXR1V INDICATIONS: Rib pain TECHNIQUE: 2 views of the left ribs were acquired, along with a single view chest. COMPARISON: [facility], CT, CT CHEST ABDOMEN WO CON, 05/10/2022, 11:07. FINDINGS: Surgical changes and devices: None. Bones and chest wall: Subtle deformity of the anterior left 10th rib may represent acute fracture. No suspicious bony lesions. Overlying soft tissues appear unremarkable. Lungs and pleura: No pleural effusions or pneumothorax. Lungs appear clear. Mediastinum: Mediastinal contours appear normal. Heart size is normal. IMPRESSION: Question acute fracture, anterior left 10th rib. Dictated by: Horace Patel M.D. on 03/26/2023 at 16:24 Approved by: Horace Patel M.D. on 03/26/2023 at 16:27
--- NOTE | 2023-03-26 15:06 | DI.RAD.S_ITS ---
PROCEDURE: XR ELBOW LT MIN 3V INDICATIONS: Elbow pain TECHNIQUE: 2 views of the elbow were acquired. COMPARISON: None. FINDINGS: Bones: No AP view provided. 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 No displaced fractures identified.. No suspicious bony lesions. Soft tissues: No elbow joint effusion. No suspicious soft tissue calcifications. IMPRESSION: No displaced fractures identified. No AP view. There is degenerative change at the elbow joint. Comment: If suspect acute fracture, consider CT. Dictated by: Horace Patel M.D. on 03/26/2023 at 16:27 Approved by: Horace Patel M.D. on 03/26/2023 at 16:28
== END ==
PROVIDERS: PCP Family Medicine; Referring Provider Nurse Practitioner Family; Visit Provider Nurse Practitioner Family
DX: R07.81 Pleurodynia (principal); M25.522 Pain in left elbow
CPT/HCPCS: 71101; 73080

== ENCOUNTER → 2023-04-30 14:02 | Outpatient (CLI) | payer MEDICARE, SELFPAY ==
[2021-12-26 16:33] VITALS: BMI 27.4
--- NOTE | 2023-04-30 14:04 | DI.RAD.S_ITS ---
PROCEDURE: XR HIP W PEL IF DONE LT 2V INDICATIONS: pain, fell about a month ago TECHNIQUE: AP pelvis with lateral view(s) of the left hip(s). COMPARISON: [facility] [place], [place], XR LUMBAR SPINE 2 OR 3 VIEWS, 10/19/2022, 14:55. FINDINGS: Bones: No fractures or dislocations. Pelvic ring appears intact. No suspicious bony lesions. Moderate to severe bilateral degenerative hip joint space narrowing. No erosions. Degenerative changes are present within the lower lumbar spine as well as partially visualized fusion rods. Soft tissues: The visualized bowel gas pattern is normal. No suspicious soft tissue calcifications. IMPRESSION: Arthritic changes. No visualized acute fracture or dislocation. However, if clinical concern and/or pain persist, short interval imaging followup in 7-10 days is recommended, as occult injury cannot be definitively excluded. Dictated by: Amira Kovacs M.D. on 04/30/2023 at 16:51 Approved by: Amira Kovacs M.D. on 04/30/2023 at 16:52
== END ==
PROVIDERS: PCP Family Medicine; Referring Provider Family Medicine; Visit Provider Family Medicine
DX: M25.552 Pain in left hip (principal)
CPT/HCPCS: 73502

== ENCOUNTER → 2023-05-03 13:13 | Outpatient (CLI) | payer MEDICARE, SELFPAY ==
[2021-12-26 16:33] VITALS: BMI 27.4
== END ==
PROVIDERS: PCP Family Medicine; Referring Provider Internal Medicine; Visit Provider Internal Medicine
DX: Z94.2 Lung transplant status (principal); Z87.891 Personal history of nicotine dependence; J98.8 Other specified respiratory disorders
CPT/HCPCS: 94060; 94726; 94729

== ENCOUNTER 2023-05-14 18:31 | Emergency (ER) | payer MEDICARE, SELFPAY ==
[2021-12-26 16:33] VITALS: BMI 27.4
[2023-05-14 18:35] VITALS: BP 128/61; PULSE 89; RESP 16; TEMP 36.6; O2SAT 99; BMI 27.1
--- NOTE | 2023-05-14 18:40 | DI.RAD.S_ITS ---
PROCEDURE: XR KNEE LT 3V INDICATIONS: knee pain TECHNIQUE: 3 views of the knee were acquired. COMPARISON: [facility] [place], [place], XR KNEE ARTHRITIC SERIES , 09/12/2021, 9:11. FINDINGS: Bones: No fractures or dislocations. No suspicious bony lesions. Moderate to severe tricompartmental knee joint degeneration. Soft tissues: Moderate joint effusion. Severe atherosclerotic calcifications. IMPRESSION: 1. No acute osseous abnormality. 2. Ogikjlow-gq-mkiotl osteoarthritis. 3. Moderate knee joint effusion. Dictated by: Be Cabrera M.D. on 05/14/2023 at 19:23 Approved by: Be Cabrera M.D. on 05/14/2023 at 19:24
--- NOTE | 2023-05-14 19:37 | ED_ITS ---
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 He denies any other symptoms such as dizziness, weakness or lightheadedness. He has no fever or chills. He states that he noticed it started hurting him when he was sitting in a chair watching a football game. He states he may have twisted it the day prior but denies any specific or known injury. It hurts worse when he tries to walk or bend it and improves with rest. He denies numbness, tingling or weakness. He denies any change in medications or diet. ? Related Data Home Medications Medication Instructions Recorded Confirmed azithromycin 500 mg tablet 500 mg PO DIRECTED 09/18/20 04/30/23 itraconazole 100 mg capsule 100 mg PO BID 09/18/20 04/30/23 prednisone 5 mg tablet 5 mg PO DAILY 09/18/20 04/30/23 tacrolimus 0.5 mg capsule, 0.5 mg PO QPM 09/18/20 04/30/23 immediate-release tacrolimus 1 mg capsule, 1 mg PO QAM 09/18/20 04/30/23 immediate-release tamsulosin 0.4 mg capsule 0.4 mg PO DAILY 10/30/22 04/30/23 epoetin hanh 20,000 unit/2 mL 20,000 unit SUBCUT QWEEK 11/16/22 04/30/23 injection solution (Epogen) ascorbic acid (vitamin C) 500 mg mg PO 04/17/23 04/30/23 capsule carvedilol 3.125 mg tablet 3.125 mg PO BID 04/17/23 04/30/23 omeprazole 20 mg capsule,delayed 20 mg PO DAILY 04/17/23 04/30/23 release sodium di- and 1 tab PO DAILY 04/17/23 04/30/23 monophosphate-potassium phos monobasic 250 mg tablet levothyroxine 150 mcg tablet 150 mcg PO DAILY 04/30/23 04/30/23 sulfamethoxazole 800 0.5 tab PO 04/30/23 04/30/23 mg-trimethoprim 160 mg tablet Previous Rx's Medication Instructions Recorded valganciclovir 450 mg tablet 450 mg PO .three times weekly CMV 04/17/23 prophylaxis #39 tabs Allergies Allergy/AdvReac Type Severity Reaction Status Date / Time No Known Drug Allergies Allergy Verified 05/14/23 18:35 Review of Systems Review of Systems Narrative: GENERAL: Denies chills, fatigue, malaise, fever, sweats. HEENT: Denies sinus pain, ear pain, sore throat, difficulty swallowing, dizziness. RESPIRATORY: Denies dyspnea, cough, wheezing, hemoptysis, sputum. CARDIOVASCULAR: Denies chest pain, palpitations, orthopnea, edema, GASTROINTESTINAL: Denies nausea, vomiting, abdominal pain, diarrhea, constipation, melena. : Denies dysuria, frequency, incontinence, hematuria, urinary retention. MUSCULOSKELETAL: See HPI SKIN: Denies rash, skin lesions, or other NEUROLOGIC: Denies weakness, headache, numbness, change in speech, confusion, seizures, incoordination. PSYCHIATRIC: No concerning psychosocial issues. 12 point review of systems is negative except for those stated above Patient History Medical History Anemia Chronic low back pain CKD (chronic kidney disease) stage 3, GFR 30-59 ml/min Coronary artery disease Diabetes Hearing impaired Hyperlipidemia Hypertension Hypothyroid IPF (idiopathic pulmonary fibrosis) Macrocytosis Tubular adenoma of colon Surgical History H/O lung transplant (2009) Hx of bilateral cataract extraction Hx of cholecystectomy Status post lung transplantation Family History Father Patient denies significant medical history Mother Patient denies significant medical history Social History marital status: household members: spouse Smoking Status: Former smoker alcohol intake: former Smoking Status: Former smoker alcohol intake frequency: holidays/special occasions only Substance Use Type: does not use Exam Narrative Exam Narrative: GEN: AOx3 and in mild distress EYES: Pupils are equal, round, and reactive to light and accommodation. Extraoccular muscles are intact bilaterally. There is no subconjunctival hemorrhage or exudate. CHEST: Lungs are clear to auscultation bilaterally and free of wheezes, rales, or rhonchi. Heart rate is regular rhythm, there are no murmurs, clicks, rubs, or gallops. There is no chest wall tenderness. ABD: Abdomen is soft and nontender. There is no guarding or rebound. Bowel sounds are normal in all 4 quadrants. There is no mass or organomegaly. EXT: Left knee without any obvious deformity, tpyv-ii-jagquksu effusion, no ligamentous instability SKIN: Warm, pink, and dry. No erythema or rash Initial Vital Signs Initial Vital Signs: Vital Signs Temperature 97.9 F 05/14/23 18:35 Pulse Rate 89 05/14/23 18:35 Respiratory Rate 16 05/14/23 18:35 Blood Pressure 128/61 05/14/23 18:35 Pulse Oximetry 99 05/14/23 18:35 Oxygen Delivery Method Room Air 05/14/23 18:35 Procedures Joint Aspiration Joint Asp./Inject. 1: Time Out Performed: Yes Side of body: left Joint Aspirated: knee Ultrasound Guidance: No Skin Prep: Chlorhexidine Local Anesthetic: lidocaine 2% Amount of anesthesia used (mL): 4 Needle Size Used: 20G Fluid Obtained: clear Total fluid obtained (mL): 50 Medication Injected, if any: Lidocaine Amount of medication injected (mL): 4 Patient Tolerated Procedure: Well Complications: none Course Orders Ordered: ED Orders 05/14/23 21:05 Body Fluid Culture Stat Cell Count w Diff Body Fluid Stat Crystals Body Fluid - IN-HOUSE Stat Vital Signs Vital signs: Vital Signs - 8 hr 05/14/23 18:35 Temperature 97.9 F Pulse Rate 89 Respiratory Rate 16 Blood Pressure 128/61 Pulse Oximetry 99 Oxygen Delivery Method Room Air MDM - Extremity (Nontraumatic) Lab Data Labs: Lab Results 05/14/23 05/14/23 Range/Units 21:05 21:05 Fluid Color [place] Fluid Appearance Slightly cloudy Fluid RBC 55018 /uL Fld Tot Nucleated Cell 3466 /uL Fluid Polynuclear WBCs 82 % Fluid Mononuclear WBCs 18 % Fluid Eosinophils 0 % Fluid Other Cells 0 % Fluid Crystals None present (NONE) Body Fluid Clot No clots present MDM Narrative Medical decision making narrative: [82] year old patient presents with left knee pain, likely no injury Multiple etiologies for patient's symptoms considered including, but not limited to: [Osteoarthritis versus gouty arthritis versus septic arthritis versus other] Prior Charts reviewed in our EMR Primary Historian: patient Labs reviewed and interpreted by myself:3466 total nucleated cells, no crystals Imaging reviewed: Xray without fx or dislocation, moderate effusion Consultations: discussed with Dr. Velasquez, he agrees no indication for intervention, likely OA Patient's symptoms improved over duration of stay with above-stated therapies. Findings and discharge diagnosis discussed with patient/family followed by verbalization of understanding Return precautions discussed with patient/family whom verbalize understanding of diagnosis and plan Discharge Plan Departure Patient Disposition: Home Clinical Impression: Effusion of knee joint, left Instructions: DI for Knee Pain Activity Restrictions/Additional Instructions: *You have been diagnosed with [left knee effusion. As we discussed there is no sign of infection or gout or other diagnosis requiring specific or immediate intervention] *What to do: *Please continue to take your regular medications as directed. *Please follow up with your primary care provider in 2-3 days, call for an appointment. Let them know you were seen in the Emergency Department and that we ask that you be seen in follow up. We will electronically transmit a record of today's note if your PCP is in our system *If you do not have a primary care provider please contact the [facility] Resource line at [phone]. They will ask some questions about your medical history and help get you set up with a doctor in the community. *Return to Emergency Department if you should have any new, worsening or concerning symptoms, such as [fever greater than 101 F, shaking chills, worsening pain, persistent vomiting or other bothersome symptoms] Prescriptions: No Action Epogen 20,000 unit/2 mL solution 20,000 unit SUBCUT QWEEK tamsulosin 0.4 mg capsule 0.4 mg PO DAILY levothyroxine 150 mcg tablet 150 mcg PO DAILY sulfamethoxazole-trimethoprim 800-160 mg tablet 0.5 tab PO Rx Instructions: 09/04 tab sunday, sunday, sunday prednisone 5 mg tablet 5 mg PO DAILY Patient Comments: TAKE 1 TABLET BY MOUTH EVERY DAY itraconazole 100 mg capsule 100 mg PO BID tacrolimus 1 mg capsule 1 mg PO QAM Patient Comments: TAKE 1 CAPSULE BY MOUTH EVERY DAY IN THE MORNING tacrolimus 0.5 mg capsule 0.5 mg PO QPM Patient Comments: TAKE 1 CAPSULE BY MOUTH EVERY EVENING azithromycin 500 mg tablet 500 mg PO DIRECTED Rx Instructions: TAKE 1 TABLET BY MOUTH EVERY SUNDAY, SUNDAY, AND SUNDAY ascorbic acid (vitamin C) 500 mg capsule PO carvedilol 3.125 mg tablet 3.125 mg PO BID Rx Instructions: must administer with a meal/food sod phos di, mono-K phos mono 250 mg tablet 1 tab PO DAILY omeprazole 20 mg capsule,delayed release(DR/EC) 20 mg PO DAILY valganciclovir 450 mg tablet 450 mg PO .three times weekly Qty: 39 4RF Referrals: Shy Angel DO [Primary Care Provider] - Stand Alone Forms: Patient Portal/API
[2023-05-14 21:27] LABS: Body Fluid Red Blood Cells 11649 /uL; Body Fluid Tot Nucleated Cells 3466 /uL
[2023-05-14 21:31] LABS: Body Fluid Appearance SLIGHTLY CLOUDY; Body Fluid Clotted? NO CLOTS PRESENT; Body Fluid Color PINK
[2023-05-14 21:38] LABS: Crystals Body Fluid - IN-HOUSE NONE Present
[2023-05-14 22:05] LABS: Eosinophils Body Fluid 0 %; Mononuclear WBC Body Fluid 18 %; Other Cells Body Fluid 0 %; Polynuclear WBC Body Fluid 82 %
== END 2023-05-14 22:42 | disposition home or self-care (01) ==
PROVIDERS: Emergency Provider Emergency Medicine; PCP Family Medicine
DX: M25.462 Effusion, left knee (principal); Z79.899 Other long term (current) drug therapy
CPT/HCPCS: 20610; 73562; 87070; 87075; 87205; 89051; 89060; 99281; 99284

== ENCOUNTER → 2023-05-16 09:23 | Outpatient (CLI) | payer MEDICARE, SELFPAY ==
[2021-12-26 16:33] VITALS: BMI 27.4
[2023-05-16 10:49] LABS: Add Manual Diff / Slide Review NO; Basophils Absolute Auto 0 /uL (0-100); Basophils Percent Auto 0.5 % (0-2); Eosinophils Absolute Auto 0 /uL (0-450); Eosinophils Percent Auto 0.5 % (2-4); Hematocrit 32.5 % (41-53); Lymphocytes Absolute Auto 2100 /uL (1100-4500); Lymphocytes Percent Auto 25.2 % (25-40); Mean Corpuscular Hemoglobin 34.2 PG (26-34); Mean Corpuscular Volume 100.7 fL (80-100); Monocytes Absolute Auto 800 /uL (0-900); Monocytes Percent Auto 9.4 % (3-14); Neutrophils Absolute Auto 5400 /uL (1500-7000); Neutrophils Percent Auto 64.4 % (50-75); Platelet Count 161 X10^3/uL (150-400); Red Blood Cell Count 3.23 X10^6/uL (4.5-5.9); Red Cell Distribution Width 15.2 % (11.6-14.8); White Blood Cell Count 8.3 X10^3/uL (4.5-11.0)
[2023-05-16 11:16] LABS: Alanine Aminotransferase 31 IU/L (<50); Albumin 3.3 g/dL (3.5-5.0); Albumin Globulin Ratio 1.3 (1.0-2.8); Alkaline Phosphatase 118 U/L (38-126); Aspartate Aminotransferase 26 IU/L (17-59); BUN Creatinine Ratio 25.3 (6-22); Bilirubin Total 0.6 mg/dL (0.2-1.3); Blood Urea Nitrogen 49 mg/dL (9-20); Calcium 8.9 mg/dL (8.4-10.2); Carbon Dioxide 20 mmol/L (22-32); Chloride 108 mmol/L (98-107); Estimated Glomerular Filt Rate 34 mL/min (>60); Globulin 2.5 g/dL (1.7-4.1); Glucose 131 mg/dL (80-110); HEMOLYSIS < 15 (0-50); Magnesium 2.1 mg/dL (1.6-2.3); Phosphorous 4.3 mg/dL (2.3-3.7); Potassium 5.3 mmol/L (3.4-5.1); Sodium 136 mmol/L (137-145); Total Protein 5.8 g/dL (6.3-8.2)
[2023-05-19 14:40] LABS: CMV DNA, Quant Real Time PCR Negative (Negative)
[2023-05-23 11:37] LABS: Tacrolimus 2.1
== END ==
PROVIDERS: PCP Family Medicine; Referring Provider Internal Medicine Critical Care Medicine; Visit Provider Internal Medicine Critical Care Medicine
DX: Z94.2 Lung transplant status (principal)
CPT/HCPCS: 36415; 80053; 80197; 83735; 84100; 85025; 87497

== ENCOUNTER → 2023-08-16 08:28 | Outpatient (CLI) | payer MEDICARE, SELFPAY ==
[2021-12-26 16:33] VITALS: BMI 27.4
[2023-08-16 09:27] LABS: Alanine Aminotransferase 24 IU/L (<50); Albumin 3.3 g/dL (3.5-5.0); Albumin Globulin Ratio 1.2 (1.0-2.8); Alkaline Phosphatase 148 U/L (38-126); Aspartate Aminotransferase 28 IU/L (17-59); Bilirubin Total 0.4 mg/dL (0.2-1.3); Blood Urea Nitrogen 47 mg/dL (9-20); Calcium 9.6 mg/dL (8.4-10.2); Carbon Dioxide 25 mmol/L (22-32); Chloride 107 mmol/L (98-107); Estimated Glomerular Filt Rate 30 mL/min (>60); Globulin 2.7 g/dL (1.7-4.1); Glucose 129 mg/dL (80-110); HEMOLYSIS < 15 (0-50); Potassium 4.9 mmol/L (3.4-5.1); Sodium 138 mmol/L (137-145)
[2023-08-16 10:09] LABS: Add Manual Diff / Slide Review NO; Basophils Absolute Auto 100 /uL (0-100); Basophils Percent Auto 1.3 % (0-2); Eosinophils Absolute Auto 100 /uL (0-450); Eosinophils Percent Auto 0.6 % (2-4); Hematocrit 30.9 % (41-53); Hemoglobin 10.4 g/dL (13.5-17.5); Lymphocytes Absolute Auto 2400 /uL (1100-4500); Lymphocytes Percent Auto 26.7 % (25-40); Mean Corpuscular HGB Conc 33.6 % (30-36); Mean Corpuscular Hemoglobin 34.6 PG (26-34); Mean Corpuscular Volume 102.8 fL (80-100); Monocytes Absolute Auto 700 /uL (0-900); Monocytes Percent Auto 7.7 % (3-14); Neutrophils Absolute Auto 5800 /uL (1500-7000); Neutrophils Percent Auto 63.7 % (50-75); Platelet Count 138 X10^3/uL (150-400); Red Cell Distribution Width 14.6 % (11.6-14.8); White Blood Cell Count 9.1 X10^3/uL (4.5-11.0)
[2023-08-22 10:24] LABS: Tacrolimus 3.8
== END ==
PROVIDERS: PCP Family Medicine; Referring Provider Internal Medicine Critical Care Medicine; Visit Provider Internal Medicine Critical Care Medicine
DX: E83.42 Hypomagnesemia (principal); Z94.2 Lung transplant status
CPT/HCPCS: 36415; 80053; 80197; 83735; 84100; 85025; 87497

== ENCOUNTER → 2023-09-26 14:34 | Outpatient (CLI) | payer MEDICARE, SELFPAY ==
[2021-12-26 16:33] VITALS: BMI 27.4
[2023-09-26 15:32] LABS: Influenza A - CEPHEID Flu A NEGATIVE (NEGATIVE); Influenza B - CEPHEID Flu B NEGATIVE (NEGATIVE); Respiratory Syncytial Virus POSITIVE (Negative)
[2023-09-26 16:36] LABS: COVID-19 CEPHEID 4-PLEX PCR Negative (Negative)
== END ==
PROVIDERS: PCP Family Medicine; Visit Provider Family Medicine
DX: R05.9 Cough, unspecified (principal); R09.81 Nasal congestion; R07.0 Pain in throat; R05.1 Acute cough
CPT/HCPCS: 0241U

== ENCOUNTER → 2023-09-27 08:36 | Outpatient (CLI) | payer MEDICARE, SELFPAY ==
[2021-12-26 16:33] VITALS: BMI 27.4
--- NOTE | 2023-09-27 08:37 | DI.RAD.S_ITS ---
PROCEDURE: XR CHEST 2V INDICATIONS: cough, crackles Lt lower lobe TECHNIQUE: 2 views of the chest were acquired. COMPARISON: [facility], , XR CHEST 1V, 09/16/2021, 23:22. FINDINGS: Surgical changes and devices: Patient is status post median sternotomy. Lungs and pleura: Lungs are clear. No pleural effusions or pneumothorax. Mediastinum: Mediastinal contours are normal. Heart size is normal. Bones and chest wall: No suspicious bony abnormalities. Soft tissues appear unremarkable. IMPRESSION: No acute cardiopulmonary abnormality is seen. Dictated by: Annita Eaton M.D. on 09/27/2023 at 13:38 Approved by: Annita Eaton M.D. on 09/27/2023 at 14:00
== END ==
PROVIDERS: PCP Family Medicine; Referring Provider Family Medicine; Visit Provider Family Medicine
DX: R05.9 Cough, unspecified (principal)
CPT/HCPCS: 71046

== ENCOUNTER 2023-11-16 14:11 | Emergency (ER) | payer MEDICARE, SELFPAY ==
[2021-12-26 16:33] VITALS: BMI 27.4
[2023-11-16] VITALS (13 sets, daily range): BP systolic 100–130; BP diastolic 56–68; PULSE 87–105; RESP 12–24; TEMP 37.1; O2SAT 92–95; BMI 28.3
--- NOTE | 2023-11-16 16:37 | ED.FALL ---
HPI - Fall General Chief Complaint: Fall Stated Complaint: Weakness, Fall Time Seen by Provider: 11/16/23 14:25 Source: patient and EMS Mode of arrival: EMS History of Present Illness HPI Narrative: Patient is a 83-year-old male history of pulmonary fibrosis status post lung transplant, chronic kidney disease, diabetes presenting today with syncopal episode. EMS reports that he was hypotensive on arrival but blood pressure is now improved. He denies any fever or chills. No significant cough. He had dermatologic procedure done 2 days ago. Today he just felt weak and shaky. His 1st call is generally to his son who lives in [place]. Son drove up from [place] realize that patient was weaker than normal he slipped any could not quite get him up by himself so he is the 1 who called 911. Patient did not hit his head or lose consciousness. No nausea or vomiting. Patient is currently eating a sandwich he is feeling much better. He reports that he quit taking his water pill as he was up all night being no matter what time he took the medicine. Related Data Home Medications Medication Instructions Recorded Confirmed azithromycin 500 mg tablet 500 mg PO DIRECTED 09/18/20 10/22/23 itraconazole 100 mg capsule 100 mg PO BID 09/18/20 10/22/23 prednisone 5 mg tablet 5 mg PO DAILY 09/18/20 10/22/23 tacrolimus 0.5 mg capsule, 0.5 mg PO QPM 09/18/20 10/22/23 immediate-release tacrolimus 1 mg capsule, 1 mg PO QAM 09/18/20 10/22/23 immediate-release tamsulosin 0.4 mg capsule 0.4 mg PO DAILY 10/30/22 10/22/23 epoetin hanh 20,000 unit/2 mL 20,000 unit SUBCUT QWEEK 11/16/22 10/22/23 injection solution (Epogen) ascorbic acid (vitamin C) 500 mg mg PO 04/17/23 10/22/23 capsule carvedilol 3.125 mg tablet 3.125 mg PO BID 04/17/23 10/22/23 omeprazole 20 mg capsule,delayed 20 mg PO DAILY 04/17/23 10/22/23 release sodium di- and 1 tab PO DAILY 04/17/23 10/22/23 monophosphate-potassium phos monobasic 250 mg tablet levothyroxine 150 mcg tablet 150 mcg PO DAILY 04/30/23 10/22/23 sulfamethoxazole 800 0.5 tab PO 04/30/23 10/22/23 mg-trimethoprim 160 mg tablet ferrous sulfate 325 mg (65 mg 325 mg PO 3XW 09/26/23 10/22/23 iron) tablet (FeroSul) Previous Rx's Medication Instructions Recorded gabapentin 100 mg capsule 200 mg (2 x 100 mg) PO Q8H PRN 05/22/23 pain #90 caps valganciclovir 450 mg tablet 450 mg PO .three times weekly CMV 08/29/23 prophylaxis #39 tabs benzonatate 100 mg capsule 100 mg PO BID-TID PRN cough #20 09/26/23 caps bumetanide 1 mg tablet 1 mg PO DAILY #90 tabs 10/22/23 sitagliptin phosphate 50 mg tablet 50 mg PO DAILY #90 tabs 10/24/23 (Januvia) Allergies Allergy/AdvReac Type Severity Reaction Status Date / Time No Known Drug Allergies Allergy Verified 11/16/23 14:22 Patient History Medical History (Updated 11/16/23 @ 18:17 by Jada Gerardo DO) Encounter for subsequent annual wellness visit (AWV) in Medicare patient Macrocytosis CKD (chronic kidney disease) stage 3, GFR 30-59 ml/min Chronic low back pain Hearing impaired IPF (idiopathic pulmonary fibrosis) Hypothyroid Diabetes Hyperlipidemia Hypertension Coronary artery disease Anemia Tubular adenoma of colon Surgical History Status post lung transplantation Hx of cholecystectomy Hx of bilateral cataract extraction H/O lung transplant (2009) Family History Father Patient denies significant medical history Mother Patient denies significant medical history Social History marital status: household members: spouse Smoking Status: Former smoker alcohol intake: former Smoking Status: Former smoker alcohol intake frequency: holidays/special occasions only Substance Use Type: does not use Exam Initial Vital Signs Initial Vital Signs: Vital Signs Pulse Rate 101 H 11/16/23 14:17 Blood Pressure 112/61 11/16/23 14:17 Pulse Oximetry 92 11/16/23 14:17 GENERAL: Alert pleasant well-appearing 83-year-old HEENT: Head atraumatic,EOMI, pupils reactive, face symmetric, moist mucous membranes CARDIOVASCULAR: Regular rate and rhythm without murmurs, rubs or gallops. RESPIRATORY: Breath sounds equal bilaterally, no wheezes rales or rhonchi. ABDOMEN: Soft, nontender. Normoactive bowel sounds all 4 quadrants. No guarding or rebound. EXTREMITIES: Normal range of motion, no clubbing or edema. Neurovascularly intact NEUROLOGICAL: Alert and oriented x4.Normal gait and speech. Cranial nerves II through XII grossly intact. SKIN: Warm, dry, no laceration, no petechiae, no rashes or lesions. Healing incision site on left head Course Orders Ordered: ED Orders 11/16/23 14:00 BNP [NT-proBNP (BNP-Adult 18+)] Stat Complete Blood Count AUTO DIFF Stat Comprehensive Metabolic Panel Stat Lactate (Lactic Acid) Stat Lipase Stat PTT Partial Thromboplastin Kevin Stat Procalcitonin Stat Prothrombin Time INR Stat Troponin I Stat 11/16/23 16:37 XR chest 1V Stat Blood Culture Stat EKG-12 Lead Stat RT Consult Eval and Treat NOW 11/16/23 16:49 Respiratory Panel (Film Array) Stat 11/16/23 17:42 Ictotest Urine Stat Discontinued Medications Sodium Chloride (Normal Saline 0.9%) 1,000 mls @ 250 mls/hr IV BOLUS ONE Stop: 11/16/23 20:36 Last Infusion: 11/16/23 18:23 Dose: 250 mls/hr Documented By: Admin: 11/16/23 16:52 Dose: 250 mls/hr Documented By: FABIAN Ondansetron HCl (Ondansetron 4 Mg/2 Ml Inj) 4 mg IV NOW PRN PRN Reason: Nausea And Vomiting Ondansetron HCl (Ondansetron 4 Mg Odt) 4 mg SL NOW PRN PRN Reason: Nausea And Vomiting Vital Signs Vital signs: Vital Signs - 8 hr 11/16/23 14:17 11/16/23 14:17 11/16/23 14:19 Temperature 98.8 F Pulse Rate 101 H 101 H Respiratory Rate 18 Blood Pressure 112/61 112/60 Pulse Oximetry 92 94 Oxygen Delivery Method Room Air 11/16/23 14:30 11/16/23 14:30 11/16/23 15:00 Temperature Pulse Rate 96 H Respiratory Rate 18 Blood Pressure 110/59 L 106/56 L Pulse Oximetry 95 Oxygen Delivery Method 11/16/23 15:00 11/16/23 15:30 11/16/23 15:30 Temperature Pulse Rate 92 H 93 H Respiratory Rate 20 17 Blood Pressure 114/59 L Pulse Oximetry 93 95 Oxygen Delivery Method 11/16/23 16:00 11/16/23 16:00 11/16/23 16:30 Temperature Pulse Rate 87 87 Respiratory Rate 16 16 Blood Pressure 107/57 L Pulse Oximetry 92 94 Oxygen Delivery Method 11/16/23 16:30 11/16/23 17:00 11/16/23 17:01 Temperature Pulse Rate 94 H Respiratory Rate 22 Blood Pressure 121/60 129/63 Pulse Oximetry 94 Oxygen Delivery Method 11/16/23 17:01 11/16/23 17:30 11/16/23 17:30 Temperature Pulse Rate 95 H 88 Respiratory Rate 24 20 Blood Pressure 130/68 Pulse Oximetry 94 94 Oxygen Delivery Method 11/16/23 18:04 11/16/23 18:05 11/16/23 18:05 Temperature Pulse Rate 105 H 101 H Respiratory Rate 14 14 Blood Pressure 109/56 L Pulse Oximetry 92 92 Oxygen Delivery Method 11/16/23 18:11 11/16/23 18:11 Temperature Pulse Rate 98 H Respiratory Rate 12 Blood Pressure 100/58 L Pulse Oximetry 95 Oxygen Delivery Method MDM - Fall Lab Data 11/16/23 14:00 11/16/23 14:00 Labs: Lab Results 11/16/23 11/16/23 11/16/23 Range/Units 14:00 16:49 17:42 WBC 16.2 H (4.5-11.0) X10^3/uL RBC 3.37 L (4.5-5.9) X10^6/uL Hgb 11.2 L (13.5-17.5) g/dL Hct 34.3 L (41-53) % MCV 102.0 H (80-100) fL MCH 33.3 (26-34) PG MCHC 32.6 (30-36) % RDW 15.1 H (11.6-14.8) % Plt Count 165 (150-400) X10^3/uL Neut % (Auto) 79.9 H (50-75) % Lymph % (Auto) 12.3 L (25-40) % [place] % (Auto) 7.1 (3-14) % Eos % (Auto) 0.2 L (2-4) % Baso % (Auto) 0.5 (0-2) % Neut # (Auto) 74270 H (5533-3339) /uL Lymph # (Auto) 2000 (1525-0325) /uL [place] # (Auto) 1100 H (0-900) /uL Eos # (Auto) 0 (0-450) /uL Baso # (Auto) 100 (0-100) /uL PT 10.9 (9.4-12.5) SECONDS INR 1.0 (0.9-1.3) APTT 30 (25.1-36.5) SECONDS Sodium 139 (137-145) mmol/L Potassium 4.6 (3.4-5.1) mmol/L Chloride 107 (98-107) mmol/L Carbon Dioxide 28 (22-32) mmol/L BUN 45 H (9-20) mg/dL Creatinine 1.93 H (0.66-1.25) mg/dL Estimated GFR 34 L (>60) mL/min BUN/Creatinine Ratio 23.3 H (6-22) Glucose 136 H (80-110) mg/dL Lactate 1.7 (0.7-2.1) mmol/L Calcium 10.2 (8.4-10.2) mg/dL Total Bilirubin 0.6 (0.2-1.3) mg/dL AST 39 (17-59) IU/L ALT 27 (<50) IU/L Alkaline Phosphatase 108 (38-126) U/L Troponin I 0.042 H (0.01-0.034) ng/mL NT-Pro-B Natriuret Pep 2380 H (<450) pg/mL Total Protein 6.5 (6.3-8.2) g/dL Albumin 3.5 (3.5-5.0) g/dL Globulin 3.0 (1.7-4.1) g/dL Albumin/Globulin Ratio 1.2 (1.0-2.8) Lipase 57 (23-300) U/L Procalcitonin 0.14 (<0.5) ng/mL Ur Bilirubin Confirm Negative (Negative) Chlamy pneumoniae PCR Not detected (Not Detect) Adenovirus (PCR) Not detected (Not Detect) B.parapertussis DNA PCR Not detected (Not Detecte) Coronavirus OC43 (PCR) Not detected (Not Detect) Coronavirus HKU1 (PCR) Not detected (Not Detect) Coronavirus 229E (PCR) Not detected (Not Detect) SARS-CoV-2 (PCR) Not detected (Not Detecte) Coronavirus NL63 (PCR) Not detected (Not Detect) Human Metapneumovir PCR Not detected (Not Detect) Influenza Type A (PCR) Not detected (Not Detect) Influenza Type B (PCR) Not detected (Not Detect) M. pneumoniae (PCR) Not detected (Not Detect) Parainfluenza 1 (PCR) Not detected (Not Detect) Parainfluenza 2 (PCR) Not detected (Not Detect) Parainfluenza 3 (PCR) Not detected (Not Detect) Parainfluenza 4 (PCR) Not detected (Not Detect) RSV (PCR) Detected H (Not Detect) Entero/Rhino (PCR) Not detected (Not Detect) Urine Dip Bedside Urine Glucose Negative Bedside Urine Bilirubin + 1 Bedside Urine Ketone - Negative Urine Specific [place] 1.020 Bedside Urine Occult Blood - Negative Bedside Urine pH 5.5 Bedside Urine Protein - Negative Bedside Urine Urobilinogen - Negative Bedside Urine Nitrite - Negative Bedside Urine Leukocytes - Negative Esterase Imaging Data Chest x-ray: Radiologist's Impression: PROCEDURE: XR CHEST 1V INDICATIONS: suspected sepsis TECHNIQUE: One view of the chest was acquired. COMPARISON: [facility], , XR CHEST 2V, 09/27/2023, 9:03. FINDINGS: Surgical changes and devices: Sternotomy hardware is redemonstrated. Lungs and pleura: Lung volumes are low. There are diffuse interstitial radiopacities. No pleural effusion or pneumothorax. Mediastinum: Mediastinal contours appear normal. Heart size is normal. Bones and chest wall: No suspicious bony lesions. Overlying soft tissues appear unremarkable. IMPRESSION: Low lung volumes and interstitial radiopacities suggesting mild pulmonary edema. No focal airspace consolidation. Dictated by: Annita Eaton M.D. on 11/16/2023 at 17:08 Approved by: Annita Eaton M.D. on 11/16/2023 at 17:09 ECG Data Attestation: I personally reviewed and interpreted this ECG as follows: Prior ECG tracings: available for review Interpretation: Sinus rhythm rate 92 NM interval 204 QRS [address] changes right bundle-branch present similar to previous MDM Narrative Medical decision making narrative: Patient micaela 83-year-old male who presents with some weakness shaking in low risk mechanical fall. Initially presented with hypotension that quickly resolved with IV fluids. Son states that he has done this before. He has no obvious injury anywhere from the fall. He has been feeling well until today where he just reports little bit more she is. He is afebrile. Blood work has been reviewed he does have leukocytosis of 16.2 with mild left shift it was previously 9.1, creatinine 1.93 previously 2.14 roughly at baseline, troponin is 0.042 however he always has a mildly elevated troponin of about the same, BNP also 2380 previously 2900 in a euvolemic state without evidence of fluid overload, urinalysis negative for UTI, viral panel positive for RSV, lactic acid 1.7, procalcitonin 0.14, blood cultures pending Chest x-ray reviewed mild pulmonary edema EKG reviewed Patient is found to have mild leukocytosis of 16 with an RSV on his respiratory panel. Chest x-ray i mild pulmonary edema. He is afebrile. Patient is not having any sort of overt signs of congestive heart failure. On exam he does have some mild lower extremity edema but was hypotensive initially. He is not hypoxic or complaining of chest pain or shortness of breath. He did receive some IV fluids here. Blood pressure has been stable since he has arrived. He has no complaints currently eating a sandwich. He ambulated without any assistance. At this time despite leukocytosis no clear indication to start antibiotics. Son is at bedside updated all symptoms test results #65: Appropriate Treatment for Patients with URI X The patient was diagnosed with upper respiratory infection and was not prescribed or dispensed an antibiotic. [SATISFIES MIPS PERFORMANCE] [] The patient has competing comorbid condition within the last 12 months. The comorbid condition was [] (e.g., neutropenia, cystic fibrosis, chronic bronchitis, pulmonary edema, respiratory failure, rheumatoid lung disease). [MIPS PERFORMANCE EXCEPTION/EXCLUSION] [] The patient is already on antibiotics, or has taken them within the last 30 days. [MIPS PERFORMANCE EXCEPTION/EXCLUSION] [] The patient had a competing diagnosis of [] (e.g. acute otitis media, chronic sinusitis, cellulitis, UTI, etc.). [[facility] PERFORMANCE EXCEPTION/EXCLUSION] [] The patient was diagnosed with upper respiratory infection and was prescribed or dispensed an antibiotic. [DOES NOT SATISFY [facility] PERFORMANCE] Discharge Plan Departure Patient Disposition: Home Clinical Impression: Respiratory syncytial virus (RSV) infection, Weakness Instructions: Respiratory Syncytial Virus, Orthostatic Hypotension Activity Restrictions/Additional Instructions: *You have been diagnosed with RSV and orthostatic hypotension *What to do: You are positive for RSV you were positive in September as well. This may be why you might be a little bit weak. Continue to drink fluids *Continue to take medications as directed *Follow up with your primary care provider in 2-3 days or call [phone] *Return to ER if you should have increasing weakness falls confusion shortness of breath or any new, worsening or concerning symptoms Prescriptions: No Action Epogen 20,000 unit/2 mL solution 20,000 unit SUBCUT QWEEK valganciclovir 450 mg tablet 450 mg PO .three times weekly Qty: 39 4RF Januvia 50 mg tablet 50 mg PO DAILY Qty: 90 3RF tamsulosin 0.4 mg capsule 0.4 mg PO DAILY levothyroxine 150 mcg tablet 150 mcg PO DAILY sulfamethoxazole-trimethoprim 800-160 mg tablet 0.5 tab PO Rx Instructions: 1/2 tab sunday, sunday, sunday bumetanide 1 mg tablet 1 mg PO DAILY Qty: 90 3RF Rx Instructions: stop furosemide gabapentin 100 mg capsule 200 mg PO Q8H PRN (Reason: pain) Qty: 90 11RF ferrous sulfate [FeroSul] 325 mg (65 mg iron) tablet 325 mg PO 3XW benzonatate 100 mg capsule 100 mg PO BID-TID PRN (Reason: cough) Qty: 20 2RF prednisone 5 mg tablet 5 mg PO DAILY Patient Comments: TAKE 1 TABLET BY MOUTH EVERY DAY itraconazole 100 mg capsule 100 mg PO BID tacrolimus 1 mg capsule 1 mg PO QAM Patient Comments: TAKE 1 CAPSULE BY MOUTH EVERY DAY IN THE MORNING tacrolimus 0.5 mg capsule 0.5 mg PO QPM Patient Comments: TAKE 1 CAPSULE BY MOUTH EVERY EVENING azithromycin 500 mg tablet 500 mg PO DIRECTED Rx Instructions: TAKE 1 TABLET BY MOUTH EVERY SUNDAY, SUNDAY, AND SUNDAY ascorbic acid (vitamin C) 500 mg capsule PO carvedilol 3.125 mg tablet 3.125 mg PO BID Rx Instructions: must administer with a meal/food sod phos di, mono-K phos mono 250 mg tablet 1 tab PO DAILY omeprazole 20 mg capsule,delayed release(DR/EC) 20 mg PO DAILY Referrals: Shy Angel DO [Primary Care Provider] - Stand Alone Forms: Patient Portal/API
[2023-11-16 16:47] LABS: Add Manual Diff / Slide Review NO; Basophils Absolute Auto 100 /uL (0-100); Basophils Percent Auto 0.5 % (0-2); Eosinophils Absolute Auto 0 /uL (0-450); Eosinophils Percent Auto 0.2 % (2-4); Hematocrit 34.3 % (41-53); Hemoglobin 11.2 g/dL (13.5-17.5); Lymphocytes Absolute Auto 2000 /uL (1100-4500); Lymphocytes Percent Auto 12.3 % (25-40); Mean Corpuscular HGB Conc 32.6 % (30-36); Mean Corpuscular Hemoglobin 33.3 PG (26-34); Monocytes Absolute Auto 1100 /uL (0-900); Monocytes Percent Auto 7.1 % (3-14); Neutrophils Absolute Auto 13000 /uL (1500-7000); Neutrophils Percent Auto 79.9 % (50-75); Platelet Count 165 X10^3/uL (150-400); Red Blood Cell Count 3.37 X10^6/uL (4.5-5.9); Red Cell Distribution Width 15.1 % (11.6-14.8); White Blood Cell Count 16.2 X10^3/uL (4.5-11.0)
[2023-11-16 16:49] LABS: Prothrombin Time 10.9 SECONDS (9.4-12.5)
[2023-11-16 16:51] LABS: PTT Partial Thromboplastin Tim 30 SECONDS (25.1-36.5)
[2023-11-16] MEDS: SODIUM CHLORIDE 0.9% 1,000 ML 250 ML IV (16:52)
[2023-11-16 16:59] LABS: Lactate (Lactic Acid) 1.7 mmol/L (0.7-2.1)
[2023-11-16 17:00] LABS: HEMOLYSIS < 15 (0-50); Potassium 4.6 mmol/L (3.4-5.1)
[2023-11-16 17:01] LABS: Alanine Aminotransferase 27 IU/L (<50); Albumin 3.5 g/dL (3.5-5.0); Albumin Globulin Ratio 1.2 (1.0-2.8); Alkaline Phosphatase 108 U/L (38-126); Aspartate Aminotransferase 39 IU/L (17-59); BUN Creatinine Ratio 23.3 (6-22); Bilirubin Total 0.6 mg/dL (0.2-1.3); Blood Urea Nitrogen 45 mg/dL (9-20); Calcium 10.2 mg/dL (8.4-10.2); Carbon Dioxide 28 mmol/L (22-32); Chloride 107 mmol/L (98-107); Estimated Glomerular Filt Rate 34 mL/min (>60); Glucose 136 mg/dL (80-110); Lipase 57 U/L (23-300); Sodium 139 mmol/L (137-145); Total Protein 6.5 g/dL (6.3-8.2)
[2023-11-16 17:12] LABS: NT-proBNP (BNP-Adult 18+) 2380 pg/mL (<450); Troponin I 0.042 ng/mL (0.01-0.034)
[2023-11-16 17:17] LABS: Procalcitonin 0.14 ng/mL (<0.5)
[2023-11-16 17:43] LABS: Adenovirus Not Detected (Not Detect); B. parapertussis Not Detected (Not Detecte); Bordetella pertussis Not Detected (Not Detect); Chlamydophila pneumoniae Not Detected (Not Detect); Coronavirus 229E Not Detected (Not Detect); Coronavirus HKU1 Not Detected (Not Detect); Coronavirus NL 63 Not Detected (Not Detect); Coronavirus OC43 Not Detected (Not Detect); Human Metapneumovirus Not Detected (Not Detect); Human Rhinovirus/Enterovirus Not Detected (Not Detect); Influenza A Not Detected (Not Detect); Influenza B Not Detected (Not Detect); Mycoplasma pneumoniae Not Detected (Not Detect); Parainfluenza Virus 1 Not Detected (Not Detect); Parainfluenza Virus 2 Not Detected (Not Detect); Parainfluenza Virus 3 Not Detected (Not Detect); Parainfluenza Virus 4 Not Detected (Not Detect); Respiratory Syncytial Virus Detected (Not Detect); SARS- CoV-2 Not Detected (Not Detecte)
[2023-11-16 18:03] LABS: Ictotest Urine Negative (Negative)
--- NOTE | 2023-11-16 18:06 | PC.NURSE ---
Patient has zero complaints. Stated I feel a whole lot better then I did this morning.
== END 2023-11-16 18:23 | disposition home or self-care (01) ==
PROVIDERS: Emergency Provider Emergency Medicine; PCP Family Medicine
DX: J06.9 Acute upper respiratory infection, unspecified (principal); B97.4 Respiratory syncytial virus as the cause of diseases classified elsewhere; R53.1 Weakness; I95.1 Orthostatic hypotension; Z20.822 Contact with and (suspected) exposure to COVID-19
CPT/HCPCS: 71045; 80053; 81003; 83605; 83690; 83880; 84145; 84484; 85025; 85610; 85730; 87633; 93005; 93010; 96360; 96361; 99284

== ENCOUNTER 2023-12-03 10:39 | Emergency (ER) | payer MEDICARE, SELFPAY ==
[2021-12-26 16:33] VITALS: BMI 27.4
[2023-12-03] VITALS (12 sets, daily range): BP systolic 145–156; BP diastolic 72–83; PULSE 81–90; RESP 20; TEMP 36.4; O2SAT 92–99; BMI 29.0
--- NOTE | 2023-12-03 11:06 | DI.RAD.S_ITS ---
PROCEDURE: XR CHEST 1V INDICATIONS: suspected sepsis TECHNIQUE: One view of the chest was acquired. COMPARISON: [facility], CR, XR CHEST 1V, 11/16/2023, 16:42. [facility], CR, XR CHEST 2V, 09/27/2023, 9:03. FINDINGS: Surgical changes and devices: Sternotomy hardware is redemonstrated. Lungs and pleura: Lungs are clear. No pleural effusions or pneumothorax. Mediastinum: Mediastinal contours appear normal. Heart size is normal. Bones and chest wall: No suspicious bony lesions. Overlying soft tissues appear unremarkable. IMPRESSION: No acute cardiopulmonary abnormality is seen. Dictated by: Nolan Valdez M.D. on 12/03/2023 at 11:19 Approved by: Nolan Valdez M.D. on 12/03/2023 at 11:20
--- NOTE | 2023-12-03 11:07 | DI.CT.S_ITS ---
PROCEDURE: CT HEAD/BRAIN WO CON INDICATIONS: vision changes TECHNIQUE: Noncontrast 4.5 mm thick angled axial sections acquired from the foramen magnum to the vertex, with coronal and sagittal reformats. For radiation dose reduction, the following was used: automated exposure control, adjustment of mA and/or kV according to patient size. COMPARISON: None. FINDINGS: Image quality: Diagnostic. CSF spaces: Basal cisterns are patent. No extra-axial fluid collections. The ventricles are symmetric in size and shape. Brain: No intracranial bleeds or masses. There is cerebral volume loss for age, with resultant ventricular and sulcal prominence. There are periventricular and deep white matter chronic small vessel ischemic changes. There is intracranial internal carotid artery atherosclerosis. Skull and face: Calvarium and visualized facial bones appear intact, without suspicious lesions. Bilateral lens replacements. Sinuses: Complete opacification of the right sphenoid sinus with thickening of the wall consistent with chronic etiology. Complete opacification of the posterior ethmoid air cells bilaterally. The mastoids are clear. IMPRESSION: No acute intracranial pathology. Dictated by: Nolan Valdez M.D. on 12/03/2023 at 12:20 Approved by: Nolan Valdez M.D. on 12/03/2023 at 12:22
--- NOTE | 2023-12-03 11:12 | ED_ITS ---
HPI - Weakness General Chief complaint: Weakness Stated complaint: weakness Time Seen by Provider: 12/03/23 11:07 Source: patient Mode of arrival: Ambulatory History of Present Illness HPI Narrative: Patient 83-year-old male history of pulmonary fibrosis status post lung transplant in 2009, chronic kidney disease, diabetes presenting today with increasing weakness. reports that over the last 1 week he has had more weakness and confusion. No significant changes. He denies any chest pain or shortness of breath. He had RSV earlier this year questionable if he is still has it. He was actually seen evaluated by myself on November 15 or syncopal episode. He was diagnosed again with RSV had that and ultimately discharged home. now reports that he is just weaker without significant complaints. No abdominal pain nausea or vomiting. No significant swelling. A couple days ago he had some blurry vision for a few hours but self resolved no loss of vision. States that his left leg is weak but really complaining of left hip pain whenever he moves it not necessarily weakness. He denies any falls. Not on anticoagulation. Related Data Home Medications Medication Instructions Recorded Confirmed azithromycin 500 mg tablet 500 mg PO DIRECTED 09/18/20 11/29/23 itraconazole 100 mg capsule 100 mg PO BID 09/18/20 11/29/23 prednisone 5 mg tablet 5 mg PO DAILY 09/18/20 11/29/23 tacrolimus 0.5 mg capsule, 0.5 mg PO QPM 09/18/20 11/29/23 immediate-release tacrolimus 1 mg capsule, 1 mg PO QAM 09/18/20 11/29/23 immediate-release tamsulosin 0.4 mg capsule 0.4 mg PO DAILY 10/30/22 11/29/23 epoetin hanh 20,000 unit/2 mL 20,000 unit SUBCUT QWEEK 11/16/22 11/29/23 injection solution (Epogen) ascorbic acid (vitamin C) 500 mg mg PO 04/17/23 11/29/23 capsule carvedilol 3.125 mg tablet 3.125 mg PO BID 04/17/23 11/29/23 omeprazole 20 mg capsule,delayed 20 mg PO DAILY 04/17/23 11/29/23 release sodium di- and 1 tab PO DAILY 04/17/23 11/29/23 monophosphate-potassium phos monobasic 250 mg tablet levothyroxine 150 mcg tablet 150 mcg PO DAILY 04/30/23 11/29/23 sulfamethoxazole 800 0.5 tab PO 04/30/23 11/29/23 mg-trimethoprim 160 mg tablet ferrous sulfate 325 mg (65 mg 325 mg PO 3XW 09/26/23 11/29/23 iron) tablet (FeroSul) Previous Rx's Medication Instructions Recorded gabapentin 100 mg capsule 200 mg (2 x 100 mg) PO Q8H PRN 05/22/23 pain #90 caps valganciclovir 450 mg tablet 450 mg PO .three times weekly CMV 08/29/23 prophylaxis #39 tabs benzonatate 100 mg capsule 100 mg PO BID-TID PRN cough #20 09/26/23 caps bumetanide 1 mg tablet 1 mg PO DAILY #90 tabs 10/22/23 sitagliptin phosphate 50 mg tablet 50 mg PO DAILY #90 tabs 10/24/23 (Januvia) Disabled parking permit #1 ea 11/20/23 metolazone 2.5 mg tablet 2.5 mg PO DAILY #90 tabs 11/20/23 Allergies Allergy/AdvReac Type Severity Reaction Status Date / Time No Known Drug Allergies Allergy Verified 12/03/23 11:07 Patient History Medical History Encounter for subsequent annual wellness visit (AWV) in Medicare patient Macrocytosis CKD (chronic kidney disease) stage 3, GFR 30-59 ml/min Chronic low back pain Hearing impaired IPF (idiopathic pulmonary fibrosis) Hypothyroid Diabetes Hyperlipidemia Hypertension Coronary artery disease Anemia Tubular adenoma of colon Surgical History Status post lung transplantation Hx of cholecystectomy Hx of bilateral cataract extraction H/O lung transplant (2009) Family History Father Patient denies significant medical history Mother Patient denies significant medical history Social History marital status: household members: spouse Smoking Status: Former smoker alcohol intake: former Smoking Status: Former smoker alcohol intake frequency: holidays/special occasions only Substance Use Type: does not use Exam Initial Vital Signs Initial Vital Signs: Vital Signs Temperature 97.5 F L 12/03/23 11:00 Pulse Rate 86 12/03/23 11:00 Respiratory Rate 20 12/03/23 11:00 Blood Pressure 153/72 H 12/03/23 11:00 Pulse Oximetry 99 12/03/23 11:00 Oxygen Delivery Method Room Air 12/03/23 11:00 GENERAL: Weak alert elderly male HEENT: Head atraumatic,EOMI, pupils reactive, face symmetric, moist mucous membranes CARDIOVASCULAR: Regular rate and rhythm without murmurs, rubs or gallops. RESPIRATORY: Breath sounds equal bilaterally, no wheezes rales or rhonchi. ABDOMEN: Soft, nontender. Normoactive bowel sounds all 4 quadrants. No guarding or rebound. EXTREMITIES: Normal range of motion, no clubbing or edema. Neurovascularly intact NEUROLOGICAL: Alert and oriented x4. Able to lift and hold each leg for 5 seconds arms bilaterally 10 seconds good [id number] sensation intact no facial droop SKIN: Warm, dry, no laceration, no petechiae, no rashes or lesions. Course Orders Ordered: ED Orders 12/03/23 11:06 XR chest 1V Stat EKG-12 Lead Stat RT Consult Eval and Treat NOW 12/03/23 11:07 CT head/brain wo con Stat 12/03/23 11:08 Complete Blood Count AUTO DIFF Stat Comprehensive Metabolic Panel Stat Lactate (Lactic Acid) Stat Lipase Stat Procalcitonin Stat 12/03/23 11:10 Respiratory Panel (Film Array) Stat 12/03/23 11:12 PTT Partial Thromboplastin Kevin Stat Prothrombin Time INR Stat Troponin & CK Cardiac Panel Stat 12/03/23 11:17 Blood Culture Stat 12/03/23 11:23 EKG-12 Lead Routine 12/03/23 13:09 UA Complete [Urinalysis and Microscopic] Stat 12/03/23 13:26 Trop I [Troponin I] Stat Discontinued Medications Acetaminophen (Acetaminophen 325 Mg Tablet) 650 mg PO NOW ONE Stop: 12/03/23 13:27 Last Admin: 12/03/23 13:32 Dose: 650 mg Documented By: ASHLEY Sodium Chloride (Normal Saline 0.9%) 1,000 mls @ 1,000 mls/hr IV BOLUS ONE Stop: 12/03/23 12:05 Last Infusion: 12/03/23 12:46 Dose: Infused Documented By: Admin: 12/03/23 11:37 Dose: 1,000 mls/hr Documented By: OW Lorazepam (Lorazepam 2 Mg/Ml Inj) 0.5 mg IV NOW ONE Stop: 12/03/23 13:50 Last Admin: 12/03/23 14:41 Dose: Not Given Documented By: ES Ondansetron HCl (Ondansetron 4 Mg/2 Ml Inj) 4 mg IV NOW PRN PRN Reason: Nausea And Vomiting Ondansetron HCl (Ondansetron 4 Mg Odt) 4 mg SL NOW PRN PRN Reason: Nausea And Vomiting Vital Signs Vital signs: Vital Signs - 8 hr 12/03/23 11:00 12/03/23 11:07 12/03/23 11:15 Temperature 97.5 F L Pulse Rate 86 88 86 Respiratory Rate 20 Blood Pressure 153/72 H Pulse Oximetry 99 99 99 Oxygen Delivery Method Room Air 12/03/23 11:30 12/03/23 11:45 12/03/23 11:45 Temperature Pulse Rate 81 81 Respiratory Rate Blood Pressure 145/80 H Pulse Oximetry 92 97 Oxygen Delivery Method 12/03/23 12:04 12/03/23 12:15 12/03/23 12:19 Temperature Pulse Rate 89 85 81 Respiratory Rate Blood Pressure Pulse Oximetry 98 95 96 Oxygen Delivery Method 12/03/23 12:19 12/03/23 12:30 12/03/23 12:30 Temperature Pulse Rate 83 Respiratory Rate Blood Pressure 156/79 H 153/77 H Pulse Oximetry 95 Oxygen Delivery Method 12/03/23 12:44 12/03/23 12:45 12/03/23 12:45 Temperature Pulse Rate 86 86 Respiratory Rate Blood Pressure 155/83 H Pulse Oximetry 96 97 Oxygen Delivery Method 12/03/23 13:00 Temperature Pulse Rate 90 Respiratory Rate Blood Pressure Pulse Oximetry 96 Oxygen Delivery Method MDM - Weakness Lab Data 12/03/23 11:08 12/03/23 11:08 Labs: Lab Results 12/03/23 12/03/23 12/03/23 Range/Units 11:08 11:10 11:12 WBC 9.3 (4.5-11.0) X10^3/uL RBC 3.05 L (4.5-5.9) X10^6/uL Hgb 10.5 L (13.5-17.5) g/dL Hct 31.2 L (41-53) % MCV 102.2 H (80-100) fL MCH 34.5 H (26-34) PG MCHC 33.7 (30-36) % RDW 14.8 (11.6-14.8) % Plt Count 212 (150-400) X10^3/uL Neut % (Auto) 58.2 (50-75) % Lymph % (Auto) 25.9 (25-40) % [place] % (Auto) 14.1 H (3-14) % Eos % (Auto) 1.1 L (2-4) % Baso % (Auto) 0.7 (0-2) % Neut # (Auto) 5400 (3308-8423) /uL Lymph # (Auto) 2400 (1609-1278) /uL [place] # (Auto) 1300 H (0-900) /uL Eos # (Auto) 100 (0-450) /uL Baso # (Auto) 100 (0-100) /uL PT 11.4 (9.4-12.5) SECONDS INR 1.0 (0.9-1.3) APTT 32 (25.1-36.5) SECONDS Sodium 137 (137-145) mmol/L Potassium 3.9 (3.4-5.1) mmol/L Chloride 104 (98-107) mmol/L Carbon Dioxide 26 (22-32) mmol/L BUN 48 H (9-20) mg/dL Creatinine 2.54 H (0.66-1.25) mg/dL Estimated GFR 24 L (>60) mL/min BUN/Creatinine Ratio 18.9 (6-22) Glucose 157 H (80-110) mg/dL Lactate 1.1 (0.7-2.1) mmol/L Calcium 9.9 (8.4-10.2) mg/dL Total Bilirubin 0.6 (0.2-1.3) mg/dL AST 30 (17-59) IU/L ALT 18 (<50) IU/L Alkaline Phosphatase 86 (38-126) U/L Total Creatine Kinase 77 (55-170) U/L Troponin I 0.035 H (0.01-0.034) ng/mL Total Protein 6.3 (6.3-8.2) g/dL Albumin 3.3 L (3.5-5.0) g/dL Globulin 3.0 (1.7-4.1) g/dL Albumin/Globulin Ratio 1.1 (1.0-2.8) Lipase 74 (23-300) U/L Procalcitonin 0.10 (<0.5) ng/mL Urine Color Urine Appearance Urine pH (4.5-8.0) Ur Specific [place] (1.000-1.035) Urine Protein (Negative) Urine Glucose (UA) (Negative) g/dL Urine Ketones (NEGATIVE) Urine Occult Blood (Negative) Urine Nitrate (Negative) Urine Bilirubin (NEGATIVE) Urine Urobilinogen (0.2) E.U./dL Ur Leukocyte Esterase (NEGATIVE) Urine RBC (0-5/HPF) Urine WBC (0-5/HPF) Ur Squamous Epith Cells (0-5/HPF) Urine Bacteria (None) Ur Culture Indicated? Vol Urine Centrifuged Chlamy pneumoniae PCR Not detected (Not Detect) Adenovirus (PCR) Not detected (Not Detect) B.parapertussis DNA PCR Not detected (Not Detecte) Coronavirus OC43 (PCR) Not detected (Not Detect) Coronavirus HKU1 (PCR) Not detected (Not Detect) Coronavirus 229E (PCR) Not detected (Not Detect) SARS-CoV-2 (PCR) Not detected (Not Detecte) Coronavirus NL63 (PCR) Not detected (Not Detect) Human Metapneumovir PCR Not detected (Not Detect) Influenza Type A (PCR) Not detected (Not Detect) Influenza Type B (PCR) Not detected (Not Detect) M. pneumoniae (PCR) Not detected (Not Detect) Parainfluenza 1 (PCR) Not detected (Not Detect) Parainfluenza 2 (PCR) Not detected (Not Detect) Parainfluenza 3 (PCR) Not detected (Not Detect) Parainfluenza 4 (PCR) Not detected (Not Detect) RSV (PCR) Not detected (Not Detect) Entero/Rhino (PCR) Not detected (Not Detect) 12/03/23 12/03/23 Range/Units 13:09 13:26 WBC (4.5-11.0) X10^3/uL RBC (4.5-5.9) X10^6/uL Hgb (13.5-17.5) g/dL Hct (41-53) % MCV (80-100) fL MCH (26-34) PG MCHC (30-36) % RDW (11.6-14.8) % Plt Count (150-400) X10^3/uL Neut % (Auto) (50-75) % Lymph % (Auto) (25-40) % [place] % (Auto) (3-14) % Eos % (Auto) (2-4) % Baso % (Auto) (0-2) % Neut # (Auto) (9171-5920) /uL Lymph # (Auto) (3391-3517) /uL [place] # (Auto) (0-900) /uL Eos # (Auto) (0-450) /uL Baso # (Auto) (0-100) /uL PT (9.4-12.5) SECONDS INR (0.9-1.3) APTT (25.1-36.5) SECONDS Sodium (137-145) mmol/L Potassium (3.4-5.1) mmol/L Chloride (98-107) mmol/L Carbon Dioxide (22-32) mmol/L BUN (9-20) mg/dL Creatinine (0.66-1.25) mg/dL Estimated GFR (>60) mL/min BUN/Creatinine Ratio (6-22) Glucose (80-110) mg/dL Lactate (0.7-2.1) mmol/L Calcium (8.4-10.2) mg/dL Total Bilirubin (0.2-1.3) mg/dL AST (17-59) IU/L ALT (<50) IU/L Alkaline Phosphatase (38-126) U/L Total Creatine Kinase (55-170) U/L Troponin I 0.033 (0.01-0.034) ng/mL Total Protein (6.3-8.2) g/dL Albumin (3.5-5.0) g/dL Globulin (1.7-4.1) g/dL Albumin/Globulin Ratio (1.0-2.8) Lipase (23-300) U/L Procalcitonin (<0.5) ng/mL Urine Color Yellow Urine Appearance Clear Urine pH 5.5 (4.5-8.0) Ur Specific [place] 1.015 (1.000-1.035) Urine Protein Negative (Negative) Urine Glucose (UA) Negative (Negative) g/dL Urine Ketones Negative (NEGATIVE) Urine Occult Blood Negative (Negative) Urine Nitrate Negative (Negative) Urine Bilirubin Negative (NEGATIVE) Urine Urobilinogen 0.2 (0.2) E.U./dL Ur Leukocyte Esterase Negative (NEGATIVE) Urine RBC None seen (0-5/HPF) Urine WBC None seen (0-5/HPF) Ur Squamous Epith Cells None seen (0-5/HPF) Urine Bacteria None seen (None) Ur Culture Indicated? Cult not indicated Vol Urine Centrifuged 10ml (spun) Chlamy pneumoniae PCR (Not Detect) Adenovirus (PCR) (Not Detect) B.parapertussis DNA PCR (Not Detecte) Coronavirus OC43 (PCR) (Not Detect) Coronavirus HKU1 (PCR) (Not Detect) Coronavirus 229E (PCR) (Not Detect) SARS-CoV-2 (PCR) (Not Detecte) Coronavirus NL63 (PCR) (Not Detect) Human Metapneumovir PCR (Not Detect) Influenza Type A (PCR) (Not Detect) Influenza Type B (PCR) (Not Detect) M. pneumoniae (PCR) (Not Detect) Parainfluenza 1 (PCR) (Not Detect) Parainfluenza 2 (PCR) (Not Detect) Parainfluenza 3 (PCR) (Not Detect) Parainfluenza 4 (PCR) (Not Detect) RSV (PCR) (Not Detect) Entero/Rhino (PCR) (Not Detect) Urine Dip Bedside Urine Glucose Negative Bedside Urine Bilirubin - Negative Bedside Urine Ketone - Negative Urine Specific [place] 1.015 Bedside Urine Occult Blood - Negative Bedside Urine pH 6.0 Bedside Urine Protein - Negative Bedside Urine Urobilinogen - Negative Bedside Urine Nitrite - Negative Bedside Urine Leukocytes - Negative Esterase Imaging Data Chest x-ray: Radiologist Impression: PROCEDURE: XR CHEST 1V INDICATIONS: suspected sepsis TECHNIQUE: One view of the chest was acquired. COMPARISON: [facility], CR, XR CHEST 1V, 11/16/2023, 16:42. [facility], CR, XR CHEST 2V, 09/27/2023, 9:03. FINDINGS: Surgical changes and devices: Sternotomy hardware is redemonstrated. Lungs and pleura: Lungs are clear. No pleural effusions or pneumothorax. Mediastinum: Mediastinal contours appear normal. Heart size is normal. Bones and chest wall: No suspicious bony lesions. Overlying soft tissues appear unremarkable. IMPRESSION: No acute cardiopulmonary abnormality is seen. Dictated by: Nolan Valdez M.D. on 12/03/2023 at 11:19 ECG Data Interpretation: EKG 1. Sinus rhythm rate 87 CO interval 232 QRS face 158 QTC 515 artifact noted right bundle-branch block noted Repeat EKGs sinus rhythm 80 rate 84 no acute changes from EKG on November 15 persistent right bundle-branch block MDM Narrative Medical decision making narrative: MDM CC: Weakness Complicating co-morbidities: Lung transplant, chronic kidney disease, diabetes Corroborating data: [ ] Data collected from: Chart and Medical records reviewed: Yes Differential considered: [ ] Exam documented above, pertinent findings include: Patient overall appears nontoxic weekend elderly no acute distress no focal deficits awake alert oriented Lab Test results independently reviewed as above. Pertinent findings: WBC 9.3, hemoglobin 10.5, hematocrit 31.2, platelets 212, sodium 137, potassium 3.9, chloride 104, bicarb 26, creatinine 2.54 previous 1.93 before that 2.1, respiratory panel negative RSV not detected, troponin trending downward always slightly positive today 0.035, 0.033 Independently reviewed EKG as above persistent right bundle-branch no ischemic changes Imaging studies independently reviewed: Chest x-ray reviewed Consultations: [ ] Treatments: IV fluids Tylenol and Zofran Re-evaluations: [ ] Discussion: Patient complaining of weakness no focal deficits. He is noted to be mildly dehydrated on his chronic kidney disease. Slight bump in his creatinine he has given a L of IV fluids. He is taking p.o. fluids. He has no sort of respiratory distress. He has chronically elevated troponins and today is troponin actually trended downward. Vitals are stable. At this time I do not see cause for weakness. Both and he reports sometimes he just falls asleep. Recommend continued outpatient workup and to return as needed. Discharge Plan Departure Patient Disposition: Home Clinical Impression: Weakness Instructions: DI for Muscle Weakness Activity Restrictions/Additional Instructions: *You have been diagnosed with weakness *What to do: At this time it is unclear why you were weak and excessively tired. Blood work is overall reassuring RSV has improved *Continue to take medications as directed *Follow up with your primary care provider in 2-3 days or call [phone] *Return to ER if you should have increasing weakness, falls confusion [or] any new, worsening or concerning symptoms Prescriptions: No Action Adacel(Tdap Adolesn/Adult)(PF) 2 Lf-(2.5-5-3-5 mcg)-5Lf/0.5 mL suspension 0.5 ml IM ONCE Qty: 0.5 0RF Epogen 20,000 unit/2 mL solution 20,000 unit SUBCUT QWEEK valganciclovir 450 mg tablet 450 mg PO .three times weekly Qty: 39 4RF Januvia 50 mg tablet 50 mg PO DAILY Qty: 90 3RF metolazone 2.5 mg tablet 2.5 mg PO DAILY Qty: 90 0RF tamsulosin 0.4 mg capsule 0.4 mg PO DAILY levothyroxine 150 mcg tablet 150 mcg PO DAILY sulfamethoxazole-trimethoprim 800-160 mg tablet 0.5 tab PO Rx Instructions: 1/2 tab sunday, sunday, sunday (DME) Disabled parking permit See Rx Instructions .ROUTE .MEDSUPPLY Qty: 1 0RF Rx Instructions: I find this patient to be medically disabled and qualified for disabled parking as indicated, and signed, on the accompanying disabled parking application for individuals. bumetanide 1 mg tablet 1 mg PO DAILY Qty: 90 3RF Rx Instructions: stop furosemide gabapentin 100 mg capsule 200 mg PO Q8H PRN (Reason: pain) Qty: 90 11RF ferrous sulfate [FeroSul] 325 mg (65 mg iron) tablet 325 mg PO 3XW benzonatate 100 mg capsule 100 mg PO BID-TID PRN (Reason: cough) Qty: 20 2RF prednisone 5 mg tablet 5 mg PO DAILY Patient Comments: TAKE 1 TABLET BY MOUTH EVERY DAY itraconazole 100 mg capsule 100 mg PO BID tacrolimus 1 mg capsule 1 mg PO QAM Patient Comments: TAKE 1 CAPSULE BY MOUTH EVERY DAY IN THE MORNING tacrolimus 0.5 mg capsule 0.5 mg PO QPM Patient Comments: TAKE 1 CAPSULE BY MOUTH EVERY EVENING azithromycin 500 mg tablet 500 mg PO DIRECTED Rx Instructions: TAKE 1 TABLET BY MOUTH EVERY SUNDAY, SUNDAY, AND SUNDAY ascorbic acid (vitamin C) 500 mg capsule PO carvedilol 3.125 mg tablet 3.125 mg PO BID Rx Instructions: must administer with a meal/food sod phos di, mono-K phos mono 250 mg tablet 1 tab PO DAILY omeprazole 20 mg capsule,delayed release(DR/EC) 20 mg PO DAILY Referrals: Shy Angel DO [Primary Care Provider] - Stand Alone Forms: Patient Portal/API
[2023-12-03 11:22] LABS: Add Manual Diff / Slide Review NO; Basophils Absolute Auto 100 /uL (0-100); Basophils Percent Auto 0.7 % (0-2); Eosinophils Absolute Auto 100 /uL (0-450); Eosinophils Percent Auto 1.1 % (2-4); Hematocrit 31.2 % (41-53); Hemoglobin 10.5 g/dL (13.5-17.5); Lymphocytes Absolute Auto 2400 /uL (1100-4500); Lymphocytes Percent Auto 25.9 % (25-40); Mean Corpuscular HGB Conc 33.7 % (30-36); Mean Corpuscular Hemoglobin 34.5 PG (26-34); Mean Corpuscular Volume 102.2 fL (80-100); Monocytes Absolute Auto 1300 /uL (0-900); Monocytes Percent Auto 14.1 % (3-14); Neutrophils Absolute Auto 5400 /uL (1500-7000); Neutrophils Percent Auto 58.2 % (50-75); Platelet Count 212 X10^3/uL (150-400); Red Blood Cell Count 3.05 X10^6/uL (4.5-5.9); Red Cell Distribution Width 14.8 % (11.6-14.8); White Blood Cell Count 9.3 X10^3/uL (4.5-11.0)
[2023-12-03 11:28] LABS: Prothrombin Time 11.4 SECONDS (9.4-12.5)
[2023-12-03 11:31] LABS: PTT Partial Thromboplastin Tim 32 SECONDS (25.1-36.5)
[2023-12-03 11:32] LABS: Lactate (Lactic Acid) 1.1 mmol/L (0.7-2.1)
[2023-12-03 11:34] LABS: Creatine Kinase 77 U/L (55-170)
[2023-12-03 11:34] LABS: Alanine Aminotransferase 18 IU/L (<50); Albumin 3.3 g/dL (3.5-5.0); Albumin Globulin Ratio 1.1 (1.0-2.8); Alkaline Phosphatase 86 U/L (38-126); Aspartate Aminotransferase 30 IU/L (17-59); BUN Creatinine Ratio 18.9 (6-22); Bilirubin Total 0.6 mg/dL (0.2-1.3); Blood Urea Nitrogen 48 mg/dL (9-20); Calcium 9.9 mg/dL (8.4-10.2); Carbon Dioxide 26 mmol/L (22-32); Chloride 104 mmol/L (98-107); Estimated Glomerular Filt Rate 24 mL/min (>60); Glucose 157 mg/dL (80-110); HEMOLYSIS < 15 (0-50); Lipase 74 U/L (23-300); Potassium 3.9 mmol/L (3.4-5.1); Sodium 137 mmol/L (137-145); Total Protein 6.3 g/dL (6.3-8.2)
[2023-12-03] MEDS: SODIUM CHLORIDE 0.9% 1,000 ML 1000 ML IV (11:37)
[2023-12-03 11:45] LABS: Troponin I 0.035 ng/mL (0.01-0.034)
[2023-12-03 12:12] LABS: Adenovirus Not Detected (Not Detect); B. parapertussis Not Detected (Not Detecte); Bordetella pertussis Not Detected (Not Detect); Chlamydophila pneumoniae Not Detected (Not Detect); Coronavirus 229E Not Detected (Not Detect); Coronavirus HKU1 Not Detected (Not Detect); Coronavirus NL 63 Not Detected (Not Detect); Coronavirus OC43 Not Detected (Not Detect); Human Metapneumovirus Not Detected (Not Detect); Human Rhinovirus/Enterovirus Not Detected (Not Detect); Influenza A Not Detected (Not Detect); Influenza B Not Detected (Not Detect); Mycoplasma pneumoniae Not Detected (Not Detect); Parainfluenza Virus 1 Not Detected (Not Detect); Parainfluenza Virus 2 Not Detected (Not Detect); Parainfluenza Virus 3 Not Detected (Not Detect); Parainfluenza Virus 4 Not Detected (Not Detect); Respiratory Syncytial Virus Not Detected (Not Detect); SARS- CoV-2 Not Detected (Not Detecte)
[2023-12-03 13:18] LABS: Appearance Urine UA CLEAR; Bilirubin Urine UA NEGATIVE (NEGATIVE); Color Urine UA YELLOW; Glucose Urine UA NEGATIVE (Negative); Ketones Urine UA NEGATIVE (NEGATIVE); Leukocyte Esterase Urine UA NEGATIVE (NEGATIVE); Nitrite Urine UA NEGATIVE (Negative); Occult Blood Urine UA NEGATIVE (Negative); Protein Urine UA NEGATIVE (Negative); Specific Gravity Urine UA 1.015 (1.000-1.035); Urobilinogen Urine UA 0.2 E.U./dL (0.2); pH Urine UA 5.5 (4.5-8.0)
[2023-12-03 13:19] LABS: Urine Volume 10mL (spun)
[2023-12-03 13:21] LABS: Bacteria Urine None Seen; Culture Indicated Urine Cult Not Indicated; RBC Urine None Seen (0-5/HPF); Squamous Epithelial Cell Urine None Seen (0-5/HPF); WBC Urine None Seen (0-5/HPF)
[2023-12-03] MEDS: ACETAMINOPHEN 325 MG TABLET 650 MG PO (13:32)
[2023-12-03 13:56] LABS: Troponin I 0.033 ng/mL (0.01-0.034)
== END 2023-12-03 14:37 | disposition home or self-care (01) ==
PROVIDERS: Emergency Provider Emergency Medicine; PCP Family Medicine
DX: R53.1 Weakness (principal); M25.552 Pain in left hip; H53.9 Unspecified visual disturbance; Z79.899 Other long term (current) drug therapy; Z20.822 Contact with and (suspected) exposure to COVID-19
CPT/HCPCS: 36415; 70450; 71045; 80053; 81001; 81003; 82550; 83605; 83690; 84145; 84484; 85025; 85610; 85730; 87040; 87633; 93005; 93010; 96360; 99284

== ENCOUNTER 2023-12-10 12:18 | Observation (INO) | payer MEDICARE, SELFPAY ==
[2021-12-26 16:33] VITALS: BMI 27.4
[2023-12-10] VITALS (24 sets, daily range): BP systolic 89–170; BP diastolic 56–87; PULSE 80–93; RESP 11–28; TEMP 36.7–37; O2SAT 91–100; BMI 27.9
--- NOTE | 2023-12-10 12:33 | DI.RAD.S_ITS ---
PROCEDURE: XR CHEST 1V INDICATIONS: chest pain TECHNIQUE: One view of the chest was acquired. COMPARISON: [facility], CR, XR CHEST 1V, 12/03/2023, 11:06. [facility], CR, XR CHEST 1V, 11/16/2023, 16:42. FINDINGS: Surgical changes and devices: Sternotomy hardware is redemonstrated Lungs and pleura: Low lung volumes. Mild prominence of the interstitial markings. No pleural effusions or pneumothorax. Mediastinum: Mediastinal contours appear normal. Heart size is normal. Bones and chest wall: No suspicious bony lesions. Overlying soft tissues appear unremarkable. IMPRESSION: Low lung volumes. There is mild prominence of interstitial markings which may be secondary to low lung volumes. Correlate for edema. Otherwise, no focal pulmonary consolidations. Dictated by: Nolan Valdez M.D. on 12/10/2023 at 13:18 Approved by: Nolan Valdez M.D. on 12/10/2023 at 13:20
[2023-12-10] MEDS: SODIUM CHLORIDE 0.9% 1,000 ML 1000 ML IV (12:52)
[2023-12-10 12:53] LABS: Add Manual Diff / Slide Review NO; Basophils Absolute Auto 100 /uL (0-100); Basophils Percent Auto 0.8 % (0-2); Eosinophils Absolute Auto 200 /uL (0-450); Eosinophils Percent Auto 2.6 % (2-4); Hematocrit 32.4 % (41-53); Hemoglobin 10.8 g/dL (13.5-17.5); Lymphocytes Absolute Auto 2600 /uL (1100-4500); Lymphocytes Percent Auto 32.5 % (25-40); Mean Corpuscular HGB Conc 33.2 % (30-36); Mean Corpuscular Hemoglobin 34.1 PG (26-34); Mean Corpuscular Volume 102.9 fL (80-100); Monocytes Absolute Auto 1000 /uL (0-900); Neutrophils Absolute Auto 4200 /uL (1500-7000); Neutrophils Percent Auto 52.1 % (50-75); Platelet Count 172 X10^3/uL (150-400); Red Blood Cell Count 3.15 X10^6/uL (4.5-5.9); Red Cell Distribution Width 14.7 % (11.6-14.8); White Blood Cell Count 8.1 X10^3/uL (4.5-11.0)
[2023-12-10 13:01] LABS: Prothrombin Time 11.6 SECONDS (9.4-12.5)
[2023-12-10 13:04] LABS: PTT Partial Thromboplastin Tim 33 SECONDS (25.1-36.5)
[2023-12-10 13:08] LABS: HEMOLYSIS < 15 (0-50)
[2023-12-10 13:13] LABS: Alanine Aminotransferase 18 IU/L (<50); Albumin 3.4 g/dL (3.5-5.0); Albumin Globulin Ratio 1.1 (1.0-2.8); Alkaline Phosphatase 81 U/L (38-126); Aspartate Aminotransferase 37 IU/L (17-59); BUN Creatinine Ratio 18.5 (6-22); Bilirubin Total 0.4 mg/dL (0.2-1.3); Blood Urea Nitrogen 42 mg/dL (9-20); Calcium 10.5 mg/dL (8.4-10.2); Carbon Dioxide 23 mmol/L (22-32); Chloride 107 mmol/L (98-107); Creatine Kinase 93 U/L (55-170); Estimated Glomerular Filt Rate 28 mL/min (>60); Glucose 154 mg/dL (80-110); Lactate (Lactic Acid) 1.4 mmol/L (0.7-2.1); Lipase 80 U/L (23-300); Magnesium 1.7 mg/dL (1.6-2.3); Sodium 136 mmol/L (137-145); Total Protein 6.4 g/dL (6.3-8.2)
[2023-12-10 13:16] LABS: Potassium 3.7 mmol/L (3.4-5.1)
[2023-12-10 13:37] LABS: Procalcitonin 0.09 ng/mL (<0.5)
--- NOTE | 2023-12-10 13:53 | DI.CT.S_ITS ---
PROCEDURE: CT KIDNEY URETER BLADDER (KUB) INDICATIONS: LLQ pain, progressive weakness x 1 month TECHNIQUE: Axial sections were acquired from the lung bases to the pubic symphysis. Coronal and sagittal reformats were performed. For radiation dose reduction, the following was used: automated exposure control, adjustment of mA and/or kV according to patient size. COMPARISON: [facility], CR, XR CHEST 2V, 09/27/2023, 9:03. CT, CT CHEST ABDOMEN WO CON, 05/10/2022, 11:07. CT, CT ABDOMEN PELVIS W CON, 12/26/2021, 12:33. FINDINGS: Image quality: Portions of the lower pelvis are suboptimally evaluated secondary to metallic streak artifact from spinal fusion hardware. Lower Chest: Heart is enlarged. URINARY: Right Kidney: No stones or hydronephrosis. Renal atrophy. Simple cysts. Right Ureter: No hydroureter. Left Kidney: No stones or hydronephrosis. Renal atrophy. Left Ureter: No hydroureter. Bladder: Normal wall thickness. No stones. ABDOMEN: Liver: No contour-deforming solid mass. Gallbladder: Removed. Biliary ducts: No biliary dilation. Pancreas: No ductal dilation. Spleen: Size is within normal limits. Adrenal Glands: No adrenal nodules. Stomach and Bowel: Colonic diverticular present. There is thickening of the distal descending/proximal sigmoid colon with areas of pericolonic inflammatory change. No free fluid or free air. Peritoneum: No abnormal intraperitoneal fluid. No free air. Ventral Wall: No hernia. Abdominal Nodes: No enlarged retroperitoneal or mesenteric lymph nodes. Vessels: Aorta and inferior vena cava are normal in size. PELVIS: Pelvic Organs: Unremarkable. Pelvic Nodes: Unremarkable. Miscellaneous: Bilateral fat containing inguinal hernias are seen. Bones: Multilevel degenerative changes are present within the lumbar spine as well as fusion from L2 through L4. L1 compression deformity is unchanged. IMPRESSION: Distal descending/proximal sigmoid colonic thickening with inflammatory change in diverticula most consistent with colitis secondary to diverticulitis. No evidence of free air or free fluid. Interval follow-up is recommended to document resolution exclude presence of underlying mass lesion. Dictated by: Amira Kovacs M.D. on 12/10/2023 at 14:58 Approved by: Amira Kovacs M.D. on 12/10/2023 at 15:00
[2023-12-10 13:55] LABS: NT-proBNP (BNP-Adult 18+) 1580 pg/mL (<450); Troponin I 0.022 ng/mL (0.01-0.034)
--- NOTE | 2023-12-10 13:58 | ED.WEAKNESS ---
HPI - Weakness General Chief complaint: Weakness Stated complaint: weakness, slurred speech, fall Time Seen by Provider: 12/10/23 12:49 Source: patient and family Mode of arrival: Wheelchair History of Present Illness HPI Narrative: 83-year-old male with a history of pulmonary fibrosis status post lung transplant in 2009, chronic kidney disease, diabetes, hypertension, hypothyroidism who presents with complaint of increasing weakness patient has had 3 visits in the past 25 days. Patient noted episode of blurry vision about 25 days ago it resolved and he had a fall 2 days later which is when he presented initially to the ED. Since then he has had progressive generalized weakness. No persistent vision changes, no headaches, no fevers. He states he is always cold but no chills or rigors. He has a little short of breath, denies any chest pain or pressure. States he has always a little short of breath. Denies any nausea or vomiting. He is chronically constipated last bowel movement was a couple days ago at least. He states no flatus. He does not appreciate any distention nor does his family. States he has been urinating regularly with no dysuria urgency or frequency. Denies any new swelling in extremities. He has had some increasing confusion answering questions little bit slower. Family states his speech is sometimes seems a little slurred but they have not appreciate any other acute neurologic changes. Patient is still on tacrolimus believes he had a recheck about a month ago. He is still managing his own medications. Patient has not had any other surgeries besides his prior lung transplant. No known allergies. No tobacco, alcohol or recreational drugs. Related Data Home Medications Medication Instructions Recorded Confirmed prednisone 5 mg tablet 5 mg PO DAILY 09/18/20 12/10/23 tacrolimus 0.5 mg capsule, 0.5 mg PO QPM 09/18/20 12/10/23 immediate-release tacrolimus 1 mg capsule, 1 mg PO QAM 09/18/20 12/10/23 immediate-release tamsulosin 0.4 mg capsule 0.4 mg PO DAILY 10/30/22 12/10/23 epoetin hanh 20,000 unit/2 mL See Rx Instructions .Route .COMPLEX 11/16/22 12/10/23 injection solution (Epogen) ascorbic acid (vitamin C) 500 mg 500 mg PO DAILY 04/17/23 12/10/23 capsule carvedilol 3.125 mg tablet 3.125 mg PO BID 04/17/23 12/10/23 omeprazole 20 mg capsule,delayed 20 mg PO DAILY 04/17/23 12/10/23 release sodium di- and 1 tab PO DAILY 04/17/23 12/10/23 monophosphate-potassium phos monobasic 250 mg tablet levothyroxine 150 mcg tablet 150 mcg PO DAILY 04/30/23 12/10/23 sulfamethoxazole 800 See Rx Instructions .Route .COMPLEX 04/30/23 12/10/23 mg-trimethoprim 160 mg tablet ferrous sulfate 325 mg (65 mg 325 mg PO 3XW 09/26/23 12/10/23 iron) tablet (FeroSul) azithromycin 500 mg tablet 500 mg PO 3XW 12/10/23 12/10/23 itraconazole 100 mg capsule 100 mg PO BID 12/10/23 12/10/23 Previous Rx's Medication Instructions Recorded gabapentin 100 mg capsule 200 mg (2 x 100 mg) PO Q8H PRN 05/22/23 pain #90 caps valganciclovir 450 mg tablet 450 mg PO .three times weekly CMV 08/29/23 prophylaxis #39 tabs bumetanide 1 mg tablet 1 mg PO DAILY #90 tabs 10/22/23 sitagliptin phosphate 50 mg tablet 50 mg PO DAILY #90 tabs 10/24/23 (Januvia) Allergies Allergy/AdvReac Type Severity Reaction Status Date / Time No Known Drug Allergies Allergy Verified 12/10/23 12:31 Review of Systems Review of Systems ROS Unobtainable: All systems reviewed & are unremarkable except as noted in HPI and below Patient History Medical History Encounter for subsequent annual wellness visit (AWV) in Medicare patient Macrocytosis CKD (chronic kidney disease) stage 3, GFR 30-59 ml/min Chronic low back pain Hearing impaired IPF (idiopathic pulmonary fibrosis) Hypothyroid Diabetes Hyperlipidemia Hypertension Coronary artery disease Anemia Tubular adenoma of colon Surgical History Status post lung transplantation Hx of cholecystectomy Hx of bilateral cataract extraction H/O lung transplant (2009) Family History Father Patient denies significant medical history Mother Patient denies significant medical history Social History marital status: household members: spouse Smoking Status: Former smoker alcohol intake: former Smoking Status: Former smoker alcohol intake frequency: holidays/special occasions only Substance Use Type: does not use Exam Narrative Exam Narrative: GEN: Elderly appearing male, alert and oriented. Does occasionally answer questions inappropriately but overall clear speech, patient appears to be in mild distress. Patient appears to feel unwell. HEENT: Atraumatic, pupils are equal round reactive to light, extraocular movements are intact, nares are clear, TMs are clear with no fluid, there is no conjunctival pallor. Throat is clear without any exudates, erythema, tonsillar enlargement or uvular deviation, no facial droop. HEART: Regular rate and rhythm without murmur, clicks, rubs. LUNGS:Lungs clear to auscultation, no wheezes, rales, crackles, chest moves symmetrically ABD:bowel sounds normal, soft, left lower quadrant tenderness mildly distended,, no guarding, rebound, rigidity, no masses noted, no hepatosplenomegaly :No CVA tenderness MSCL: Non-tender, no muscle atrophy, globally weak, full range of motion NEURO:CN 2-12 intact, sensation normal. SKIN: No rash, erythema or other skin changes Initial Vital Signs Initial Vital Signs: Vital Signs Temperature 98.4 F 12/10/23 12:27 Pulse Rate 87 12/10/23 12:27 Respiratory Rate 20 12/10/23 12:27 Blood Pressure 128/62 12/10/23 12:27 Pulse Oximetry 99 12/10/23 12:27 Oxygen Delivery Method Room Air 12/10/23 12:27 Course Orders Ordered: ED Orders 12/10/23 12:33 XR chest 1V Stat EKG-12 Lead Stat 12/10/23 12:40 BNP [NT-proBNP (BNP-Adult 18+)] Stat Complete Blood Count AUTO DIFF Stat Comprehensive Metabolic Panel Stat Lactate (Lactic Acid) Stat Lipase Stat Magnesium Stat PTT Partial Thromboplastin Kevin Stat Procalcitonin Stat Prothrombin Time INR Stat Tacrolimus Stat Troponin & CK Cardiac Panel Stat 12/10/23 13:03 Blood Culture Stat 12/10/23 13:53 CT kidney ureter bladder (KUB) Stat 12/10/23 14:04 Respiratory Panel (Film Array) Stat 12/10/23 14:19 Urinalysis and Microscopic Stat 12/10/23 16:16 Consult to Physical Therapy Evaluate & Treat Acetaminophen (Acetaminophen 325 Mg Tablet) 650 mg PO Q6H PRN PRN Reason: Fever/Mild Pain (1-3) Heparin Sodium (Porcine) (Heparin 5,000 Unit/Ml Vial) 5,000 unit SUBCUT BID HARI Sodium Chloride (Normal Saline 0.9%) 1,000 mls @ 100 mls/hr IV CONT HARI Stop: 12/11/23 05:29 Last Admin: 12/10/23 18:01 Dose: 100 mls/hr Documented By: NILSA Magnesium Sulfate (Magnesium Sulfate) 2 gm in 50 mls @ 25 mls/hr IV NOW ONE Stop: 12/10/23 19:28 Last Admin: 12/10/23 18:17 Dose: 25 mls/hr Documented By: HCW Co-signed By: NILSA Piperacillin Sod/Tazobactam (Sod 3.375 gm/ Sodium Chloride) 100 mls @ 25 mls/hr IV Q8H HARI Dextrose (D10w) 100 mls @ 999 mls/hr IV PRN PRN PRN Reason: Hypoglycemia Insulin Human Lispro (Insulin Lispro 100 Unit/Ml 3ml Vial) 0 unit SUBCUT ACHS HARI; Protocol Melatonin (Melatonin 3 Mg Tablet) 6 mg PO BEDTIME PRN PRN Reason: Insomnia Naloxone HCl (Naloxone 0.4 Mg/Ml Vial) 0.2 mg IV Q2MIN PRN PRN Reason: Opiate Reversal Ondansetron HCl (Ondansetron 4 Mg/2 Ml Inj) 4 mg IV Q4HR PRN PRN Reason: Nausea And Vomiting Polyethylene Glycol (Polyethylene Glycol 3350 17 Gm Powd.Pack) 17 gm PO DAILY PRN PRN Reason: Constipation Sennosides (Sennosides 8.6 Mg Tablet) 8.6 mg PO BID PRN PRN Reason: Constipation Discontinued Medications Sodium Chloride (Normal Saline 0.9%) 1,000 mls @ 1,000 mls/hr IV BOLUS ONE Stop: 12/10/23 13:47 Last Infusion: 12/10/23 13:54 Dose: Infused Documented By: Admin: 12/10/23 12:52 Dose: 1,000 mls/hr Documented By: HECTOR Sodium Chloride (Normal Saline 0.9%) 2,121 mls @ 707 mls/hr 30 ml/kg infuse over 3 hr (2121 ml) IV NOW ONE Stop: 12/10/23 18:19 Piperacillin Sod/Tazobactam (Sod 4.5 gm/ Sodium Chloride) 100 mls @ 200 mls/hr IV NOW ONE Stop: 12/10/23 16:22 Last Admin: 12/10/23 16:39 Dose: 200 mls/hr Documented By: CESARIO Vital Signs Vital signs: Vital Signs - 8 hr 12/10/23 12:27 12/10/23 12:28 12/10/23 12:30 Temperature 98.4 F Pulse Rate 87 88 85 Respiratory Rate 20 Blood Pressure 128/62 Pulse Oximetry 99 99 99 Oxygen Delivery Method Room Air 12/10/23 12:31 12/10/23 12:31 12/10/23 12:35 Temperature Pulse Rate 84 82 Respiratory Rate 13 19 Blood Pressure 128/62 Pulse Oximetry 99 98 Oxygen Delivery Method 12/10/23 12:38 12/10/23 12:38 12/10/23 12:40 Temperature Pulse Rate 83 83 Respiratory Rate 17 17 Blood Pressure 94/57 L Pulse Oximetry 99 99 Oxygen Delivery Method 12/10/23 12:45 12/10/23 12:45 12/10/23 12:50 Temperature Pulse Rate 84 Respiratory Rate 22 Blood Pressure 89/56 L 119/57 L Pulse Oximetry 97 Oxygen Delivery Method Room Air 12/10/23 12:50 12/10/23 12:55 12/10/23 13:00 Temperature Pulse Rate 82 82 Respiratory Rate 22 28 H Blood Pressure 115/59 L Pulse Oximetry 97 97 Oxygen Delivery Method 12/10/23 13:00 12/10/23 13:10 12/10/23 13:10 Temperature Pulse Rate 85 80 Respiratory Rate 16 12 Blood Pressure 107/60 Pulse Oximetry 100 98 Oxygen Delivery Method 12/10/23 13:20 12/10/23 13:20 12/10/23 13:30 Temperature Pulse Rate 80 82 Respiratory Rate 15 16 Blood Pressure 115/58 L Pulse Oximetry 98 97 Oxygen Delivery Method 12/10/23 13:30 12/10/23 13:40 12/10/23 13:40 Temperature Pulse Rate 80 Respiratory Rate 17 Blood Pressure 131/62 129/61 Pulse Oximetry 97 Oxygen Delivery Method 12/10/23 13:50 12/10/23 13:50 12/10/23 14:00 Temperature Pulse Rate 80 Respiratory Rate 14 Blood Pressure 118/60 144/70 H Pulse Oximetry 98 Oxygen Delivery Method 12/10/23 14:00 12/10/23 15:34 12/10/23 15:34 Temperature Pulse Rate 89 83 Respiratory Rate 20 14 Blood Pressure 146/74 H Pulse Oximetry 99 97 Oxygen Delivery Method 12/10/23 16:00 12/10/23 16:00 Temperature Pulse Rate 82 Respiratory Rate 11 L Blood Pressure 161/72 H Pulse Oximetry 91 Oxygen Delivery Method MDM - Weakness Lab Data 12/10/23 12:40 12/10/23 12:40 Labs: Lab Results 12/10/23 12/10/23 12/10/23 Range/Units 12:40 14:04 14:19 WBC 8.1 (4.5-11.0) X10^3/uL RBC 3.15 L (4.5-5.9) X10^6/uL Hgb 10.8 L (13.5-17.5) g/dL Hct 32.4 L (41-53) % MCV 102.9 H (80-100) fL MCH 34.1 H (26-34) PG MCHC 33.2 (30-36) % RDW 14.7 (11.6-14.8) % Plt Count 172 (150-400) X10^3/uL Neut % (Auto) 52.1 (50-75) % Lymph % (Auto) 32.5 (25-40) % [place] % (Auto) 12.0 (3-14) % Eos % (Auto) 2.6 (2-4) % Baso % (Auto) 0.8 (0-2) % Neut # (Auto) 4200 (9210-9995) /uL Lymph # (Auto) 2600 (5797-4787) /uL [place] # (Auto) 1000 H (0-900) /uL Eos # (Auto) 200 (0-450) /uL Baso # (Auto) 100 (0-100) /uL PT 11.6 (9.4-12.5) SECONDS INR 1.0 (0.9-1.3) APTT 33 (25.1-36.5) SECONDS Sodium 136 L (137-145) mmol/L Potassium 3.7 (3.4-5.1) mmol/L Chloride 107 (98-107) mmol/L Carbon Dioxide 23 (22-32) mmol/L BUN 42 H (9-20) mg/dL Creatinine 2.27 H (0.66-1.25) mg/dL Estimated GFR 28 L (>60) mL/min BUN/Creatinine Ratio 18.5 (6-22) Glucose 154 H (80-110) mg/dL Hemoglobin A1c 6.8 H (4.0-6.0) % Lactate 1.4 (0.7-2.1) mmol/L Calcium 10.5 H (8.4-10.2) mg/dL Magnesium 1.7 (1.6-2.3) mg/dL Total Bilirubin 0.4 (0.2-1.3) mg/dL AST 37 (17-59) IU/L ALT 18 (<50) IU/L Alkaline Phosphatase 81 (38-126) U/L Total Creatine Kinase 93 (55-170) U/L Troponin I 0.022 (0.01-0.034) ng/mL NT-Pro-B Natriuret Pep 1580 H (<450) pg/mL Total Protein 6.4 (6.3-8.2) g/dL Albumin 3.4 L (3.5-5.0) g/dL Globulin 3.0 (1.7-4.1) g/dL Albumin/Globulin Ratio 1.1 (1.0-2.8) Lipase 80 (23-300) U/L Procalcitonin 0.09 (<0.5) ng/mL Urine Color Yellow Urine Appearance Clear Urine pH 5.0 (4.5-8.0) Ur Specific [place] 1.025 (1.000-1.035) Urine Protein Negative (Negative) Urine Glucose (UA) Negative (Negative) g/dL Urine Ketones Negative (NEGATIVE) Urine Occult Blood Negative (Negative) Urine Nitrate Negative (Negative) Urine Bilirubin Negative (NEGATIVE) Urine Urobilinogen 0.2 (0.2) E.U./dL Ur Leukocyte Esterase Negative (NEGATIVE) Urine RBC None seen (0-5/HPF) Urine WBC None seen (0-5/HPF) Ur Squamous Epith Cells None seen (0-5/HPF) Urine Bacteria None seen (None) Ur Culture Indicated? Cult not indicated Vol Urine Centrifuged 10ml (spun) Chlamy pneumoniae PCR Not detected (Not Detect) Adenovirus (PCR) Not detected (Not Detect) B.parapertussis DNA PCR Not detected (Not Detecte) Coronavirus OC43 (PCR) Not detected (Not Detect) Coronavirus HKU1 (PCR) Not detected (Not Detect) Coronavirus 229E (PCR) Not detected (Not Detect) SARS-CoV-2 (PCR) Not detected (Not Detecte) Coronavirus NL63 (PCR) Not detected (Not Detect) Human Metapneumovir PCR Not detected (Not Detect) Influenza Type A (PCR) Not detected (Not Detect) Influenza Type B (PCR) Not detected (Not Detect) M. pneumoniae (PCR) Not detected (Not Detect) Parainfluenza 1 (PCR) Not detected (Not Detect) Parainfluenza 2 (PCR) Not detected (Not Detect) Parainfluenza 3 (PCR) Not detected (Not Detect) Parainfluenza 4 (PCR) Not detected (Not Detect) RSV (PCR) Not detected (Not Detect) Entero/Rhino (PCR) Not detected (Not Detect) Urine Dip Bedside Urine Glucose Negative Bedside Urine Bilirubin - Negative Bedside Urine Ketone - Negative Urine Specific [place] 1.025 Bedside Urine Occult Blood - Negative Bedside Urine pH 5.5 Bedside Urine Protein - Negative Bedside Urine Urobilinogen - Negative Bedside Urine Nitrite - Negative Bedside Urine Leukocytes - Negative Esterase Imaging Data Chest x-ray: Radiologist Impression: Close Chest X-Ray (Signed) ValdezNolan cash - 12/10/[address] (Signed) Nolan Valdez - 12/03/23 Chest X-Ray (Signed) Valdez,Nolan - 12/03/23 Chest X-Ray (Signed) Annita Eaton - 11/16/23 Chest X-Ray (Signed) Annita Eaton - 09/27/23 Knee X-Ray (Signed) Be Cabrera - 05/14/23 PFT Result 05/09/23 Hip X-Ray (Signed) Amira Kovacs - 04/30/23 Ribs X-Ray (Signed) Horace Patel - 03/26/23 Elbow X-Ray (Signed) Horace Patel - 03/26/23 Echocardiogram Ultrasound (Signed) Len Hills - 10/19/22 Abdomen Ultrasound (Signed) Yazan Mcallister - 10/10/22 Chest/Abdomen CT (Signed) DavisonEliceo - 05/10/22 Barium Swallow X-Ray (Signed) ZafarLevon parikh - 05/10/22 PFT Result 02/17/22 Telemetry Strips 12/26/21 Abdomen/Pelvis CT (Signed) [place] - 12/26/21 Abdomen X-Ray (Signed) Yazan Mcallister - 12/26/21 Telemetry Strips 12/20/21 Lumbar Spine X-Ray (Signed) Horace Patel - 12/20/[address] (Signed) Yazan Mcallister - 12/19/[address] (Signed) Jeri Jean - 12/02/21 Lumbar Spine MRI (Signed) Horace Patel - 11/20/21 Lumbar Spine X-Ray (Signed) Amira Kovacs - 10/29/21 Abdomen X-Ray (Signed) Yazan Mcallister - 09/24/21 Telemetry Strips 09/17/21 Chest CTA (Signed) [place] - 09/17/21 Chest X-Ray (Signed) [place] - 09/16/21 PFT Result 08/04/21 Chest X-Ray (Signed) Dc Scott - 07/26/21 PFT Result 11/11/20 Chest X-Ray (Signed) [place] Bernstein - 11/11/[address] (Signed) Yazan Mcallister - 09/18/20 Chest X-Ray (Signed) Yazan Mcallister - 09/18/20 Echocardiogram Ultrasound (Signed) Kirby Liang - 05/26/20 Renal Ultrasound (Signed) Harsha Feliciano - 04/23/20 Chest X-Ray (Signed) Yazan Mcallister - 06/14/[address] [address] XRay Report Signed Patient: Darryl Jacobs MR#: [id number] : 1940 Acct:[id number] Age/Sex: 83 / M Date of Service: 12/10/23 Loc: ED Accession Number: [id number] Procedure: XR chest 1V Ordering Provider: Alejandrina Garcia D.O. PROCEDURE: XR CHEST 1V INDICATIONS: chest pain TECHNIQUE: One view of the chest was acquired. COMPARISON: [facility], CR, XR CHEST 1V, 12/03/2023, 11:06. [facility], CR, XR CHEST 1V, 11/16/2023, 16:42. FINDINGS: Surgical changes and devices: Sternotomy hardware is redemonstrated Lungs and pleura: Low lung volumes. Mild prominence of the interstitial markings. No pleural effusions or pneumothorax. Mediastinum: Mediastinal contours appear normal. Heart size is normal. Bones and chest wall: No suspicious bony lesions. Overlying soft tissues appear unremarkable. IMPRESSION: Low lung volumes. There is mild prominence of interstitial markings which may be secondary to low lung volumes. Correlate for edema. Otherwise, no focal pulmonary consolidations. Dictated by: Nolan Valdez M.D. on 12/10/2023 at 13:18 Approved by: Nolan Valdez M.D. on 12/10/2023 at 13:20 CT scan - abdomen/pelvis: Radiologist Impression: [place] [address] CT Scan Report Signed Patient: Darryl Jacobs MR#: [id number] : 1940 Acct:[id number] Age/Sex: 83 / M Date of Service: 12/10/23 Loc: ED Accession Number: [id number] Procedure: CT kidney ureter bladder (KUB) Ordering Provider: Alejandrina Garcia D.O. PROCEDURE: CT KIDNEY URETER BLADDER (KUB) INDICATIONS: LLQ pain, progressive weakness x 1 month TECHNIQUE: Axial sections were acquired from the lung bases to the pubic symphysis. Coronal and sagittal reformats were performed. For radiation dose reduction, the following was used: automated exposure control, adjustment of mA and/or kV according to patient size. COMPARISON: [facility], CR, XR CHEST 2V, 09/27/2023, 9:03. CT, CT CHEST ABDOMEN WO CON, 05/10/2022, 11:07. CT, CT ABDOMEN PELVIS W CON, 12/26/2021, 12:33. FINDINGS: Image quality: Portions of the lower pelvis are suboptimally evaluated secondary to metallic streak artifact from spinal fusion hardware. Lower Chest: Heart is enlarged. URINARY: Right Kidney: No stones or hydronephrosis. Renal atrophy. Simple cysts. Right Ureter: No hydroureter. Left Kidney: No stones or hydronephrosis. Renal atrophy. Left Ureter: No hydroureter. Bladder: Normal wall thickness. No stones. ABDOMEN: Liver: No contour-deforming solid mass. Gallbladder: Removed. Biliary ducts: No biliary dilation. Pancreas: No ductal dilation. Spleen: Size is within normal limits. Adrenal Glands: No adrenal nodules. Stomach and Bowel: Colonic diverticular present. There is thickening of the distal descending/proximal sigmoid colon with areas of pericolonic inflammatory change. No free fluid or free air. Peritoneum: No abnormal intraperitoneal fluid. No free air. Ventral Wall: No hernia. Abdominal Nodes: No enlarged retroperitoneal or mesenteric lymph nodes. Vessels: Aorta and inferior vena cava are normal in size. PELVIS: Pelvic Organs: Unremarkable. Pelvic Nodes: Unremarkable. Miscellaneous: Bilateral fat containing inguinal hernias are seen. Bones: Multilevel degenerative changes are present within the lumbar spine as well as fusion from L2 through L4. L1 compression deformity is unchanged. IMPRESSION: Distal descending/proximal sigmoid colonic thickening with inflammatory change in diverticula most consistent with colitis secondary to diverticulitis. No evidence of free air or free fluid. Interval follow-up is recommended to document resolution exclude presence of underlying mass lesion. Dictated by: Amira Kovacs M.D. on 12/10/2023 at 14:58 Approved by: Amira Kovacs M.D. on 12/10/2023 at 15:00 ECG Data Attestation: I personally reviewed and interpreted this ECG as follows: Prior ECG tracings: available for review Interpretation: Sinus rhythm first-degree AV block right bundle-branch, left anterior fascicular block, rate 83 NM 218 QRS of 160 QTC of 493. No acute ST changes appreciated patient has prior 12/03/2019 which appears similar. MDM Narrative Medical decision making narrative: 83-year-old male history of lung transplant on multiple immune suppressants with reported increasing generalized weakness and generally feeling unwell some mild confusion changes although family describes more slower speech. Patient did have a about 25 days ago has had a head CT 7 days ago which was negative. He has not had any additional falls since but has been generally weak and higher risk for falls. He does not have any other specific complaints is a little bit tender on exam in his left lower quadrant. Has also been constipated without a bowel movement for several days. Has been seen here twice without any clear source of symptoms. Labs show white count 8.1, hemoglobin is 10.8 consistent with priors macrocytic anemia, platelets of 172. Coags are negative, creatinine is 2.27 this seems fairly consistent with priors ranging from 1.9422.54 on his most recent. BUN 42, sodium is 136 potassium of 3 7 normal chloride and CO2 and a glucose of 154, lactate 1.4 calcium is 10.5, lactate 1.7 normal LFTs, troponin is 0.22, BNP of 1580 and procalcitonin less than 0.09 Tacrolimus level was sent, this is a send out level. UA is negative Respiratory panel is negative. Chest x-ray shows low lung volumes bile prominent interstitial markings secondary correlate for edema otherwise no focal pulmonary consolidations. CT KUB shows colitis secondary to diverticulitis. EKG shows no acute changes sinus rhythm with right bundle left anterior fascicular block appears similar to priors. Patient is globally weak. Spoke with Dr. Moreland, hospitalist who accepts for observation. Was going to try to get a PT bowel but they have left for the day. Patient was given dose of IV antibiotic. Patient's family agreeable with plan. Discharge Plan Departure Patient Disposition: Admitted as Observation Clinical Impression: Weakness, Diverticulitis Admit Date/Time: 12/10/23 16:21 Admit Provider: Dennys Moreland
--- NOTE | 2023-12-10 14:07 | PC.NURSE ---
Pt's son expressed the need for [employer] consult. Son is concerned that pt is not able to fully care for himself anymore and worries that his mother is finding difficulty keeping up with caring for pt and showing signs of dementia. Son would like to start the discussion about what the next steps look like for the pt and would like to explore options and resources.
[2023-12-10 14:29] LABS: Appearance Urine UA CLEAR; Bilirubin Urine UA NEGATIVE (NEGATIVE); Color Urine UA YELLOW; Glucose Urine UA NEGATIVE (Negative); Ketones Urine UA NEGATIVE (NEGATIVE); Leukocyte Esterase Urine UA NEGATIVE (NEGATIVE); Nitrite Urine UA NEGATIVE (Negative); Occult Blood Urine UA NEGATIVE (Negative); Protein Urine UA NEGATIVE (Negative); Specific Gravity Urine UA 1.025 (1.000-1.035); Urobilinogen Urine UA 0.2 E.U./dL (0.2)
[2023-12-10 14:31] LABS: Urine Volume 10mL (spun)
[2023-12-10 14:33] LABS: Bacteria Urine None Seen; Culture Indicated Urine Cult Not Indicated; RBC Urine None Seen (0-5/HPF); Squamous Epithelial Cell Urine None Seen (0-5/HPF); WBC Urine None Seen (0-5/HPF)
[2023-12-10 15:17] LABS: Adenovirus Not Detected (Not Detect); B. parapertussis Not Detected (Not Detecte); Bordetella pertussis Not Detected (Not Detect); Chlamydophila pneumoniae Not Detected (Not Detect); Coronavirus 229E Not Detected (Not Detect); Coronavirus HKU1 Not Detected (Not Detect); Coronavirus NL 63 Not Detected (Not Detect); Coronavirus OC43 Not Detected (Not Detect); Human Metapneumovirus Not Detected (Not Detect); Human Rhinovirus/Enterovirus Not Detected (Not Detect); Influenza A Not Detected (Not Detect); Influenza B Not Detected (Not Detect); Mycoplasma pneumoniae Not Detected (Not Detect); Parainfluenza Virus 1 Not Detected (Not Detect); Parainfluenza Virus 2 Not Detected (Not Detect); Parainfluenza Virus 3 Not Detected (Not Detect); Parainfluenza Virus 4 Not Detected (Not Detect); Respiratory Syncytial Virus Not Detected (Not Detect); SARS- CoV-2 Not Detected (Not Detecte)
[2023-12-10] MEDS: PIPERACILLIN/TAZO 4.5 GM in SODIUM CHLORIDE 0.9% 100 ML IV (16:39)
[2023-12-10] MEDS: SODIUM CHLORIDE 0.9% 1,000 ML 100 ML IV (18:01)
[2023-12-10 18:15] LABS: Hemoglobin A1C% w Est Avg Glu 6.8 % (4.0-6.0)
[2023-12-10] MEDS: MAGNESIUM SULFATE 2 GM/50 ML PIGGYBACK IV (18:17)
--- NOTE | 2023-12-10 18:19 | P.HP_ITS ---
History of Present Illness History of Present Illness Date Patient Seen: 12/10/23 Chief complaint: weakness, slurred speech, fall Narrative: Neo is an 82YO M with a history of CKD, and DM2. He is presenting to the ER with a CC of generalized weakness. This is his third visit to the ER over the last month. His symptoms started a 25 days ago. He presented to the ER for the first time on November 19 for generalized weakness and was discharged without a definitive diagnosis. He then came to the ER 2 weeks ago for progressive weakness and was again discharged without a definitive diagnosis. Today, his weakness has progressively worsened. He was brought in via wheelchair and is no longer able to ambulate with a cane or walker. His reports lethargy and that he has been ?sleeping all day.? He denies CP, SOB, NV, abd pain or diarrhea. [facility] Medical History Encounter for subsequent annual wellness visit (AWV) in Medicare patient Macrocytosis CKD (chronic kidney disease) stage 3, GFR 30-59 ml/min Chronic low back pain Hearing impaired IPF (idiopathic pulmonary fibrosis) Hypothyroid Diabetes Hyperlipidemia Hypertension Coronary artery disease Anemia Tubular adenoma of colon Surgical History Status post lung transplantation Hx of cholecystectomy Hx of bilateral cataract extraction H/O lung transplant (2009) Family History Father Patient denies significant medical history Mother Patient denies significant medical history Social History marital status: household members: spouse Smoking Status: Former smoker alcohol intake: former Meds Home Medications and Allergies Home Medications Medication Instructions Recorded Confirmed Type prednisone 5 mg tablet 5 mg PO DAILY 09/18/20 12/10/23 History tacrolimus 0.5 mg capsule, 0.5 mg PO QPM 09/18/20 12/10/23 History immediate-release tacrolimus 1 mg capsule, 1 mg PO QAM 09/18/20 12/10/23 History immediate-release tamsulosin 0.4 mg capsule 0.4 mg PO DAILY 10/30/22 12/10/23 History epoetin hanh 20,000 unit/2 mL See Rx Instructions .Route .COMPLEX 11/16/22 12/10/23 History injection solution (Epogen) ascorbic acid (vitamin C) 500 mg 500 mg PO DAILY 04/17/23 12/10/23 History capsule carvedilol 3.125 mg tablet 3.125 mg PO BID 04/17/23 12/10/23 History omeprazole 20 mg capsule,delayed 20 mg PO DAILY 04/17/23 12/10/23 History release sodium di- and 1 tab PO DAILY 04/17/23 12/10/23 History monophosphate-potassium phos monobasic 250 mg tablet levothyroxine 150 mcg tablet 150 mcg PO DAILY 04/30/23 12/10/23 History sulfamethoxazole 800 See Rx Instructions .Route .COMPLEX 04/30/23 12/10/23 History mg-trimethoprim 160 mg tablet gabapentin 100 mg capsule 200 mg (2 x 100 mg) PO Q8H PRN 05/22/23 12/10/23 Rx pain #90 caps valganciclovir 450 mg tablet 450 mg PO .three times weekly CMV 08/29/23 12/10/23 Rx prophylaxis #39 tabs ferrous sulfate 325 mg (65 mg 325 mg PO 3XW 09/26/23 12/10/23 History iron) tablet (FeroSul) bumetanide 1 mg tablet 1 mg PO DAILY #90 tabs 10/22/23 12/10/23 Rx sitagliptin phosphate 50 mg tablet 50 mg PO DAILY #90 tabs 10/24/23 12/10/23 Rx (Januvia) azithromycin 500 mg tablet 500 mg PO 3XW 12/10/23 12/10/23 History itraconazole 100 mg capsule 100 mg PO BID 12/10/23 12/10/23 History Allergies Allergy/AdvReac Type Severity Reaction Status Date / Time No Known Drug Allergies Allergy Verified 12/10/23 12:31 Review of Systems Review of Systems Narrative: All other systems reviewed with the patient and are negative unless otherwise stated. Exam Vital Signs (past 8 hours): - 12/10/23 12:27 12/10/23 12:28 12/10/23 12:30 Temperature 98.4 F Pulse Rate 87 88 85 Respiratory Rate 20 Blood Pressure 128/62 Pulse Oximetry 99 99 99 Oxygen Delivery Method Room Air 12/10/23 12:31 12/10/23 12:31 12/10/23 12:35 Temperature Pulse Rate 84 82 Respiratory Rate 13 19 Blood Pressure 128/62 Pulse Oximetry 99 98 Oxygen Delivery Method 12/10/23 12:38 12/10/23 12:38 12/10/23 12:40 Temperature Pulse Rate 83 83 Respiratory Rate 17 17 Blood Pressure 94/57 L Pulse Oximetry 99 99 Oxygen Delivery Method 12/10/23 12:45 12/10/23 12:45 12/10/23 12:50 Temperature Pulse Rate 84 Respiratory Rate 22 Blood Pressure 89/56 L 119/57 L Pulse Oximetry 97 Oxygen Delivery Method Room Air 12/10/23 12:50 12/10/23 12:55 12/10/23 13:00 Temperature Pulse Rate 82 82 Respiratory Rate 22 28 H Blood Pressure 115/59 L Pulse Oximetry 97 97 Oxygen Delivery Method 12/10/23 13:00 12/10/23 13:10 12/10/23 13:10 Temperature Pulse Rate 85 80 Respiratory Rate 16 12 Blood Pressure 107/60 Pulse Oximetry 100 98 Oxygen Delivery Method 12/10/23 13:20 12/10/23 13:20 12/10/23 13:30 Temperature Pulse Rate 80 82 Respiratory Rate 15 16 Blood Pressure 115/58 L Pulse Oximetry 98 97 Oxygen Delivery Method 12/10/23 13:30 12/10/23 13:40 12/10/23 13:40 Temperature Pulse Rate 80 Respiratory Rate 17 Blood Pressure 131/62 129/61 Pulse Oximetry 97 Oxygen Delivery Method 12/10/23 13:50 12/10/23 13:50 12/10/23 14:00 Temperature Pulse Rate 80 Respiratory Rate 14 Blood Pressure 118/60 144/70 H Pulse Oximetry 98 Oxygen Delivery Method 12/10/23 14:00 12/10/23 15:34 12/10/23 15:34 Temperature Pulse Rate 89 83 Respiratory Rate 20 14 Blood Pressure 146/74 H Pulse Oximetry 99 97 Oxygen Delivery Method 12/10/23 16:00 12/10/23 16:00 12/10/23 16:30 Temperature Pulse Rate 82 Respiratory Rate 11 L Blood Pressure 161/72 H 144/68 H Pulse Oximetry 91 Oxygen Delivery Method 12/10/23 16:30 Temperature Pulse Rate 83 Respiratory Rate 19 Blood Pressure Pulse Oximetry 97 Oxygen Delivery Method Oxygen Delivery Method Room Air Narrative Exam Narrative: Gen: NAD, AOx3 Neck: trachea midline, no JVD CV: RRR, no murmurs PULM: normal respiratory effort. No wheezes or rhonchi ABD: soft, non-distended, tenderness at LLQ. EXT: warm and well perfused with 1+ pitting edema b/l in the LE. Strength ? b/l in the UE and LE. Mild tremor b/l on his UE. Objective Labs 12/11/23 04:54 12/11/23 04:54 Labs: Laboratory Results - last 24 hr 12/10/23 12/10/23 12/10/23 12:40 14:04 14:19 WBC 8.1 RBC 3.15 L Hgb 10.8 L Hct 32.4 L MCV 102.9 H MCH 34.1 H MCHC 33.2 RDW 14.7 Plt Count 172 Neut % (Auto) 52.1 Lymph % (Auto) 32.5 Anderson % (Auto) 12.0 Eos % (Auto) 2.6 Baso % (Auto) 0.8 Neut # (Auto) 4200 Lymph # (Auto) 2600 Anderson # (Auto) 1000 H Eos # (Auto) 200 Baso # (Auto) 100 PT 11.6 INR 1.0 APTT 33 Sodium 136 L Potassium 3.7 Chloride 107 Carbon Dioxide 23 BUN 42 H Creatinine 2.27 H Estimated GFR 28 L BUN/Creatinine Ratio 18.5 Glucose 154 H Hemoglobin A1c 6.8 H Lactate 1.4 Calcium 10.5 H Magnesium 1.7 Total Bilirubin 0.4 AST 37 ALT 18 Alkaline Phosphatase 81 Total Creatine Kinase 93 Troponin I 0.022 NT-Pro-B Natriuret Pep 1580 H Total Protein 6.4 Albumin 3.4 L Globulin 3.0 Albumin/Globulin Ratio 1.1 Lipase 80 Procalcitonin 0.09 Urine Color Yellow Urine Appearance Clear Urine pH 5.0 Ur Specific Elmer 1.025 Urine Protein Negative Urine Glucose (UA) Negative Urine Ketones Negative Urine Occult Blood Negative Urine Nitrate Negative Urine Bilirubin Negative Urine Urobilinogen 0.2 Ur Leukocyte Esterase Negative Urine RBC None seen Urine WBC None seen Ur Squamous Epith Cells None seen Urine Bacteria None seen Ur Culture Indicated? Cult not indicated Vol Urine Centrifuged 10ml (spun) Chlamy pneumoniae PCR Not detected Adenovirus (PCR) Not detected B.parapertussis DNA PCR Not detected Coronavirus OC43 (PCR) Not detected Coronavirus HKU1 (PCR) Not detected Coronavirus 229E (PCR) Not detected SARS-CoV-2 (PCR) Not detected Coronavirus NL63 (PCR) Not detected Human Metapneumovir PCR Not detected Influenza Type A (PCR) Not detected Influenza Type B (PCR) Not detected M. pneumoniae (PCR) Not detected Parainfluenza 1 (PCR) Not detected Parainfluenza 2 (PCR) Not detected Parainfluenza 3 (PCR) Not detected Parainfluenza 4 (PCR) Not detected RSV (PCR) Not detected Entero/Rhino (PCR) Not detected Assessment & Plan Assessment & Plan narrative: # generalized weakness possibly 2/2 hypothyroidism -labs show anemia but this is chronic -PT and OT evaluation -likely due to low thyroid, as TSH is 41 # diverticulitis -seen on CT, patient with mild LLQ pain -continue zosyn # hypercalcemia -check PTH -likely due to being dry -monitor Ca # THERESA on CKD -IVF -monitor Code status is DNR. DVT prophylaxis with heparin subQ. Proxy is Dieter. I have reviewed home meds and used all available resources to reconcile the home meds. Case discussed with ED physician/APC and patient will be admitted to the hospitalist service for further workup and management. This patient will be admitted as observation and will require less than 2 midnights of hospital time to treat weakness. Quality VTE Deep Vein Thrombosis/Pulmonary Embolism Present on Admission: No
[2023-12-10] MEDS: AZITHROMYCIN 250 MG TABLET 500 MG PO (22:22)
[2023-12-10] MEDS: HEPARIN 5,000 UNIT/ML VIAL 5000 UNIT SUBCUT (22:22)
[2023-12-10] MEDS: TACROLIMUS 0.5 MG CAPSULE PO (22:22)
[2023-12-10] MEDS: carvediloL 3.125 MG TABLET PO (22:34)
[2023-12-11] VITALS (7 sets, daily range): BP systolic 116–140; BP diastolic 65–75; PULSE 72–85; RESP 16–17; TEMP 35.9–36.8; O2SAT 92–99
[2023-12-11] MEDS: PIPERACILLIN/TAZO 3.375 GM in SODIUM CHLORIDE 0.9% 100 ML IV ×3 (02:23→18:05)
[2023-12-11] MEDS: FAMOTIDINE 20 MG TABLET PO (03:19)
[2023-12-11 05:15] LABS: Add Manual Diff / Slide Review NO; Basophils Absolute Auto 100 /uL (0-100); Eosinophils Absolute Auto 200 /uL (0-450); Eosinophils Percent Auto 2.8 % (2-4); Hematocrit 27.6 % (41-53); Hemoglobin 9.4 g/dL (13.5-17.5); Lymphocytes Absolute Auto 2800 /uL (1100-4500); Lymphocytes Percent Auto 37.4 % (25-40); Mean Corpuscular HGB Conc 34.1 % (30-36); Mean Corpuscular Hemoglobin 34.3 PG (26-34); Mean Corpuscular Volume 100.8 fL (80-100); Monocytes Absolute Auto 1000 /uL (0-900); Monocytes Percent Auto 13.7 % (3-14); Neutrophils Absolute Auto 3400 /uL (1500-7000); Neutrophils Percent Auto 45.1 % (50-75); Platelet Count 149 X10^3/uL (150-400); Red Blood Cell Count 2.74 X10^6/uL (4.5-5.9); Red Cell Distribution Width 14.8 % (11.6-14.8); White Blood Cell Count 7.5 X10^3/uL (4.5-11.0)
[2023-12-11 05:29] LABS: Blood Urea Nitrogen 34 mg/dL (9-20); Calcium 9.4 mg/dL (8.4-10.2); Carbon Dioxide 21 mmol/L (22-32); Chloride 111 mmol/L (98-107); Estimated Glomerular Filt Rate 30 mL/min (>60); Glucose 111 mg/dL (80-110); HEMOLYSIS < 15 (0-50); Potassium 3.9 mmol/L (3.4-5.1); Sodium 137 mmol/L (137-145)
[2023-12-11 05:33] LABS: Magnesium 2.1 mg/dL (1.6-2.3)
[2023-12-11] MEDS: PANTOPRAZOLE DR 20 MG TABLET PO (05:59)
[2023-12-11] MEDS: LEVOTHYROXINE 25 MCG TABLET PO (05:59)
--- NOTE | 2023-12-11 06:10 | PC.NURSE ---
pt states he has been constipated lately and not sure why. Pt had a large stool last night.
--- NOTE | 2023-12-11 09:45 | DI.ECHO.S_ITS ---
[place] +---------+ [facility] +---------+ : : [address] : : : : [id number] : : : : Phone: [phone]+ Echocardiogram Report + + :Name: YIMI SINGH Study Date: 12/11/2023 Height: 69 in : :[facility] ReadingLocation: Weight: 189 lb : : Gender: Male BSA: 2.0 m2 : :: 1940 Age: 83 yrs BP: 116/73 mmHg: :Reason For Study: EDEMA PRESENT, WEAKNESS : :Ordering Physician: UMBERTO, : :CATHRYN Gardner Performed By: Alfreda Acevedo : :Referring: CATHRYN SHIPMAN : + + Interpretation Summary 1) Normal left ventricular size with low normal systolic function (EF 50-55%). 2) The inferior wall and the inferoseptum are hypokinetic. 3) Grossly, normal sized right ventricle with mildly reduced function. 4) There is moderate mitral regurgitation. 5) There is mild to moderate aortic stenosis (valve area 1.3cm2, mean gradient 10mmHg, severity ratio 0.34). 6) Compared to the Echo done 10/19/2022, wall motion described above are new on this study and aortic stenosis has progressed from mild to mild-moderate on this study. Procedure: A two-dimensional transthoracic echocardiogram with color flow and Doppler was performed. The study quality was technically adequate. Comparison is made with the echocardiogram of 10/19/2022. The patient was in sinus rhythm with heart rates between 64-79 bpm during the exam. Left Ventricle: The left ventricle is normal in size. There is mild concentric left ventricular hypertrophy. The ejection fraction is estimated to be 50-55%. The inferior wall and the inferoseptum are hypokinetic. Right Ventricle: The right ventricle is not well visualized. The right ventricle is grossly normal size. Right ventricular systolic function is mildly reduced. Atria: The left atrium is severely dilated. Right atrial size is normal. There is no Doppler evidence for an interatrial shunt. Mitral Valve: The mitral valve leaflets appear mildly thickened, but open well. There is moderate mitral annular calcification. There is moderate mitral regurgitation. Aortic Valve: The aortic valve is moderately calcified. The aortic valve is trileaflet. The peak aortic velocity is 2.1 m/sec. There is mild to moderate aortic stenosis. There is mild aortic regurgitation. Tricuspid Valve: The tricuspid valve is normal in structure and function. There is mild tricuspid regurgitation. The right ventricular systolic pressure is estimated to be at least 24 mmHg based on an estimated right atrial pressure of 3 mm Hg. Pulmonic Valve: The pulmonic valve leaflets are thin and pliable; valve motion is normal. There is trace pulmonic regurgitation. Great Vessels: The aortic root is normal size. The dimensions of the ascending aorta are normal. The inferior vena cava was not well visualized. Pericardium/ Pleura There is no pericardial effusion. There is no pleural effusion. MMode/2D Measurements & Calculations LVIDd: 4.8 cm LVOT diam: 2.2 cm LVIDs: 3.2 cm Ao root diam: 3.6 cm FS: 33.2 % asc Aorta Diam: 3.3 cm IVSd: 1.1 cm Ao Arch Diam (Prox Trans): 3.2 cm LVPWd: 1.1 cm LV noguera. diameter/BSA (cm/m^2): 2.4 LV sys. diameter/BSA (cm/m^2): 1.6 LA A2 area: 27.2 cm2 RA long axis: 6.4 cm LA A4 area: 29.9 cm2 RA area: 17.3 cm2 LA length (vol): 6.6 cm RA vol: 39.5 ml LA vol: 105.3 ml RA : 19.6 ml/m2 LA vol index: 52.2 ml/m2 RVD1 (basal): 3.8 cm TAPSE: 1.3 cm Doppler Measurements & Calculations Ao V2 max: 208.5 cm/sec LVOT Max Giancarlo: 67.9 cm/sec Ao V2 mean: 151.5 cm/sec LV V1 max P.8 mmHg Ao max P.9 mmHg LV V1 VTI: 16.3 cm Ao mean P.0 mmHg TAYLOR(I,D): 1.3 cm2 Ao V2 VTI: 47.6 cm TAYLOR(V,D): 1.2 cm2 sev ratio: 0.34 TAYLOR indexed to BSA (cm^2/m^2): 0.64 AI P1/2t: 399.6 msec AI dec slope: 278.5 cm/sec2 MV E max giancarlo: 101.7 cm/sec TR max giancarlo: 229.9 cm/sec MV A max giancarlo: 74.2 cm/sec TR max P.1 mmHg MV E/A: 1.4 PA V2 max: 81.8 cm/sec Med Peak E' Giancarlo: 4.2 cm/sec PA V2 mean: 61.4 cm/sec E/E' med: 24.1 PA mean P.6 mmHg Lat Peak E' Giancarlo: 10.4 cm/sec PA pr(Accel): 46.5 mmHg E/E' lat: 9.7 E/e' average: 16.9 MV dec time: 0.20 sec MVA(VTI): 1.8 cm2 MV V2 mean: 80.3 cm/sec SV(LVOT): 61.0 ml MV mean P.8 mmHg MV V2 VTI: 33.0 cm Reading Physician:05:26 PM
[2023-12-11] MEDS: ACETAMINOPHEN 325 MG TABLET 650 MG PO (09:46)
[2023-12-11] MEDS: HEPARIN 5,000 UNIT/ML VIAL 5000 UNIT SUBCUT ×2 (09:46→20:45)
[2023-12-11] MEDS: TAMSULOSIN 0.4 MG CAPSULE PO (09:47)
[2023-12-11] MEDS: predniSONE 5 MG TABLET PO (09:47)
[2023-12-11] MEDS: carvediloL 3.125 MG TABLET PO ×2 (09:47→20:48)
[2023-12-11] MEDS: TACROLIMUS 0.5 MG CAPSULE 1 MG PO (09:47)
[2023-12-11 10:43] LABS: Tacrolimus 5.8
--- NOTE | 2023-12-11 12:28 | OT.IP.EVAL ---
Past Medical History (Last Reviewed 12/10/23 @ 14:01 by Alejandrina Garcia DO) Anemia Chronic low back pain CKD (chronic kidney disease) stage 3, GFR 30-59 ml/min Coronary artery disease Diabetes Encounter for subsequent annual wellness visit (AWV) in Medicare patient Hearing impaired Hyperlipidemia Hypertension Hypothyroid IPF (idiopathic pulmonary fibrosis) Macrocytosis Tubular adenoma of colon Surgical History (Last Reviewed 12/10/23 @ 14:01 by Alejandrina Garcia DO) H/O lung transplant (2009) Hx of bilateral cataract extraction Hx of cholecystectomy Status post lung transplantation Occupational Therapy Inpatient Evaluation/Re-Eval M1 PT/OT-IP Prior Functional Status Start: 12/11/23 12:31 Freq: NEEDED Status: Active Protocol: Document 12/11/23 11:47 [facility] (Rec: 12/11/23 12:43 [facility] [id number]) Medical Review Prior Functional Status Communication Independent Mobility and Gait Pt states since falling needing use of FWW to wwalk with otherwise normally uses a cane to walk with. Activities of Daily Living and IADL's Pt states wears slip on shoes and there for safety for showers and assist pt as needed. Pt's does the bills and her uses a pill organizer for meds. Social History Household Members spouse Living Arrangements House Number of Floors (Floors) One Floor Number of Stairs To Enter/Railing? 2 steps with right rail to enter. Home Environment High Toilet,Walk in Shower Home Equipment Front Wheel Walker,Four Wheel Walker,Straight Cane,Shower Seat with Backrest,Hand Held Shower,Assistant General Manager Additional Social History Comment Pt has a toilet safety frame. M2 OT-IP Current Condition Start: 12/11/23 12:31 Freq: Status: Active Protocol: Document 12/11/23 11:47 [facility] (Rec: 12/11/23 12:43 [facility] [id number]) Occupational Therapy Current Condition Current Condition Evaluation Date 12/11/23 Treatment Diagnosis Generalized weakness Diagnosis Onset Date 12/10/23 M3 OT- IP Subjective and Pain Start: 12/11/23 12:31 Freq: Status: Active Protocol: Document 12/11/23 11:47 [facility] (Rec: 12/11/23 12:43 [facility] [id number]) OT- Subjective Occupational Therapy Visit Type Type Initial Evaluation Visit Start Time 11:47 Visit Stop Time 12:28 Occupational Therapy Visit Comments Patient Comments Pt agreed to get up to use the bathroom. Patient/Caregiver Goals TO go home. OT Pain Assessment Pain When Pain Assessed During Mobility Pain Present Pain Present Pain Reported Location generalized discomfort Intensity 5 Scale Used Numeric (0 - 10) M4 OT- IP ADL's Start: 12/11/23 12:31 Freq: Status: Active Protocol: Document 12/11/23 11:47 [facility] (Rec: 12/11/23 12:43 [facility] [id number]) OT [id number] Comments OT Self-Feeding Comments Not at meal time. OT ADL-Grooming General Evaluation Grooming Ability Standby Assistance Areas Needing Assistance Retrieving/Set-up of Grooming Items Comments OT Grooming Comments Able to do while standing with the FWW at the sink. OT ADL-Oral Care General Eval Oral Care Ability Standby Assistance Areas of Assistance Retrieving/Set-Up of Items Comments Oral Care Comments set-up. OT ADL-Dressing General Eval Lower Body Dressing Ability Maximum Assistance Areas Needing Assistance Socks Comments OT Dressing Comments Pt states has slip on shoes at home. Pt needing assist for socks and assist for balance while pt pulling up brief over his hips. OT ADL-Toileting General Evaluation Toileting Ability Contact Guard Assistance Areas Needing Assistance Manage Clothing OT ADL-Bathing Comments OT Bathing Comments Pt will benefit from assist at this time. M5 OT- IP IADL's Start: 12/11/23 12:31 Freq: Status: Active Protocol: Document 12/11/23 11:47 [facility] (Rec: 12/11/23 12:43 [facility] [id number]) OT-Instrumental Activities of Daily Living Deficits IADL Deficits Identified Deficits Home Safety Awareness Awareness of Need for Assistance at Home Good Awareness Home Safety Comments Pt aware that he will need assist at this time. Medication Management Medication Management Comments Use of pill organizer. Money Management Money Management Caregiver Provides Assistance Meal Preparation Meal Preparation Caregiver Provides Assist Electrical Design Technician Electrical Design Technician Caregiver Provides Assist Electrical Design Technician Comments Pt states no longer has his ingredient mixer as she is not medically able to assist them anymore and wanting information of hiring services , able to let case management know. Driving Driving Concerns Identified Regarding Safety M6 OT- IP Functional Cognition Start: 12/11/23 12:31 Freq: Status: Active Protocol: Document 12/11/23 11:47 [facility] (Rec: 12/11/23 12:43 [facility] [id number]) Cognitive Factors Limiting Selfcare Function Cognitive Ability Level of Alertness Alert Patient Orientation Name,Age,Birthday,Place, Situation Attention Span Ability Capable of Focused Attention, Capable of Sustained Attention Ability to Follow Commands Able to Follow One Step Commands Cognitive Comments Cognitive Assessment Comments Pt able to follow commands for needs. Pt open to having home health at this time. Pt appears at baseline for needs but to try [facility] tomorrow. OT- Vision and Hearing OT- Hearing Assessment OT- Hearing Assessment Hearing Impaired OT- Vision Assessment Visual Acuity Glasses All The Time Visual Attentiveness WFL Occular Pursuits WFL Vision Assessment Comments Pt does not use the hearing aids that he has. M7 OT- IP Mobility and Balance Start: 12/11/23 12:31 Freq: Status: Active Protocol: Document 12/11/23 11:47 [facility] (Rec: 12/11/23 12:43 [facility] [id number]) OT- Bed Mobility Assessment Supine to Sit Supine to Sit Assist Contact Guard Assistance OT-Transfer Assessment Sit to and From Stand Sit to and from Stand Contact Guard Assistance Transfers Transfer Ability Contact Guard Assistance Technique Transfer Destination Bed,Chair,Toilet Transfer Technique Stand Step Pivot Devices Transfer Assistive Devices Gait Belt,Front Wheeled Walker Comments Mobility Comments CGA to help get from sidelying to sitting upright and needing increased time.. CGA to stand and CGA with FWW as pt moves slower and slightly unsteady at times. OT- Balance Assessment Sitting Balance and Reactions Static Sitting Balance Ability Good Dynamic Sitting Balance Ability Fair Standing Balance and Reactions Static Standing Balance Ability Fair Dynamic Standing Balance Ability Fair M8 OT- IP Objective Assessments Start: 12/11/23 12:31 Freq: Status: Active Protocol: Document 12/11/23 11:47 [facility] (Rec: 12/11/23 12:43 [facility] [id number]) OT Gross Range of Motion Upper Extremity Range of Motion Assessment Within Functional Limits OT Strength Comments Strength Comments WFL for needs at least 4/5 throughout. OT- Coordination Assessment Upper Extremity Finger to Nose Test Left UE Impaired Finger Tapping Test Left UE Impaired Comments Coordination Comments Slightly off with LUE. M9 OT- IP Assessment and Plan Start: 12/11/23 12:31 Freq: Status: Active Protocol: Document 12/11/23 11:47 [facility] (Rec: 12/11/23 12:43 [facility] [id number]) OT Summary Assessment and Plan Potential Rehabilitation Potential Good Analytic Complexity at Evaluation Moderate Summary OT Impairments Pain,Strength,Balance, Functional Mobility,Dressing, Toileting,Bathing,Toilet Transfers,Shower Transfers, Activity Tolerance Progress Towards Goals Slow Progress due to Medical Issues,Slow Progress due to Activity Tolerance Assessment Summary Pt mod complexity and main Goals Self-Feeding Goal Independent Grooming Goal Independent Dressing Goal Independent Toileting Goal Independent Bathing Goal Standby Assistance Toilet Transfer Goal Independent Shower Transfer Goal Standby Assistance Days to Meet Goals 7 Frequency of Treatment Frequency Of Treatment Once a Day Treatment Plan OT Treatment Plan ADL Training,Functional Mobility,Patient/Family Education,Discharge Planning Discharge Recommendations OT Discharge Recommendations Home with 26/03 Assist Available,Home Health Transportation Needs at Discharge Private Vehicle
--- NOTE | 2023-12-11 12:28 | OT.IP.EVAL ---
Past Medical History (Last Reviewed 12/10/23 @ 14:01 by Alejandrina Garcia DO) Anemia Chronic low back pain CKD (chronic kidney disease) stage 3, GFR 30-59 ml/min Coronary artery disease Diabetes Encounter for subsequent annual wellness visit (AWV) in Medicare patient Hearing impaired Hyperlipidemia Hypertension Hypothyroid IPF (idiopathic pulmonary fibrosis) Macrocytosis Tubular adenoma of colon Surgical History (Last Reviewed 12/10/23 @ 14:01 by Alejandrina Garcia DO) H/O lung transplant (2009) Hx of bilateral cataract extraction Hx of cholecystectomy Status post lung transplantation Occupational Therapy Inpatient Evaluation/Re-Eval M1 PT/OT-IP Prior Functional Status Start: 12/11/23 12:31 Freq: NEEDED Status: Active Protocol: Document 12/11/23 11:47 [facility] (Rec: 12/11/23 12:43 [facility] [id number]) Medical Review Prior Functional Status Communication Independent Mobility and Gait Pt states since falling needing use of FWW to wwalk with otherwise normally uses a cane to walk with. Activities of Daily Living and IADL's Pt states wears slip on shoes and there for safety for showers and assist pt as needed. Pt's does the bills and her uses a pill organizer for meds. Social History Household Members spouse Living Arrangements House Number of Floors (Floors) One Floor Number of Stairs To Enter/Railing? 2 steps with right rail to enter. Home Environment High Toilet,Walk in Shower Home Equipment Front Wheel Walker,Four Wheel Walker,Straight Cane,Shower Seat with Backrest,Hand Held Shower,Electric Motor Tester Additional Social History Comment Pt has a toilet safety frame. M2 OT-IP Current Condition Start: 12/11/23 12:31 Freq: Status: Active Protocol: Document 12/11/23 11:47 [facility] (Rec: 12/11/23 12:43 [facility] [id number]) Occupational Therapy Current Condition Current Condition Evaluation Date 12/11/23 Treatment Diagnosis Generalized weakness Diagnosis Onset Date 12/10/23 M3 OT- IP Subjective and Pain Start: 12/11/23 12:31 Freq: Status: Active Protocol: Document 12/11/23 11:47 [facility] (Rec: 12/11/23 12:43 [facility] [id number]) OT- Subjective Occupational Therapy Visit Type Type Initial Evaluation Visit Start Time 11:47 Visit Stop Time 12:28 Occupational Therapy Visit Comments Patient Comments Pt agreed to get up to use the bathroom. Patient/Caregiver Goals TO go home. OT Pain Assessment Pain When Pain Assessed During Mobility Pain Present Pain Present Pain Reported Location generalized discomfort Intensity 5 Scale Used Numeric (0 - 10) M4 OT- IP ADL's Start: 12/11/23 12:31 Freq: Status: Active Protocol: Document 12/11/23 11:47 [facility] (Rec: 12/11/23 12:43 [facility] [id number]) OT [id number] Comments OT Self-Feeding Comments Not at meal time. OT ADL-Grooming General Evaluation Grooming Ability Standby Assistance Areas Needing Assistance Retrieving/Set-up of Grooming Items Comments OT Grooming Comments Able to do while standing with the FWW at the sink. OT ADL-Oral Care General Eval Oral Care Ability Standby Assistance Areas of Assistance Retrieving/Set-Up of Items Comments Oral Care Comments set-up. OT ADL-Dressing General Eval Lower Body Dressing Ability Maximum Assistance Areas Needing Assistance Socks Comments OT Dressing Comments Pt states has slip on shoes at home. Pt needing assist for socks and assist for balance while pt pulling up brief over his hips. OT ADL-Toileting General Evaluation Toileting Ability Contact Guard Assistance Areas Needing Assistance Manage Clothing OT ADL-Bathing Comments OT Bathing Comments Pt will benefit from assist at this time. M5 OT- IP IADL's Start: 12/11/23 12:31 Freq: Status: Active Protocol: Document 12/11/23 11:47 [facility] (Rec: 12/11/23 12:43 [facility] [id number]) OT-Instrumental Activities of Daily Living Deficits IADL Deficits Identified Deficits Home Safety Awareness Awareness of Need for Assistance at Home Good Awareness Home Safety Comments Pt aware that he will need assist at this time. Medication Management Medication Management Comments Use of pill organizer. Money Management Money Management Caregiver Provides Assistance Meal Preparation Meal Preparation Caregiver Provides Assist Contract Coordinator Contract Coordinator Caregiver Provides Assist Contract Coordinator Comments Pt states no longer has his senior director marketing as she is not medically able to assist them anymore and wanting information of hiring services , able to let case management know. Driving Driving Concerns Identified Regarding Safety M6 OT- IP Functional Cognition Start: 12/11/23 12:31 Freq: Status: Active Protocol: Document 12/11/23 11:47 [facility] (Rec: 12/11/23 12:43 [facility] [id number]) Cognitive Factors Limiting Selfcare Function Cognitive Ability Level of Alertness Alert Patient Orientation Name,Age,Birthday,Place, Situation Attention Span Ability Capable of Focused Attention, Capable of Sustained Attention Ability to Follow Commands Able to Follow One Step Commands Cognitive Comments Cognitive Assessment Comments Pt able to follow commands for needs. Pt open to having home health at this time. Pt appears at baseline for needs but to try [facility] tomorrow. OT- Vision and Hearing OT- Hearing Assessment OT- Hearing Assessment Hearing Impaired OT- Vision Assessment Visual Acuity Glasses All The Time Visual Attentiveness WFL Occular Pursuits WFL Vision Assessment Comments Pt does not use the hearing aids that he has. M7 OT- IP Mobility and Balance Start: 12/11/23 12:31 Freq: Status: Active Protocol: Document 12/11/23 11:47 [facility] (Rec: 12/11/23 12:43 [facility] [id number]) OT- Bed Mobility Assessment Supine to Sit Supine to Sit Assist Contact Guard Assistance OT-Transfer Assessment Sit to and From Stand Sit to and from Stand Contact Guard Assistance Transfers Transfer Ability Contact Guard Assistance Technique Transfer Destination Bed,Chair,Toilet Transfer Technique Stand Step Pivot Devices Transfer Assistive Devices Gait Belt,Front Wheeled Walker Comments Mobility Comments CGA to help get from sidelying to sitting upright and needing increased time.. CGA to stand and CGA with FWW as pt moves slower and slightly unsteady at times. OT- Balance Assessment Sitting Balance and Reactions Static Sitting Balance Ability Good Dynamic Sitting Balance Ability Fair Standing Balance and Reactions Static Standing Balance Ability Fair Dynamic Standing Balance Ability Fair M8 OT- IP Objective Assessments Start: 12/11/23 12:31 Freq: Status: Active Protocol: Document 12/11/23 11:47 [facility] (Rec: 12/11/23 12:43 [facility] [id number]) OT Gross Range of Motion Upper Extremity Range of Motion Assessment Within Functional Limits OT Strength Comments Strength Comments WFL for needs at least 4/5 throughout. OT- Coordination Assessment Upper Extremity Finger to Nose Test Left UE Impaired Finger Tapping Test Left UE Impaired Comments Coordination Comments Slightly off with LUE. M9 OT- IP Assessment and Plan Start: 12/11/23 12:31 Freq: Status: Active Protocol: Document 12/11/23 11:47 [facility] (Rec: 12/11/23 12:43 [facility] [id number]) OT Summary Assessment and Plan Potential Rehabilitation Potential Good Analytic Complexity at Evaluation Moderate Summary OT Impairments Pain,Strength,Balance, Functional Mobility,Dressing, Toileting,Bathing,Toilet Transfers,Shower Transfers, Activity Tolerance Progress Towards Goals Slow Progress due to Medical Issues,Slow Progress due to Activity Tolerance Assessment Summary Pt mod complexity and main barrier is decreased activity tolerance, dynamic balance, and will need assist for ADl and mobility needs. Pt will benefit from home health and 24/7 available assist as needed. Goals Self-Feeding Goal Independent Grooming Goal Independent Dressing Goal Independent Toileting Goal Independent Bathing Goal Standby Assistance Toilet Transfer Goal Independent Shower Transfer Goal Standby Assistance Days to Meet Goals 7 Frequency of Treatment Frequency Of Treatment Once a Day Treatment Plan OT Treatment Plan ADL Training,Functional Mobility,Patient/Family Education,Discharge Planning Discharge Recommendations OT Discharge Recommendations Home with 24/7 Assist Available,Home Health Transportation Needs at Discharge Private Vehicle
[2023-12-11] MEDS: LEVOTHYROXINE 75 MCG TABLET 150 MCG PO (13:54)
--- NOTE | 2023-12-11 14:15 | PT.IIE ---
Surgical History (Last Reviewed 12/10/23 @ 14:01 by Alejandrina Garcia DO) H/O lung transplant (2009) Hx of bilateral cataract extraction Hx of cholecystectomy Status post lung transplantation Medical History (Last Reviewed 12/10/23 @ 14:01 by Alejandrina Garcia DO) Anemia Chronic low back pain CKD (chronic kidney disease) stage 3, GFR 30-59 ml/min Coronary artery disease Diabetes Encounter for subsequent annual wellness visit (AWV) in Medicare patient Hearing impaired Hyperlipidemia Hypertension Hypothyroid IPF (idiopathic pulmonary fibrosis) Macrocytosis Tubular adenoma of colon Physical Therapy Inpatient Evaluation/Re-Eval M1 PT/OT-IP Prior Functional Status Start: 12/11/23 16:54 Freq: NEEDED Status: Active Protocol: Document 12/11/23 14:15 [facility] (Rec: 12/11/23 17:06 [facility] [id number]) Medical Review Prior Functional Status Medical History Reviewed Yes Communication able to make needs known Mobility and Gait family in room and provided pt 's PLOF and home set up: stated that pt was modified independent with SPC but started using a FWW for the last 20 days due to weakness Activities of Daily Living and IADL's per OT note: Pt states wears slip on shoes and there for safety for showers and assist pt as needed. Pt's does the bills and her uses a pill organizer for meds. Social History Household Members spouse Living Arrangements House Number of Floors (Floors) One Floor Number of Stairs To Enter/Railing? 2 steps R rail to enter Home Environment High Toilet,Walk in Shower Home Equipment Front Wheel Walker,Straight Cane,Shower Seat with Backrest ,Hand Held Shower Additional Social History Comment pt has a toilet safety frame M2 PT-IP Current Condition Start: 12/11/23 16:54 Freq: NEEDED Status: Active Protocol: Document 12/11/23 14:15 [facility] (Rec: 12/11/23 17:06 [facility] [id number]) Physical Therapy Current Condition Current Condition Evaluation Date 12/11/23 Treatment Diagnosis weakness; diverticulitis; difficulty in walking Onset Date 12/10/23 M3 PT-IP Subjective Start: 12/11/23 16:54 Freq: NEEDED Status: Active Protocol: Document 12/11/23 14:15 [facility] (Rec: 12/11/23 17:06 [facility] [id number]) Subjective Physical Therapy Visit Type Type Initial Evaluation Visit Start Time 14:15 Visit Stop Time 15:00 Number of SALES FACILITATOR Visits 0 Physical Therapy Visit Comments Patient Comments agreeable to do PT Therapy Pain Assessment Pain Present Pain Present Denied Pain M4 PT-IP Mobility and Gait Start: 12/11/23 16:54 Freq: NEEDED Status: Active Protocol: Document 12/11/23 14:15 [facility] (Rec: 12/11/23 17:06 [id number]) PT-Bed Mobility Assessment Supine to Sit Supine to Sit Standby Assistance PT-Transfer Assessment Sit to and From Stand Sit to and from Stand Contact Guard Assistance,1 Person Assistance,Use of Upper Extremities Equipment Transfer Assistive Device Gait Belt,Front Wheeled Walker Orthotic/Prosthetic Devices or Brace: No Transfers Transfer Destination Chair Transfer Technique ambulated Transfer Ability Level of Assist Contact Guard Assistance,1 Person Assistance,Use of Upper Extremities Comments Mobility Comments pt supine in bed. pt's spouse and son in rom with pt. pt's son lives in [place] and will not be available to assist pt. obtained PLOF and home set up from pt and family. BP in supine: 96/43. pt completed supine to sit SBA. able to sit on EOB CGA with increase retrolean with initial sitting up and cued to correct and was able to sit on EOB SBA after repositioning. BP in sittin/59. pt without c /o dizziness/lightheadedness. pt completed sit to stand CGA and ambulated in room using FWW ~ 30 ft CGA. pt presents with increase unsteadiness midway with ambulation with c/ o L knee pain and feeling it will give out. pt agreed to sit on the chair. positioned pt on the chair. call light and table placed within reach. Gait Assessment Gait Gait Assistance Required: Contact Guard Assist Distance (Feet) 30 Able to Maintain Weight Bearing Status Yes During Gait Assistive Devices Assistive Device Gait Belt,Front Wheeled Walker Orthotic/Prosthetic Devices or Brace: No Gait Deviations General Gait Pattern Decreased Stride Length, Decreased Feet Clearance, Lateral Trunk Lean Factors Limiting Gait Function Factors Limiting Gait Function Decreased Activity Tolerance, Decreased Strength,Limited Range of Motion,Pain,Poor Balance,Poor Safety Awareness PT-Balance Assessment Sitting Balance and Reactions Static Sitting Balance Ability Good Dynamic Sitting Balance Ability Fair Standing Balance and Reactions Static Standing Balance Ability Fair Dynamic Standing Balance Ability Fair Device Used FWW M5 PT-IP Objective Assessments Start: 12/11/23 16:54 Freq: NEEDED Status: Active Protocol: Document 12/11/23 14:15 [facility] (Rec: 12/11/23 17:06 [facility] [id number]) Orientation Orientation/Cognition Level of Alertness Alert Orientation Name,Place,Situation Language Function Ability Hard of Hearing Safety Awareness Decreased Safety Awareness Memory Description Short Term Impaired Gross Range of Motion Lower Extremity ROM Assessment Within Functional Limits Strength Lower Extremity Strength Assessment Bilaterally Impaired Comments Strength Comments RLE: 4-/5 LLE: 3+/5 Muscle Tone Muscle Tone WNL Yes M6 PT-IP Treatment Start: 12/11/23 16:54 Freq: NEEDED Status: Active Protocol: Document 12/11/23 14:15 [facility] (Rec: 12/11/23 17:06 [facility] [id number]) Physical Therapy Treatment Education Education Provided Safety M7 PT-IP Assessment and Plan Start: 12/11/23 16:54 Freq: NEEDED Status: Active Protocol: Document 12/11/23 14:15 [facility] (Rec: 12/11/23 17:06 [facility] [id number]) PT Summary Assessment and Plan Potential Rehabilitation Potential Fair Status of Condition at Evaluation Evolving Summary Impairments Pain,ROM,Strength,Balance, Coordination,Sensation,Tone, Cognition,Bed Mobility, Transfers,Gait,Activity Tolerance Assessment Summary pt is an 83 y/o M who presented to the ED for weakness. pt admitted for diverticulitis and weakness. pt requiring CGA with transfers and ambulation using FWW. pt with unsteady gait and c/o increase L knee pain. Recommending use of FWW at this time. pt agreed. d/c plan depending on progress and if spouse will be able to assist pt. spouse expresses concerns due to her ability to assist pt. Pt may require SNF rehab at this time for improving overall strength and functional mobility independence. will continue to assess progress. Goals Bed Mobility Goal Independent Transfer Goal Independent,Front Wheeled Walker Gait Goal Independent,Front Wheel Walker Gait Distance 150 Other Goals up/down 2 steps R rail SBA Frequency of Treatment Frequency Of Treatment Once a Day Treatment Plan Physical Therapy Treatment Plan Bed Mobility Training,Transfer Training,Gait Training, Therapeutic Exercise,Balance Retraining,Discharge Planning, Hot or Cold Pack,Neuromuscular Re-ed,Coordination Retraining ,Manual Therapy Precautions Other Precautions falls Recommendations To Nursing Amount of Assist Needed 1 Person Assist Discharge Recommendations PT Discharge Recommendations Home with 26/03 Assist Available,Home Health,SNF Rehab,Home vs SNF Transportation Needs at Discharge Private Vehicle,Wheelchair/ Cabulance
--- NOTE | 2023-12-11 15:00 | CM.DANOTE ---
Patient is an 83 yo male admitted OBS Status on 12/10/23 for Weakness. Pt has MCR and AARP for insurance and his PCP is Dr. Shy Angel. EMR was reviewed. Per MD, pt with hx of CKD and DM and multiple ED visits in the past month for weakness and admitted for diverticulitis, encephalopathy, and abnormal thyroid labs and to have Echo. PT/OT ordered. Per OT, pt was mostly SBA with FWW but did fatigue easily and likely could d/c home with HH and assist. SW met bedside with pt, spouse Dieter and adult son/DPCAROLA Veliz and explained role and they confirm that pt and spouse live at home in [place] and both have been fairly independent with ADLs and pt has been driving and ambulating with a cane at baseline up until about 3 weeks ago when he started becoming more weak and fatigued. Son states he lives in [place] and therefore a bit more difficult for home to assist easily but son has some concerns with pt discharging home at this time and feels SNF needed. SW had lengthy discussion regarding pt's current OBS Status and that currently SNF would be private pay and the average daily cost. SW discussed HH services and frequency and provided them with the PP CG list and the Senior Resource Guidebook with PP CG agencies and local facilities. SW also discussed Respite Stay at [facility] as an option as well. SW discussed the challenges and requirements to meet Medicare criteria for Inpt Status. Son acknowledged understanding and pt as well but pt did drift in and out of sleep during discussion. Spouse appears to have some memory issues at baseline and forgetful. PT arrived and family eager to see how pt mobilizes as they had not been bedside for OT eval and recommendations. RAUL Rose kindly made [facility] referral based on Vendor Calendar as family had no HH preference after reviewing HH Choice list knowing pt likely will need to discharge home or pay privately for a facility. F2F completed but not faxed. SW called [facility] and requested review in case family decides on PP SNF if pt remains OBS Status and pt has hx at [facility] in 2021 and pt and family felt pt was well cared for there. Plan: SW to follow closely for PT eval and recommendations and ongoing discussion with pt and family regarding d/c home with [facility] referral and provided with PP CG list vs Privately paying for SNF. Madhavi Leigh, WELT BEATER Discharge Planning/Care Management Advanced directive, confirm from FAMILY Start: 12/10/23 17:21 Freq: Q24H Status: Active Protocol: Document 12/11/23 07:59 BT (Rec: 12/11/23 08:01 BT [id number]) Advance Directive, confirm on record Time 07:59 Person contacted Pt Copy received No CM Discharge Assessment Start: 12/11/23 14:40 Freq: Status: Active Protocol: Document 12/11/23 14:40 BF (Rec: 12/11/23 15:00 BF [id number]) Discharge Planning Assessment Assigned [employer] Technical Architect DENIZ Hendrickson DPOA/Assigned Designee Name son Jose Alfredo Jacobs Contact Information [phone] Advance Directives? Yes Advance Directives on File No History Provided By Patient,Significant Other, Medical Record Has Patient been admitted in last 30 No days? Comment multiple ED visits past month Prior Living Arrangements House Household Members spouse Type of transporation used prior to Drives own vehicle admit Independent with ADL's Yes Is patient alert and oriented? Yes Needs Assistance With Home Chores / Shopping Caregiver for Another No: spouse seems to have some memory issues DME Already Rented / Owned Bath Bench,FWW / Walker,Cane Patient/Family Preference Home with Home Health Barriers to Discharge Yes Comment OBS status, son is concerned with pt discharge home Discharge Plan Home with Home Health Community Services Physical Therapy,Occupational Therapy,Home Health Aid,Home Health Nurse Transportation Arrangement spouse or adult son can transport at d/c Referrals Initiated Home Health If patient plan is home with home health Yes : Has signed face to face form been completed? Medicare Choice List Provided Yes Medicare choice list reviewed on patient,family electronic tablet with SNF/HH Preference No HH preference Whiteboard Updated in Patient Room with Yes name and ext. # of S[employer] Technical Architect Review Status In Process Please Provide Date Initial DC 12/11/23 Assessment Was Performed Next Review Type Continued Stay Review
[2023-12-11] MEDS: INSULIN LISPRO 100 UNIT/ML 3ML VIAL SUBCUT (17:36)
--- NOTE | 2023-12-11 17:48 | PM.PN.1 ---
Subjective Subjective Interval history: Patient feeling better today and has more energy. PT/OT rec HH. Family at bedside and questions were answered. Echo shows EF 50-55% with new wall motion abnormalities. Exam Vital Signs (past 8 hours): - 12/11/23 12:00 12/11/23 16:00 Temperature 97.9 F 97.8 F Pulse Rate 72 76 Respiratory Rate 16 16 Blood Pressure 116/73 140/75 Pulse Oximetry 98 99 Oxygen Flow Rate 0 0 Oxygen Delivery Method Room Air Oxygen Flow Rate 0 Narrative Exam Narrative: Gen: NAD, AOx3 Neck: trachea midline, no JVD CV: RRR, no murmurs PULM: normal respiratory effort. No wheezes or rhonchi ABD: soft, non-distended, tenderness at LLQ. EXT: warm and well perfused with 1+ pitting edema b/l in the LE. Strength ? b/l in the UE and LE. Mild tremor b/l on his UE. Objective Labs 12/11/23 04:54 12/11/23 04:54 Labs: Laboratory Results - last 24 hr 12/10/23 12/11/23 12:40 04:54 WBC 7.5 RBC 2.74 L Hgb 9.4 L Hct 27.6 L MCV 100.8 H MCH 34.3 H MCHC 34.1 RDW 14.8 Plt Count 149 L Neut % (Auto) 45.1 L Lymph % (Auto) 37.4 [place] % (Auto) 13.7 Eos % (Auto) 2.8 Baso % (Auto) 1.0 Neut # (Auto) 3400 Lymph # (Auto) 2800 [place] # (Auto) 1000 H Eos # (Auto) 200 Baso # (Auto) 100 Sodium 137 Potassium 3.9 Chloride 111 H Carbon Dioxide 21 L BUN 34 H Creatinine 2.12 H Estimated GFR 30 L BUN/Creatinine Ratio 16.0 Glucose 111 H Hemoglobin A1c 6.8 H Calcium 9.4 Magnesium 2.1 TSH 41.20 H Tacrolimus 5.8 PFSH Medical History Encounter for subsequent annual wellness visit (AWV) in Medicare patient Macrocytosis CKD (chronic kidney disease) stage 3, GFR 30-59 ml/min Chronic low back pain Hearing impaired IPF (idiopathic pulmonary fibrosis) Hypothyroid Diabetes Hyperlipidemia Hypertension Coronary artery disease Anemia Tubular adenoma of colon Surgical History Status post lung transplantation Hx of cholecystectomy Hx of bilateral cataract extraction H/O lung transplant (2009) Family History Father Patient denies significant medical history Mother Patient denies significant medical history Social History marital status: household members: spouse Smoking Status: Former smoker alcohol intake: former Assessment & Plan Assessment & Plan narrative: # generalized weakness possibly 2/2 hypothyroidism -labs show anemia but this is chronic -PT and OT evaluation -likely due to low thyroid, as TSH is 41 -increase synthroid to 175mcg # new WMA on echo -echo EF 50-55%, hypokinesis of inferior and inferoseptal wall, mild-mod changed from only mild, both new when compared to prior echo in Oct 2022 -will get nuclear stress test # diverticulitis -seen on CT, patient with mild LLQ pain -continue zosyn # hypercalcemia, resolved -PTH pending -likely due to being dry -Ca now normalized # THERESA on CKD -IVF -monitor Code status is DNR. DVT prophylaxis with heparin subQ. Proxy is Dieter. I have reviewed home meds and used all available resources to reconcile the home meds. Dispo: Home with HH in 1-2 days. Quality VTE Deep Vein Thrombosis/Pulmonary Embolism Present on Admission: No
[2023-12-11] MEDS: TACROLIMUS 0.5 MG CAPSULE PO (20:47)
[2023-12-12] VITALS (8 sets, daily range): BP systolic 106–164; BP diastolic 62–84; PULSE 77–90; RESP 15–18; TEMP 36.3–36.5; O2SAT 92–98
[2023-12-12] MEDS: PIPERACILLIN/TAZO 3.375 GM in SODIUM CHLORIDE 0.9% 100 ML IV ×3 (01:25→18:22)
[2023-12-12] MEDS: LEVOTHYROXINE 100 MCG, LEVOTHYROXINE 75 MCG 175 MCG PO (05:05)
[2023-12-12] MEDS: PANTOPRAZOLE DR 20 MG TABLET PO (05:05)
[2023-12-12 05:12] LABS: Add Manual Diff / Slide Review NO; Basophils Absolute Auto 100 /uL (0-100); Basophils Percent Auto 1.1 % (0-2); Eosinophils Absolute Auto 200 /uL (0-450); Hematocrit 30.5 % (41-53); Hemoglobin 10.3 g/dL (13.5-17.5); Lymphocytes Absolute Auto 2500 /uL (1100-4500); Lymphocytes Percent Auto 33.1 % (25-40); Mean Corpuscular HGB Conc 33.9 % (30-36); Mean Corpuscular Hemoglobin 34.5 PG (26-34); Mean Corpuscular Volume 101.6 fL (80-100); Monocytes Absolute Auto 700 /uL (0-900); Monocytes Percent Auto 9.5 % (3-14); Neutrophils Absolute Auto 4100 /uL (1500-7000); Neutrophils Percent Auto 54.3 % (50-75); Platelet Count 168 X10^3/uL (150-400); Red Cell Distribution Width 14.7 % (11.6-14.8); White Blood Cell Count 7.6 X10^3/uL (4.5-11.0)
[2023-12-12 05:36] LABS: Troponin I 0.027 ng/mL (0.01-0.034)
[2023-12-12 05:43] LABS: BUN Creatinine Ratio 14.3 (6-22); Blood Urea Nitrogen 32 mg/dL (9-20); Calcium 9.5 mg/dL (8.4-10.2); Carbon Dioxide 21 mmol/L (22-32); Chloride 111 mmol/L (98-107); Estimated Glomerular Filt Rate 28 mL/min (>60); Glucose 128 mg/dL (80-110); HEMOLYSIS < 15 (0-50); Magnesium 2.1 mg/dL (1.6-2.3); Potassium 4.5 mmol/L (3.4-5.1); Sodium 138 mmol/L (137-145)
[2023-12-12] MEDS: carvediloL 3.125 MG TABLET PO ×2 (08:33→21:37)
[2023-12-12] MEDS: TAMSULOSIN 0.4 MG CAPSULE PO (08:34)
[2023-12-12] MEDS: predniSONE 5 MG TABLET PO (08:34)
[2023-12-12] MEDS: HEPARIN 5,000 UNIT/ML VIAL 5000 UNIT SUBCUT ×2 (08:34→21:33)
[2023-12-12] MEDS: TACROLIMUS 0.5 MG CAPSULE 1 MG PO (08:34)
--- NOTE | 2023-12-12 10:30 | DI.NM.S_ITS ---
PROCEDURE: NM FAMILIA PERF SPECT R&S PHARM Rest and pharmacological stress myocardial perfusion SPECT with gated imaging and ejection fraction RADIOPHARMACEUTICAL: 9.0 mCi Tc-99m tetrafosmin IV at rest and 26.8 mCi Tc-99m tetrafosmin IV at peak effect of pharmacological stress. [id number] was performed. INDICATIONS: WMA on echo TECHNIQUE: Radiopharmaceutical was injected at peak stress test, and also at rest. SPECT images were obtained. SPECT myocardial perfusion images were displayed in short axis, horizontal long axis, and vertical long axis views. Gated images were reviewed using [employer] software. COMPARISON: None. CARDIAC STRESS: A pharmacologic stress test was performed under the supervision of an attending staff, using an infusion of lexiscan 0.4mg IV X1. Hemodynamic data: There is normal blood pressure and heart rate response to pharmacologic stress. Symptoms: The patient denied anginal chest pain. Aminophylline: none EKG: No diagnostic changes of ischemia; rare PACs. FINDINGS: Raw data: There is good myocardial uptake of radiotracer. No significant motion artifacts. Left ventricle function: Gated images demonstrate mild hypokinesis of the inferior wall and inferoseptum. No transient ischemic dilation; TID is 0.97 (normal less than 1.3). Left ventricle posts stress end diastolic volume is 104 mL. Left ventricle stress ejection fraction is 70%; normal range is above 45%. Myocardial perfusion: There is a mildly intense partially reversible apical defect that is probably apical thinning artifact but old small non-transmural infarction with modest ischemia can't be definitively excluded. SSS 1. SRS 0. No prone images done due to physical limitations. IMPRESSION: Low risk, probably normal pharm nuclear stress test 1) There is a mildly intense partially reversible apical defect that is probably apical thinning artifact but old small non-transmural infarction with modest ischemia can't be definitively excluded. SSS 1. SRS 0. No prone images done due to physical limitations. 2) Normal left ventricular and systolic function (EF post stress 70%). There is mild hypokinesis of the inferior wall and inferoseptum. 3) No ST changes during the study. 4) No angina during the study. 5) No prior nuclear stress test available for comparison. Dictated by: Yovanny John MD on 12/13/2023 at 13:13 Approved by: Yovanny John MD on 12/13/2023 at 13:17
--- NOTE | 2023-12-12 11:15 | PT.IPTN ---
Physical Therapy Treatment Note M2 PT-IP Current Condition Start: 12/11/23 16:54 Freq: NEEDED Status: Active Protocol: Document 12/11/23 14:15 AB (Rec: 12/11/23 17:06 AB [id number]) Physical Therapy Current Condition Current Condition Evaluation Date 12/11/23 Treatment Diagnosis weakness; diverticulitis; difficulty in walking Onset Date 12/10/23 M3 PT-IP Subjective Start: 12/11/23 16:54 Freq: NEEDED Status: Active Protocol: Document 12/12/23 11:41 TS (Rec: 12/12/23 11:49 TS [id number]) Subjective Physical Therapy Visit Type Type Treatment Note Visit Start Time 11:15 Visit Stop Time 11:40 Number of POLE CLASSIFIER Visits 1 Physical Therapy Visit Comments Patient Comments Pt found resting in chair, is agreeable to PT. M4 PT-IP Mobility and Gait Start: 12/11/23 16:54 Freq: NEEDED Status: Active Protocol: Document 12/12/23 11:41 TS (Rec: 12/12/23 11:49 TS [id number]) PT-Transfer Assessment Sit to and From Stand Sit to and from Stand Contact Guard Assistance,1 Person Assistance,Use of Upper Extremities Equipment Transfer Assistive Device Gait Belt,Front Wheeled Walker Orthotic/Prosthetic Devices or Brace: No Comments Mobility Comments STS from chair CGA with cues for pushing up from arms of chair. He ambulated ~80'CGA with FWW. He performed steps Cherise with B handrails. He has difficulty with steps and requires increased effort to complete. pt ambulated back to room. Performed standing march, mini squat, sitting march and seated knee flex/ext . Pt was left in chair with all needs met. Gait Assessment Gait Gait Assistance Required: Contact Guard Assist Distance (Feet) 80 Able to Maintain Weight Bearing Status Yes During Gait Assistive Devices Assistive Device Gait Belt,Front Wheeled Walker Orthotic/Prosthetic Devices or Brace: No Gait Deviations General Gait Pattern Decreased Stride Length, Decreased Feet Clearance, Lateral Trunk Lean Factors Limiting Gait Function Factors Limiting Gait Function Decreased Activity Tolerance, Decreased Strength,Limited Range of Motion,Pain,Poor Balance,Poor Safety Awareness Stair Climbing Assessment Evaluation Level of Assist On Stairs Minimal Assistance,1 Person Assistance Devices Stair Climbing Assistive Devices Left Railing,Right Railing Technique/Endurance Stair Climbing Direction Ascend and Descend Stair Climbing Technique Step to Step Number of Steps Climbed 3 Comments Stair Climbing Comments See mobility comments PT-Balance Assessment Sitting Balance and Reactions Static Sitting Balance Ability Good Dynamic Sitting Balance Ability Fair Standing Balance and Reactions Static Standing Balance Ability Fair Dynamic Standing Balance Ability Fair Device Used FWW M5 PT-IP Objective Assessments Start: 12/11/23 16:54 Freq: NEEDED Status: Active Protocol: Document 12/11/23 14:15 AB (Rec: 12/11/23 17:06 AB [id number]) Orientation Orientation/Cognition Level of Alertness Alert Orientation Name,Place,Situation Language Function Ability Hard of Hearing Safety Awareness Decreased Safety Awareness Memory Description Short Term Impaired Gross Range of Motion Lower Extremity ROM Assessment Within Functional Limits Strength Lower Extremity Strength Assessment Bilaterally Impaired Comments Strength Comments RLE: 4-/5 LLE: 3+/5 Muscle Tone Muscle Tone WNL Yes M6 PT-IP Treatment Start: 12/11/23 16:54 Freq: NEEDED Status: Active Protocol: Document 12/12/23 11:41 TS (Rec: 12/12/23 11:49 TS [id number]) Physical Therapy Treatment Education Education Provided Safety M7 PT-IP Assessment and Plan Start: 12/11/23 16:54 Freq: NEEDED Status: Active Protocol: Document 12/12/23 11:41 TS (Rec: 12/12/23 11:49 TS [id number]) PT Summary Assessment and Plan Potential Rehabilitation Potential Fair Summary Impairments Pain,ROM,Strength,Balance, Coordination,Sensation,Tone, Cognition,Bed Mobility, Transfers,Gait,Activity Tolerance Progress Towards Goals Progressing Toward Goals Assessment Summary Darryl is making some progress with his mobility. He is CGA for STS from chair and use of FWW. He progressed his gait to ~80' CGA with FWW, has some unsteadiness but no buckling or LOB. He had most difficulty with stairs and required increased effort to complete and use of both rails Cherise. PT is recommending Home vs SNF at this time. Pt would benefit from SNF to improve strength and activity tolerance before d/c home with spouse. Goals Bed Mobility Goal Independent Transfer Goal Independent,Front Wheeled Walker Gait Goal Independent,Front Wheel Walker Gait Distance 150 Other Goals up/down 2 steps R rail SBA Frequency of Treatment Frequency Of Treatment Once a Day Treatment Plan Physical Therapy Treatment Plan Bed Mobility Training,Transfer Training,Gait Training, Therapeutic Exercise,Balance Retraining,Discharge Planning, Hot or Cold Pack,Neuromuscular Re-ed,Coordination Retraining ,Manual Therapy Precautions Other Precautions falls Recommendations To Nursing Amount of Assist Needed 1 Person Assist Discharge Recommendations PT Discharge Recommendations Home with 26/03 Assist Available,Home Health,SNF Rehab,Home vs SNF Transportation Needs at Discharge Private Vehicle,Wheelchair/ Cabulance
[2023-12-12] MEDS: ACETAMINOPHEN 325 MG TABLET 650 MG PO ×2 (12:18→21:37)
[2023-12-12] MEDS: INSULIN LISPRO 100 UNIT/ML 3ML VIAL SUBCUT ×2 (12:18→17:46)
--- NOTE | 2023-12-12 13:36 | PM.PN.1 ---
Subjective Subjective Interval history: Spoke to patient about echo results showing new WMA. He is willing to stay for a nuclear stress test tomorrow. He is not interested in going to SNF, even though family is recommending this. He would prefer . Exam Vital Signs (past 8 hours): - 12/12/23 08:00 12/12/23 08:33 12/12/23 12:00 Temperature 97.7 F 97.4 F L Pulse Rate 79 78 77 Respiratory Rate 18 16 Blood Pressure 133/72 133/73 114/62 Pulse Oximetry 98 94 Oxygen Delivery Method Room Air Oxygen Flow Rate 0 Narrative Exam Narrative: Gen: NAD, AOx3 Neck: trachea midline, no JVD CV: RRR, no murmurs PULM: normal respiratory effort. No wheezes or rhonchi ABD: soft, non-distended, tenderness at LLQ. EXT: warm and well perfused with 1+ pitting edema b/l in the LE. Strength ? b/l in the UE and LE. Mild tremor b/l on his UE. Objective Labs 12/12/23 04:33 12/12/23 04:33 Labs: Laboratory Results - last 24 hr 12/12/23 04:33 WBC 7.6 RBC 3.00 L Hgb 10.3 L Hct 30.5 L MCV 101.6 H MCH 34.5 H MCHC 33.9 RDW 14.7 Plt Count 168 Neut % (Auto) 54.3 Lymph % (Auto) 33.1 Jefferson % (Auto) 9.5 Eos % (Auto) 2.0 Baso % (Auto) 1.1 Neut # (Auto) 4100 Lymph # (Auto) 2500 Jefferson # (Auto) 700 Eos # (Auto) 200 Baso # (Auto) 100 Sodium 138 Potassium 4.5 Chloride 111 H Carbon Dioxide 21 L BUN 32 H Creatinine 2.23 H Estimated GFR 28 L BUN/Creatinine Ratio 14.3 Glucose 128 H Calcium 9.5 Magnesium 2.1 Troponin I 0.027 PFSH Medical History Encounter for subsequent annual wellness visit (AWV) in Medicare patient Macrocytosis CKD (chronic kidney disease) stage 3, GFR 30-59 ml/min Chronic low back pain Hearing impaired IPF (idiopathic pulmonary fibrosis) Hypothyroid Diabetes Hyperlipidemia Hypertension Coronary artery disease Anemia Tubular adenoma of colon Surgical History Status post lung transplantation Hx of cholecystectomy Hx of bilateral cataract extraction H/O lung transplant (2009) Family History Father Patient denies significant medical history Mother Patient denies significant medical history Social History marital status: household members: spouse Smoking Status: Former smoker alcohol intake: former Assessment & Plan Assessment & Plan narrative: # generalized weakness possibly 2/2 hypothyroidism -labs show anemia but this is chronic -PT and OT evaluation -likely due to low thyroid, as TSH is 41 -increase synthroid to 175mcg # new WMA on echo -echo EF 50-55%, hypokinesis of inferior and inferoseptal wall, mild-mod changed from only mild, both new when compared to prior echo in Oct 2022 -will get nuclear stress test on 12/12 # diverticulitis -seen on CT, patient with mild LLQ pain -continue zosyn # hypercalcemia, resolved -PTH pending -likely due to being dry -Ca now normalized # THERESA on CKD -IVF -monitor Code status is DNR. DVT prophylaxis with heparin subQ. Proxy is Dieter. I have reviewed home meds and used all available resources to reconcile the home meds. Dispo: Home with HH in 1-2 days. Quality VTE Deep Vein Thrombosis/Pulmonary Embolism Present on Admission: No
--- NOTE | 2023-12-12 13:40 | CM.DPNOTE ---
Addendum entered by DENIZ Arias 12/13/23 15:59: ADD: Patient and spouse have decided on SNF. Discussed the need for private payment, provided Alesha's number at [facility] to discuss further. Alesha reports to this SCIENTIFIC PROGRAMMER ANALYST that beds are available tomorrow as long as spouse can provide payment, deposit of $13,816 required. Patient will be reimbursed any amount he does not use if there less than his month's deposit. Following closely for discharge coordination. Patient remains OBS status. Explained the difference between OBS vs INPT status many times for patient and spouse this afternoon in the room (UR RN gone for the day) PITER Tabor present for this conversation. JW Original Note: DCP Cont Alesha at [facility] able to admit patient under private payment tomorrow. Plan reviewed with patient and he is adamant about returning home, reports he has discussed with spouse and she agrees. Patient agreeable to ariane services. Call received from son Jose Alfredo. Provided support as son reports frustration with the situation; says his Dad has been falling at home a lot and he feels he could use additional care before returning home. Jose Alfredo states he understands patient is decisional and so is spouse Dieter. Son plans to help the best he can once patient returns home. ALEKSEY Rose, kindly agreed to send ariane completed and signed F2F and HH order. Discharge anticipated tomorrow after stress test. Updated Alesha at [facility]. Plan: Discharge home anticipated, w/spouse and ariane services. BERTHA
--- NOTE | 2023-12-12 13:45 | OT.IP.TRT ---
Occupational Therapy Treatment Note M2 OT-IP Current Condition Start: 12/11/23 12:31 Freq: Status: Active Protocol: Document 12/11/23 11:47 [facility] (Rec: 12/11/23 12:43 [facility] [id number]) Occupational Therapy Current Condition Current Condition Evaluation Date 12/11/23 Treatment Diagnosis Generalized weakness Diagnosis Onset Date 12/10/23 M3 OT- IP Subjective and Pain Start: 12/11/23 12:31 Freq: Status: Active Protocol: Document 12/12/23 13:49 [facility] (Rec: 12/12/23 14:13 [facility] [id number]) OT- Subjective Occupational Therapy Visit Type Type Treatment Note Visit Start Time 13:15 Visit Stop Time 13:45 Occupational Therapy Visit Comments Patient Comments Pt not wanting to get up at this time as IV going. Pt agreed to do cognitive assessment. Patient/Caregiver Goals To go home. OT Pain Assessment Pain When Pain Assessed At Rest Pain Present Pain Present Pain Reported M4 OT- IP ADL's Start: 12/11/23 12:31 Freq: Status: Active Protocol: Document 12/11/23 11:47 [facility] (Rec: 12/11/23 12:43 [facility] [id number]) M5 OT- IP IADL's Start: 12/11/23 12:31 Freq: Status: Active Protocol: Document 12/11/23 11:47 [facility] (Rec: 12/11/23 12:43 [facility] [id number]) OT-Instrumental Activities of Daily Living Deficits IADL Deficits Identified Deficits Home Safety Awareness Awareness of Need for Assistance at Home Good Awareness Home Safety Comments Pt aware that he will need assist at this time. Medication Management Medication Management Comments Use of pill organizer. Money Management Money Management Caregiver Provides Assistance Meal Preparation Meal Preparation Caregiver Provides Assist Java Scala Developer Java Scala Developer Caregiver Provides Assist Java Scala Developer Comments Pt states no longer has his utility sales and service manager as she is not medically able to assist them anymore and wanting information of hiring services , able to let case management know. Driving Driving Concerns Identified Regarding Safety M6 OT- IP Functional Cognition Start: 12/11/23 12:31 Freq: Status: Active Protocol: Document 12/12/23 13:49 [facility] (Rec: 12/12/23 14:13 [facility] [id number]) Cognitive Factors Limiting Selfcare Function Cognitive Ability Level of Alertness Alert Patient Orientation Name,Age,Year,Day of Week, Place,Situation Attention Span Ability Capable of Focused Attention, Capable of Sustained Attention Ability to Follow Commands Able to Follow One Step Commands with Increased Time Memory Description Short Term Impaired,Working Impaired Cognitive Tests SLUMS Pt scored 17/30 which implies dementia. basically just blacked out while driving. Pt not able to subtract 100-23, able to recall 5 animals in one minute, able to recall 2/5 objects after time passed, not able to recall 3-4 digits backwards, not able to draw the spacing correctly the numbers of the clock, and able to answer 3/4 questions right after paragraph read. Cognitive Comments Cognitive Assessment Comments Pt admits that he has difficulty with getting his words out and at times just blurs out. Pt states he blurred out while driving home . When asking the pt to clarify, pt states he blacked out and does not recall how he got home that day. When asking pt is he would drive at this time, pt states yes. Spoke at length to pt best to not drive at this time. M8 OT- IP Objective Assessments Start: 12/11/23 12:31 Freq: Status: Active Protocol: Document 12/12/23 13:49 [facility] (Rec: 12/12/23 14:13 [facility] [id number]) OT- Coordination Assessment Upper Extremity Finger to Nose Test Left UE Impaired Comments Coordination Comments Pt finger to nose way off with LUE today. M9 OT- IP Assessment and Plan Start: 12/11/23 12:31 Freq: Status: Active Protocol: Document 12/12/23 13:49 [facility] (Rec: 12/12/23 14:13 [facility] [id number]) OT Summary Assessment and Plan Potential Rehabilitation Potential Good Analytic Complexity at Evaluation Moderate Summary OT Impairments Pain,Strength,Balance, Functional Mobility,Dressing, Toileting,Bathing,Toilet Transfers,Shower Transfers, Activity Tolerance Progress Towards Goals Slow Progress due to Medical Issues,Slow Progress due to Activity Tolerance,Slow Progress due to Cognition Assessment Summary Pt MOD complexity and having difficulty with short term memory, problem solving and said spoke at length with his yesterday and now agreeable to go to skilled rehab. Goals Self-Feeding Goal Independent Grooming Goal Independent Dressing Goal Independent Toileting Goal Independent Bathing Goal Standby Assistance Toilet Transfer Goal Independent Shower Transfer Goal Standby Assistance Days to Meet Goals 10 Frequency of Treatment Frequency Of Treatment Once a Day Treatment Plan OT Treatment Plan ADL Training,Functional Mobility,Patient/Family Education,Discharge Planning Discharge Recommendations OT Discharge Recommendations SNF Rehab Transportation Needs at Discharge Wheelchair/Cabulance
[2023-12-12] MEDS: FAMOTIDINE 20 MG TABLET PO (15:46)
[2023-12-12] MEDS: AZITHROMYCIN 250 MG TABLET 500 MG PO (21:36)
[2023-12-12] MEDS: TACROLIMUS 0.5 MG CAPSULE PO (21:45)
[2023-12-12 22:24] LABS: Parathyroid Hormone, Intact 14 pg/mL (15-65)
[2023-12-13] MEDS: PIPERACILLIN/TAZO 3.375 GM in SODIUM CHLORIDE 0.9% 100 ML IV (02:16)
[2023-12-13 02:27] VITALS: BP 143/60; PULSE 90; RESP 22; TEMP 36.4; O2SAT 97
[2023-12-13 05:28] LABS: Add Manual Diff / Slide Review NO; Basophils Absolute Auto 100 /uL (0-100); Basophils Percent Auto 1.4 % (0-2); Eosinophils Absolute Auto 100 /uL (0-450); Eosinophils Percent Auto 1.9 % (2-4); Hematocrit 28.2 % (41-53); Hemoglobin 9.5 g/dL (13.5-17.5); Lymphocytes Absolute Auto 2200 /uL (1100-4500); Mean Corpuscular HGB Conc 33.8 % (30-36); Mean Corpuscular Hemoglobin 34.4 PG (26-34); Mean Corpuscular Volume 101.9 fL (80-100); Monocytes Absolute Auto 700 /uL (0-900); Monocytes Percent Auto 9.7 % (3-14); Neutrophils Absolute Auto 4200 /uL (1500-7000); Platelet Count 163 X10^3/uL (150-400); Red Blood Cell Count 2.77 X10^6/uL (4.5-5.9); Red Cell Distribution Width 14.8 % (11.6-14.8); White Blood Cell Count 7.4 X10^3/uL (4.5-11.0)
[2023-12-13 05:43] LABS: BUN Creatinine Ratio 14.9 (6-22); Blood Urea Nitrogen 37 mg/dL (9-20); Calcium 8.7 mg/dL (8.4-10.2); Carbon Dioxide 19 mmol/L (22-32); Chloride 112 mmol/L (98-107); Estimated Glomerular Filt Rate 25 mL/min (>60); Glucose 138 mg/dL (80-110); HEMOLYSIS < 15 (0-50); Potassium 3.9 mmol/L (3.4-5.1); Sodium 138 mmol/L (137-145)
[2023-12-13 05:47] LABS: Magnesium 2.1 mg/dL (1.6-2.3)
[2023-12-13 06:00] VITALS: BP 144/63; PULSE 78; RESP 18; TEMP 36.5; O2SAT 96
[2023-12-13] MEDS: PANTOPRAZOLE DR 20 MG TABLET PO (06:13)
[2023-12-13] MEDS: LEVOTHYROXINE 100 MCG, LEVOTHYROXINE 75 MCG 175 MCG PO (06:13)
[2023-12-13 07:36] VITALS: BP 145/80; PULSE 81; RESP 19; TEMP 36.3; O2SAT 95
--- NOTE | 2023-12-13 08:16 | PC.NURSE ---
Patient is sitting up in his chair, he went to the restroom this morning. He is waiting for his stress test and is npo.
--- NOTE | 2023-12-13 09:13 | PT-IP ANOTE ---
Attempted to see pt this morning, is currently preparing for a stress test. Will attempt to see later in afternoon.
[2023-12-13] MEDS: TACROLIMUS 0.5 MG CAPSULE 1 MG PO (09:25)
[2023-12-13] MEDS: predniSONE 5 MG TABLET PO (09:25)
[2023-12-13] MEDS: carvediloL 3.125 MG TABLET PO ×2 (09:25→21:16)
[2023-12-13] MEDS: TAMSULOSIN 0.4 MG CAPSULE PO (09:26)
[2023-12-13] MEDS: HEPARIN 5,000 UNIT/ML VIAL 5000 UNIT SUBCUT ×2 (09:27→21:13)
[2023-12-13] MEDS: AMOXICILLIN/CLAV 875/125 MG 1 TAB PO (09:29)
[2023-12-13] MEDS: SODIUM CHLORIDE 0.9% 500 ML 1000 ML IV (12:47)
[2023-12-13] MEDS: INSULIN LISPRO 100 UNIT/ML 3ML VIAL SUBCUT ×2 (12:48→17:01)
[2023-12-13 14:46] VITALS: BP 138/75; PULSE 79; RESP 19; TEMP 36.7; O2SAT 97
--- NOTE | 2023-12-13 15:45 | PT.IPTN ---
Physical Therapy Treatment Note M2 PT-IP Current Condition Start: 12/11/23 16:54 Freq: NEEDED Status: Active Protocol: Document 12/11/23 14:15 AB (Rec: 12/11/23 17:06 AB [id number]) Physical Therapy Current Condition Current Condition Evaluation Date 12/11/23 Treatment Diagnosis weakness; diverticulitis; difficulty in walking Onset Date 12/10/23 M3 PT-IP Subjective Start: 12/11/23 16:54 Freq: NEEDED Status: Active Protocol: Document 12/13/23 16:12 TS (Rec: 12/13/23 16:28 TS [id number]) Subjective Physical Therapy Visit Type Type Treatment Note Visit Start Time 15:45 Visit Stop Time 16:10 Number of SECONDARY SPECIAL EDUCATION TEACHER Visits 2 Physical Therapy Visit Comments Patient Comments Pt found in restroom, reports pain in B knees and has appointment for shots in January, he is agreeable to PT. pt discussing d/c plans with SW and spouse. M4 PT-IP Mobility and Gait Start: 12/11/23 16:54 Freq: NEEDED Status: Active Protocol: Document 12/13/23 16:12 TS (Rec: 12/13/23 16:28 TS [id number]) PT-Bed Mobility Assessment Sit to Supine Sit to Supine Standby Assistance PT-Transfer Assessment Sit to and From Stand Sit to and from Stand Standby Assistance,Use of Upper Extremities Equipment Transfer Assistive Device Gait Belt,Front Wheeled Walker Orthotic/Prosthetic Devices or Brace: No Comments Mobility Comments STS from chair SBA with FWW, pt demonstrates good carryover of STS technique. He ambulated with slow step thru gait ~100'SBA with FWW. He performed steps x3 with B handrails SBA, attempted with single rail but could not complete. He ambulated back to room. Stand to sit SBA, pt lets go of FWW when not safe to do so, instructed pt to maintain hold of FWW and back up to bed. Sit to supine SBA with BUE support. Pt was left in bed, all needs met. Gait Assessment Gait Gait Assistance Required: Standby Assistance Distance (Feet) 100 Able to Maintain Weight Bearing Status Yes During Gait Assistive Devices Assistive Device Gait Belt,Front Wheeled Walker Orthotic/Prosthetic Devices or Brace: No Gait Deviations General Gait Pattern Decreased Stride Length, Decreased Feet Clearance, Lateral Trunk Lean Factors Limiting Gait Function Factors Limiting Gait Function Decreased Activity Tolerance, Decreased Strength,Limited Range of Motion,Pain,Poor Balance,Poor Safety Awareness Stair Climbing Assessment Evaluation Level of Assist On Stairs Standby Assistance Devices Stair Climbing Assistive Devices Left Railing,Right Railing Technique/Endurance Stair Climbing Direction Ascend and Descend Stair Climbing Technique Step to Step Number of Steps Climbed 3 Comments Stair Climbing Comments See mobility comments PT-Balance Assessment Sitting Balance and Reactions Static Sitting Balance Ability Good Dynamic Sitting Balance Ability Fair Standing Balance and Reactions Static Standing Balance Ability Fair Dynamic Standing Balance Ability Fair Device Used FWW M5 PT-IP Objective Assessments Start: 12/11/23 16:54 Freq: NEEDED Status: Active Protocol: Document 12/11/23 14:15 AB (Rec: 12/11/23 17:06 AB [id number]) Orientation Orientation/Cognition Level of Alertness Alert Orientation Name,Place,Situation Language Function Ability Hard of Hearing Safety Awareness Decreased Safety Awareness Memory Description Short Term Impaired Gross Range of Motion Lower Extremity ROM Assessment Within Functional Limits Strength Lower Extremity Strength Assessment Bilaterally Impaired Comments Strength Comments RLE: 4-/5 LLE: 3+/5 Muscle Tone Muscle Tone WNL Yes M6 PT-IP Treatment Start: 12/11/23 16:54 Freq: NEEDED Status: Active Protocol: Document 12/13/23 16:12 TS (Rec: 12/13/23 16:28 TS [id number]) Physical Therapy Treatment Education Education Provided Safety M7 PT-IP Assessment and Plan Start: 12/11/23 16:54 Freq: NEEDED Status: Active Protocol: Document 12/13/23 16:12 TS (Rec: 12/13/23 16:28 TS [id number]) PT Summary Assessment and Plan Potential Rehabilitation Potential Fair Summary Impairments Pain,ROM,Strength,Balance, Coordination,Sensation,Tone, Cognition,Bed Mobility, Transfers,Gait,Activity Tolerance Progress Towards Goals Progressing Toward Goals Assessment Summary Darryl continues to make progress with his mobility. He is SBA for STS with FWW and demonstrates no retroleaning. He ambulated ~100'SBA with FWW and a slow step thru gait. He performed steps x3 with B handrails and SBA. PT continues to recommend SNF vs Home. He could benefit from SNF to improve functional mobility and strength before safe d/c. Goals Bed Mobility Goal Independent Transfer Goal Independent,Front Wheeled Walker Gait Goal Independent,Front Wheel Walker Gait Distance 150 Other Goals up/down 2 steps R rail SBA Frequency of Treatment Frequency Of Treatment Once a Day Treatment Plan Physical Therapy Treatment Plan Bed Mobility Training,Transfer Training,Gait Training, Therapeutic Exercise,Balance Retraining,Discharge Planning, Hot or Cold Pack,Neuromuscular Re-ed,Coordination Retraining ,Manual Therapy Precautions Other Precautions falls Recommendations To Nursing Amount of Assist Needed 1 Person Assist Discharge Recommendations PT Discharge Recommendations Home with 26/03 Assist Available,Home Health,SNF Rehab,Home vs SNF Transportation Needs at Discharge Private Vehicle,Wheelchair/ Cabulance
--- NOTE | 2023-12-13 16:02 | P.PN_ITS ---
Subjective Subjective Interval history: Patient underwent nuclear stress which was mostly normal other than one minor defect which may have been artifact. Patient no willing to do to SNF. Exam Vital Signs (past 8 hours): - 12/13/23 14:46 Temperature 98.0 F Pulse Rate 79 Respiratory Rate 19 Blood Pressure 138/75 Pulse Oximetry 97 Oxygen Flow Rate 0 Oxygen Delivery Method Room Air Oxygen Flow Rate 0 Narrative Exam Narrative: Gen: NAD, AOx3 Neck: trachea midline, no JVD CV: RRR, no murmurs PULM: normal respiratory effort. No wheezes or rhonchi ABD: soft, non-distended, tenderness at LLQ. EXT: warm and well perfused with 1+ pitting edema b/l in the LE. Strength ? b/l in the UE and LE. Mild tremor b/l on his UE. Objective Labs 12/13/23 04:49 12/13/23 04:49 Labs: Laboratory Results - last 24 hr 12/10/23 12/13/23 17:55 04:49 WBC 7.4 RBC 2.77 L Hgb 9.5 L Hct 28.2 L MCV 101.9 H MCH 34.4 H MCHC 33.8 RDW 14.8 Plt Count 163 Neut % (Auto) 57.0 Lymph % (Auto) 30.0 Bullock % (Auto) 9.7 Eos % (Auto) 1.9 L Baso % (Auto) 1.4 Neut # (Auto) 4200 Lymph # (Auto) 2200 Bullock # (Auto) 700 Eos # (Auto) 100 Baso # (Auto) 100 Sodium 138 Potassium 3.9 Chloride 112 H Carbon Dioxide 19 L BUN 37 H Creatinine 2.49 H Estimated GFR 25 L BUN/Creatinine Ratio 14.9 Glucose 138 H Calcium 8.7 Magnesium 2.1 PTH Intact 14 L Calcium (PTH Intact) 10.0 PTH Intact Intraop Comment PFSH Medical History Encounter for subsequent annual wellness visit (AWV) in Medicare patient Macrocytosis CKD (chronic kidney disease) stage 3, GFR 30-59 ml/min Chronic low back pain Hearing impaired IPF (idiopathic pulmonary fibrosis) Hypothyroid Diabetes Hyperlipidemia Hypertension Coronary artery disease Anemia Tubular adenoma of colon Surgical History Status post lung transplantation Hx of cholecystectomy Hx of bilateral cataract extraction H/O lung transplant (2009) Family History Father Patient denies significant medical history Mother Patient denies significant medical history Social History marital status: household members: spouse Smoking Status: Former smoker alcohol intake: former Assessment & Plan Assessment & Plan narrative: # generalized weakness possibly 2/2 hypothyroidism -labs show anemia but this is chronic -PT and OT evaluation -likely due to low thyroid, as TSH is 41 -increase synthroid to 175mcg # new WMA on echo -echo EF 50-55%, hypokinesis of inferior and inferoseptal wall, mild-mod changed from only mild, both new when compared to prior echo in Oct 2022 -nuclear stress test on 12/12 shows minor reversible defect which may be artifact -given no chest pain will not pursue further workup at this time # diverticulitis -seen on CT, patient with mild LLQ pain -deescalate zosyn to augmentin to complete 7 days # hypercalcemia, resolved -PTH pending -likely due to being dry -Ca now normalized # THERESA on CKD -IVF -monitor Code status is DNR. DVT prophylaxis with heparin subQ. Proxy is Dieter. I have reviewed home meds and used all available resources to reconcile the home meds. Dispo: SNF on 12/13. Quality VTE Deep Vein Thrombosis/Pulmonary Embolism Present on Admission: No
--- NOTE | 2023-12-13 16:58 | OT.IP.TRT ---
Occupational Therapy Treatment Note M2 OT-IP Current Condition Start: 12/11/23 12:31 Freq: Status: Active Protocol: Document 12/11/23 11:47 [facility] (Rec: 12/11/23 12:43 [facility] [id number]) Occupational Therapy Current Condition Current Condition Evaluation Date 12/11/23 Treatment Diagnosis Generalized weakness Diagnosis Onset Date 12/10/23 M3 OT- IP Subjective and Pain Start: 12/11/23 12:31 Freq: Status: Active Protocol: Document 12/13/23 16:58 [facility] (Rec: 12/13/23 17:08 [facility] [id number]) OT- Subjective Occupational Therapy Visit Type Type Treatment Note Visit Start Time 16:32 Visit Stop Time 16:58 Occupational Therapy Visit Comments Patient Comments Pt agreed to get up for dinner and sit in the recliner. Patient/Caregiver Goals TO get better. OT Pain Assessment Pain When Pain Assessed During Mobility Pain Present Pain Present Pain Reported Location Lower Back Intensity 7 Scale Used Numeric (0 - 10) M4 OT- IP ADL's Start: 12/11/23 12:31 Freq: Status: Active Protocol: Document 12/13/23 16:58 [facility] (Rec: 12/13/23 17:08 [facility] [id number]) OT KGD-Terb-Cnwbvic Comments OT Self-Feeding Comments Not at meal time. OT ADL-Grooming General Evaluation Grooming Ability Standby Assistance Comments OT Grooming Comments Pt able to stand at the sink with FWW to do grooming needs. OT ADL-Oral Care Comments Oral Care Comments Not performed. OT ADL-Dressing Comments OT Dressing Comments Pt insists that he just wears slip on shoes and not interested to wear socks. Educated on pt for sock aid that can assist him if needed, especially since pt has back pain. OT ADL-Toileting General Evaluation Toileting Ability Standby Assistance Comments OT Toileting Comments Pt able to toilet on his own with close sba and heavy use of his arms on the FWW and grab bar for his balance. M6 OT- IP Functional Cognition Start: 12/11/23 12:31 Freq: Status: Active Protocol: Document 12/13/23 16:58 [facility] (Rec: 12/13/23 17:08 [facility] [id number]) Cognitive Factors Limiting Selfcare Function Cognitive Comments Cognitive Assessment Comments Pt realizes that it is best for him to go to skilled rehab to get stronger and also states he and his are considering to move to a facility in order to get more care as both of them realize they are having a difficult time to be able to care for themselves. M7 OT- IP Mobility and Balance Start: 12/11/23 12:31 Freq: Status: Active Protocol: Document 12/13/23 16:58 [facility] (Rec: 12/13/23 17:08 [facility] [id number]) OT- Bed Mobility Assessment Supine to Sit Supine to Sit Assist Standby Assistance OT-Transfer Assessment Sit to and From Stand Sit to and from Stand Contact Guard Assistance, Minimal Assistance,Maximum Assistance Transfers Transfer Ability Standby Assistance,Contact Guard Assistance Technique Transfer Destination Bed,Chair,Toilet Transfer Technique Stand Step Pivot Devices Transfer Assistive Devices Gait Belt,Front Wheeled Walker Comments Mobility Comments Heavy use of his arms on the bed rail in order to get up and increased time to get up from side lying. Pt heavily uses his hands to grab the FWW to stand and needing CGA. When asking pt to push on the bed instead for safety , pt needing CHRISTIANA to stand and use of his the back on his legs to help come to stand . When asking pt to come to stand with just using his legs needing MAXA. Pt continues to need assist to help slow down his decent when sitting down. Pt is a high fall risk. OT- Balance Assessment Sitting Balance and Reactions Static Sitting Balance Ability Good Dynamic Sitting Balance Ability Fair Standing Balance and Reactions Static Standing Balance Ability Fair Dynamic Standing Balance Ability Poor+ Comments Other Balance Tests/Deviations/Treatment Having to use the FWW for : balance and heavy use on his BUE on the FWW for balance. M8 OT- IP Objective Assessments Start: 12/11/23 12:31 Freq: Status: Active Protocol: Document 12/12/23 13:49 [facility] (Rec: 12/12/23 14:13 [facility] [id number]) OT- Coordination Assessment Upper Extremity Finger to Nose Test Left UE Impaired Comments Coordination Comments Pt finger to nose way off with LUE today. M9 OT- IP Assessment and Plan Start: 12/11/23 12:31 Freq: Status: Active Protocol: Document 12/13/23 16:58 [facility] (Rec: 12/13/23 17:08 [facility] [id number]) OT Summary Assessment and Plan Potential Rehabilitation Potential Good Analytic Complexity at Evaluation Moderate Summary OT Impairments Pain,Strength,Balance, Functional Mobility,Dressing, Toileting,Bathing,Toilet Transfers,Shower Transfers, Activity Tolerance Progress Towards Goals Slow Progress due to Pain,Slow Progress due to Medical Issues,Slow Progress due to Activity Tolerance,Slow Progress due to Cognition Assessment Summary Pt will greatly benefit from skilled rehab to work on his balance, strength especially in his legs so to be more independent for his ADL needs, activity tolerance, and memory strategies at skilled rehab. Pt looking to go tomorrow. Goals Self-Feeding Goal Independent Grooming Goal Independent Dressing Goal Independent Toileting Goal Independent Bathing Goal Standby Assistance Toilet Transfer Goal Independent Shower Transfer Goal Standby Assistance Days to Meet Goals 9 Frequency of Treatment Frequency Of Treatment Once a Day Treatment Plan OT Treatment Plan ADL Training,Functional Mobility,Patient/Family Education,Discharge Planning Discharge Recommendations OT Discharge Recommendations SNF Rehab Transportation Needs at Discharge Wheelchair/Cabulance
[2023-12-13] MEDS: ACETAMINOPHEN 325 MG TABLET 650 MG PO (17:01)
[2023-12-13 20:55] VITALS: BP 127/68; PULSE 93; RESP 17; TEMP 36.6; O2SAT 93
[2023-12-13] MEDS: AMOXICILLIN/CLAV 500/125 MG 1 TAB PO (21:15)
[2023-12-13 21:16] VITALS: BP 127/88; PULSE 93
[2023-12-13] MEDS: TACROLIMUS 0.5 MG CAPSULE PO (21:17)
[2023-12-14 00:13] VITALS: BP 102/57; PULSE 93; RESP 16; TEMP 36.6; O2SAT 97
[2023-12-14 04:00] VITALS: BP 138/86; PULSE 90; RESP 17; TEMP 36.4; O2SAT 95
[2023-12-14 05:18] LABS: Free T4, Direct Thyroxine 1.17 ng/dL (0.78-2.19)
[2023-12-14 06:10] LABS: Add Manual Diff / Slide Review NO; Basophils Absolute Auto 100 /uL (0-100); Basophils Percent Auto 1.1 % (0-2); Eosinophils Absolute Auto 100 /uL (0-450); Eosinophils Percent Auto 1.9 % (2-4); Hematocrit 30.3 % (41-53); Hemoglobin 10.3 g/dL (13.5-17.5); Lymphocytes Absolute Auto 2500 /uL (1100-4500); Lymphocytes Percent Auto 34.6 % (25-40); Mean Corpuscular HGB Conc 34.1 % (30-36); Mean Corpuscular Hemoglobin 34.7 PG (26-34); Mean Corpuscular Volume 101.7 fL (80-100); Monocytes Absolute Auto 800 /uL (0-900); Monocytes Percent Auto 11.3 % (3-14); Neutrophils Absolute Auto 3700 /uL (1500-7000); Neutrophils Percent Auto 51.1 % (50-75); Platelet Count 184 X10^3/uL (150-400); Red Blood Cell Count 2.98 X10^6/uL (4.5-5.9); Red Cell Distribution Width 15.3 % (11.6-14.8); White Blood Cell Count 7.3 X10^3/uL (4.5-11.0)
[2023-12-14] MEDS: LEVOTHYROXINE 100 MCG, LEVOTHYROXINE 75 MCG 175 MCG PO (06:10)
[2023-12-14] MEDS: PANTOPRAZOLE DR 20 MG TABLET PO (06:10)
[2023-12-14 06:18] LABS: BUN Creatinine Ratio 16.4 (6-22); Blood Urea Nitrogen 36 mg/dL (9-20); Calcium 8.5 mg/dL (8.4-10.2); Carbon Dioxide 21 mmol/L (22-32); Chloride 114 mmol/L (98-107); Estimated Glomerular Filt Rate 29 mL/min (>60); Glucose 112 mg/dL (80-110); HEMOLYSIS < 15 (0-50); Potassium 4.1 mmol/L (3.4-5.1); Sodium 140 mmol/L (137-145)
[2023-12-14 07:55] VITALS: BP 140/83; PULSE 87; RESP 19; TEMP 36.6; O2SAT 97
[2023-12-14] MEDS: TACROLIMUS 0.5 MG CAPSULE 1 MG PO (08:09)
[2023-12-14] MEDS: carvediloL 3.125 MG TABLET PO (08:09)
[2023-12-14] MEDS: HEPARIN 5,000 UNIT/ML VIAL 5000 UNIT SUBCUT (08:10)
[2023-12-14] MEDS: predniSONE 5 MG TABLET PO (08:10)
[2023-12-14] MEDS: AMOXICILLIN/CLAV 500/125 MG 1 TAB PO (08:10)
[2023-12-14] MEDS: TAMSULOSIN 0.4 MG CAPSULE PO (08:10)
[2023-12-14] MEDS: ACETAMINOPHEN 325 MG TABLET 650 MG PO (08:10)
--- NOTE | 2023-12-14 09:18 | PT.IPTN ---
Physical Therapy Treatment Note M2 PT-IP Current Condition Start: 12/11/23 16:54 Freq: NEEDED Status: Active Protocol: Document 12/11/23 14:15 AB (Rec: 12/11/23 17:06 AB [id number]) Physical Therapy Current Condition Current Condition Evaluation Date 12/11/23 Treatment Diagnosis weakness; diverticulitis; difficulty in walking Onset Date 12/10/23 M3 PT-IP Subjective Start: 12/11/23 16:54 Freq: NEEDED Status: Active Protocol: Document 12/14/23 10:17 TS (Rec: 12/14/23 10:23 TS [id number]) Subjective Physical Therapy Visit Type Type Treatment Note Visit Start Time 09:18 Visit Stop Time 09:41 Number of [employer] Visits 3 Physical Therapy Visit Comments Patient Comments pt found in restroom, is agreeable to PT. M4 PT-IP Mobility and Gait Start: 12/11/23 16:54 Freq: NEEDED Status: Active Protocol: Document 12/14/23 10:17 TS (Rec: 12/14/23 10:23 TS [id number]) PT-Transfer Assessment Sit to and From Stand Sit to and from Stand Standby Assistance Equipment Transfer Assistive Device Gait Belt,Front Wheeled Walker Orthotic/Prosthetic Devices or Brace: No Comments Mobility Comments STS from toilet SBA with FWW. Pt ambulated ~250'SBA with FWW , had no buckling or LOB. He performed steps x6 with B handrails and some buckling of LLE. pt ambulated back to room, was left in chair with all needs met. Gait Assessment Gait Gait Assistance Required: Standby Assistance Distance (Feet) 250 Able to Maintain Weight Bearing Status Yes During Gait Assistive Devices Assistive Device Gait Belt,Front Wheeled Walker Orthotic/Prosthetic Devices or Brace: No Gait Deviations General Gait Pattern Decreased Stride Length, Decreased Feet Clearance, Lateral Trunk Lean Factors Limiting Gait Function Factors Limiting Gait Function Decreased Activity Tolerance, Decreased Strength,Limited Range of Motion,Pain,Poor Balance,Poor Safety Awareness Stair Climbing Assessment Evaluation Level of Assist On Stairs Standby Assistance Devices Stair Climbing Assistive Devices Left Railing,Right Railing Technique/Endurance Stair Climbing Direction Ascend and Descend Stair Climbing Technique Step to Step Number of Steps Climbed 6 Comments Stair Climbing Comments See mobility comments PT-Balance Assessment Sitting Balance and Reactions Static Sitting Balance Ability Good Dynamic Sitting Balance Ability Fair Standing Balance and Reactions Static Standing Balance Ability Fair Dynamic Standing Balance Ability Fair Device Used FWW M5 PT-IP Objective Assessments Start: 12/11/23 16:54 Freq: NEEDED Status: Active Protocol: Document 12/11/23 14:15 AB (Rec: 12/11/23 17:06 AB [id number]) Orientation Orientation/Cognition Level of Alertness Alert Orientation Name,Place,Situation Language Function Ability Hard of Hearing Safety Awareness Decreased Safety Awareness Memory Description Short Term Impaired Gross Range of Motion Lower Extremity ROM Assessment Within Functional Limits Strength Lower Extremity Strength Assessment Bilaterally Impaired Comments Strength Comments RLE: 4-/5 LLE: 3+/5 Muscle Tone Muscle Tone WNL Yes M6 PT-IP Treatment Start: 12/11/23 16:54 Freq: NEEDED Status: Active Protocol: Document 12/14/23 10:17 TS (Rec: 12/14/23 10:23 TS [id number]) Physical Therapy Treatment Education Education Provided Safety M7 PT-IP Assessment and Plan Start: 12/11/23 16:54 Freq: NEEDED Status: Active Protocol: Document 12/14/23 10:17 TS (Rec: 12/14/23 10:23 TS [id number]) PT Summary Assessment and Plan Potential Rehabilitation Potential Fair Summary Impairments Pain,ROM,Strength,Balance, Coordination,Sensation,Tone, Cognition,Bed Mobility, Transfers,Gait,Activity Tolerance Progress Towards Goals Progressing Toward Goals Assessment Summary Darryl continues to make progress with his mobility. He progressed his gait to ~250' SBA with FWW. He performed stairs x6 SBA with B handrails , had some slight buckling in LLE. PT recommends SNF vs home . Pt could benefit from SNF stay to progress strength and activity tolerance prior to safe d/c home. Goals Bed Mobility Goal Independent Transfer Goal Independent,Front Wheeled Walker Gait Goal Independent,Front Wheel Walker Gait Distance 150 Other Goals up/down 2 steps R rail SBA Frequency of Treatment Frequency Of Treatment Once a Day Treatment Plan Physical Therapy Treatment Plan Bed Mobility Training,Transfer Training,Gait Training, Therapeutic Exercise,Balance Retraining,Discharge Planning, Hot or Cold Pack,Neuromuscular Re-ed,Coordination Retraining ,Manual Therapy Precautions Other Precautions falls Recommendations To Nursing Amount of Assist Needed 1 Person Assist Discharge Recommendations PT Discharge Recommendations Home with 26/03 Assist Available,Home Health,SNF Rehab,Home vs SNF Transportation Needs at Discharge Private Vehicle,Wheelchair/ Cabulance
--- NOTE | 2023-12-14 10:19 | P.DS_ITS ---
History of Present Illness History of Present Illness Date Patient Seen: 12/14/23 Time Patient Seen: 10:19 Chief complaint: weakness, slurred speech, fall Narrative: Per admitting provider, Neo is an 82YO M with a history of CKD, and DM2. He is presenting to the ER with a CC of generalized weakness. This is his third visit to the ER over the last month. His symptoms started a 25 days ago. He presented to the ER for the first time on November 19 for generalized weakness and was discharged without a definitive diagnosis. He then came to the ER 2 weeks ago for progressive weakness and was again discharged without a definitive diagnosis. Today, his weakness has progressively worsened. He was brought in via wheelchair and is no longer able to ambulate with a cane or walker. His reports lethargy and that he has been ?sleeping all day.? He denies CP, SOB, NV, abd pain or diarrhea. Discharge Providers Provider Date of admission: 12/10/23 16:21 Discharge Date: 12/14/23 Primary care physician: Shy Angel DO Consults: 12/10/23 16:16 Consult to Physical Therapy Evaluate & Treat Comment: Physician Instructions: Evaluate and Treat 12/10/23 17:30 Consult to Occupational Therapy Evaluate & Treat Comment: Physician Instructions: Evaluate and treat Consult to Physical Therapy Evaluate & Treat Comment: Physician Instructions: Evaluate and Treat 12/12/23 11:49 Consult to Home Health Routine Comment: Reason For Exam: Home health services upon discharge Discharge provider: Alli Ghosh DO Summary Hospital Course Discharge Diagnosis: # generalized weakness possibly 2/2 hypothyroidism # new WMA on echo # diverticulitis # hypercalcemia, resolved # THERESA on CKD #history of lung transplant Hospital Course: This is an 83 year old male who was admitted with weakness, and mild diverticulitis. He was mildly dehydrated, with elevated Cr and calcium, both of which improvement with fluids. His home synthroid was also increased given TSH of >40 on admission labs. PT and OT evaluations recommended SNF. He did have an echocardiogram which showed a new wall motion abnormality in the setting of his weakness. patient was kept for nuclear stress testing which showed possible minor reversible defect or possible artifact, but given no chest pain or cardiac symptoms acute evaluation of this was not deemed necessary. He should follow up with an outpatient boot and shoe repairman for continued evaluation. He was discharged on a few more days of antibiotics for his diverticulitis. Time Spent with Patient Time spent: Greater than 30 minutes Exam Vital Signs (past 8 hours): - 12/14/23 04:00 12/14/23 07:55 Temperature 97.6 F 97.8 F Pulse Rate 90 87 Respiratory Rate 17 19 Blood Pressure 138/86 140/83 Pulse Oximetry 95 97 Oxygen Flow Rate 0 Oxygen Delivery Method Room Air Oxygen Flow Rate 0 Narrative Exam Narrative: Gen: NAD, AOx3 Neck: trachea midline, no JVD CV: RRR, no murmurs PULM: normal respiratory effort. No wheezes or rhonchi ABD: soft, non-distended, non-tender Objective Labs 12/14/23 05:20 12/14/23 05:20 Labs: Laboratory Results - last 24 hr 12/10/23 12/14/23 12:40 05:20 WBC 7.3 RBC 2.98 L Hgb 10.3 L Hct 30.3 L MCV 101.7 H MCH 34.7 H MCHC 34.1 RDW 15.3 H Plt Count 184 Neut % (Auto) 51.1 Lymph % (Auto) 34.6 Dolores % (Auto) 11.3 Eos % (Auto) 1.9 L Baso % (Auto) 1.1 Neut # (Auto) 3700 Lymph # (Auto) 2500 Dolores # (Auto) 800 Eos # (Auto) 100 Baso # (Auto) 100 Sodium 140 Potassium 4.1 Chloride 114 H Carbon Dioxide 21 L BUN 36 H Creatinine 2.19 H Estimated GFR 29 L BUN/Creatinine Ratio 16.4 Glucose 112 H Calcium 8.5 Free T4 1.17 PFSH Medical History Encounter for subsequent annual wellness visit (AWV) in Medicare patient Macrocytosis CKD (chronic kidney disease) stage 3, GFR 30-59 ml/min Chronic low back pain Hearing impaired IPF (idiopathic pulmonary fibrosis) Hypothyroid Diabetes Hyperlipidemia Hypertension Coronary artery disease Anemia Tubular adenoma of colon Surgical History Status post lung transplantation Hx of cholecystectomy Hx of bilateral cataract extraction H/O lung transplant (2009) Family History Father Patient denies significant medical history Mother Patient denies significant medical history Social History marital status: household members: spouse Smoking Status: Former smoker alcohol intake: former Discharge Plan Discharge Plan Patient Disposition: SNF Transfer to: [facility] Provider Discharge Comment: 83 M admitted with weakness with past history of lung transplantation, has possible diverticulitis improved with antibiotics, recommended for completion of 7 day course of therapy. Did have cardiac workup which is possibly abnormal stress testing, will treat medically, recommend outpatient referral to cardiology to see if additional workup is warranted (not recommended inpatient). I certify the postop hospital long-term care is medically necessary on a continuing basis for any conditions for which he/ she received care during this hospitalization.: Yes The receiving facility has agreed to accept transfer and provide medical treatment.: Yes Discharge orders & Medications Prescriptions: New amoxicillin-pot clavulanate [Augmentin] 500-125 mg Tablet 1 tab PO BID 4 Days Qty: 8 0RF diclofenac sodium 1 % Gel 2 g topical QID Qty: 100 0RF levothyroxine [Synthroid] 175 mcg Tablet 175 mcg PO 0600 Qty: 30 0RF Continued Epogen 20,000 unit/2 mL solution See Rx Instructions .ROUTE .COMPLEX Rx Instructions: Pt states receives injection every other week on Wednesdays. valganciclovir 450 mg tablet 450 mg PO .three times weekly Qty: 39 4RF Rx Instructions: M/W/ Januvia 50 mg tablet 50 mg PO DAILY Qty: 90 3RF tamsulosin 0.4 mg capsule 0.4 mg PO DAILY sulfamethoxazole-trimethoprim 800-160 mg tablet See Rx Instructions .ROUTE .COMPLEX Rx Instructions: 1/2 tab sunday, sunday, sunday gabapentin 100 mg capsule 200 mg PO Q8H PRN (Reason: pain) Qty: 90 11RF ferrous sulfate [FeroSul] 325 mg (65 mg iron) tablet 325 mg PO 3XW Rx Instructions: M// prednisone 5 mg tablet 5 mg PO DAILY Patient Comments: TAKE 1 TABLET BY MOUTH EVERY DAY tacrolimus 1 mg capsule 1 mg PO QAM Patient Comments: TAKE 1 CAPSULE BY MOUTH EVERY DAY IN THE MORNING tacrolimus 0.5 mg capsule 0.5 mg PO QPM Patient Comments: TAKE 1 CAPSULE BY MOUTH EVERY EVENING itraconazole 100 mg capsule 100 mg PO BID azithromycin 500 mg tablet 500 mg PO 3XW ascorbic acid (vitamin C) 500 mg capsule 500 mg PO DAILY carvedilol 3.125 mg tablet 3.125 mg PO BID Rx Instructions: must administer with a meal/food sod phos di, mono-K phos mono 250 mg tablet 1 tab PO DAILY omeprazole 20 mg capsule,delayed release(DR/EC) 20 mg PO DAILY Discontinued levothyroxine 150 mcg tablet 150 mcg PO DAILY bumetanide 1 mg tablet 1 mg PO DAILY Qty: 90 3RF Rx Instructions: stop furosemide Follow up/Referrals: Shy Angel DO [Primary Care Provider] - Visit Report/Discharge Packet Stand Alone Forms: Patient Portal/API Discharge Data Primary Care Provider: Shy Angel Attending Provider: Dennys Moreland Admit Date/Time: 12/10/23 16:21 Quality VTE Deep Vein Thrombosis/Pulmonary Embolism Present on Admission: No
--- NOTE | 2023-12-14 10:48 | PC.NURSE ---
Patient was taking off his tele strips to get cleaned up and it caused him a skin tear. Allevyn foam border dressing applied to r.chest and patient is doing well. He is steady on his feet and resting in chair now. Appetite is good and bs this am was 112.
[2023-12-14 11:00] VITALS: BP 118/63; PULSE 77; RESP 22; TEMP 36.3; O2SAT 96
[2023-12-14] MEDS: INSULIN LISPRO 100 UNIT/ML 3ML VIAL SUBCUT (12:18)
--- NOTE | 2023-12-14 13:32 | CM.DPNOTE ---
DC Note Discharge to [facility]; [facility] at [facility] accepts for admission today, spouse Dieter has arranged the payment. ALEKSEY Rose, kindly agreed to coordinate the remainder of the coordination. Patient's transport was arranged for lemon picker between [id number]. DC ppk, meds and completed PASRR sent to [facility]. Patient and family remained agreeable to plan. Plan: Discharge to [facility] via cabulance transport. Private payment for SNF stay. BERTHA
--- NOTE | 2023-12-24 09:07 | PC.NURSE ---
Late Entry: Piperacillin infusion initiated 12/09 at 1639 complete at 1710.
== END 2023-12-14 13:30 ==
LOC: ED 12:49 → AC 16:22
PROVIDERS: Admitting Provider Student in an Organized Health Care Education/Training Program; Emergency Provider Emergency Medicine; PCP Family Medicine; Referring Provider Emergency Medicine; Visit Provider Student in an Organized Health Care Education/Training Program
DX: R53.1 Weakness (principal); E11.22 Type 2 diabetes mellitus with diabetic chronic kidney disease; I12.9 Hypertensive chronic kidney disease with stage 1 through stage 4 chronic kidney disease, or unspecified chronic kidney disease; N18.9 Chronic kidney disease, unspecified; N17.9 Acute kidney failure, unspecified; Z94.2 Lung transplant status; Z79.84 Long term (current) use of oral hypoglycemic drugs; K57.32 Diverticulitis of large intestine without perforation or abscess without bleeding; E83.52 Hypercalcemia
CPT/HCPCS: 36415; 71045; 74176; 78452; 80048; 80053; 80197; 81001; 81003; 82310; 82550; 82962; 83036; 83605; 83690; 83735; 83880; 83970; 84145; 84439; 84443; 84484; 85025; 85610; 85730; 87040; 87633; 93010; 93017; 93306; 96361; 96365; 96366; 96372; 97116; 97129; 97130; 97162; 97166; 97530; 97535; 99285; G0378; A9270; A9502; J1644; J1815; J2543; J2785; J3475; J7507

== ENCOUNTER → 2024-01-23 09:24 | Outpatient (CLI) | payer MEDICARE, SELFPAY ==
[2023-12-10 16:27] VITALS: BMI 27.9
[2024-01-23 10:02] LABS: Hematocrit 27.8 % (41-53); Hemoglobin 9.2 g/dL (13.5-17.5)
[2024-01-23 10:17] LABS: BUN Creatinine Ratio 28.8 (6-22); Blood Urea Nitrogen 51 mg/dL (9-20); Carbon Dioxide 21 mmol/L (22-32); Chloride 113 mmol/L (98-107); Estimated Glomerular Filt Rate 37 mL/min (>60); Glucose 148 mg/dL (80-110); HEMOLYSIS < 15 (0-50); Potassium 4.3 mmol/L (3.4-5.1); Sodium 139 mmol/L (137-145)
[2024-01-23] MEDS: EPOETIN ALFA-EPBX 20,000 UNIT/ML VIAL 20000 UNIT SUBCUT (10:33)
[2024-01-23 10:59] VITALS: BP 106/54; PULSE 73; RESP 16; TEMP 36.8
== END ==
PROVIDERS: Family Provider Family Medicine; PCP Family Medicine; Referring Provider Internal Medicine Nephrology; Visit Provider Internal Medicine Nephrology
DX: N18.32 Chronic kidney disease, stage 3b (principal); D63.1 Anemia in chronic kidney disease
CPT/HCPCS: 80048; 85014; 85018; 96372; Q5106

== ENCOUNTER → 2024-01-30 09:21 | Outpatient (CLI) | payer MEDICARE, SELFPAY ==
[2023-12-10 16:27] VITALS: BMI 27.9
[2024-01-30 09:34] VITALS: BP 110/59; PULSE 75; RESP 16; TEMP 37; O2SAT 100
[2024-01-30] MEDS: EPOETIN ALFA-EPBX 20,000 UNIT/2 ML VIAL 20000 UNIT SUBCUT (09:56)
== END ==
PROVIDERS: Family Provider Family Medicine; PCP Family Medicine; Referring Provider Internal Medicine Nephrology; Visit Provider Internal Medicine Nephrology
DX: N18.32 Chronic kidney disease, stage 3b (principal); D63.1 Anemia in chronic kidney disease
CPT/HCPCS: 96372; Q5106

== ENCOUNTER → 2024-02-06 08:53 | Outpatient (CLI) | payer MEDICARE, SELFPAY ==
[2023-12-10 16:27] VITALS: BMI 27.9
[2024-02-06 09:47] VITALS: BP 146/79; PULSE 75; RESP 16; TEMP 36.7; O2SAT 98
[2024-02-06 09:51] LABS: Hematocrit 28.9 % (41-53); Hemoglobin 9.5 g/dL (13.5-17.5)
[2024-02-06] MEDS: EPOETIN ALFA-EPBX 20,000 UNIT/ML VIAL 20000 UNIT SUBCUT (10:13)
[2024-02-06 10:20] VITALS: BP 165/89; PULSE 78; RESP 16; O2SAT 100
== END ==
PROVIDERS: Family Provider Family Medicine; PCP Family Medicine; Referring Provider Internal Medicine Nephrology; Visit Provider Internal Medicine Nephrology
DX: N18.32 Chronic kidney disease, stage 3b (principal); D63.1 Anemia in chronic kidney disease
CPT/HCPCS: 85014; 85018; 96372; Q5106

== ENCOUNTER → 2024-02-20 09:24 | Outpatient (CLI) | payer MEDICARE, SELFPAY ==
[2023-12-10 16:27] VITALS: BMI 27.9
[2024-02-20 09:55] VITALS: BP 138/70; PULSE 67; RESP 16; TEMP 36.4; O2SAT 97
[2024-02-20 10:02] LABS: Hematocrit 34.9 % (41-53); Hemoglobin 11.1 g/dL (13.5-17.5)
[2024-02-20 10:22] LABS: BUN Creatinine Ratio 35.8 (6-22); Blood Urea Nitrogen 57 mg/dL (9-20); Calcium 8.8 mg/dL (8.4-10.2); Carbon Dioxide 22 mmol/L (22-32); Chloride 111 mmol/L (98-107); Estimated Glomerular Filt Rate 42 mL/min (>60); Glucose 147 mg/dL (80-110); HEMOLYSIS 35 (0-50); Potassium 4.6 mmol/L (3.4-5.1); Sodium 137 mmol/L (137-145)
[2024-02-20 10:26] LABS: HEMOLYSIS < 15 (0-50); Iron 130 ug/dL (49-181)
[2024-02-20] MEDS: EPOETIN ALFA-EPBX 20,000 UNIT/ML VIAL 20000 UNIT SUBCUT (10:31)
[2024-02-20 10:37] LABS: Percent Iron Saturation 46 % (20-50); Total Iron Binding Capacity 285 ug/dL (261-462); Transferrin 211 mg/dL (206-381)
[2024-02-20 10:57] LABS: Ferritin 109 ng/mL (18-464)
[2024-02-20 15:01] LABS: Hematocrit 33.4 % (41-53); Mean Corpuscular Volume 102.8 fL (80-100); Platelet Count 210 X10^3/uL (150-400); Red Blood Cell Count 3.25 X10^6/uL (4.5-5.9); White Blood Cell Count 7.8 X10^3/uL (4.5-11.0)
[2024-02-20 15:16] LABS: Neutrophils Absolute Manual 4914 /uL (3000-5900); Total Cells Counted 100
[2024-02-20 15:18] LABS: Macrocytosis 1+
[2024-02-20 15:32] LABS: Alanine Aminotransferase 20 IU/L (<50); Albumin 3.2 g/dL (3.5-5.0); Albumin Globulin Ratio 1.3 (1.0-2.8); Alkaline Phosphatase 151 U/L (38-126); Aspartate Aminotransferase 25 IU/L (17-59); BUN Creatinine Ratio 32.6 (6-22); Bilirubin Total 0.5 mg/dL (0.2-1.3); Blood Urea Nitrogen 56 mg/dL (9-20); Calcium 8.9 mg/dL (8.4-10.2); Carbon Dioxide 22 mmol/L (22-32); Chloride 111 mmol/L (98-107); Estimated Glomerular Filt Rate 38 mL/min (>60); Globulin 2.5 g/dL (1.7-4.1); Glucose 135 mg/dL (80-110); HEMOLYSIS < 15 (0-50); Magnesium 2.5 mg/dL (1.6-2.3); Phosphorous 3.8 mg/dL (2.3-3.7); Potassium 4.6 mmol/L (3.4-5.1); Sodium 139 mmol/L (137-145); Total Protein 5.7 g/dL (6.3-8.2)
== END ==
PROVIDERS: Family Provider Family Medicine; PCP Family Medicine; Referring Provider Internal Medicine Nephrology; Visit Provider Internal Medicine Nephrology
DX: D63.1 Anemia in chronic kidney disease (principal); Z94.2 Lung transplant status; E83.42 Hypomagnesemia; N18.32 Chronic kidney disease, stage 3b
CPT/HCPCS: 80048; 80053; 80197; 82728; 83540; 83550; 83735; 84100; 85014; 85018; 85025; 96372; Q5106

== ENCOUNTER → 2024-02-27 09:09 | Outpatient (CLI) | payer MEDICARE, SELFPAY ==
[2023-12-10 16:27] VITALS: BMI 27.9
[2024-02-27 09:33] VITALS: BP 120/58; PULSE 68; RESP 16; TEMP 36.7; O2SAT 98
[2024-02-27] MEDS: EPOETIN ALFA-EPBX 20,000 UNIT/2 ML VIAL 20000 UNIT SUBCUT (09:45)
== END ==
PROVIDERS: Family Provider Family Medicine; PCP Family Medicine; Referring Provider Internal Medicine Nephrology; Visit Provider Internal Medicine Nephrology
DX: N18.32 Chronic kidney disease, stage 3b (principal); D63.1 Anemia in chronic kidney disease
CPT/HCPCS: 96372; Q5106

== ENCOUNTER → 2024-03-04 09:22 | Outpatient (CLI) | payer MEDICARE, SELFPAY ==
[2023-12-10 16:27] VITALS: BMI 27.9
[2024-03-04 10:04] LABS: Hematocrit 34.4 % (41-53); Hemoglobin 11.2 g/dL (13.5-17.5)
[2024-03-04] MEDS: EPOETIN ALFA-EPBX 20,000 UNIT/ML VIAL 20000 UNIT SUBCUT (10:33)
[2024-03-06 14:39] LABS: CMV DNA, Quant Real Time PCR Negative (Negative)
== END ==
PROVIDERS: Family Provider Family Medicine; PCP Family Medicine; Referring Provider Internal Medicine Nephrology; Visit Provider Internal Medicine Nephrology
DX: N18.32 Chronic kidney disease, stage 3b (principal); D63.1 Anemia in chronic kidney disease; Z94.2 Lung transplant status
CPT/HCPCS: 85014; 85018; 87497; 96372; Q5106

== ENCOUNTER 2024-03-05 09:53 | Emergency (ER) | payer MEDICARE, SELFPAY ==
[2023-12-10 16:27] VITALS: BMI 27.9
[2024-03-05] VITALS (35 sets, daily range): BP systolic 79–124; BP diastolic 51–63; PULSE 89–105; RESP 11–29; TEMP 36.8–36.9; O2SAT 91–99; BMI 28.7
--- NOTE | 2024-03-05 10:12 | ED_ITS ---
HPI - General Adult General Chief complaint: Weakness Stated complaint: dehydrated Time Seen by Provider: 03/05/24 10:00 Source: patient and family Mode of arrival: Ambulatory Limitations: no limitations History of Present Illness HPI narrative: Patient is an 83-year-old male. 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 Denies any chronic medical problems who is here for evaluation of origin initially described as dehydrated however appears that this morning the patient states he was weak and could not get up. At baseline he uses a walker but he states that his hands were shaking and he was just very weak and had difficult time getting around. He has also been incontinent of urine. He denies chest pain, shortness of breath, abdominal pain. No fevers. He does have lower extremity swelling that has been present for the past month. Related Data Home Medications Medication Instructions Recorded Confirmed prednisone 5 mg tablet 5 mg PO DAILY 09/18/20 01/17/24 tacrolimus 1 mg capsule, 1 mg PO QAM 09/18/20 01/17/24 immediate-release tamsulosin 0.4 mg capsule 0.4 mg PO DAILY 10/30/22 01/17/24 epoetin hanh 20,000 unit/2 mL See Rx Instructions .Route .COMPLEX 11/16/22 01/17/24 injection solution (Epogen) ascorbic acid (vitamin C) 500 mg 500 mg PO DAILY 04/17/23 01/17/24 capsule carvedilol 3.125 mg tablet 3.125 mg PO BID 04/17/23 01/17/24 omeprazole 20 mg capsule,delayed 20 mg PO DAILY 04/17/23 01/17/24 release sodium di- and 1 tab PO DAILY 04/17/23 01/17/24 monophosphate-potassium phos monobasic 250 mg tablet sulfamethoxazole 800 See Rx Instructions .Route .COMPLEX 04/30/23 01/17/24 mg-trimethoprim 160 mg tablet ferrous sulfate 325 mg (65 mg 325 mg PO 3XW 09/26/23 01/17/24 iron) tablet (FeroSul) itraconazole 100 mg capsule 100 mg PO BID 12/10/23 01/17/24 azithromycin 500 mg tablet 500 mg PO 3XW lung transplant 01/02/24 01/17/24 bumetanide 1 mg tablet 1 mg PO DAILY PRN leg 02/08/24 swelling/weight gain Previous Rx's Medication Instructions Recorded valganciclovir 450 mg tablet 450 mg PO .three times weekly CMV 08/29/23 prophylaxis #39 tabs sitagliptin phosphate 50 mg tablet 50 mg PO DAILY #90 tabs 10/24/23 (Januvia) diclofenac sodium 1 % topical gel 2 g topical QID #100 grams 12/14/23 levothyroxine 175 mcg tablet 175 mcg PO 0600 #90 tabs 01/14/24 (Synthroid) gabapentin 100 mg capsule 200 mg (2 x 100 mg) PO Q8H PRN for 02/18/24 pain #540 caps azithromycin 250 mg tablet 250 mg PO DAILY 4 days #4 tabs 03/05/24 Allergies Allergy/AdvReac Type Severity Reaction Status Date / Time No Known Drug Allergies Allergy Verified 01/17/24 09:52 Review of Systems Review of Systems ROS Unobtainable: All systems reviewed & are unremarkable except as noted in HPI and below Patient History Medical History (Updated 03/05/24 @ 14:48 by Home Issa DO) Aortic stenosis Encounter for subsequent annual wellness visit (AWV) in Medicare patient Macrocytosis CKD (chronic kidney disease) stage 3, GFR 30-59 ml/min Chronic low back pain Hearing impaired IPF (idiopathic pulmonary fibrosis) Hypothyroid Diabetes Hyperlipidemia Hypertension Coronary artery disease Anemia Tubular adenoma of colon Surgical History Status post lung transplantation Hx of cholecystectomy Hx of bilateral cataract extraction H/O lung transplant (2009) Family History Father Patient denies significant medical history Mother Patient denies significant medical history Social History marital status: household members: spouse Smoking Status: Former smoker alcohol intake: former Smoking Status: Former smoker alcohol intake frequency: holidays/special occasions only Substance Use Type: does not use Exam Initial Vital Signs Initial Vital Signs: Vital Signs Temperature 98.2 F 03/05/24 10:00 Pulse Rate 96 H 03/05/24 10:00 Respiratory Rate 18 03/05/24 10:00 Blood Pressure 107/57 L 03/05/24 10:00 Pulse Oximetry 94 03/05/24 10:00 Oxygen Delivery Method Room Air 03/05/24 10:00 Const General: cooperative and comfortable HENMT Head: normal to inspection and normocephalic Resp Effort & Inspection: normal respiratory effort Auscultation: clear to auscultation bilaterally Cardio Rate: regular rate Rhythm: regular rhythm GI Inspection: normal to inspection and non-distended Skin General: no rashes or lesions noted Neuro General: patient alert, patient awake and moves all extremities Extrem General: edema Psych Appearance: grossly normal and well kempt Course Orders Ordered: ED Orders 03/05/24 10:13 EKG-12 Lead Stat 03/05/24 10:17 Complete Blood Count AUTO DIFF Stat Comprehensive Metabolic Panel Stat Lactate (Lactic Acid) Stat Lipase Stat Magnesium Stat NT-proBNP (BNP-Adult 18+) Stat Procalcitonin Stat Thyroid Stimulating Hormone Stat Troponin & CK Cardiac Panel Stat 03/05/24 10:25 Respiratory Panel (Film Array) Stat 03/05/24 10:28 XR chest 1V Stat 03/05/24 12:24 Ictotest Urine Stat 03/05/24 12:27 Troponin & CK Cardiac Panel Stat Discontinued Medications Azithromycin (Azithromycin 250 Mg Tablet) 500 mg PO NOW ONE Stop: 03/05/24 13:54 Last Admin: 03/05/24 14:05 Dose: 500 mg Documented By: SB Vital Signs Vital signs: Vital Signs - 8 hr 03/05/24 10:00 03/05/24 10:06 03/05/24 10:06 Temperature 98.2 F Pulse Rate 96 H 99 H Respiratory Rate 18 23 Blood Pressure 107/57 L 107/57 L Pulse Oximetry 94 91 Oxygen Delivery Method Room Air 03/05/24 10:30 03/05/24 10:30 03/05/24 10:51 Temperature Pulse Rate 92 H Respiratory Rate 16 Blood Pressure 97/56 L 79/52 L Pulse Oximetry 95 Oxygen Delivery Method 03/05/24 10:51 03/05/24 10:56 03/05/24 10:56 Temperature Pulse Rate 93 H 94 H Respiratory Rate 21 21 Blood Pressure 91/52 L Pulse Oximetry 98 97 Oxygen Delivery Method 03/05/24 10:57 03/05/24 10:57 03/05/24 11:00 Temperature Pulse Rate 95 H Respiratory Rate Blood Pressure 96/55 L 97/55 L Pulse Oximetry 95 Oxygen Delivery Method 03/05/24 11:00 03/05/24 11:13 03/05/24 11:13 Temperature Pulse Rate 96 H 93 H Respiratory Rate 22 23 Blood Pressure 101/62 Pulse Oximetry 96 96 Oxygen Delivery Method 03/05/24 11:20 03/05/24 11:20 03/05/24 11:30 Temperature Pulse Rate 93 H Respiratory Rate Blood Pressure 105/56 L 101/55 L Pulse Oximetry 96 Oxygen Delivery Method 03/05/24 11:30 03/05/24 11:40 03/05/24 11:40 Temperature Pulse Rate 92 H 93 H Respiratory Rate 28 H 29 H Blood Pressure 110/58 L Pulse Oximetry 96 96 Oxygen Delivery Method 03/05/24 11:50 03/05/24 11:50 03/05/24 12:00 Temperature Pulse Rate 92 H 92 H Respiratory Rate 26 H 27 H Blood Pressure 100/56 L Pulse Oximetry 97 97 Oxygen Delivery Method 03/05/24 12:00 03/05/24 12:10 03/05/24 12:10 Temperature Pulse Rate 92 H Respiratory Rate Blood Pressure 112/56 L 102/57 L Pulse Oximetry 96 Oxygen Delivery Method 03/05/24 12:20 03/05/24 12:20 03/05/24 12:30 Temperature Pulse Rate 93 H Respiratory Rate 27 H Blood Pressure 124/56 L 115/56 L Pulse Oximetry 96 Oxygen Delivery Method 03/05/24 12:30 03/05/24 12:40 03/05/24 12:40 Temperature Pulse Rate 92 H 92 H Respiratory Rate 27 H 23 Blood Pressure 121/58 L Pulse Oximetry 96 97 Oxygen Delivery Method 03/05/24 12:50 03/05/24 12:50 03/05/24 13:00 Temperature Pulse Rate 92 H Respiratory Rate 26 H Blood Pressure 112/59 L 124/63 Pulse Oximetry 98 Oxygen Delivery Method 03/05/24 13:00 03/05/24 13:10 03/05/24 13:10 Temperature Pulse Rate 92 H 92 H Respiratory Rate 26 H 28 H Blood Pressure 117/63 Pulse Oximetry 98 97 Oxygen Delivery Method 03/05/24 13:20 03/05/24 13:20 03/05/24 13:30 Temperature Pulse Rate 92 H 92 H Respiratory Rate 25 H 25 H Blood Pressure 123/63 Pulse Oximetry 98 97 Oxygen Delivery Method 03/05/24 13:30 03/05/24 13:40 03/05/24 13:40 Temperature Pulse Rate 91 H Respiratory Rate 26 H Blood Pressure 122/60 105/55 L Pulse Oximetry 99 Oxygen Delivery Method 03/05/24 13:50 03/05/24 13:50 03/05/24 14:00 Temperature Pulse Rate 91 H Respiratory Rate 25 H Blood Pressure 110/57 L 110/59 L Pulse Oximetry 97 Oxygen Delivery Method 03/05/24 14:00 03/05/24 14:10 03/05/24 14:10 Temperature Pulse Rate 92 H 91 H Respiratory Rate 26 H 17 Blood Pressure 111/61 Pulse Oximetry 94 93 Oxygen Delivery Method 03/05/24 14:31 03/05/24 14:33 03/05/24 14:33 Temperature Pulse Rate 105 H 100 H Respiratory Rate 20 Blood Pressure 117/59 L Pulse Oximetry 92 Oxygen Delivery Method 03/05/24 14:41 03/05/24 14:41 03/05/24 14:51 Temperature Pulse Rate 91 H Respiratory Rate 21 Blood Pressure 87/51 L 96/53 L Pulse Oximetry 91 Oxygen Delivery Method 03/05/24 14:51 03/05/24 15:00 03/05/24 15:01 Temperature Pulse Rate 92 H 89 Respiratory Rate 11 L 27 H Blood Pressure 102/57 L Pulse Oximetry 93 91 Oxygen Delivery Method 03/05/24 15:01 03/05/24 15:05 03/05/24 15:05 Temperature Pulse Rate 89 90 Respiratory Rate 18 16 Blood Pressure 99/55 L Pulse Oximetry 94 92 Oxygen Delivery Method 03/05/24 15:10 03/05/24 15:10 03/05/24 15:38 Temperature 98.5 F Pulse Rate 90 90 Respiratory Rate 28 H 16 Blood Pressure 107/57 L 107/57 L Pulse Oximetry 93 94 Oxygen Delivery Method Room Air Medical Decision Making Lab Data Lab results reviewed: Yes I reviewed the patient's lab results. 03/05/24 10:17 03/05/24 10:17 Labs: Lab Results 03/05/24 03/05/24 03/05/24 Range/Units 10:17 10:25 12:24 WBC 16.0 H (4.5-11.0) X10^3/uL RBC 3.41 L (4.5-5.9) X10^6/uL Hgb 11.5 L (13.5-17.5) g/dL Hct 35.3 L (41-53) % MCV 103.7 H (80-100) fL MCH 33.7 (26-34) PG MCHC 32.5 (30-36) % RDW 17.4 H (11.6-14.8) % Plt Count 125 L (150-400) X10^3/uL Neut % (Auto) 86.0 H (50-75) % Lymph % (Auto) 8.9 L (25-40) % [place] % (Auto) 4.3 (3-14) % Eos % (Auto) 0.3 L (2-4) % Baso % (Auto) 0.5 (0-2) % Neut # (Auto) 79301 H (3109-8390) /uL Lymph # (Auto) 1400 (0929-2440) /uL [place] # (Auto) 700 (0-900) /uL Eos # (Auto) 100 (0-450) /uL Baso # (Auto) 100 (0-100) /uL Sodium 135 L (137-145) mmol/L Potassium 4.7 (3.4-5.1) mmol/L Chloride 110 H (98-107) mmol/L Carbon Dioxide 20 L (22-32) mmol/L BUN 57 H (9-20) mg/dL Creatinine 1.93 H (0.66-1.25) mg/dL Estimated GFR 34 L (>60) mL/min BUN/Creatinine Ratio 29.5 H (6-22) Glucose 112 H (80-110) mg/dL Lactate 1.8 (0.7-2.1) mmol/L Calcium 9.0 (8.4-10.2) mg/dL Magnesium 2.0 (1.6-2.3) mg/dL Total Bilirubin 0.6 (0.2-1.3) mg/dL AST 38 (17-59) IU/L ALT 23 (<50) IU/L Alkaline Phosphatase 114 (38-126) U/L Total Creatine Kinase 55 (55-170) U/L Troponin I 0.043 H (0.01-0.034) ng/mL NT-Pro-B Natriuret Pep 3260 H (<450) pg/mL Total Protein 5.5 L (6.3-8.2) g/dL Albumin 3.0 L (3.5-5.0) g/dL Globulin 2.5 (1.7-4.1) g/dL Albumin/Globulin Ratio 1.2 (1.0-2.8) Lipase 57 (23-300) U/L Procalcitonin 1.05 H (<0.5) ng/mL TSH 0.934 (0.47-4.68) uIU/mL Ur Bilirubin Confirm Negative (Negative) Chlamy pneumoniae PCR Not detected (Not Detect) Adenovirus (PCR) Not detected (Not Detect) B.parapertussis DNA PCR Not detected (Not Detecte) Coronavirus OC43 (PCR) Not detected (Not Detect) Coronavirus HKU1 (PCR) Not detected (Not Detect) Coronavirus 229E (PCR) Not detected (Not Detect) SARS-CoV-2 (PCR) Not detected (Not Detecte) Coronavirus NL63 (PCR) Not detected (Not Detect) Human Metapneumovir PCR Not detected (Not Detect) Influenza Type A (PCR) Not detected (Not Detect) Influenza Type B (PCR) Not detected (Not Detect) M. pneumoniae (PCR) Not detected (Not Detect) Parainfluenza 1 (PCR) Not detected (Not Detect) Parainfluenza 2 (PCR) Not detected (Not Detect) Parainfluenza 3 (PCR) Not detected (Not Detect) Parainfluenza 4 (PCR) Not detected (Not Detect) RSV (PCR) Not detected (Not Detect) Entero/Rhino (PCR) Not detected (Not Detect) 03/05/24 Range/Units 12:27 WBC (4.5-11.0) X10^3/uL RBC (4.5-5.9) X10^6/uL Hgb (13.5-17.5) g/dL Hct (41-53) % MCV (80-100) fL MCH (26-34) PG MCHC (30-36) % RDW (11.6-14.8) % Plt Count (150-400) X10^3/uL Neut % (Auto) (50-75) % Lymph % (Auto) (25-40) % [place] % (Auto) (3-14) % Eos % (Auto) (2-4) % Baso % (Auto) (0-2) % Neut # (Auto) (9896-8375) /uL Lymph # (Auto) (1435-4573) /uL [place] # (Auto) (0-900) /uL Eos # (Auto) (0-450) /uL Baso # (Auto) (0-100) /uL Sodium (137-145) mmol/L Potassium (3.4-5.1) mmol/L Chloride (98-107) mmol/L Carbon Dioxide (22-32) mmol/L BUN (9-20) mg/dL Creatinine (0.66-1.25) mg/dL Estimated GFR (>60) mL/min BUN/Creatinine Ratio (6-22) Glucose (80-110) mg/dL Lactate (0.7-2.1) mmol/L Calcium (8.4-10.2) mg/dL Magnesium (1.6-2.3) mg/dL Total Bilirubin (0.2-1.3) mg/dL AST (17-59) IU/L ALT (<50) IU/L Alkaline Phosphatase (38-126) U/L Total Creatine Kinase 48 L (55-170) U/L Troponin I 0.041 H (0.01-0.034) ng/mL NT-Pro-B Natriuret Pep (<450) pg/mL Total Protein (6.3-8.2) g/dL Albumin (3.5-5.0) g/dL Globulin (1.7-4.1) g/dL Albumin/Globulin Ratio (1.0-2.8) Lipase (23-300) U/L Procalcitonin (<0.5) ng/mL TSH (0.47-4.68) uIU/mL Ur Bilirubin Confirm (Negative) Chlamy pneumoniae PCR (Not Detect) Adenovirus (PCR) (Not Detect) B.parapertussis DNA PCR (Not Detecte) Coronavirus OC43 (PCR) (Not Detect) Coronavirus HKU1 (PCR) (Not Detect) Coronavirus 229E (PCR) (Not Detect) SARS-CoV-2 (PCR) (Not Detecte) Coronavirus NL63 (PCR) (Not Detect) Human Metapneumovir PCR (Not Detect) Influenza Type A (PCR) (Not Detect) Influenza Type B (PCR) (Not Detect) M. pneumoniae (PCR) (Not Detect) Parainfluenza 1 (PCR) (Not Detect) Parainfluenza 2 (PCR) (Not Detect) Parainfluenza 3 (PCR) (Not Detect) Parainfluenza 4 (PCR) (Not Detect) RSV (PCR) (Not Detect) Entero/Rhino (PCR) (Not Detect) Urine Dip Bedside Urine Glucose Negative Bedside Urine Bilirubin + 1 Bedside Urine Ketone - Negative Urine Specific [place] 1.020 Bedside Urine Occult Blood - Negative Bedside Urine pH 5.0 Bedside Urine Protein - Negative Bedside Urine Urobilinogen - Negative Bedside Urine Nitrite - Negative Bedside Urine Leukocytes - Negative Esterase Point of care testing: Urine Dip Bedside Urine Glucose Negative Bedside Urine Bilirubin + 1 Bedside Urine Ketone - Negative Urine Specific [place] 1.020 Bedside Urine Occult Blood - Negative Bedside Urine pH 5.0 Bedside Urine Protein - Negative Bedside Urine Urobilinogen - Negative Bedside Urine Nitrite - Negative Bedside Urine Leukocytes - Negative Esterase Imaging Data Chest x-ray: Radiologist's Impression: PROCEDURE: XR CHEST 1V INDICATIONS: eval for PNA or edema TECHNIQUE: One view of the chest was acquired. COMPARISON: [facility], , XR CHEST 1V, 12/10/2023, 12:38. FINDINGS: Surgical changes and devices: Sternotomy hardware. Lungs and pleura: Patchy opacities are present within the left hemithorax. Mediastinum: Mediastinal contours appear normal. Heart size is enlarged. Bones and chest wall: No suspicious bony lesions. Overlying soft tissues appear unremarkable. IMPRESSION: Cardiomegaly with patchy opacities in the left lung suspicious for pneumonia. Underlying areas of edema/atelectasis cannot be excluded ECG Data Attestation: I personally reviewed and interpreted this ECG as follows: Interpretation: Sinus rhythm Ventricular rate 95 Left axis deviation Right bundle-branch block LVH No ST T wave changes MDM Narrative Medical decision making narrative: Patient does have leukocytosis, pneumonia noted on the chest x-ray, elevated procalcitonin. Patient ambulated around the emergency department with a walker this is baseline for him. Was not hypoxic. Tolerating oral intake. He was given 1st dose of antibiotics here in the ER and a prescription was sent to the pharmacy of his choice. Will try outpatient treatment of oral antibiotics however given his lung transplant history and that he was on antirejection medications he was informed that if his symptoms worsen or he develops new symptoms that he does need to return to the emergency department for further evaluation. Patient expressed understanding and agreement with plan. Discharge Plan Departure Patient Disposition: Home Clinical Impression: Pneumonia Instructions: DI for Pneumonia -- Adult Activity Restrictions/Additional Instructions: Continue to take all of your medications as directed. Be sure that you were increasing your fluid intake. Contact your primary doctor for follow-up. Return to the emergency department for new or worsening symptoms. Prescriptions: New azithromycin 250 mg tablet 250 mg PO DAILY 4 Days Qty: 4 0RF Rx Instructions: start on day 2 of therapy No Action Epogen 20,000 unit/2 mL solution See Rx Instructions .ROUTE .COMPLEX Rx Instructions: Pt states receives injection every other week on Wednesdays. valganciclovir 450 mg tablet 450 mg PO .three times weekly Qty: 39 4RF Rx Instructions: // Januvia 50 mg tablet 50 mg PO DAILY Qty: 90 3RF levothyroxine [Synthroid] 175 mcg tablet 175 mcg PO 0600 Qty: 90 3RF bumetanide 1 mg tablet 1 mg PO DAILY PRN (Reason: leg swelling/weight gain) Rx Instructions: DO NOT TAKE IF AT BASELINE WEIGHT gabapentin 100 mg capsule 200 mg PO Q8H PRN (Reason: for pain) Qty: 540 3RF tamsulosin 0.4 mg capsule 0.4 mg PO DAILY sulfamethoxazole-trimethoprim 800-160 mg tablet See Rx Instructions .ROUTE .COMPLEX Rx Instructions: 1/2 tab sunday, sunday, sunday ferrous sulfate [FeroSul] 325 mg (65 mg iron) tablet 325 mg PO 3XW Rx Instructions: // azithromycin 500 mg tablet 500 mg PO 3XW prednisone 5 mg tablet 5 mg PO DAILY Patient Comments: TAKE 1 TABLET BY MOUTH EVERY DAY tacrolimus 1 mg capsule 1 mg PO QAM Patient Comments: TAKE 1 CAPSULE BY MOUTH EVERY DAY IN THE MORNING itraconazole 100 mg capsule 100 mg PO BID diclofenac sodium 1 % Gel 2 g topical QID Qty: 100 0RF ascorbic acid (vitamin C) 500 mg capsule 500 mg PO DAILY carvedilol 3.125 mg tablet 3.125 mg PO BID Rx Instructions: must administer with a meal/food sod phos di, mono-K phos mono 250 mg tablet 1 tab PO DAILY omeprazole 20 mg capsule,delayed release(DR/EC) 20 mg PO DAILY Referrals: Shy Angel DO [Primary Care Provider] - Stand Alone Forms: Patient Portal/API
--- NOTE | 2024-03-05 10:27 | EKG_ITS ---
[address] [address] Test Date: 2024-03-05 Pat Name: Darryl Jacobs Department: Room: Gender: Male Rehabilitation Technician: DANIELJONAH : 1940 Requested By: Order Number: [id number] Reading MD: Brad Marquez Measurements Intervals [place] Rate: 95 P: 39 [place]: 200 QRS: -46 QRSD: 140 T: -6 QT: 384 QTc: 482 Interpretive Statements Normal sinus rhythm Right bundle branch block Left anterior fascicular block Bifascicular block Minimal voltage criteria for LVH, may be normal variant ( R in aVL ) Electronically Signed On 03-05-2024 15:05:30 PDT by Brad Marquez
--- NOTE | 2024-03-05 10:28 | DI.RAD.S_ITS ---
PROCEDURE: XR CHEST 1V INDICATIONS: eval for PNA or edema TECHNIQUE: One view of the chest was acquired. COMPARISON: [facility], CR, XR CHEST 1V, 12/10/2023, 12:38. FINDINGS: Surgical changes and devices: Sternotomy hardware. Lungs and pleura: Patchy opacities are present within the left hemithorax. Mediastinum: Mediastinal contours appear normal. Heart size is enlarged. Bones and chest wall: No suspicious bony lesions. Overlying soft tissues appear unremarkable. IMPRESSION: Cardiomegaly with patchy opacities in the left lung suspicious for pneumonia. Underlying areas of edema/atelectasis cannot be excluded. Dictated by: Amira Kovacs M.D. on 03/05/2024 at 10:58 Approved by: Amira Kovacs M.D. on 03/05/2024 at 10:58
[2024-03-05 10:30] LABS: Add Manual Diff / Slide Review NO; Basophils Absolute Auto 100 /uL (0-100); Basophils Percent Auto 0.5 % (0-2); Eosinophils Absolute Auto 100 /uL (0-450); Eosinophils Percent Auto 0.3 % (2-4); Hematocrit 35.3 % (41-53); Hemoglobin 11.5 g/dL (13.5-17.5); Lymphocytes Absolute Auto 1400 /uL (1100-4500); Lymphocytes Percent Auto 8.9 % (25-40); Mean Corpuscular HGB Conc 32.5 % (30-36); Mean Corpuscular Hemoglobin 33.7 PG (26-34); Mean Corpuscular Volume 103.7 fL (80-100); Monocytes Absolute Auto 700 /uL (0-900); Monocytes Percent Auto 4.3 % (3-14); Neutrophils Absolute Auto 13800 /uL (1500-7000); Platelet Count 125 X10^3/uL (150-400); Red Blood Cell Count 3.41 X10^6/uL (4.5-5.9); Red Cell Distribution Width 17.4 % (11.6-14.8)
[2024-03-05 10:58] LABS: Lactate (Lactic Acid) 1.8 mmol/L (0.7-2.1)
[2024-03-05 10:59] LABS: Alanine Aminotransferase 23 IU/L (<50); Albumin Globulin Ratio 1.2 (1.0-2.8); Alkaline Phosphatase 114 U/L (38-126); Aspartate Aminotransferase 38 IU/L (17-59); BUN Creatinine Ratio 29.5 (6-22); Bilirubin Total 0.6 mg/dL (0.2-1.3); Blood Urea Nitrogen 57 mg/dL (9-20); Carbon Dioxide 20 mmol/L (22-32); Chloride 110 mmol/L (98-107); Creatine Kinase 55 U/L (55-170); Estimated Glomerular Filt Rate 34 mL/min (>60); Globulin 2.5 g/dL (1.7-4.1); Glucose 112 mg/dL (80-110); HEMOLYSIS 30 (0-50); Lipase 57 U/L (23-300); Potassium 4.7 mmol/L (3.4-5.1); Sodium 135 mmol/L (137-145); Total Protein 5.5 g/dL (6.3-8.2)
[2024-03-05 11:11] LABS: NT-proBNP (BNP-Adult 18+) 3260 pg/mL (<450); Troponin I 0.043 ng/mL (0.01-0.034)
[2024-03-05 11:16] LABS: Procalcitonin 1.05 ng/mL (<0.5)
[2024-03-05 11:20] LABS: Adenovirus Not Detected (Not Detect); B. parapertussis Not Detected (Not Detecte); Bordetella pertussis Not Detected (Not Detect); Chlamydophila pneumoniae Not Detected (Not Detect); Coronavirus 229E Not Detected (Not Detect); Coronavirus HKU1 Not Detected (Not Detect); Coronavirus NL 63 Not Detected (Not Detect); Coronavirus OC43 Not Detected (Not Detect); Human Metapneumovirus Not Detected (Not Detect); Human Rhinovirus/Enterovirus Not Detected (Not Detect); Influenza A Not Detected (Not Detect); Influenza B Not Detected (Not Detect); Mycoplasma pneumoniae Not Detected (Not Detect); Parainfluenza Virus 1 Not Detected (Not Detect); Parainfluenza Virus 2 Not Detected (Not Detect); Parainfluenza Virus 3 Not Detected (Not Detect); Parainfluenza Virus 4 Not Detected (Not Detect); Respiratory Syncytial Virus Not Detected (Not Detect); SARS- CoV-2 Not Detected (Not Detecte)
[2024-03-05 11:30] LABS: Thyroid Stimulating Hormone 0.934 uIU/mL (0.47-4.68)
[2024-03-05 12:59] LABS: Creatine Kinase 48 U/L (55-170)
[2024-03-05 13:10] LABS: Ictotest Urine Negative (Negative)
[2024-03-05 13:11] LABS: Troponin I 0.041 ng/mL (0.01-0.034)
[2024-03-05] MEDS: AZITHROMYCIN 250 MG TABLET 500 MG PO (14:05)
--- NOTE | 2024-03-05 14:35 | PC.NURSE ---
Pt ambulated to bathroom; pt feels sob after ambulating o2 91% while ambulating--89% when returned to room w/ improvements to 94% w/ rest.
--- NOTE | 2024-03-05 15:35 | PC.NURSE ---
generalized weakness; worse on exertion. sob on exertion. denies sob at rest. crackles on left side anteriorly. gcs 15. respirations regular and unlabored; varying reesting o2 rates (92% to 99%).
--- NOTE | 2024-03-05 15:37 | PC.NURSE ---
Reassess; not much change. Pt able to maintain good sats on RA. pt able to ambulate to bathroom w/ walker
== END 2024-03-05 15:15 | disposition home or self-care (01) ==
PROVIDERS: Emergency Provider Emergency Medicine; Family Provider Family Medicine; PCP Family Medicine
DX: J18.9 Pneumonia, unspecified organism (principal); I44.7 Left bundle-branch block, unspecified; Z94.2 Lung transplant status; Z87.891 Personal history of nicotine dependence
CPT/HCPCS: 36415; 51798; 71045; 80053; 81003; 82550; 83605; 83690; 83735; 83880; 84145; 84443; 84484; 85025; 87633; 93005; 99284

== ENCOUNTER → 2024-03-12 09:28 | Outpatient (CLI) | payer MEDICARE, SELFPAY ==
[2023-12-10 16:27] VITALS: BMI 27.9
[2024-03-12 09:36] VITALS: BP 137/73; PULSE 77; RESP 16; TEMP 36.4; O2SAT 99
[2024-03-12] MEDS: EPOETIN ALFA-EPBX 20,000 UNIT/2 ML VIAL 20000 UNIT SUBCUT (10:18)
== END ==
LOC: ONC 09:29
PROVIDERS: Family Provider Family Medicine; PCP Family Medicine; Referring Provider Internal Medicine Nephrology; Visit Provider Internal Medicine Nephrology
DX: N18.32 Chronic kidney disease, stage 3b (principal); D63.1 Anemia in chronic kidney disease
CPT/HCPCS: 96372; Q5106

== ENCOUNTER → 2024-03-26 09:26 | Outpatient (CLI) | payer MEDICARE, SELFPAY ==
[2023-12-10 16:27] VITALS: BMI 27.9
[2024-03-26 09:58] VITALS: BP 153/81; PULSE 85; RESP 16; TEMP 36.3; O2SAT 99
[2024-03-26 10:15] LABS: Hemoglobin A1C% w Est Avg Glu 7.2 % (4.0-6.0)
[2024-03-26 10:19] LABS: BUN Creatinine Ratio 34.5 (6-22); Blood Urea Nitrogen 69 mg/dL (9-20); Calcium 8.2 mg/dL (8.4-10.2); Carbon Dioxide 17 mmol/L (22-32); Chloride 108 mmol/L (98-107); Estimated Glomerular Filt Rate 32 mL/min (>60); Glucose 311 mg/dL (80-110); HEMOLYSIS < 15 (0-50); Potassium 5.3 mmol/L (3.4-5.1); Sodium 134 mmol/L (137-145)
--- NOTE | 2024-03-26 11:43 | PC.NURSE ---
HEMOGLOBIN 11.7 SHAUNNA Hsu at [facility] notified of lab value (hemoglobin 11.7). Per MD orders, hold dose of retacrit today and recheck labs next week. Refer to MD orders in scanning. Pt notified and voiced understanding.
== END ==
PROVIDERS: Family Provider Family Medicine; PCP Family Medicine; Referring Provider Internal Medicine Nephrology; Visit Provider Internal Medicine Nephrology
DX: E11.9 Type 2 diabetes mellitus without complications (principal); N18.32 Chronic kidney disease, stage 3b; D63.1 Anemia in chronic kidney disease
CPT/HCPCS: 36415; 80048; 83036; 85014; 85018

== ENCOUNTER → 2024-04-09 09:26 | Outpatient (CLI) | payer MEDICARE, SELFPAY ==
[2023-12-10 16:27] VITALS: BMI 27.9
[2024-04-09 09:53] VITALS: BP 122/65; PULSE 78; RESP 18; TEMP 37.1; O2SAT 98
[2024-04-09] MEDS: EPOETIN ALFA-EPBX 20,000 UNIT/2 ML VIAL 20000 UNIT SUBCUT (10:40)
== END ==
PROVIDERS: Family Provider Family Medicine; PCP Family Medicine; Referring Provider Internal Medicine Nephrology; Visit Provider Internal Medicine Nephrology
DX: N18.32 Chronic kidney disease, stage 3b (principal); D63.1 Anemia in chronic kidney disease
CPT/HCPCS: 36415; 85014; 85018; 96372; Q5106

== ENCOUNTER → 2024-04-23 09:25 | Outpatient (CLI) | payer MEDICARE, SELFPAY ==
[2023-12-10 16:27] VITALS: BMI 27.9
[2024-03-26 10:03] LABS: Hematocrit 36.1 % (41-53); Hemoglobin 11.7 g/dL (13.5-17.5)
[2024-04-09 09:51] LABS: Hematocrit 34.3 % (41-53); Hemoglobin 11.2 g/dL (13.5-17.5)
[2024-04-23 09:53] LABS: Hematocrit 33.4 % (41-53); Hemoglobin 11.1 g/dL (13.5-17.5)
[2024-04-23 10:00] VITALS: BP 110/60; PULSE 80; RESP 16; TEMP 37.1; O2SAT 96
[2024-04-23 10:06] LABS: BUN Creatinine Ratio 30.3 (6-22); Blood Urea Nitrogen 73 mg/dL (9-20); Calcium 8.2 mg/dL (8.4-10.2); Carbon Dioxide 22 mmol/L (22-32); Chloride 103 mmol/L (98-107); Estimated Glomerular Filt Rate 26 mL/min (>60); Glucose 151 mg/dL (80-110); HEMOLYSIS < 15 (0-50); Potassium 3.7 mmol/L (3.4-5.1); Sodium 132 mmol/L (137-145)
[2024-04-23] MEDS: EPOETIN ALFA-EPBX 20,000 UNIT/ML VIAL 20000 UNIT SUBCUT (10:25)
[2024-04-23 11:04] LABS: Add Manual Diff / Slide Review NO; Basophils Absolute Auto 100 /uL (0-100); Basophils Percent Auto 0.7 % (0-2); Eosinophils Absolute Auto 100 /uL (0-450); Hematocrit 32.9 % (41-53); Hemoglobin 10.9 g/dL (13.5-17.5); Lymphocytes Absolute Auto 2400 /uL (1100-4500); Lymphocytes Percent Auto 26.8 % (25-40); Mean Corpuscular Hemoglobin 32.6 PG (26-34); Mean Corpuscular Volume 98.5 fL (80-100); Monocytes Absolute Auto 1200 /uL (0-900); Neutrophils Absolute Auto 5300 /uL (1500-7000); Neutrophils Percent Auto 58.5 % (50-75); Platelet Count 163 X10^3/uL (150-400); Red Blood Cell Count 3.34 X10^6/uL (4.5-5.9); Red Cell Distribution Width 16.5 % (11.6-14.8)
[2024-04-23 11:15] LABS: Alanine Aminotransferase 19 IU/L (<50); Albumin Globulin Ratio 1.1 (1.0-2.8); Alkaline Phosphatase 113 U/L (38-126); Aspartate Aminotransferase 27 IU/L (17-59); BUN Creatinine Ratio 28.2 (6-22); Bilirubin Total 0.5 mg/dL (0.2-1.3); Blood Urea Nitrogen 70 mg/dL (9-20); Carbon Dioxide 22 mmol/L (22-32); Chloride 102 mmol/L (98-107); Estimated Glomerular Filt Rate 25 mL/min (>60); Globulin 2.8 g/dL (1.7-4.1); Glucose 164 mg/dL (80-110); HEMOLYSIS < 15 (0-50); Phosphorous 3.9 mg/dL (2.3-3.7); Potassium 3.5 mmol/L (3.4-5.1); Sodium 133 mmol/L (137-145); Total Protein 5.8 g/dL (6.3-8.2)
[2024-04-24 07:40] LABS: Tacrolimus 5.3 ng/mL (2.0-20.0)
--- NOTE | 2024-05-15 15:46 | PC.NURSE ---
Labs ordered by Aan Maria Mullins MD/[facility] in [place] faxed to [phone]
== END ==
LOC: ONC 09:26
PROVIDERS: Family Provider Family Medicine; PCP Family Medicine; Referring Provider Internal Medicine Nephrology; Visit Provider Internal Medicine Nephrology
DX: D63.1 Anemia in chronic kidney disease (principal); E83.42 Hypomagnesemia; N18.32 Chronic kidney disease, stage 3b; Z94.2 Lung transplant status
CPT/HCPCS: 80048; 80053; 80197; 83735; 84100; 85014; 85018; 85025; 87497; 96372; Q5106

== ENCOUNTER → 2024-05-06 09:20 | Outpatient (CLI) | payer MEDICARE, SELFPAY ==
[2023-12-10 16:27] VITALS: BMI 27.9
[2024-05-06 09:39] VITALS: BP 119/49; PULSE 38; RESP 16; TEMP 36.7; O2SAT 100
[2024-05-06 09:41] LABS: Hematocrit 34.7 % (41-53); Hemoglobin 11.5 g/dL (13.5-17.5)
[2024-05-06] MEDS: EPOETIN ALFA-EPBX 20,000 UNIT/2 ML VIAL 20000 UNIT SUBCUT (10:14)
[2024-05-08 20:09] LABS: CMV DNA, Quant Real Time PCR Negative (Negative)
== END ==
PROVIDERS: Family Provider Family Medicine; PCP Family Medicine; Referring Provider Internal Medicine Nephrology; Visit Provider Internal Medicine Nephrology
DX: N18.30 Chronic kidney disease, stage 3 unspecified (principal); D63.1 Anemia in chronic kidney disease
CPT/HCPCS: 85014; 85018; 87497; 96372; Q5106

== ENCOUNTER → 2024-05-21 09:17 | Outpatient (CLI) | payer MEDICARE, SELFPAY ==
[2023-12-10 16:27] VITALS: BMI 27.9
[2024-05-21 09:55] VITALS: BP 100/48; PULSE 88; RESP 16; TEMP 36.7; O2SAT 96
[2024-05-21 09:56] LABS: Hematocrit 34.1 % (41-53); Hemoglobin 11.2 g/dL (13.5-17.5)
[2024-05-21 10:21] LABS: BUN Creatinine Ratio 20.9 (6-22); Blood Urea Nitrogen 49 mg/dL (9-20); Calcium 9.2 mg/dL (8.4-10.2); Carbon Dioxide 26 mmol/L (22-32); Chloride 106 mmol/L (98-107); Estimated Glomerular Filt Rate 27 mL/min (>60); Glucose 159 mg/dL (80-110); HEMOLYSIS < 15 (0-50); Iron 120 ug/dL (49-181); Potassium 4.4 mmol/L (3.4-5.1); Sodium 138 mmol/L (137-145)
[2024-05-21] MEDS: EPOETIN ALFA-EPBX 20,000 UNIT/2 ML VIAL 20000 UNIT SUBCUT (10:21)
[2024-05-21 10:56] LABS: Ferritin 151 ng/mL (18-464)
== END ==
LOC: ONC 09:28
PROVIDERS: Family Provider Family Medicine; PCP Family Medicine; Referring Provider Internal Medicine Nephrology; Visit Provider Internal Medicine Nephrology
DX: D63.1 Anemia in chronic kidney disease; N18.32 Chronic kidney disease, stage 3b
CPT/HCPCS: 80048; 82728; 83540; 85014; 85018; 96372; Q5106

== ENCOUNTER → 2024-05-27 11:48 | Outpatient (CLI) | payer MEDICARE, SELFPAY ==
[2023-12-10 16:27] VITALS: BMI 27.9
[2024-05-27 12:28] LABS: Add Manual Diff / Slide Review NO; Basophils Absolute Auto 100 /uL (0-100); Basophils Percent Auto 0.9 % (0-2); Eosinophils Absolute Auto 100 /uL (0-450); Eosinophils Percent Auto 0.8 % (2-4); Hematocrit 35.4 % (41-53); Hemoglobin 11.6 g/dL (13.5-17.5); Lymphocytes Absolute Auto 2400 /uL (1100-4500); Lymphocytes Percent Auto 29.5 % (25-40); Mean Corpuscular HGB Conc 32.8 % (30-36); Mean Corpuscular Volume 100.6 fL (80-100); Monocytes Absolute Auto 800 /uL (0-900); Monocytes Percent Auto 10.3 % (3-14); Neutrophils Absolute Auto 4800 /uL (1500-7000); Neutrophils Percent Auto 58.5 % (50-75); Platelet Count 179 X10^3/uL (150-400); Red Blood Cell Count 3.52 X10^6/uL (4.5-5.9); Red Cell Distribution Width 17.5 % (11.6-14.8); White Blood Cell Count 8.2 X10^3/uL (4.5-11.0)
[2024-05-27 15:20] LABS: Alanine Aminotransferase 18 IU/L (<50); Albumin 3.1 g/dL (3.5-5.0); Albumin Globulin Ratio 1.1 (1.0-2.8); Alkaline Phosphatase 82 U/L (38-126); Aspartate Aminotransferase 26 IU/L (17-59); BUN Creatinine Ratio 16.4 (6-22); Bilirubin Total 0.6 mg/dL (0.2-1.3); Blood Urea Nitrogen 47 mg/dL (9-20); Calcium 9.9 mg/dL (8.4-10.2); Carbon Dioxide 24 mmol/L (22-32); Chloride 104 mmol/L (98-107); Estimated Glomerular Filt Rate 21 mL/min (>60); Globulin 2.7 g/dL (1.7-4.1); Glucose 159 mg/dL (80-110); HEMOLYSIS < 15 (0-50); Lipase 49 U/L (23-300); Potassium 4.6 mmol/L (3.4-5.1); Sodium 135 mmol/L (137-145); Total Protein 5.8 g/dL (6.3-8.2)
== END ==
PROVIDERS: Family Provider Family Medicine; PCP Family Medicine; Referring Provider Family Medicine; Visit Provider Family Medicine
DX: R10.13 Epigastric pain (principal)
CPT/HCPCS: 36415; 80053; 83690; 85025

== ENCOUNTER → 2024-05-31 09:23 | Outpatient (CLI) | payer MEDICARE, SELFPAY ==
[2023-12-10 16:27] VITALS: BMI 27.9
--- NOTE | 2024-05-31 09:24 | DI.CT.S_ITS ---
PROCEDURE: CT ABDOMEN PELVIS WO CON INDICATIONS: epigastric abdominal pain TECHNIQUE: Axial sections were acquired from the lung bases to the pubic symphysis. Coronal and sagittal reformats were performed. For radiation dose reduction, the following was used: automated exposure control, adjustment of mA and/or kV according to patient size. COMPARISON: CT KUB 12/10/2023. FINDINGS: Image quality: Streak metal artifact from spinal fusion hardware limits evaluation of surrounding soft tissue.. Lower Chest: Heart is enlarged. Mild circumferential distal esophagus thickening. URINARY: Right Kidney: No stones or hydronephrosis. Renal atrophy. Simple cysts Right Ureter: No hydroureter. Left Kidney: No stones or hydronephrosis. Renal atrophy. Left Ureter: No hydroureter. Bladder: Normal wall thickness. No stones. ABDOMEN: Liver: No contour-deforming solid mass. Gallbladder: Surgically absent Biliary ducts: No biliary dilation. Pancreas: No ductal dilation. Spleen: Size is within normal limits. Adrenal Glands: No adrenal nodules. Stomach and Bowel: Normal colonic caliber, without significant wall thickening. Sigmoid diverticulosis without acute inflammation. Normal caliber appendix. Peritoneum: No abnormal intraperitoneal fluid. No free air. Ventral Wall: No hernia. Abdominal Nodes: No enlarged retroperitoneal or mesenteric lymph nodes. Vessels: Aorta and inferior vena cava are normal in size. PELVIS: Pelvic Organs: Unremarkable. Pelvic Nodes: Unremarkable. Miscellaneous: Bilateral fat containing inguinal hernias. Bones: Status post L2-L4 spinal fusion. Multilevel degenerative changes without acute vertebral body compression fracture. Chronic L1 compression deformity. IMPRESSION: Mild distal esophageal circumferential wall thickening, nonspecific but can be seen in the setting of esophagitis. Recommend clinical correlation. Colonic diverticulosis without CT evidence of acute diverticulitis. Approved by: Ros Díaz M.D.,Ph.D. on 06/01/2024 at 22:25
== END ==
PROVIDERS: Family Provider Family Medicine; PCP Family Medicine; Referring Provider Family Medicine; Visit Provider Family Medicine
DX: K57.30 Diverticulosis of large intestine without perforation or abscess without bleeding (principal); N28.1 Cyst of kidney, acquired; I51.7 Cardiomegaly; K40.20 Bilateral inguinal hernia, without obstruction or gangrene, not specified as recurrent; R10.13 Epigastric pain; Z90.49 Acquired absence of other specified parts of digestive tract; Z98.1 Arthrodesis status
CPT/HCPCS: 74176

== ENCOUNTER → 2024-06-04 10:41 | Outpatient (CLI) | payer MEDICARE, SELFPAY ==
[2023-12-10 16:27] VITALS: BMI 27.9
[2024-06-04 10:51] VITALS: BP 150/72; PULSE 76; RESP 18; TEMP 36.4; O2SAT 98
[2024-06-04 11:27] LABS: Hematocrit 31.8 % (41-53); Hemoglobin 10.5 g/dL (13.5-17.5)
--- NOTE | 2024-06-04 12:29 | PC.NURSE ---
EPO INJECTION HELD Epo dose held on 05/27/24 due to hemoglobin of 11.6. Per written orders (see scanning) epo dose was held again today as hemoglobin was 10.5. This RN left voicemail for SHAUNNA De at Dr. Cisneros's office to discuss further orders.
== END ==
LOC: ONC 10:41
PROVIDERS: Family Provider Family Medicine; PCP Family Medicine; Referring Provider Internal Medicine Nephrology; Visit Provider Internal Medicine Nephrology
DX: D63.1 Anemia in chronic kidney disease (principal); N18.32 Chronic kidney disease, stage 3b
CPT/HCPCS: 36415; 85014; 85018

== ENCOUNTER → 2024-06-11 14:48 | Outpatient (CLI) | payer MEDICARE, SELFPAY ==
[2023-12-10 16:27] VITALS: BMI 27.9
--- NOTE | 2024-06-11 14:52 | PC.NURSE ---
c/o ritu per patient on telephone call 06/09. This nurse instructed him to call Dr. Baker's office as per physician instruction he should wait two weeks since the hold at hgb 10.5 on 06/04. Today at 1016 per SHAUNNA De for Dr. Baker patient should receive his usual dose of Retacrit based on the lab of last week (i.e. no new labs necessary) due to his increased fatigue.
[2024-06-11 15:05] VITALS: BP 151/68; PULSE 53; RESP 18; TEMP 36.3; O2SAT 99
[2024-06-11] MEDS: EPOETIN ALFA-EPBX 20,000 UNIT/2 ML VIAL 20000 UNIT SUBCUT (15:12)
== END ==
LOC: ONC 14:49
PROVIDERS: Family Provider Family Medicine; PCP Family Medicine; Referring Provider Internal Medicine Nephrology; Visit Provider Internal Medicine Nephrology
DX: N18.32 Chronic kidney disease, stage 3b (principal); D63.1 Anemia in chronic kidney disease
CPT/HCPCS: 96372; Q5106

== ENCOUNTER 2024-06-18 08:15 | Outpatient (RCR) | payer MEDICARE, SELFPAY ==
[2023-12-10 16:27] VITALS: BMI 27.9
--- NOTE | 2024-02-12 17:03 | PT.OIE ---
Addendum entered and electronically signed by Doreen Watkins PT 02/21/24 08:21: PT direct supervision and direction to student PT Johnny Trinidad throughout session Original Note: Current Diagnoses Pain in right knee (02/12/24) Pain in left knee (02/12/24) Low back pain, unspecified (02/12/24) Difficulty in walking, not elsewhere classified (02/12/24) Other abnormalities of gait and mobility (02/12/24) Weakness (02/12/24) Past Medical History (Last Updated 01/17/24 @ 16:41 by Shy Angel DO) Anemia Aortic stenosis Chronic low back pain CKD (chronic kidney disease) stage 3, GFR 30-59 ml/min Coronary artery disease Diabetes Encounter for subsequent annual wellness visit (AWV) in Medicare patient Hearing impaired Hyperlipidemia Hypertension Hypothyroid IPF (idiopathic pulmonary fibrosis) Macrocytosis Tubular adenoma of colon Past Surgical History (Last Reviewed 12/10/23 @ 14:01 by Alejandrina Garcia DO) H/O lung transplant (2009) Hx of bilateral cataract extraction Hx of cholecystectomy Status post lung transplantation Visit Care Team Role Provider Type Shy Angel DO Attending Provider Physician Family Provider Primary Care Provider Referring Provider Specialty: [facility] Address: [address] [place] [address], [address], [facility] Email: [email or web address] Physical Therapy Initial Evaluation PT-OP-A Visit Information Start: 02/11/24 17:55 Freq: Status: Active Protocol: Document 02/12/24 09:06 [facility] (Rec: 02/12/24 09:49 [facility] [id number]) Out-Patient Physical Therapy Visit Information Visit Information Visit Type Initial Evaluation Visit Note 09/12 Visit Start Time 09:08 Visit Number 1 Number of DRY CURE WORKER Visits 0 PT-OP-B Current Condition Start: 02/11/24 17:55 Freq: Status: Active Protocol: Document 02/12/24 09:06 [facility] (Rec: 02/12/24 09:49 [facility] [id number]) Current Condition History of Current Condition Current Complaints back pain History of Current Condition Pt reports he saw ortho yesterday who gave him a shot which has helped. He was told to take it easy.. In December, he fell and was in hospital for a week and went ot [facility] about 3 weeks and reports those beds are awful. He has chronic back pain also and notes arthritis. Pt walks w/4WW and will sit in chair as needed. He also rides his stationary bike. He uses a 4WW in the home. Pain getting worse since December until yesterday. He has had injections in the past and they help for a few months. He has been getting injections for the past year. 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 L one flips out on me and that is how he fell. Uses SPC when leaving the house as walker hard to get into the car. Pt has several low steps w/rail to get into the house. Lives w/. They have a cleaning lady. He has arms on the toilets to get off of them and higher toilet. Grab bar in the shower and chair. Pt reports in the past year, has hd 2 falls d/t LLE giving out. Has a bulky knee brace but its dificult to use. Sleeps well. Side sleepr w/ pillow btwn legs. Around the house uses FWW and uses 4WW outside. Prior Treatments and Tests November 2021 MRI: IMPRESSION: 1. There is a severe subacute L1 compression fracture. Cannot exclude a pathologic fracture. Consider further evaluation with CT. There is mild canal stenosis at T12-L1 secondary to mild posterior bony retropulsion. 2. Patient has underlying short pedicles. 3. 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 4. Multilevel facet arthropathy. 5. Multilevel foraminal narrowing as described above. Treatment Goals Patient/Caregiver Goals Get stronger in back and legs; feel more confident w/walking and feel like he could use the cane more often PT-OP-C Subjective Start: 02/11/24 17:55 Freq: Status: Active Protocol: Document 02/12/24 09:06 [facility] (Rec: 02/12/24 09:49 [facility] [id number]) Patient Questionnaires Oswestry Low Back Index Oswestry Score 25/50;50% OP-PT Pain Assessment Location back Pain Location Details B SI Pain Aggravating Factors Walking Other Pain Aggravating Factors bike, worse throughout day Pain Alleviating Factors Heat,Inactivity,Sitting PT-OP-E Functional Tests Start: 02/11/24 17:55 Freq: Status: Active Protocol: Document 02/12/24 09:06 [facility] (Rec: 02/12/24 09:49 [facility] [id number]) Functional Tests 6 Minute Walk Test Distance 313ft Device Used spc Comments CGA; stopped after 3 min d/t pt needing restroom 30 Second Sit to Stand Test Score 4 Comments w/hands, Bknee pain and back pain; silver chair Tinetti Balance and Gait Assessment Balance Score 12 Gait Score 8 Composite Score 20 PT-OP-G Mobility & Gait Start: 02/11/24 17:55 Freq: Status: Active Protocol: Document 02/12/24 09:06 [facility] (Rec: 02/12/24 09:49 [facility] [id number]) OP Gait Assessment Comments Gait Comments lat leaning w/gait and slow speed and WBOS; use of SPC PT-OP-J Posture/Palpation/Skin Start: 02/11/24 17:55 Freq: Status: Active Protocol: Document 02/12/24 09:06 [facility] (Rec: 02/12/24 09:49 [facility] [id number]) Posture Evaluation Comments Posture Comments L shoulder elevation; WBOS, fwd head, inc kyphosis, R pelvic shear, rot L PT-OP-M Strength Start: 02/11/24 17:55 Freq: Status: Active Protocol: Document 02/12/24 09:06 [facility] (Rec: 02/12/24 09:49 [facility] [id number]) Hip Strength Hip Manual Muscle Testing Right Flexion (L2) 3+ Fair+ External Rotation 4- Good- Internal Rotation 3+ Fair+ Left Flexion (L2) 3+ Fair+ External Rotation 3 Fair Internal Rotation 3 Fair Knee Strength Knee Manual Muscle Testing Right Flexion (S2) 4- Good- Extension (L3) 4+ Good+ Left Flexion (S2) 4- Good- Extension (L3) 4 Good Ankle/Foot Strength Ankle and Foot Manual Muscle Testing Right Dorsiflexion (L4) 4 Good Plantarflexion (S1) 5 Normal Left Dorsiflexion (L4) 4 Good Plantarflexion (S1) 4 Good Comments PF tested seated B PT-OP-T Assessment and Plan Start: 02/11/24 17:55 Freq: Status: Active Protocol: Document 02/12/24 09:06 [facility] (Rec: 02/12/24 10:33 [id number]) Physical Therapy Assessment Rehab Potential Rehabilitation Potential Good Evaluation Complexity Number of Personal Factors/Comorbidities 3 or More Number of Body Systems Impaired 4 or More Clinical Presentation at Evaluation Evolving Impairments Impairments Activity Tolerance,Balance, Coordination,Functional Activities,Functional Mobility ,Gait,Pain,Posture,Strength Other Concerns Fall Risk Yes Age Related Concerns 2 falls over the last year Barriers to Rehabilitation 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, B knee pain and dec tolerance to activty Goals Walking tolerance Tenoner Operator Goal (LTG) Pt will be able to safely ambulate with SPC and report ability to walk home with SPC LTG Duration 04/08/2024 Gait Impairment Gait tolerance Short Term Goal (STG) Pt will be able to complete the 6 min walk achieving 600 ft with SPC only 1 standing rest break to inc activity tolerance STG Duration 03/11/2024 Tenoner Operator Goal (LTG) Pt will be able to complete the 6 min walk achieving 800 ft with SPC taking no standing rest breaks and no inc in pain from baseline LTG Duration 05/06/2024 Balance Impairment Balance Tenoner Operator Goal (LTG) Pt will inc Tinetti balance assessment score from to to increase balance and gait for functional activity tolerance and dec fall risk LTG Duration 05/06/2024 Assessment Summary Assessment Pt is an 83 y/r old male who presents with lower back pain that has been progressivly getting worse over the last few months. He reports that the pain becomes more aggravating as the day progresses and is usually better by the morning. He has been given back injections which seem to be helping. He has also been recieving knee injections for the last 30 years. He reports that the injections usually provide relief for a few months and then has to go get more. Pt has reported 2 falls over the last year and they both occured due to his knee giving out on him spontaneously. He has balance and gait deviations and scored a 20/28 putting him at a moderate risk for falls. Pt had dec confidence with balance activities and needed to stop at the 3 min taty during the 6 min walk to sit down and use the cammode. Pt would benefit from skilled PT services including manual therapy, joint moblizations and balance and gait re-training in order to reach set goals. Physical Therapy Plan Frequency and Duration Frequency of Treatment 2x/Week Duration of treatment (weeks) 12 Plan of Care Start Date 02/12/24 Plan of Care End Date 05/06/24 Therapeutic Interventions Therapeutic Interventions Balance Training,Coordination Training,Gait Training,Home Exercise Program,Joint Mobilizations,Manual Therapy, Neuromuscular Re-education, Orthotic/Prosthetic Management ,Patient/Caregiver Education, Soft Tissue Mobilization, Taping,Therapeutic Activities, Therapeutic Exercises Modalities Biofeedback,Cold Pack/Ice Massage,Electric Stimulation, Hot Packs,Traction- Mechanical Other Referrals/Consults Referrals/Consults Recommended Recommend to follow up with Dr Tomas Ureña, reguarding back injections Next Visit Focus/Plan Next Note Type Treatment Note Next Visit Plan Focus on manual therapy, balance and gait training. Activities involving DL and SL balance exercises, gait tolerance and form and knee mobilizations. Assess lower back to see progress of injections.
--- NOTE | 2024-02-12 17:04 | PT.OPPOC ---
Addendum entered and electronically signed by Doreen Watkins PT 02/21/24 08:21: PT direct supervision and direction to student PT Johnny Trinidad throughout session Original Note: Physical, Occupational & Speech Therapy At [facility] Current Diagnoses Pain in right knee (02/12/24) Pain in left knee (02/12/24) Low back pain, unspecified (02/12/24) Difficulty in walking, not elsewhere classified (02/12/24) Other abnormalities of gait and mobility (02/12/24) Weakness (02/12/24) Visit Care Team Role Provider Type Shy Angel DO Attending Provider Physician Family Provider Primary Care Provider Referring Provider Specialty: Family Practice Address: [address] [place] [address], [address], [employer] Email: [email or web address] Plan Of Care PT-OP-T Assessment and Plan Start: 02/11/24 17:55 Freq: Status: Active Protocol: Document 02/12/24 09:06 [facility] (Rec: 02/12/24 10:33 [facility] [id number]) Physical Therapy Assessment Rehab Potential Rehabilitation Potential Good Evaluation Complexity Number of Personal Factors/Comorbidities 3 or More Number of Body Systems Impaired 4 or More Clinical Presentation at Evaluation Evolving Impairments Impairments Activity Tolerance,Balance, Coordination,Functional Activities,Functional Mobility ,Gait,Pain,Posture,Strength Other Concerns Fall Risk Yes Age Related Concerns 2 falls over the last year Barriers to Rehabilitation 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, B knee pain and dec tolerance to activty Goals Walking tolerance Custodial Goal (LTG) Pt will be able to safely ambulate with SPC and report ability to walk home with SPC LTG Duration 04/08/2024 Gait Impairment Gait tolerance Short Term Goal (STG) Pt will be able to complete the 6 min walk achieving 600 ft with SPC only 1 standing rest break to inc activity tolerance STG Duration 03/11/2024 Costume Draper Goal (LTG) Pt will be able to complete the 6 min walk achieving 800 ft with SPC taking no standing rest breaks and no inc in pain from baseline LTG Duration 05/06/2024 Balance Impairment Balance Custodial Goal (LTG) Pt will inc Tinetti balance assessment score from 20/28 to 24/28 to increase balance and gait for functional activity tolerance and dec fall risk LTG Duration 05/06/2024 Assessment Summary Assessment Pt is an 83 y/r old male who presents with lower back pain that has been progressivly getting worse over the last few months. He reports that the pain becomes more aggravating as the day progresses and is usually better by the morning. He has been given back injections which seem to be helping. He has also been recieving knee injections for the last 30 years. He reports that the injections usually provide relief for a few months and then has to go get more. Pt has reported 2 falls over the last year and they both occured due to his knee giving out on him spontaneously. He has balance and gait deviations and scored a 20/28 putting him at a moderate risk for falls. Pt had dec confidence with balance activities and needed to stop at the 3 min taty during the 6 min walk to sit down and use the cammode. Pt would benefit from skilled PT services including manual therapy, joint moblizations and balance and gait re-training in order to reach set goals. Physical Therapy Plan Frequency and Duration Frequency of Treatment 2x/Week Duration of treatment (weeks) 12 Plan of Care Start Date 02/12/24 Plan of Care End Date 05/06/24 Therapeutic Interventions Therapeutic Interventions Balance Training,Coordination Training,Gait Training,Home Exercise Program,Joint Mobilizations,Manual Therapy, Neuromuscular Re-education, Orthotic/Prosthetic Management ,Patient/Caregiver Education, Soft Tissue Mobilization, Taping,Therapeutic Activities, Therapeutic Exercises Modalities Biofeedback,Cold Pack/Ice Massage,Electric Stimulation, Hot Packs,Traction- Mechanical Other Referrals/Consults Referrals/Consults Recommended Recommend to follow up with Dr Tomas Ureña, reguarding back injections Next Visit Focus/Plan Next Note Type Treatment Note Next Visit Plan Focus on manual therapy, balance and gait training. Activities involving DL and SL balance exercises, gait tolerance and form and knee mobilizations. Assess lower back to see progress of injections. Plan of Care Dates Plan of Care Start Date 02/12/24 Plan of Care End Date 05/06/24 Electronically Signed by: Johnny Trinidad 02/12/24 [id number] If you are in agreement with this Plan of Care, please return a signed and dated copy. I have reviewed this Plan of Care and certify that the skilled therapy services above are required to meet the patient?s needs. Physician Signature Date Printed Name and Credentials Clinical Instructor Signature Printed Name and Credentials
--- NOTE | 2024-02-14 09:02 | PT.OTN ---
Current Diagnoses Pain in right knee (02/14/24) Pain in left knee (02/14/24) Low back pain, unspecified (02/14/24) Difficulty in walking, not elsewhere classified (02/14/24) Other abnormalities of gait and mobility (02/14/24) Weakness (02/14/24) Physical Therapy Treatment Note PT-OP-A Visit Information Start: 02/11/24 17:55 Freq: Status: Active Protocol: Document 02/14/24 08:18 [facility] (Rec: 02/14/24 08:58 [facility] [id number]) Out-Patient Physical Therapy Visit Information Visit Information Visit Type Treatment Note Visit Note 10/13 Visit Start Time 08:20 Visit Stop Time 09:00 Visit Number 2 Number of SOUND DESIGNER Visits 0 PT-OP-B Current Condition Start: 02/11/24 17:55 Freq: Status: Active Protocol: Document 02/12/24 09:06 [facility] (Rec: 02/12/24 09:49 [facility] [id number]) Current Condition History of Current Condition Current Complaints back pain History of Current Condition Pt reports he saw ortho yesterday who gave him a shot which has helped. He was told to take it easy.. In December, he fell and was in hospital for a week and went ot [facility] about 3 weeks and reports those beds are awful. He has chronic back pain also and notes arthritis. Pt walks w/4WW and will sit in chair as needed. He also rides his stationary bike. He uses a 4WW in the home. Pain getting worse since December until yesterday. He has had injections in the past and they help for a few months. He has been getting injections for the past year. 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 L one flips out on me and that is how he fell. Uses SPC when leaving the house as walker hard to get into the car. Pt has several low steps w/rail to get into the house. Lives w/. They have a cleaning lady. He has arms on the toilets to get off of them and higher toilet. Grab bar in the shower and chair. Pt reports in the past year, has hd 2 falls d/t LLE giving out. Has a bulky knee brace but its dificult to use. Sleeps well. Side sleepr w/ pillow btwn legs. Around the house uses FWW and uses 4WW outside. Prior Treatments and Tests November 2021 MRI: IMPRESSION: 1. There is a severe subacute L1 compression fracture. Cannot exclude a pathologic fracture. Consider further evaluation with CT. There is mild canal stenosis at T12-L1 secondary to mild posterior bony retropulsion. 2. Patient has underlying short pedicles. 3. 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 4. Multilevel facet arthropathy. 5. Multilevel foraminal narrowing as described above. Treatment Goals Patient/Caregiver Goals Get stronger in back and legs; feel more confident w/walking and feel like he could use the cane more often PT-OP-C Subjective Start: 02/11/24 17:55 Freq: Status: Active Protocol: Document 02/14/24 08:18 [facility] (Rec: 02/14/24 08:58 [facility] [id number]) OP-PT Subjective Patient Comments Patient Comments Pt reports he has been going to [facility] for PT for back in the past PT-OP-E Functional Tests Start: 02/11/24 17:55 Freq: Status: Active Protocol: Document 02/12/24 09:06 [facility] (Rec: 02/12/24 09:49 [facility] [id number]) Functional Tests 6 Minute Walk Test Distance 313ft Device Used spc Comments CGA; stopped after 3 min d/t pt needing restroom 30 Second Sit to Stand Test Score 4 Comments w/hands, Bknee pain and back pain; silver chair Tinetti Balance and Gait Assessment Balance Score 12 Gait Score 8 Composite Score 20 PT-OP-G Mobility & Gait Start: 02/11/24 17:55 Freq: Status: Active Protocol: Document 02/12/24 09:06 [facility] (Rec: 02/12/24 09:49 [facility] [id number]) OP Gait Assessment Comments Gait Comments lat leaning w/gait and slow speed and WBOS; use of SPC PT-OP-J Posture/Palpation/Skin Start: 02/11/24 17:55 Freq: Status: Active Protocol: Document 02/12/24 09:06 [facility] (Rec: 02/12/24 09:49 [id number] Posture Evaluation Comments Posture Comments L shoulder elevation; WBOS, fwd head, inc kyphosis, R pelvic shear, rot L PT-OP-M Strength Start: 02/11/24 17:55 Freq: Status: Active Protocol: Document 02/12/24 09:06 [facility] (Rec: 02/12/24 09:49 [facility] [id number]) Hip Strength Hip Manual Muscle Testing Right Flexion (L2) 3+ Fair+ External Rotation 4- Good- Internal Rotation 3+ Fair+ Left Flexion (L2) 3+ Fair+ External Rotation 3 Fair Internal Rotation 3 Fair Knee Strength Knee Manual Muscle Testing Right Flexion (S2) 4- Good- Extension (L3) 4+ Good+ Left Flexion (S2) 4- Good- Extension (L3) 4 Good Ankle/Foot Strength Ankle and Foot Manual Muscle Testing Right Dorsiflexion (L4) 4 Good Plantarflexion (S1) 5 Normal Left Dorsiflexion (L4) 4 Good Plantarflexion (S1) 4 Good Comments PF tested seated B PT-OP-Q Treatments Start: 02/11/24 17:55 Freq: Status: Active Protocol: Document 02/14/24 08:18 [facility] (Rec: 02/14/24 08:58 [facility] [id number]) Therapeutic Exercises Supine Exercises SLR Supine Exercise Name w/core engagement Side bilateral Reps/Minutes 10 LTR Side bilateral Reps/Minutes 10 Comments cues core pelvic tilt Reps/Minutes 5 bridges Side bilateral Reps/Minutes 5 sec x10 Comments cues tilt then glute engagement then lift Sitting Exercises DF Side bilateral Equipment Used 1# wt on foot Reps/Minutes 15 ea add Sitting Exercise Name hip Side bilateral Equipment Used yellow ball Reps/Minutes 10sec x12 march Side bilateral Equipment Used Lvl 3 Reps/Minutes 15 hip abd Side bilateral Equipment Used l3 band Reps/Minutes 1 min hold then 10 reps Standing Exercises sit to stand Side bilateral Reps/Minutes 8x Comments w/hands -cues control down march Side bilateral Equipment Used lvl 1 Reps/Minutes 5 Comments stopped d/t knee pain sidesteps Side bilateral Equipment Used lvl 1 Reps/Minutes 12ft x2 hip abd Side bilateral Equipment Used L1 Reps/Minutes 12 ea Neuro Re-Education Treatment Balance Activities foam Details EO/EC trials, head turns horizontal Surface blue foam Reps/Duration 8 min Comments WBOS, NBOS, staggered stance PT-OP-T Assessment and Plan Start: 02/11/24 17:55 Freq: Status: Active Protocol: Document 02/14/24 08:18 [facility] (Rec: 02/14/24 08:58 [facility] [id number]) Physical Therapy Assessment Goals Walking tolerance Caddie Goal (LTG) Pt will be able to safely ambulate with SPC and report ability to walk home with SPC LTG Duration 04/08/2024 Gait Impairment Gait tolerance Short Term Goal (STG) Pt will be able to complete the 6 min walk achieving 600 ft with SPC only 1 standing rest break to inc activity tolerance STG Duration 03/11/2024 Jail Goal (LTG) Pt will be able to complete the 6 min walk achieving 800 ft with SPC taking no standing rest breaks and no inc in pain from baseline LTG Duration 05/06/2024 Balance Impairment Balance Jail Goal (LTG) Pt will inc Tinetti balance assessment score from 2028 to 2428 to increase balance and gait for functional activity tolerance and dec fall risk LTG Duration 05/06/2024 Assessment Summary Assessment Pt noted knees feeling weak by end of session and finished w /seated exercsies d/t this. Pt given HEP of seated and supine exercsies along w/sit to stands to work at for home. Physical Therapy Plan Next Visit Focus/Plan Next Note Type Treatment Note Next Visit Plan Focus on manual therapy (STM to back), balance and gait training. Activities involving DL and SL balance exercises, gait tolerance and form and knee mobilizations. Assess lower back to see progress of injections. review exercises
--- NOTE | 2024-02-18 15:03 | PT.OTN ---
Current Diagnoses Pain in right knee (02/18/24) Pain in left knee (02/18/24) Low back pain, unspecified (02/18/24) Difficulty in walking, not elsewhere classified (02/18/24) Other abnormalities of gait and mobility (02/18/24) Weakness (02/18/24) Physical Therapy Treatment Note PT-OP-A Visit Information Start: 02/11/24 17:55 Freq: Status: Active Protocol: Document 02/18/24 08:09 AB (Rec: 02/18/24 09:01 AB [id number]) Out-Patient Physical Therapy Visit Information Visit Information Visit Type Treatment Note Visit Note 11/10 Visit Start Time 08:18 Visit Stop Time 09:00 Visit Number 3 Number of PHLEBOTOMIST LAB ASSISTANT Visits 1 PT-OP-B Current Condition Start: 02/11/24 17:55 Freq: Status: Active Protocol: Document 02/12/24 09:06 [facility] (Rec: 02/12/24 09:49 [facility] [id number]) Current Condition History of Current Condition Current Complaints back pain History of Current Condition Pt reports he saw ortho yesterday who gave him a shot which has helped. He was told to take it easy.. In December, he fell and was in hospital for a week and went ot [facility] about 3 weeks and reports those beds are awful. He has chronic back pain also and notes arthritis. Pt walks w/4WW and will sit in chair as needed. He also rides his stationary bike. He uses a 4WW in the home. Pain getting worse since December until yesterday. He has had injections in the past and they help for a few months. He has been getting injections for the past year. 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 L one flips out on me and that is how he fell. Uses SPC when leaving the house as walker hard to get into the car. Pt has several low steps w/rail to get into the house. Lives w/. They have a cleaning lady. He has arms on the toilets to get off of them and higher toilet. Grab bar in the shower and chair. Pt reports in the past year, has hd 2 falls d/t LLE giving out. Has a bulky knee brace but its dificult to use. Sleeps well. Side sleepr w/ pillow btwn legs. Around the house uses FWW and uses 4WW outside. Prior Treatments and Tests November 2021 MRI: IMPRESSION: 1. There is a severe subacute L1 compression fracture. Cannot exclude a pathologic fracture. Consider further evaluation with CT. There is mild canal stenosis at T12-L1 secondary to mild posterior bony retropulsion. 2. Patient has underlying short pedicles. 3. 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 4. Multilevel facet arthropathy. 5. Multilevel foraminal narrowing as described above. Treatment Goals Patient/Caregiver Goals Get stronger in back and legs; feel more confident w/walking and feel like he could use the cane more often PT-OP-C Subjective Start: 02/11/24 17:55 Freq: Status: Active Protocol: Document 02/18/24 08:09 AB (Rec: 02/18/24 09:01 [id number]) OP-PT Subjective Patient Comments Patient Comments Patient reports he is more sore today. Patient attributes to Father's day. Patient reports he was working in garage with son. Patient reports his hip is painful from right buttocks to ankle. Patient reports the injections for the back are not working, will see that MD tomorrow. PT-OP-E Functional Tests Start: 02/11/24 17:55 Freq: Status: Active Protocol: Document 02/12/24 09:06 [facility] (Rec: 02/12/24 09:49 [facility] [id number]) Functional Tests 6 Minute Walk Test Distance 313ft Device Used spc Comments CGA; stopped after 3 min d/t pt needing restroom 30 Second Sit to Stand Test Score 4 Comments w/hands, Bknee pain and back pain; silver chair Tinetti Balance and Gait Assessment Balance Score 12 Gait Score 8 Composite Score 20 PT-OP-G Mobility & Gait Start: 02/11/24 17:55 Freq: Status: Active Protocol: Document 02/12/24 09:06 [facility] (Rec: 02/12/24 09:49 [facility] [id number]) OP Gait Assessment Comments Gait Comments lat leaning w/gait and slow speed and WBOS; use of SPC PT-OP-J Posture/Palpation/Skin Start: 06/10/24 17:55 Freq: Status: Active Protocol: Document 02/12/24 09:06 [facility] (Rec: 02/12/24 09:49 [facility] [id number]) Posture Evaluation Comments Posture Comments L shoulder elevation; WBOS, fwd head, inc kyphosis, R pelvic shear, rot L PT-OP-M Strength Start: 02/11/24 17:55 Freq: Status: Active Protocol: Document 02/12/24 09:06 [facility] (Rec: 02/12/24 09:49 [facility] [id number]) Hip Strength Hip Manual Muscle Testing Right Flexion (L2) 3+ Fair+ External Rotation 4- Good- Internal Rotation 3+ Fair+ Left Flexion (L2) 3+ Fair+ External Rotation 3 Fair Internal Rotation 3 Fair Knee Strength Knee Manual Muscle Testing Right Flexion (S2) 4- Good- Extension (L3) 4+ Good+ Left Flexion (S2) 4- Good- Extension (L3) 4 Good Ankle/Foot Strength Ankle and Foot Manual Muscle Testing Right Dorsiflexion (L4) 4 Good Plantarflexion (S1) 5 Normal Left Dorsiflexion (L4) 4 Good Plantarflexion (S1) 4 Good Comments PF tested seated B PT-OP-Q Treatments Start: 02/11/24 17:55 Freq: Status: Active Protocol: Document 02/18/24 08:09 AB (Rec: 02/18/24 09:01 AB [id number]) Therapeutic Exercises Sitting Exercises add Sitting Exercise Name hip Side bilateral Equipment Used yellow and blue balls Reps/Minutes X6 with blue ball X 6 with yellow ball hip abd Side bilateral Equipment Used l3 band Reps/Minutes 1 min hold then 10 reps X2 Standing Exercises sit to stand Side bilateral Reps/Minutes 8x Comments w/hands -cues control down Manual Therapy Treatment Soft Tissue Mobilization LS area Body Location LS paraspinals Mobilization Type Sustained Pressure Intensity/Depth Moderate Body Position Sidelying Neuro Re-Education Treatment Balance Activities retro stepping Details CGA hands above bars Reps/Duration 10 feet X 3 tandem stepping Details hands above bars CGA Surface floor Reps/Duration 10 feet X 3 SLS Details CGA, VC for hands above bars with visual scanning and head turns Reps/Duration 2 min foam Details with head turns, nods and visual scanning Surface blue foam Reps/Duration 5 min Comments WBOS, NBOS, staggered stance PT-OP-T Assessment and Plan Start: 02/11/24 17:55 Freq: Status: Active Protocol: Document 02/18/24 08:09 AB (Rec: 02/18/24 09:01 AB [id number]) Physical Therapy Assessment Goals Walking tolerance Internal Grinder Tender Goal (LTG) Pt will be able to safely ambulate with SPC and report ability to walk home with SPC LTG Duration 04/08/2024 Gait Impairment Gait tolerance Short Term Goal (STG) Pt will be able to complete the 6 min walk achieving 600 ft with SPC only 1 standing rest break to inc activity tolerance STG Duration 03/11/2024 Internal Grinder Tender Goal (LTG) Pt will be able to complete the 6 min walk achieving 800 ft with SPC taking no standing rest breaks and no inc in pain from baseline LTG Duration 05/06/2024 Balance Impairment Balance Internal Grinder Tender Goal (LTG) Pt will inc Tinetti balance assessment score from to to increase balance and gait for functional activity tolerance and dec fall risk LTG Duration 05/06/2024 Physical Therapy Plan Frequency and Duration Frequency of Treatment 2x/Week Duration of treatment (weeks) 12 Plan of Care Start Date 02/12/24 Plan of Care End Date 05/06/24 Therapeutic Interventions Therapeutic Interventions Balance Training,Coordination Training,Gait Training,Home Exercise Program,Joint Mobilizations,Manual Therapy, Neuromuscular Re-education, Orthotic/Prosthetic Management ,Patient/Caregiver Education, Soft Tissue Mobilization, Taping,Therapeutic Activities, Therapeutic Exercises Modalities Biofeedback,Cold Pack/Ice Massage,Electric Stimulation, Hot Packs,Traction- Mechanical Next Visit Focus/Plan Next Note Type Treatment Note Next Visit Plan Focus on manual therapy (STM to back), balance and gait training. Activities involving DL and SL balance exercises, gait tolerance and form and knee mobilizations. Assess lower back to see progress of injections. review exercises
--- NOTE | 2024-02-21 13:03 | PT.OTN ---
Current Diagnoses Pain in right knee (02/21/24) Pain in left knee (02/21/24) Low back pain, unspecified (02/21/24) Difficulty in walking, not elsewhere classified (02/21/24) Other abnormalities of gait and mobility (02/21/24) Weakness (02/21/24) Physical Therapy Treatment Note PT-OP-A Visit Information Start: 02/11/24 17:55 Freq: Status: Active Protocol: Document 02/21/24 08:05 AB (Rec: 02/21/24 10:33 AB [id number]) Out-Patient Physical Therapy Visit Information Visit Information Visit Type Treatment Note Visit Note 12/11 Visit Start Time 08:15 Visit Stop Time 09:00 Visit Number 4 Number of CONTINUOUS DRIER OPERATOR Visits 2 PT-OP-B Current Condition Start: 02/11/24 17:55 Freq: Status: Active Protocol: Document 02/12/24 09:06 [facility] (Rec: 02/12/24 09:49 [facility] [id number]) Current Condition History of Current Condition Current Complaints back pain History of Current Condition Pt reports he saw ortho yesterday who gave him a shot which has helped. He was told to take it easy.. In December, he fell and was in hospital for a week and went ot [facility] about 3 weeks and reports those beds are awful. He has chronic back pain also and notes arthritis. Pt walks w/4WW and will sit in chair as needed. He also rides his stationary bike. He uses a 4WW in the home. Pain getting worse since December until yesterday. He has had injections in the past and they help for a few months. He has been getting injections for the past year. 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 L one flips out on me and that is how he fell. Uses SPC when leaving the house as walker hard to get into the car. Pt has several low steps w/rail to get into the house. Lives w/. They have a cleaning lady. He has arms on the toilets to get off of them and higher toilet. Grab bar in the shower and chair. Pt reports in the past year, has hd 2 falls d/t LLE giving out. Has a bulky knee brace but its dificult to use. Sleeps well. Side sleepr w/ pillow btwn legs. Around the house uses FWW and uses 4WW outside. Prior Treatments and Tests November 2021 MRI: IMPRESSION: 1. There is a severe subacute L1 compression fracture. Cannot exclude a pathologic fracture. Consider further evaluation with CT. There is mild canal stenosis at T12-L1 secondary to mild posterior bony retropulsion. 2. Patient has underlying short pedicles. 3. 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 4. Multilevel facet arthropathy. 5. Multilevel foraminal narrowing as described above. Treatment Goals Patient/Caregiver Goals Get stronger in back and legs; feel more confident w/walking and feel like he could use the cane more often PT-OP-C Subjective Start: 02/11/24 17:55 Freq: Status: Active Protocol: Document 02/21/24 08:05 AB (Rec: 02/21/24 10:33 [id number]) OP-PT Subjective Patient Comments Patient Comments Patient reports the injections only work for 3-4 days. Patient reports back pain is 8 .5/10 radiating down to right ankle. Patient later. comments that the left side is working , referring to the injection but the pain has shifted to the left. PT-OP-E Functional Tests Start: 02/11/24 17:55 Freq: Status: Active Protocol: Document 02/12/24 09:06 [facility] (Rec: 02/12/24 09:49 [facility] [id number]) Functional Tests 6 Minute Walk Test Distance 313ft Device Used spc Comments CGA; stopped after 3 min d/t pt needing restroom 30 Second Sit to Stand Test Score 4 Comments w/hands, Bknee pain and back pain; silver chair Tinetti Balance and Gait Assessment Balance Score 12 Gait Score 8 Composite Score 20 PT-OP-G Mobility & Gait Start: 02/11/24 17:55 Freq: Status: Active Protocol: Document 02/12/24 09:06 [facility] (Rec: 02/12/24 09:49 [facility] [id number]) OP Gait Assessment Comments Gait Comments lat leaning w/gait and slow speed and WBOS; use of SPC PT-OP-J Posture/Palpation/Skin Start: 02/11/24 17:55 Freq: Status: Active Protocol: Document 02/12/24 09:06 [facility] (Rec: 02/12/24 09:49 [facility] [id number]) Posture Evaluation Comments Posture Comments L shoulder elevation; WBOS, fwd head, inc kyphosis, R pelvic shear, rot L PT-OP-M Strength Start: 02/11/24 17:55 Freq: Status: Active Protocol: Document 02/12/24 09:06 [facility] (Rec: 02/12/24 09:49 [facility] [id number]) Hip Strength Hip Manual Muscle Testing Right Flexion (L2) 3+ Fair+ External Rotation 4- Good- Internal Rotation 3+ Fair+ Left Flexion (L2) 3+ Fair+ External Rotation 3 Fair Internal Rotation 3 Fair Knee Strength Knee Manual Muscle Testing Right Flexion (S2) 4- Good- Extension (L3) 4+ Good+ Left Flexion (S2) 4- Good- Extension (L3) 4 Good Ankle/Foot Strength Ankle and Foot Manual Muscle Testing Right Dorsiflexion (L4) 4 Good Plantarflexion (S1) 5 Normal Left Dorsiflexion (L4) 4 Good Plantarflexion (S1) 4 Good Comments PF tested seated B PT-OP-Q Treatments Start: 02/11/24 17:55 Freq: Status: Active Protocol: Document 02/21/24 08:05 AB (Rec: 02/21/24 10:33 AB [id number]) Therapeutic Exercises Sitting Exercises hip IR Sitting Exercise Name AROM Side bilateral Reps/Minutes X10 Comments verbal and tactile cues hip abd Side bilateral Equipment Used l3 band Reps/Minutes 1 min hold then 10 reps X2 Manual Therapy Treatment Soft Tissue Mobilization right piriformis/gluteal area Mobilization Type Cross-Friction,Rolling Intensity/Depth Moderate Body Position Sidelying LS area Body Location LS paraspinals R>left Mobilization Type Sustained Pressure Intensity/Depth Moderate Joint Mobilizations bilateral knees Joint right and left knee Direction PA Grade III Body Position Hooklying Reps/Duration 3X10 Comments monitored for pain Manual Techniques Figure 4 and piriformis stretch manually Body Location right hip Body Position Hooklying Comments Patient unable to perform without physical assist. MET for right AI left PI Type and pubic shot gun, modified AI PI MET to seated Reps/Duration 6 X 6 seconds each Comments unable to perform AI PI MET hooklying Neuro Re-Education Treatment Balance Activities blue cushion Details marching and retro stepping Details CGA hands above bars Reps/Duration 10 feet X 3 tandem stepping Details hands above bars CGA Surface floor Reps/Duration 10 feet X 6 SLS Details CGA, VC for hands above bars with visual scanning and head turns Reps/Duration 2 min PT-OP-T Assessment and Plan Start: 02/11/24 17:55 Freq: Status: Active Protocol: Document 02/21/24 08:05 AB (Rec: 02/21/24 10:33 AB [id number]) Physical Therapy Assessment Goals Walking tolerance Director [employer] Strategic Partnerships Goal (LTG) Pt will be able to safely ambulate with SPC and report ability to walk home with SPC LTG Duration 04/08/2024 Gait Impairment Gait tolerance Short Term Goal (STG) Pt will be able to complete the 6 min walk achieving 600 ft with SPC only 1 standing rest break to inc activity tolerance Director [employer] Goal (LTG) Pt will be able to complete the 6 min walk achieving 800 ft with SPC taking no standing rest breaks and no inc in pain from baseline LTG Duration 05/06/2024 Balance Impairment Balance Care Home Goal (LTG) Pt will inc Tinetti balance assessment score from to to increase balance and gait for functional activity tolerance and dec fall risk LTG Duration 05/06/2024 Assessment Summary Assessment Patient reports back pain is 5 /10 end of session and pain is no longer radiating down right LE. Physical Therapy Plan Frequency and Duration Frequency of Treatment 2x/Week Duration of treatment (weeks) 12 Plan of Care Start Date 02/12/24 Plan of Care End Date 05/06/24 Next Visit Focus/Plan Next Note Type Treatment Note Next Visit Plan Focus on manual therapy (STM to back), balance and gait training. Activities involving DL and SL balance exercises, gait tolerance and form and knee mobilizations. Assess lower back to see progress of injections. review exercises
--- NOTE | 2024-02-25 09:00 | PT.OTN ---
Current Diagnoses Pain in right knee (02/25/24) Pain in left knee (02/25/24) Low back pain, unspecified (02/25/24) Difficulty in walking, not elsewhere classified (02/25/24) Other abnormalities of gait and mobility (02/25/24) Weakness (02/25/24) Physical Therapy Treatment Note PT-OP-A Visit Information Start: 02/11/24 17:55 Freq: Status: Active Protocol: Document 02/25/24 08:17 [facility] (Rec: 02/25/24 09:00 [facility] [id number]) Out-Patient Physical Therapy Visit Information Visit Information Visit Type Treatment Note Visit Note 01/10 Visit Start Time 08:19 Visit Stop Time 08:59 Visit Number 5 Number of TUBER HELPER Visits 0 PT-OP-B Current Condition Start: 02/11/24 17:55 Freq: Status: Active Protocol: Document 02/12/24 09:06 [facility] (Rec: 02/12/24 09:49 [facility] [id number]) Current Condition History of Current Condition Current Complaints back pain History of Current Condition Pt reports he saw ortho yesterday who gave him a shot which has helped. He was told to take it easy.. In December, he fell and was in hospital for a week and went ot [facility] about 3 weeks and reports those beds are awful. He has chronic back pain also and notes arthritis. Pt walks w/4WW and will sit in chair as needed. He also rides his stationary bike. He uses a 4WW in the home. Pain getting worse since December until yesterday. He has had injections in the past and they help for a few months. He has been getting injections for the past year. 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 L one flips out on me and that is how he fell. Uses SPC when leaving the house as walker hard to get into the car. Pt has several low steps w/rail to get into the house. Lives w/. They have a cleaning lady. He has arms on the toilets to get off of them and higher toilet. Grab bar in the shower and chair. Pt reports in the past year, has hd 2 falls d/t LLE giving out. Has a bulky knee brace but its dificult to use. Sleeps well. Side sleepr w/ pillow btwn legs. Around the house uses FWW and uses 4WW outside. Prior Treatments and Tests November 2021 MRI: IMPRESSION: 1. There is a severe subacute L1 compression fracture. Cannot exclude a pathologic fracture. Consider further evaluation with CT. There is mild canal stenosis at T12-L1 secondary to mild posterior bony retropulsion. 2. Patient has underlying short pedicles. 3. 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 4. Multilevel facet arthropathy. 5. Multilevel foraminal narrowing as described above. Treatment Goals Patient/Caregiver Goals Get stronger in back and legs; feel more confident w/walking and feel like he could use the cane more often PT-OP-C Subjective Start: 02/11/24 17:55 Freq: Status: Active Protocol: Document 02/25/24 08:17 [facility] (Rec: 02/25/24 09:00 [facility] [id number]) OP-PT Subjective Patient Comments Patient Comments pt reports pain in R hip down to ankle PT-OP-E Functional Tests Start: 02/11/24 17:55 Freq: Status: Active Protocol: Document 02/12/24 09:06 [facility] (Rec: 02/12/24 09:49 [facility] [id number]) Functional Tests 6 Minute Walk Test Distance 313ft Device Used spc Comments CGA; stopped after 3 min d/t pt needing restroom 30 Second Sit to Stand Test Score 4 Comments w/hands, Bknee pain and back pain; silver chair Tinetti Balance and Gait Assessment Balance Score 12 Gait Score 8 Composite Score 20 PT-OP-G Mobility & Gait Start: 02/11/24 17:55 Freq: Status: Active Protocol: Document 02/12/24 09:06 [facility] (Rec: 02/12/24 09:49 [facility] [id number]) OP Gait Assessment Comments Gait Comments lat leaning w/gait and slow speed and WBOS; use of SPC PT-OP-J Posture/Palpation/Skin Start: 02/11/24 17:55 Freq: Status: Active Protocol: Document 02/12/24 09:06 [facility] (Rec: 02/12/24 09:49 [facility] [id number]) Posture Evaluation Comments Posture Comments L shoulder elevation; WBOS, fwd head, inc kyphosis, R pelvic shear, rot L PT-OP-M Strength Start: 02/11/24 17:55 Freq: Status: Active Protocol: Document 02/12/24 09:06 [facility] (Rec: 02/12/24 09:49 [facility] [id number]) Hip Strength Hip Manual Muscle Testing Right Flexion (L2) 3+ Fair+ External Rotation 4- Good- Internal Rotation 3+ Fair+ Left Flexion (L2) 3+ Fair+ External Rotation 3 Fair Internal Rotation 3 Fair Knee Strength Knee Manual Muscle Testing Right Flexion (S2) 4- Good- Extension (L3) 4+ Good+ Left Flexion (S2) 4- Good- Extension (L3) 4 Good Ankle/Foot Strength Ankle and Foot Manual Muscle Testing Right Dorsiflexion (L4) 4 Good Plantarflexion (S1) 5 Normal Left Dorsiflexion (L4) 4 Good Plantarflexion (S1) 4 Good Comments PF tested seated B PT-OP-Q Treatments Start: 02/11/24 17:55 Freq: Status: Active Protocol: Document 02/25/24 08:17 [facility] (Rec: 02/25/24 09:00 [facility] [id number]) Therapeutic Exercises Supine Exercises SLR Supine Exercise Name w/core engagement Side bilateral Reps/Minutes 10 R; 5 L LTR Side bilateral Reps/Minutes 10 Comments cues core bridges Side bilateral Reps/Minutes 8 Comments cues tilt then glute engagement then lift Standing Exercises sit to stand Side bilateral Reps/Minutes 8x Comments w/hands -cues control down sidesteps Side bilateral Equipment Used lvl 1 Reps/Minutes 15ft x2 ea Manual Therapy Treatment Soft Tissue Mobilization right piriformis/gluteal area Mobilization Type Rolling,Sustained Pressure Intensity/Depth Moderate Body Position Sidelying LS area Body Location LS paraspinals R>left & QL & multifidi along sacrum Mobilization Type Sustained Pressure Intensity/Depth Moderate Neuro Re-Education Treatment Balance Activities tandem stepping Comments 1.fwd walk-hand prn 2x15ft 2. stance B trials foam Details horizontal head turns & EC Surface blue foam Comments WBOS, NBOS, staggered stance Self-Care/Home Management Treatment Activities Self-Care/Home Management Activities 148/80 PT-OP-T Assessment and Plan Start: 02/11/24 17:55 Freq: Status: Active Protocol: Document 02/25/24 08:17 [facility] (Rec: 02/25/24 09:00 [facility] [id number]) Physical Therapy Assessment Goals Walking tolerance Residential Goal (LTG) Pt will be able to safely ambulate with SPC and report ability to walk home with SPC LTG Duration 04/08/2024 Gait Impairment Gait tolerance Short Term Goal (STG) Pt will be able to complete the 6 min walk achieving 600 ft with SPC only 1 standing rest break to inc activity tolerance Residential Goal (LTG) Pt will be able to complete the 6 min walk achieving 800 ft with SPC taking no standing rest breaks and no inc in pain from baseline LTG Duration 05/06/2024 Balance Impairment Balance Residential Goal (LTG) Pt will inc Tinetti balance assessment score from to to increase balance and gait for functional activity tolerance and dec fall risk LTG Duration 05/06/2024 Assessment Summary Assessment Pt did well iwth exercises today and showed improvement with ability to balance. He did well with strengthening except SLR on L caused pain in R buttocks so stopped Physical Therapy Plan Frequency and Duration Frequency of Treatment 2x/Week Duration of treatment (weeks) 12 Plan of Care Start Date 02/12/24 Plan of Care End Date 05/06/24 Next Visit Focus/Plan Next Note Type Treatment Note Next Visit Plan cont to advance core and hip strength exercises and balance activities; review HEP as needed; manual to help knee and back/leg pain
--- NOTE | 2024-02-28 09:06 | PT.OTN ---
Current Diagnoses Pain in right knee (02/28/24) Pain in left knee (02/28/24) Low back pain, unspecified (02/28/24) Difficulty in walking, not elsewhere classified (02/28/24) Other abnormalities of gait and mobility (02/28/24) Weakness (02/28/24) Physical Therapy Treatment Note PT-OP-A Visit Information Start: 02/11/24 17:55 Freq: Status: Active Protocol: Document 02/28/24 08:18 [facility] (Rec: 02/28/24 09:06 [facility] [id number]) Out-Patient Physical Therapy Visit Information Visit Information Visit Type Treatment Note Visit Note 02/10 Visit Start Time 08:19 Visit Stop Time 09:00 Visit Number 6 Number of PEST MANAGEMENT SUPERVISOR Visits 0 PT-OP-B Current Condition Start: 02/11/24 17:55 Freq: Status: Active Protocol: Document 02/12/24 09:06 [facility] (Rec: 02/12/24 09:49 [facility] [id number]) Current Condition History of Current Condition Current Complaints back pain History of Current Condition Pt reports he saw ortho yesterday who gave him a shot which has helped. He was told to take it easy.. In December, he fell and was in hospital for a week and went ot [facility] about 3 weeks and reports those beds are awful. He has chronic back pain also and notes arthritis. Pt walks w/4WW and will sit in chair as needed. He also rides his stationary bike. He uses a 4WW in the home. Pain getting worse since December until yesterday. He has had injections in the past and they help for a few months. He has been getting injections for the past year. 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 L one flips out on me and that is how he fell. Uses SPC when leaving the house as walker hard to get into the car. Pt has several low steps w/rail to get into the house. Lives w/. They have a cleaning lady. He has arms on the toilets to get off of them and higher toilet. Grab bar in the shower and chair. Pt reports in the past year, has hd 2 falls d/t LLE giving out. Has a bulky knee brace but its dificult to use. Sleeps well. Side sleepr w/ pillow btwn legs. Around the house uses FWW and uses 4WW outside. Prior Treatments and Tests November 2021 MRI: IMPRESSION: 1. There is a severe subacute L1 compression fracture. Cannot exclude a pathologic fracture. Consider further evaluation with CT. There is mild canal stenosis at T12-L1 secondary to mild posterior bony retropulsion. 2. Patient has underlying short pedicles. 3. 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 4. Multilevel facet arthropathy. 5. Multilevel foraminal narrowing as described above. Treatment Goals Patient/Caregiver Goals Get stronger in back and legs; feel more confident w/walking and feel like he could use the cane more often PT-OP-C Subjective Start: 02/11/24 17:55 Freq: Status: Active Protocol: Document 02/28/24 08:18 [facility] (Rec: 02/28/24 09:06 [facility] [id number]) OP-PT Subjective Patient Comments Patient Comments Pt reports feeling hip feels better. Can now lay on it. Notes manual seems to help PT-OP-E Functional Tests Start: 02/11/24 17:55 Freq: Status: Active Protocol: Document 02/12/24 09:06 [facility] (Rec: 02/12/24 09:49 [facility] [id number]) Functional Tests 6 Minute Walk Test Distance 313ft Device Used spc Comments CGA; stopped after 3 min d/t pt needing restroom 30 Second Sit to Stand Test Score 4 Comments w/hands, Bknee pain and back pain; silver chair Tinetti Balance and Gait Assessment Balance Score 12 Gait Score 8 Composite Score 20 PT-OP-G Mobility & Gait Start: 02/11/24 17:55 Freq: Status: Active Protocol: Document 02/12/24 09:06 [facility] (Rec: 02/12/24 09:49 [facility] [id number]) OP Gait Assessment Comments Gait Comments lat leaning w/gait and slow speed and WBOS; use of SPC PT-OP-J Posture/Palpation/Skin Start: 02/11/24 17:55 Freq: Status: Active Protocol: Document 02/12/24 09:06 [facility] (Rec: 02/12/24 09:49 [facility] [id number]) Posture Evaluation Comments Posture Comments L shoulder elevation; WBOS, fwd head, inc kyphosis, R pelvic shear, rot L PT-OP-M Strength Start: 02/11/24 17:55 Freq: Status: Active Protocol: Document 02/12/24 09:06 [facility] (Rec: 02/12/24 09:49 [facility] [id number]) Hip Strength Hip Manual Muscle Testing Right Flexion (L2) 3+ Fair+ External Rotation 4- Good- Internal Rotation 3+ Fair+ Left Flexion (L2) 3+ Fair+ External Rotation 3 Fair Internal Rotation 3 Fair Knee Strength Knee Manual Muscle Testing Right Flexion (S2) 4- Good- Extension (L3) 4+ Good+ Left Flexion (S2) 4- Good- Extension (L3) 4 Good Ankle/Foot Strength Ankle and Foot Manual Muscle Testing Right Dorsiflexion (L4) 4 Good Plantarflexion (S1) 5 Normal Left Dorsiflexion (L4) 4 Good Plantarflexion (S1) 4 Good Comments PF tested seated B PT-OP-Q Treatments Start: 02/11/24 17:55 Freq: Status: Active Protocol: Document 02/28/24 08:18 [facility] (Rec: 02/28/24 09:06 [facility] [id number]) Gym Equipment Shuttle Recovery Bilateral Squats Resistance 50# Shuttle Recovery Platform Stable Reps/Time 2x15 Shuttle Balance Red Details red Comments Fwd staggered stance; fwd and side: WBOS & NBOS Therapeutic Exercises Sitting Exercises DF Side bilateral Equipment Used 2# wt on foot Reps/Minutes 30 ea add Sitting Exercise Name hip Side bilateral Equipment Used w/ball Reps/Minutes 15x10 sec Standing Exercises resisted walk Standing Exercise Name fwd/back walk Side bilateral Equipment Used lvl 1 Reps/Minutes 15ft x2 sidesteps Side bilateral Equipment Used lvl 1 Reps/Minutes 15ft x2 ea Manual Therapy Treatment Consent Patient gave verbal consent for manual Yes treatment Soft Tissue Mobilization right piriformis/gluteal area Mobilization Type Rolling,Sustained Pressure Intensity/Depth Moderate Body Position Sidelying LS area Body Location R>L LS paraspinals and QL Mobilization Type Sustained Pressure Intensity/Depth Moderate Neuro Re-Education Treatment Balance Activities hurdles Equipment 6 hurdles Comments 1.fwd recip w/1 rail x6 2. side step x1 B PT-OP-T Assessment and Plan Start: 02/11/24 17:55 Freq: Status: Active Protocol: Document 02/28/24 08:18 [facility] (Rec: 02/28/24 09:06 [facility] [id number]) Physical Therapy Assessment Goals Walking tolerance Fdc Goal (LTG) Pt will be able to safely ambulate with SPC and report ability to walk home with SPC LTG Duration 04/08/2024 Gait Impairment Gait tolerance Short Term Goal (STG) Pt will be able to complete the 6 min walk achieving 600 ft with SPC only 1 standing rest break to inc activity tolerance Fdc Goal (LTG) Pt will be able to complete the 6 min walk achieving 800 ft with SPC taking no standing rest breaks and no inc in pain from baseline LTG Duration 05/06/2024 Balance Impairment Balance Fdc Goal (LTG) Pt will inc Tinetti balance assessment score from to to increase balance and gait for functional activity tolerance and dec fall risk LTG Duration 05/06/2024 Assessment Summary Assessment Pt did well with new balance tasks but was challenged by all new activities today. Improved gait when asked to use cane in L side but notes feeling it more in R hip Physical Therapy Plan Frequency and Duration Frequency of Treatment 2x/Week Duration of treatment (weeks) 12 Plan of Care Start Date 02/12/24 Plan of Care End Date 05/06/24 Next Visit Focus/Plan Next Note Type Treatment Note Next Visit Plan cont to advance core and hip strength exercises and balance activities;manual to help knee and back/leg pain
--- NOTE | 2024-03-03 10:13 | PT.OTN ---
Current Diagnoses Pain in right knee (03/03/24) Pain in left knee (03/03/24) Low back pain, unspecified (03/03/24) Difficulty in walking, not elsewhere classified (03/03/24) Other abnormalities of gait and mobility (03/03/24) Weakness (03/03/24) Physical Therapy Treatment Note PT-OP-A Visit Information Start: 02/11/24 17:55 Freq: Status: Active Protocol: Document 03/03/24 08:10 [facility] (Rec: 03/03/24 10:13 [facility] [id number]) Out-Patient Physical Therapy Visit Information Visit Information Visit Type Treatment Note Visit Note 03/12 Visit Start Time 08:18 Visit Stop Time 09:01 Visit Number 7 Number of SAXOPHONE PLAYER Visits 1 PT-OP-B Current Condition Start: 02/11/24 17:55 Freq: Status: Active Protocol: Document 02/12/24 09:06 [facility] (Rec: 02/12/24 09:49 [facility] [id number]) Current Condition History of Current Condition Current Complaints back pain History of Current Condition Pt reports he saw ortho yesterday who gave him a shot which has helped. He was told to take it easy.. In December, he fell and was in hospital for a week and went ot [facility] about 3 weeks and reports those beds are awful. He has chronic back pain also and notes arthritis. Pt walks w/4WW and will sit in chair as needed. He also rides his stationary bike. He uses a 4WW in the home. Pain getting worse since December until yesterday. He has had injections in the past and they help for a few months. He has been getting injections for the past year. 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 L one flips out on me and that is how he fell. Uses SPC when leaving the house as walker hard to get into the car. Pt has several low steps w/rail to get into the house. Lives w/. They have a cleaning lady. He has arms on the toilets to get off of them and higher toilet. Grab bar in the shower and chair. Pt reports in the past year, has hd 2 falls d/t LLE giving out. Has a bulky knee brace but its dificult to use. Sleeps well. Side sleepr w/ pillow btwn legs. Around the house uses FWW and uses 4WW outside. Prior Treatments and Tests November 2021 MRI: IMPRESSION: 1. There is a severe subacute L1 compression fracture. Cannot exclude a pathologic fracture. Consider further evaluation with CT. There is mild canal stenosis at T12-L1 secondary to mild posterior bony retropulsion. 2. Patient has underlying short pedicles. 3. 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 4. Multilevel facet arthropathy. 5. Multilevel foraminal narrowing as described above. Treatment Goals Patient/Caregiver Goals Get stronger in back and legs; feel more confident w/walking and feel like he could use the cane more often PT-OP-C Subjective Start: 02/11/24 17:55 Freq: Status: Active Protocol: Document 03/03/24 08:10 [facility] (Rec: 03/03/24 10:13 [facility] [id number]) OP-PT Subjective Patient Comments Patient Comments Patient rates pain 8/10 right LE into groin. Patient reports he rode the indoor bike all weekend. PT-OP-E Functional Tests Start: 02/11/24 17:55 Freq: Status: Active Protocol: Document 02/12/24 09:06 [facility] (Rec: 02/12/24 09:49 [facility] [id number]) Functional Tests 6 Minute Walk Test Distance 313ft Device Used spc Comments CGA; stopped after 3 min d/t pt needing restroom 30 Second Sit to Stand Test Score 4 Comments w/hands, Bknee pain and back pain; silver chair Tinetti Balance and Gait Assessment Balance Score 12 Gait Score 8 Composite Score 20 PT-OP-G Mobility & Gait Start: 02/11/24 17:55 Freq: Status: Active Protocol: Document 02/12/24 09:06 [facility] (Rec: 02/12/24 09:49 [facility] [id number]) OP Gait Assessment Comments Gait Comments lat leaning w/gait and slow speed and WBOS; use of SPC PT-OP-J Posture/Palpation/Skin Start: 02/11/24 17:55 Freq: Status: Active Protocol: Document 02/12/24 09:06 [facility] (Rec: 02/12/24 09:49 [facility] [id number]) Posture Evaluation Comments Posture Comments L shoulder elevation; WBOS, fwd head, inc kyphosis, R pelvic shear, rot L PT-OP-M Strength Start: 02/11/24 17:55 Freq: Status: Active Protocol: Document 02/12/24 09:06 [facility] (Rec: 02/12/24 09:49 [facility] [id number]) Hip Strength Hip Manual Muscle Testing Right Flexion (L2) 3+ Fair+ External Rotation 4- Good- Internal Rotation 3+ Fair+ Left Flexion (L2) 3+ Fair+ External Rotation 3 Fair Internal Rotation 3 Fair Knee Strength Knee Manual Muscle Testing Right Flexion (S2) 4- Good- Extension (L3) 4+ Good+ Left Flexion (S2) 4- Good- Extension (L3) 4 Good Ankle/Foot Strength Ankle and Foot Manual Muscle Testing Right Dorsiflexion (L4) 4 Good Plantarflexion (S1) 5 Normal Left Dorsiflexion (L4) 4 Good Plantarflexion (S1) 4 Good Comments PF tested seated B PT-OP-Q Treatments Start: 02/11/24 17:55 Freq: Status: Active Protocol: Document 03/03/24 08:10 [facility] (Rec: 03/03/24 10:13 [facility] [id number]) Therapeutic Exercises Supine Exercises modified Robson stretch Side right Reps/Minutes 15 seconds X 2 Comments verbal cues for LE positioning breathing from diaphragm in modified restorative pose Side bilateral Reps/Minutes 1min Comments pt ed use of self tactile cues for breathing SLR Supine Exercise Name w/core engagement Side bilateral Reps/Minutes X2 each LE Comments Verbal cues for bracing and to push knee straight, quad lag noted bilateral LTR Side bilateral Reps/Minutes 10 Comments Verbal cues to perform in pain free range bridges Side bilateral Reps/Minutes 10 Comments monitored for pain Standing Exercises sit to stand Standing Exercise Name with UE use Side bilateral Resistance level one band Reps/Minutes X6 Comments Verbal cues to avoid pause, post hip hinge hip abd Side bilateral Equipment Used L1 Reps/Minutes X15 without hold and one one min hold Manual Therapy Treatment Soft Tissue Mobilization right piriformis/gluteal area Body Location glute/ priformis and hip flexor Mobilization Type Rolling,Sustained Pressure Intensity/Depth Moderate Body Position Sidelying LS area Body Location RLS paraspinals Mobilization Type Sustained Pressure Intensity/Depth Moderate Manual Techniques MET for right AI left PI Type and pubic shot gun, modified AI PI MET to seated Reps/Duration 6 X 6 seconds each Comments unable to perform AI PI MET hooklying Neuro Re-Education Treatment Balance Activities hurdles Equipment 6 hurdles X 6 Comments fwd hands above bars 4X hands on bars X 2 CGA retro stepping Reps/Duration 10 feet X 3 Comments CGA hands above bars tandem stepping Reps/Duration 10 feet X 3 Comments hands above bars CGA throughout SLS Reps/Duration X2-3 each LE Comments noted increased SLS L<R. Patient ed to note this week if weight is shifted right in standing throughout the day and to equalize weight shift. PT-OP-T Assessment and Plan Start: 02/11/24 17:55 Freq: Status: Active Protocol: Document 03/03/24 08:10 [facility] (Rec: 03/03/24 10:13 [facility] [id number]) Physical Therapy Assessment Goals Walking tolerance Patient Access Manager Goal (LTG) Pt will be able to safely ambulate with SPC and report ability to walk home with SPC LTG Duration 04/08/2024 Gait Impairment Gait tolerance Short Term Goal (STG) Pt will be able to complete the 6 min walk achieving 600 ft with SPC only 1 standing rest break to inc activity tolerance Patient Access Manager Goal (LTG) Pt will be able to complete the 6 min walk achieving 800 ft with SPC taking no standing rest breaks and no inc in pain from baseline LTG Duration 05/06/2024 Balance Impairment Balance Group Home Goal (LTG) Pt will inc Tinetti balance assessment score from 20/28 to 24/28 to increase balance and gait for functional activity tolerance and dec fall risk LTG Duration 05/06/2024 Assessment Summary Assessment Patient rated right LE pain 5/ 10 post manual and exercise, but reports it went back up to nearly an 8/10 post balance exercise Physical Therapy Plan Frequency and Duration Frequency of Treatment 2x/Week Duration of treatment (weeks) 12 Plan of Care Start Date 02/12/24 Plan of Care End Date 05/06/24 Next Visit Focus/Plan Next Note Type Treatment Note Next Visit Plan cont to advance core and hip strength exercises and balance activities;manual to help knee and back/leg pain Assess hamstring length, possibly hamstring stretch to HEP
--- NOTE | 2024-03-18 16:04 | PT.OTN ---
Current Diagnoses Pain in right knee (03/18/24) Pain in left knee (03/18/24) Low back pain, unspecified (03/18/24) Difficulty in walking, not elsewhere classified (03/18/24) Other abnormalities of gait and mobility (03/18/24) Weakness (03/18/24) Physical Therapy Treatment Note PT-OP-A Visit Information Start: 02/11/24 17:55 Freq: Status: Active Protocol: Document 03/18/24 13:43 SW (Rec: 03/18/24 14:34 SW [id number]) Out-Patient Physical Therapy Visit Information Visit Information Visit Type Treatment Note Visit Note 04/12 Visit Start Time 13:45 Visit Stop Time 14:25 Visit Number 8 Number of PROPERTY UTILIZATION MANAGER Visits 2 PT-OP-B Current Condition Start: 02/11/24 17:55 Freq: Status: Active Protocol: Document 02/12/24 09:06 [facility] (Rec: 02/12/24 09:49 [facility] [id number]) Current Condition History of Current Condition Current Complaints back pain History of Current Condition Pt reports he saw ortho yesterday who gave him a shot which has helped. He was told to take it easy.. In December, he fell and was in hospital for a week and went ot [facility] about 3 weeks and reports those beds are awful. He has chronic back pain also and notes arthritis. Pt walks w/4WW and will sit in chair as needed. He also rides his stationary bike. He uses a 4WW in the home. Pain getting worse since December until yesterday. He has had injections in the past and they help for a few months. He has been getting injections for the past year. 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 L one flips out on me and that is how he fell. Uses SPC when leaving the house as walker hard to get into the car. Pt has several low steps w/rail to get into the house. Lives w/. They have a cleaning lady. He has arms on the toilets to get off of them and higher toilet. Grab bar in the shower and chair. Pt reports in the past year, has hd 2 falls d/t LLE giving out. Has a bulky knee brace but its dificult to use. Sleeps well. Side sleepr w/ pillow btwn legs. Around the house uses FWW and uses 4WW outside. Prior Treatments and Tests November 2021 MRI: IMPRESSION: 1. There is a severe subacute L1 compression fracture. Cannot exclude a pathologic fracture. Consider further evaluation with CT. There is mild canal stenosis at T12-L1 secondary to mild posterior bony retropulsion. 2. Patient has underlying short pedicles. 3. 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 4. Multilevel facet arthropathy. 5. Multilevel foraminal narrowing as described above. Treatment Goals Patient/Caregiver Goals Get stronger in back and legs; feel more confident w/walking and feel like he could use the cane more often PT-OP-C Subjective Start: 02/11/24 17:55 Freq: Status: Active Protocol: Document 03/18/24 13:43 (Rec: 03/18/24 14:34 [id number]) OP-PT Subjective Patient Comments Patient Comments Pt reports having tremors/ shaking in both hands. Pain down right leg, back. 10/10 pain level today. PT-OP-E Functional Tests Start: 02/11/24 17:55 Freq: Status: Active Protocol: Document 02/12/24 09:06 [facility] (Rec: 02/12/24 09:49 [facility] [id number]) Functional Tests 6 Minute Walk Test Distance 313ft Device Used spc Comments CGA; stopped after 3 min d/t pt needing restroom 30 Second Sit to Stand Test Score 4 Comments w/hands, Bknee pain and back pain; silver chair Tinetti Balance and Gait Assessment Balance Score 12 Gait Score 8 Composite Score 20 PT-OP-G Mobility & Gait Start: 02/11/24 17:55 Freq: Status: Active Protocol: Document 02/12/24 09:06 [facility] (Rec: 02/12/24 09:49 [facility] [id number]) OP Gait Assessment Comments Gait Comments lat leaning w/gait and slow speed and WBOS; use of SPC PT-OP-J Posture/Palpation/Skin Start: 02/11/24 17:55 Freq: Status: Active Protocol: Document 02/12/24 09:06 [facility] (Rec: 02/12/24 09:49 [facility] [id number]) Posture Evaluation Comments Posture Comments L shoulder elevation; WBOS, fwd head, inc kyphosis, R pelvic shear, rot L PT-OP-M Strength Start: 02/11/24 17:55 Freq: Status: Active Protocol: Document 02/12/24 09:06 [facility] (Rec: 02/12/24 09:49 [facility] [id number]) Hip Strength Hip Manual Muscle Testing Right Flexion (L2) 3+ Fair+ External Rotation 4- Good- Internal Rotation 3+ Fair+ Left Flexion (L2) 3+ Fair+ External Rotation 3 Fair Internal Rotation 3 Fair Knee Strength Knee Manual Muscle Testing Right Flexion (S2) 4- Good- Extension (L3) 4+ Good+ Left Flexion (S2) 4- Good- Extension (L3) 4 Good Ankle/Foot Strength Ankle and Foot Manual Muscle Testing Right Dorsiflexion (L4) 4 Good Plantarflexion (S1) 5 Normal Left Dorsiflexion (L4) 4 Good Plantarflexion (S1) 4 Good Comments PF tested seated B PT-OP-Q Treatments Start: 02/11/24 17:55 Freq: Status: Active Protocol: Document 03/18/24 13:43 SW (Rec: 03/18/24 14:34 [id number]) Gym Equipment Shuttle Recovery Bilateral Squats Resistance 50# Shuttle Recovery Platform Stable Reps/Time 2x15 Therapeutic Exercises Supine Exercises HS stretch Supine Exercise Name HS stretch Side bilateral Equipment Used towel/strap Reps/Minutes 15 x 2 ea Comments cued for alignment, gentle pain free stretch BKFO Supine Exercise Name BKFO Comments Cues for core stabilization modified Robson stretch Side right Reps/Minutes 15 seconds X 2 Comments verbal cues for LE positioning LTR Side bilateral Reps/Minutes 10 Comments Verbal cues to perform in pain free range bridges Side bilateral Reps/Minutes 10 Comments monitored for pain Standing Exercises resisted walk Standing Exercise Name fwd/back walk Side bilateral Equipment Used lvl 1 Reps/Minutes 15ft x2 sidesteps Side bilateral Equipment Used lvl 1 Reps/Minutes 15ft x2 ea Manual Therapy Treatment Soft Tissue Mobilization right piriformis/gluteal area Body Location glute/ priformis and hip flexor Mobilization Type Rolling,Sustained Pressure Intensity/Depth Moderate Body Position Sidelying LS area Body Location RLS paraspinals Mobilization Type Sustained Pressure Intensity/Depth Moderate PT-OP-T Assessment and Plan Start: 02/11/24 17:55 Freq: Status: Active Protocol: Document 03/18/24 13:43 (Rec: 03/18/24 14:34 [id number]) Physical Therapy Assessment Goals Walking tolerance Hardware Trainer Goal (LTG) Pt will be able to safely ambulate with SPC and report ability to walk home with SPC LTG Duration 04/08/2024 Gait Impairment Gait tolerance Short Term Goal (STG) Pt will be able to complete the 6 min walk achieving 600 ft with SPC only 1 standing rest break to inc activity tolerance Hardware Trainer Goal (LTG) Pt will be able to complete the 6 min walk achieving 800 ft with SPC taking no standing rest breaks and no inc in pain from baseline LTG Duration 05/06/2024 Balance Impairment Balance Assisted Goal (LTG) Pt will inc Tinetti balance assessment score from to to increase balance and gait for functional activity tolerance and dec fall risk LTG Duration 05/06/2024 Assessment Summary Assessment Session focused on manual therapy today to decrease pt pain level (06/12 coming into session), relax mm tension and warm up mms prior to initiation of exercises. Assessed pt hamstring length in 90/90 position this session , pt presents with very tight hamstrings (L>R), cued pt for gentle, pain free stretch only , plan to review next session as able and issue pt HO for HEP. Physical Therapy Plan Frequency and Duration Frequency of Treatment 2x/Week Duration of treatment (weeks) 12 Plan of Care Start Date 02/12/24 Plan of Care End Date 05/06/24 Therapeutic Interventions Therapeutic Interventions Balance Training,Coordination Training,Gait Training,Home Exercise Program,Joint Mobilizations,Manual Therapy, Neuromuscular Re-education, Orthotic/Prosthetic Management ,Patient/Caregiver Education, Soft Tissue Mobilization, Taping,Therapeutic Activities, Therapeutic Exercises Modalities Biofeedback,Cold Pack/Ice Massage,Electric Stimulation, Hot Packs,Traction- Mechanical Other Referrals/Consults Referrals/Consults Recommended Recommend to follow up with Dr Tomas Ureña, reguarding back injections Next Visit Focus/Plan Next Note Type Treatment Note Next Visit Plan cont to advance core and hip strength exercises and balance activities;manual to help knee and back/leg pain Assess hamstring length, possibly hamstring stretch to HEP
--- NOTE | 2024-03-20 17:34 | PT.OTN ---
Current Diagnoses Pain in right knee (03/20/24) Pain in left knee (03/20/24) Low back pain, unspecified (03/20/24) Difficulty in walking, not elsewhere classified (03/20/24) Other abnormalities of gait and mobility (03/20/24) Weakness (03/20/24) Physical Therapy Treatment Note PT-OP-A Visit Information Start: 02/11/24 17:55 Freq: Status: Active Protocol: Document 03/20/24 13:54 SW (Rec: 03/20/24 14:35 SW [id number]) Out-Patient Physical Therapy Visit Information Visit Information Visit Type Treatment Note Visit Note 05/13 Visit Start Time 13:47 Visit Stop Time 14:25 Visit Number 9 Number of SUPERVISOR FERTILIZER PROCESSING Visits 3 PT-OP-B Current Condition Start: 02/11/24 17:55 Freq: Status: Active Protocol: Document 02/12/24 09:06 [facility] (Rec: 02/12/24 09:49 [facility] [id number]) Current Condition History of Current Condition Current Complaints back pain History of Current Condition Pt reports he saw ortho yesterday who gave him a shot which has helped. He was told to take it easy.. In December, he fell and was in hospital for a week and went ot [facility] about 3 weeks and reports those beds are awful. He has chronic back pain also and notes arthritis. Pt walks w/4WW and will sit in chair as needed. He also rides his stationary bike. He uses a 4WW in the home. Pain getting worse since December until yesterday. He has had injections in the past and they help for a few months. He has been getting injections for the past year. 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 L one flips out on me and that is how he fell. Uses SPC when leaving the house as walker hard to get into the car. Pt has several low steps w/rail to get into the house. Lives w/. They have a cleaning lady. He has arms on the toilets to get off of them and higher toilet. Grab bar in the shower and chair. Pt reports in the past year, has hd 2 falls d/t LLE giving out. Has a bulky knee brace but its dificult to use. Sleeps well. Side sleepr w/ pillow btwn legs. Around the house uses FWW and uses 4WW outside. Prior Treatments and Tests November 2021 MRI: IMPRESSION: 1. There is a severe subacute L1 compression fracture. Cannot exclude a pathologic fracture. Consider further evaluation with CT. There is mild canal stenosis at T12-L1 secondary to mild posterior bony retropulsion. 2. Patient has underlying short pedicles. 3. 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 4. Multilevel facet arthropathy. 5. Multilevel foraminal narrowing as described above. Treatment Goals Patient/Caregiver Goals Get stronger in back and legs; feel more confident w/walking and feel like he could use the cane more often PT-OP-C Subjective Start: 02/11/24 17:55 Freq: Status: Active Protocol: Document 03/20/24 13:54 (Rec: 03/20/24 14:35 [id number]) OP-PT Subjective Patient Comments Patient Comments Pt reports relief felt post last session manual therapy. Pt reports today feeling 10/10 pain in back and knees pain, unable to do much in the way of exercises. PT-OP-E Functional Tests Start: 02/11/24 17:55 Freq: Status: Active Protocol: Document 02/12/24 09:06 [facility] (Rec: 02/12/24 09:49 [facility] [id number]) Functional Tests 6 Minute Walk Test Distance 313ft Device Used spc Comments CGA; stopped after 3 min d/t pt needing restroom 30 Second Sit to Stand Test Score 4 Comments w/hands, Bknee pain and back pain; silver chair Tinetti Balance and Gait Assessment Balance Score 12 Gait Score 8 Composite Score 20 PT-OP-G Mobility & Gait Start: 02/11/24 17:55 Freq: Status: Active Protocol: Document 02/12/24 09:06 [facility] (Rec: 02/12/24 09:49 [facility] [id number]) OP Gait Assessment Comments Gait Comments lat leaning w/gait and slow speed and WBOS; use of SPC PT-OP-J Posture/Palpation/Skin Start: 02/11/24 17:55 Freq: Status: Active Protocol: Document 02/12/24 09:06 [facility] (Rec: 02/12/24 09:49 [facility] [id number]) Posture Evaluation Comments Posture Comments L shoulder elevation; WBOS, fwd head, inc kyphosis, R pelvic shear, rot L PT-OP-M Strength Start: 02/11/24 17:55 Freq: Status: Active Protocol: Document 02/12/24 09:06 [facility] (Rec: 02/12/24 09:49 [facility] [id number]) Hip Strength Hip Manual Muscle Testing Right Flexion (L2) 3+ Fair+ External Rotation 4- Good- Internal Rotation 3+ Fair+ Left Flexion (L2) 3+ Fair+ External Rotation 3 Fair Internal Rotation 3 Fair Knee Strength Knee Manual Muscle Testing Right Flexion (S2) 4- Good- Extension (L3) 4+ Good+ Left Flexion (S2) 4- Good- Extension (L3) 4 Good Ankle/Foot Strength Ankle and Foot Manual Muscle Testing Right Dorsiflexion (L4) 4 Good Plantarflexion (S1) 5 Normal Left Dorsiflexion (L4) 4 Good Plantarflexion (S1) 4 Good Comments PF tested seated B PT-OP-Q Treatments Start: 02/11/24 17:55 Freq: Status: Active Protocol: Document 03/20/24 13:54 SW (Rec: 03/20/24 14:35 SW [id number]) Gym Equipment Shuttle Recovery Bilateral Squats Resistance 50# Shuttle Recovery Platform Stable Reps/Time 2x15 Therapeutic Exercises Supine Exercises HS stretch Supine Exercise Name HS stretch Side bilateral Equipment Used towel/strap Reps/Minutes 15 x 2 ea Comments cued for alignment, gentle pain free stretch Sitting Exercises add Sitting Exercise Name hip Side bilateral Equipment Used w/ball Reps/Minutes 15x10 sec Standing Exercises resisted walk Standing Exercise Name fwd/back walk Side bilateral Equipment Used lvl 2 Reps/Minutes 15ft x2 sidesteps Side bilateral Equipment Used lvl 2 Reps/Minutes 15ft x2 ea hip abd Side bilateral Equipment Used L2 Reps/Minutes X15 without hold and one one min hold Comments cues for stabil, pain in R hip during R stance, denies pain with R hip abd Manual Therapy Treatment Soft Tissue Mobilization right piriformis/gluteal area Body Location glute/ priformis and hip flexor Mobilization Type Rolling,Sustained Pressure Intensity/Depth Moderate Body Position Sidelying Comments pillow between knees LS area Body Location RLS paraspinals, QL Mobilization Type Sustained Pressure Intensity/Depth Moderate Joint Mobilizations bilateral knees Joint right and left knee Direction PA Grade III Body Position Hooklying Reps/Duration 3X10 Comments monitored for pain Self-Care/Home Management Treatment Education Patient Education Home Exercise Program,Joint Protection,Pain Management Other Education Educated pt on HEP and carryover for pt progress. Educated patient on physiological effects of movement and the importance of muscle activation for circulation and lubrication of joints. PT-OP-T Assessment and Plan Start: 02/11/24 17:55 Freq: Status: Active Protocol: Document 03/20/24 13:54 SW (Rec: 03/20/24 14:35 SW [id number]) Physical Therapy Assessment Goals Walking tolerance Assisted Goal (LTG) Pt will be able to safely ambulate with SPC and report ability to walk home with SPC LTG Duration 04/08/2024 Gait Impairment Gait tolerance Short Term Goal (STG) Pt will be able to complete the 6 min walk achieving 600 ft with SPC only 1 standing rest break to inc activity tolerance Assisted Goal (LTG) Pt will be able to complete the 6 min walk achieving 800 ft with SPC taking no standing rest breaks and no inc in pain from baseline LTG Duration 05/06/2024 Balance Impairment Balance Assisted Goal (LTG) Pt will inc Tinetti balance assessment score from to to increase balance and gait for functional activity tolerance and dec fall risk LTG Duration 05/06/2024 Assessment Summary Assessment Pt reports increased pain today, felt better post last session manual therapy, then started to increase again yesterday, 06/12 today. Pt requested to continue manual therapy today for pain relief, pt reported good tolerance. Pt reported not consistantly doing HEP due to pain, discussed modifications and discussed with pt importance of HEP carryover for pt progress. Pt may benefit from further patient education on modalities prn for pain management. Physical Therapy Plan Frequency and Duration Frequency of Treatment 2x/Week Duration of treatment (weeks) 12 Plan of Care Start Date 02/12/24 Plan of Care End Date 05/06/24 Therapeutic Interventions Therapeutic Interventions Balance Training,Coordination Training,Gait Training,Home Exercise Program,Joint Mobilizations,Manual Therapy, Neuromuscular Re-education, Orthotic/Prosthetic Management ,Patient/Caregiver Education, Soft Tissue Mobilization, Taping,Therapeutic Activities, Therapeutic Exercises Modalities Biofeedback,Cold Pack/Ice Massage,Electric Stimulation, Hot Packs,Traction- Mechanical Other Referrals/Consults Referrals/Consults Recommended Recommend to follow up with Dr Tomas Ureña, reguarding back injections Next Visit Focus/Plan Next Note Type Progress Note Next Visit Plan cont to advance core and hip strength exercises and balance activities;manual to help knee and back/leg pain Assess hamstring length, possibly hamstring stretch to HEP
--- NOTE | 2024-03-24 10:32 | PT.OTN ---
Current Diagnoses Pain in right knee (03/24/24) Pain in left knee (03/24/24) Low back pain, unspecified (03/24/24) Difficulty in walking, not elsewhere classified (03/24/24) Other abnormalities of gait and mobility (03/24/24) Weakness (03/24/24) Physical Therapy Treatment Note PT-OP-A Visit Information Start: 02/11/24 17:55 Freq: Status: Active Protocol: Document 03/24/24 09:50 [facility] (Rec: 03/24/24 10:32 [facility] [id number]) Out-Patient Physical Therapy Visit Information Visit Information Visit Type Progress Note Visit Note 09/12 Visit Start Time 09:51 Visit Stop Time 10:30 Visit Number 10 Number of RETAIL KEY HOLDER Visits 0 PT-OP-B Current Condition Start: 02/11/24 17:55 Freq: Status: Active Protocol: Document 02/12/24 09:06 [facility] (Rec: 02/12/24 09:49 [facility] [id number]) Current Condition History of Current Condition Current Complaints back pain History of Current Condition Pt reports he saw ortho yesterday who gave him a shot which has helped. He was told to take it easy.. In December, he fell and was in hospital for a week and went ot [facility] about 3 weeks and reports those beds are awful. He has chronic back pain also and notes arthritis. Pt walks w/4WW and will sit in chair as needed. He also rides his stationary bike. He uses a 4WW in the home. Pain getting worse since December until yesterday. He has had injections in the past and they help for a few months. He has been getting injections for the past year. 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 L one flips out on me and that is how he fell. Uses SPC when leaving the house as walker hard to get into the car. Pt has several low steps w/rail to get into the house. Lives w/. They have a cleaning lady. He has arms on the toilets to get off of them and higher toilet. Grab bar in the shower and chair. Pt reports in the past year, has hd 2 falls d/t LLE giving out. Has a bulky knee brace but its dificult to use. Sleeps well. Side sleepr w/ pillow btwn legs. Around the house uses FWW and uses 4WW outside. Prior Treatments and Tests November 2021 MRI: IMPRESSION: 1. There is a severe subacute L1 compression fracture. Cannot exclude a pathologic fracture. Consider further evaluation with CT. There is mild canal stenosis at T12-L1 secondary to mild posterior bony retropulsion. 2. Patient has underlying short pedicles. 3. 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 4. Multilevel facet arthropathy. 5. Multilevel foraminal narrowing as described above. Treatment Goals Patient/Caregiver Goals Get stronger in back and legs; feel more confident w/walking and feel like he could use the cane more often PT-OP-C Subjective Start: 02/11/24 17:55 Freq: Status: Active Protocol: Document 03/24/24 09:50 [facility] (Rec: 03/24/24 10:32 [facility] [id number]) OP-PT Subjective Patient Comments Patient Comments Pt reports less pain down leg since starting PT. Still a lot of pain in back and knees. PT-OP-E Functional Tests Start: 02/11/24 17:55 Freq: Status: Active Protocol: Document 03/24/24 09:50 [facility] (Rec: 03/24/24 10:32 [facility] [id number]) Functional Tests 6 Minute Walk Test Distance 515ft Device Used spc Comments SBA; 1 -10 sec standing rest break Tinetti Balance and Gait Assessment Balance Score 12 Gait Score 13 Composite Score 22 PT-OP-G Mobility & Gait Start: 02/11/24 17:55 Freq: Status: Active Protocol: Document 02/12/24 09:06 [facility] (Rec: 02/12/24 09:49 [facility] [id number]) OP Gait Assessment Comments Gait Comments lat leaning w/gait and slow speed and WBOS; use of SPC PT-OP-J Posture/Palpation/Skin Start: 02/11/24 17:55 Freq: Status: Active Protocol: Document 02/12/24 09:06 [facility] (Rec: 02/12/24 09:49 [facility] [id number]) Posture Evaluation Comments Posture Comments L shoulder elevation; WBOS, fwd head, inc kyphosis, R pelvic shear, rot L PT-OP-M Strength Start: 02/11/24 17:55 Freq: Status: Active Protocol: Document 02/12/24 09:06 [facility] (Rec: 02/12/24 09:49 [facility] [id number]) Hip Strength Hip Manual Muscle Testing Right Flexion (L2) 3+ Fair+ External Rotation 4- Good- Internal Rotation 3+ Fair+ Left Flexion (L2) 3+ Fair+ External Rotation 3 Fair Internal Rotation 3 Fair Knee Strength Knee Manual Muscle Testing Right Flexion (S2) 4- Good- Extension (L3) 4+ Good+ Left Flexion (S2) 4- Good- Extension (L3) 4 Good Ankle/Foot Strength Ankle and Foot Manual Muscle Testing Right Dorsiflexion (L4) 4 Good Plantarflexion (S1) 5 Normal Left Dorsiflexion (L4) 4 Good Plantarflexion (S1) 4 Good Comments PF tested seated B PT-OP-Q Treatments Start: 02/11/24 17:55 Freq: Status: Active Protocol: Document 03/24/24 09:50 [facility] (Rec: 03/24/24 10:32 [facility] [id number]) Therapeutic Exercises Sitting Exercises stretch Sitting Exercise Name HS Side bilateral Reps/Minutes 45 sec ea Standing Exercises 6 min walk Equipment Used SPC Reps/Minutes 515ft resisted walk Standing Exercise Name fwd/back walk Side bilateral Equipment Used lvl 2 Reps/Minutes 15ft sidesteps Side bilateral Equipment Used lvl 2 Reps/Minutes 10 ft ea Manual Therapy Treatment Consent Patient gave verbal consent for manual Yes treatment Soft Tissue Mobilization right piriformis/gluteal area Body Location R glute medius Mobilization Type Rolling,Sustained Pressure Intensity/Depth Moderate Body Position Sidelying Comments pillow between knees LS area Body Location R>L LS paraspinals, QL Mobilization Type Sustained Pressure Intensity/Depth Moderate Body Position Sidelying Neuro Re-Education Treatment Balance Activities testing Comments [id number] tinetti-22 tandem stepping Comments b stance trials PT-OP-T Assessment and Plan Start: 02/11/24 17:55 Freq: Status: Active Protocol: Document 03/24/24 09:50 [facility] (Rec: 03/24/24 10:32 [facility] [id number]) Physical Therapy Assessment Goals Walking tolerance Usp Goal (LTG) Pt will be able to safely ambulate with SPC and report ability to walk home with SPC 7/22-no change LTG Duration 04/08/2024 Gait Impairment Gait tolerance Short Term Goal (STG) Pt will be able to complete the 6 min walk achieving 600 ft with SPC only 1 standing rest break to inc activity tolerance 03/24-515ft w/SPC w/1 standing rest break STG Duration 04/03 Experimental Machinist Goal (LTG) Pt will be able to complete the 6 min walk achieving 800 ft with SPC taking no standing rest breaks and no inc in pain from baseline LTG Duration 05/06/2024 Balance Impairment Balance Experimental Machinist Goal (LTG) Pt will inc Tinetti balance assessment score from to to increase balance and gait for functional activity tolerance and dec fall risk 03/24- LTG Duration 05/06/2024 Assessment Summary Assessment Pt is making good progress w/ PT with improved balance and ovearll mobility. Pt has noted dec R leg pain w/PT but cont to be limited by LBP and knee pain. Cont PT to dec pain, improve balance, gait and strength. Physical Therapy Plan Frequency and Duration Frequency of Treatment 2x/Week Duration of treatment (weeks) 12 Plan of Care Start Date 02/12/24 Plan of Care End Date 05/06/24 Therapeutic Interventions Therapeutic Interventions Balance Training,Coordination Training,Gait Training,Home Exercise Program,Joint Mobilizations,Manual Therapy, Neuromuscular Re-education, Orthotic/Prosthetic Management ,Patient/Caregiver Education, Soft Tissue Mobilization, Taping,Therapeutic Activities, Therapeutic Exercises Modalities Biofeedback,Cold Pack/Ice Massage,Electric Stimulation, Hot Packs,Traction- Mechanical Next Visit Focus/Plan Next Note Type Treatment Note Next Visit Plan cont to advance core and hip strength exercises and balance activities;manual to help knee and back/leg pain
--- NOTE | 2024-03-31 12:56 | PT.OTN ---
Current Diagnoses Pain in right knee (03/31/24) Pain in left knee (03/31/24) Low back pain, unspecified (03/31/24) Difficulty in walking, not elsewhere classified (03/31/24) Other abnormalities of gait and mobility (03/31/24) Weakness (03/31/24) Physical Therapy Treatment Note PT-OP-A Visit Information Start: 02/11/24 17:55 Freq: Status: Active Protocol: Document 03/31/24 08:14 [facility] (Rec: 03/31/24 12:55 [facility] [id number]) Out-Patient Physical Therapy Visit Information Visit Information Visit Type Treatment Note Visit Note 10/13 Access Code: [email or web address] Visit Start Time 09:48 Visit Stop Time 10:29 Visit Number 11 Number of VERTICAL CONTOUR BAND SAW OPERATOR Visits 1 PT-OP-B Current Condition Start: 02/11/24 17:55 Freq: Status: Active Protocol: Document 02/12/24 09:06 [facility] (Rec: 02/12/24 09:49 [facility] [id number]) Current Condition History of Current Condition Current Complaints back pain History of Current Condition Pt reports he saw ortho yesterday who gave him a shot which has helped. He was told to take it easy.. In December, he fell and was in hospital for a week and went ot [facility] about 3 weeks and reports those beds are awful. He has chronic back pain also and notes arthritis. Pt walks w/4WW and will sit in chair as needed. He also rides his stationary bike. He uses a 4WW in the home. Pain getting worse since December until yesterday. He has had injections in the past and they help for a few months. He has been getting injections for the past year. 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 L one flips out on me and that is how he fell. Uses SPC when leaving the house as walker hard to get into the car. Pt has several low steps w/rail to get into the house. Lives w/. They have a cleaning lady. He has arms on the toilets to get off of them and higher toilet. Grab bar in the shower and chair. Pt reports in the past year, has hd 2 falls d/t LLE giving out. Has a bulky knee brace but its dificult to use. Sleeps well. Side sleepr w/ pillow btwn legs. Around the house uses FWW and uses 4WW outside. Prior Treatments and Tests November 2021 MRI: IMPRESSION: 1. There is a severe subacute L1 compression fracture. Cannot exclude a pathologic fracture. Consider further evaluation with CT. There is mild canal stenosis at T12-L1 secondary to mild posterior bony retropulsion. 2. Patient has underlying short pedicles. 3. 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 4. Multilevel facet arthropathy. 5. Multilevel foraminal narrowing as described above. Treatment Goals Patient/Caregiver Goals Get stronger in back and legs; feel more confident w/walking and feel like he could use the cane more often PT-OP-C Subjective Start: 02/11/24 17:55 Freq: Status: Active Protocol: Document 03/31/24 08:14 [facility] (Rec: 03/31/24 12:55 [facility] [id number]) OP-PT Subjective Patient Comments Patient Comments Patient reports he had injections a week ago today, which are mediocre, but working bettern than previously. Patient rates pain 5/10 right hip start of session. PT-OP-E Functional Tests Start: 02/11/24 17:55 Freq: Status: Active Protocol: Document 03/24/24 09:50 [facility] (Rec: 03/24/24 10:32 [facility] [id number]) Functional Tests 6 Minute Walk Test Distance 515ft Device Used spc Comments SBA; 1 -10 sec standing rest break Tinetti Balance and Gait Assessment Balance Score 12 Gait Score 13 Composite Score 22 PT-OP-G Mobility & Gait Start: 02/11/24 17:55 Freq: Status: Active Protocol: Document 02/12/24 09:06 [facility] (Rec: 02/12/24 09:49 [facility] [id number]) OP Gait Assessment Comments Gait Comments lat leaning w/gait and slow speed and WBOS; use of SPC PT-OP-J Posture/Palpation/Skin Start: 02/11/24 17:55 Freq: Status: Active Protocol: Document 02/12/24 09:06 [facility] (Rec: 02/12/24 09:49 [facility] [id number]) Posture Evaluation Comments Posture Comments L shoulder elevation; WBOS, fwd head, inc kyphosis, R pelvic shear, rot L PT-OP-M Strength Start: 02/11/24 17:55 Freq: Status: Active Protocol: Document 02/12/24 09:06 [facility] (Rec: 02/12/24 09:49 [facility] [id number]) Hip Strength Hip Manual Muscle Testing Right Flexion (L2) 3+ Fair+ External Rotation 4- Good- Internal Rotation 3+ Fair+ Left Flexion (L2) 3+ Fair+ External Rotation 3 Fair Internal Rotation 3 Fair Knee Strength Knee Manual Muscle Testing Right Flexion (S2) 4- Good- Extension (L3) 4+ Good+ Left Flexion (S2) 4- Good- Extension (L3) 4 Good Ankle/Foot Strength Ankle and Foot Manual Muscle Testing Right Dorsiflexion (L4) 4 Good Plantarflexion (S1) 5 Normal Left Dorsiflexion (L4) 4 Good Plantarflexion (S1) 4 Good Comments PF tested seated B PT-OP-Q Treatments Start: 02/11/24 17:55 Freq: Status: Active Protocol: Document 03/31/24 08:14 [facility] (Rec: 03/31/24 12:55 [facility] [id number]) Therapeutic Exercises Supine Exercises abdominal bracing with LE extension Supine Exercise Name HEP Side bilateral Reps/Minutes X5 Comments verbal cues to brace as LE moves away from core piriformis and figure 4 Side right Reps/Minutes 40 to 60 seconds X 2 each stretch HS stretch Supine Exercise Name HS stretch Side bilateral Equipment Used towel/strap Reps/Minutes one minute X2 each LE Comments with AROM knee flexion X 10 each stretch BKFO Supine Exercise Name BKFO Comments Cues for core stabilization modified Robson stretch Supine Exercise Name Left LE on bolster right LE on mat Side right Reps/Minutes 60 sec X 1 Comments assist for LE positioning Sitting Exercises march Side bilateral Equipment Used Lvl 4 HEP to level 4 Reps/Minutes X10 hip abd Side bilateral Equipment Used level 4 band HEP to level 4 Reps/Minutes 1 min hold then 10 reps X2 Standing Exercises standing hip extension Standing Exercise Name resting on 2 pillows on mat at counter height Side bilateral Reps/Minutes X10 Manual Therapy Treatment Consent Patient gave verbal consent for manual Yes treatment Soft Tissue Mobilization right hip flexor at groint Mobilization Type Cross-Friction,Rolling Intensity/Depth Moderate Body Position Hooklying Comments Moderate to superficial right piriformis/gluteal area Body Location R glute medius Mobilization Type Cross-Friction,Rolling, Sustained Pressure Intensity/Depth Moderate Body Position Sidelying Comments pillow between knees LS area Body Location R>L LS paraspinals, QL Mobilization Type Rolling,Sustained Pressure Intensity/Depth Moderate Body Position Sidelying Manual Techniques MET for right AI left PI Type and pubic shot gun, modified AI PI MET to seated Reps/Duration 6 X 6 seconds each Comments unable to perform AI PI MET hooklying PT-OP-T Assessment and Plan Start: 02/11/24 17:55 Freq: Status: Active Protocol: Document 03/31/24 08:14 [facility] (Rec: 03/31/24 12:55 [facility] [id number]) Physical Therapy Assessment Goals Walking tolerance Supervisor Train Operations Goal (LTG) Pt will be able to safely ambulate with SPC and report ability to walk home with SPC 03/24-no change LTG Duration 04/08/2024 Gait Impairment Gait tolerance Short Term Goal (STG) Pt will be able to complete the 6 min walk achieving 600 ft with SPC only 1 standing rest break to inc activity tolerance 03/24-515ft w/SPC w/1 standing rest break STG Duration 04/03 Supervisor Train Operations Goal (LTG) Pt will be able to complete the 6 min walk achieving 800 ft with SPC taking no standing rest breaks and no inc in pain from baseline LTG Duration 05/06/2024 Balance Impairment Balance Supervisor Train Operations Goal (LTG) Pt will inc Tinetti balance assessment score from 2028 to 24 to increase balance and gait for functional activity tolerance and dec fall risk 03/24- LTG Duration 05/06/2024 Assessment Summary Assessment Patient reports having less pain end of session, progressed to level 4 band for seated marching and hip flexion, and added abdominal bracing with LE extension to HEP. Physical Therapy Plan Frequency and Duration Frequency of Treatment 2x/Week Duration of treatment (weeks) 12 Plan of Care Start Date 02/12/24 Plan of Care End Date 05/06/24 Next Visit Focus/Plan Next Note Type Treatment Note Next Visit Plan cont to advance core and hip strength exercises and balance activities;manual to help knee and back/leg pain
--- NOTE | 2024-04-03 12:12 | PT.OTN ---
Current Diagnoses Pain in right knee (04/03/24) Pain in left knee (04/03/24) Low back pain, unspecified (04/03/24) Difficulty in walking, not elsewhere classified (04/03/24) Other abnormalities of gait and mobility (04/03/24) Weakness (04/03/24) Physical Therapy Treatment Note PT-OP-A Visit Information Start: 02/11/24 17:55 Freq: Status: Active Protocol: Document 04/03/24 08:14 AB (Rec: 04/03/24 12:12 AB [id number]) Out-Patient Physical Therapy Visit Information Visit Information Visit Type Treatment Note Visit Note 11/10 Access Code: [email or web address] Visit Start Time 09:47 Visit Stop Time 10:30 Visit Number 12 Number of RADIO REPAIRER Visits 2 PT-OP-B Current Condition Start: 02/11/24 17:55 Freq: Status: Active Protocol: Document 02/12/24 09:06 [facility] (Rec: 02/12/24 09:49 [facility] [id number]) Current Condition History of Current Condition Current Complaints back pain History of Current Condition Pt reports he saw ortho yesterday who gave him a shot which has helped. He was told to take it easy.. In December, he fell and was in hospital for a week and went ot [facility] about 3 weeks and reports those beds are awful. He has chronic back pain also and notes arthritis. Pt walks w/4WW and will sit in chair as needed. He also rides his stationary bike. He uses a 4WW in the home. Pain getting worse since December until yesterday. He has had injections in the past and they help for a few months. He has been getting injections for the past year. 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 L one flips out on me and that is how he fell. Uses SPC when leaving the house as walker hard to get into the car. Pt has several low steps w/rail to get into the house. Lives w/. They have a cleaning lady. He has arms on the toilets to get off of them and higher toilet. Grab bar in the shower and chair. Pt reports in the past year, has hd 2 falls d/t LLE giving out. Has a bulky knee brace but its dificult to use. Sleeps well. Side sleepr w/ pillow btwn legs. Around the house uses FWW and uses 4WW outside. Prior Treatments and Tests November 2021 MRI: IMPRESSION: 1. There is a severe subacute L1 compression fracture. Cannot exclude a pathologic fracture. Consider further evaluation with CT. There is mild canal stenosis at T12-L1 secondary to mild posterior bony retropulsion. 2. Patient has underlying short pedicles. 3. 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 4. Multilevel facet arthropathy. 5. Multilevel foraminal narrowing as described above. Treatment Goals Patient/Caregiver Goals Get stronger in back and legs; feel more confident w/walking and feel like he could use the cane more often PT-OP-C Subjective Start: 02/11/24 17:55 Freq: Status: Active Protocol: Document 04/03/24 08:14 AB (Rec: 04/03/24 12:12 [id number]) OP-PT Subjective Patient Comments Patient Comments Patient reports he is in pain, dropped something on left foot and has the foot wrapped due bleeding and also knocked glassed under couch and had to get down to reach them. Patient rates back pain 5/10 start of session. Patient reports he will not have another injection. PT-OP-E Functional Tests Start: 02/11/24 17:55 Freq: Status: Active Protocol: Document 03/24/24 09:50 [facility] (Rec: 03/24/24 10:32 [facility] [id number]) Functional Tests 6 Minute Walk Test Distance 515ft Device Used spc Comments SBA; 1 -10 sec standing rest break Tinetti Balance and Gait Assessment Balance Score 12 Gait Score 13 Composite Score 22 PT-OP-G Mobility & Gait Start: 02/11/24 17:55 Freq: Status: Active Protocol: Document 02/12/24 09:06 [facility] (Rec: 02/12/24 09:49 [facility] [id number]) OP Gait Assessment Comments Gait Comments lat leaning w/gait and slow speed and WBOS; use of SPC PT-OP-J Posture/Palpation/Skin Start: 02/11/24 17:55 Freq: Status: Active Protocol: Document 02/12/24 09:06 [facility] (Rec: 02/12/24 09:49 [facility] [id number]) Posture Evaluation Comments Posture Comments L shoulder elevation; WBOS, fwd head, inc kyphosis, R pelvic shear, rot L PT-OP-M Strength Start: 02/11/24 17:55 Freq: Status: Active Protocol: Document 02/12/24 09:06 [facility] (Rec: 02/12/24 09:49 [facility] [id number]) Hip Strength Hip Manual Muscle Testing Right Flexion (L2) 3+ Fair+ External Rotation 4- Good- Internal Rotation 3+ Fair+ Left Flexion (L2) 3+ Fair+ External Rotation 3 Fair Internal Rotation 3 Fair Knee Strength Knee Manual Muscle Testing Right Flexion (S2) 4- Good- Extension (L3) 4+ Good+ Left Flexion (S2) 4- Good- Extension (L3) 4 Good Ankle/Foot Strength Ankle and Foot Manual Muscle Testing Right Dorsiflexion (L4) 4 Good Plantarflexion (S1) 5 Normal Left Dorsiflexion (L4) 4 Good Plantarflexion (S1) 4 Good Comments PF tested seated B PT-OP-Q Treatments Start: 02/11/24 17:55 Freq: Status: Active Protocol: Document 04/03/24 08:14 AB (Rec: 04/03/24 12:12 AB [id number]) Therapeutic Exercises Supine Exercises abdominal bracing with LE extension Supine Exercise Name HEP Side bilateral Reps/Minutes X5 Comments verbal cues to brace as LE moves away from core piriformis and figure 4 Side right Reps/Minutes 40 to 60 seconds X 2 each stretch modified Robson stretch Side bilateral Reps/Minutes 40-50 sec X 2 LTR Side bilateral Reps/Minutes 10 Comments Verbal cues to perform in pain free range Standing Exercises Pallof press Resistance level one band Reps/Minutes [id number] standing hip extension Standing Exercise Name resting at counter height Side bilateral Reps/Minutes X10 Comments VC to decrease height of lift Manual Therapy Treatment Consent Patient gave verbal consent for manual Yes treatment Soft Tissue Mobilization right hip flexor at groint Mobilization Type Cross-Friction,Rolling Intensity/Depth Moderate Body Position Hooklying Comments Moderate to superficial right piriformis/gluteal area Body Location R glute /piriformis Mobilization Type Cross-Friction,Rolling, Sustained Pressure Intensity/Depth Moderate Body Position Sidelying Comments pillow between knees LS area Body Location right QL and lumbar paraspinals Mobilization Type Rolling,Sustained Pressure Body Position Sidelying PT-OP-T Assessment and Plan Start: 02/11/24 17:55 Freq: Status: Active Protocol: Document 04/03/24 08:14 AB (Rec: 04/03/24 12:12 AB [id number]) Physical Therapy Assessment Goals Walking tolerance Residential Goal (LTG) Pt will be able to safely ambulate with SPC and report ability to walk home with SPC 03/24-no change LTG Duration 04/08/2024 Gait Impairment Gait tolerance Short Term Goal (STG) Pt will be able to complete the 6 min walk achieving 600 ft with SPC only 1 standing rest break to inc activity tolerance 03/24-515ft w/SPC w/1 standing rest break STG Duration 04/03 Residential Goal (LTG) Pt will be able to complete the 6 min walk achieving 800 ft with SPC taking no standing rest breaks and no inc in pain from baseline LTG Duration 05/06/2024 Balance Impairment Balance River Rafting Guide Goal (LTG) Pt will inc Tinetti balance assessment score from to to increase balance and gait for functional activity tolerance and dec fall risk 03/24- LTG Duration 05/06/2024 Assessment Summary Assessment Patient reports increased back pain post second set of Pallof press Physical Therapy Plan Frequency and Duration Frequency of Treatment 2x/Week Duration of treatment (weeks) 12 Plan of Care Start Date 02/12/24 Plan of Care End Date 05/06/24 Next Visit Focus/Plan Next Note Type Treatment Note Next Visit Plan cont to advance core and hip strength exercises and balance activities;manual to help knee and back/leg pain Possibly focus on balance next session
--- NOTE | 2024-04-07 10:13 | PT.OTN ---
Current Diagnoses Pain in right knee (04/07/24) Pain in left knee (04/07/24) Low back pain, unspecified (04/07/24) Difficulty in walking, not elsewhere classified (04/07/24) Other abnormalities of gait and mobility (04/07/24) Weakness (04/07/24) Physical Therapy Treatment Note PT-OP-A Visit Information Start: 02/11/24 17:55 Freq: Status: Active Protocol: Document 04/07/24 09:06 [facility] (Rec: 04/07/24 10:13 [facility] [id number]) Out-Patient Physical Therapy Visit Information Visit Information Visit Type Treatment Note Visit Note 12/11 Access Code: [email or web address] Visit Start Time 09:07 Visit Stop Time 09:45 Visit Number 13 Number of CANCER CENTER DIRECTOR Visits 0 PT-OP-B Current Condition Start: 02/11/24 17:55 Freq: Status: Active Protocol: Document 02/12/24 09:06 [facility] (Rec: 02/12/24 09:49 [facility] [id number]) Current Condition History of Current Condition Current Complaints back pain History of Current Condition Pt reports he saw ortho yesterday who gave him a shot which has helped. He was told to take it easy.. In December, he fell and was in hospital for a week and went ot [facility] about 3 weeks and reports those beds are awful. He has chronic back pain also and notes arthritis. Pt walks w/4WW and will sit in chair as needed. He also rides his stationary bike. He uses a 4WW in the home. Pain getting worse since December until yesterday. He has had injections in the past and they help for a few months. He has been getting injections for the past year. 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 L one flips out on me and that is how he fell. Uses SPC when leaving the house as walker hard to get into the car. Pt has several low steps w/rail to get into the house. Lives w/. They have a cleaning lady. He has arms on the toilets to get off of them and higher toilet. Grab bar in the shower and chair. Pt reports in the past year, has hd 2 falls d/t LLE giving out. Has a bulky knee brace but its dificult to use. Sleeps well. Side sleepr w/ pillow btwn legs. Around the house uses FWW and uses 4WW outside. Prior Treatments and Tests November 2021 MRI: IMPRESSION: 1. There is a severe subacute L1 compression fracture. Cannot exclude a pathologic fracture. Consider further evaluation with CT. There is mild canal stenosis at T12-L1 secondary to mild posterior bony retropulsion. 2. Patient has underlying short pedicles. 3. 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 4. Multilevel facet arthropathy. 5. Multilevel foraminal narrowing as described above. Treatment Goals Patient/Caregiver Goals Get stronger in back and legs; feel more confident w/walking and feel like he could use the cane more often PT-OP-C Subjective Start: 02/11/24 17:55 Freq: Status: Active Protocol: Document 04/07/24 09:06 [facility] (Rec: 04/07/24 10:13 [facility] [id number]) OP-PT Subjective Patient Comments Patient Comments Pt notes he feels more stable at home since working w/PT and doesn't ahve to use the walker as much PT-OP-E Functional Tests Start: 02/11/24 17:55 Freq: Status: Active Protocol: Document 03/24/24 09:50 [facility] (Rec: 03/24/24 10:32 [facility] [id number]) Functional Tests 6 Minute Walk Test Distance 515ft Device Used spc Comments SBA; 1 -10 sec standing rest break Tinetti Balance and Gait Assessment Balance Score 12 Gait Score 13 Composite Score 22 PT-OP-G Mobility & Gait Start: 02/11/24 17:55 Freq: Status: Active Protocol: Document 02/12/24 09:06 [facility] (Rec: 02/12/24 09:49 [facility] [id number]) OP Gait Assessment Comments Gait Comments lat leaning w/gait and slow speed and WBOS; use of SPC PT-OP-J Posture/Palpation/Skin Start: 02/11/24 17:55 Freq: Status: Active Protocol: Document 02/12/24 09:06 [facility] (Rec: 02/12/24 09:49 [facility] [id number]) Posture Evaluation Comments Posture Comments L shoulder elevation; WBOS, fwd head, inc kyphosis, R pelvic shear, rot L PT-OP-M Strength Start: 02/11/24 17:55 Freq: Status: Active Protocol: Document 02/12/24 09:06 [facility] (Rec: 02/12/24 09:49 [facility] [id number]) Hip Strength Hip Manual Muscle Testing Right Flexion (L2) 3+ Fair+ External Rotation 4- Good- Internal Rotation 3+ Fair+ Left Flexion (L2) 3+ Fair+ External Rotation 3 Fair Internal Rotation 3 Fair Knee Strength Knee Manual Muscle Testing Right Flexion (S2) 4- Good- Extension (L3) 4+ Good+ Left Flexion (S2) 4- Good- Extension (L3) 4 Good Ankle/Foot Strength Ankle and Foot Manual Muscle Testing Right Dorsiflexion (L4) 4 Good Plantarflexion (S1) 5 Normal Left Dorsiflexion (L4) 4 Good Plantarflexion (S1) 4 Good Comments PF tested seated B PT-OP-Q Treatments Start: 02/11/24 17:55 Freq: Status: Active Protocol: Document 04/07/24 09:06 [facility] (Rec: 04/07/24 10:13 [facility] [id number]) Therapeutic Exercises Sitting Exercises DF Side bilateral Equipment Used lvl 3 Reps/Minutes 20 ea hip abd Side bilateral Equipment Used lvl 3 Reps/Minutes 20 Standing Exercises step up Side bilateral Equipment Used 4 in step and rail Reps/Minutes 10 ea heel raises Side bilateral Reps/Minutes 20 Pallof press Resistance level one band Reps/Minutes 20 ea Comments cues for posture Manual Therapy Treatment Consent Patient gave verbal consent for manual Yes treatment Soft Tissue Mobilization ITB Body Location R Mobilization Type Rolling Intensity/Depth Moderate Body Position Sidelying right piriformis/gluteal area Body Location R glute /piriformis Mobilization Type Cross-Friction,Rolling, Sustained Pressure Intensity/Depth Moderate Body Position Sidelying Comments pillow between knees LS area Body Location right QL and lumbar paraspinals Mobilization Type Rolling,Sustained Pressure Body Position Sidelying Neuro Re-Education Treatment Balance Activities hurdles Equipment 6 hurdles Comments 1. fwd step to over w/rail prn x2 2. fwd recip w/1 finger on rail x2 3. side step B x1 ea direaction SLS Details alt toe taps to 5 in step Reps/Duration 10B PT-OP-T Assessment and Plan Start: 02/11/24 17:55 Freq: Status: Active Protocol: Document 04/07/24 09:06 [facility] (Rec: 04/07/24 10:13 [facility] [id number]) Physical Therapy Assessment Goals Walking tolerance Building Inspector Goal (LTG) Pt will be able to safely ambulate with SPC and report ability to walk home with SPC 03/24-no change LTG Duration 04/08/2024 Gait Impairment Gait tolerance Short Term Goal (STG) Pt will be able to complete the 6 min walk achieving 600 ft with SPC only 1 standing rest break to inc activity tolerance 03/24-515ft w/SPC w/1 standing rest break STG Duration 04/03 Building Inspector Goal (LTG) Pt will be able to complete the 6 min walk achieving 800 ft with SPC taking no standing rest breaks and no inc in pain from baseline LTG Duration 05/06/2024 Balance Impairment Balance Building Inspector Goal (LTG) Pt will inc Tinetti balance assessment score from to to increase balance and gait for functional activity tolerance and dec fall risk 03/24- LTG Duration 05/06/2024 Assessment Summary Assessment Pt did well with exercises w/ cues needed for posture and positioning. cues need w/step up for wt shift into LE and glute activation to improve performance. Physical Therapy Plan Frequency and Duration Frequency of Treatment 2x/Week Duration of treatment (weeks) 12 Plan of Care Start Date 02/12/24 Plan of Care End Date 05/06/24 Next Visit Focus/Plan Next Note Type Treatment Note Next Visit Plan cont to advance core and hip strength exercises and balance activities;manual to help knee and back/leg pain
--- NOTE | 2024-04-10 12:48 | PT.OTN ---
Current Diagnoses Pain in right knee (04/10/24) Pain in left knee (04/10/24) Low back pain, unspecified (04/10/24) Difficulty in walking, not elsewhere classified (04/10/24) Other abnormalities of gait and mobility (04/10/24) Weakness (04/10/24) Physical Therapy Treatment Note PT-OP-A Visit Information Start: 02/11/24 17:55 Freq: Status: Active Protocol: Document 04/10/24 09:02 AB (Rec: 04/10/24 12:48 AB [id number]) Out-Patient Physical Therapy Visit Information Visit Information Visit Type Treatment Note Visit Note 01/10 Access Code: [email or web address] Visit Start Time 09:48 Visit Stop Time 10:32 Visit Number 14 Number of MARKETING PLANNER Visits 1 PT-OP-B Current Condition Start: 02/11/24 17:55 Freq: Status: Active Protocol: Document 02/12/24 09:06 [facility] (Rec: 02/12/24 09:49 [facility] [id number]) Current Condition History of Current Condition Current Complaints back pain History of Current Condition Pt reports he saw ortho yesterday who gave him a shot which has helped. He was told to take it easy.. In December, he fell and was in hospital for a week and went ot [facility] about 3 weeks and reports those beds are awful. He has chronic back pain also and notes arthritis. Pt walks w/4WW and will sit in chair as needed. He also rides his stationary bike. He uses a 4WW in the home. Pain getting worse since December until yesterday. He has had injections in the past and they help for a few months. He has been getting injections for the past year. 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 L one flips out on me and that is how he fell. Uses SPC when leaving the house as walker hard to get into the car. Pt has several low steps w/rail to get into the house. Lives w/. They have a cleaning lady. He has arms on the toilets to get off of them and higher toilet. Grab bar in the shower and chair. Pt reports in the past year, has hd 2 falls d/t LLE giving out. Has a bulky knee brace but its dificult to use. Sleeps well. Side sleepr w/ pillow btwn legs. Around the house uses FWW and uses 4WW outside. Prior Treatments and Tests November 2021 MRI: IMPRESSION: 1. There is a severe subacute L1 compression fracture. Cannot exclude a pathologic fracture. Consider further evaluation with CT. There is mild canal stenosis at T12-L1 secondary to mild posterior bony retropulsion. 2. Patient has underlying short pedicles. 3. 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 4. Multilevel facet arthropathy. 5. Multilevel foraminal narrowing as described above. 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 PT-OP-E Functional Tests Start: 02/11/24 17:55 Freq: Status: Active Protocol: Document 03/24/24 09:50 [facility] (Rec: 03/24/24 10:32 [facility] [id number]) Functional Tests 6 Minute Walk Test Distance 515ft Device Used spc Comments SBA; 1 -10 sec standing rest break Tinetti Balance and Gait Assessment Balance Score 12 Gait Score 13 Composite Score 22 PT-OP-G Mobility & Gait Start: 02/11/24 17:55 Freq: Status: Active Protocol: Document 02/12/24 09:06 [facility] (Rec: 02/12/24 09:49 [facility] [id number]) OP Gait Assessment Comments Gait Comments lat leaning w/gait and slow speed and WBOS; use of SPC PT-OP-J Posture/Palpation/Skin Start: 02/11/24 17:55 Freq: Status: Active Protocol: Document 02/12/24 09:06 [facility] (Rec: 02/12/24 09:49 [facility] [id number]) Posture Evaluation Comments Posture Comments L shoulder elevation; WBOS, fwd head, inc kyphosis, R pelvic shear, rot L PT-OP-M Strength Start: 02/11/24 17:55 Freq: Status: Active Protocol: Document 02/12/24 09:06 [facility] (Rec: 02/12/24 09:49 [facility] [id number]) Hip Strength Hip Manual Muscle Testing Right Flexion (L2) 3+ Fair+ External Rotation 4- Good- Internal Rotation 3+ Fair+ Left Flexion (L2) 3+ Fair+ External Rotation 3 Fair Internal Rotation 3 Fair Knee Strength Knee Manual Muscle Testing Right Flexion (S2) 4- Good- Extension (L3) 4+ Good+ Left Flexion (S2) 4- Good- Extension (L3) 4 Good Ankle/Foot Strength Ankle and Foot Manual Muscle Testing Right Dorsiflexion (L4) 4 Good Plantarflexion (S1) 5 Normal Left Dorsiflexion (L4) 4 Good Plantarflexion (S1) 4 Good Comments PF tested seated B PT-OP-Q Treatments Start: 02/11/24 17:55 Freq: Status: Active Protocol: Document 04/10/24 09:02 AB (Rec: 04/10/24 12:48 AB [id number]) Therapeutic Exercises Supine Exercises piriformis and figure 4 Side right Reps/Minutes 40 to 60 seconds X 2 each stretch modified Robson stretch Side bilateral Reps/Minutes 30-40 sec X 2 Standing Exercises mini squat Side bilateral Reps/Minutes X5 Comments verbal cues for hip hinge sit to stand Standing Exercise Name with UE use trial of stagger stance Side bilateral Reps/Minutes X2 Comments Increased effor to perform task Therapeutic Activity Therapeutic Activity self MET Name for right AI left PI and pubic shot gun Reps/Minutes 6X6 seconds each Comments verbal cues and written instructions given lift from floor Name towel roll ( to mimic dog food bowl) using FWW and mat at counter height Reps/Minutes X1 with FWW X5 with varying combinations of LE and UE positioning Comments bilateral squat with right UE/ forearm on mat at counter height steadiest position. Manual Therapy Treatment Soft Tissue Mobilization right hip flexor at groint Mobilization Type Cross-Friction,Rolling Intensity/Depth Moderate Body Position Hooklying Comments Moderate to superficial right piriformis/gluteal area Body Location R glute /piriformis Lumbar paraspinals Mobilization Type Cross-Friction,Rolling, Sustained Pressure Intensity/Depth Moderate Body Position Sidelying Comments pillow between knees PT-OP-T Assessment and Plan Start: 02/11/24 17:55 Freq: Status: Active Protocol: Document 04/10/24 09:02 AB (Rec: 04/10/24 12:48 AB [id number]) Physical Therapy Assessment Goals Walking tolerance Advanced Practice Registered Nurse Goal (LTG) Pt will be able to safely ambulate with SPC and report ability to walk home with SPC 03/24-no change LTG Duration 04/08/2024 Gait Impairment Gait tolerance Short Term Goal (STG) Pt will be able to complete the 6 min walk achieving 600 ft with SPC only 1 standing rest break to inc activity tolerance 03/24-515ft w/SPC w/1 standing rest break STG Duration 04/03 Assisted Goal (LTG) Pt will be able to complete the 6 min walk achieving 800 ft with SPC taking no standing rest breaks and no inc in pain from baseline LTG Duration 05/06/2024 Balance Impairment Balance Assisted Goal (LTG) Pt will inc Tinetti balance assessment score from to to increase balance and gait for functional activity tolerance and dec fall risk 03/24- LTG Duration 05/06/2024 Assessment Summary Assessment Patient reported feeling dizzy post supine to sit end of session. 112/69 HR 85 BPM, Patient reports he has not been drinking much water when questioned. Patient given 1/2 cup of water. Prior to leaving clinic patient reported no pain, and no longer dizzy. Physical Therapy Plan Frequency and Duration Frequency of Treatment 2x/Week Duration of treatment (weeks) 12 Plan of Care Start Date 02/12/24 Plan of Care End Date 05/06/24 Next Visit Focus/Plan Next Note Type Treatment Note Next Visit Plan cont to advance core and hip strength exercises and balance activities;manual to help knee and back/leg pain
--- NOTE | 2024-04-14 12:44 | PT.OTN ---
Current Diagnoses Pain in right knee (04/14/24) Pain in left knee (04/14/24) Low back pain, unspecified (04/14/24) Difficulty in walking, not elsewhere classified (04/14/24) Other abnormalities of gait and mobility (04/14/24) Weakness (04/14/24) Physical Therapy Treatment Note PT-OP-A Visit Information Start: 02/11/24 17:55 Freq: Status: Active Protocol: Document 04/14/24 08:05 AB (Rec: 04/14/24 12:44 AB [id number]) Out-Patient Physical Therapy Visit Information Visit Information Visit Type Treatment Note Visit Note 02/10 Access Code: [email or web address] Visit Start Time 09:48 Visit Stop Time 10:30 Visit Number 15 Number of WOOD WEB WEAVING MACHINE OPERATOR Visits 2 PT-OP-B Current Condition Start: 02/11/24 17:55 Freq: Status: Active Protocol: Document 02/12/24 09:06 [facility] (Rec: 02/12/24 09:49 [facility] [id number]) Current Condition History of Current Condition Current Complaints back pain History of Current Condition Pt reports he saw ortho yesterday who gave him a shot which has helped. He was told to take it easy.. In December, he fell and was in hospital for a week and went ot [facility] about 3 weeks and reports those beds are awful. He has chronic back pain also and notes arthritis. Pt walks w/4WW and will sit in chair as needed. He also rides his stationary bike. He uses a 4WW in the home. Pain getting worse since December until yesterday. He has had injections in the past and they help for a few months. He has been getting injections for the past year. 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 L one flips out on me and that is how he fell. Uses SPC when leaving the house as walker hard to get into the car. Pt has several low steps w/rail to get into the house. Lives w/. They have a cleaning lady. He has arms on the toilets to get off of them and higher toilet. Grab bar in the shower and chair. Pt reports in the past year, has hd 2 falls d/t LLE giving out. Has a bulky knee brace but its dificult to use. Sleeps well. Side sleepr w/ pillow btwn legs. Around the house uses FWW and uses 4WW outside. Prior Treatments and Tests November 2021 MRI: IMPRESSION: 1. There is a severe subacute L1 compression fracture. Cannot exclude a pathologic fracture. Consider further evaluation with CT. There is mild canal stenosis at T12-L1 secondary to mild posterior bony retropulsion. 2. Patient has underlying short pedicles. 3. 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 4. Multilevel facet arthropathy. 5. Multilevel foraminal narrowing as described above. Treatment Goals Patient/Caregiver Goals Get stronger in back and legs; feel more confident w/walking and feel like he could use the cane more often PT-OP-C Subjective Start: 02/11/24 17:55 Freq: Status: Active Protocol: Document 04/14/24 08:05 AB (Rec: 04/14/24 12:44 AB [id number]) OP-PT Subjective Patient Comments Patient Comments Seated BP left UE unable ie Error X 3 trials right UE seated, unable x trial with machines. 2 machines used. Patient reports feeling fine. 124/70 taken manually right UE patient seated, PT-OP-E Functional Tests Start: 02/11/24 17:55 Freq: Status: Active Protocol: Document 03/24/24 09:50 [facility] (Rec: 03/24/24 10:32 [facility] [id number]) Functional Tests 6 Minute Walk Test Distance 515ft Device Used spc Comments SBA; 1 -10 sec standing rest break Tinetti Balance and Gait Assessment Balance Score 12 Gait Score 13 Composite Score 22 PT-OP-G Mobility & Gait Start: 02/11/24 17:55 Freq: Status: Active Protocol: Document 02/12/24 09:06 [facility] (Rec: 02/12/24 09:49 [facility] [id number]) OP Gait Assessment Comments Gait Comments lat leaning w/gait and slow speed and WBOS; use of SPC PT-OP-J Posture/Palpation/Skin Start: 02/11/24 17:55 Freq: Status: Active Protocol: Document 02/12/24 09:06 [facility] (Rec: 02/12/24 09:49 [facility] [id number]) Posture Evaluation Comments Posture Comments L shoulder elevation; WBOS, fwd head, inc kyphosis, R pelvic shear, rot L PT-OP-M Strength Start: 02/11/24 17:55 Freq: Status: Active Protocol: Document 02/12/24 09:06 [facility] (Rec: 02/12/24 09:49 [facility] [id number]) Hip Strength Hip Manual Muscle Testing Right Flexion (L2) 3+ Fair+ External Rotation 4- Good- Internal Rotation 3+ Fair+ Left Flexion (L2) 3+ Fair+ External Rotation 3 Fair Internal Rotation 3 Fair Knee Strength Knee Manual Muscle Testing Right Flexion (S2) 4- Good- Extension (L3) 4+ Good+ Left Flexion (S2) 4- Good- Extension (L3) 4 Good Ankle/Foot Strength Ankle and Foot Manual Muscle Testing Right Dorsiflexion (L4) 4 Good Plantarflexion (S1) 5 Normal Left Dorsiflexion (L4) 4 Good Plantarflexion (S1) 4 Good Comments PF tested seated B PT-OP-Q Treatments Start: 02/11/24 17:55 Freq: Status: Active Protocol: Document 04/14/24 08:05 AB (Rec: 04/14/24 12:44 AB [id number]) Therapeutic Exercises Sitting Exercises march Side bilateral Equipment Used Lvl 4 HEP to level 4 Reps/Minutes X10 hip abd Equipment Used level 4 band to HEP Reps/Minutes one minute X 1 X15 Standing Exercises mini squat Side bilateral Reps/Minutes X10 Comments verbal cues for hip hinge heel raises Side bilateral Reps/Minutes 20 sidesteps Side bilateral Equipment Used level 4 band Reps/Minutes 10 ft X 2ea left and right Neuro Re-Education Treatment Balance Activities hurdles Equipment 6 hurdles Reps/Duration 10 feet X 4 Comments CGA initiates with hands above bars blue cushion Comments initiated, but unable, reports knee pain tandem stepping Details hands above bars CGA Surface floor Reps/Duration 10 feet X 6 foam Details marching Surface blue foam Comments cga hands above bars PT-OP-T Assessment and Plan Start: 02/11/24 17:55 Freq: Status: Active Protocol: Document 04/14/24 08:05 AB (Rec: 04/14/24 12:44 AB [id number]) Physical Therapy Assessment Goals Walking tolerance Chlorine Plant Operator Goal (LTG) Pt will be able to safely ambulate with SPC and report ability to walk home with SPC 03/24-no change LTG Duration 04/08/2024 Gait Impairment Gait tolerance Short Term Goal (STG) Pt will be able to complete the 6 min walk achieving 600 ft with SPC only 1 standing rest break to inc activity tolerance 03/24-515ft w/SPC w/1 standing rest break STG Duration 04/03 Custodial Goal (LTG) Pt will be able to complete the 6 min walk achieving 800 ft with SPC taking no standing rest breaks and no inc in pain from baseline LTG Duration 05/06/2024 Balance Impairment Balance Custodial Goal (LTG) Pt will inc Tinetti balance assessment score from to to increase balance and gait for functional activity tolerance and dec fall risk 03/24- LTG Duration 05/06/2024 Assessment Summary Assessment Pt reports back pain is the same 02/10 end of session. progressed to Blue level 4 band for side stepping and seated hip abduction this session. Physical Therapy Plan Frequency and Duration Frequency of Treatment 2x/Week Duration of treatment (weeks) 12 Plan of Care Start Date 02/12/24 Plan of Care End Date 05/06/24 Next Visit Focus/Plan Next Note Type Treatment Note Next Visit Plan cont to advance core and hip strength exercises and balance activities;manual to help knee and back/leg pain
--- NOTE | 2024-04-21 10:32 | PT.OTN ---
Current Diagnoses Pain in right knee (04/21/24) Pain in left knee (04/21/24) Low back pain, unspecified (04/21/24) Difficulty in walking, not elsewhere classified (04/21/24) Other abnormalities of gait and mobility (04/21/24) Weakness (04/21/24) Physical Therapy Treatment Note PT-OP-A Visit Information Start: 02/11/24 17:55 Freq: Status: Active Protocol: Document 04/21/24 09:54 SP (Rec: 04/21/24 10:34 SP [id number]) Out-Patient Physical Therapy Visit Information Visit Information Visit Type Treatment Note Visit Note 03/12 post PN Visit Start Time 09:54 Visit Stop Time 10:32 Visit Number 16 Number of AMERICAN INDIAN STUDIES PROFESSOR 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 He was told to take it easy.. In December, he fell and was in hospital for a week and went ot [facility] about 3 weeks and reports those beds are awful. He has chronic back pain also and notes arthritis. Pt walks w/4WW and will sit in chair as needed. He also rides his stationary bike. He uses a 4WW in the home. Pain getting worse since December until yesterday. He has had injections in the past and they help for a few months. He has been getting injections for the past year. 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 L one flips out on me and that is how he fell. Uses SPC when leaving the house as walker hard to get into the car. Pt has several low steps w/rail to get into the house. Lives w/. They have a cleaning lady. He has arms on the toilets to get off of them and higher toilet. Grab bar in the shower and chair. Pt reports in the past year, has hd 2 falls d/t LLE giving out. Has a bulky knee brace but its dificult to use. Sleeps well. Side sleepr w/ pillow btwn legs. Around the house uses FWW and uses 4WW outside. Prior Treatments and Tests November 2021 MRI: IMPRESSION: 1. There is a severe subacute L1 compression fracture. Cannot exclude a pathologic fracture. Consider further evaluation with CT. There is mild canal stenosis at T12-L1 secondary to mild posterior bony retropulsion. 2. Patient has underlying short pedicles. 3. 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 4. Multilevel facet arthropathy. 5. Multilevel foraminal narrowing as described above. Treatment Goals Patient/Caregiver Goals Get stronger in back and legs; feel more confident w/walking and feel like he could use the cane more often PT-OP-C Subjective Start: 02/11/24 17:55 Freq: Status: Active Protocol: Document 04/21/24 09:54 SP (Rec: 04/21/24 10:34 SP [id number]) OP-PT Subjective Patient Comments Patient Comments Pt reports low back about 9/10 pain at arrival today. No more pain after tx just tiring from activity after PT txs. Taking a diuretic and noticing dry mouth but seeing swelling reduction in B ankles. PT-OP-E Functional Tests Start: 02/11/24 17:55 Freq: Status: Active Protocol: Document 03/24/24 09:50 [facility] (Rec: 03/24/24 10:32 [facility] [id number]) Functional Tests 6 Minute Walk Test Distance 515ft Device Used spc Comments SBA; 1 -10 sec standing rest break Tinetti Balance and Gait Assessment Balance Score 12 Gait Score 13 Composite Score 22 PT-OP-G Mobility & Gait Start: 02/11/24 17:55 Freq: Status: Active Protocol: Document 02/12/24 09:06 [facility] (Rec: 02/12/24 09:49 [facility] [id number]) OP Gait Assessment Comments Gait Comments lat leaning w/gait and slow speed and WBOS; use of SPC PT-OP-J Posture/Palpation/Skin Start: 02/11/24 17:55 Freq: Status: Active Protocol: Document 02/12/24 09:06 [facility] (Rec: 02/12/24 09:49 [facility] [id number]) Posture Evaluation Comments Posture Comments L shoulder elevation; WBOS, fwd head, inc kyphosis, R pelvic shear, rot L PT-OP-M Strength Start: 02/11/24 17:55 Freq: Status: Active Protocol: Document 02/12/24 09:06 [facility] (Rec: 02/12/24 09:49 [facility] [id number]) Hip Strength Hip Manual Muscle Testing Right Flexion (L2) 3+ Fair+ External Rotation 4- Good- Internal Rotation 3+ Fair+ Left Flexion (L2) 3+ Fair+ External Rotation 3 Fair Internal Rotation 3 Fair Knee Strength Knee Manual Muscle Testing Right Flexion (S2) 4- Good- Extension (L3) 4+ Good+ Left Flexion (S2) 4- Good- Extension (L3) 4 Good Ankle/Foot Strength Ankle and Foot Manual Muscle Testing Right Dorsiflexion (L4) 4 Good Plantarflexion (S1) 5 Normal Left Dorsiflexion (L4) 4 Good Plantarflexion (S1) 4 Good Comments PF tested seated B PT-OP-Q Treatments Start: 02/11/24 17:55 Freq: Status: Active Protocol: Document 04/21/24 09:54 SP (Rec: 04/21/24 10:34 SP [id number]) Therapeutic Exercises Supine Exercises LTR Side bilateral Reps/Minutes 10 Comments Verbal cues to perform in pain free range- improved range post manual pelvic tilt Reps/Minutes 10 Comments cued tail bone toward celing< >floor)- improved range performance pnfree Sitting Exercises march Sitting Exercise Name HEP Side bilateral Resistance Lvl 4 around thighs Reps/Minutes X10 hip abd Sitting Exercise Name HEP Resistance level 4 band around thighs Reps/Minutes one minute X 1 X15 Comments good muscle tiring Standing Exercises sidesteps Side bilateral Resistance level 4> 3 [place] green band at shins Equipment Used 2>1>2 hands on rail Reps/Minutes 10 ft X 2 laps Comments L weaker than R, cued for foot clearance Manual Therapy Treatment Soft Tissue Mobilization LS area Body Location R>L QL, lumbar paraspinals, proximal glut med & max Mobilization Type Rolling Body Position B Sidelying Comments monitored pressure tolerance- improved muscle softening Neuro Re-Education Treatment Balance Activities blue cushion Details WBOS, stride stance Equipment near rail, blue foam Comments EO: HTs EC: 7 sec WBOS CG- 5% A, 15 sec stride stance each side light CG at gait belt cues for use eyes for head turns slower stability midline , improved self tall and midline postural corrections EC up to 15 sec PT-OP-T Assessment and Plan Start: 02/11/24 17:55 Freq: Status: Active Protocol: Document 04/21/24 09:54 SP (Rec: 04/21/24 10:34 SP [id number]) Physical Therapy Assessment Goals Walking tolerance Penitentiary Goal (LTG) Pt will be able to safely ambulate with SPC and report ability to walk home with SPC 03/24-no change LTG Duration 04/08/2024 Gait Impairment Gait tolerance Short Term Goal (STG) Pt will be able to complete the 6 min walk achieving 600 ft with SPC only 1 standing rest break to inc activity tolerance 03/24-515ft w/SPC w/1 standing rest break STG Duration 04/03 Tallow Maker Goal (LTG) Pt will be able to complete the 6 min walk achieving 800 ft with SPC taking no standing rest breaks and no inc in pain from baseline LTG Duration 05/06/2024 Balance Impairment Balance Tallow Maker Goal (LTG) Pt will inc Tinetti balance assessment score from to to increase balance and gait for functional activity tolerance and dec fall risk 03/24- LTG Duration 05/06/2024 Assessment Summary Assessment Pt reports pain reduction end tx after manual and resisted ther ex. Improved pelvic performance with cuing education and demonstrated to model. Pt demonstrates decreased LE strength this tx in standing during resisted side stepping adjusted Level 4 >3 with cues able perform foot clearance each LE with BUE support and eliminated hip hiking compensations. Pt was able to completed EC uneven surface balance corrections up to 15 sec this tx unsupported . Physical Therapy Plan Frequency and Duration Frequency of Treatment 2x/Week Duration of treatment (weeks) 12 Plan of Care Start Date 02/12/24 Plan of Care End Date 05/06/24 Therapeutic Interventions Therapeutic Interventions Balance Training,Coordination Training,Gait Training,Home Exercise Program,Joint Mobilizations,Manual Therapy, Neuromuscular Re-education, Orthotic/Prosthetic Management ,Patient/Caregiver Education, Soft Tissue Mobilization, Taping,Therapeutic Activities, Therapeutic Exercises Modalities Biofeedback,Cold Pack/Ice Massage,Electric Stimulation, Hot Packs,Traction- Mechanical Other Referrals/Consults Referrals/Consults Recommended Recommend to follow up with Dr . Adelita, reguarding back injections Next Visit Focus/Plan Next Note Type Treatment Note Next Visit Plan Recheck resistance tolerance to standing HEP. POC: cont to advance core and hip strength exercises and balance activities;manual to help knee and back/leg pain
--- NOTE | 2024-05-06 11:03 | PT.OTN ---
Current Diagnoses Pain in right knee (05/06/24) Pain in left knee (05/06/24) Low back pain, unspecified (05/06/24) Difficulty in walking, not elsewhere classified (05/06/24) Other abnormalities of gait and mobility (05/06/24) Weakness (05/06/24) Physical Therapy Treatment Note PT-OP-A Visit Information Start: 02/11/24 17:55 Freq: Status: Active Protocol: Document 05/06/24 08:13 AB (Rec: 05/06/24 09:47 AB [id number]) Out-Patient Physical Therapy Visit Information Visit Information Visit Type Treatment Note Visit Note Patient late PT, Doreen Watkins into session. Visit Start Time 08:23 Visit Stop Time 09:01 Visit Number 17 Number of DATA WAREHOUSE ARCHITECT Visits 4 PT-OP-B Current Condition Start: 02/11/24 17:55 Freq: Status: Active Protocol: Document 02/12/24 09:06 [facility] (Rec: 02/12/24 09:49 [facility] [id number]) Current Condition History of Current Condition Current Complaints back pain History of Current Condition Pt reports he saw ortho yesterday who gave him a shot which has helped. He was told to take it easy.. In December, he fell and was in hospital for a week and went ot [facility] about 3 weeks and reports those beds are awful. He has chronic back pain also and notes arthritis. Pt walks w/4WW and will sit in chair as needed. He also rides his stationary bike. He uses a 4WW in the home. Pain getting worse since December until yesterday. He has had injections in the past and they help for a few months. He has been getting injections for the past year. 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 L one flips out on me and that is how he fell. Uses SPC when leaving the house as walker hard to get into the car. Pt has several low steps w/rail to get into the house. Lives w/. They have a cleaning lady. He has arms on the toilets to get off of them and higher toilet. Grab bar in the shower and chair. Pt reports in the past year, has hd 2 falls d/t LLE giving out. Has a bulky knee brace but its dificult to use. Sleeps well. Side sleepr w/ pillow btwn legs. Around the house uses FWW and uses 4WW outside. Prior Treatments and Tests November 2021 MRI: IMPRESSION: 1. There is a severe subacute L1 compression fracture. Cannot exclude a pathologic fracture. Consider further evaluation with CT. There is mild canal stenosis at T12-L1 secondary to mild posterior bony retropulsion. 2. Patient has underlying short pedicles. 3. 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 4. Multilevel facet arthropathy. 5. Multilevel foraminal narrowing as described above. Treatment Goals Patient/Caregiver Goals Get stronger in back and legs; feel more confident w/walking and feel like he could use the cane more often PT-OP-C Subjective Start: 02/11/24 17:55 Freq: Status: Active Protocol: Document 05/06/24 08:13 AB (Rec: 05/06/24 09:47 AB [id number]) OP-PT Subjective Patient Comments Patient Comments Patient reports he didn't do exercises due to having company over the weekend, but has been using his stationary bike. Patient reports the back pain persists. [place] cannot walk as far as he used to. Patient reports using FWW at home indoors and 4 wheeled walker out doors which decreases his back and right UE pain. Patient reports using his cane in the home during daylight hours, more than he was previously. PT-OP-E Functional Tests Start: 02/11/24 17:55 Freq: Status: Active Protocol: Document 05/06/24 08:13 AB (Rec: 05/06/24 11:00 AB [id number]) Functional Tests 6 Minute Walk Test Distance 568 Device Used SPC Comments No stops to rest Tinetti Balance and Gait Assessment Balance Score 13 Gait Score 8 Composite Score 21 Balance Score Impairment Rating 1 to <20% Impaired (Score 13- 15) Gait Score Impairment Rating 20 to <40% Impaired (Score 8-9 ) Composite Score Impairment Rating 20 to <40% Impaired (Score 17- 22) PT-OP-G Mobility & Gait Start: 02/11/24 17:55 Freq: Status: Active Protocol: Document 02/12/24 09:06 [facility] (Rec: 02/12/24 09:49 [facility] [id number]) OP Gait Assessment Comments Gait Comments lat leaning w/gait and slow speed and WBOS; use of SPC PT-OP-J Posture/Palpation/Skin Start: 02/11/24 17:55 Freq: Status: Active Protocol: Document 02/12/24 09:06 [facility] (Rec: 02/12/24 09:49 [facility] [id number]) Posture Evaluation Comments Posture Comments L shoulder elevation; WBOS, fwd head, inc kyphosis, R pelvic shear, rot L PT-OP-M Strength Start: 02/11/24 17:55 Freq: Status: Active Protocol: Document 02/12/24 09:06 [facility] (Rec: 02/12/24 09:49 [facility] [id number]) Hip Strength Hip Manual Muscle Testing Right Flexion (L2) 3+ Fair+ External Rotation 4- Good- Internal Rotation 3+ Fair+ Left Flexion (L2) 3+ Fair+ External Rotation 3 Fair Internal Rotation 3 Fair Knee Strength Knee Manual Muscle Testing Right Flexion (S2) 4- Good- Extension (L3) 4+ Good+ Left Flexion (S2) 4- Good- Extension (L3) 4 Good Ankle/Foot Strength Ankle and Foot Manual Muscle Testing Right Dorsiflexion (L4) 4 Good Plantarflexion (S1) 5 Normal Left Dorsiflexion (L4) 4 Good Plantarflexion (S1) 4 Good Comments PF tested seated B PT-OP-Q Treatments Start: 02/11/24 17:55 Freq: Status: Active Protocol: Document 05/06/24 08:13 AB (Rec: 05/06/24 09:47 AB [id number]) Therapeutic Exercises Sitting Exercises hip abd Sitting Exercise Name HEP Resistance level 4 band around thighs Reps/Minutes one minute X 1 X16 Comments Patient ed rational of glute med strength/act for balance Standing Exercises mini squat Side bilateral Resistance level 4 band above knees Reps/Minutes X10 Comments verbal cues for hip hinge heel raises Side bilateral Reps/Minutes 10 standing hip extension Standing Exercise Name resting at counter height Side bilateral Resistance level 4 Reps/Minutes X10 X 2 Comments X10 with band X 10 without band 6 min walk Comments 568.8 feet 6 min walk test with SPC no standing rests, PT-OP-T Assessment and Plan Start: 02/11/24 17:55 Freq: Status: Active Protocol: Document 05/06/24 08:13 AB (Rec: 05/06/24 09:47 AB [id number]) Physical Therapy Assessment Goals Walking tolerance Mechanical Planner Goal (LTG) Pt will be able to safely ambulate with SPC and report ability to walk home with SPC 03/24-no change LTG Duration 04/08/2024 Gait Impairment Gait tolerance Short Term Goal (STG) Pt will be able to complete the 6 min walk achieving 600 ft with SPC only 1 standing rest break to inc activity tolerance 03/24-515ft w/SPC w/1 standing rest break STG Duration 04/03 Senior Living Goal (LTG) Pt will be able to complete the 6 min walk achieving 800 ft with SPC taking no standing rest breaks and no inc in pain from baseline 05/06/2024 568.8 feet 6 min walk test with SPC no standing rests LTG Duration 05/06/2024 Balance Impairment Balance Senior Living Goal (LTG) Pt will inc Tinetti balance assessment score from to to increase balance and gait for functional activity tolerance and dec fall risk 03/24- LTG Duration 05/06/2024 Assessment Summary Assessment 05/06/2024 568.8 feet 6 min walk test with SPC no standing rests, improved since last tested. Patient reports his back started hurting with the heel raises, good danika to seated hip abduction, mini squat and standing hip ext. Physical Therapy Plan Frequency and Duration Frequency of Treatment 2x/Week Duration of treatment (weeks) 12 Plan of Care Start Date 02/12/24 Plan of Care End Date 05/06/24 Next Visit Focus/Plan Next Note Type Treatment Note Next Visit Plan Recheck resistance tolerance to standing HEP. POC: cont to advance core and hip strength exercises and balance activities;manual to help knee and back/leg pain
--- NOTE | 2024-05-06 11:17 | PT.OPPOC ---
Physical, Occupational & Speech Therapy At [facility] Current Diagnoses Pain in right knee (05/06/24) Pain in left knee (05/06/24) Low back pain, unspecified (05/06/24) Difficulty in walking, not elsewhere classified (05/06/24) Other abnormalities of gait and mobility (05/06/24) Weakness (05/06/24) Visit Care Team Role Provider Type Shy Angel DO Attending Provider Physician Family Provider Primary Care Provider Referring Provider Specialty: Family Practice Address: [address] [place] [address], [address], [address] Email: [email or web address] Plan Of Care PT-OP-B Current Condition Start: 02/11/24 17:55 Freq: Status: Active Protocol: Document 02/12/24 09:06 [facility] (Rec: 02/12/24 09:49 [facility] [id number]) Current Condition History of Current Condition Current Complaints back pain History of Current Condition Pt reports he saw ortho yesterday who gave him a shot which has helped. He was told to take it easy.. In December, he fell and was in hospital for a week and went ot [facility] about 3 weeks and reports those beds are awful. He has chronic back pain also and notes arthritis. Pt walks w/4WW and will sit in chair as needed. He also rides his stationary bike. He uses a 4WW in the home. Pain getting worse since December until yesterday. He has had injections in the past and they help for a few months. He has been getting injections for the past year. 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 L one flips out on me and that is how he fell. Uses SPC when leaving the house as walker hard to get into the car. Pt has several low steps w/rail to get into the house. Lives w/. They have a cleaning lady. He has arms on the toilets to get off of them and higher toilet. Grab bar in the shower and chair. Pt reports in the past year, has hd 2 falls d/t LLE giving out. Has a bulky knee brace but its dificult to use. Sleeps well. Side sleepr w/ pillow btwn legs. Around the house uses FWW and uses 4WW outside. Prior Treatments and Tests November 2021 MRI: IMPRESSION: 1. There is a severe subacute L1 compression fracture. Cannot exclude a pathologic fracture. Consider further evaluation with CT. There is mild canal stenosis at T12-L1 secondary to mild posterior bony retropulsion. 2. Patient has underlying short pedicles. 3. 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 4. Multilevel facet arthropathy. 5. Multilevel foraminal narrowing as described above. Treatment Goals Patient/Caregiver Goals Get stronger in back and legs; feel more confident w/walking and feel like he could use the cane more often PT-OP-T Assessment and Plan Start: 02/11/24 17:55 Freq: Status: Active Protocol: Document 05/06/24 11:08 [facility] (Rec: 05/06/24 11:17 [facility] [id number]) Physical Therapy Assessment Goals BURKETT Mcc Goal (LTG) Pt will score at least 46/56 to show low fall risk. LTG Duration 07/09 Walking tolerance Home Health Administrator Goal (LTG) Pt will be able to safely ambulate with SPC and report ability to walk home with SPC 03/24-no change 05/06-walking w/cane in daylight hours and uses his walker if back pain or hand pain LTG Duration 07/09 Gait Impairment Gait tolerance Short Term Goal (STG) Pt will be able to complete the 6 min walk achieving 600 ft with SPC only 1 standing rest break to inc activity tolerance 03/24-515ft w/SPC w/1 standing rest break 05/06-558.8ft w/SPC w/o standing rest break STG Duration 06/13 Home Health Administrator Goal (LTG) Pt will be able to complete the 6 min walk achieving 800 ft with SPC taking no standing rest breaks and no inc in pain from baseline 05/06/2024 568.8 feet 6 min walk test with SPC no standing rests LTG Duration 07/09 Balance Impairment Balance Home Health Administrator Goal (LTG) Pt will inc Tinetti balance assessment score from to to increase balance and gait for functional activity tolerance and dec fall risk 03/24- LTG Duration 07/09 Assessment Summary Assessment This PT presented in sessiona nd discussed pt progress and assessed performance w/testing today. He is making slow but steady progress w/PT and is limited by multiple comorbitities: back pain, B knee pain, generalized weakness, dec balance, CKD, hx of lung transplant and IPF. He is overall compliant w/HEP and is progressing w/balance and safety with cane. He is able to walk more in the house with the cane and is showing improved balance. Cont PT to focus on balance and LE stability to dec pt fall risk. Physical Therapy Plan Frequency and Duration Frequency of Treatment 1-2x/wk Duration of treatment (weeks) 8 Plan of Care Start Date 05/06/24 Plan of Care End Date 07/09/24 Therapeutic Interventions Therapeutic Interventions Balance Training,Coordination Training,Gait Training,Home Exercise Program,Joint Mobilizations,Manual Therapy, Neuromuscular Re-education, Orthotic/Prosthetic Management ,Patient/Caregiver Education, Soft Tissue Mobilization, Taping,Therapeutic Activities, Therapeutic Exercises Modalities Biofeedback,Cold Pack/Ice Massage,Electric Stimulation, Hot Packs,Traction- Mechanical Next Visit Focus/Plan Next Note Type Treatment Note Next Visit Plan Recheck resistance tolerance to standing HEP. POC: cont to advance core and hip strength exercises and balance activities;manual to help knee and back/leg pain Plan of Care Dates Plan of Care Start Date 05/06/24 Plan of Care End Date 07/09/24 Electronically Signed by: Doreen Watkins, PT 05/06/24 9547 If you are in agreement with this Plan of Care, please return a signed and dated copy. I have reviewed this Plan of Care and certify that the skilled therapy services above are required to meet the patient?s needs. Physician Signature Date Printed Name and Credentials Clinical Instructor Signature Printed Name and Credentials
--- NOTE | 2024-05-13 15:23 | PT.OTN ---
Current Diagnoses Pain in right knee (05/13/24) Pain in left knee (05/13/24) Low back pain, unspecified (05/13/24) Difficulty in walking, not elsewhere classified (05/13/24) Other abnormalities of gait and mobility (05/13/24) Weakness (05/13/24) Physical Therapy Treatment Note PT-OP-A Visit Information Start: 02/11/24 17:55 Freq: Status: Active Protocol: Document 05/13/24 14:44 [facility] (Rec: 05/13/24 15:22 [facility] [id number]) Out-Patient Physical Therapy Visit Information Visit Information Visit Type Treatment Note Visit Note 10/13 Visit Start Time 14:37 Visit Stop Time 15:15 Visit Number 18 Number of RETAIL MANAGER Visits 0 PT-OP-B Current Condition Start: 02/11/24 17:55 Freq: Status: Active Protocol: Document 02/12/24 09:06 [facility] (Rec: 02/12/24 09:49 [facility] [id number]) Current Condition History of Current Condition Current Complaints back pain History of Current Condition Pt reports he saw ortho yesterday who gave him a shot which has helped. He was told to take it easy.. In December, he fell and was in hospital for a week and went ot [facility] about 3 weeks and reports those beds are awful. He has chronic back pain also and notes arthritis. Pt walks w/4WW and will sit in chair as needed. He also rides his stationary bike. He uses a 4WW in the home. Pain getting worse since December until yesterday. He has had injections in the past and they help for a few months. He has been getting injections for the past year. 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 L one flips out on me and that is how he fell. Uses SPC when leaving the house as walker hard to get into the car. Pt has several low steps w/rail to get into the house. Lives w/. They have a cleaning lady. He has arms on the toilets to get off of them and higher toilet. Grab bar in the shower and chair. Pt reports in the past year, has hd 2 falls d/t LLE giving out. Has a bulky knee brace but its dificult to use. Sleeps well. Side sleepr w/ pillow btwn legs. Around the house uses FWW and uses 4WW outside. Prior Treatments and Tests November 2021 MRI: IMPRESSION: 1. There is a severe subacute L1 compression fracture. Cannot exclude a pathologic fracture. Consider further evaluation with CT. There is mild canal stenosis at T12-L1 secondary to mild posterior bony retropulsion. 2. Patient has underlying short pedicles. 3. 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 4. Multilevel facet arthropathy. 5. Multilevel foraminal narrowing as described above. Treatment Goals Patient/Caregiver Goals Get stronger in back and legs; feel more confident w/walking and feel like he could use the cane more often PT-OP-C Subjective Start: 02/11/24 17:55 Freq: Status: Active Protocol: Document 05/13/24 14:44 [facility] (Rec: 05/13/24 15:22 [facility] [id number]) OP-PT Subjective Patient Comments Patient Comments Pt reports he went to [place] this am so is tired PT-OP-E Functional Tests Start: 02/11/24 17:55 Freq: Status: Active Protocol: Document 05/06/24 08:13 [facility] (Rec: 05/06/24 11:00 [facility] [id number]) Functional Tests 6 Minute Walk Test Distance 568 Device Used SPC Comments No stops to rest Tinetti Balance and Gait Assessment Balance Score 13 Gait Score 8 Composite Score 21 Balance Score Impairment Rating 1 to <20% Impaired (Score 13- 15) Gait Score Impairment Rating 20 to <40% Impaired (Score 8-9 ) Composite Score Impairment Rating 20 to <40% Impaired (Score 17- 22) PT-OP-G Mobility & Gait Start: 02/11/24 17:55 Freq: Status: Active Protocol: Document 02/12/24 09:06 [facility] (Rec: 02/12/24 09:49 [facility] [id number]) OP Gait Assessment Comments Gait Comments lat leaning w/gait and slow speed and WBOS; use of SPC PT-OP-J Posture/Palpation/Skin Start: 02/11/24 17:55 Freq: Status: Active Protocol: Document 02/12/24 09:06 [facility] (Rec: 02/12/24 09:49 [facility] [id number]) Posture Evaluation Comments Posture Comments L shoulder elevation; WBOS, fwd head, inc kyphosis, R pelvic shear, rot L PT-OP-M Strength Start: 02/11/24 17:55 Freq: Status: Active Protocol: Document 02/12/24 09:06 [facility] (Rec: 02/12/24 09:49 [facility] [id number]) Hip Strength Hip Manual Muscle Testing Right Flexion (L2) 3+ Fair+ External Rotation 4- Good- Internal Rotation 3+ Fair+ Left Flexion (L2) 3+ Fair+ External Rotation 3 Fair Internal Rotation 3 Fair Knee Strength Knee Manual Muscle Testing Right Flexion (S2) 4- Good- Extension (L3) 4+ Good+ Left Flexion (S2) 4- Good- Extension (L3) 4 Good Ankle/Foot Strength Ankle and Foot Manual Muscle Testing Right Dorsiflexion (L4) 4 Good Plantarflexion (S1) 5 Normal Left Dorsiflexion (L4) 4 Good Plantarflexion (S1) 4 Good Comments PF tested seated B PT-OP-Q Treatments Start: 02/11/24 17:55 Freq: Status: Active Protocol: Document 05/13/24 14:44 [facility] (Rec: 05/13/24 15:22 [facility] [id number]) Gym Equipment Shuttle Balance Red Details red Comments Fwd staggered stance B fwd and side: WBOS & NBOS Therapeutic Exercises Sitting Exercises DF Sitting Exercise Name DF/PF Side bilateral Reps/Minutes 2x20 Gait Training Gait Activity cane Comments 3 min adjust cane down and work on sequence and shoudler position Manual Therapy Treatment Consent Patient gave verbal consent for manual Yes treatment Soft Tissue Mobilization ITB Body Location L ITB and quad Mobilization Type Rolling Intensity/Depth Moderate Body Position Supine Joint Mobilizations bilateral knees Comments PA tibfem Neuro Re-Education Treatment Balance Activities hurdles Equipment 6 hurdles Comments 1. recip w/hand on bar x10 2. sidestep x2 B tandem stepping Comments 1. stance B 2. walk 2x10ft PT-OP-T Assessment and Plan Start: 02/11/24 17:55 Freq: Status: Active Protocol: Document 05/13/24 14:44 [facility] (Rec: 05/13/24 15:22 [facility] [id number]) Physical Therapy Assessment Goals BURKETT Assisted Goal (LTG) Pt will score at least 46/56 to show low fall risk. LTG Duration 07/09 Walking tolerance Scrap Hooker Goal (LTG) Pt will be able to safely ambulate with SPC and report ability to walk home with SPC 03/24-no change 05/06-walking w/cane in daylight hours and uses his walker if back pain or hand pain LTG Duration 07/09 Gait Impairment Gait tolerance Short Term Goal (STG) Pt will be able to complete the 6 min walk achieving 600 ft with SPC only 1 standing rest break to inc activity tolerance 03/24-515ft w/SPC w/1 standing rest break 05/06-558.8ft w/SPC w/o standing rest break STG Duration 06/13 Scrap Hooker Goal (LTG) Pt will be able to complete the 6 min walk achieving 800 ft with SPC taking no standing rest breaks and no inc in pain from baseline 05/06/2024 568.8 feet 6 min walk test with SPC no standing rests LTG Duration 07/09 Balance Impairment Balance Assisted Goal (LTG) Pt will inc Tinetti balance assessment score from to to increase balance and gait for functional activity tolerance and dec fall risk 03/24- LTG Duration 07/09 Assessment Summary Assessment Pt was more fatigued today and had more difficulty with knee flex during gait of L knee. Improved w/manual Physical Therapy Plan Frequency and Duration Frequency of Treatment 1-2x/wk Duration of treatment (weeks) 8 Plan of Care Start Date 05/06/24 Plan of Care End Date 07/09/24 Therapeutic Interventions Therapeutic Interventions Balance Training,Coordination Training,Gait Training,Home Exercise Program,Joint Mobilizations,Manual Therapy, Neuromuscular Re-education, Orthotic/Prosthetic Management ,Patient/Caregiver Education, Soft Tissue Mobilization, Taping,Therapeutic Activities, Therapeutic Exercises Modalities Biofeedback,Cold Pack/Ice Massage,Electric Stimulation, Hot Packs,Traction- Mechanical Other Referrals/Consults Referrals/Consults Recommended Recommend to follow up with Dr Tomas Ureña, reguarding back injections Next Visit Focus/Plan Next Note Type Treatment Note Next Visit Plan Recheck resistance tolerance to standing HEP. POC: cont to advance core and hip strength exercises and balance activities;manual to help knee and back/leg pain
--- NOTE | 2024-05-19 10:48 | PT.OTN ---
Current Diagnoses Pain in right knee (05/19/24) Pain in left knee (05/19/24) Low back pain, unspecified (05/19/24) Difficulty in walking, not elsewhere classified (05/19/24) Other abnormalities of gait and mobility (05/19/24) Weakness (05/19/24) Physical Therapy Treatment Note PT-OP-A Visit Information Start: 02/11/24 17:55 Freq: Status: Active Protocol: Document 05/19/24 08:10 [facility] (Rec: 05/19/24 10:48 [facility] [id number]) Out-Patient Physical Therapy Visit Information Visit Information Visit Type Treatment Note Visit Note 11/10 Visit Start Time 09:51 Visit Stop Time 10:38 Visit Number 19 Number of EQUINE VET Visits 1 PT-OP-B Current Condition Start: 02/11/24 17:55 Freq: Status: Active Protocol: Document 02/12/24 09:06 [facility] (Rec: 02/12/24 09:49 [facility] [id number]) Current Condition History of Current Condition Current Complaints back pain History of Current Condition Pt reports he saw ortho yesterday who gave him a shot which has helped. He was told to take it easy.. In December, he fell and was in hospital for a week and went ot [facility] about 3 weeks and reports those beds are awful. He has chronic back pain also and notes arthritis. Pt walks w/4WW and will sit in chair as needed. He also rides his stationary bike. He uses a 4WW in the home. Pain getting worse since December until yesterday. He has had injections in the past and they help for a few months. He has been getting injections for the past year. 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 L one flips out on me and that is how he fell. Uses SPC when leaving the house as walker hard to get into the car. Pt has several low steps w/rail to get into the house. Lives w/. They have a cleaning lady. He has arms on the toilets to get off of them and higher toilet. Grab bar in the shower and chair. Pt reports in the past year, has hd 2 falls d/t LLE giving out. Has a bulky knee brace but its dificult to use. Sleeps well. Side sleepr w/ pillow btwn legs. Around the house uses FWW and uses 4WW outside. Prior Treatments and Tests November 2021 MRI: IMPRESSION: 1. There is a severe subacute L1 compression fracture. Cannot exclude a pathologic fracture. Consider further evaluation with CT. There is mild canal stenosis at T12-L1 secondary to mild posterior bony retropulsion. 2. Patient has underlying short pedicles. 3. 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 4. Multilevel facet arthropathy. 5. Multilevel foraminal narrowing as described above. Treatment Goals Patient/Caregiver Goals Get stronger in back and legs; feel more confident w/walking and feel like he could use the cane more often PT-OP-C Subjective Start: 02/11/24 17:55 Freq: Status: Active Protocol: Document 05/19/24 08:10 [facility] (Rec: 05/19/24 10:48 [id number]) OP-PT Subjective Patient Comments Patient Comments Patient rates back pain 12 start of session, Patient also comments that his neck is bothering, cracking when he moves it. PT-OP-E Functional Tests Start: 02/11/24 17:55 Freq: Status: Active Protocol: Document 05/06/24 08:13 [facility] (Rec: 05/06/24 11:00 [id number]) Functional Tests 6 Minute Walk Test Distance 568 Device Used SPC Comments No stops to rest Tinetti Balance and Gait Assessment Balance Score 13 Gait Score 8 Composite Score 21 Balance Score Impairment Rating 1 to <20% Impaired (Score 13- 15) Gait Score Impairment Rating 20 to <40% Impaired (Score 8-9 ) Composite Score Impairment Rating 20 to <40% Impaired (Score 17- 22) PT-OP-G Mobility & Gait Start: 02/11/24 17:55 Freq: Status: Active Protocol: Document 02/12/24 09:06 [facility] (Rec: 02/12/24 09:49 [facility] [id number]) OP Gait Assessment Comments Gait Comments lat leaning w/gait and slow speed and WBOS; use of SPC PT-OP-J Posture/Palpation/Skin Start: 02/11/24 17:55 Freq: Status: Active Protocol: Document 02/12/24 09:06 [facility] (Rec: 02/12/24 09:49 [facility] [id number]) Posture Evaluation Comments Posture Comments L shoulder elevation; WBOS, fwd head, inc kyphosis, R pelvic shear, rot L PT-OP-M Strength Start: 02/11/24 17:55 Freq: Status: Active Protocol: Document 02/12/24 09:06 [facility] (Rec: 02/12/24 09:49 [facility] [id number]) Hip Strength Hip Manual Muscle Testing Right Flexion (L2) 3+ Fair+ External Rotation 4- Good- Internal Rotation 3+ Fair+ Left Flexion (L2) 3+ Fair+ External Rotation 3 Fair Internal Rotation 3 Fair Knee Strength Knee Manual Muscle Testing Right Flexion (S2) 4- Good- Extension (L3) 4+ Good+ Left Flexion (S2) 4- Good- Extension (L3) 4 Good Ankle/Foot Strength Ankle and Foot Manual Muscle Testing Right Dorsiflexion (L4) 4 Good Plantarflexion (S1) 5 Normal Left Dorsiflexion (L4) 4 Good Plantarflexion (S1) 4 Good Comments PF tested seated B PT-OP-Q Treatments Start: 02/11/24 17:55 Freq: Status: Active Protocol: Document 05/19/24 08:10 [facility] (Rec: 05/19/24 10:48 [facility] [id number]) Therapeutic Exercises Supine Exercises abdominal bracing with LE extension Supine Exercise Name HEP Side bilateral Reps/Minutes X5 Comments verbal cues to brace as LE moves away from core HS stretch Supine Exercise Name HS stretch Side bilateral Equipment Used towel/strap Reps/Minutes one minute X1 each LE Comments with AROM knee flexion X 10 each stretch BKFO Supine Exercise Name BKFO Reps/Minutes X8 Comments Cues for core stabilization modified Robson stretch Supine Exercise Name one LE on bolter with folded pillow under opp LE on map Side bilateral Reps/Minutes 60 sec sec X 2 Comments Verbal cues for breathing from diaphragm bridges Side bilateral Reps/Minutes 10 Comments monitored for pain, VC to push into heels act glutes dec height Standing Exercises standing hip extension Standing Exercise Name resting on UE support of treadmill, pillow added last 3 repetitions Side bilateral Reps/Minutes X10 Comments VC to brace with each LE lift Manual Therapy Treatment Consent Patient gave verbal consent for manual Yes treatment Soft Tissue Mobilization ITB Body Location BITB and quad Mobilization Type Myofascial Release,Rolling Intensity/Depth Moderate Body Position Supine right hip flexor at groint Mobilization Type Cross-Friction,Rolling Intensity/Depth Moderate Body Position Hooklying Comments Moderate to superficial right piriformis/gluteal area Body Location R glute /piriformis Lumbar paraspinals Mobilization Type Cross-Friction,Rolling, Sustained Pressure Intensity/Depth Moderate Body Position Sidelying Comments pillow between knees LS area Body Location R Mobilization Type Sustained Pressure Body Position Sidelying Comments monitored pressure tolerance- improved muscle softening Joint Mobilizations right hip Direction inf Grade II Body Position Hooklying Reps/Duration X10 X 2 bilateral knees Grade II Comments PA tibfem Manual Techniques contract relax Type into hip flexion right hip Body Location right hip Body Position Hooklying Reps/Duration X2 MET for right AI left PI Type and pubic shot gun, modified AI PI MET from hooklying no dowel Reps/Duration 6 X 6 seconds each PT-OP-T Assessment and Plan Start: 02/11/24 17:55 Freq: Status: Active Protocol: Document 05/19/24 08:10 [facility] (Rec: 05/19/24 10:48 [facility] [id number]) Physical Therapy Assessment Goals BURKETT Leather Craftsman Goal (LTG) Pt will score at least 46/56 to show low fall risk. LTG Duration 07/09 Walking tolerance Alf Goal (LTG) Pt will be able to safely ambulate with SPC and report ability to walk home with SPC 03/24-no change 05/06-walking w/cane in daylight hours and uses his walker if back pain or hand pain LTG Duration 07/09 Gait Impairment Gait tolerance Short Term Goal (STG) Pt will be able to complete the 6 min walk achieving 600 ft with SPC only 1 standing rest break to inc activity tolerance 03/24-515ft w/SPC w/1 standing rest break 05/06-558.8ft w/SPC w/o standing rest break STG Duration 06/13 Alf Goal (LTG) Pt will be able to complete the 6 min walk achieving 800 ft with SPC taking no standing rest breaks and no inc in pain from baseline 05/06/2024 568.8 feet 6 min walk test with SPC no standing rests LTG Duration 07/09 Balance Impairment Balance Alf Goal (LTG) Pt will inc Tinetti balance assessment score from to to increase balance and gait for functional activity tolerance and dec fall risk 03/24- LTG Duration 07/09 Assessment Summary Assessment Patient reports back pain decreased to -03/12 but is now higher in back, comments change in pain occurred with/ post standing hip ext exercise . Physical Therapy Plan Frequency and Duration Frequency of Treatment 1-2x/wk Duration of treatment (weeks) 8 Plan of Care Start Date 05/06/24 Plan of Care End Date 07/09/24 Next Visit Focus/Plan Next Note Type Treatment Note Next Visit Plan KX next session. Recheck resistance tolerance to standing HEP. possibly discontinue standing hip extension. POC: cont to advance core and hip strength exercises and balance activities;manual to help knee and back/leg pain
--- NOTE | 2024-06-11 09:31 | PT.OTN ---
Current Diagnoses Pain in right knee (06/11/24) Pain in left knee (06/11/24) Low back pain, unspecified (06/11/24) Difficulty in walking, not elsewhere classified (06/11/24) Other abnormalities of gait and mobility (06/11/24) Weakness (06/11/24) Physical Therapy Treatment Note PT-OP-A Visit Information Start: 02/11/24 17:55 Freq: Status: Active Protocol: Document 06/11/24 08:07 AB (Rec: 06/11/24 09:31 AB [id number]) Out-Patient Physical Therapy Visit Information Visit Information Visit Type Treatment Note Visit Note 12/11 Visit Start Time 08:18 Visit Number 20 Number of SENIOR ADMINISTRATOR SUPPORT Visits 2 PT-OP-B Current Condition Start: 02/11/24 17:55 Freq: Status: Active Protocol: Document 02/12/24 09:06 [facility] (Rec: 02/12/24 09:49 [facility] [id number]) Current Condition History of Current Condition Current Complaints back pain History of Current Condition Pt reports he saw ortho yesterday who gave him a shot which has helped. He was told to take it easy.. In December, he fell and was in hospital for a week and went ot [facility] about 3 weeks and reports those beds are awful. He has chronic back pain also and notes arthritis. Pt walks w/4WW and will sit in chair as needed. He also rides his stationary bike. He uses a 4WW in the home. Pain getting worse since December until yesterday. He has had injections in the past and they help for a few months. He has been getting injections for the past year. 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 L one flips out on me and that is how he fell. Uses SPC when leaving the house as walker hard to get into the car. Pt has several low steps w/rail to get into the house. Lives w/. They have a cleaning lady. He has arms on the toilets to get off of them and higher toilet. Grab bar in the shower and chair. Pt reports in the past year, has hd 2 falls d/t LLE giving out. Has a bulky knee brace but its dificult to use. Sleeps well. Side sleepr w/ pillow btwn legs. Around the house uses FWW and uses 4WW outside. Prior Treatments and Tests November 2021 MRI: IMPRESSION: 1. There is a severe subacute L1 compression fracture. Cannot exclude a pathologic fracture. Consider further evaluation with CT. There is mild canal stenosis at T12-L1 secondary to mild posterior bony retropulsion. 2. Patient has underlying short pedicles. 3. 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 4. Multilevel facet arthropathy. 5. Multilevel foraminal narrowing as described above. Treatment Goals Patient/Caregiver Goals Get stronger in back and legs; feel more confident w/walking and feel like he could use the cane more often PT-OP-C Subjective Start: 02/11/24 17:55 Freq: Status: Active Protocol: Document 06/11/24 08:07 (Rec: 06/11/24 09:31 [id number]) OP-PT Subjective Patient Comments Patient Comments Patient rates hip right>left and L>right knee pain bilateral hips and knees 04/12. Patient reports having no falls, but has been tipsy turvey. (also comments balance has gone to hell in a hand basket. ) SLS 1 sec left and right LE without UE use PT-OP-E Functional Tests Start: 02/11/24 17:55 Freq: Status: Active Protocol: Document 05/06/24 08:13 AB (Rec: 05/06/24 11:00 [id number]) Functional Tests 6 Minute Walk Test Distance 568 Device Used SPC Comments No stops to rest Tinetti Balance and Gait Assessment Balance Score 13 Gait Score 8 Composite Score 21 Balance Score Impairment Rating 1 to <20% Impaired (Score 13- 15) Gait Score Impairment Rating 20 to <40% Impaired (Score 8-9 ) Composite Score Impairment Rating 20 to <40% Impaired (Score 17- 22) PT-OP-G Mobility & Gait Start: 02/11/24 17:55 Freq: Status: Active Protocol: Document 02/12/24 09:06 [facility] (Rec: 02/12/24 09:49 [facility] [id number]) OP Gait Assessment Comments Gait Comments lat leaning w/gait and slow speed and WBOS; use of SPC PT-OP-J Posture/Palpation/Skin Start: 02/11/24 17:55 Freq: Status: Active Protocol: Document 02/12/24 09:06 [facility] (Rec: 02/12/24 09:49 [facility] [id number]) Posture Evaluation Comments Posture Comments L shoulder elevation; WBOS, fwd head, inc kyphosis, R pelvic shear, rot L PT-OP-M Strength Start: 02/11/24 17:55 Freq: Status: Active Protocol: Document 02/12/24 09:06 [facility] (Rec: 02/12/24 09:49 [facility] [id number]) Hip Strength Hip Manual Muscle Testing Right Flexion (L2) 3+ Fair+ External Rotation 4- Good- Internal Rotation 3+ Fair+ Left Flexion (L2) 3+ Fair+ External Rotation 3 Fair Internal Rotation 3 Fair Knee Strength Knee Manual Muscle Testing Right Flexion (S2) 4- Good- Extension (L3) 4+ Good+ Left Flexion (S2) 4- Good- Extension (L3) 4 Good Ankle/Foot Strength Ankle and Foot Manual Muscle Testing Right Dorsiflexion (L4) 4 Good Plantarflexion (S1) 5 Normal Left Dorsiflexion (L4) 4 Good Plantarflexion (S1) 4 Good Comments PF tested seated B PT-OP-Q Treatments Start: 02/11/24 17:55 Freq: Status: Active Protocol: Document 06/11/24 08:07 AB (Rec: 06/11/24 09:31 AB [id number]) Gym Equipment Shuttle Balance Red Details red Comments Fwd staggered stance B fwd and side: NBOS with visual scanning and head turns CGA Therapeutic Exercises Supine Exercises modified Robson stretch Supine Exercise Name one LE on bolster with folded pillow under opp LE on bolster Side right Reps/Minutes 60 sec sec X 1 Comments Verbal cues for breathing from diaphragm Sitting Exercises hip abd Sitting Exercise Name HEP Resistance level 4 band around thighs Reps/Minutes one minute X 1 X15 X2 Comments Patient ed rational of glute med strength/act for balance Standing Exercises heel raises Side bilateral Reps/Minutes 10 Comments VC to lower heels slowly Manual Therapy Treatment Soft Tissue Mobilization right hip flexor at groint Mobilization Type Cross-Friction,Rolling Intensity/Depth Moderate Body Position Hooklying Comments Moderate to superficial right piriformis/gluteal area Body Location R glute /piriformis Lumbar paraspinals Mobilization Type Cross-Friction,Rolling, Sustained Pressure Intensity/Depth Moderate Body Position Sidelying Comments pillow between knees Joint Mobilizations right hip Direction inf Grade II Body Position Hooklying Reps/Duration X10 X 3 bilateral knees Grade II Body Position X10 X 3 Comments PA tibfem Manual Techniques tonic traction Type right hip Reps/Duration ~30 to 50 sec contract relax Type right hip ER and right HS Body Location right hip Body Position Hooklying Reps/Duration X1 each Neuro Re-Education Treatment Balance Activities hurdles Equipment 6 hurdles X 10 feet Comments 1.fwd initiates with hands above bars CGA X4 2. sidestep x2 left and right with UE support retro stepping Reps/Duration 10 feet X 2 Comments CGA hands above bars tandem stepping Comments 2. walk 2x10ft CGA SLS Surface floor Reps/Duration X3 X 2 each LE CGA PT-OP-T Assessment and Plan Start: 02/11/24 17:55 Freq: Status: Active Protocol: Document 06/11/24 08:07 AB (Rec: 06/11/24 09:31 AB [id number]) Physical Therapy Assessment Goals BURKETT Hematologist Goal (LTG) Pt will score at least 46/56 to show low fall risk. LTG Duration 07/09 Walking tolerance Fci Goal (LTG) Pt will be able to safely ambulate with SPC and report ability to walk home with SPC 03/24-no change 05/06-walking w/cane in daylight hours and uses his walker if back pain or hand pain LTG Duration 07/09 Gait Impairment Gait tolerance Short Term Goal (STG) Pt will be able to complete the 6 min walk achieving 600 ft with SPC only 1 standing rest break to inc activity tolerance 03/24-515ft w/SPC w/1 standing rest break 05/06-558.8ft w/SPC w/o standing rest break STG Duration 06/13 Hematologist Goal (LTG) Pt will be able to complete the 6 min walk achieving 800 ft with SPC taking no standing rest breaks and no inc in pain from baseline 05/06/2024 568.8 feet 6 min walk test with SPC no standing rests LTG Duration 07/09 Balance Impairment Balance Hematologist Goal (LTG) Pt will inc Tinetti balance assessment score from to to increase balance and gait for functional activity tolerance and dec fall risk 03/24- LTG Duration 07/09 Assessment Summary Assessment Patient reports pain is about half end of session. SLS increased from 1 to 2 seconds each LE post glute med activation. Physical Therapy Plan Frequency and Duration Frequency of Treatment 1-2x/wk Duration of treatment (weeks) 8 Plan of Care Start Date 05/06/24 Plan of Care End Date 07/09/24 Next Visit Focus/Plan Next Note Type Treatment Note Next Visit Plan KX next session. Recheck resistance tolerance to standing HEP. possibly discontinue standing hip extension. POC: cont to advance core and hip strength exercises and balance activities;manual to help knee and back/leg pain
--- NOTE | 2024-06-17 11:19 | PT-OP ANOTE ---
Attempted to call son to inform re: DC at tomorrow's visit, but goes to busy signal and unable to get through w/multiple attempts. Pt signed release at start of care and son asked to be informed
--- NOTE | 2024-06-18 09:01 | PT.OTN ---
Current Diagnoses Pain in right knee (06/18/24) Pain in left knee (06/18/24) Low back pain, unspecified (06/18/24) Difficulty in walking, not elsewhere classified (06/18/24) Other abnormalities of gait and mobility (06/18/24) Weakness (06/18/24) Physical Therapy Treatment Note PT-OP-A Visit Information Start: 02/11/24 17:55 Freq: Status: Active Protocol: Document 06/18/24 08:20 [facility] (Rec: 06/18/24 09:01 [facility] [id number]) Out-Patient Physical Therapy Visit Information Visit Information Visit Type Discharge Summary Visit Start Time 08:19 Visit Stop Time 09:00 Visit Number 21 Number of PURSE MAKER Visits 0 PT-OP-B Current Condition Start: 02/11/24 17:55 Freq: Status: Active Protocol: Document 02/12/24 09:06 [facility] (Rec: 02/12/24 09:49 [facility] [id number]) Current Condition History of Current Condition Current Complaints back pain History of Current Condition Pt reports he saw ortho yesterday who gave him a shot which has helped. He was told to take it easy.. In December, he fell and was in hospital for a week and went ot [facility] about 3 weeks and reports those beds are awful. He has chronic back pain also and notes arthritis. Pt walks w/4WW and will sit in chair as needed. He also rides his stationary bike. He uses a 4WW in the home. Pain getting worse since December until yesterday. He has had injections in the past and they help for a few months. He has been getting injections for the past year. 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 L one flips out on me and that is how he fell. Uses SPC when leaving the house as walker hard to get into the car. Pt has several low steps w/rail to get into the house. Lives w/. They have a cleaning lady. He has arms on the toilets to get off of them and higher toilet. Grab bar in the shower and chair. Pt reports in the past year, has hd 2 falls d/t LLE giving out. Has a bulky knee brace but its dificult to use. Sleeps well. Side sleepr w/ pillow btwn legs. Around the house uses FWW and uses 4WW outside. Prior Treatments and Tests November 2021 MRI: IMPRESSION: 1. There is a severe subacute L1 compression fracture. Cannot exclude a pathologic fracture. Consider further evaluation with CT. There is mild canal stenosis at T12-L1 secondary to mild posterior bony retropulsion. 2. Patient has underlying short pedicles. 3. 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 4. Multilevel facet arthropathy. 5. Multilevel foraminal narrowing as described above. Treatment Goals Patient/Caregiver Goals Get stronger in back and legs; feel more confident w/walking and feel like he could use the cane more often PT-OP-C Subjective Start: 02/11/24 17:55 Freq: Status: Active Protocol: Document 06/18/24 08:20 [facility] (Rec: 06/18/24 09:01 [facility] [id number]) OP-PT Subjective Patient Comments Patient Comments Pt reports he feels unsteady PT-OP-E Functional Tests Start: 02/11/24 17:55 Freq: Status: Active Protocol: Document 06/18/24 08:20 [facility] (Rec: 06/18/24 09:01 [facility] [id number]) Functional Tests 6 Minute Walk Test Distance 508ft Device Used SPC PT-OP-G Mobility & Gait Start: 02/11/24 17:55 Freq: Status: Active Protocol: Document 02/12/24 09:06 [facility] (Rec: 02/12/24 09:49 [facility] [id number]) OP Gait Assessment Comments Gait Comments lat leaning w/gait and slow speed and WBOS; use of SPC PT-OP-J Posture/Palpation/Skin Start: 02/11/24 17:55 Freq: Status: Active Protocol: Document 02/12/24 09:06 [facility] (Rec: 02/12/24 09:49 [facility] [id number]) Posture Evaluation Comments Posture Comments L shoulder elevation; WBOS, fwd head, inc kyphosis, R pelvic shear, rot L PT-OP-M Strength Start: 02/11/24 17:55 Freq: Status: Active Protocol: Document 02/12/24 09:06 [facility] (Rec: 02/12/24 09:49 [facility] [id number]) Hip Strength Hip Manual Muscle Testing Right Flexion (L2) 3+ Fair+ External Rotation 4- Good- Internal Rotation 3+ Fair+ Left Flexion (L2) 3+ Fair+ External Rotation 3 Fair Internal Rotation 3 Fair Knee Strength Knee Manual Muscle Testing Right Flexion (S2) 4- Good- Extension (L3) 4+ Good+ Left Flexion (S2) 4- Good- Extension (L3) 4 Good Ankle/Foot Strength Ankle and Foot Manual Muscle Testing Right Dorsiflexion (L4) 4 Good Plantarflexion (S1) 5 Normal Left Dorsiflexion (L4) 4 Good Plantarflexion (S1) 4 Good Comments PF tested seated B PT-OP-Q Treatments Start: 02/11/24 17:55 Freq: Status: Active Protocol: Document 06/18/24 08:20 [facility] (Rec: 06/18/24 09:01 [facility] [id number]) Therapeutic Exercises Sitting Exercises stretch Sitting Exercise Name HS Side bilateral Reps/Minutes 45 sec ea hip IR Sitting Exercise Name AROM Side bilateral Reps/Minutes X10 Comments verbal and tactile cues DF Sitting Exercise Name DF/PF Side bilateral Reps/Minutes x20 Comments review march Sitting Exercise Name HEP Side bilateral Resistance Lvl 3 around thighs Reps/Minutes X10 hip abd Sitting Exercise Name HEP review Resistance level 3 band around thighs Reps/Minutes one minute X 1 then X15 reps Standing Exercises 6 min walk Reps/Minutes 508ft Neuro Re-Education Treatment Balance Activities testing Comments BURKETT and Tinetti PT-OP-T Assessment and Plan Start: 02/11/24 17:55 Freq: Status: Active Protocol: Document 06/18/24 08:20 [facility] (Rec: 06/18/24 09:01 [facility] [id number]) Physical Therapy Assessment Goals BURKETT Entry Level Chemist Goal (LTG) Pt will score at least 46/56 to show low fall risk. 06/18- LTG Duration 07/09 Walking tolerance Entry Level Chemist Goal (LTG) Pt will be able to safely ambulate with SPC and report ability to walk home with SPC 03/24-no change 05/06-walking w/cane in daylight hours and uses his walker if back pain or hand pain 06/18-uses walker recently feels more stable, uses it out and about LTG Duration 07/09 Gait Impairment Gait tolerance Short Term Goal (STG) Pt will be able to complete the 6 min walk achieving 600 ft with SPC only 1 standing rest break to inc activity tolerance 03/24-515ft w/SPC w/1 standing rest break 05/06-558.8ft w/SPC w/o standing rest break 06/18-508ft w/o standing rest break STG Duration 06/13 Halfway Goal (LTG) Pt will be able to complete the 6 min walk achieving 800 ft with SPC taking no standing rest breaks and no inc in pain from baseline 05/06/2024 568.8 feet 6 min walk test with SPC no standing rests 06/18-508ft w/o standing rest break LTG Duration 07/09 Balance Impairment Balance Entry Level Chemist Goal (LTG) Pt will inc Tinetti balance assessment score from to to increase balance and gait for functional activity tolerance and dec fall risk 03/24- 06/18- LTG Duration 07/09 Assessment Summary Assessment Pt made progress w/PT at start of PT but at this time is plateauing in progress. Plan is to DC to [facility] and encouraged pt to consider gym membership w/[employer] class and/ or [employer] program. Physical Therapy Plan Discharge Physical Therapy Discharge Reasons Plateau in Progress
== END 2024-06-24 08:29 | disposition home or self-care (01) ==
LOC: PHYS 08:15
PROVIDERS: Family Provider Family Medicine; PCP Family Medicine; Referring Provider Family Medicine; Visit Provider Family Medicine
DX: M54.50 Low back pain, unspecified (principal); R53.1 Weakness; R26.89 Other abnormalities of gait and mobility; R26.2 Difficulty in walking, not elsewhere classified; M25.561 Pain in right knee; M25.562 Pain in left knee
CPT/HCPCS: 97110; 97112; 97140; 97162; 97530

== ENCOUNTER → 2024-06-25 09:27 | Outpatient (CLI) | payer MEDICARE, SELFPAY ==
[2023-12-10 16:27] VITALS: BMI 27.9
[2024-06-25 10:30] VITALS: BP 114/54; PULSE 71; RESP 18; TEMP 36.9; O2SAT 98
[2024-06-25] MEDS: EPOETIN ALFA-EPBX 20,000 UNIT/ML VIAL 20000 UNIT SUBCUT (11:11)
== END ==
LOC: ONC 09:27
PROVIDERS: Family Provider Family Medicine; PCP Family Medicine; Referring Provider Internal Medicine Nephrology; Visit Provider Internal Medicine Nephrology
DX: N18.32 Chronic kidney disease, stage 3b (principal); D63.1 Anemia in chronic kidney disease
CPT/HCPCS: 80048; 83036; 85014; 85018; 96372; Q5106

== ENCOUNTER → 2024-07-09 10:18 | Outpatient (CLI) | payer MEDICARE, SELFPAY ==
[2023-12-10 16:27] VITALS: BMI 27.9
[2024-07-09 10:51] VITALS: BP 105/54; PULSE 61; RESP 18; TEMP 36.9; O2SAT 97
[2024-07-09 11:00] LABS: Hematocrit 32.1 % (41-53); Hemoglobin 10.5 g/dL (13.5-17.5)
[2024-07-09] MEDS: EPOETIN ALFA-EPBX 20,000 UNIT/ML VIAL 20000 UNIT SUBCUT (11:19)
[2024-07-09 11:46] LABS: Add Manual Diff / Slide Review NO; Basophils Absolute Auto 100 /uL (0-100); Basophils Percent Auto 0.8 % (0-2); Eosinophils Absolute Auto 100 /uL (0-450); Eosinophils Percent Auto 1.8 % (2-4); Hematocrit 31.9 % (41-53); Hemoglobin 10.3 g/dL (13.5-17.5); Lymphocytes Absolute Auto 2400 /uL (1100-4500); Lymphocytes Percent Auto 31.6 % (25-40); Mean Corpuscular HGB Conc 32.3 % (30-36); Mean Corpuscular Hemoglobin 32.4 PG (26-34); Mean Corpuscular Volume 100.2 fL (80-100); Monocytes Absolute Auto 900 /uL (0-900); Monocytes Percent Auto 11.2 % (3-14); Neutrophils Absolute Auto 4200 /uL (1500-7000); Neutrophils Percent Auto 54.6 % (50-75); Platelet Count 184 X10^3/uL (150-400); Red Blood Cell Count 3.18 X10^6/uL (4.5-5.9); Red Cell Distribution Width 16.9 % (11.6-14.8); White Blood Cell Count 7.6 X10^3/uL (4.5-11.0)
[2024-07-09 12:09] LABS: Alanine Aminotransferase 15 IU/L (<50); Albumin 3.1 g/dL (3.5-5.0); Albumin Globulin Ratio 1.2 (1.0-2.8); Alkaline Phosphatase 91 U/L (38-126); Aspartate Aminotransferase 25 IU/L (17-59); BUN Creatinine Ratio 27.3 (6-22); Bilirubin Total 0.4 mg/dL (0.2-1.3); Blood Urea Nitrogen 59 mg/dL (9-20); Calcium 8.8 mg/dL (8.4-10.2); Carbon Dioxide 21 mmol/L (22-32); Chloride 111 mmol/L (98-107); Estimated Glomerular Filt Rate 29 mL/min (>60); Globulin 2.6 g/dL (1.7-4.1); Glucose 123 mg/dL (80-110); HEMOLYSIS < 15 (0-50); Magnesium 1.8 mg/dL (1.6-2.3); Phosphorous 4.4 mg/dL (2.3-3.7); Potassium 4.8 mmol/L (3.4-5.1); Sodium 138 mmol/L (137-145); Total Protein 5.7 g/dL (6.3-8.2)
[2024-07-10 07:11] LABS: Tacrolimus 3.9 ng/mL (2.0-20.0)
[2024-07-11 16:40] LABS: CMV DNA, Quant Real Time PCR Negative (Negative)
== END ==
PROVIDERS: Internal Medicine Infectious Disease; Family Provider Family Medicine; PCP Family Medicine; Referring Provider Internal Medicine Nephrology; Visit Provider Internal Medicine Nephrology
DX: E83.42 Hypomagnesemia (principal); Z94.2 Lung transplant status; N18.32 Chronic kidney disease, stage 3b; D63.1 Anemia in chronic kidney disease
CPT/HCPCS: 36415; 80053; 80197; 83735; 84100; 85014; 85018; 85025; 87497; 96372; Q5106

== ENCOUNTER → 2024-07-23 09:24 | Outpatient (CLI) | payer MEDICARE, SELFPAY ==
[2023-12-10 16:27] VITALS: BMI 27.9
[2024-07-23 09:55] LABS: Hematocrit 32.1 % (41-53); Hemoglobin 10.5 g/dL (13.5-17.5)
[2024-07-23 09:57] VITALS: BP 98/52; PULSE 56; RESP 16; TEMP 36.5; O2SAT 97
[2024-07-23] MEDS: EPOETIN ALFA-EPBX 20,000 UNIT/ML VIAL 20000 UNIT SUBCUT (10:14)
[2024-07-23 10:23] VITALS: BP 106/41; PULSE 59; RESP 16
== END ==
LOC: ONC 09:24
PROVIDERS: Family Provider Family Medicine; PCP Family Medicine; Referring Provider Internal Medicine Nephrology; Visit Provider Internal Medicine Nephrology
DX: N18.32 Chronic kidney disease, stage 3b (principal); D63.1 Anemia in chronic kidney disease
CPT/HCPCS: 85014; 85018; 96372; Q5106

== ENCOUNTER → 2024-08-06 09:22 | Outpatient (CLI) | payer MEDICARE, SELFPAY ==
[2023-12-10 16:27] VITALS: BMI 27.9
[2024-08-06 09:45] VITALS: BP 77/40; PULSE 64; RESP 18; TEMP 36.5; O2SAT 99
[2024-08-06 09:47] VITALS: BP 77/45; PULSE 65
[2024-08-06 09:51] LABS: Hematocrit 35.6 % (41-53); Hemoglobin 11.5 g/dL (13.5-17.5)
[2024-08-06 10:00] VITALS: BP 88/42; PULSE 62; RESP 16
[2024-08-06 10:06] LABS: HEMOLYSIS < 15 (0-50); Iron 72 ug/dL (49-181)
[2024-08-06 10:07] LABS: BUN Creatinine Ratio 17.5 (6-22); Blood Urea Nitrogen 42 mg/dL (9-20); Calcium 9.9 mg/dL (8.4-10.2); Carbon Dioxide 24 mmol/L (22-32); Chloride 107 mmol/L (98-107); Estimated Glomerular Filt Rate 26 mL/min (>60); Glucose 113 mg/dL (80-110); HEMOLYSIS < 15 (0-50); Potassium 4.6 mmol/L (3.4-5.1); Sodium 137 mmol/L (137-145)
[2024-08-06 10:10] VITALS: BP 83/48; PULSE 64; RESP 16; O2SAT 99
[2024-08-06 10:17] LABS: Percent Iron Saturation 27 % (20-50); Total Iron Binding Capacity 268 ug/dL (261-462); Transferrin 234 mg/dL (206-381)
[2024-08-06 10:38] VITALS: BP 99/51; PULSE 66; RESP 17; TEMP 36.5; O2SAT 99
[2024-08-06 10:43] LABS: Ferritin 105 ng/mL (18-464)
--- NOTE | 2024-08-06 10:46 | PC.NURSE ---
1000 Low BP readings verified with both arms checked automatic cuff and manual cuff reading for accuracy, patient given cup of water to drink and vitals repeated (see flowsheet for VS) Patient denies dizzines, fatigue, shortness of breath, tachycardia with standing, exertional dyspnea, weakness, or unsteadiness; Patient denies any complaints. Patient skin dry warm loose 1020 Called [facility] Office Dr Gonzalez r/e patients low blood pressure (see flowsheet for detailed VS readings and times) and HGB 11.5; BP ranged SBP 77-88/DBP 40-48 MAP 50's Patient given 1 cup of water to drink with those lower initial BP (he had not had breakfast or more than a couple sips of water this am prior to arrival) and repeated Vitals; Message left with Kenisha RN for DR Gonzalez PH# [phone] per RN Kenisha Nurse for Dr Gonzalez ([facility]) Ok to give Retacrit today, no additional instructions regarding Blood Pressure or precautions for patient. 1038 repeat Blood Pressure 99/51 Medication on order from Pharmacy to give dose today 08/06/24 Patient instructed on drinking a glass of water or cranberry juice per his preference when waking up in morning before his appointment here to help with inital lower bp in AM per patient its always low here first think in AM
[2024-08-06] MEDS: EPOETIN ALFA-EPBX 20,000 UNIT/2 ML VIAL 20000 UNIT SUBCUT (10:58)
== END ==
PROVIDERS: Family Provider Family Medicine; PCP Family Medicine; Referring Provider Internal Medicine Nephrology; Visit Provider Internal Medicine Nephrology
DX: D63.1 Anemia in chronic kidney disease (principal); N18.32 Chronic kidney disease, stage 3b
CPT/HCPCS: 80048; 82728; 83540; 83550; 85014; 85018; 96372; Q5106

== ENCOUNTER 2024-08-12 20:12 | Emergency (ER) | payer MEDICARE, SELFPAY ==
[2023-12-10 16:27] VITALS: BMI 27.9
[2024-08-12] VITALS (9 sets, daily range): BP systolic 121–158; BP diastolic 72–88; PULSE 92–100; RESP 16–24; TEMP 37; O2SAT 96–99; BMI 26.6
--- NOTE | 2024-08-12 20:21 | PC.NURSE ---
pt states he has been weak, pt is aao x 3 with frequent urination, per EMS states pt has been lethargic, pt is alert joking with staff, no c/o n/v/d
[2024-08-12 20:36] LABS: Add Manual Diff / Slide Review NO; Basophils Absolute Auto 100 /uL (0-100); Basophils Percent Auto 0.9 % (0-2); Eosinophils Absolute Auto 200 /uL (0-450); Eosinophils Percent Auto 2.5 % (2-4); Hematocrit 37.3 % (41-53); Hemoglobin 12.2 g/dL (13.5-17.5); Lymphocytes Absolute Auto 2300 /uL (1100-4500); Lymphocytes Percent Auto 33.5 % (25-40); Mean Corpuscular HGB Conc 32.7 % (30-36); Mean Corpuscular Hemoglobin 32.3 PG (26-34); Mean Corpuscular Volume 98.7 fL (80-100); Monocytes Absolute Auto 1000 /uL (0-900); Monocytes Percent Auto 14.6 % (3-14); Neutrophils Absolute Auto 3300 /uL (1500-7000); Neutrophils Percent Auto 48.5 % (50-75); Platelet Count 216 X10^3/uL (150-400); Red Blood Cell Count 3.78 X10^6/uL (4.5-5.9); Red Cell Distribution Width 15.8 % (11.6-14.8); White Blood Cell Count 6.7 X10^3/uL (4.5-11.0)
--- NOTE | 2024-08-12 20:41 | EKG_ITS ---
[place] [address] [place] [id number] Test Date: 2024-08-12 Pat Name: Darryl Jacobs Department: Room: Gender: Male Cork Mixer: PJ : [id number] Requested By: Order Number: [id number] Reading MD: David Mohan MD Measurements Intervals [place] Rate: 96 P: 23 [place]: 226 QRS: -52 QRSD: 154 T: -5 QT: 388 QTc: 490 Interpretive Statements Sinus rhythm with 1st degree AV block with premature atrial complexes Right bundle branch block Left anterior fascicular block Bifascicular block Minimal voltage criteria for LVH, may be normal variant ( R in aVL ) NO SIGNIFICANT CHANGE FROM PRIOR TRACING Electronically Signed On 08-14-2024 7:36:06 PST by David Mohan MD
[2024-08-12 20:47] LABS: Alanine Aminotransferase 19 IU/L (<50); Albumin 3.6 g/dL (3.5-5.0); Albumin Globulin Ratio 1.3 (1.0-2.8); Alkaline Phosphatase 82 U/L (38-126); Aspartate Aminotransferase 32 IU/L (17-59); BUN Creatinine Ratio 13.7 (6-22); Bilirubin Total 0.5 mg/dL (0.2-1.3); Blood Urea Nitrogen 36 mg/dL (9-20); Calcium 10.7 mg/dL (8.4-10.2); Carbon Dioxide 23 mmol/L (22-32); Chloride 102 mmol/L (98-107); Estimated Glomerular Filt Rate 23 mL/min (>60); Globulin 2.8 g/dL (1.7-4.1); Glucose 112 mg/dL (80-110); HEMOLYSIS < 15 (0-50); Potassium 4.3 mmol/L (3.4-5.1); Sodium 134 mmol/L (137-145); Total Protein 6.4 g/dL (6.3-8.2)
[2024-08-12 20:53] LABS: Lactate (Lactic Acid) 1.9 mmol/L (0.7-2.1)
[2024-08-12 21:00] LABS: Troponin I 0.036 ng/mL (0.01-0.034)
[2024-08-12 21:05] LABS: Procalcitonin 0.114 ng/mL (<0.5)
[2024-08-12 21:22] LABS: Bacteria Urine None Seen; Hyaline Casts Urine 1-5/LPF; RBC Urine None Seen (0-5/HPF); Squamous Epithelial Cell Urine 0-1 /HPF (0-5/HPF); Urine Volume 10mL (spun); WBC Urine None Seen (0-5/HPF)
[2024-08-12 21:23] LABS: Culture Indicated Urine Cult Not Indicated
[2024-08-12 23:03] LABS: NT-proBNP (BNP-Adult 18+) 1720 pg/mL (<450)
[2024-08-12 23:06] LABS: Troponin I 0.028 ng/mL (0.01-0.034)
--- NOTE | 2024-08-12 23:26 | ED.GENADULT ---
HPI - General Adult General Chief complaint: Weakness Stated complaint: Difficulty Urination Time Seen by Provider: 08/12/24 21:56 Source: patient and EMS Mode of arrival: EMS History of Present Illness HPI narrative: 83-year-old male with generalized weakness, seems more sleepy per . History of chronic kidney disease, lung transplant, chronic immunosuppression, diabetes mellitus, hyperlipidemia, history of colon cancer. No substance abuse known. No changes in medications or new medications. No fevers or chills. No recent cough. No diarrhea, black stools, red stools. Denies nausea and vomiting. Does not believe his in take orally has necessarily increased or decreased recent weeks. No fevers, decerased intake, diarrhea, black stools, red stools. No pain abdomen, pelvis, back, chest, extremities. No shortness of breath. Related Data Home Medications Medication Instructions Recorded Confirmed prednisone 5 mg tablet 5 mg PO DAILY 09/18/20 06/17/24 tacrolimus 1 mg capsule, 1 mg PO QAM 09/18/20 06/17/24 immediate-release tamsulosin 0.4 mg capsule 0.4 mg PO DAILY 10/30/22 06/17/24 epoetin hanh 20,000 unit/2 mL See Rx Instructions .Route .COMPLEX 11/16/22 06/17/24 injection solution (Epogen) ascorbic acid (vitamin C) 500 mg 500 mg PO DAILY 04/17/23 06/17/24 capsule sodium di- and 1 tab PO DAILY 04/17/23 06/17/24 monophosphate-potassium phos monobasic 250 mg tablet sulfamethoxazole 800 See Rx Instructions .Route .COMPLEX 04/30/23 06/17/24 mg-trimethoprim 160 mg tablet ferrous sulfate 325 mg (65 mg 325 mg PO 3XW 09/26/23 06/17/24 iron) tablet (FeroSul) itraconazole 100 mg capsule 100 mg PO BID 12/10/23 06/17/24 gabapentin 100 mg capsule 200 mg PO .every 8 hrs 04/17/24 06/17/24 omeprazole 20 mg capsule,delayed 20 mg PO BID 04/17/24 06/17/24 release sitagliptin phosphate 50 mg tablet 50 mg PO DAILY 04/17/24 06/17/24 (Januvia) Previous Rx's Medication Instructions Recorded valganciclovir 450 mg tablet 450 mg PO .three times weekly CMV 08/29/23 prophylaxis #39 tabs levothyroxine 175 mcg tablet 175 mcg PO 0600 #90 tabs 01/14/24 (Synthroid) bumetanide 2 mg tablet 2 mg PO BID edema #60 tabs 05/01/24 famotidine 20 mg tablet (Pepcid) 20 mg PO BID #60 tabs 05/27/24 potassium chloride 10 mEq 10 meq PO DAILY #30 tabs 05/27/24 tablet,extended release(part/cryst) metoprolol succinate 25 mg 12.5 mg (1/2 x 25 mg) PO DAILY #50 06/17/24 tablet,extended release 24 hr tabs Allergies Allergy/AdvReac Type Severity Reaction Status Date / Time No Known Drug Allergies Allergy Verified 06/17/24 10:28 Review of Systems Review of Systems Narrative: See HPI Patient History Medical History (Updated 08/13/24 @ 02:21 by Baljeet Guzmán MD) Partial obstruction of small intestine COVID-19 Aortic stenosis Encounter for subsequent annual wellness visit (AWV) in Medicare patient Macrocytosis CKD (chronic kidney disease) stage 3, GFR 30-59 ml/min Chronic low back pain Hearing impaired IPF (idiopathic pulmonary fibrosis) Hypothyroid Diabetes Hyperlipidemia Hypertension Coronary artery disease Anemia Tubular adenoma of colon Surgical History Status post lung transplantation Hx of cholecystectomy Hx of bilateral cataract extraction H/O lung transplant (2009) Family History Father Patient denies significant medical history Mother Patient denies significant medical history Social History marital status: household members: spouse Smoking Status: Former smoker alcohol intake: former Smoking Status: Former smoker alcohol intake frequency: holidays/special occasions only Exam Narrative Exam Narrative: GENERAL: Well-developed patient, in mild distress. HEAD: Atraumatic. Normocephalic. EYES: Pupils equal round and reactive. Extraocular motions intact. No scleral icterus. No injection or drainage. ENT: Nose without bleeding, purulent drainage. Throat without erythema, tonsillar hypertrophy or exudate. Airway patent. NECK: Trachea midline. Non tender CARDIOVASCULAR: Regular rate and rhythm without murmurs, gallops, or rubs. RESPIRATORY: Clear to auscultation. Breath sounds equal bilaterally. No wheezes, rales, or rhonchi. GASTROINTESTINAL: Abdomen soft, non-tender, nondistended. EXTREMITIES: No edema or joint tenderness. BACK: Nontender without deformity or crepitance. No flank tenderness. NEURO: AOx3. Motor functions grossly nonfocal SKIN: No rash or erythema of visible areas Initial Vital Signs Initial Vital Signs: Vital Signs Pulse Rate 95 H 08/12/24 20:14 Blood Pressure 146/83 H 08/12/24 20:14 Pulse Oximetry 97 08/12/24 20:14 Course Orders Ordered: ED Orders 08/12/24 22:25 NT-proBNP (BNP-Adult 18+) Stat Troponin I Stat 08/13/24 00:04 TSH [Thyroid Stimulating Hormone] Stat 08/13/24 00:07 CT head/brain wo con Stat Vital Signs Vital signs: Vital Signs - 8 hr 08/12/24 22:30 08/12/24 22:30 08/12/24 23:00 Pulse Rate 96 H 95 H Respiratory Rate 18 18 Blood Pressure 143/75 H Pulse Oximetry 98 97 08/12/24 23:00 08/12/24 23:30 08/12/24 23:30 Pulse Rate 97 H Respiratory Rate 24 Blood Pressure 121/77 158/77 H Pulse Oximetry 98 08/13/24 00:00 08/13/24 00:00 08/13/24 00:30 Pulse Rate 99 H 102 H Respiratory Rate 20 20 Blood Pressure 138/71 Pulse Oximetry 84 L 99 08/13/24 01:00 08/13/24 01:30 08/13/24 02:00 Pulse Rate 99 H 95 H 94 H Respiratory Rate 22 17 16 Blood Pressure Pulse Oximetry 99 97 96 08/13/24 02:36 Pulse Rate Respiratory Rate Blood Pressure 125/66 Pulse Oximetry Medical Decision Making Lab Data Lab results reviewed: Yes I reviewed the patient's lab results. Lab results narrative: White blood cell count 6700, hemoglobin 12.2, platelets adequate. BUN 36 with creatinine 2.63 noted. Sodium 134, potassium 4.3, serum CO2 23. Glucose 112. BUN 36 with creatinine 2.63. 08/12/24 20:05 08/12/24 20:05 Labs: Lab Results 08/12/24 08/12/24 08/12/24 Range/Units 00:07 20:05 20:25 WBC 6.7 (4.5-11.0) X10^3/uL RBC 3.78 L (4.5-5.9) X10^6/uL Hgb 12.2 L (13.5-17.5) g/dL Hct 37.3 L (41-53) % MCV 98.7 (80-100) fL MCH 32.3 (26-34) PG MCHC 32.7 (30-36) % RDW 15.8 H (11.6-14.8) % Plt Count 216 (150-400) X10^3/uL Neut % (Auto) 48.5 L (50-75) % Lymph % (Auto) 33.5 (25-40) % [place] % (Auto) 14.6 H (3-14) % Eos % (Auto) 2.5 (2-4) % Baso % (Auto) 0.9 (0-2) % Neut # (Auto) 3300 (3371-9964) /uL Lymph # (Auto) 2300 (6757-2411) /uL [place] # (Auto) 1000 H (0-900) /uL Eos # (Auto) 200 (0-450) /uL Baso # (Auto) 100 (0-100) /uL Sodium 134 L (137-145) mmol/L Potassium 4.3 (3.4-5.1) mmol/L Chloride 102 (98-107) mmol/L Carbon Dioxide 23 (22-32) mmol/L BUN 36 H (9-20) mg/dL Creatinine 2.63 H (0.66-1.25) mg/dL Estimated GFR 23 L (>60) mL/min BUN/Creatinine Ratio 13.7 (6-22) Glucose 112 H (80-110) mg/dL Lactate 1.9 (0.7-2.1) mmol/L Calcium 10.7 H (8.4-10.2) mg/dL Total Bilirubin 0.5 (0.2-1.3) mg/dL AST 32 (17-59) IU/L ALT 19 (<50) IU/L Alkaline Phosphatase 82 (38-126) U/L Troponin I 0.036 H (0.01-0.034) ng/mL NT-Pro-B Natriuret Pep (<450) pg/mL Total Protein 6.4 (6.3-8.2) g/dL Albumin 3.6 (3.5-5.0) g/dL Globulin 2.8 (1.7-4.1) g/dL Albumin/Globulin Ratio 1.3 (1.0-2.8) Procalcitonin 0.114 (<0.5) ng/mL TSH 17.8 H (0.47-4.68) uIU/mL Urine RBC None seen (0-5/HPF) Urine WBC None seen (0-5/HPF) Ur Squamous Epith Cells 0-1 /hpf (0-5/HPF) Urine Bacteria None seen (None) Hyaline Casts 1-5/lpf (None) Ur Culture Indicated? Cult not indicated Vol Urine Centrifuged 10ml (spun) 08/12/24 Range/Units 22:25 WBC (4.5-11.0) X10^3/uL RBC (4.5-5.9) X10^6/uL Hgb (13.5-17.5) g/dL Hct (41-53) % MCV (80-100) fL MCH (26-34) PG MCHC (30-36) % RDW (11.6-14.8) % Plt Count (150-400) X10^3/uL Neut % (Auto) (50-75) % Lymph % (Auto) (25-40) % [place] % (Auto) (3-14) % Eos % (Auto) (2-4) % Baso % (Auto) (0-2) % Neut # (Auto) (0604-2356) /uL Lymph # (Auto) (6989-3701) /uL [place] # (Auto) (0-900) /uL Eos # (Auto) (0-450) /uL Baso # (Auto) (0-100) /uL Sodium (137-145) mmol/L Potassium (3.4-5.1) mmol/L Chloride (98-107) mmol/L Carbon Dioxide (22-32) mmol/L BUN (9-20) mg/dL Creatinine (0.66-1.25) mg/dL Estimated GFR (>60) mL/min BUN/Creatinine Ratio (6-22) Glucose (80-110) mg/dL Lactate (0.7-2.1) mmol/L Calcium (8.4-10.2) mg/dL Total Bilirubin (0.2-1.3) mg/dL AST (17-59) IU/L ALT (<50) IU/L Alkaline Phosphatase (38-126) U/L Troponin I 0.028 (0.01-0.034) ng/mL NT-Pro-B Natriuret Pep 1720 H (<450) pg/mL Total Protein (6.3-8.2) g/dL Albumin (3.5-5.0) g/dL Globulin (1.7-4.1) g/dL Albumin/Globulin Ratio (1.0-2.8) Procalcitonin (<0.5) ng/mL TSH (0.47-4.68) uIU/mL Urine RBC (0-5/HPF) Urine WBC (0-5/HPF) Ur Squamous Epith Cells (0-5/HPF) Urine Bacteria (None) Hyaline Casts (None) Ur Culture Indicated? Vol Urine Centrifuged Urine Dip Bedside Urine Glucose Negative Bedside Urine Bilirubin + 1 Bedside Urine Ketone +/- 5 Urine Specific [place] 1.025 Bedside Urine Occult Blood - Negative Bedside Urine pH 5.5 Bedside Urine Protein - Negative Bedside Urine Urobilinogen - Negative Bedside Urine Nitrite - Negative Bedside Urine Leukocytes - Negative Esterase Point of care testing: Urine Dip Bedside Urine Glucose Negative Bedside Urine Bilirubin + 1 Bedside Urine Ketone +/- 5 Urine Specific [place] 1.025 Bedside Urine Occult Blood - Negative Bedside Urine pH 5.5 Bedside Urine Protein - Negative Bedside Urine Urobilinogen - Negative Bedside Urine Nitrite - Negative Bedside Urine Leukocytes - Negative Esterase Imaging Data CT scan - head: Radiologist's Impression: [place] [address] CT Scan Report Signed Patient: Darryl Jacobs MR#: [id number] : 1940 Acct:[id number] Age/Sex: 83 / M Date of Service: 08/13/24 Loc: ED Accession Number: [id number] Procedure: CT head/brain wo con Ordering Provider: Baljeet Guzmán MD PROCEDURE: CT HEAD/BRAIN WO CON INDICATIONS: alt MSE, sleepy TECHNIQUE: Noncontrast 4.5 mm thick angled axial sections acquired from the foramen magnum to the vertex, with coronal and sagittal reformats. For radiation dose reduction, the following was used: automated exposure control, adjustment of mA and/or kV according to patient size. COMPARISON: [facility], CT, CT HEAD/BRAIN WO CON, 12/03/2023, 12:00. FINDINGS: Image quality: Diagnostic. CSF spaces: Basal cisterns are patent. No extra-axial fluid collections. Ventricles are normal in size and shape. Brain: No midline shift. No intracranial masses or hemorrhage. No area of hypodensity in a large vascular distribution to suggest acute infarction. Periventricular hypodensity consistent with chronic microvascular ischemic change. Age-related parenchymal loss. Skull and face: Calvarium and visualized facial bones are intact, without suspicious lesions. Sinuses: Ethmoid and right sphenoid sinus opacification. Mastoids are clear. IMPRESSION: No acute intracranial pathology. Chronic microvascular ischemic disease. Chronic sinusitis. Dictated by: Joshua Morales M.D. on 08/13/2024 at 0:43 Approved by: Joshua Morales M.D. on 08/13/2024 at 0:46 ECG Data Attestation: I personally reviewed and interpreted this ECG as follows: Interpretation: Normal sinus rhythm with first-degree AV block, [place] 226. Ventricular rate 96. Bifascicular block pattern noted. QRS 154, QTC 490. MDM Narrative Medical decision making narrative: 83-year-old male with generalized weakness, history of lung transplant, chronic immunosuppression, diabetes, hypertension, coronary artery disease. Denies chest pain, denies shortness of breath. believes the has been more sleepy and less results of lately. She would like workup, /patient concurs. CT head ordered, labs pending. EKG without obvious ischemic changes. Troponin negative. CT head no acute changes. Electrolytes unremarkable, renal insufficiency noted, elevated in past, slight increase from most recent. Elevated BNP, similar range to prior. Troponin measurable but low x2, not increasing. Does not seem to meet any criteria for admission at this time. Patient was able to ambulate, took oral fluids, requests to go home, discharged home with . Follow up with PCP as outpatient for now. Discharge Plan Departure Patient Disposition: Home Clinical Impression: Generalized weakness Activity Restrictions/Additional Instructions: Generalized weakness complaint. History of lung transplantation, chronic immunosuppression, diabetes, coronary artery disease, history of colon cancer, chronic kidney disease. No fever on triage. Screening labs unremarkable. Urinalysis negative. CT head study was also performed and was negative. No oxygen requirement. No obvious indications for admission at this time. You requested to go home. BNP test elevated, suspicious for some degree of congestive heart failure, however previous studies significantly higher, even double today's study results. EKG and serial blood tests not suggestive of heart attack at this time. Electrolytes unremarkable. Follow up with your regular doctor in the next couple of days for further assessment. Hemoglobin 12, higher level than in recent studies, worsening anemia does not seem to be in explanation at this time for weakness. No obvious intoxication state. Thyroid test is still pending at this time, can be checked in follow up with your regular doctor. Return to this/nearest emergency department for any change worsening symptoms or any concerns prior Prescriptions: No Action Epogen 20,000 unit/2 mL solution See Rx Instructions .ROUTE .COMPLEX Rx Instructions: Pt states receives injection every other week on Wednesdays. valganciclovir 450 mg tablet 450 mg PO .three times weekly Qty: 39 4RF Rx Instructions: M/W/ levothyroxine [Synthroid] 175 mcg tablet 175 mcg PO 0600 Qty: 90 3RF tamsulosin 0.4 mg capsule 0.4 mg PO DAILY sulfamethoxazole-trimethoprim 800-160 mg tablet See Rx Instructions .ROUTE .COMPLEX Rx Instructions: 09/04 tab sunday, sunday, sunday bumetanide 2 mg tablet 2 mg PO BID Qty: 60 11RF ferrous sulfate [FeroSul] 325 mg (65 mg iron) tablet 325 mg PO 3XW Rx Instructions: M/W/ metoprolol succinate 25 mg tablet extended release 24 hr 12.5 mg PO DAILY Qty: 50 3RF gabapentin 100 mg capsule 200 mg PO .every 8 hrs Januvia 50 mg tablet 50 mg PO DAILY Rx Instructions: Taking Jardiance in the a.m. and Januvia in the p.m famotidine [Pepcid] 20 mg tablet 20 mg PO BID Qty: 60 5RF potassium chloride 10 mEq tablet,ER particles/crystals 10 meq PO DAILY Qty: 30 11RF prednisone 5 mg tablet 5 mg PO DAILY Patient Comments: TAKE 1 TABLET BY MOUTH EVERY DAY tacrolimus 1 mg capsule 1 mg PO QAM Patient Comments: TAKE 1 CAPSULE BY MOUTH EVERY DAY IN THE MORNING itraconazole 100 mg capsule 100 mg PO BID ascorbic acid (vitamin C) 500 mg capsule 500 mg PO DAILY sod phos di, mono-K phos mono 250 mg tablet 1 tab PO DAILY omeprazole 20 mg capsule,delayed release(DR/EC) 20 mg PO BID Referrals: Shy Angel DO [Primary Care Provider] - Stand Alone Forms: Patient Portal/API/Survey
[2024-08-13] VITALS: BP 138/71; PULSE 99; RESP 20; O2SAT 84
--- NOTE | 2024-08-13 00:07 | DI.CT.S_ITS ---
PROCEDURE: CT HEAD/BRAIN WO CON INDICATIONS: alt MSE, sleepy TECHNIQUE: Noncontrast 4.5 mm thick angled axial sections acquired from the foramen magnum to the vertex, with coronal and sagittal reformats. For radiation dose reduction, the following was used: automated exposure control, adjustment of mA and/or kV according to patient size. COMPARISON: [facility], CT, CT HEAD/BRAIN WO CON, 12/03/2023, 12:00. FINDINGS: Image quality: Diagnostic. CSF spaces: Basal cisterns are patent. No extra-axial fluid collections. Ventricles are normal in size and shape. Brain: No midline shift. No intracranial masses or hemorrhage. No area of hypodensity in a large vascular distribution to suggest acute infarction. Periventricular hypodensity consistent with chronic microvascular ischemic change. Age-related parenchymal loss. Skull and face: Calvarium and visualized facial bones are intact, without suspicious lesions. Sinuses: Ethmoid and right sphenoid sinus opacification. Mastoids are clear. IMPRESSION: No acute intracranial pathology. Chronic microvascular ischemic disease. Chronic sinusitis. Dictated by: Joshua Morales M.D. on 08/13/2024 at 0:43 Approved by: Joshua Morales M.D. on 08/13/2024 at 0:46
[2024-08-13 00:30] VITALS: PULSE 102; RESP 20; O2SAT 99
[2024-08-13 00:48] LABS: Thyroid Stimulating Hormone 17.8 uIU/mL (0.47-4.68)
[2024-08-13 01:00] VITALS: PULSE 99; RESP 22; O2SAT 99
[2024-08-13 01:30] VITALS: PULSE 95; RESP 17; O2SAT 97
--- NOTE | 2024-08-13 01:58 | PC.NURSE ---
pt wanting to leave Dr Guzmán informed, no new orders received
[2024-08-13 02:00] VITALS: PULSE 94; RESP 16; O2SAT 96
--- NOTE | 2024-08-13 02:19 | PC.NURSE ---
Dr Guzmán in to talk with pt
[2024-08-13 02:36] VITALS: BP 125/66
== END 2024-08-13 02:38 | disposition home or self-care (01) ==
PROVIDERS: Emergency Provider Emergency Medicine; Family Provider Family Medicine; PCP Family Medicine
DX: R53.1 Weakness (principal); D84.9 Immunodeficiency, unspecified; R42 Dizziness and giddiness; R41.82 Altered mental status, unspecified; Z94.2 Lung transplant status
CPT/HCPCS: 36415; 70450; 80053; 81003; 81015; 83605; 83880; 84145; 84443; 84484; 85025; 93005; 93010; 99284

== ENCOUNTER → 2024-08-20 09:16 | Outpatient (CLI) | payer MEDICARE, SELFPAY ==
[2023-12-10 16:27] VITALS: BMI 27.9
[2024-08-20 09:44] VITALS: BP 96/62; PULSE 81; RESP 18; TEMP 36.8; O2SAT 98
[2024-08-20 09:45] LABS: Hematocrit 35.6 % (41-53); Hemoglobin 11.5 g/dL (13.5-17.5)
[2024-08-20] MEDS: EPOETIN ALFA-EPBX 20,000 UNIT/ML VIAL 20000 UNIT SUBCUT (09:57)
[2024-08-20 10:57] LABS: Free T4, Direct Thyroxine 1.75 ng/dL (0.78-2.19)
== END ==
LOC: ONC 09:16
PROVIDERS: Family Provider Family Medicine; PCP Family Medicine; Referring Provider Internal Medicine Nephrology; Visit Provider Internal Medicine Nephrology
DX: E03.9 Hypothyroidism, unspecified (principal); D63.1 Anemia in chronic kidney disease; N18.32 Chronic kidney disease, stage 3b
CPT/HCPCS: 84439; 84443; 85014; 85018; 96372; Q5106

== ENCOUNTER 2024-08-28 11:24 | Emergency (ER) | payer MEDICARE, SELFPAY ==
[2023-12-10 16:27] VITALS: BMI 27.9
[2024-08-28] VITALS (7 sets, daily range): BP systolic 98–173; BP diastolic 55–82; PULSE 86–91; RESP 16–19; O2SAT 98–100
--- NOTE | 2024-08-28 13:43 | DI.RAD.S_ITS ---
PROCEDURE: XR CHEST 1V INDICATIONS: chest pain TECHNIQUE: One view of the chest was acquired. COMPARISON: [facility], CR, XR CHEST 1V, 03/05/2024, 10:32. [facility], CR, XR CHEST 1V, 12/10/2023, 12:38. FINDINGS: Surgical changes and devices: Sternal hardware and partially seen upper lumbar fusion hardware. Right upper quadrant surgical clips. Lungs and pleura: Low lung volumes. No dense airspace disease or pleural effusions on this single view study. Mild left mid and lower lung opacity. Mediastinum: Normal heart size, unchanged Bones and chest wall: Degenerative changes IMPRESSION: Mild left and lower lung opacity possibly early airspace disease versus edema or atelectasis. No pleural effusions. Limited single view study with low lung volumes. Dictated by: Noah Carrillo M.D. on 08/28/2024 at 14:19 Approved by: Noah Carrillo M.D. on 08/28/2024 at 14:20
--- NOTE | 2024-08-28 14:04 | EKG_ITS ---
[address] [address] Test Date: 2024-08-28 Pat Name: Darryl Jacobs Department: [facility] Room: Gender: Male Mailing Specialist: MARIELLE : 1940 Requested By: Order Number: [id number] Reading MD: Brad Marquez Measurements Intervals [place] Rate: 95 P: 25 DC: QRS: -59 QRSD: 154 T: -3 QT: 412 QTc: 517 Interpretive Statements Atrial flutter with 4:1 AV conduction Right bundle branch block Left anterior fascicular block Bifascicular block Minimal voltage criteria for LVH, may be normal variant ( R in aVL ) Septal infarct , age undetermined Electronically Signed On 08-28-2024 15:15:07 PST by Brad Marquez
[2024-08-28 14:15] LABS: Add Manual Diff / Slide Review NO; Basophils Absolute Auto 100 /uL (0-100); Basophils Percent Auto 0.7 % (0-2); Eosinophils Absolute Auto 200 /uL (0-450); Eosinophils Percent Auto 2.2 % (2-4); Hematocrit 35.7 % (41-53); Hemoglobin 11.7 g/dL (13.5-17.5); Lymphocytes Absolute Auto 2600 /uL (1100-4500); Lymphocytes Percent Auto 33.2 % (25-40); Mean Corpuscular HGB Conc 32.8 % (30-36); Mean Corpuscular Volume 97.5 fL (80-100); Monocytes Absolute Auto 700 /uL (0-900); Monocytes Percent Auto 8.5 % (3-14); Neutrophils Absolute Auto 4300 /uL (1500-7000); Neutrophils Percent Auto 55.4 % (50-75); Platelet Count 208 X10^3/uL (150-400); Red Blood Cell Count 3.66 X10^6/uL (4.5-5.9); Red Cell Distribution Width 16.8 % (11.6-14.8); White Blood Cell Count 7.8 X10^3/uL (4.5-11.0)
[2024-08-28 14:28] LABS: Alanine Aminotransferase 19 IU/L (<50); Albumin 3.5 g/dL (3.5-5.0); Albumin Globulin Ratio 1.3 (1.0-2.8); Alkaline Phosphatase 81 U/L (38-126); Aspartate Aminotransferase 34 IU/L (17-59); BUN Creatinine Ratio 19.5 (6-22); Bilirubin Total 0.7 mg/dL (0.2-1.3); Blood Urea Nitrogen 43 mg/dL (9-20); Calcium 10.7 mg/dL (8.4-10.2); Carbon Dioxide 20 mmol/L (22-32); Chloride 106 mmol/L (98-107); Creatine Kinase 96 U/L (55-170); Estimated Glomerular Filt Rate 28 mL/min (>60); Globulin 2.8 g/dL (1.7-4.1); Glucose 116 mg/dL (80-110); HEMOLYSIS < 15 (0-50); Lipase 58 U/L (23-300); Magnesium 1.7 mg/dL (1.6-2.3); Potassium 4.1 mmol/L (3.4-5.1); Sodium 134 mmol/L (137-145); Total Protein 6.3 g/dL (6.3-8.2)
[2024-08-28 14:39] LABS: NT-proBNP (BNP-Adult 18+) 1690 pg/mL (<450); Troponin I 0.032 ng/mL (0.01-0.034)
[2024-08-28 15:16] LABS: Prothrombin Time 11.3 SECONDS (9.4-12.5)
[2024-08-28 15:19] LABS: PTT Partial Thromboplastin Tim 35 SECONDS (25.1-36.5)
--- NOTE | 2024-08-28 16:22 | ED.GENADULT ---
HPI - General Adult General Chief complaint: Weakness Stated complaint: weakness, fall Time Seen by Provider: 08/28/24 14:26 Source: patient and family Mode of arrival: Ambulatory History of Present Illness HPI narrative: 83-year-old gentleman with a history of double lung transplant, hypothyroidism, hypertension, reflux, daily prednisone, tacrolimus, Bactrim brought in by family with complaints of weakness, confusion, decreased p.o. intake, increased sleeping for a number of months. Apparently fell on the and hurt her right ribs. he did not hit his head at the time. Patient is with his son who reports that he was seen in the emergency department for similar symptoms fairly recently. Patient is not sure that he is actually getting worse. He would simply like to be warmer and allowed to rest. Related Data Home Medications Medication Instructions Recorded Confirmed azithromycin 250 mg tablet 500 mg PO DAILY 08/28/24 08/28/24 itraconazole 100 mg capsule 100 mg PO BID 08/28/24 08/28/24 prednisone 5 mg tablet 5 mg PO DAILY 08/28/24 08/28/24 sitagliptin phosphate 50 mg tablet 50 mg PO DAILY 08/28/24 08/28/24 (Januvia) sulfamethoxazole 800 0.5 tab PO 3XW 08/28/24 08/28/24 mg-trimethoprim 160 mg tablet tacrolimus 1 mg capsule, 1 mg PO Q12H 08/28/24 08/28/24 immediate-release tamsulosin 0.4 mg capsule 0.4 mg PO QPM 08/28/24 08/28/24 valganciclovir 450 mg tablet 450 mg PO 3XW 08/28/24 08/29/24 Allergies Allergy/AdvReac Type Severity Reaction Status Date / Time No Known Drug Allergies Allergy Verified 08/15/24 15:46 Review of Systems Review of Systems Narrative: Pertinent positive and negative findings as per HPI Patient History Medical History (Updated 08/29/24 @ 10:49 by Nellie Esparza MD) Partial obstruction of small intestine COVID-19 Aortic stenosis Encounter for subsequent annual wellness visit (AWV) in Medicare patient Macrocytosis CKD (chronic kidney disease) stage 3, GFR 30-59 ml/min Chronic low back pain Hearing impaired IPF (idiopathic pulmonary fibrosis) Hypothyroid Diabetes Hyperlipidemia Hypertension Coronary artery disease Anemia Tubular adenoma of colon Surgical History Status post lung transplantation Hx of cholecystectomy Hx of bilateral cataract extraction H/O lung transplant (2009) Family History Father Patient denies significant medical history Mother Patient denies significant medical history Social History marital status: household members: spouse Smoking Status: Former smoker alcohol intake: former Smoking Status: Former smoker alcohol intake frequency: holidays/special occasions only Exam Initial Vital Signs Initial Vital Signs: Vital Signs Pulse Rate 89 08/28/24 11:53 Respiratory Rate 16 08/28/24 11:53 Blood Pressure 98/55 L 08/28/24 11:53 Pulse Oximetry 99 08/28/24 11:53 Oxygen Delivery Method Room Air 08/28/24 11:53 General: Chronically ill-appearing, fatigued, thin but not to the point of cachexia HEENT: Dry mucous membranes, normal sclera with reactive pupils, Respiratory: Lungs with minor scattered wheeze, no rhonchi, symmetrical air movement Cardiac: Regular rate and rhythm no murmurs no bruits Abdomen: Soft, mid abdominal tenderness to palpation without rebound or guarding Skin: Quite thin, pale, significant sun damage damage Neurologic: Globally weak Grossly neurologically intact with no obvious asymmetries or abnormalities Extremities: No trauma, no lower extremity edema Psych: Cooperative, appropriate insight and affect Course Orders Ordered: ED Orders 08/29/24 14:23 EKG-12 Lead Stat Discontinued Medications Al Hydrox/Mg Hydrox/Simethicone (Mag Hydrox/Alum/Simeth 30 Ml Udc) 30 ml PO NOW ONE Stop: 08/28/24 22:38 Last Admin: 08/28/24 22:51 Dose: 30 ml Documented By: FABIAN Azithromycin (Azithromycin 250 Mg Tablet) 500 mg PO DAILY [facility] Last Admin: 08/29/24 08:27 Dose: 500 mg Documented By: MAKI Prednisone (Prednisone 5 Mg Tablet) 5 mg PO DAILY [facility] Last Admin: 08/29/24 08:28 Dose: 5 mg Documented By: MAKI Tacrolimus (Tacrolimus 0.5 Mg Capsule) 1 mg PO BID [facility] Last Admin: 08/29/24 08:28 Dose: 1 mg Documented By: MAKI Tamsulosin HCl (Tamsulosin 0.4 Mg Capsule) 0.4 mg PO DAILY [facility] Last Admin: 08/29/24 08:28 Dose: 0.4 mg Documented By: MAKI Trimethoprim/Sulfamethoxazole (Trimeth/Sulfa 160/800 (Ds) Tablet) 1 tab PO NOW ONE Stop: 08/29/24 07:19 Last Admin: 08/29/24 08:26 Dose: 1 tab Documented By: MAKI Vital Signs Vital signs: Vital Signs - 8 hr 08/29/24 10:26 08/29/24 10:26 08/29/24 13:05 Pulse Rate 89 97 H Respiratory Rate 18 14 Blood Pressure 89/54 L 125/70 Pulse Oximetry 99 98 Oxygen Delivery Method Room Air Medical Decision Making Lab Data 08/28/24 14:00 08/28/24 14:00 Labs: Lab Results 08/28/24 08/28/24 Range/Units 14:00 14:05 WBC 7.8 (4.5-11.0) X10^3/uL RBC 3.66 L (4.5-5.9) X10^6/uL Hgb 11.7 L (13.5-17.5) g/dL Hct 35.7 L (41-53) % MCV 97.5 (80-100) fL MCH 32.0 (26-34) PG MCHC 32.8 (30-36) % RDW 16.8 H (11.6-14.8) % Plt Count 208 (150-400) X10^3/uL Neut % (Auto) 55.4 (50-75) % Lymph % (Auto) 33.2 (25-40) % [place] % (Auto) 8.5 (3-14) % Eos % (Auto) 2.2 (2-4) % Baso % (Auto) 0.7 (0-2) % Neut # (Auto) 4300 (6601-4465) /uL Lymph # (Auto) 2600 (2457-0075) /uL [place] # (Auto) 700 (0-900) /uL Eos # (Auto) 200 (0-450) /uL Baso # (Auto) 100 (0-100) /uL PT 11.3 (9.4-12.5) SECONDS INR 1.0 (0.9-1.3) APTT 35 (25.1-36.5) SECONDS Sodium 134 L (137-145) mmol/L Potassium 4.1 (3.4-5.1) mmol/L Chloride 106 (98-107) mmol/L Carbon Dioxide 20 L (22-32) mmol/L BUN 43 H (9-20) mg/dL Creatinine 2.21 H (0.66-1.25) mg/dL Estimated GFR 28 L (>60) mL/min BUN/Creatinine Ratio 19.5 (6-22) Glucose 116 H (80-110) mg/dL Calcium 10.7 H (8.4-10.2) mg/dL Magnesium 1.7 (1.6-2.3) mg/dL Total Bilirubin 0.7 (0.2-1.3) mg/dL AST 34 (17-59) IU/L ALT 19 (<50) IU/L Alkaline Phosphatase 81 (38-126) U/L Total Creatine Kinase 96 (55-170) U/L Troponin I 0.032 (0.01-0.034) ng/mL NT-Pro-B Natriuret Pep 1690 H (<450) pg/mL Total Protein 6.3 (6.3-8.2) g/dL Albumin 3.5 (3.5-5.0) g/dL Globulin 2.8 (1.7-4.1) g/dL Albumin/Globulin Ratio 1.3 (1.0-2.8) Lipase 58 (23-300) U/L Point of Care Testing Glucose POC 109 Point of care testing: Point of Care Testing Glucose POC 109 MDM Narrative Medical decision making narrative: CC: Progressive weakness Complicating co-morbidities: Bilateral lung transplant, still on tacrolimus, prednisone, prophylactic antibiotics Data collected from: patient, son Social determinants of health that may influence the patients condition: Patient's is very clear that she does not want him to at home which he understands Medical records reviewed: ER visit for similar complaints on the , primary care notes reviewed Differential considered: Pneumonia, rejection, end of life Exam documented above, pertinent findings include: Patient is frail, weak, no acute findings are appreciated Lab Test results independently reviewed as above. Pertinent findings: CBC does not show acute abnormalities or new findings Chemistries show his chronic renal disease essentially unchanged, no significant dramatic electrolyte abnormalities, calcium slightly elevated at 10.6. ProBNP slightly elevated at 1 690 which appears to be close to his baseline Troponin is not elevated Independently reviewed EKG: Sinus rhythm with first-degree block, right bundle branch block no acute ischemic changes Imaging studies independently reviewed: Chest x-ray does not show significant new findings Consultations: GARNETT FEEDER. In discussion with social work, the patient and his son they would like to consider private pay admission to [facility] for intermediate care. We did discuss goals of care today which include making sure that he is comfortable. Comfort as defined by the patient today is being wrapped up in a heating blanket and not being forced to eat. Patient is DNR . He has not comfort care. May benefit from palliative care or hospice consult. He recognizes that his does not want him to diet home and he has enjoyed previous stays at [facility] Treatments: Warm blankets, dinner Son will bring in all of his medications and we will do appropriate med rec Re-evaluations: Discussion: 83-year-old gentleman with progressive chronic diseases likely getting closer to end of life. Sleeping up to 20 hours a day with significant increased fatigue but no pain overall. Would like admission to [facility]. This likely can be arranged for tomorrow. We will plan on caring for an in the ER until [facility] bed is available Med reconciliation: Patient brings in home meds to clarify what he is actually taking and doses Azithromycin 500 mg daily Prednisone 5 mg daily tacrolimus 1 mg q.12 hours Itraconazole 100 mg p.o. b.i.d. -we do not have this on formulary we will use his home medication Valganciclovir 400 mg 3 times a week, Sunday -we do not have this on formulary will use his home medication Bactrim DS, half tab Sunday Metoprolol 12.5 mg daily. Patient continues to be somewhat hypotensive we will hold this for the time being Januvia 50 mg daily, with minimal p.o. intake will follow up blood sugars and decide if this should be continued Patient will go to [facility] care facility at 3:00 p.m. this afternoon. [facility] orders are filled out, pulsed form is filled out. Med list is updated for discharge. Discharge Plan Departure Patient Disposition: SNF Clinical Impression: Lung transplant recipient, Weakness, DNR (do not resuscitate), Anemia Prescriptions: No Action valganciclovir 450 mg tablet 450 mg PO 3XW Rx Instructions: Patient reports he takes this med 3 X weekly on , Sun, and . azithromycin 250 mg tablet 500 mg PO DAILY Rx Instructions: Pts instructions say to take 1 tablet by mouth Sunday,,Sunday prednisone 5 mg tablet 5 mg PO DAILY sulfamethoxazole-trimethoprim 800-160 mg tablet 0.5 tab PO 3XW tamsulosin 0.4 mg capsule 0.4 mg PO QPM itraconazole 100 mg capsule 100 mg PO BID tacrolimus 1 mg capsule 1 mg PO Q12H Januvia 50 mg tablet 50 mg PO DAILY SNF Discharge Plan Transfer to: [facility] Transportation: Wheelchair I certify the postop hospital intermediate care is medically necessary on a continuing basis for any conditions for which he/ she received care during this hospitalization.: Yes The receiving facility has agreed to accept transfer and provide medical treatment.: Yes Discharge Health Status Care Plan Goals: Comfort Diet/Activity/Treatments Diet: Diet as Tolerated Food texture: Regular Activity: As tolerated
--- NOTE | 2024-08-28 17:53 | CM.SWNOTE ---
ED [employer]IDENT [employer] Note Patient is 83 y/o male who presents to ED with son due to concern for recent GLF, increase confusion and weakness. It is reported that patient has been sleeping most days and having difficulty managing ADLs. Patient's PCP is Dr. Angel, Patient has [facility] and [facility] insurance. Patient's DPOA is Jose Alfredo who resides in [place], [place] VICE PRESIDENT CONSULTING SERVICES receives consult to discuss terminal block assembler care LISA/SNFs with patient and son for comfort care. VICE PRESIDENT CONSULTING SERVICES enters room to meet with patient and son. Patient presents as A/Ox4. It is reported that patient resides with spouse in [place] and patient has been struggling with ADLs and sleeping most of the day. VICE PRESIDENT CONSULTING [employer] provides son with lists of LTC facilities and senior resource guide and discusses options, encourages them to tour facilities and call facilities. Patient had recent private pay stay at [facility] in December 2023 for a month. Patient and son endorse preference for patient to return to [facility]. ED provider is recommending comfort care for patient at this time. Patient's son Jose Alfredo states he called [facility] earlier and it is reported that they have a bed for tomorrow. Son states that he is returning home to [facility] and will return to the ED tomorrow. VICE PRESIDENT CONSULTING [employer] calls Alesha at [facility] as soon as this plan is determined after business hours and leaves and sends email regarding this referral. VICE PRESIDENT CONSULTING SERVICES encourages son to call Alesha tomorrow to discuss the process and payment. Plan: patient to board in ED this evening, awaiting acceptance at [facility] for private pay comfort care SNF bed tomorrow. Suma Ramsay, CARD FILER
[2024-08-28] MEDS: MAG HYDROX/ALUM/SIMETH 30 ML UDC PO (22:51)
--- NOTE | 2024-08-29 02:10 | PC.NURSE ---
Pt appears to be asleep at this time with eyes closed and slow steady breathing. did not wake up to perform a weakness reasse.ssment
[2024-08-29 04:06] VITALS: BP 101/63; PULSE 89; RESP 16; O2SAT 97
[2024-08-29] MEDS: TRIMETH/SULFA 160/800 (DS) TABLET 1 TAB PO (08:26)
[2024-08-29] MEDS: AZITHROMYCIN 250 MG TABLET 500 MG PO (08:27)
[2024-08-29] MEDS: TACROLIMUS 0.5 MG CAPSULE 1 MG PO (08:28)
[2024-08-29] MEDS: TAMSULOSIN 0.4 MG CAPSULE PO (08:28)
[2024-08-29] MEDS: predniSONE 5 MG TABLET PO (08:28)
[2024-08-29 10:26] VITALS: BP 89/54; PULSE 89; RESP 18; O2SAT 99
[2024-08-29 13:05] VITALS: BP 125/70; PULSE 97; RESP 14; O2SAT 98
--- NOTE | 2024-08-29 13:16 | CM.SWNOTE ---
ED [employer]BITT [employer] Note Alesha at [facility] confirms that patient is accepted for private pay SNF for comfort care. Alesha states that patient can be picked up by transport at 1530. BABBITT SPINNER emails Alesha with signed PASSR, signed med list, POLST, d/c summary and facesheet. ED team calls transport to see if patient can be picked up earlier, and they arrive at an earlier time to transport patient to [facility]. BABBITT SPINNER calls Alesha as soon as BABBITT SPINNER finds out about this and she reports that she was not aware, BABBITT SPINNER meets with Alesha in person to hand deliver transfer packet with original documents and ED summary. Plan: patient transferred to [facility] for SNF private pay Comfort Care. Suma Ramsay, SIGNAL TIMER
--- NOTE | 2024-08-29 14:23 | EKG_ITS ---
[address] [address] Test Date: 2024-08-28 Pat Name: Darryl Jacobs Department: Room: Gender: Male Electric Cell Tender: MARIELLE : 1940 Requested By: Order Number: [id number] Reading MD: Brad Marquez Measurements Intervals [place] Rate: 90 P: 18 NM: 216 QRS: -45 QRSD: 156 T: 5 QT: 406 QTc: 496 Interpretive Statements Sinus rhythm with 1st degree AV block Right bundle branch block Left anterior fascicular block Bifascicular block Minimal voltage criteria for LVH, may be normal variant ( R in aVL ) Septal infarct , age undetermined Electronically Signed On 09-04-2024 9:02:30 PST by Brad Marquez
== END 2024-08-29 13:07 ==
PROVIDERS: Emergency Provider Emergency Medicine; Family Provider Family Medicine; PCP Family Medicine
DX: D64.9 Anemia, unspecified (principal); Z94.2 Lung transplant status; Z79.52 Long term (current) use of systemic steroids
CPT/HCPCS: 36415; 71045; 80053; 82550; 82962; 83690; 83735; 83880; 84484; 85025; 85610; 85730; 93005; 99283; 99284; J7507

== ENCOUNTER → 2024-09-02 08:31 | Outpatient (ROUT) | payer MEDICARE, SELFPAY ==
[2024-09-11 04:32] VITALS: BMI 25.4
== END ==
PROVIDERS: Family Provider Family Medicine; PCP Family Medicine; Visit Provider Family Medicine
DX: N18.30 Chronic kidney disease, stage 3 unspecified (principal); J84.112 Idiopathic pulmonary fibrosis; E11.9 Type 2 diabetes mellitus without complications; E03.9 Hypothyroidism, unspecified; R53.1 Weakness; Z94.2 Lung transplant status
CPT/HCPCS: 80048; 82728; 83540; 83550; 85014; 85018

== ENCOUNTER → 2024-09-08 09:24 | Outpatient (CLI) | payer MEDICARE, SELFPAY ==
[2023-12-10 16:27] VITALS: BMI 27.9
--- NOTE | 2024-09-04 12:02 | ONC.SCHED ---
Spoke with patient today as he missed his appointment. He is currently a patient at [facility] in [place]. Arranged with SHAUNNA Ortega to have Mr Jacobs transported to [place] to continue his injections. Faxed a copy of the order to Shannon at [phone] for doctor's review.
[2024-09-08 10:08] LABS: Hematocrit 36.1 % (41-53); Hemoglobin 11.7 g/dL (13.5-17.5)
[2024-09-08 10:10] VITALS: BP 86/51; PULSE 80; RESP 16; TEMP 36.6; O2SAT 99
[2024-09-08 10:19] LABS: BUN Creatinine Ratio 24.1 (6-22); Blood Urea Nitrogen 52 mg/dL (9-20); Calcium 9.3 mg/dL (8.4-10.2); Carbon Dioxide 22 mmol/L (22-32); Chloride 107 mmol/L (98-107); Estimated Glomerular Filt Rate 29 mL/min (>60); Glucose 125 mg/dL (80-110); HEMOLYSIS < 15 (0-50); Sodium 137 mmol/L (137-145)
--- NOTE | 2024-09-08 10:19 | PC.NURSE ---
PH# [phone] [facility] ([facility]) Patient has next appt for infusion 09/17/23, before this appt he needs to hold his Tacrolimus/Prograf medication AM dose for level to be checked at this appt. We have printed out the schedule for his next few infusion appointments and faxed it. We will send a physical copy as well. I have printed his most recent labs and vitals for today visit. His HGB=11.[address] orders [address] Gonzalez patient did not recieve his EPO/Retacrit SQ injection. We will be drawing the following labs on 07/18/24: Magnesium, Phosphorus, CMP, CBC w/Diff, Prograf/FK50b(Tacrolimus), CMV(cytomegalovirus) for Dr Ana Maria Mullins (lung transplant MD) @ [facility] PH# [phone]
== END ==
PROVIDERS: Family Provider Family Medicine; PCP Family Medicine; Referring Provider Internal Medicine Nephrology; Visit Provider Internal Medicine Nephrology
DX: N18.32 Chronic kidney disease, stage 3b (principal); D63.1 Anemia in chronic kidney disease
CPT/HCPCS: 80048; 85014; 85018

== ENCOUNTER 2024-09-09 20:05 | Emergency (ER) | payer MEDICARE, SELFPAY ==
[2023-12-10 16:27] VITALS: BMI 27.9
[2024-09-09] VITALS (9 sets, daily range): BP systolic 122–157; BP diastolic 61–76; PULSE 80–93; RESP 14–25; TEMP 36.9; O2SAT 9–100; BMI 25.4
--- NOTE | 2024-09-09 | DI.CT.S_ITS ---
PROCEDURE: CT CHEST WO CON INDICATIONS: left rib pain TECHNIQUE: Noncontrast 5 mm thick sections acquired from the pulmonary apices to the posterior costophrenic angles. 1 mm lung window, 5 mm thick coronal and sagittal and 7 mm axial MIP reformats were then acquired. For radiation dose reduction, the following was used: automated exposure control, adjustment of mA and/or kV according to patient size. COMPARISON: [facility], CT, CT CHEST WO CON, 09/18/2020, 15:18. FINDINGS: Image quality: Diagnostic. Lower Neck: No enlarged lymph nodes. Thyroid: No thyroid nodules which require sonographic follow up, per consensus guidelines. Axillae: No enlarged lymph nodes. Chest Wall: Unremarkable. Bones: Postsurgical changes are noted in mid to lower sternum.. No aggressive appearing bony lesions. No displaced rib fractures are seen. Lungs and Pleura: No pneumothorax or pleural effusions. Scattered atelectasis and scarring in periphery of bilateral lung archibald are seen. No consolidation or suspicious nodules. Heart: Heart size is enlarged. No pericardial effusion. Thoracic Vessels: The aorta and pulmonary arteries demonstrate normal size. 3 vessel coronary artery atherosclerotic calcifications are noted. Mediastinum and [place]: No enlarged lymph nodes. Calcified mediastinal lymph nodes are again seen unchanged from prior study. Esophagus: No wall thickening. Small hiatal hernia. Upper Abdomen: Visualized upper abdomen solid organs and bowel loops appear normal. IMPRESSION: 1. No displaced rib fractures. No aggressive appearing bony lesions. 2. Scattered scarring/atelectasis in bilateral lung archibald. No focal infiltrate, pleural effusion or pneumothorax. 3. Severe atherosclerotic calcifications in coronary arteries. No mediastinal or hilar lymphadenopathy. Small hiatal hernia. Dictated by: Rolando Oconnor M.D. on 09/09/2024 at 21:15 Approved by: Rolando Oconnor M.D. on 09/09/2024 at 21:19
--- NOTE | 2024-09-09 20:09 | ED.FALL ---
HPI - Fall General Chief Complaint: Fall Stated Complaint: GLF Time Seen by Provider: 09/09/24 20:06 Mode of arrival: EMS History of Present Illness HPI Narrative: 83yoM presents by EMS from his [facility] for eval after GLF. Patient states he was walking to the restroom when he tripped and fell, landing on his left-hand side. He did hit his head. Denies use of blood thinners, denies loss of consciousness. Complaining skin tears to his left arm and left-sided chest wall pain Related Data Home Medications Medication Instructions Recorded Confirmed azithromycin 250 mg tablet 500 mg PO DAILY 08/28/24 08/28/24 itraconazole 100 mg capsule 100 mg PO BID 08/28/24 08/28/24 prednisone 5 mg tablet 5 mg PO DAILY 08/28/24 08/28/24 sitagliptin phosphate 50 mg tablet 50 mg PO DAILY 08/28/24 08/28/24 (Januvia) sulfamethoxazole 800 0.5 tab PO 3XW 08/28/24 08/28/24 mg-trimethoprim 160 mg tablet tacrolimus 1 mg capsule, 1 mg PO Q12H 08/28/24 08/28/24 immediate-release tamsulosin 0.4 mg capsule 0.4 mg PO QPM 08/28/24 08/28/24 valganciclovir 450 mg tablet 450 mg PO 3XW 08/28/24 08/29/24 Previous Rx's Medication Instructions Recorded levothyroxine 150 mcg tablet 150 mcg PO DAILY #90 tabs 09/04/24 Allergies Allergy/AdvReac Type Severity Reaction Status Date / Time No Known Drug Allergies Allergy Verified 09/09/24 20:06 Patient History Medical History Partial obstruction of small intestine COVID-19 Aortic stenosis Encounter for subsequent annual wellness visit (AWV) in Medicare patient Macrocytosis CKD (chronic kidney disease) stage 3, GFR 30-59 ml/min Chronic low back pain Hearing impaired IPF (idiopathic pulmonary fibrosis) Hypothyroid Diabetes Hyperlipidemia Hypertension Coronary artery disease Anemia Tubular adenoma of colon Surgical History Status post lung transplantation Hx of cholecystectomy Hx of bilateral cataract extraction H/O lung transplant (2009) Family History Father Patient denies significant medical history Mother Patient denies significant medical history Social History marital status: household members: spouse Smoking Status: Former smoker alcohol intake: former Smoking Status: Former smoker alcohol intake frequency: holidays/special occasions only Exam Initial Vital Signs Initial Vital Signs: Vital Signs Temperature 98.4 F 09/09/24 20:00 Pulse Rate 92 H 09/09/24 20:00 Respiratory Rate 14 09/09/24 20:00 Blood Pressure 128/76 09/09/24 20:00 Pulse Oximetry 9 L 09/09/24 20:00 Oxygen Delivery Method Room Air 09/09/24 20:00 Const: Awake, alert, no acute distress, nontoxic appearing Cardiac: regular rate, regular rhythm Chest: generalized tenderness to palpation along L chest wall, no crepitus, no deformity RESP: unlabored, clear bilaterally, no wheezing GI: Soft, nontender, nondistended MSK: no deformity, full range of motion, pulses equal Skin: Warm, Dry, scattered skin tears along L elbow, forearm, no discrete lacerations Neuro: AO x3, CN II-XII grossly intact, moves all extremities Course Orders Ordered: Discontinued Medications Morphine Sulfate (Morphine 4 Mg/Ml Inj) 4 mg IV NOW ONE Stop: 09/09/24 21:07 Last Admin: 09/09/24 21:16 Dose: 4 mg Documented By: MAKI Vital Signs Vital signs: Vital Signs - 8 hr 09/09/24 20:00 09/09/24 20:09 09/09/24 20:10 Temperature 98.4 F Pulse Rate 92 H 93 H Respiratory Rate 14 Blood Pressure 128/76 135/70 Pulse Oximetry 9 L 95 Oxygen Delivery Method Room Air 09/09/24 20:10 09/09/24 21:17 09/09/24 21:17 Temperature Pulse Rate 93 H 86 Respiratory Rate 25 H Blood Pressure 146/76 H Pulse Oximetry 98 100 Oxygen Delivery Method 09/09/24 21:30 09/09/24 21:30 09/09/24 22:00 Temperature Pulse Rate 80 Respiratory Rate 14 Blood Pressure 124/63 136/68 Pulse Oximetry 92 Oxygen Delivery Method 09/09/24 22:00 Temperature Pulse Rate 85 Respiratory Rate 15 Blood Pressure Pulse Oximetry 99 Oxygen Delivery Method MDM - Fall Differential Diagnosis Differential diagnosis: Likely compression fracture, concussion with loss of consciousness and concussion without loss of consciousness Imaging Data CT scan - chest: Radiologist's Impression: PROCEDURE: CT CHEST WO CON INDICATIONS: left rib pain TECHNIQUE: Noncontrast 5 mm thick sections acquired from the pulmonary apices to the posterior costophrenic angles. 1 mm lung window, 5 mm thick coronal and sagittal and 7 mm axial MIP reformats were then acquired. For radiation dose reduction, the following was used: automated exposure control, adjustment of mA and/or kV according to patient size. COMPARISON: [facility], CT, CT CHEST WO CON, 09/18/2020, 15:18. FINDINGS: Image quality: Diagnostic. Lower Neck: No enlarged lymph nodes. Thyroid: No thyroid nodules which require sonographic follow up, per consensus guidelines. Axillae: No enlarged lymph nodes. Chest Wall: Unremarkable. Bones: Postsurgical changes are noted in mid to lower sternum.. No aggressive appearing bony lesions. No displaced rib fractures are seen. Lungs and Pleura: No pneumothorax or pleural effusions. Scattered atelectasis and scarring in periphery of bilateral lung archibald are seen. No consolidation or suspicious nodules. Heart: Heart size is enlarged. No pericardial effusion. Thoracic Vessels: The aorta and pulmonary arteries demonstrate normal size. 3 vessel coronary artery atherosclerotic calcifications are noted. Mediastinum and Rivka: No enlarged lymph nodes. Calcified mediastinal lymph nodes are again seen unchanged from prior study. Esophagus: No wall thickening. Small hiatal hernia. Upper Abdomen: Visualized upper abdomen solid organs and bowel loops appear normal. IMPRESSION: 1. No displaced rib fractures. No aggressive appearing bony lesions. 2. Scattered scarring/atelectasis in bilateral lung archibald. No focal infiltrate, pleural effusion or pneumothorax. 3. Severe atherosclerotic calcifications in coronary arteries. No mediastinal or hilar lymphadenopathy. Small hiatal hernia. Dictated by: Rolando Oconnor M.D. on 09/09/2024 at 21:15 Approved by: Rolando Oconnor M.D. on 09/09/2024 at 21:19 CT - cervical spine: Radiologist's Impression: PROCEDURE: CT CERVICAL SPINE WO CON INDICATIONS: GLF, HEAD INJ TECHNIQUE: Noncontrast 3 mm thick sections acquired from the skull base to the T4 level. Sagittal and coronal reformats were then constructed. For radiation dose reduction, the following was used: automated exposure control, adjustment of mA and/or kV according to patient size. COMPARISON: None. FINDINGS: Image quality: Excellent. Bones: No fractures or dislocations. 2-3 mm anterolisthesis of C3 on C4 and C4 on C5 is seen. Loss of disc height, degenerative endplate changes and dorsal disc osteophyte complex formation throughout cervical spine causing [id number] central canal stenosis and bilateral neural foraminal narrowing more notably at C4-5 and C5-6 levels. Visualized superior ribs are intact. Soft tissues: Prevertebral soft tissues are normal in thickness. No paravertebral hematomas. No apical pneumothoraces. IMPRESSION: 1. No displaced fracture or traumatic subluxation. 2. Degenerative disc disease throughout cervical spine as above. Dictated by: Rolando Oconnor M.D. on 09/09/2024 at 20:55 Approved by: Rolando Oconnor M.D. on 09/09/2024 at 20:56 CT scan - head: Radiologist's Impression: PROCEDURE: CT HEAD/BRAIN WO CON INDICATIONS: GLF, L FOREHEAD INJ TECHNIQUE: Noncontrast 4.5 mm thick angled axial sections acquired from the foramen magnum to the vertex, with coronal and sagittal reformats. For radiation dose reduction, the following was used: automated exposure control, adjustment of mA and/or kV according to patient size. COMPARISON: [facility], CT, CT HEAD/BRAIN WO CON, 08/13/2024, 0:12. FINDINGS: Image quality: Diagnostic. CSF spaces: Basal cisterns are patent. No extra-axial fluid collections. The ventricles are symmetric in size and shape. Brain: No intracranial bleeds or masses. There is cerebral volume loss for age, with resultant ventricular and sulcal prominence. There are periventricular and deep white matter chronic small vessel ischemic changes. There is intracranial internal carotid artery atherosclerosis. Skull and face: Calvarium and visualized facial bones appear intact, without suspicious lesions. Sinuses: Mucosal thickening in bilateral ethmoid sinuses are again seen. IMPRESSION: No acute intracranial pathology. No significant changes from previous study. Dictated by: Rolando Oconnor M.D. on 09/09/2024 at 20:56 Approved by: Rolando Oconnor M.D. on 09/09/2024 at 20:57 Extremity x-ray #1: Radiologist's Impression: PROCEDURE: XR HIP W PEL IF DONE LT 2V INDICATIONS: GLF, L HIP PAIN TECHNIQUE: AP pelvis with lateral view(s) of the left hip(s). COMPARISON: [facility], CR, XR HIP W PEL IF DONE LT 2V, 04/30/2023, 14:15. FINDINGS: Bones: No fractures or dislocations. [id number] bilateral hip joint osteoarthritic changes are seen not significantly changed from prior study. No evidence of avascular necrosis of femoral head. Pelvic ring appears intact. No suspicious bony lesions. Soft tissues: The visualized bowel gas pattern is normal. No suspicious soft tissue calcifications. IMPRESSION: No acute left hip fracture or dislocation. No evidence of avascular necrosis. Bilateral hip joint osteoarthritis. Dictated by: Rolando Oconnor M.D. on 09/09/2024 at 21:14 Approved by: Rolando Oconnor M.D. on 09/09/2024 at 21:15 MDM Narrative Medical decision making narrative: GLF with left sided pain. Small frontal contusion to L forehead. No obvious deformities. Able to stand and pivot with EMS on scene per their report. CT imaging negative for acute findings or fractures. Skin tears cleaned and dressed by nursing staff. Patient transferred via BLS service to his facility in stable condition. Discharge Plan Departure Patient Disposition: Home Clinical Impression: Pain in rib, Closed head injury, Multiple skin tears Instructions: How to Prevent Falls Activity Restrictions/Additional Instructions: Your imaging today did not show any fractures in your head, neck, chest, or pelvis. Your ribs may be bruised. Take Tylenol at home for pain or discomfort. Apply lidocaine patches to your chest daily for comfort. Please follow up with your primary care doctor. Prescriptions: No Action levothyroxine 150 mcg tablet 150 mcg PO DAILY Qty: 90 3RF valganciclovir 450 mg tablet 450 mg PO 3XW Rx Instructions: Patient reports he takes this med 3 X weekly on , Sun, and . azithromycin 250 mg tablet 500 mg PO DAILY Rx Instructions: Pts instructions say to take 1 tablet by mouth Sunday,,Sunday prednisone 5 mg tablet 5 mg PO DAILY sulfamethoxazole-trimethoprim 800-160 mg tablet 0.5 tab PO 3XW tamsulosin 0.4 mg capsule 0.4 mg PO QPM itraconazole 100 mg capsule 100 mg PO BID tacrolimus 1 mg capsule 1 mg PO Q12H Januvia 50 mg tablet 50 mg PO DAILY Referrals: Shy Angel DO [Primary Care Provider] - Stand Alone Forms: Patient Portal/API/Survey
[2024-09-09] MEDS: MORPHINE 4 MG/ML INJ IV (21:16)
== END 2024-09-09 23:51 | disposition home or self-care (01) ==
PROVIDERS: Emergency Provider Emergency Medicine; Family Provider Family Medicine; PCP Family Medicine
DX: S09.8XXA Other specified injuries of head, initial encounter (principal); R07.89 Other chest pain; S51.812A Laceration without foreign body of left forearm, initial encounter; W01.0XXA Fall on same level from slipping, tripping and stumbling without subsequent striking against object, initial encounter
CPT/HCPCS: 70450; 71250; 72125; 73502; 96374; 99283; 99284; J2270

== ENCOUNTER 2024-09-11 02:30 | Inpatient (IN) | payer MEDICARE, SELFPAY ==
[2023-12-10 16:27] VITALS: BMI 27.9
[2024-09-11] VITALS (35 sets, daily range): BP systolic 81–152; BP diastolic 56–81; PULSE 74–99; RESP 12–23; TEMP 36.6–36.9; O2SAT 95–99; BMI 25.4
--- NOTE | 2024-09-11 02:37 | ED_ITS ---
HPI - GI Bleed General Chief complaint: GI Bleed Stated complaint: black stools Time Seen by Provider: 09/11/24 02:37 History of Present Illness HPI Narrative: 83-year-old male with history of idiopathic pulmonary fibrosis status post pulmonary transplant on tacrolimus and prednisone, CKD, anemia of chronic disease (baseline hgb 10-11) presents by EMS from [facility] for dark stools. Patient was seen in the emergency department yesterday after a ground level trip and fall. He was discharged back to [facility] after negative CT imaging. At that time preemptive labs were ordered in case patient had rib fractures that would require admission, however after negative imaging the labs were canceled and never obtained. Per EMS the staff at [facility] noticed 2 episodes of dark tarry stools this evening. Patient was not on blood thinners. Patient states that he has had generalized midepigastric abdominal discomfort for the last several days, but he had not mentioned it to anyone. This evening he finally was able to have a bowel movement, and it was noted to be dark. He states that when he was 17 years old he was diagnosed with ulcers, but has not had any issues with his stomach or intestines since that time. Related Data Home Medications Medication Instructions Recorded Confirmed azithromycin 250 mg tablet 500 mg PO DAILY 08/28/24 08/28/24 itraconazole 100 mg capsule 100 mg PO BID 08/28/24 08/28/24 prednisone 5 mg tablet 5 mg PO DAILY 08/28/24 08/28/24 sitagliptin phosphate 50 mg tablet 50 mg PO DAILY 08/28/24 08/28/24 (Januvia) sulfamethoxazole 800 0.5 tab PO 3XW 08/28/24 08/28/24 mg-trimethoprim 160 mg tablet tacrolimus 1 mg capsule, 1 mg PO Q12H 08/28/24 08/28/24 immediate-release tamsulosin 0.4 mg capsule 0.4 mg PO QPM 08/28/24 08/28/24 valganciclovir 450 mg tablet 450 mg PO 3XW 08/28/24 08/29/24 Previous Rx's Medication Instructions Recorded levothyroxine 150 mcg tablet 150 mcg PO DAILY #90 tabs 09/04/24 Allergies Allergy/AdvReac Type Severity Reaction Status Date / Time No Known Drug Allergies Allergy Verified 09/09/24 20:06 Patient History Medical History Partial obstruction of small intestine COVID-19 Aortic stenosis Encounter for subsequent annual wellness visit (AWV) in [employer] patient Macrocytosis CKD (chronic kidney disease) stage 3, GFR 30-59 ml/min Chronic low back pain Hearing impaired IPF (idiopathic pulmonary fibrosis) Hypothyroid Diabetes Hyperlipidemia Hypertension Coronary artery disease Anemia Tubular adenoma of colon Surgical History Status post lung transplantation Hx of cholecystectomy Hx of bilateral cataract extraction H/O lung transplant (2009) Family History Father Patient denies significant medical history Mother Patient denies significant medical history Social History marital status: household members: spouse Smoking Status: Former smoker alcohol intake: former Smoking Status: Former smoker alcohol intake frequency: holidays/special occasions only Exam Initial Vital Signs Initial Vital Signs: Vital Signs Pulse Rate 88 09/11/24 02:41 Pulse Oximetry 97 09/11/24 02:41 Const: Awake, alert, debilitated, frail Cardiac: regular rate, regular rhythm RESP: unlabored, clear bilaterally, no wheezing GI: Soft, upper abdominal tenderness to deep palpation without rebound or guarding Rectal: Whittling Room Operator present, rectal tone intact, maroon-colored stool around rectum and in brief Skin: Warm, Dry, pale, skin tear dressings from yesterday in place Neuro: AO x3, CN II-XII grossly intact, moves all extremities Course Orders Ordered: ED Orders 09/11/24 02:30 CBC Auto Diff [Complete Blood Count AUTO DIFF] Stat CMP [Comprehensive Metabolic Panel] Stat Lipase Stat PT [Prothrombin Time INR] Stat 09/11/24 02:37 CT angio abdomen pelvis Stat 09/11/24 02:50 Type and Screen Stat Discontinued Medications Hydromorphone HCl (Hydromorphone 0.5 Mg Inj) 0.5 mg IV NOW ONE Stop: 09/11/24 04:02 Last Admin: 09/11/24 04:08 Dose: 0.5 mg Documented By: HNG Sodium Chloride (Normal Saline 0.9%) 1,000 mls @ 1,000 mls/hr IV BOLUS ONE Stop: 09/11/24 03:39 Last Infusion: 09/11/24 04:01 Dose: Infused Documented By: Admin: 09/11/24 03:01 Dose: 1,000 mls/hr Documented By: TONYA Piperacillin Sod/Tazobactam (Sod 4.5 gm/ Sodium Chloride) 100 mls @ 200 mls/hr IV NOW ONE Stop: 09/11/24 04:09 Last Admin: 09/11/24 04:12 Dose: 200 mls/hr Documented By: TONYA Morphine Sulfate (Morphine 4 Mg/Ml Inj) 4 mg IV NOW ONE Stop: 09/11/24 02:38 Last Admin: 09/11/24 03:00 Dose: 4 mg Documented By: TONYA Pantoprazole Sodium (Pantoprazole 40 Mg Vial) 80 mg IV NOW ONE Stop: 09/11/24 02:41 Last Admin: 09/11/24 03:00 Dose: 80 mg Documented By: TONYA Vital Signs Vital signs: Vital Signs - 8 hr 09/11/24 02:41 09/11/24 02:44 09/11/24 03:19 Temperature 97.8 F Pulse Rate 88 83 91 H Respiratory Rate 20 Blood Pressure 105/61 Pulse Oximetry 97 96 95 Oxygen Delivery Method Room Air 09/11/24 03:21 09/11/24 03:21 09/11/24 03:30 Temperature Pulse Rate 90 83 Respiratory Rate 17 12 Blood Pressure 143/74 H Pulse Oximetry 98 95 Oxygen Delivery Method 09/11/24 03:30 Temperature Pulse Rate Respiratory Rate Blood Pressure 152/76 H Pulse Oximetry Oxygen Delivery Method MDM - GI Bleed Lab Data 09/11/24 02:30 09/11/24 02:30 Labs: Lab Results 09/11/24 09/11/24 Range/Units 02:30 02:50 WBC 8.4 (4.5-11.0) X10^3/uL RBC 3.42 L (4.5-5.9) X10^6/uL Hgb 10.9 L (13.5-17.5) g/dL Hct 33.0 L (41-53) % MCV 96.5 (80-100) fL MCH 31.7 (26-34) PG MCHC 32.9 (30-36) % RDW 16.3 H (11.6-14.8) % Plt Count 175 (150-400) X10^3/uL Neut % (Auto) 55.7 (50-75) % Lymph % (Auto) 30.4 (25-40) % Winkler % (Auto) 12.8 (3-14) % Eos % (Auto) 0.4 L (2-4) % Baso % (Auto) 0.7 (0-2) % Neut # (Auto) 4700 (0889-1032) /uL Lymph # (Auto) 2600 (5985-8485) /uL Winkler # (Auto) 1100 H (0-900) /uL Eos # (Auto) 0 (0-450) /uL Baso # (Auto) 100 (0-100) /uL PT 10.9 (9.4-12.5) SECONDS INR 1.0 (0.9-1.3) Sodium 135 L (137-145) mmol/L Potassium 5.0 (3.4-5.1) mmol/L Chloride 105 (98-107) mmol/L Carbon Dioxide 23 (22-32) mmol/L BUN 72 H (9-20) mg/dL Creatinine 2.15 H (0.66-1.25) mg/dL Estimated GFR 29 L (>60) mL/min BUN/Creatinine Ratio 33.5 H (6-22) Glucose 100 (80-110) mg/dL Calcium 8.9 (8.4-10.2) mg/dL Total Bilirubin 0.3 (0.2-1.3) mg/dL AST 32 (17-59) IU/L ALT 20 (<50) IU/L Alkaline Phosphatase 85 (38-126) U/L Total Protein 5.7 L (6.3-8.2) g/dL Albumin 3.1 L (3.5-5.0) g/dL Globulin 2.6 (1.7-4.1) g/dL Albumin/Globulin Ratio 1.2 (1.0-2.8) Lipase 70 (23-300) U/L Blood Type O Positive Antibody Screen Negative Imaging Data CT scan - abdomen/pelvis: Radiologist's Impression: CTA abd/pel GI bleed protocol -no active blush, findings consistent with generalized colitis. [facility] Narrative Medical decision making narrative: Chronically unwell appearing patient with dark stools at nursing facility. On rectal exam in the emergency department patient has gross blood on exam mixed with melena. He was complaining of upper abdominal pain as well. Reports very remote history of ulcers. No peritoneal signs on exam. Based on presentation and exam laboratory work, CT imaging to be ordered. Patient was technically at creatinine cut off for receiving CT contrast, however I believe that benefits outweigh risks and a GI bleed protocol CT ordered. Laboratory work shows WBC count 8.4, hemoglobin 10.9 (11.7 on 09/08), platelet count 175, sodium 135, potassium 5.0, creatinine 2.15, GFR 29, normal liver enzymes. CT of the abdomen and pelvis shows no active blush of bleeding, however there is diffuse circumferential wall thickening compatible with colitis versus diverticulitis. Based on patient's immunocompromised status as well as drop in hemoglobin compared to just 2 days prior plan to admit patient for further treatment. Zosyn ordered for coverage. Nursing staff states that patient has had several episodes of dark tarry stools mixed with bright blood. He remains hemodynamically stable. Plan to admit patient for further treatment Discharge Plan Departure Patient Disposition: Admitted As Inpatient Clinical Impression: Colitis, Acute GI bleeding, Status post lung transplantation Admit Date/Time: 09/11/24 04:17 Admit Provider: Diego Lan
--- NOTE | 2024-09-11 02:37 | DI.CT.S_ITS ---
PROCEDURE: CT ANGIO ABDOMEN PELVIS INDICATIONS: bright red blood per rectum TECHNIQUE: After the administration of intravenous contrast, 2.5 mm sections acquired from the diaphragm to the iliac crests. 10 mm maximum intensity projection (MIP) coronal and sagittal reformats were then performed. For radiation dose reduction, the following was used: automated exposure control. COMPARISON: [facility], CT, CT ABDOMEN PELVIS WO CON, 05/31/2024, 9:29. FINDINGS: Image quality: Diagnostic. Abdominal aorta: No aortic aneurysm or evidence of acute aortic syndrome. Atherosclerotic vascular calcifications. Mesenteric arteries: Patent without hemodynamically significant stenosis. Atherosclerotic vascular calcifications are present. Renal arteries: Severe stenosis of the origin of the left renal arteries. No significant stenosis of the origin of the right renal artery. Lower chest: Mild dependent atelectasis. Severe coronary artery calcifications. Small hiatal hernia. ABDOMEN: Liver: No solid mass. Gallbladder: No radiopaque gallstones or wall thickening. Biliary ducts: No biliary dilation. Pancreas: No ductal dilation. Spleen: Size is within normal limits. Adrenal Glands: No adrenal nodules. Kidneys and Ureters: No hydronephrosis. No solid mass. No complex renal cystic lesion which requires follow up. Right lower pole renal cyst with thin calcified septum. Stomach and Bowel: Stool ball in the rectum measuring up to 7.7 cm. Diverticulosis. Circumferential wall thickening of the sigmoid colon with surrounding inflammatory changes. No extraluminal gas or organized fluid collections. Peritoneum: No abnormal intraperitoneal fluid. No free air. Ventral Wall: No hernia. Abdominal Nodes: No retroperitoneal or mesenteric adenopathy by size criteria. Vessels: Aorta, as above. Normal IVC. PELVIS: Pelvic Organs: Unremarkable. Bladder: Unremarkable. Pelvic Nodes: No enlarged lymph nodes. Miscellaneous: No inguinal hernias are seen. Bones: No aggressive osseous abnormality. Severe compression deformity of L1 is stable. L2 through L4 posterior spinal fixation. Decreased osseous mineralization. Multilevel degenerative changes of the spine. IMPRESSION: Diverticulosis with circumferential wall thickening of the sigmoid colon and pericolonic inflammatory changes, consistent with colitis versus diverticulitis. No organized fluid collections or extraluminal gas. Stool ball within the rectum measuring up to 7.7 cm, correlate for impaction. Please see above for additional findings. Findings are concordant with preliminary interpretation provided by [facility]. Dictated by: Nolan Valdez M.D. on 09/11/2024 at 9:07 Approved by: Nolan Valdez M.D. on 09/11/2024 at 9:13
[2024-09-11 02:56] LABS: Add Manual Diff / Slide Review NO; Basophils Absolute Auto 100 /uL (0-100); Basophils Percent Auto 0.7 % (0-2); Eosinophils Absolute Auto 0 /uL (0-450); Eosinophils Percent Auto 0.4 % (2-4); Hemoglobin 10.9 g/dL (13.5-17.5); Lymphocytes Absolute Auto 2600 /uL (1100-4500); Lymphocytes Percent Auto 30.4 % (25-40); Mean Corpuscular HGB Conc 32.9 % (30-36); Mean Corpuscular Hemoglobin 31.7 PG (26-34); Mean Corpuscular Volume 96.5 fL (80-100); Monocytes Absolute Auto 1100 /uL (0-900); Monocytes Percent Auto 12.8 % (3-14); Neutrophils Absolute Auto 4700 /uL (1500-7000); Neutrophils Percent Auto 55.7 % (50-75); Platelet Count 175 X10^3/uL (150-400); Red Blood Cell Count 3.42 X10^6/uL (4.5-5.9); Red Cell Distribution Width 16.3 % (11.6-14.8); White Blood Cell Count 8.4 X10^3/uL (4.5-11.0)
[2024-09-11 02:59] LABS: Lipase 70 U/L (23-300)
[2024-09-11 03:00] LABS: Alanine Aminotransferase 20 IU/L (<50); Albumin 3.1 g/dL (3.5-5.0); Albumin Globulin Ratio 1.2 (1.0-2.8); Alkaline Phosphatase 85 U/L (38-126); Aspartate Aminotransferase 32 IU/L (17-59); BUN Creatinine Ratio 33.5 (6-22); Bilirubin Total 0.3 mg/dL (0.2-1.3); Blood Urea Nitrogen 72 mg/dL (9-20); Calcium 8.9 mg/dL (8.4-10.2); Carbon Dioxide 23 mmol/L (22-32); Chloride 105 mmol/L (98-107); Estimated Glomerular Filt Rate 29 mL/min (>60); Globulin 2.6 g/dL (1.7-4.1); Glucose 100 mg/dL (80-110); HEMOLYSIS < 15 (0-50); Sodium 135 mmol/L (137-145); Total Protein 5.7 g/dL (6.3-8.2)
[2024-09-11] MEDS: PANTOPRAZOLE 40 MG VIAL 80 MG IV (03:00)
[2024-09-11] MEDS: MORPHINE 4 MG/ML INJ IV (03:00)
[2024-09-11 03:01] LABS: Prothrombin Time 10.9 SECONDS (9.4-12.5)
[2024-09-11] MEDS: SODIUM CHLORIDE 0.9% 1,000 ML 1000 ML IV (03:01)
[2024-09-11] MEDS: HYDROMORPHONE 0.5 MG INJ IV (04:08)
[2024-09-11] MEDS: PIPERACILLIN/TAZO 4.5 GM in SODIUM CHLORIDE 0.9% 100 ML IV (04:12)
--- NOTE | 2024-09-11 05:40 | ED.GIBLEED ---
HPI - GI Bleed General Chief complaint: GI Bleed Stated complaint: black stools Time Seen by Provider: 09/11/24 02:37 Source: patient and EMS Mode of arrival: EMS History of Present Illness HPI Narrative: 83 y/o with PMH of lung transplant, hypothyroidism and CKD stage 4, sent from facility for GI bleed. Apparently he had bright red blood and melena today on several occasions. He was seen a day before in the ED after he sustained GLF, injuring left arm and head. He had non-revealing CTH, CT cervical spine, CXR and Hip Xray. Today he complained on diffuse, Rt>Lt abdominal tenderness and pain. Workup shows anemia, CKD and sigmoid colitis vs diverticulitis. He was typed and crossed, given abx and admitted for Diverticulitis, GI Bleed and ABLA. Related Data Home Medications Medication Instructions Recorded Confirmed azithromycin 250 mg tablet 500 mg PO DAILY 08/28/24 08/28/24 itraconazole 100 mg capsule 100 mg PO BID 08/28/24 08/28/24 prednisone 5 mg tablet 5 mg PO DAILY 08/28/24 08/28/24 sitagliptin phosphate 50 mg tablet 50 mg PO DAILY 08/28/24 08/28/24 (Januvia) sulfamethoxazole 800 0.5 tab PO 3XW 08/28/24 08/28/24 mg-trimethoprim 160 mg tablet tacrolimus 1 mg capsule, 1 mg PO Q12H 08/28/24 08/28/24 immediate-release tamsulosin 0.4 mg capsule 0.4 mg PO QPM 08/28/24 08/28/24 valganciclovir 450 mg tablet 450 mg PO 3XW 08/28/24 08/29/24 Previous Rx's Medication Instructions Recorded levothyroxine 150 mcg tablet 150 mcg PO DAILY #90 tabs 09/04/24 Allergies Allergy/AdvReac Type Severity Reaction Status Date / Time No Known Drug Allergies Allergy Verified 09/09/24 20:06 Review of Systems Constitutional Comments: feels weak, no fever or chills Cardiovascular Comments: without chest pain Respiratory Comments: without shortness of breath or cough Gastrointestinal Comments: diffuse abdominal tenderness, more in upper quadrants and more on the right Patient History Medical History Partial obstruction of small intestine COVID-19 Aortic stenosis Encounter for subsequent annual wellness visit (AWV) in Medicare patient Macrocytosis CKD (chronic kidney disease) stage 3, GFR 30-59 ml/min Chronic low back pain Hearing impaired IPF (idiopathic pulmonary fibrosis) Hypothyroid Diabetes Hyperlipidemia Hypertension Coronary artery disease Anemia Tubular adenoma of colon Surgical History Status post lung transplantation Hx of cholecystectomy Hx of bilateral cataract extraction H/O lung transplant (2009) Family History Father Patient denies significant medical history Mother Patient denies significant medical history Social History marital status: household members: spouse Smoking Status: Former smoker alcohol intake: former Smoking Status: Former smoker alcohol intake frequency: holidays/special occasions only Exam Initial Vital Signs Initial Vital Signs: Vital Signs Pulse Rate 88 09/11/24 02:41 Pulse Oximetry 97 09/11/24 02:41 Const Other: in no distress, sleepy, just had morphine Neck Other: supple Resp Other: normal respiratory effort Cardio Other: RRR GI Other: diffuse abdominal tenderness, more in upper quadrants and more on the right mild distension w/o peritoneal signs Skin Other: Lt arm brusing, laceration Lt forehead abrasion Extrem Other: w/o swelling Psych Mental Status: mental status grossly normal Course Orders Ordered: ED Orders 09/11/24 02:30 CBC Auto Diff [Complete Blood Count AUTO DIFF] Stat CMP [Comprehensive Metabolic Panel] Stat Lipase Stat PT [Prothrombin Time INR] Stat 09/11/24 02:37 CT angio abdomen pelvis Stat 09/11/24 02:50 Type and Screen Stat Discontinued Medications Hydromorphone HCl (Hydromorphone 0.5 Mg Inj) 0.5 mg IV NOW ONE Stop: 09/11/24 04:02 Last Admin: 09/11/24 04:08 Dose: 0.5 mg Documented By: TONYA Sodium Chloride (Normal Saline 0.9%) 1,000 mls @ 1,000 mls/hr IV BOLUS ONE Stop: 09/11/24 03:39 Last Infusion: 09/11/24 04:01 Dose: Infused Documented By: Admin: 09/11/24 03:01 Dose: 1,000 mls/hr Documented By: TONYA Piperacillin Sod/Tazobactam (Sod 4.5 gm/ Sodium Chloride) 100 mls @ 200 mls/hr IV NOW ONE Stop: 09/11/24 04:09 Last Infusion: 09/11/24 04:42 Dose: Infused Documented By: Admin: 09/11/24 04:12 Dose: 200 mls/hr Documented By: TONYA Morphine Sulfate (Morphine 4 Mg/Ml Inj) 4 mg IV NOW ONE Stop: 09/11/24 02:38 Last Admin: 09/11/24 03:00 Dose: 4 mg Documented By: TONYA Pantoprazole Sodium (Pantoprazole 40 Mg Vial) 80 mg IV NOW ONE Stop: 09/11/24 02:41 Last Admin: 09/11/24 03:00 Dose: 80 mg Documented By: TONYA Vital Signs Vital signs: Vital Signs - 8 hr 09/11/24 02:41 09/11/24 02:44 09/11/24 03:19 Temperature 97.8 F Pulse Rate 88 83 91 H Respiratory Rate 20 Blood Pressure 105/61 Pulse Oximetry 97 96 95 Oxygen Delivery Method Room Air 09/11/24 03:21 09/11/24 03:21 09/11/24 03:30 Temperature Pulse Rate 90 83 Respiratory Rate 17 12 Blood Pressure 143/74 H Pulse Oximetry 98 95 Oxygen Delivery Method 09/11/24 03:30 09/11/24 04:00 09/11/24 04:01 Temperature Pulse Rate 94 H 94 H Respiratory Rate 20 21 Blood Pressure 152/76 H Pulse Oximetry 96 95 Oxygen Delivery Method 09/11/24 04:01 Temperature Pulse Rate Respiratory Rate Blood Pressure 126/60 Pulse Oximetry Oxygen Delivery Method MDM - GI Bleed Lab Data 09/11/24 02:30 09/11/24 02:30 Labs: Lab Results 09/11/24 09/11/24 Range/Units 02:30 02:50 WBC 8.4 (4.5-11.0) X10^3/uL RBC 3.42 L (4.5-5.9) X10^6/uL Hgb 10.9 L (13.5-17.5) g/dL Hct 33.0 L (41-53) % MCV 96.5 (80-100) fL MCH 31.7 (26-34) PG MCHC 32.9 (30-36) % RDW 16.3 H (11.6-14.8) % Plt Count 175 (150-400) X10^3/uL Neut % (Auto) 55.7 (50-75) % Lymph % (Auto) 30.4 (25-40) % [place] % (Auto) 12.8 (3-14) % Eos % (Auto) 0.4 L (2-4) % Baso % (Auto) 0.7 (0-2) % Neut # (Auto) 4700 (7524-3046) /uL Lymph # (Auto) 2600 (4213-2079) /uL [place] # (Auto) 1100 H (0-900) /uL Eos # (Auto) 0 (0-450) /uL Baso # (Auto) 100 (0-100) /uL PT 10.9 (9.4-12.5) SECONDS INR 1.0 (0.9-1.3) Sodium 135 L (137-145) mmol/L Potassium 5.0 (3.4-5.1) mmol/L Chloride 105 (98-107) mmol/L Carbon Dioxide 23 (22-32) mmol/L BUN 72 H (9-20) mg/dL Creatinine 2.15 H (0.66-1.25) mg/dL Estimated GFR 29 L (>60) mL/min BUN/Creatinine Ratio 33.5 H (6-22) Glucose 100 (80-110) mg/dL Calcium 8.9 (8.4-10.2) mg/dL Total Bilirubin 0.3 (0.2-1.3) mg/dL AST 32 (17-59) IU/L ALT 20 (<50) IU/L Alkaline Phosphatase 85 (38-126) U/L Total Protein 5.7 L (6.3-8.2) g/dL Albumin 3.1 L (3.5-5.0) g/dL Globulin 2.6 (1.7-4.1) g/dL Albumin/Globulin Ratio 1.2 (1.0-2.8) Lipase 70 (23-300) U/L Blood Type O Positive Antibody Screen Negative MDM Narrative Medical decision making narrative: Acute GI Bleed / ABLA - Hx of anemia - Hx of esophagitis / gastritis - apparently bright red mixed with melena, likely source sigmoid colon - typed, crossed, serial HH - likely related to colitis / diverticulitis - had PPI in ED, to continue with Protonix - if not subsiding EGD to be considered b/o history, reports of melena and daily suppressive therapy with steroid - NPO, IVFs for now Sigmoid Colitis / Diverticulitis - Zosyn - pain managemnent Hx of Lung Transplant for fibrosis - continuing suppressive therapy CKD stage 4 - monitored renal function Hypothyroidism - levothyroxine BPH - Flomax DM - minor, on , likely fro steroid - CBGs / SS DVT prophylaxis - SCDs Discharge Plan Departure Patient Disposition: Admitted As Inpatient Clinical Impression: Colitis, Acute GI bleeding, Status post lung transplantation, Lung transplant recipient Hypothyroid Qualifiers: Hypothyroidism type: acquired Qualified Code(s): E03.9 - Hypothyroidism, unspecified Coronary artery disease Qualifiers: Coronary Disease-Associated Artery/Lesion type: [place] artery [place] vs. transplanted heart: [place] heart Associated angina: without angina Qualified Code(s): I25.10 - Atherosclerotic heart disease of [place] coronary artery without angina pectoris Diabetes Qualifiers: Diabetes mellitus type: type 2 Diabetes mellitus fdc insulin use: without intermodal customer service use Diabetes mellitus complication status: without complication Qualified Code(s): E11.9 - Type 2 diabetes mellitus without complications
[2024-09-11 06:55] LABS: Hematocrit 29.5 % (41-53); Hemoglobin 9.8 g/dL (13.5-17.5); Mean Corpuscular Hemoglobin 31.9 PG (26-34); Mean Corpuscular Volume 96.6 fL (80-100); Platelet Count 152 X10^3/uL (150-400); Red Blood Cell Count 3.06 X10^6/uL (4.5-5.9); Red Cell Distribution Width 16.1 % (11.6-14.8); White Blood Cell Count 7.9 X10^3/uL (4.5-11.0)
[2024-09-11 07:13] LABS: Blood Urea Nitrogen 69 mg/dL (9-20); Calcium 8.3 mg/dL (8.4-10.2); Carbon Dioxide 19 mmol/L (22-32); Chloride 109 mmol/L (98-107); Estimated Glomerular Filt Rate 32 mL/min (>60); Glucose 88 mg/dL (80-110); HEMOLYSIS < 15 (0-50); Potassium 5.2 mmol/L (3.4-5.1); Sodium 134 mmol/L (137-145)
[2024-09-11 07:51] LABS: Lymphocytes Percent Auto 30.1 % (25-40); Monocytes Percent Auto 11.8 % (3-14); Neutrophils Percent Auto 57.2 % (50-75)
[2024-09-11 07:52] LABS: Add Manual Diff / Slide Review NO; Basophils Absolute Auto 0 /uL (0-100); Basophils Percent Auto 0.5 % (0-2); Eosinophils Absolute Auto 0 /uL (0-450); Eosinophils Percent Auto 0.4 % (2-4); Lymphocytes Absolute Auto 2400 /uL (1100-4500); Monocytes Absolute Auto 900 /uL (0-900); Neutrophils Absolute Auto 4500 /uL (1500-7000)
[2024-09-11] MEDS: LACTATED RINGERS 1,000 ML 100 ML IV (08:22)
[2024-09-11] MEDS: PANTOPRAZOLE 40 MG VIAL IV (08:22)
[2024-09-11] MEDS: TACROLIMUS 0.5 MG CAPSULE 1 MG PO ×2 (08:23→17:30)
[2024-09-11] MEDS: predniSONE 5 MG TABLET PO (08:23)
[2024-09-11] MEDS: LEVOTHYROXINE 75 MCG TABLET 150 MCG PO (08:33)
[2024-09-11 09:41] LABS: MRSA (Nasal) PCR NOT DETECTED (Not Detect)
[2024-09-11] MEDS: PIPERACILLIN/TAZO 3.375 GM in SODIUM CHLORIDE 0.9% 100 ML IV ×2 (10:02→15:33)
[2024-09-11] MEDS: SODIUM CHLORIDE 0.9% 1,000 ML 75 ML IV (10:02)
--- NOTE | 2024-09-11 10:44 | PC.NURSE ---
Pt c/o rectal pain. Unable to void. Bladder scan 450mL, provider notified. Pt up to [facility], moderate 1PA w/ FWW and gaitbelt. Pt unsteady on feet. Able to pass large hard blood-streaked stool and voided 200mL. Pt dizzy upon standing, lightheaded and finding difficulty with ambulation. Pt assisted by this RN to the bed. Able to pull self up in bed and reposition. Pt specific medication Itraconazole 100mg BID at [facility] rehab. This RN called, verifieid ability to have fiber picker. [facility] RN stated she would pack it up and be ready for . This information was relayed to , who has not gone to grab patient specific medication at this time. Care ongoing.
[2024-09-11] MEDS: INSULIN LISPRO 100 UNIT/ML 3ML VIAL SUBCUT (12:19)
--- NOTE | 2024-09-11 13:54 | CM.DANOTE ---
Initial DCP Assessment Note Pt is an 83 yo male, typically lives w/sp in [place], has been at [facility] recently. Patient presents to the ER with blood in his stool. Patient found to have a large amount of stool in the colon and has had a BM since admission. May be ready for return to tomorrow 09/12. PCP: Shy Angel Payer: MCR/AARP Reviewed chart, pt discussed in multidisciplinary rounds this morning. Met w/patient to review discharge plan; patient would like to return to and tells this EXPORT PACKER that he has paid privately for one month. Updated Alesha at that patient may be ready for return tomorrow 09/12. Patient is welcome to return, quill picking machine operator tentatively scheduled in the afternoon. CM team will plan to follow clinical course closely. No need for PASRR- return to SNF. DENIZ Schwarz Discharge Planning/Care Management CM Discharge Assessment Start: 09/11/24 13:43 Freq: Status: Active Protocol: Document 09/11/24 13:43 BERTHA (Rec: 09/11/24 13:54 BERTHA [id number]) Discharge Planning Assessment Assigned River Boat Captain DENIZ Palacio DPOA/Assigned Designee Name Dieter Hughes, spouse Contact Information [phone] Advance Directives? Yes Advance Directives on File No History Provided By Patient,Significant Other, Medical Record Has Patient been admitted in last 30 No days? Prior Living Arrangements Skilled Nurse Facility Type of transporation used prior to Relies on Others admit Willing to Return to Facility? Yes Independent with ADL's No Is patient alert and oriented? Yes Needs Assistance With Bathing,Grooming,Meal Prep, Toileting,Managing Medications ,Home Chores / Shopping Patient/Family Preference Longterm Facility Barriers to Discharge No Discharge Plan Longterm Facility Transportation Arrangement Likely wheelchair van at [place] Referrals Initiated Longterm
--- NOTE | 2024-09-11 14:10 | P.HP_ITS ---
History of Present Illness History of Present Illness Date Patient Seen: 09/11/24 Time Patient Seen: 11:00 Chief complaint: black stools Narrative: Per overnight provider, 83 y/o with PMH of lung transplant, hypothyroidism and CKD stage 4, sent from facility for GI bleed. Apparently he had bright red blood and melena today on several occasions. He was seen a day before in the ED after he sustained GLF, injuring left arm and head. He had non-revealing CTH, CT cervical spine, CXR and Hip Xray. Today he complained on diffuse, Rt>Lt abdominal tenderness and pain. Workup shows anemia, CKD and sigmoid colitis vs diverticulitis. He was typed and crossed, given abx and admitted for Diverticulitis, GI Bleed and ABLA. Interval history: patient with large formed bowel movement this morning, somewhat dark but no overt blood this morning. CT showed large stool ball. Some urinary retention but resolved after his bowel movement. Abdominal pain improved after his bowel movement. Repeat h/h pending this afternoon. [facility] Medical History Partial obstruction of small intestine COVID-19 Aortic stenosis Encounter for subsequent annual wellness visit (AWV) in Medicare patient Macrocytosis CKD (chronic kidney disease) stage 3, GFR 30-59 ml/min Chronic low back pain Hearing impaired IPF (idiopathic pulmonary fibrosis) Hypothyroid Diabetes Hyperlipidemia Hypertension Coronary artery disease Anemia Tubular adenoma of colon Surgical History Status post lung transplantation Hx of cholecystectomy Hx of bilateral cataract extraction H/O lung transplant (2009) Family History Father Patient denies significant medical history Mother Patient denies significant medical history Social History marital status: household members: spouse Smoking Status: Former smoker alcohol intake: former Meds Home Medications and Allergies Home Medications Medication Instructions Recorded Confirmed Type azithromycin 250 mg tablet 500 mg PO DAILY 08/28/24 09/11/24 History itraconazole 100 mg capsule 100 mg PO BID 08/28/24 09/11/24 History prednisone 5 mg tablet 5 mg PO DAILY 08/28/24 09/11/24 History sitagliptin phosphate 50 mg tablet 50 mg PO DAILY 08/28/24 09/11/24 History (Dieteruvia) sulfamethoxazole 800 0.5 tab PO 3XW 08/28/24 09/11/24 History mg-trimethoprim 160 mg tablet tacrolimus 1 mg capsule, 1 mg PO Q12H 08/28/24 09/11/24 History immediate-release tamsulosin 0.4 mg capsule 0.4 mg PO QPM 08/28/24 09/11/24 History valganciclovir 450 mg tablet 450 mg PO 3XW 08/28/24 09/11/24 History levothyroxine 150 mcg tablet 150 mcg PO DAILY #90 tabs 09/04/24 09/11/24 Rx Allergies Allergy/AdvReac Type Severity Reaction Status Date / Time No Known Drug Allergies Allergy Verified 09/09/24 20:06 Review of Systems Review of Systems Narrative: All other systems reviewed with the patient and are negative unless otherwise stated. Exam Vital Signs (past 8 hours): - 09/11/24 07:00 09/11/24 08:32 09/11/24 11:17 Temperature Pulse Rate 83 82 Respiratory Rate 18 14 Blood Pressure 114/59 L Pulse Oximetry 96 Oxygen Delivery Method Room Air Oxygen Flow Rate 0 09/11/24 11:30 09/11/24 11:51 09/11/24 11:51 Temperature Pulse Rate 90 88 Respiratory Rate 23 13 Blood Pressure 113/58 L Pulse Oximetry 95 Oxygen Delivery Method Oxygen Flow Rate 09/11/24 12:00 09/11/24 12:30 09/11/24 12:42 Temperature 98.2 F Pulse Rate 82 80 Respiratory Rate 15 18 Blood Pressure Pulse Oximetry 96 97 Oxygen Delivery Method Oxygen Flow Rate Oxygen Delivery Method Room Air Oxygen Flow Rate 0 Narrative Exam Narrative: Gen: Chronically ill appearing male, no acute distress CV RRR no m/r/g Pulm: CTA B/l Abd S NT ND Ext: no edema Objective Labs 09/11/24 06:33 09/11/24 06:33 Labs: Laboratory Results - last 24 hr 09/11/24 09/11/24 09/11/24 02:30 02:50 05:45 WBC 8.4 RBC 3.42 L Hgb 10.9 L Hct 33.0 L MCV 96.5 MCH 31.7 MCHC 32.9 RDW 16.3 H Plt Count 175 Neut % (Auto) 55.7 Lymph % (Auto) 30.4 [place] % (Auto) 12.8 Eos % (Auto) 0.4 L Baso % (Auto) 0.7 Neut # (Auto) 4700 Lymph # (Auto) 2600 [place] # (Auto) 1100 H Eos # (Auto) 0 Baso # (Auto) 100 Total Counted Seg Neutrophils % Band Neutrophils % Lymphocytes % (Manual) Atypical Lymphs % Monocytes % (Manual) Eosinophils % (Manual) Basophils % (Manual) Metamyelocytes % Myelocytes % Promyelocytes % Blast Cells % Neutrophils # (Manual) Nucleated RBCs Differential Comment Hypersegmented Neuts Reactive Lymphocytes Plasma Cells Smudge Cells Other Cell Type Toxic Granulation Toxic Vacuolation Dohle Bodies [place]on Rods WBC Morphology Comment Platelet Estimate Clumped Platelets Plt Morphology Comment RBC Morphology Dimorphic RBCs Polychromasia Hypochromasia Poikilocytosis Basophilic Stippling Anisocytosis Microcytosis Macrocytosis Spherocytes Pappenheimer Bodies Sickle Cells Target Cells Tear Drop Cells Ovalocytes Stomatocytes Helmet Cells [place] Bodies [place] Rings Kelsi Cells Acanthocytes (Spur) Rouleaux Schistocytes PT 10.9 INR 1.0 Sodium 135 L Potassium 5.0 Chloride 105 Carbon Dioxide 23 BUN 72 H Creatinine 2.15 H Estimated GFR 29 L BUN/Creatinine Ratio 33.5 H Glucose 100 Calcium 8.9 Total Bilirubin 0.3 AST 32 ALT 20 Alkaline Phosphatase 85 Total Protein 5.7 L Albumin 3.1 L Globulin 2.6 Albumin/Globulin Ratio 1.2 Lipase 70 Nasal Screen MRSA (PCR) Not detected Blood Type O Positive Antibody Screen Negative 09/11/24 06:33 WBC 7.9 RBC 3.06 L Hgb 9.8 L Hct 29.5 L MCV 96.6 MCH 31.9 MCHC 33.0 RDW 16.1 H Plt Count 152 Neut % (Auto) 57.2 Lymph % (Auto) 30.1 [place] % (Auto) 11.8 Eos % (Auto) 0.4 L Baso % (Auto) 0.5 Neut # (Auto) 4500 Lymph # (Auto) 2400 [place] # (Auto) 900 Eos # (Auto) 0 Baso # (Auto) 0 Total Counted Cancelled Seg Neutrophils % Cancelled Band Neutrophils % Cancelled Lymphocytes % (Manual) Cancelled Atypical Lymphs % Cancelled Monocytes % (Manual) Cancelled Eosinophils % (Manual) Cancelled Basophils % (Manual) Cancelled Metamyelocytes % Cancelled Myelocytes % Cancelled Promyelocytes % Cancelled Blast Cells % Cancelled Neutrophils # (Manual) Cancelled Nucleated RBCs Cancelled Differential Comment Cancelled Hypersegmented Neuts Cancelled Reactive Lymphocytes Cancelled Plasma Cells Cancelled Smudge Cells Cancelled Other Cell Type Cancelled Toxic Granulation Cancelled Toxic Vacuolation Cancelled Dohle Bodies Cancelled [place] Rods Cancelled WBC Morphology Comment Cancelled Platelet Estimate Cancelled Clumped Platelets Cancelled Plt Morphology Comment Cancelled RBC Morphology Cancelled Dimorphic RBCs Cancelled Polychromasia Cancelled Hypochromasia Cancelled Poikilocytosis Cancelled Basophilic Stippling Cancelled Anisocytosis Cancelled Microcytosis Cancelled Macrocytosis Cancelled Spherocytes Cancelled Pappenheimer Bodies Cancelled Sickle Cells Cancelled Target Cells Cancelled Tear Drop Cells Cancelled Ovalocytes Cancelled Stomatocytes Cancelled Helmet Cells Cancelled [place] Bodies Cancelled [place] Rings Cancelled Kelsi Cells Cancelled Acanthocytes (Spur) Cancelled Rouleaux Cancelled Schistocytes Cancelled PT INR Sodium 134 L Potassium 5.2 H Chloride 109 H Carbon Dioxide 19 L BUN 69 H Creatinine 2.03 H Estimated GFR 32 L BUN/Creatinine Ratio 34.0 H Glucose 88 Calcium 8.3 L Total Bilirubin AST ALT Alkaline Phosphatase Total Protein Albumin Globulin Albumin/Globulin Ratio Lipase Nasal Screen MRSA (PCR) Blood Type Antibody Screen Assessment & Plan Assessment & Plan narrative: Acute GI Bleed / Acute blood loss anemia - Hx of anemia - Hx of esophagitis / gastritis - apparently bright red mixed with melena, likely source sigmoid colon from either diverticulitis or stercoral colitis given his stool ball noted on CT. He had a large formed, hard stool this morning with improvement. - typed, crossed, serial HH, slow decrease with each lab check thus far with heidi Hg 9.8 this morning. - had PPI in ED, to continue with Protonix - discussed with general surgeon developmental education instructor today, he is not a great candidate for anesthesia here given his renal function and lung transplant. Would typically avoid lower scope in setting of active inflammation due to perforation risk. If h/h stabilizes recommends outpatient follow up, and may be better served for colonoscopy at the same facility with his transplant team. - advanced to general diet this evening, continue zosyn for diverticulitis. Sigmoid Colitis / Diverticulitis - Continue zosyn for now. - pain managemnent - outpatient follow up recommended for colonoscopy after antibiotic treatment Hx of Lung Transplant for fibrosis - continuing suppressive therapy and prophylactic agents. CKD stage 4 - monitor renal function, daily labs ordered, Cr appears near baseline today. Hypothyroidism - levothyroxine BPH with urinary retention - Flomax - initially with urinary retention, improved however after his bowel movement this morning. DM - minor, on , likely fro steroid - CBGs / SS DVT prophylaxis - SCDs Code: DNR, surrogate is patient's spouse I have utilized all available immediate resources to obtain, update, or review the patient's current medications. Dispo: inpatient status. Likely discharge home in 1-3 more days depending on clinical course and bleeding. Additional history obtained via discussions with the overnight provider (hospitalist) and general surgeon today. These discussions contributed to the creation of the above assessment and plan. I have reviewed patient's presenting documentation, labs, and imaging personally. Time-Based Coding :: [TOTAL MINUTES] spent with patient and on the chart (including review of chart, obtaining history, exam, reviewing outside data, placing orders, documenting exam and treatment plan, and counseling patient) on [DATE].
[2024-09-11 15:23] LABS: Hematocrit 29.7 % (41-53); Hemoglobin 9.8 g/dL (13.5-17.5)
[2024-09-11] MEDS: MINERAL OIL 1 EACH ENEMA PR (15:33)
[2024-09-11] MEDS: TAMSULOSIN 0.4 MG CAPSULE PO (16:50)
[2024-09-11] MEDS: MORPHINE 4 MG/ML INJ 2 MG IV (18:34)
[2024-09-11] MEDS: ITRACONAZOLE 100 MG 100 EACH PO (21:37)
[2024-09-12] VITALS (44 sets, daily range): BP systolic 103–138; BP diastolic 51–63; PULSE 71–95; RESP 12–33; TEMP 36.6–36.9; O2SAT 93–99
[2024-09-12] MEDS: PIPERACILLIN/TAZO 3.375 GM in SODIUM CHLORIDE 0.9% 100 ML IV ×3 (00:37→16:05)
[2024-09-12 04:47] LABS: Add Manual Diff / Slide Review NO; Basophils Absolute Auto 100 /uL (0-100); Basophils Percent Auto 0.7 % (0-2); Eosinophils Absolute Auto 0 /uL (0-450); Eosinophils Percent Auto 0.4 % (2-4); Hemoglobin 9.4 g/dL (13.5-17.5); Lymphocytes Absolute Auto 2700 /uL (1100-4500); Lymphocytes Percent Auto 34.2 % (25-40); Mean Corpuscular HGB Conc 33.5 % (30-36); Mean Corpuscular Hemoglobin 32.2 PG (26-34); Mean Corpuscular Volume 96.2 fL (80-100); Monocytes Absolute Auto 800 /uL (0-900); Monocytes Percent Auto 10.2 % (3-14); Neutrophils Absolute Auto 4300 /uL (1500-7000); Neutrophils Percent Auto 54.5 % (50-75); Platelet Count 169 X10^3/uL (150-400); Red Blood Cell Count 2.91 X10^6/uL (4.5-5.9); Red Cell Distribution Width 16.1 % (11.6-14.8); White Blood Cell Count 7.8 X10^3/uL (4.5-11.0)
[2024-09-12 05:13] LABS: Alanine Aminotransferase 19 IU/L (<50); Albumin 2.8 g/dL (3.5-5.0); Albumin Globulin Ratio 1.2 (1.0-2.8); Alkaline Phosphatase 71 U/L (38-126); Aspartate Aminotransferase 33 IU/L (17-59); BUN Creatinine Ratio 30.9 (6-22); Bilirubin Total 0.2 mg/dL (0.2-1.3); Blood Urea Nitrogen 67 mg/dL (9-20); Calcium 7.9 mg/dL (8.4-10.2); Carbon Dioxide 18 mmol/L (22-32); Chloride 108 mmol/L (98-107); Estimated Glomerular Filt Rate 29 mL/min (>60); Globulin 2.4 g/dL (1.7-4.1); Glucose 71 mg/dL (80-110); HEMOLYSIS < 15 (0-50); Magnesium 1.9 mg/dL (1.6-2.3); Potassium 4.7 mmol/L (3.4-5.1); Sodium 134 mmol/L (137-145); Total Protein 5.2 g/dL (6.3-8.2)
[2024-09-12] MEDS: AZITHROMYCIN 250 MG TABLET 500 MG PO (05:39)
[2024-09-12] MEDS: TACROLIMUS 0.5 MG CAPSULE 1 MG PO ×2 (05:39→16:56)
[2024-09-12] MEDS: LEVOTHYROXINE 75 MCG TABLET 150 MCG PO (06:40)
[2024-09-12] MEDS: VALGANCICLOVIR 450 MG 450 EACH PO (06:41)
--- NOTE | 2024-09-12 08:07 | P.PN_ITS ---
Subjective Subjective Interval history: Summary: 83 y/o with PMH of lung transplant, hypothyroidism and CKD stage 4, sent from facility for GI bleed. Apparently he had bright red blood and melena today on several occasions. He was seen a day before in the ED after he sustained GLF, injuring left arm and head. He had non-revealing CTH, CT cervical spine, CXR and Hip Xray. Today he complained on diffuse, Rt>Lt abdominal tenderness and pain. Workup shows anemia, CKD and sigmoid colitis vs diverticulitis. He was typed and crossed, given abx and admitted for Diverticulitis, GI Bleed and ABLA. Interval history: patient with large formed bowel movement this morning, somewhat dark but no overt blood this morning. CT showed large stool ball. Some urinary retention but resolved after his bowel movement. Abdominal pain improved after his bowel movement. Repeat h/h pending this afternoon. S: No rectal bleeding overnight. He does have a lot of nasal congestion and a nonproductive cough. He notes his roommate at the facility he was diagnosed with COVID. He did not have a respiratory PCR. Exam Vital Signs (past 8 hours): - 09/12/24 04:00 09/12/24 06:00 Pulse Rate 84 78 Respiratory Rate 20 18 Blood Pressure 105/51 L 103/56 L Pulse Oximetry 98 93 Oxygen Flow Rate 0 0 Oxygen Delivery Method Room Air Oxygen Flow Rate 0 Narrative Exam Narrative: NAD, alert and oriented. Fluent speech. Lungs are clear, normal rate and effort. Intermittent cough, some scattered rhonchi. Heart is regular, no murmur gallop or rub. Abdomen is soft, non distended. Extremities are free of edema. Objective Imaging Multiple studies:: Radiologist's impression: CT abdomen and pelvis: Diverticulosis with circumferential wall thickening of the sigmoid colon and pericolonic inflammatory changes, consistent with colitis versus diverticulitis. No organized fluid collections or extraluminal gas. Stool ball within the rectum measuring up to 7.7 cm, correlate for impaction. Please see above for additional findings. Head CT: No acute intracranial pathology. No significant changes from previous study. Hip x-ray and cervical spine CT are negative for acute injury. Labs 09/12/24 03:56 09/12/24 03:56 Labs: Laboratory Results - last 24 hr 09/11/24 09/11/24 09/12/24 05:45 14:44 03:56 WBC 7.8 RBC 2.91 L Hgb 9.8 L 9.4 L Hct 29.7 L 28.0 L MCV 96.2 MCH 32.2 MCHC 33.5 RDW 16.1 H Plt Count 169 Neut % (Auto) 54.5 Lymph % (Auto) 34.2 [place] % (Auto) 10.2 Eos % (Auto) 0.4 L Baso % (Auto) 0.7 Neut # (Auto) 4300 Lymph # (Auto) 2700 [place] # (Auto) 800 Eos # (Auto) 0 Baso # (Auto) 100 Sodium 134 L Potassium 4.7 Chloride 108 H Carbon Dioxide 18 L BUN 67 H Creatinine 2.17 H Estimated GFR 29 L BUN/Creatinine Ratio 30.9 H Glucose 71 L Calcium 7.9 L Magnesium 1.9 Total Bilirubin 0.2 AST 33 ALT 19 Alkaline Phosphatase 71 Total Protein 5.2 L Albumin 2.8 L Globulin 2.4 Albumin/Globulin Ratio 1.2 Nasal Screen MRSA (PCR) Not detected PFSH Medical History Partial obstruction of small intestine COVID-19 Aortic stenosis Encounter for subsequent annual wellness visit (AWV) in Medicare patient Macrocytosis CKD (chronic kidney disease) stage 3, GFR 30-59 ml/min Chronic low back pain Hearing impaired IPF (idiopathic pulmonary fibrosis) Hypothyroid Diabetes Hyperlipidemia Hypertension Coronary artery disease Anemia Tubular adenoma of colon Surgical History Status post lung transplantation Hx of cholecystectomy Hx of bilateral cataract extraction H/O lung transplant (2009) Family History Father Patient denies significant medical history Mother Patient denies significant medical history Social History marital status: household members: spouse Smoking Status: Former smoker alcohol intake: former Assessment & Plan Assessment & Plan narrative: 1. Acute GI Bleed with acute blood loss anemia, POA and stable. - Hx of anemia - Hx of esophagitis / gastritis - apparently bright red mixed with melena, likely source sigmoid colon from either diverticulitis or stercoral colitis given his stool ball noted on CT. He had a large formed, hard stool this morning with improvement. - typed, crossed, serial HH, slow decrease with each lab check thus far with heidi Hg 9.8 this morning. - had PPI in ED, to continue with Protonix - discussed with general surgeon automation controls engineer today, he is not a great candidate for anesthesia here given his renal function and lung transplant. Would typically avoid lower scope in setting of active inflammation due to perforation risk. If h/h stabilizes recommends outpatient follow up, and may be better served for colonoscopy at the same facility with his transplant team. - advanced to general diet this evening, continue zosyn for diverticulitis. 2. Sigmoid Colitis verses possible diverticulitis, POA. - Continue zosyn for now. - pain managemnent - outpatient follow up recommended for colonoscopy after antibiotic treatment 3. Cough and nasal congestion, present on admission and active. 4. Hx of Lung Transplant for fibrosis, stable. - continuing suppressive therapy and prophylactic agents. 5. CKD stage 4, stable. - monitor renal function, daily labs ordered, Cr appears near baseline today. 6. Hypothyroidism, stable. - levothyroxine 7. BPH with urinary retention, stable. - Flomax - initially with urinary retention, improved however after his bowel movement this morning. 8. DM 2, stable. - CBGs / SS PLAN: -respiratory PCR to rule out COVID or other URI given symptoms. -continue PPI b.i.d.. -monitor hemoglobin, blood products as needed. Not a great candidate for endoscopy. -continue Zosyn. BLAZE: 09/14. DVT prophylaxis - SCDs (blood loss anemia) Code: DNR, surrogate is patient's spouse Time-Based Coding :: [TOTAL MINUTES] spent with patient and on the chart (including review of chart, obtaining history, exam, reviewing outside data, placing orders, documenting exam and treatment plan, and counseling patient) on [DATE].
[2024-09-12] MEDS: PANTOPRAZOLE 40 MG VIAL IV (10:03)
[2024-09-12] MEDS: predniSONE 5 MG TABLET PO (10:03)
[2024-09-12] MEDS: TRIMETH/SULFA 160/800 (DS) TABLET 0.5 TAB PO (10:09)
[2024-09-12] MEDS: ITRACONAZOLE 100 MG 100 EACH PO (10:15)
[2024-09-12 11:37] LABS: Adenovirus Not Detected (Not Detect); B. parapertussis Not Detected (Not Detecte); Bordetella pertussis Not Detected (Not Detect); Chlamydophila pneumoniae Not Detected (Not Detect); Coronavirus 229E Not Detected (Not Detect); Coronavirus HKU1 Not Detected (Not Detect); Coronavirus NL 63 Not Detected (Not Detect); Coronavirus OC43 Not Detected (Not Detect); Human Metapneumovirus Not Detected (Not Detect); Human Rhinovirus/Enterovirus Not Detected (Not Detect); Influenza A H1-2009 Detected (Not Detect); Influenza B Not Detected (Not Detect); Mycoplasma pneumoniae Not Detected (Not Detect); Parainfluenza Virus 1 Not Detected (Not Detect); Parainfluenza Virus 2 Not Detected (Not Detect); Parainfluenza Virus 3 Not Detected (Not Detect); Parainfluenza Virus 4 Not Detected (Not Detect); Respiratory Syncytial Virus Not Detected (Not Detect); SARS- CoV-2 Not Detected (Not Detecte)
[2024-09-12] MEDS: OSELTAMIVIR 75 MG CAPSULE PO (12:27)
[2024-09-12] MEDS: MORPHINE 4 MG/ML INJ 2 MG IV ×2 (14:14→20:29)
[2024-09-12] MEDS: CODEINE/GUAIFENESIN LIQUID 5ML UDC 10 ML PO ×2 (16:53→22:58)
[2024-09-12] MEDS: TAMSULOSIN 0.4 MG CAPSULE PO (16:56)
[2024-09-12] MEDS: OSELTAMIVIR 30 MG CAPSULE PO (20:10)
[2024-09-12] MEDS: SODIUM CHLORIDE 0.9% FLUSH 10 ML IV (20:30)
[2024-09-13 00:19] VITALS: BP 130/91; PULSE 83; RESP 15; TEMP 36.6; O2SAT 99
[2024-09-13] MEDS: PIPERACILLIN/TAZO 3.375 GM in SODIUM CHLORIDE 0.9% 100 ML IV ×3 (01:03→16:19)
[2024-09-13 04:42] LABS: Add Manual Diff / Slide Review NO; Basophils Absolute Auto 0 /uL (0-100); Basophils Percent Auto 0.5 % (0-2); Eosinophils Absolute Auto 0 /uL (0-450); Eosinophils Percent Auto 0.2 % (2-4); Hematocrit 26.6 % (41-53); Lymphocytes Absolute Auto 1900 /uL (1100-4500); Lymphocytes Percent Auto 28.6 % (25-40); Mean Corpuscular HGB Conc 33.9 % (30-36); Mean Corpuscular Hemoglobin 32.3 PG (26-34); Mean Corpuscular Volume 95.3 fL (80-100); Monocytes Absolute Auto 800 /uL (0-900); Monocytes Percent Auto 12.3 % (3-14); Neutrophils Absolute Auto 3900 /uL (1500-7000); Neutrophils Percent Auto 58.4 % (50-75); Platelet Count 136 X10^3/uL (150-400); Red Blood Cell Count 2.79 X10^6/uL (4.5-5.9); Red Cell Distribution Width 16.5 % (11.6-14.8); White Blood Cell Count 6.7 X10^3/uL (4.5-11.0)
[2024-09-13 04:52] LABS: Alanine Aminotransferase 18 IU/L (<50); Albumin 2.6 g/dL (3.5-5.0); Alkaline Phosphatase 63 U/L (38-126); Aspartate Aminotransferase 38 IU/L (17-59); BUN Creatinine Ratio 28.2 (6-22); Bilirubin Total 0.4 mg/dL (0.2-1.3); Blood Urea Nitrogen 58 mg/dL (9-20); Calcium 7.5 mg/dL (8.4-10.2); Carbon Dioxide 19 mmol/L (22-32); Chloride 109 mmol/L (98-107); Estimated Glomerular Filt Rate 31 mL/min (>60); Globulin 2.5 g/dL (1.7-4.1); Glucose 82 mg/dL (80-110); HEMOLYSIS < 15 (0-50); Magnesium 1.9 mg/dL (1.6-2.3); Potassium 4.9 mmol/L (3.4-5.1); Sodium 134 mmol/L (137-145); Total Protein 5.1 g/dL (6.3-8.2)
[2024-09-13 05:14] VITALS: BP 130/67; PULSE 78; RESP 12; TEMP 36.4; O2SAT 98
[2024-09-13 08:00] VITALS: BP 123/76; PULSE 76; RESP 22; TEMP 36.6; O2SAT 97
[2024-09-13] MEDS: LEVOTHYROXINE 75 MCG TABLET 150 MCG PO (09:41)
[2024-09-13] MEDS: PANTOPRAZOLE 40 MG VIAL IV (09:42)
[2024-09-13] MEDS: predniSONE 5 MG TABLET PO (09:42)
[2024-09-13] MEDS: OSELTAMIVIR 30 MG CAPSULE PO ×2 (09:42→20:14)
[2024-09-13] MEDS: INSULIN LISPRO 100 UNIT/ML 3ML VIAL SUBCUT (11:57)
[2024-09-13 12:00] VITALS: BP 136/73; PULSE 80; RESP 22; TEMP 36.4; O2SAT 100
[2024-09-13] MEDS: SODIUM CHLORIDE 0.9% FLUSH 10 ML IV ×2 (12:00→20:14)
--- NOTE | 2024-09-13 12:26 | CM.DPNOTE ---
DCP Note SOLUTION SALES SENIOR EXECUTIVE reviewed EMR Per provider in morning rounds, pt likely will be cleared to dc back to tomorrow (sunday). SOLUTION SALES SENIOR EXECUTIVE spoke with Anna from , will rereview his case, transport time for Sunday pending. SOLUTION SALES SENIOR EXECUTIVE met with pt and spouse Dieter in room. reviewed DCP. in agreement to return to . Deny questions at this time. P: dc to [facility] Sunday vs when medically stable. time pending. no PASRR needed. CM team will continue to follow as needed DENIZ Vásquez
--- NOTE | 2024-09-13 14:24 | PM.PN.1 ---
Subjective Subjective Date Patient Seen: 09/13/24 Time Patient Seen: 08:05 Interval history: Summary: 83 y/o with PMH of lung transplant, hypothyroidism and CKD stage 4, sent from facility for GI bleed. Apparently he had bright red blood and melena today on several occasions. He was seen a day before in the ED after he sustained GLF, injuring left arm and head. He had non-revealing CTH, CT cervical spine, CXR and Hip Xray. Today he complained on diffuse, Rt>Lt abdominal tenderness and pain. Workup shows anemia, CKD and sigmoid colitis vs diverticulitis. He was typed and crossed, given abx and admitted for Diverticulitis, GI Bleed and ABLA. Interval history: patient with large formed bowel movement this morning, somewhat dark but no overt blood this morning. CT showed large stool ball. Some urinary retention but resolved after his bowel movement. Abdominal pain improved after his bowel movement. Repeat h/h pending this afternoon. S: No further bleeding is reported. He reports feeling better. He was able to get up and walk short distance in the room with nursing. His roommate at his facility also had influenza. Exam Vital Signs (past 8 hours): - 09/13/24 07:00 09/13/24 08:00 09/13/24 12:00 Temperature 97.9 F 97.6 F Pulse Rate 76 80 Respiratory Rate 22 22 Blood Pressure 123/76 136/73 Pulse Oximetry 97 100 Oxygen Delivery Method Room Air Oxygen Delivery Method Room Air Oxygen Flow Rate 0 Narrative Exam Narrative: NAD, alert and oriented. Fluent speech. Lungs are clear, normal rate and effort. Intermittent cough, some scattered rhonchi. Heart is regular, no murmur gallop or rub. Abdomen is soft, non distended. Extremities are free of edema. Objective Labs 09/13/24 04:12 09/13/24 04:12 Labs: Laboratory Results - last 24 hr 09/13/24 04:12 WBC 6.7 RBC 2.79 L Hgb 9.0 L Hct 26.6 L MCV 95.3 MCH 32.3 MCHC 33.9 RDW 16.5 H Plt Count 136 L Neut % (Auto) 58.4 Lymph % (Auto) 28.6 [place] % (Auto) 12.3 Eos % (Auto) 0.2 L Baso % (Auto) 0.5 Neut # (Auto) 3900 Lymph # (Auto) 1900 [place] # (Auto) 800 Eos # (Auto) 0 Baso # (Auto) 0 Sodium 134 L Potassium 4.9 Chloride 109 H Carbon Dioxide 19 L BUN 58 H Creatinine 2.06 H Estimated GFR 31 L BUN/Creatinine Ratio 28.2 H Glucose 82 Calcium 7.5 L Magnesium 1.9 Total Bilirubin 0.4 AST 38 ALT 18 Alkaline Phosphatase 63 Total Protein 5.1 L Albumin 2.6 L Globulin 2.5 Albumin/Globulin Ratio 1.0 PFSH Medical History Partial obstruction of small intestine COVID-19 Aortic stenosis Encounter for subsequent annual wellness visit (AWV) in Medicare patient Macrocytosis CKD (chronic kidney disease) stage 3, GFR 30-59 ml/min Chronic low back pain Hearing impaired IPF (idiopathic pulmonary fibrosis) Hypothyroid Diabetes Hyperlipidemia Hypertension Coronary artery disease Anemia Tubular adenoma of colon Surgical History Status post lung transplantation Hx of cholecystectomy Hx of bilateral cataract extraction H/O lung transplant (2009) Family History Father Patient denies significant medical history Mother Patient denies significant medical history Social History marital status: household members: spouse Smoking Status: Former smoker alcohol intake: former Assessment & Plan Assessment & Plan narrative: 1. Acute GI Bleed with acute blood loss anemia, POA and stable. - Hx of anemia - Hx of esophagitis / gastritis - apparently bright red mixed with melena, likely source sigmoid colon from either diverticulitis or stercoral colitis given his stool ball noted on CT. He had a large formed, hard stool this morning with improvement. - typed, crossed, serial HH, slow decrease with each lab check thus far with heidi Hg 9.8 this morning. - had PPI in ED, to continue with Protonix - discussed with general surgeon and felt to be a high risk candidate for anesthesia here given his renal function and lung transplant. Would typically avoid lower scope in setting of active inflammation due to perforation risk. If h/h stabilizes recommends outpatient follow up, and may be better served for colonoscopy at the same facility with his transplant team. - advanced to general diet this evening, continue zosyn for diverticulitis. 2. Sigmoid Colitis verses possible diverticulitis, POA. - Continue zosyn for now. - pain managemnent - outpatient follow up recommended for colonoscopy after antibiotic treatment 3. Cough and nasal congestion, present on admission and improving. 4. Hx of Lung Transplant for fibrosis, stable. - continuing suppressive therapy and prophylactic agents. 5. CKD stage 4, stable. - monitor renal function, daily labs ordered, Cr appears near baseline today. 6. Hypothyroidism, stable. - levothyroxine. Note TSH was 11.5 on 08/20 and 17.8 on 08/12/24 7. BPH with urinary retention, stable. - Flomax - initially with urinary retention, improved however after his bowel movement this morning. 8. DM 2, stable. - CBGs / SS PLAN: -continue PPI b.i.d.. -monitor hemoglobin, blood products as needed. Not a great candidate for endoscopy. -continue Zosyn, transition to oral abx at discharge BLAZE: 09/14. DVT prophylaxis - SCDs (blood loss anemia) Code: DNR, surrogate is patient's spouse IH PROFEE Charge codes Subsequent inpatient/observation care: 40464
[2024-09-13] MEDS: MORPHINE 4 MG/ML INJ 2 MG IV (15:39)
[2024-09-13 16:00] VITALS: BP 106/69; PULSE 83; RESP 24; TEMP 36.2; O2SAT 98
[2024-09-13] MEDS: TACROLIMUS 0.5 MG CAPSULE 1 MG PO (16:22)
[2024-09-13] MEDS: TAMSULOSIN 0.4 MG CAPSULE PO (16:23)
[2024-09-13] MEDS: ITRACONAZOLE 100 MG 100 EACH PO (16:26)
[2024-09-13 20:00] VITALS: BP 116/67; PULSE 86; RESP 16; TEMP 36.5; O2SAT 100
[2024-09-13] MEDS: ACETAMINOPHEN 325 MG TABLET 650 MG PO (20:25)
[2024-09-13] MEDS: ONDANSETRON 4 MG/2 ML INJ IV (21:23)
[2024-09-14] VITALS: BP 137/70; PULSE 96; TEMP 36.7; O2SAT 98
[2024-09-14] MEDS: PIPERACILLIN/TAZO 3.375 GM in SODIUM CHLORIDE 0.9% 100 ML IV ×2 (00:20→08:44)
[2024-09-14 04:00] VITALS: BP 100/62; PULSE 89; RESP 16; TEMP 36.6; O2SAT 93
[2024-09-14 05:06] LABS: Add Manual Diff / Slide Review NO; Basophils Absolute Auto 0 /uL (0-100); Basophils Percent Auto 0.3 % (0-2); Eosinophils Absolute Auto 100 /uL (0-450); Eosinophils Percent Auto 0.8 % (2-4); Hematocrit 26.5 % (41-53); Hemoglobin 9.1 g/dL (13.5-17.5); Lymphocytes Absolute Auto 2000 /uL (1100-4500); Lymphocytes Percent Auto 31.5 % (25-40); Mean Corpuscular HGB Conc 34.4 % (30-36); Mean Corpuscular Hemoglobin 32.7 PG (26-34); Mean Corpuscular Volume 95.1 fL (80-100); Monocytes Absolute Auto 800 /uL (0-900); Monocytes Percent Auto 12.5 % (3-14); Neutrophils Absolute Auto 3600 /uL (1500-7000); Neutrophils Percent Auto 54.9 % (50-75); Platelet Count 159 X10^3/uL (150-400); Red Blood Cell Count 2.78 X10^6/uL (4.5-5.9); Red Cell Distribution Width 16.6 % (11.6-14.8); White Blood Cell Count 6.5 X10^3/uL (4.5-11.0)
[2024-09-14 05:25] LABS: Alanine Aminotransferase 19 IU/L (<50); Albumin 2.8 g/dL (3.5-5.0); Albumin Globulin Ratio 1.1 (1.0-2.8); Alkaline Phosphatase 68 U/L (38-126); Aspartate Aminotransferase 42 IU/L (17-59); BUN Creatinine Ratio 22.7 (6-22); Bilirubin Total 0.4 mg/dL (0.2-1.3); Blood Urea Nitrogen 53 mg/dL (9-20); Calcium 7.7 mg/dL (8.4-10.2); Carbon Dioxide 20 mmol/L (22-32); Chloride 110 mmol/L (98-107); Estimated Glomerular Filt Rate 27 mL/min (>60); Globulin 2.5 g/dL (1.7-4.1); Glucose 81 mg/dL (80-110); HEMOLYSIS < 15 (0-50); Magnesium 1.9 mg/dL (1.6-2.3); Potassium 4.5 mmol/L (3.4-5.1); Sodium 136 mmol/L (137-145); Total Protein 5.3 g/dL (6.3-8.2)
[2024-09-14] MEDS: TACROLIMUS 0.5 MG CAPSULE 1 MG PO (06:17)
[2024-09-14] MEDS: LEVOTHYROXINE 75 MCG TABLET 150 MCG PO (06:17)
[2024-09-14 08:00] VITALS: BP 110/6; PULSE 90; RESP 18; O2SAT 98
[2024-09-14] MEDS: predniSONE 5 MG TABLET PO (08:43)
[2024-09-14] MEDS: PANTOPRAZOLE 40 MG VIAL IV (08:43)
[2024-09-14] MEDS: SODIUM CHLORIDE 0.9% FLUSH 10 ML IV (08:43)
[2024-09-14] MEDS: ITRACONAZOLE 100 MG 100 EACH PO (08:43)
[2024-09-14] MEDS: OSELTAMIVIR 30 MG CAPSULE PO (09:13)
--- NOTE | 2024-09-14 09:39 | P.DS_ITS ---
History of Present Illness History of Present Illness Date Patient Seen: 09/14/24 Time Patient Seen: 08:03 Date of Onset of Symptoms: 09/11/24 Chief complaint: black stools Narrative: 83 y/o with PMH of lung transplant, hypothyroidism and CKD stage 4, sent from facility for GI bleed. Apparently he had bright red blood and melena today on several occasions. He was seen a day before in the ED after he sustained GLF, injuring left arm and head. He had non-revealing CTH, CT cervical spine, CXR and Hip Xray. Today he complained on diffuse, Rt>Lt abdominal tenderness and pain. Workup shows anemia, CKD and sigmoid colitis vs diverticulitis. He was typed and crossed, given abx and admitted for Diverticulitis, GI Bleed and ABLA. Patient with large formed bowel movement this morning, somewhat dark but no overt blood this morning. CT showed large stool ball. Some urinary retention but resolved after his bowel movement. Abdominal pain improved after his bowel movement. Repeat h/h pending this afternoon. Discharge Providers Provider Date of admission: 09/11/24 04:17 Discharge Date: 09/14/24 Primary care physician: Shy Angel DO Discharge provider: Julio C Sibley MD Summary Hospital Course Discharge Diagnosis: 1. Acute GI Bleed with acute blood loss anemia, stable and improving. 2. Sigmoid colitis versus possible diverticulitis. 3. Influenza A infection, stable and improving. 4. Hx of Lung Transplant for fibrosis, stable. 5. CKD stage 4, stable. 6. Hypothyroidism with recently elevated TSH. 7. BPH with urinary retention, stable. Hospital Course: The patient was admitted and started on broad-spectrum antibiotics for presumed acute diverticulitis. Rectal bleeding was presumed due to diverticulitis versus stercoral colitis given the stool ball noted on CT. He had large formed, hard stool on the morning after admission. He had cough and nasal congestion and tested positive for influenza A, and was started on Tamiflu. He had an exposure to a roommate at his care facility. In regards to his GI bleed he was felt to be a high-risk candidate for anesthesia given his renal function and lung transplant, and observe with stable hematocrit, and no intervention was felt indicated. Outpatient follow-up was advised with his primary transplant team preferably. Other medical issues remained stable. He had urinary retention but this improved after his bowel movement and he was continued on routine tamsulosin. Arrangements were made for discharge back to his intermediate facility. Repeat BMP and CBC advised in 1 week. Follow up TSH is advised in the appropriate time given recently elevated TSH measurements noted prior to admission. Status at Discharge Cognitive/behavioral status at discharge: oriented Functional status at discharge: uses cane/walker Overall status at discharge: patient is progressing back to baseline Time Spent with Patient Time spent: Greater than 30 minutes Exam Vital Signs (past 8 hours): - 09/14/24 04:00 09/14/24 07:00 09/14/24 08:00 Temperature 97.8 F Pulse Rate 89 90 Respiratory Rate 16 18 Blood Pressure 100/62 110/6 L Pulse Oximetry 93 98 Oxygen Delivery Method Room Air Oxygen Flow Rate 0 0 Oxygen Delivery Method Room Air Oxygen Flow Rate 0 Narrative Exam Narrative: NAD, alert and oriented. Fluent speech. Lungs are clear, normal rate and effort. Intermittent cough, some scattered rhonchi. Heart is regular, no murmur gallop or rub. Abdomen is soft, non distended. Extremities are free of edema. Objective Imaging *: Radiologist's impression: 1. Chest CT 09/09/2024: 1. No displaced rib fractures. No aggressive appearing bony lesions. 2. Scattered scarring/atelectasis in bilateral lung archibald. No focal infiltrate, pleural effusion or pneumothorax. 3. Severe atherosclerotic calcifications in coronary arteries. No mediastinal or hilar lymphadenopathy. Small hiatal hernia. 2. Cervical spine CT 09/09/2024: 1. No displaced fracture or traumatic subluxation. 2. Degenerative disc disease throughout cervical spine as above. 3. Head CT 09/09/2024: No acute intracranial pathology. No significant changes from previous study. 4. Hip x-ray 09/09/2024: No acute left hip fracture or dislocation. No evidence of avascular necrosis. Bilateral hip joint osteoarthritis. 5. Abdomen/pelvis CT 8 09/11/2024: Diverticulosis with circumferential wall thickening of the sigmoid colon and pericolonic inflammatory changes, consistent with colitis versus diverticulitis. No organized fluid collections or extraluminal gas. Stool ball within the rectum measuring up to 7.7 cm, correlate for impaction. Please see above for additional findings. Labs 09/14/24 04:19 09/14/24 04:19 Labs: Laboratory Results - last 24 hr 09/14/24 04:19 WBC 6.5 RBC 2.78 L Hgb 9.1 L Hct 26.5 L MCV 95.1 MCH 32.7 MCHC 34.4 RDW 16.6 H Plt Count 159 Neut % (Auto) 54.9 Lymph % (Auto) 31.5 [place] % (Auto) 12.5 Eos % (Auto) 0.8 L Baso % (Auto) 0.3 Neut # (Auto) 3600 Lymph # (Auto) 2000 [place] # (Auto) 800 Eos # (Auto) 100 Baso # (Auto) 0 Sodium 136 L Potassium 4.5 Chloride 110 H Carbon Dioxide 20 L BUN 53 H Creatinine 2.33 H Estimated GFR 27 L BUN/Creatinine Ratio 22.7 H Glucose 81 Calcium 7.7 L Magnesium 1.9 Total Bilirubin 0.4 AST 42 ALT 19 Alkaline Phosphatase 68 Total Protein 5.3 L Albumin 2.8 L Globulin 2.5 Albumin/Globulin Ratio 1.1 PFSH Medical History Partial obstruction of small intestine COVID-19 Aortic stenosis Encounter for subsequent annual wellness visit (AWV) in Medicare patient Macrocytosis CKD (chronic kidney disease) stage 3, GFR 30-59 ml/min Chronic low back pain Hearing impaired IPF (idiopathic pulmonary fibrosis) Hypothyroid Diabetes Hyperlipidemia Hypertension Coronary artery disease Anemia Tubular adenoma of colon Surgical History Status post lung transplantation Hx of cholecystectomy Hx of bilateral cataract extraction H/O lung transplant (2009) Family History Father Patient denies significant medical history Mother Patient denies significant medical history Social History marital status: household members: spouse Smoking Status: Former smoker alcohol intake: former Discharge Plan Discharge Plan Patient Disposition: SNF Transfer to: [facility] Under care of provider: BMP and CBC in 1 week Consult as needed: Dental, Hearing, Mental health, Podiatry and Vision Discharge orders & Medications Prescriptions: New oseltamivir [Tamiflu] 30 mg Capsule 30 mg PO BID Qty: 10 0RF amoxicillin-pot clavulanate 875-125 mg tablet 1 tab PO BID Qty: 10 0RF Continued levothyroxine 150 mcg tablet 150 mcg PO DAILY Qty: 90 3RF valganciclovir 450 mg tablet 450 mg PO 3XW Rx Instructions: Patient reports he takes this med 3 X weekly on , Sun, and . azithromycin 250 mg tablet 500 mg PO DAILY Rx Instructions: Pts instructions say to take 1 tablet by mouth Sunday,,Sunday prednisone 5 mg tablet 5 mg PO DAILY sulfamethoxazole-trimethoprim 800-160 mg tablet 0.5 tab PO 3XW tamsulosin 0.4 mg capsule 0.4 mg PO QPM itraconazole 100 mg capsule 100 mg PO BID tacrolimus 1 mg capsule 1 mg PO Q12H Januvia 50 mg tablet 50 mg PO DAILY Follow up/Referrals: Shy Angel DO [Primary Care Provider] - Visit Report/Discharge Packet Stand Alone Forms: Patient Portal/API Discharge Data Primary Care Provider: Shy Angel Quality MIPS - Admit I confirm the patient?s Advance Care Plan is present, Code status is documented, Surrogate decision maker is in patient?s record [If Yes, STOP here]: Yes MIPS - Meds 'Current medications' to include all prescriptions, [id number] products, herbals, cannabis/cannabidiol products, and vitamin/mineral/dietary (nutritional) supplements. I have utilized all available resources to obtain, update, or review the patient?s current medications. [If Yes, STOP here]: Yes MIPS - DC The patient has a history of heart transplant or Left Ventricular Assist Device (LVAD). If yes, STOP here.: No The patient has current or prior documentation of left ventricular ejection fraction (LVEF) less than or equal to 40%, or moderate or severely depressed left ventricular systolic function.: No A. The patient was prescribed or already taking an Angiotensin-Converting Enzyme (WAYLON) Inhibitor, or Angiotensin Receptor Fernando (ARB).: No B. The patient was prescribed or already taking a beta-fernando. [If Yes to Both A & B, STOP here]: No Patient not prescribed/taking WAYLON or ARB, no reason given.: No Patient not prescribed/taking beta-fernando, no reason given.: No PROFEE Charge Codes Discharge inpatient/observation: [id number]
[2024-09-14] MEDS: LOPERAMIDE 2 MG CAPSULE PO (09:51)
[2024-09-14 12:00] VITALS: BP 96/52; PULSE 79; RESP 14; O2SAT 96
== END 2024-09-14 12:10 | DRG 378 ==
LOC: ED 02:40 → AC 04:17 → ICU 04:42
PROVIDERS: Hospitalist; Internal Medicine; Admitting Provider Internal Medicine; Emergency Provider Emergency Medicine; Family Provider Family Medicine; PCP Family Medicine; Referring Provider Emergency Medicine; Visit Provider Internal Medicine
DX: K57.33 Diverticulitis of large intestine without perforation or abscess with bleeding (principal); D62 Acute posthemorrhagic anemia; N18.4 Chronic kidney disease, stage 4 (severe); Z94.2 Lung transplant status; E03.9 Hypothyroidism, unspecified; N40.1 Benign prostatic hyperplasia with lower urinary tract symptoms; R33.8 Other retention of urine; I12.9 Hypertensive chronic kidney disease with stage 1 through stage 4 chronic kidney disease, or unspecified chronic kidney disease; E11.22 Type 2 diabetes mellitus with diabetic chronic kidney disease; Z87.891 Personal history of nicotine dependence; J10.1 Influenza due to other identified influenza virus with other respiratory manifestations; K52.9 Noninfective gastroenteritis and colitis, unspecified; Z66 Do not resuscitate; Z79.52 Long term (current) use of systemic steroids; Z79.84 Long term (current) use of oral hypoglycemic drugs; Z79.621 Long term (current) use of calcineurin inhibitor; D63.1 Anemia in chronic kidney disease; S51.812A Laceration without foreign body of left forearm, initial encounter; R07.89 Other chest pain; W01.0XXA Fall on same level from slipping, tripping and stumbling without subsequent striking against object, initial encounter; S09.8XXA Other specified injuries of head, initial encounter
CPT/HCPCS: 36415; 70450; 71250; 72125; 73502; 74174; 80048; 80053; 82962; 83690; 83735; 85014; 85018; 85025; 85610; 86850; 86900; 86901; 87633; 87797; 96361; 96365; 96374; 96375; 99284; J1171; J1815; J2270; J2405; J2470; J2543; J7507; Q9967

== ENCOUNTER → 2024-09-17 09:23 | Outpatient (CLI) | payer MEDICARE, SELFPAY ==
[2023-12-10 16:27] VITALS: BMI 27.9
[2024-09-11 04:32] VITALS: BMI 25.4
[2024-09-17 09:56] VITALS: BP 101/53; PULSE 74; RESP 18; TEMP 36.3; O2SAT 100
[2024-09-17 10:07] LABS: Hematocrit 27.4 % (41-53); Hemoglobin 9.2 g/dL (13.5-17.5)
[2024-09-17 10:29] LABS: Magnesium 1.8 mg/dL (1.6-2.3); Phosphorous 1.9 mg/dL (2.3-3.7)
[2024-09-17] MEDS: EPOETIN ALFA-EPBX 20,000 UNIT/2 ML VIAL 20000 UNIT SUBCUT (10:35)
[2024-09-18 07:08] LABS: Tacrolimus 3.9 ng/mL (2.0-20.0)
[2024-09-19 12:40] LABS: CMV DNA, Quant Real Time PCR Negative (Negative)
== END ==
LOC: ONC 09:24
PROVIDERS: Family Provider Family Medicine; PCP Family Medicine; Referring Provider Internal Medicine Nephrology; Visit Provider Internal Medicine Nephrology
DX: E83.42 Hypomagnesemia (principal); N18.32 Chronic kidney disease, stage 3b; D63.1 Anemia in chronic kidney disease; Z94.2 Lung transplant status
CPT/HCPCS: 36415; 80197; 83735; 84100; 85014; 85018; 87497; 96372; Q5106

== ENCOUNTER → 2024-10-01 09:22 | Outpatient (CLI) | payer MEDICARE, SELFPAY ==
[2023-12-10 16:27] VITALS: BMI 27.9
[2024-09-11 04:32] VITALS: BMI 25.4
[2024-10-01 09:42] VITALS: BP 88/47; PULSE 77; RESP 16; TEMP 36.9; O2SAT 97
[2024-10-01 09:45] LABS: Hematocrit 25.1 % (41-53); Hemoglobin 8.2 g/dL (13.5-17.5)
[2024-10-01] MEDS: EPOETIN ALFA-EPBX 20,000 UNIT/2 ML VIAL 20000 UNIT SUBCUT (10:13)
--- NOTE | 2024-10-01 10:13 | PC.NURSE ---
BP 88/47: patient in for retacrit today. States he has not been experiencing dizziness with standing and is drinking plenty of water. This nurse spoke with Bryan at [facility] to make him aware. Per Bryan BP this am was 135/66 and patient's BP does go up and down. Bryan stated that the [facility] physician will be there today and he will inform the
== END ==
LOC: ONC 09:22
PROVIDERS: Family Provider Family Medicine; PCP Family Medicine; Referring Provider Internal Medicine Nephrology; Visit Provider Internal Medicine Nephrology
DX: N18.32 Chronic kidney disease, stage 3b (principal); D63.1 Anemia in chronic kidney disease
CPT/HCPCS: 85014; 85018; 96372; Q5106

== ENCOUNTER → 2024-10-15 13:49 | Outpatient (CLI) | payer MEDICARE, SELFPAY ==
[2023-12-10 16:27] VITALS: BMI 27.9
[2024-09-11 04:32] VITALS: BMI 25.4
[2024-10-15 14:25] VITALS: BP 115/60; PULSE 83; RESP 18; TEMP 36.4; O2SAT 97
[2024-10-15 14:30] LABS: Hematocrit 25.4 % (41-53); Hemoglobin 8.4 g/dL (13.5-17.5)
[2024-10-15] MEDS: EPOETIN ALFA-EPBX 20,000 UNIT/ML VIAL 20000 UNIT SUBCUT (14:53)
[2024-10-15 15:29] LABS: BUN Creatinine Ratio 20.1 (6-22); Blood Urea Nitrogen 38 mg/dL (9-20); Calcium 8.2 mg/dL (8.4-10.2); Carbon Dioxide 18 mmol/L (22-32); Chloride 110 mmol/L (98-107); Estimated Glomerular Filt Rate 34 mL/min (>60); Glucose 160 mg/dL (80-110); HEMOLYSIS < 15 (0-50); Potassium 4.5 mmol/L (3.4-5.1); Sodium 134 mmol/L (137-145)
== END ==
LOC: ONC 13:50
PROVIDERS: Family Provider Family Medicine; PCP Family Medicine; Referring Provider Internal Medicine Nephrology; Visit Provider Internal Medicine Nephrology
DX: D63.1 Anemia in chronic kidney disease (principal); N18.32 Chronic kidney disease, stage 3b
CPT/HCPCS: 36415; 80048; 85014; 85018; 96372; Q5106

== ENCOUNTER → 2024-10-29 09:20 | Outpatient (CLI) | payer MEDICARE, SELFPAY ==
[2023-12-10 16:27] VITALS: BMI 27.9
[2024-09-11 04:32] VITALS: BMI 25.4
[2024-10-29 09:36] VITALS: BP 99/56; PULSE 72; RESP 16; TEMP 36.6; O2SAT 96
--- NOTE | 2024-10-29 09:52 | PC.NURSE ---
Patient here for Retacrit from Dr Gonzalez; HGB & HCT drawn for orders/protocol. Patient has orders in chart from Dr Angel TSH w/Reflex to T4 - those labs drawn as well and sent to lab. Called [address] [place] [address] provider line #[phone] and notified Triage nurse for [address] [place] [address] Dr Angel office that TSH labs were drawn and would be available so they can put notification in chart for provider.
[2024-10-29 10:02] LABS: Hematocrit 27.6 % (41-53)
[2024-10-29] MEDS: EPOETIN ALFA-EPBX 20,000 UNIT/ML VIAL 20000 UNIT SUBCUT (10:18)
[2024-10-29 11:03] LABS: TSH w/ Reflex to FT4 1.87 uIU/mL (0.47-4.68)
== END ==
LOC: ONC 09:20
PROVIDERS: Family Provider Family Medicine; PCP Family Medicine; Referring Provider Internal Medicine Nephrology; Visit Provider Internal Medicine Nephrology
DX: E03.9 Hypothyroidism, unspecified (principal); D63.1 Anemia in chronic kidney disease; N18.32 Chronic kidney disease, stage 3b
CPT/HCPCS: 84443; 85014; 85018; 96372; Q5106

== ENCOUNTER → 2024-11-12 09:19 | Outpatient (CLI) | payer MEDICARE, SELFPAY ==
[2024-09-11 04:32] VITALS: BMI 25.4
[2024-11-12 09:55] VITALS: BP 127/69; PULSE 81; RESP 18; TEMP 37; O2SAT 97
[2024-11-12 09:55] LABS: Hematocrit 27.2 % (41-53)
[2024-11-12 10:02] LABS: HEMOLYSIS < 15 (0-50); Iron 78 ug/dL (49-181)
[2024-11-12 10:03] LABS: BUN Creatinine Ratio 26.2 (6-22); Blood Urea Nitrogen 44 mg/dL (9-20); Calcium 8.6 mg/dL (8.4-10.2); Carbon Dioxide 17 mmol/L (22-32); Chloride 114 mmol/L (98-107); Estimated Glomerular Filt Rate 39 mL/min (>60); Glucose 107 mg/dL (80-110); HEMOLYSIS < 15 (0-50); Potassium 4.1 mmol/L (3.4-5.1); Sodium 139 mmol/L (137-145)
[2024-11-12 10:12] LABS: Percent Iron Saturation 29 % (20-50); Total Iron Binding Capacity 266 ug/dL (261-462); Transferrin 194 mg/dL (206-381)
[2024-11-12] MEDS: EPOETIN ALFA-EPBX 20,000 UNIT/ML VIAL 20000 UNIT SUBCUT (10:22)
[2024-11-12 10:40] LABS: Ferritin 61 ng/mL (18-464)
== END ==
LOC: ONC 09:20
PROVIDERS: Family Provider Family Medicine; PCP Family Medicine; Referring Provider Internal Medicine Nephrology; Visit Provider Internal Medicine Nephrology
DX: N18.32 Chronic kidney disease, stage 3b (principal); D63.1 Anemia in chronic kidney disease
CPT/HCPCS: 36415; 80048; 82728; 83540; 83550; 85014; 85018; 96372; Q5106

== ENCOUNTER → 2024-11-17 17:23 | Outpatient (ROUT) | payer MEDICARE, SELFPAY ==
[2024-09-11 04:32] VITALS: BMI 25.4
== END ==
PROVIDERS: Family Provider Family Medicine; PCP Family Medicine; Visit Provider Dermatology
DX: C44.42 Squamous cell carcinoma of skin of scalp and neck (principal)
CPT/HCPCS: 87070; 87075; 87077; 87205

== ENCOUNTER → 2024-11-26 10:44 | Outpatient (CLI) | payer MEDICARE, SELFPAY ==
[2024-09-11 04:32] VITALS: BMI 25.4
[2024-11-26 10:58] VITALS: BP 117/63; PULSE 74; RESP 18; TEMP 36.6; O2SAT 98
[2024-11-26 11:15] LABS: Hematocrit 25.6 % (41-53); Hemoglobin 8.5 g/dL (13.5-17.5)
[2024-11-26] MEDS: EPOETIN ALFA-EPBX 20,000 UNIT/ML VIAL 20000 UNIT SUBCUT (11:28)
== END ==
PROVIDERS: Family Provider Family Medicine; PCP Family Medicine; Referring Provider Internal Medicine Nephrology; Visit Provider Internal Medicine Nephrology
DX: N18.32 Chronic kidney disease, stage 3b (principal); D63.1 Anemia in chronic kidney disease
CPT/HCPCS: 36415; 85014; 85018; 96372; Q5106

== ENCOUNTER → 2024-12-10 10:51 | Outpatient (CLI) | payer MEDICARE, SELFPAY ==
[2024-09-11 04:32] VITALS: BMI 25.4
[2024-12-10 11:08] VITALS: BP 112/66; PULSE 89; RESP 16; TEMP 37.3; O2SAT 96
[2024-12-10 11:11] LABS: Hematocrit 28.6 % (41-53); Hemoglobin 9.5 g/dL (13.5-17.5)
[2024-12-10] MEDS: EPOETIN ALFA-EPBX 20,000 UNIT/2 ML VIAL 20000 UNIT SUBCUT (11:34)
== END ==
PROVIDERS: Family Provider Family Medicine; PCP Family Medicine; Referring Provider Internal Medicine Nephrology; Visit Provider Internal Medicine Nephrology
DX: N18.32 Chronic kidney disease, stage 3b (principal); D63.1 Anemia in chronic kidney disease
CPT/HCPCS: 85014; 85018; 96372; Q5106

== ENCOUNTER → 2024-12-24 07:56 | Outpatient (CLI) | payer MEDICARE, SELFPAY ==
[2024-09-11 04:32] VITALS: BMI 25.4
[2024-12-24 09:29] VITALS: BP 104/54; PULSE 74; RESP 18; TEMP 36.4; O2SAT 97
[2024-12-24 09:46] LABS: Hematocrit 26.9 % (41-53); Hemoglobin 8.9 g/dL (13.5-17.5)
[2024-12-24 09:55] LABS: BUN Creatinine Ratio 18.9 (6-22); Blood Urea Nitrogen 42 mg/dL (9-20); Calcium 8.3 mg/dL (8.4-10.2); Carbon Dioxide 21 mmol/L (22-32); Chloride 108 mmol/L (98-107); Estimated Glomerular Filt Rate 28 mL/min (>60); Glucose 103 mg/dL (70-99); HEMOLYSIS < 15 (0-50); Potassium 4.7 mmol/L (3.4-5.1); Sodium 136 mmol/L (137-145)
[2024-12-24] MEDS: EPOETIN ALFA-EPBX 20,000 UNIT/2 ML VIAL 20000 UNIT SUBCUT (10:08)
== END ==
PROVIDERS: Family Provider Family Medicine; PCP Family Medicine; Referring Provider Internal Medicine Nephrology; Visit Provider Internal Medicine Nephrology
DX: N18.32 Chronic kidney disease, stage 3b (principal); D63.1 Anemia in chronic kidney disease
CPT/HCPCS: 36415; 80048; 85014; 85018; 96372; Q5106

== ENCOUNTER → 2025-01-01 18:12 | Outpatient (ROUT) | payer MEDICARE, SELFPAY ==
[2024-09-11 04:32] VITALS: BMI 25.4
== END ==
LOC: LAB 18:13
PROVIDERS: Family Provider Family Medicine; PCP Family Medicine; Visit Provider Dermatology
DX: L08.9 Local infection of the skin and subcutaneous tissue, unspecified (principal)
CPT/HCPCS: 87070; 87075; 87205

== ENCOUNTER → 2025-01-07 09:13 | Outpatient (CLI) | payer MEDICARE, SELFPAY ==
[2024-09-11 04:32] VITALS: BMI 25.4
[2025-01-07 09:43] LABS: Hematocrit 27.5 % (41-53); Hemoglobin 8.9 g/dL (13.5-17.5)
[2025-01-07 09:57] VITALS: BP 110/64; PULSE 80; RESP 16; TEMP 36.5; O2SAT 97
[2025-01-07] MEDS: EPOETIN ALFA-EPBX 20,000 UNIT/2 ML VIAL 20000 UNIT SUBCUT (10:07)
== END ==
LOC: ONC 09:13
PROVIDERS: Family Provider Family Medicine; PCP Family Medicine; Referring Provider Internal Medicine Nephrology; Visit Provider Internal Medicine Nephrology
DX: N18.32 Chronic kidney disease, stage 3b (principal); D63.1 Anemia in chronic kidney disease
CPT/HCPCS: 85014; 85018; 96372; Q5106

== ENCOUNTER → 2025-01-22 09:21 | Outpatient (CLI) | payer MEDICARE, SELFPAY ==
[2024-09-11 04:32] VITALS: BMI 25.4
[2025-01-22 09:58] LABS: Hematocrit 24.4 % (41-53); Hemoglobin 8.1 g/dL (13.5-17.5)
[2025-01-22 10:04] LABS: Add Manual Diff / Slide Review NO; Basophils Absolute Auto 100 /uL (0-100); Basophils Percent Auto 0.8 % (0-2); Eosinophils Absolute Auto 0 /uL (0-450); Eosinophils Percent Auto 0.6 % (2-4); Hematocrit 24.5 % (41-53); Hemoglobin 8.2 g/dL (13.5-17.5); Lymphocytes Absolute Auto 2000 /uL (1100-4500); Lymphocytes Percent Auto 29.2 % (25-40); Mean Corpuscular HGB Conc 33.5 % (30-36); Mean Corpuscular Hemoglobin 33.4 PG (26-34); Mean Corpuscular Volume 99.8 fL (80-100); Monocytes Absolute Auto 600 /uL (0-900); Neutrophils Absolute Auto 4200 /uL (1500-7000); Neutrophils Percent Auto 60.4 % (50-75); Platelet Count 169 X10^3/uL (150-400); Red Blood Cell Count 2.45 X10^6/uL (4.5-5.9); Red Cell Distribution Width 16.7 % (11.6-14.8)
[2025-01-22 10:18] VITALS: BP 108/64; PULSE 77; RESP 16; TEMP 36.4; O2SAT 99
[2025-01-22 10:21] LABS: Alanine Aminotransferase 20 IU/L (<50); Albumin 3.1 g/dL (3.5-5.0); Albumin Globulin Ratio 1.1 (1.0-2.8); Alkaline Phosphatase 97 U/L (38-126); Aspartate Aminotransferase 27 IU/L (17-59); BUN Creatinine Ratio 18.8 (6-22); BUN Creatinine Ratio 19.2 (6-22); Bilirubin Total 0.3 mg/dL (0.2-1.3); Blood Urea Nitrogen 42 mg/dL (9-20); Calcium 8.6 mg/dL (8.4-10.2); Carbon Dioxide 21 mmol/L (22-32); Chloride 107 mmol/L (98-107); Chloride 108 mmol/L (98-107); Estimated Glomerular Filt Rate 28 mL/min (>60); Estimated Glomerular Filt Rate 29 mL/min (>60); Globulin 2.7 g/dL (1.7-4.1); Glucose 103 mg/dL (70-99); Glucose 104 mg/dL (70-99); HEMOLYSIS < 15 (0-50); Magnesium 2.1 mg/dL (1.6-2.3); Phosphorous 3.9 mg/dL (2.3-3.7); Potassium 4.7 mmol/L (3.4-5.1); Potassium 4.8 mmol/L (3.4-5.1); Sodium 135 mmol/L (137-145); Total Protein 5.8 g/dL (6.3-8.2)
[2025-01-22] MEDS: EPOETIN ALFA-EPBX 20,000 UNIT/2 ML VIAL 20000 UNIT SUBCUT (10:41)
[2025-01-23 03:36] LABS: Tacrolimus 2.9 ng/mL (5.0-20.0)
== END ==
PROVIDERS: Family Provider Family Medicine; PCP Family Medicine; Referring Provider Internal Medicine Nephrology; Visit Provider Internal Medicine Nephrology
DX: E83.42 Hypomagnesemia (principal); Z94.2 Lung transplant status
CPT/HCPCS: 80048; 80053; 80197; 83735; 84100; 85014; 85018; 85025; 87497; 96372; Q5106

== ENCOUNTER → 2025-02-04 10:02 | Outpatient (CLI) | payer MEDICARE, SELFPAY ==
[2024-09-11 04:32] VITALS: BMI 25.4
[2025-02-04 10:33] VITALS: BP 128/64; PULSE 73; RESP 18; TEMP 36.3; O2SAT 99
[2025-02-04 10:33] LABS: Hematocrit 23.3 % (41-53); Hemoglobin 7.6 g/dL (13.5-17.5)
[2025-02-04 10:42] LABS: HEMOLYSIS < 15 (0-50); Iron 74 ug/dL (49-181)
[2025-02-04 10:52] LABS: Percent Iron Saturation 23 % (20-50); Total Iron Binding Capacity 326 ug/dL (261-462); Transferrin 245 mg/dL (206-381)
[2025-02-04] MEDS: EPOETIN ALFA-EPBX 20,000 UNIT/2 ML VIAL 20000 UNIT SUBCUT (11:07)
[2025-02-04 11:21] LABS: Ferritin 26 ng/mL (18-464)
--- NOTE | 2025-02-05 08:41 | INF.NOTE ---
Called Dr. Gonzalez's office to confirm they received patients labs and ask the physician if he would like to make any changes to order. Pt's hemoglobin went from 8.2 to 7.6. Office staff stated she would pass on the message and get back to us after checking with Dr. Gonzalez.
== END ==
PROVIDERS: Family Provider Family Medicine; PCP Family Medicine; Referring Provider Internal Medicine Nephrology; Visit Provider Internal Medicine Nephrology
DX: N18.32 Chronic kidney disease, stage 3b (principal); D63.1 Anemia in chronic kidney disease
CPT/HCPCS: 36415; 82728; 83540; 83550; 85014; 85018; 96372; Q5106

== ENCOUNTER → 2025-02-18 09:25 | Outpatient (CLI) | payer MEDICARE, SELFPAY ==
[2024-09-11 04:32] VITALS: BMI 25.4
[2025-02-18 09:40] VITALS: BP 112/53; PULSE 79; RESP 16; TEMP 36.4; O2SAT 97
[2025-02-18 09:41] LABS: Hematocrit 22.2 % (41-53); Hemoglobin 7.3 g/dL (13.5-17.5)
[2025-02-18 09:52] LABS: BUN Creatinine Ratio 24.9 (6-22); Blood Urea Nitrogen 47 mg/dL (9-20); Calcium 8.2 mg/dL (8.4-10.2); Carbon Dioxide 19 mmol/L (22-32); Chloride 106 mmol/L (98-107); Estimated Glomerular Filt Rate 34 mL/min (>60); Glucose 93 mg/dL (70-99); HEMOLYSIS < 15 (0-50); Potassium 4.5 mmol/L (3.4-5.1); Sodium 132 mmol/L (137-145)
[2025-02-18] MEDS: EPOETIN ALFA EPBX 30000 UNIT SUBCUT (10:12)
== END ==
LOC: ONC 09:25
PROVIDERS: Family Provider Family Medicine; PCP Family Medicine; Referring Provider Internal Medicine Nephrology; Visit Provider Internal Medicine Nephrology
DX: N18.32 Chronic kidney disease, stage 3b (principal); D63.1 Anemia in chronic kidney disease
CPT/HCPCS: 36415; 80048; 85014; 85018; 96372; Q5106

== ENCOUNTER → 2025-03-04 09:22 | Outpatient (CLI) | payer MEDICARE, SELFPAY ==
[2024-09-11 04:32] VITALS: BMI 25.4
[2025-03-04 09:45] VITALS: BP 114/60; PULSE 62; RESP 16; TEMP 36.4; O2SAT 98
[2025-03-04 09:45] LABS: Hematocrit 21.3 % (41-53); Hemoglobin 7.0 g/dL (13.5-17.5)
--- NOTE | 2025-03-04 10:07 | INF.NOTE ---
Patient here for EPO, Labs drawn, see [employer] labs for full results and trends. HGB/HCT decreased again 7.0/21.3 and Ferritin from 02/04 is lower at 26. Called Provider office Dr Carlos [facility] and spoke with SHAUNNA De to notify of continued lab results, review EPO dose of 30,000 from updated orders on 02/04/25, and lab schedule. Will still proceed with EPO dose today but wanted provider aware of trends so if he wishes to make changes to order in future or has questions or needs clarification or results they can call us or fax orders. # [phone]
[2025-03-04] MEDS: EPOETIN ALFA EPBX 30000 UNIT SUBCUT (10:32)
== END ==
LOC: ONC 09:22
PROVIDERS: Family Provider Family Medicine; PCP Family Medicine; Referring Provider Internal Medicine Nephrology; Visit Provider Internal Medicine Nephrology
DX: N18.32 Chronic kidney disease, stage 3b (principal); D63.1 Anemia in chronic kidney disease
CPT/HCPCS: 36415; 85014; 85018; 96372; Q5106

== ENCOUNTER → 2025-03-11 09:21 | Outpatient (CLI) | payer MEDICARE, SELFPAY ==
[2024-09-11 04:32] VITALS: BMI 25.4
[2025-03-11 09:38] LABS: Hemoglobin 7.4 g/dL (13.5-17.5)
[2025-03-11 09:40] VITALS: BP 96/49; PULSE 77; RESP 16; TEMP 36.5; O2SAT 98
[2025-03-11] MEDS: EPOETIN ALFA EPBX 30000 UNIT SUBCUT (10:16)
--- NOTE | 2025-03-12 14:41 | PC.NURSE ---
Pt states his standing lab orders for Ana Maria Mullins MD of [facility] , phone [phone] drawn at the facility he resides. No need to request renew orders at this time.
[2025-03-18 09:42] LABS: Hematocrit 21.9 % (41-53); Hemoglobin 7.1 g/dL (13.5-17.5)
[2025-03-18 09:52] LABS: Blood Urea Nitrogen 44 mg/dL (9-20); Calcium 8.3 mg/dL (8.4-10.2); Carbon Dioxide 21 mmol/L (22-32); Chloride 106 mmol/L (98-107); Estimated Glomerular Filt Rate 35 mL/min (>60); Glucose 118 mg/dL (70-99); HEMOLYSIS < 15 (0-50); Potassium 4.8 mmol/L (3.4-5.1); Sodium 134 mmol/L (137-145)
== END ==
PROVIDERS: Family Provider Family Medicine; PCP Family Medicine; Referring Provider Internal Medicine Nephrology; Visit Provider Internal Medicine Nephrology
DX: N18.32 Chronic kidney disease, stage 3b (principal); D63.1 Anemia in chronic kidney disease
CPT/HCPCS: 80048; 85014; 85018; 96372; Q5106

== ENCOUNTER → 2025-03-18 09:14 | Outpatient (CLI) | payer MEDICARE, SELFPAY ==
[2024-09-11 04:32] VITALS: BMI 25.4
[2025-03-18 09:39] VITALS: BP 109/58; PULSE 74; RESP 16; TEMP 37; O2SAT 97
[2025-03-18] MEDS: EPOETIN ALFA EPBX 30000 UNIT SUBCUT (09:57)
--- NOTE | 2025-03-30 11:08 | INF.NOTE ---
called Dr. Gonzalez's office to see if the new order can be changed from Sunday and Sunday for EPO to Sunday and as our clinic is not open on Fridays. No clinic staff were in on 03/30/25 , the entry level receptionist left a message form the clinic staff to call our clinic on 03/31/25.
== END ==
PROVIDERS: Family Provider Family Medicine; PCP Family Medicine; Referring Provider Internal Medicine Nephrology; Visit Provider Internal Medicine Nephrology
DX: N18.32 Chronic kidney disease, stage 3b (principal); D63.1 Anemia in chronic kidney disease
CPT/HCPCS: 36415; 96372; Q5106

== ENCOUNTER → 2025-03-25 09:13 | Outpatient (CLI) | payer MEDICARE, SELFPAY ==
[2024-09-11 04:32] VITALS: BMI 25.4
[2025-03-25 09:28] VITALS: BP 118/59; PULSE 73; RESP 16; TEMP 36.7; O2SAT 97
[2025-03-25 09:41] LABS: Hemoglobin 7.0 g/dL (13.5-17.5)
[2025-03-25] MEDS: EPOETIN ALFA EPBX 30000 UNIT SUBCUT (09:54)
== END ==
LOC: ONC 09:13
PROVIDERS: Family Provider Family Medicine; PCP Family Medicine; Referring Provider Internal Medicine Nephrology; Visit Provider Internal Medicine Nephrology
DX: N18.32 Chronic kidney disease, stage 3b (principal); D63.1 Anemia in chronic kidney disease
CPT/HCPCS: 36415; 85018; 96372; Q5106

== ENCOUNTER → 2025-03-31 09:15 | Outpatient (CLI) | payer MEDICARE, SELFPAY ==
[2024-09-11 04:32] VITALS: BMI 25.4
[2025-03-31 09:40] LABS: Hematocrit 21.2 % (41-53); Hemoglobin 7.0 g/dL (13.5-17.5)
[2025-03-31 10:03] VITALS: BP 100/52; PULSE 75; RESP 16; TEMP 36.7; O2SAT 97
[2025-03-31] MEDS: EPOETIN ALFA EPBX 30000 UNIT SUBCUT (10:14)
--- NOTE | 2025-03-31 14:02 | INF.NOTE ---
Spoke with Kenisha Zurita RN @ [facility] - Dr Lizzette Gonzalez got verbal order to update EPO dosing ok to come Sun & and verified labs, no longer needs weekly hemoglobin checked and add Q 4 weeks BMP. See scanned orders in chart. Patient ok to come for second dose this week on and next week to come Sunday & .
== END ==
LOC: ONC 09:15
PROVIDERS: Family Provider Family Medicine; PCP Family Medicine; Referring Provider Internal Medicine Nephrology; Visit Provider Internal Medicine Nephrology
DX: N18.32 Chronic kidney disease, stage 3b (principal); D63.1 Anemia in chronic kidney disease
CPT/HCPCS: 85014; 85018; 96372; Q5106

== ENCOUNTER → 2025-04-02 09:17 | Outpatient (CLI) | payer MEDICARE, SELFPAY ==
[2024-09-11 04:32] VITALS: BMI 25.4
[2025-04-02 09:25] VITALS: BP 125/70; PULSE 84; RESP 18; TEMP 36.6; O2SAT 99
[2025-04-02] MEDS: EPOETIN ALFA-EPBX 20,000 UNIT/2 ML VIAL 20000 UNIT SUBCUT (10:11)
== END ==
LOC: ONC 09:17
PROVIDERS: Family Provider Family Medicine; PCP Family Medicine; Referring Provider Internal Medicine Nephrology; Visit Provider Internal Medicine Nephrology
DX: N18.30 Chronic kidney disease, stage 3 unspecified (principal); D63.1 Anemia in chronic kidney disease
CPT/HCPCS: 96372; Q5106

== ENCOUNTER → 2025-04-06 09:17 | Outpatient (CLI) | payer MEDICARE, SELFPAY ==
[2024-09-11 04:32] VITALS: BMI 25.4
[2025-04-06 09:23] VITALS: BP 114/57; PULSE 74; RESP 16; TEMP 36.6; O2SAT 97
[2025-04-06] MEDS: EPOETIN ALFA-EPBX 20,000 UNIT/ML VIAL 20000 UNIT SUBCUT (09:32)
== END ==
PROVIDERS: Family Provider Family Medicine; PCP Family Medicine; Referring Provider Internal Medicine Nephrology; Visit Provider Internal Medicine Nephrology
DX: N18.30 Chronic kidney disease, stage 3 unspecified (principal); D63.1 Anemia in chronic kidney disease
CPT/HCPCS: 96372; Q5106

== ENCOUNTER → 2025-04-09 09:16 | Outpatient (CLI) | payer MEDICARE, SELFPAY ==
[2024-09-11 04:32] VITALS: BMI 25.4
[2025-04-09 09:26] VITALS: BP 119/55; PULSE 73; RESP 16; TEMP 36.3; O2SAT 98
[2025-04-09] MEDS: EPOETIN ALFA-EPBX 20,000 UNIT/ML VIAL 20000 UNIT SUBCUT (09:36)
== END ==
LOC: ONC 09:16
PROVIDERS: Family Provider Family Medicine; PCP Family Medicine; Referring Provider Internal Medicine Nephrology; Visit Provider Internal Medicine Nephrology
DX: N18.30 Chronic kidney disease, stage 3 unspecified (principal); D63.1 Anemia in chronic kidney disease
CPT/HCPCS: 96372; Q5106

== ENCOUNTER → 2025-04-13 09:20 | Outpatient (CLI) | payer MEDICARE, SELFPAY ==
[2024-09-11 04:32] VITALS: BMI 25.4
[2025-04-13 09:30] VITALS: BP 98/54; PULSE 75; RESP 18; TEMP 36.9; O2SAT 98
[2025-04-13 09:39] LABS: Hematocrit 22.0 % (41-53); Hemoglobin 7.0 g/dL (13.5-17.5)
[2025-04-13 09:48] LABS: Blood Urea Nitrogen 51 mg/dL (9-20); Calcium 8.3 mg/dL (8.4-10.2); Carbon Dioxide 21 mmol/L (22-32); Chloride 111 mmol/L (98-107); Estimated Glomerular Filt Rate 34 mL/min (>60); Glucose 97 mg/dL (70-99); HEMOLYSIS < 15 (0-50); Potassium 4.4 mmol/L (3.4-5.1); Sodium 138 mmol/L (137-145)
[2025-04-13] MEDS: EPOETIN ALFA-EPBX 20,000 UNIT/ML VIAL 20000 UNIT SUBCUT (10:10)
--- NOTE | 2025-04-13 11:45 | PC.NURSE ---
spoke with RICHY @ Dr. Gonzalez office, let them know pt reported fatigue, relayed vitals/labs. RICHY will relay message to provider. No new orders at this time.
== END ==
LOC: ONC 09:48
PROVIDERS: Family Provider Family Medicine; PCP Family Medicine; Referring Provider Internal Medicine Nephrology; Visit Provider Internal Medicine Nephrology
DX: N18.30 Chronic kidney disease, stage 3 unspecified (principal); D63.1 Anemia in chronic kidney disease
CPT/HCPCS: 80048; 85014; 85018; 96372; Q5106

== ENCOUNTER → 2025-05-05 09:19 | Outpatient (CLI) | payer MEDICARE, SELFPAY ==
[2024-09-11 04:32] VITALS: BMI 25.4
[2025-05-05 09:48] LABS: Hematocrit 29.0 % (41-53); Hemoglobin 9.3 g/dL (13.5-17.5)
[2025-05-05 09:56] VITALS: BP 114/59; PULSE 74; RESP 16; TEMP 36.6; O2SAT 98
[2025-05-05 09:59] LABS: Blood Urea Nitrogen 47 mg/dL (9-20); Calcium 8.3 mg/dL (8.4-10.2); Carbon Dioxide 22 mmol/L (22-32); Chloride 106 mmol/L (98-107); Estimated Glomerular Filt Rate 35 mL/min (>60); Glucose 114 mg/dL (70-99); HEMOLYSIS < 15 (0-50); Potassium 4.6 mmol/L (3.4-5.1); Sodium 134 mmol/L (137-145)
[2025-05-05 10:00] LABS: HEMOLYSIS < 15 (0-50); Iron 46 ug/dL (49-181)
[2025-05-05 10:10] LABS: Percent Iron Saturation 14 % (20-50); Total Iron Binding Capacity 339 ug/dL (261-462); Transferrin 263 mg/dL (206-381)
[2025-05-05] MEDS: EPOETIN ALFA-EPBX 20,000 UNIT/2 ML VIAL 20000 UNIT SUBCUT (10:19)
[2025-05-05 10:33] LABS: Ferritin 17 ng/mL (18-464)
== END ==
PROVIDERS: Family Provider Family Medicine; PCP Family Medicine; Referring Provider Internal Medicine Nephrology; Visit Provider Internal Medicine Nephrology
DX: N18.32 Chronic kidney disease, stage 3b (principal); D63.1 Anemia in chronic kidney disease
CPT/HCPCS: 80048; 82728; 83540; 83550; 85014; 85018; 96372; Q5106

== ENCOUNTER → 2025-05-11 09:13 | Outpatient (CLI) | payer MEDICARE, SELFPAY ==
[2024-09-11 04:32] VITALS: BMI 25.4
[2025-05-11 09:25] VITALS: BP 104/57; PULSE 80; RESP 18; TEMP 36.6; O2SAT 98
[2025-05-11] MEDS: EPOETIN ALFA-EPBX 20,000 UNIT/2 ML VIAL 20000 UNIT SUBCUT (09:35)
== END ==
LOC: ONC 09:13
PROVIDERS: Family Provider Family Medicine; PCP Family Medicine; Referring Provider Internal Medicine Nephrology; Visit Provider Internal Medicine Nephrology
DX: N18.32 Chronic kidney disease, stage 3b (principal); D63.1 Anemia in chronic kidney disease
CPT/HCPCS: 96372; Q5106

== ENCOUNTER → 2025-05-14 09:17 | Outpatient (CLI) | payer MEDICARE, SELFPAY ==
[2024-09-11 04:32] VITALS: BMI 25.4
[2025-05-14] MEDS: EPOETIN ALFA-EPBX 20,000 UNIT/ML VIAL 20000 UNIT SUBCUT (09:53)
[2025-05-14 10:04] VITALS: BP 126/71; PULSE 81; RESP 16; TEMP 36.6; O2SAT 99
== END ==
LOC: ONC 09:17
PROVIDERS: Family Provider Family Medicine; PCP Family Medicine; Referring Provider Internal Medicine Nephrology; Visit Provider Internal Medicine Nephrology
DX: N18.32 Chronic kidney disease, stage 3b (principal); D63.1 Anemia in chronic kidney disease
CPT/HCPCS: 96372; Q5106

== ENCOUNTER → 2025-05-18 09:15 | Outpatient (CLI) | payer MEDICARE, SELFPAY ==
[2024-09-11 04:32] VITALS: BMI 25.4
[2025-05-18 09:38] LABS: Hematocrit 28.8 % (41-53); Hemoglobin 9.2 g/dL (13.5-17.5)
[2025-05-18 09:46] VITALS: BP 128/46; PULSE 82; RESP 16; TEMP 37.1; O2SAT 98
[2025-05-18] MEDS: EPOETIN ALFA-EPBX 20,000 UNIT/ML VIAL 20000 UNIT SUBCUT (10:02)
== END ==
LOC: ONC 09:15
PROVIDERS: Family Provider Family Medicine; PCP Family Medicine; Referring Provider Internal Medicine Nephrology; Visit Provider Internal Medicine Nephrology
DX: N18.32 Chronic kidney disease, stage 3b (principal); D63.1 Anemia in chronic kidney disease
CPT/HCPCS: 85014; 85018; 96372; Q5106

== ENCOUNTER → 2025-05-21 09:14 | Outpatient (CLI) | payer MEDICARE, SELFPAY ==
[2024-09-11 04:32] VITALS: BMI 25.4
[2025-05-21 09:26] VITALS: BP 135/71; PULSE 80; RESP 18; TEMP 36.5; O2SAT 98
[2025-05-21] MEDS: EPOETIN ALFA-EPBX 20,000 UNIT/ML VIAL 20000 UNIT SUBCUT (09:44)
== END ==
LOC: ONC 09:14
PROVIDERS: Family Provider Family Medicine; PCP Family Medicine; Referring Provider Internal Medicine Nephrology; Visit Provider Internal Medicine Nephrology
DX: N18.32 Chronic kidney disease, stage 3b (principal); D63.1 Anemia in chronic kidney disease
CPT/HCPCS: 96372; Q5106

== ENCOUNTER → 2025-05-25 09:08 | Outpatient (CLI) | payer MEDICARE, SELFPAY ==
[2024-09-11 04:32] VITALS: BMI 25.4
[2025-05-25 09:20] VITALS: BP 86/41; PULSE 105; RESP 20; TEMP 36.8
[2025-05-25 09:28] VITALS: BP 78/34; PULSE 105; O2SAT 95
--- NOTE | 2025-05-25 09:52 | PC.NURSE ---
Pt presented to infusion clinic for EPO injection. Pt stated I am in horrible pain, and my neck hurts, Vitals, see flowsheet. Pt reports feeling weak, tired, unable to transfer from wheelchair as he normally does, unable to keep feet up during transport. Upon assessment pt apears pale, increased weakness compared to baseline. Transfer pt to ED for work up per Emilia Feliciano RN. Pt agreed to transfer. Phoned [facility], , updated Bryan on pt condition. Bryan will pass message to pt Shannon MAZA. TANGELA cao/ Dieter Hughes [phone], pt /emergency contact to return call to infusion clinic.
--- NOTE | 2025-05-25 16:00 | PC.NURSE ---
Left message with Coty at office, advising pt did not have EPO inj today, was transferred to ED and admitted. ED provider note Fax to [phone], fax number provided by Coty.
== END ==
LOC: ONC 09:08
PROVIDERS: Family Provider Family Medicine; PCP Family Medicine; Referring Provider Internal Medicine Nephrology; Visit Provider Internal Medicine Nephrology
DX: N18.32 Chronic kidney disease, stage 3b (principal); D63.1 Anemia in chronic kidney disease

== ENCOUNTER 2025-05-25 09:37 | Inpatient (IN) | payer MEDICARE, SELFPAY ==
[2024-09-11 04:32] VITALS: BMI 25.4
[2025-05-25] VITALS (58 sets, daily range): BP systolic 62–118; BP diastolic 36–64; PULSE 97–111; RESP 15–33; TEMP 36.4–36.9; O2SAT 90–100; BMI 27.1
--- NOTE | 2025-05-25 09:49 | DI.RAD.S_ITS ---
PROCEDURE: XR CHEST 1V INDICATIONS: hypotension TECHNIQUE: One view of the chest was acquired. COMPARISON: [facility], CR, XR CHEST 1V, 04/17/2025, 23:38. FINDINGS: Surgical changes and devices: Sternotomy hardware. Upper abdominal clips. Mediastinal clips. Lungs and pleura: Lungs are clear. No pleural effusions or pneumothorax. Mediastinum: Mediastinal contours appear normal. Heart size is enlarged. Bones and chest wall: No suspicious bony lesions. Overlying soft tissues appear unremarkable. IMPRESSION: Cardiomegaly, as before. No evidence acute pulmonary process. Dictated by: Horace Patel M.D. on 05/25/2025 at 10:08 Approved by: Horace Patel M.D. on 05/25/2025 at 10:09
--- NOTE | 2025-05-25 09:51 | ED.GENADULT ---
HPI - General Adult General Chief complaint: Weakness Stated complaint: low Blood pressure, sent from ONC Time Seen by Provider: 05/25/25 09:49 Source: patient, RN notes reviewed and old records reviewed Mode of arrival: Wheelchair Limitations: no limitations History of Present Illness HPI narrative: 84-year-old male history of prior lung transplant for fibrosis, hypothyroidism, CKD stage 4, hypertension, dyslipidemia, CAD, prior GI bleed comes to emergency department from Oncology for hypotension with a reported systolic in the 70s. Patient is able to answer questions he denies feeling lightheaded, denies chest pain or shortness of breath. Denies nausea or vomiting. Denies abdominal back or flank pain. Denies GI or urinary symptoms. He notes pain in his right neck. Has a lidocaine patch in place. Notes increased pain with movement. Patient was and Oncology to get an ETO transfusion for anemia. Appears he has had prior GI bleeds and likely blood transfusions in the past. Patient notes he is DNR/DNI but it is open to blood transfusions if required. Related Data Home Medications ?Medication ?Instructions ?Recorded ?Confirmed azithromycin 250 mg tablet 500 mg PO DAILY 08/28/24 09/11/24 itraconazole 100 mg capsule 100 mg PO BID 08/28/24 09/11/24 prednisone 5 mg tablet 5 mg PO DAILY 08/28/24 09/11/24 sitagliptin phosphate 50 mg tablet 50 mg PO DAILY 08/28/24 09/11/24 (Januvia) sulfamethoxazole 800 0.5 tab PO 3XW 08/28/24 09/11/24 mg-trimethoprim 160 mg tablet tacrolimus 1 mg capsule, 1 mg PO Q12H 08/28/24 09/11/24 immediate-release tamsulosin 0.4 mg capsule 0.4 mg PO QPM 08/28/24 09/11/24 valganciclovir 450 mg tablet 450 mg PO 3XW 08/28/24 09/11/24 Previous Rx's ?Medication ?Instructions ?Recorded levothyroxine 150 mcg tablet 150 mcg PO DAILY #90 tabs 09/04/24 amoxicillin 875 mg-potassium 1 tab PO BID #10 tabs 09/14/24 clavulanate 125 mg tablet oseltamivir 30 mg capsule (Tamiflu) 30 mg PO BID #10 caps 09/14/24 Allergies Allergy/AdvReac Type Severity Reaction Status Date / Time No Known Drug Allergies Allergy Verified 05/25/25 09:52 Review of Systems Review of Systems ROS Unobtainable: All systems reviewed & are unremarkable except as noted in HPI and below Patient History Medical History 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 COVID-19 Aortic stenosis Encounter for subsequent annual wellness visit (AWV) in Medicare patient Macrocytosis CKD (chronic kidney disease) stage 3, GFR 30-59 ml/min Chronic low back pain Hearing impaired IPF (idiopathic pulmonary fibrosis) Hypothyroid Diabetes Hyperlipidemia Hypertension Coronary artery disease Anemia Tubular adenoma of colon Surgical History Status post lung transplantation Hx of cholecystectomy Hx of bilateral cataract extraction H/O lung transplant (2009) Family History Father Patient denies significant medical history Mother Patient denies significant medical history Social History marital status: household members: spouse alcohol intake: former alcohol intake frequency: holidays/special occasions only Exam Narrative Exam Narrative: GEN: Elderly appearing male, alert and oriented, patient appears to be in moderate to severe distress. Pale. HEENT: Atraumatic, pupils are equal round reactive to light, extraocular movements are intact, nares are clear, TMs are clear with no fluid, there is conjunctival pallor. Throat is clear without any exudates, erythema, tonsillar enlargement or uvular deviation, patient has no cervical vertebral tenderness, has a normal range of motion, does have some increased pain when his shoulder is rotated at the neck. HEART: Regular rate and rhythm without murmur, clicks, rubs. Pulses are equal in upper and lower extremities LUNGS:Lungs clear to auscultation, no wheezes, rales, crackles, chest moves symmetrically ABD:bowel sounds normal, soft, non-tender, no guarding, rebound, rigidity, no masses noted, no hepatosplenomegaly :No CVA tenderness MSCL: Non-tender, no muscle atrophy, muscles strength 5/5 upper and lower extremities, full range of motion. Patient is able to stand and pivot but with nursing assistance to the bed. NEURO:CN 2-12 intact, sensation normal. Initial Vital Signs Initial Vital Signs: Vital Signs Temperature 98.4 F 05/25/25 09:48 Pulse Rate 104 H 05/25/25 09:48 Respiratory Rate 18 05/25/25 09:48 Blood Pressure 72/39 L 05/25/25 09:48 Pulse Oximetry 95 05/25/25 09:48 Oxygen Delivery Method Room Air 05/25/25 09:48 Course Orders Ordered: ED Orders 05/25/25 09:49 XR chest 1V Stat EKG-12 Lead Stat 05/25/25 09:55 Blood Culture Stat Complete Blood Count AUTO DIFF Stat Comprehensive Metabolic Panel Stat Lactate (Lactic Acid) Stat Lipase Stat NT-proBNP (BNP-Adult 18+) Stat Procalcitonin Stat Troponin & CK Cardiac Panel Stat 05/25/25 09:57 Type and Screen Stat 05/25/25 10:32 CT abdomen pelvis w con Stat CT angio chest PE protocol Stat 05/25/25 12:48 Urinalysis and Microscopic Stat Acetaminophen (Acetaminophen 325 Mg Tablet) 650 mg PO Q6H PRN PRN Reason: Fever/Mild Pain (1-3) Heparin Sodium (Porcine) (Heparin 5,000 Unit/Ml Vial) 5,000 unit SUBCUT BID HARI Sodium Chloride (Normal Saline 0.9%) 1,000 mls @ 100 mls/hr IV CONT HARI Naloxone HCl (Naloxone 0.4 Mg/Ml Vial) 0.2 mg IV Q2MIN PRN PRN Reason: Opiate Reversal Discontinued Medications Acetaminophen (Acetaminophen 325 Mg Tablet) 650 mg PO NOW ONE Stop: 05/25/25 11:44 Last Admin: 05/25/25 12:01 Dose: 650 mg Documented By: MATTHIAS Sodium Chloride (Normal Saline 0.9%) 1,000 mls @ 1,000 mls/hr IV BOLUS ONE Stop: 05/25/25 10:48 Last Infusion: 05/25/25 11:03 Dose: Infused Documented By: Admin: 05/25/25 10:04 Dose: 1,000 mls/hr Documented By: MAKI Piperacillin Sod/Tazobactam (Sod 4.5 gm/ Sodium Chloride) 100 mls @ 200 mls/hr IV NOW ONE Stop: 05/25/25 10:32 Last Infusion: 05/25/25 11:44 Dose: Infused Documented By: Admin: 05/25/25 10:45 Dose: 200 mls/hr Documented By: MATTHIAS Sodium Chloride (Normal Saline 0.9%) 500 mls @ 1,000 mls/hr IV BOLUS ONE Stop: 05/25/25 12:13 Last Admin: 05/25/25 12:01 Dose: 1,000 mls/hr Documented By: MATTHIAS Metronidazole (Flagyl) 500 mg in 100 mls @ 100 mls/hr IV NOW ONE Stop: 05/25/25 13:28 Vital Signs Vital signs: Vital Signs - 8 hr 05/25/25 09:48 05/25/25 09:54 05/25/25 09:54 Temperature 98.4 F Pulse Rate 104 H 99 H Respiratory Rate 18 Blood Pressure 72/39 L 73/45 L Pulse Oximetry 95 90 L Oxygen Delivery Method Room Air Room Air Oxygen Flow Rate 05/25/25 10:00 05/25/25 10:00 05/25/25 10:05 Temperature Pulse Rate 101 H 100 H Respiratory Rate 19 17 Blood Pressure 72/43 L Pulse Oximetry 91 96 Oxygen Delivery Method Room Air Nasal Cannula Oxygen Flow Rate 2 05/25/25 10:05 05/25/25 10:10 05/25/25 10:10 Temperature Pulse Rate 97 H Respiratory Rate 24 Blood Pressure 91/53 L 89/50 L Pulse Oximetry 98 Oxygen Delivery Method Nasal Cannula Oxygen Flow Rate 2 05/25/25 10:12 05/25/25 10:12 05/25/25 10:15 Temperature Pulse Rate 99 H Respiratory Rate 23 Blood Pressure 84/51 L 94/53 L Pulse Oximetry 99 Oxygen Delivery Method Nasal Cannula Oxygen Flow Rate 2 05/25/25 10:15 05/25/25 10:20 05/25/25 10:20 Temperature Pulse Rate 100 H 99 H Respiratory Rate 24 Blood Pressure 99/56 L Pulse Oximetry 99 100 Oxygen Delivery Method Nasal Cannula Nasal Cannula Oxygen Flow Rate 2 2 05/25/25 10:25 05/25/25 10:25 05/25/25 10:30 Temperature Pulse Rate 101 H Respiratory Rate 24 Blood Pressure 104/59 L 103/57 L Pulse Oximetry 99 Oxygen Delivery Method Nasal Cannula Oxygen Flow Rate 2 05/25/25 10:30 05/25/25 10:35 05/25/25 10:35 Temperature Pulse Rate 100 H 100 H Respiratory Rate 24 24 Blood Pressure 106/58 L Pulse Oximetry Oxygen Delivery Method Oxygen Flow Rate 05/25/25 10:40 05/25/25 10:40 05/25/25 10:45 Temperature Pulse Rate 103 H Respiratory Rate 18 Blood Pressure 102/62 99/61 Pulse Oximetry Oxygen Delivery Method Oxygen Flow Rate 05/25/25 10:45 05/25/25 10:50 05/25/25 10:50 Temperature Pulse Rate 103 H 102 H Respiratory Rate 18 Blood Pressure 105/59 L Pulse Oximetry Oxygen Delivery Method Oxygen Flow Rate 05/25/25 10:55 05/25/25 10:55 05/25/25 11:20 Temperature Pulse Rate 103 H 104 H Respiratory Rate 22 24 Blood Pressure 104/59 L Pulse Oximetry 99 97 Oxygen Delivery Method Nasal Cannula Nasal Cannula Oxygen Flow Rate 2 2 05/25/25 11:22 05/25/25 11:22 05/25/25 11:25 Temperature Pulse Rate 103 H Respiratory Rate 19 Blood Pressure 94/53 L 92/51 L Pulse Oximetry 98 Oxygen Delivery Method Room Air Nasal Cannula Oxygen Flow Rate 2 05/25/25 11:25 05/25/25 11:30 05/25/25 11:30 Temperature Pulse Rate 102 H 101 H Respiratory Rate 17 16 Blood Pressure 93/55 L Pulse Oximetry 98 99 Oxygen Delivery Method Nasal Cannula Nasal Cannula Oxygen Flow Rate 1 1 05/25/25 11:35 05/25/25 11:35 05/25/25 11:40 Temperature Pulse Rate 102 H 104 H Respiratory Rate 15 23 Blood Pressure 84/51 L Pulse Oximetry 98 98 Oxygen Delivery Method Oxygen Flow Rate 05/25/25 11:41 05/25/25 11:41 05/25/25 11:45 Temperature Pulse Rate 104 H 104 H Respiratory Rate 16 19 Blood Pressure 82/53 L Pulse Oximetry 98 97 Oxygen Delivery Method Oxygen Flow Rate 05/25/25 11:50 05/25/25 11:55 05/25/25 11:56 Temperature 98.3 F Pulse Rate 103 H 104 H 103 H Respiratory Rate 24 22 Blood Pressure Pulse Oximetry 96 96 96 Oxygen Delivery Method Room Air Room Air Room Air Oxygen Flow Rate 05/25/25 11:56 05/25/25 12:00 05/25/25 12:00 Temperature Pulse Rate 102 H Respiratory Rate 24 Blood Pressure 85/51 L 85/51 L Pulse Oximetry 97 Oxygen Delivery Method Oxygen Flow Rate 05/25/25 12:05 05/25/25 12:05 05/25/25 12:10 Temperature Pulse Rate 101 H 102 H Respiratory Rate 25 H 31 H Blood Pressure 86/50 L Pulse Oximetry 96 95 Oxygen Delivery Method Oxygen Flow Rate 05/25/25 12:10 05/25/25 12:15 05/25/25 12:15 Temperature Pulse Rate 101 H Respiratory Rate 24 Blood Pressure 90/54 L 91/52 L Pulse Oximetry 94 Oxygen Delivery Method Room Air Oxygen Flow Rate 05/25/25 12:20 05/25/25 12:20 05/25/25 12:25 Temperature Pulse Rate 102 H 102 H Respiratory Rate 29 H 26 H Blood Pressure 89/50 L Pulse Oximetry 91 98 Oxygen Delivery Method Room Air Room Air Oxygen Flow Rate 2 05/25/25 12:25 Temperature Pulse Rate Respiratory Rate Blood Pressure 96/54 L Pulse Oximetry Oxygen Delivery Method Oxygen Flow Rate Medical Decision Making Lab Data 05/25/25 09:55 05/25/25 09:55 Labs: Lab Results 05/25/25 05/25/25 05/25/25 Range/Units 09:55 09:57 11:55 WBC 20.5 H (4.5-11.0) X10^3/uL RBC 3.44 L (4.5-5.9) X10^6/uL Hgb 9.5 L (13.5-17.5) g/dL Hct 30.3 L (41-53) % MCV 88.2 (80-100) fL MCH 27.6 (26-34) PG MCHC 31.3 (30-36) % RDW 18.9 H (11.6-14.8) % Plt Count 177 (150-400) X10^3/uL Neut % (Auto) 90.1 H (50-75) % Lymph % (Auto) 6.8 L (25-40) % [place] % (Auto) 2.4 L (3-14) % Eos % (Auto) 0.1 L (2-4) % Baso % (Auto) 0.6 (0-2) % Neut # (Auto) 71879 H (4357-3875) /uL Lymph # (Auto) 1400 (5952-2928) /uL [place] # (Auto) 500 (0-900) /uL Eos # (Auto) 0 (0-450) /uL Baso # (Auto) 100 (0-100) /uL Sodium 135 L (137-145) mmol/L Potassium 4.3 (3.4-5.1) mmol/L Chloride 104 (98-107) mmol/L Carbon Dioxide 21 L (22-32) mmol/L BUN 49 H (9-20) mg/dL Creatinine 1.84 H (0.66-1.25) mg/dL Estimated GFR 35 L (>60) mL/min BUN/Creatinine Ratio 26.6 H (6-22) Glucose 124 H (70-99) mg/dL Lactate 2.1 1.2 (0.7-2.1) mmol/L Calcium 8.5 (8.4-10.2) mg/dL Total Bilirubin 0.7 (0.2-1.3) mg/dL AST 39 (17-59) IU/L ALT 18 (<50) IU/L Alkaline Phosphatase 81 (38-126) U/L Total Creatine Kinase 54 L (55-170) U/L Troponin I 0.029 (0.01-0.034) ng/mL NT-Pro-B Natriuret Pep 4300 H (<450) pg/mL Total Protein 6.4 (6.3-8.2) g/dL Albumin 3.5 (3.5-5.0) g/dL Globulin 2.9 (1.7-4.1) g/dL Albumin/Globulin Ratio 1.2 (1.0-2.8) Lipase 55 (23-300) U/L Procalcitonin 0.677 H (<0.5) ng/mL Blood Type O Positive Antibody Screen Negative ECG Data Attestation: I personally reviewed and interpreted this ECG as follows: Prior ECG tracings: available for review Interpretation: Sinus rhythm premature atrial complexes right bundle-branch, left anterior fascicular block rate of 99 IL 202 QRS of 138 QTC of 497, patient has prior from 04/18/2025 that actually looks quite similar to today's. MDM Narrative Medical decision making narrative: Patient appears to be hypotensive tachycardic, was at facility for EPO fusion with Oncology but has had a prior GI bleed and appears to have prior transfusions. He is quite pale and I suspect symptoms are possibly from anemia but we will also obtain sepsis labs. We will give L bolus but hold off on 30 cc/kilos bolus. Patient may require blood transfusion. Patient notes he is DNR/DNI he is okay with blood transfusion, does have old POLST form that reflects this as well. Labs show white count of 20.5 had any white count of 9.1 in April, hemoglobin is actually 9.5 consistent with priors with the end of April and early May, platelets are 177 predominance of neutrophils. Chemistries show creatinine 1.84 consistent with prior earlier in May, BUN 49 sodium is 135 with a CO2 of 21 normal potassium and chloride glucose is 124 with a lactate of 2.1 LFTs are appropriate troponin 0.029 with a BNP of 4300. Patient's priors has been about [id number] in the past. Procalcitonin EKG sinus rhythm premature atrial complexes right bundle-branch block left anterior fascicular block appears quite similar to prior from April of 2025. Chest x-ray shows cardiomegaly, no evidence of acute cardiopulmonary process. CT chest no acute PE, suspect interstitial changes related to prior COVID-19 pneumonia patchy posterior bibasilar infiltrates it is just pneumonia consider aspiration, advanced coronary artery calcifications. CT abdomen pelvis acute diverticulitis can not exclude circumferential underlying lesion recommend nonemergent direct visualization utilizing colonoscopy. Findings consistent with distal esophagitis, patchy bibasilar infiltrates, advanced coronary artery calcifications and mild cardiomegaly, gynecomastia. Urine shows 1 squamous no other signs of infection. Patient received a L bolus was quite hypotensive initially responded well systolic became 100 from 70. Map of 75. Because of patient's CHF history and BNP is quite elevated even compared to priors we will hold off on 30 cc/kilos bolus and do aliquots 500 mL as patient is high-risk for decompensation with the fluid overload. Based on patient's vital signs and a labs concern for potential sepsis patient was covered with broad-spectrum antibiotic. Patient has had a CT of chest and abdomen pelvis as he has had complaint of neck pain but also has a history of lung transplant and has not no other clear source of infection currently. Patient's workup appears to be consistent with diverticulitis possibly also underlying pneumonia. Patient was not hypoxic upon arrival but was given oxygen for supportive care. After patient's arrived blood pressure was improving but then dropped again had another 500 mL bolus and after discussion about pressors patient is DNR/DNI with no plan for pressors their understanding of the his pressure continues to drop that would result in . They are okay with supporting with antibiotics and fluids but understand that he is high-risk for fluid overload. Patient also given sagittal for little bit broader spectrum coverage for his diverticulitis. Patient is alert cognizant for these conversations in his very clear that he does not wish for pressors, intubation or CPR. Current map is 70 with a systolic of 95. Paged hospitalist @ [phone] Spoke with the hospitalist Dr. Marquez @ [phone] accepts for inpatient admission. Discussed patient's goals of care. Critical Care Time Critical Care Time Critical Care Time: Yes Total Critical Care Time: 40 Attestation: The high probability of a clinically significant, sudden or life threatening deterioration of the cardiac and pulmonary system(s) required my full and direct attention, intervention and personal management. The aggregate critical care time was [--] minutes. This time is in addition to time spent performing reported procedures but includes the following: [x] Data Review and interpretation [x] Patient assessment and monitoring of vital signs [x] Documentation [x] Medication orders and management Discharge Plan Departure Patient Disposition: Admitted As Inpatient Clinical Impression: Diverticulitis, Pneumonia, Septic shock Admit Date/Time: 05/25/25 12:37 Admit Provider: Brad Marquez
--- NOTE | 2025-05-25 09:54 | EKG_ITS ---
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
[2025-05-25] MEDS: SODIUM CHLORIDE 0.9% 1,000 ML 1000 ML IV (10:04)
[2025-05-25 10:10] LABS: Add Manual Diff / Slide Review NO; Hematocrit 30.3 % (41-53); Hemoglobin 9.5 g/dL (13.5-17.5); Lymphocytes Absolute Auto 1400 /uL (1100-4500); Mean Corpuscular HGB Conc 31.3 % (30-36); Mean Corpuscular Hemoglobin 27.6 PG (26-34); Mean Corpuscular Volume 88.2 fL (80-100); Platelet Count 177 X10^3/uL (150-400)
[2025-05-25 10:32] LABS: Lactate (Lactic Acid) 2.1 mmol/L (0.7-2.1)
--- NOTE | 2025-05-25 10:32 | DI.CT.S_ITS ---
PROCEDURE: CT ABDOMEN PELVIS W CON INDICATIONS: hypotension, hx lung transplant, elevated wbc, r neck hurt TECHNIQUE: After the administration of intravenous contrast, axial sections acquired from the lung bases to the pubic symphysis. Coronal and sagittal reformats were performed. For radiation dose reduction, the following was used: automated exposure control, adjustment of mA and/or kV according to patient size. COMPARISON: [facility], CT, CT ABDOMEN PELVIS W CON, 12/26/2021, 12:33. FINDINGS: Image quality: Diagnostic. Lower Chest: Circumferential distal esophageal thickening, suggesting distal esophagitis. Patchy bibasilar densities. Advanced coronary artery calcifications. Mild cardiomegaly. Gynecomastia. ABDOMEN: Liver: No solid mass. Gallbladder: Absent Biliary ducts: No biliary dilation. Pancreas: No ductal dilation. Spleen: Size is within normal limits. Adrenal Glands: No adrenal nodules. Kidneys and Ureters: No hydronephrosis. No solid mass. No complex renal cystic lesion which requires follow up. Stomach and Bowel: Abnormal appearance of sigmoid. There is an element of acute diverticulitis. There is also circumferential wall thickening present. Reference axial image 134 of series 2. Cannot exclude a circumferential underlying lesion. Peritoneum: No abnormal intraperitoneal fluid. No free air. Ventral Wall: No significant ventral hernia. Abdominal Nodes: No retroperitoneal or mesenteric adenopathy by size criteria. Vessels: Aorta and inferior vena cava are normal in size. PELVIS: Pelvic Organs: Unremarkable. Bladder: No bladder wall thickening, accounting for underdistention. Pelvic Nodes: No enlarged lymph nodes. Miscellaneous: No inguinal hernias are seen. Bones: No aggressive osseous abnormality. Remote L2 through L4 lumbar fusion. Chronic severe L1 compression with bony retropulsion and perhaps moderate canal stenosis. IMPRESSION: 1. Acute diverticulitis. 2. Cannot exclude circumferential underlying lesion. Recommend nonemergent direct visualization utilizing colonoscopy. 3. Findings consistent with distal esophagitis. 4. Patchy bibasilar infiltrates. 5. Advanced coronary artery calcifications and mild cardiomegaly. 6. Gynecomastia. Dictated by: Horace Patel M.D. on 05/25/2025 at 12:03 Approved by: Horace Patel M.D. on 05/25/2025 at 12:09
--- NOTE | 2025-05-25 10:32 | DI.CT.S_ITS ---
PROCEDURE: CT ANGIO CHEST PE PROTOCOL INDICATIONS: hypotension, hx lung transplant, elevated wbc TECHNIQUE: After the administration of intravenous contrast, 2 mm thick sections acquired from the pulmonary apices to the posterior costophrenic angles. 3-dimensional maximum intensity projection (MIP) coronal and sagittal reformats were then acquired through the thorax. For radiation dose reduction, the following was used: automated exposure control, adjustment of mA and/or kV according to patient size. COMPARISON: [facility], CT, CT ANGIO CHEST PE PROTOCOL, 09/17/2021, 0:21. FINDINGS: Image quality: Diagnostic. Pulmonary arteries: Pulmonary arteries are normal in size, and demonstrate no intraluminal filling defects to suggest central pulmonary embolism. Lower Neck: No enlarged lymph nodes. Thyroid: No thyroid nodules which require sonographic follow up, per consensus guidelines. Axillae: No enlarged lymph nodes. Chest Wall: Unremarkable. Bones: Midline sternotomy.. Lungs and Pleura: No pneumothorax or pleural effusions. Bilateral interstitial changes. Findings may represent residual of remote COVID-19 pneumonia. Additionally, there are patchy posterior bibasilar areas of minimal consolidation which potentially represent acute pneumonia. Consider aspiration. Heart: No pericardial effusion. Advanced coronary artery calcifications. Mild cardiomegaly. Thoracic Vessels: No aortic aneurysm. Mediastinum and [place]: No enlarged lymph nodes. Esophagus: No wall thickening. No hiatal hernia. Upper Abdomen: Visualized upper abdomen solid organs and bowel loops appear normal. IMPRESSION: 1. No acute pulmonary emboli. 2. Suspect that there are interstitial changes related to previous COVID-19 pneumonia. 3. Patchy posterior bibasilar infiltrates suggest acute pneumonia. Consider aspiration pneumonia. 4. Advanced coronary artery calcifications. Dictated by: Horace Patel M.D. on 05/25/2025 at 12:00 Approved by: Horace Patel M.D. on 05/25/2025 at 12:03
[2025-05-25 10:34] LABS: Alanine Aminotransferase 18 IU/L (<50); Albumin 3.5 g/dL (3.5-5.0); Albumin Globulin Ratio 1.2 (1.0-2.8); Alkaline Phosphatase 81 U/L (38-126); Blood Urea Nitrogen 49 mg/dL (9-20); Calcium 8.5 mg/dL (8.4-10.2); Carbon Dioxide 21 mmol/L (22-32); Chloride 104 mmol/L (98-107); Creatine Kinase 54 U/L (55-170); Estimated Glomerular Filt Rate 35 mL/min (>60); Globulin 2.9 g/dL (1.7-4.1); Glucose 124 mg/dL (70-99); HEMOLYSIS 21 (0-50); Lipase 55 U/L (23-300); Potassium 4.3 mmol/L (3.4-5.1); Sodium 135 mmol/L (137-145); Total Protein 6.4 g/dL (6.3-8.2)
[2025-05-25] MEDS: PIPERACILLIN/TAZO 4.5 GM in SODIUM CHLORIDE 0.9% 100 ML IV ×2 (10:45→19:59)
[2025-05-25 10:46] LABS: NT-proBNP (BNP-Adult 18+) 4300 pg/mL (<450); Troponin I 0.029 ng/mL (0.01-0.034)
[2025-05-25 10:51] LABS: Procalcitonin 0.677 ng/mL (<0.5)
[2025-05-25 11:41] LABS: Reflexed Lactate in 2 Hours Y
[2025-05-25] MEDS: ACETAMINOPHEN 325 MG TABLET 650 MG PO (12:01)
[2025-05-25] MEDS: SODIUM CHLORIDE 0.9% 500 ML 1000 ML IV ×2 (12:01→15:10)
[2025-05-25 12:23] LABS: Lactate 2HR (Lactic Acid Rflx) 1.2 mmol/L (0.7-2.1)
--- NOTE | 2025-05-25 12:50 | PM.HP.1 ---
History of Present Illness History of Present Illness Date Patient Seen: 05/25/25 Time Patient Seen: 14:30 Chief complaint: low Blood pressure, sent from [facility] Narrative: The patient was [facility] in from [facility]. He was noted to be hypotensive there. He is currently at [facility] is a long-term care patient. He was a remote history of lung transplant and chronic immunosuppression. He was feeling his normal self but was noted to be hypotensive. In the ED he was given 2 L of fluid a remained relatively hypotensive. He was given empiric antibiotics and blood cultures were obtained. There was concern on imaging for possible pneumonia versus diverticulitis. He denies a cough it is above and beyond his chronic baseline cough. He was had some abdominal pain but denies any diarrhea or change in appetite. He was DNR, this is reconfirmed in the ED and he declined any vasopressor agents. His was with him in the ED and then went home. No recent fevers, chills, rhinorrhea, or cough. No hematemesis or rectal bleeding. 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 COVID-19 Aortic stenosis Encounter for subsequent annual wellness visit (AWV) in Medicare patient Macrocytosis CKD (chronic kidney disease) stage 3, GFR 30-59 ml/min Chronic low back pain Hearing impaired IPF (idiopathic pulmonary fibrosis) Hypothyroid Diabetes Hyperlipidemia Hypertension Coronary artery disease Anemia Tubular adenoma of colon Surgical History Status post lung transplantation Hx of cholecystectomy Hx of bilateral cataract extraction H/O lung transplant (2009) Family History Father Patient denies significant medical history Mother Patient denies significant medical history Social History marital status: household members: spouse Smoking Status: Former smoker alcohol intake: former Meds Home Medications and Allergies Home Medications ?Medication ?Instructions ?Recorded ?Confirmed ?Type azithromycin 250 mg tablet 500 mg PO DAILY 08/28/24 09/11/24 History itraconazole 100 mg capsule 100 mg PO BID 08/28/24 09/11/24 History prednisone 5 mg tablet 5 mg PO DAILY 08/28/24 09/11/24 History sitagliptin phosphate 50 mg tablet 50 mg PO DAILY 08/28/24 09/11/24 History (Januvia) sulfamethoxazole 800 0.5 tab PO 3XW 08/28/24 09/11/24 History mg-trimethoprim 160 mg tablet tacrolimus 1 mg capsule, 1 mg PO Q12H 08/28/24 09/11/24 History immediate-release tamsulosin 0.4 mg capsule 0.4 mg PO QPM 08/28/24 09/11/24 History valganciclovir 450 mg tablet 450 mg PO 3XW 08/28/24 09/11/24 History levothyroxine 150 mcg tablet 150 mcg PO DAILY #90 tabs 09/04/24 09/11/24 Rx amoxicillin 875 mg-potassium 1 tab PO BID #10 tabs 09/14/24 Rx clavulanate 125 mg tablet oseltamivir 30 mg capsule (Tamiflu) 30 mg PO BID #10 caps 09/14/24 Rx Allergies Allergy/AdvReac Type Severity Reaction Status Date / Time No Known Drug Allergies Allergy Verified 05/25/25 09:52 Review of Systems Review of Systems Narrative: All else reviewed and otherwise unremarkable except as noted in the history and physical. Exam Vital Signs (past 8 hours): - 05/25/25 09:48 05/25/25 09:54 05/25/25 09:54 Temperature 98.4 F Pulse Rate 104 H 99 H Respiratory Rate 18 Blood Pressure 72/39 L 73/45 L Pulse Oximetry 95 93 Oxygen Delivery Method Room Air Oxygen Flow Rate 05/25/25 10:00 05/25/25 10:00 05/25/25 10:05 Temperature Pulse Rate 101 H 100 H Respiratory Rate 19 17 Blood Pressure 72/43 L Pulse Oximetry 94 96 Oxygen Delivery Method Nasal Cannula Oxygen Flow Rate 2 05/25/25 10:05 05/25/25 10:10 05/25/25 10:10 Temperature Pulse Rate 97 H Respiratory Rate 24 Blood Pressure 91/53 L 89/50 L Pulse Oximetry 98 Oxygen Delivery Method Nasal Cannula Oxygen Flow Rate 2 05/25/25 10:12 05/25/25 10:12 05/25/25 10:15 Temperature Pulse Rate 99 H Respiratory Rate 23 Blood Pressure 84/51 L 94/53 L Pulse Oximetry 99 Oxygen Delivery Method Nasal Cannula Oxygen Flow Rate 2 05/25/25 10:15 05/25/25 10:20 05/25/25 10:20 Temperature Pulse Rate 100 H 99 H Respiratory Rate 24 Blood Pressure 99/56 L Pulse Oximetry 99 100 Oxygen Delivery Method Nasal Cannula Nasal Cannula Oxygen Flow Rate 2 2 05/25/25 10:25 05/25/25 10:25 05/25/25 10:30 Temperature Pulse Rate 101 H Respiratory Rate 24 Blood Pressure 104/59 L 103/57 L Pulse Oximetry 99 Oxygen Delivery Method Nasal Cannula Oxygen Flow Rate 2 05/25/25 10:30 05/25/25 10:35 05/25/25 10:35 Temperature Pulse Rate 100 H 100 H Respiratory Rate 24 24 Blood Pressure 106/58 L Pulse Oximetry Oxygen Delivery Method Oxygen Flow Rate 05/25/25 10:40 05/25/25 10:40 05/25/25 10:45 Temperature Pulse Rate 103 H Respiratory Rate 18 Blood Pressure 102/62 99/61 Pulse Oximetry Oxygen Delivery Method Oxygen Flow Rate 05/25/25 10:45 05/25/25 10:50 05/25/25 10:50 Temperature Pulse Rate 103 H 102 H Respiratory Rate 18 Blood Pressure 105/59 L Pulse Oximetry Oxygen Delivery Method Oxygen Flow Rate 05/25/25 10:55 05/25/25 10:55 05/25/25 11:20 Temperature Pulse Rate 103 H 104 H Respiratory Rate 22 24 Blood Pressure 104/59 L Pulse Oximetry 99 97 Oxygen Delivery Method Nasal Cannula Nasal Cannula Oxygen Flow Rate 2 2 05/25/25 11:22 05/25/25 11:22 05/25/25 11:25 Temperature Pulse Rate 103 H Respiratory Rate 19 Blood Pressure 94/53 L 92/51 L Pulse Oximetry 98 Oxygen Delivery Method Room Air Nasal Cannula Oxygen Flow Rate 2 05/25/25 11:25 05/25/25 11:30 05/25/25 11:30 Temperature Pulse Rate 102 H 101 H Respiratory Rate 17 16 Blood Pressure 93/55 L Pulse Oximetry 98 99 Oxygen Delivery Method Nasal Cannula Nasal Cannula Oxygen Flow Rate 1 1 05/25/25 11:35 05/25/25 11:35 05/25/25 11:40 Temperature Pulse Rate 102 H 104 H Respiratory Rate 15 23 Blood Pressure 84/51 L Pulse Oximetry 98 98 Oxygen Delivery Method Oxygen Flow Rate 05/25/25 11:41 05/25/25 11:41 05/25/25 11:45 Temperature Pulse Rate 104 H 104 H Respiratory Rate 16 19 Blood Pressure 82/53 L Pulse Oximetry 98 97 Oxygen Delivery Method Oxygen Flow Rate 05/25/25 11:50 05/25/25 11:55 05/25/25 11:56 Temperature 98.3 F Pulse Rate 103 H 104 H 103 H Respiratory Rate 24 22 Blood Pressure Pulse Oximetry 96 96 96 Oxygen Delivery Method Room Air Room Air Room Air Oxygen Flow Rate 05/25/25 11:56 05/25/25 12:00 05/25/25 12:00 Temperature Pulse Rate 102 H Respiratory Rate 24 Blood Pressure 85/51 L 85/51 L Pulse Oximetry 97 Oxygen Delivery Method Oxygen Flow Rate 05/25/25 12:05 05/25/25 12:05 05/25/25 12:10 Temperature Pulse Rate 101 H 102 H Respiratory Rate 25 H 31 H Blood Pressure 86/50 L Pulse Oximetry 96 95 Oxygen Delivery Method Oxygen Flow Rate 05/25/25 12:10 05/25/25 12:15 05/25/25 12:15 Temperature Pulse Rate 101 H Respiratory Rate 28 H Blood Pressure 90/54 L 91/52 L Pulse Oximetry 94 Oxygen Delivery Method Oxygen Flow Rate 05/25/25 12:20 05/25/25 12:20 05/25/25 12:25 Temperature Pulse Rate 102 H 102 H Respiratory Rate 29 H 26 H Blood Pressure 89/50 L Pulse Oximetry 92 98 Oxygen Delivery Method Oxygen Flow Rate 05/25/25 12:25 Temperature Pulse Rate Respiratory Rate Blood Pressure 96/54 L Pulse Oximetry Oxygen Delivery Method Oxygen Flow Rate Oxygen Delivery Method Room Air Oxygen Flow Rate 1 Narrative Exam Narrative: NAD, alert and oriented, fluent speech, calm. Normocephalic skull, EOMI, anicteric sclera, symmetric pupils. Oropharynx unremarkable, no droop. Neck supple, midline trachea, no adenopathy. Lungs clear, normal rate and effort. Heart regular, no murmur gallop or rub. Abdomen is soft, non distended and non tender. Extremities are free of edema. Skin is he was notable for a lot of scarring over his entire scalp where he was had multiple laser treatments for cancerous lesions. Joints are not swollen or deformed. Judgment appears to be normal. 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 No acute pulmonary emboli. 2. Suspect that there are interstitial changes related to previous COVID-19 pneumonia. 3. Patchy posterior bibasilar infiltrates suggest acute pneumonia. Consider aspiration pneumonia. 4. Advanced coronary artery calcifications. Abdomen CT: 1. Acute diverticulitis. 2. Cannot exclude circumferential underlying lesion. Recommend nonemergent direct visualization utilizing colonoscopy. 3. Findings consistent with distal esophagitis. 4. Patchy bibasilar infiltrates. 5. Advanced coronary artery calcifications and mild cardiomegaly. 6. Gynecomastia. Labs 05/25/25 09:55 05/25/25 09:55 Labs: Laboratory Results - last 24 hr 05/25/25 05/25/25 05/25/25 09:55 09:57 11:55 WBC 20.5 H RBC 3.44 L Hgb 9.5 L Hct 30.3 L MCV 88.2 MCH 27.6 MCHC 31.3 RDW 18.9 H Plt Count 177 Neut % (Auto) 90.1 H Lymph % (Auto) 6.8 L [place] % (Auto) 2.4 L Eos % (Auto) 0.1 L Baso % (Auto) 0.6 Neut # (Auto) 90317 H Lymph # (Auto) 1400 [place] # (Auto) 500 Eos # (Auto) 0 Baso # (Auto) 100 Sodium 135 L Potassium 4.3 Chloride 104 Carbon Dioxide 21 L BUN 49 H Creatinine 1.84 H Estimated GFR 35 L BUN/Creatinine Ratio 26.6 H Glucose 124 H Lactate 2.1 1.2 Calcium 8.5 Total Bilirubin 0.7 AST 39 ALT 18 Alkaline Phosphatase 81 Total Creatine Kinase 54 L Troponin I 0.029 NT-Pro-B Natriuret Pep 4300 H Total Protein 6.4 Albumin 3.5 Globulin 2.9 Albumin/Globulin Ratio 1.2 Lipase 55 Procalcitonin 0.677 H Blood Type O Positive Antibody Screen Negative Assessment & Plan Assessment & Plan narrative: 1. Acute diverticulitis, present on admission and active. 2. Septic shock, present on admission and active. 3. Remote lung transplant, present on admission and stable. 4. CKD stage 4, stable. 5. Hypothyroidism, active. 6. BPH with history of retention, stable. PLAN: -IV fluids and IV antibiotics. We will use Zosyn to cover for diverticulitis. -we will monitor blood pressure, no vasopressors per his choice. -monitor blood cultures, and renal function. He was DNR, with limited level of care wishes. is proxy decision maker. Anticipate 2 midnights in the hospital, supports inpatient status. Time-Based Coding :: 35 min spent with patient and on the chart (including review of chart, obtaining history, exam, reviewing outside data, placing orders, documenting exam and treatment plan, and counseling patient) on 05/25. Quality MIPS - Admit I confirm the patient?s Advance Care Plan is present, Code status is documented, Surrogate decision maker is in patient?s record [If Yes, STOP here]: Yes The patient?s Advance Care plan is not present because I confirmed today that the patient does not wish or was not able to name a surrogate decision maker or provide an Advance Care Plan.: Yes [facility] - Meds 'Current medications' to include all prescriptions, [id number] products, herbals, cannabis/cannabidiol products, and vitamin/mineral/dietary (nutritional) supplements. I have utilized all available resources to obtain, update, or review the patient?s current medications. [If Yes, STOP here]: Yes
[2025-05-25 13:05] LABS: Bilirubin Urine UA NEGATIVE (NEGATIVE); Color Urine UA YELLOW; Glucose Urine UA NEGATIVE (Negative); Ketones Urine UA NEGATIVE (NEGATIVE); Leukocyte Esterase Urine UA NEGATIVE (NEGATIVE); Nitrite Urine UA NEGATIVE (Negative); Occult Blood Urine UA NEGATIVE (Negative); Protein Urine UA NEGATIVE (Negative); Specific Gravity Urine UA <=1.005 (1.000-1.035); Urobilinogen Urine UA 0.2 E.U./dL (0.2); pH Urine UA 5.0 (4.5-8.0)
[2025-05-25 13:06] LABS: Appearance Urine UA Slightly Cloudy
[2025-05-25 13:15] LABS: Culture Indicated Urine Cult Not Indicated
[2025-05-25 14:29] LABS: Ictotest Urine Negative (Negative)
[2025-05-25] MEDS: SODIUM CHLORIDE 0.9% 1,000 ML 100 ML IV (14:40)
[2025-05-25] MEDS: metroNIDAZOLE 500 MG/100 ML PIGGYBACK 100 MG IV (14:41)
[2025-05-25] MEDS: HEPARIN 5,000 UNIT/ML VIAL 5000 UNIT SUBCUT (19:59)
[2025-05-26] MEDS: SODIUM CHLORIDE 0.9% 1,000 ML 100 ML IV ×2 (01:03→10:42)
[2025-05-26] MEDS: ACETAMINOPHEN 325 MG TABLET 650 MG PO ×2 (01:45→14:52)
[2025-05-26 03:00] VITALS: BP 92/62; PULSE 93; RESP 18; TEMP 36.8; O2SAT 99
[2025-05-26] MEDS: PIPERACILLIN/TAZO 4.5 GM in SODIUM CHLORIDE 0.9% 100 ML IV (03:38)
[2025-05-26 06:09] LABS: Add Manual Diff / Slide Review NO; Hematocrit 23.6 % (41-53); Hemoglobin 7.3 g/dL (13.5-17.5); Lymphocytes Absolute Auto 2200 /uL (1100-4500); Mean Corpuscular HGB Conc 30.8 % (30-36); Mean Corpuscular Hemoglobin 27.3 PG (26-34); Mean Corpuscular Volume 88.5 fL (80-100); Platelet Count 141 X10^3/uL (150-400)
[2025-05-26 06:24] LABS: Blood Urea Nitrogen 42 mg/dL (9-20); Calcium 7.2 mg/dL (8.4-10.2); Carbon Dioxide 20 mmol/L (22-32); Chloride 111 mmol/L (98-107); Estimated Glomerular Filt Rate 39 mL/min (>60); Glucose 75 mg/dL (70-99); HEMOLYSIS 18 (0-50); Potassium 4.5 mmol/L (3.4-5.1); Sodium 135 mmol/L (137-145)
--- NOTE | 2025-05-26 07:34 | P.PN_ITS ---
Subjective Subjective Interval history: Summary: 05/25 admit, The patient was sent in from the [facility]fusion [facility]. He was noted to be hypotensive there. He is currently at [facility] is a long-term care patient. He was a remote history of lung transplant and chronic immunosuppression. He was feeling his normal self but was noted to be hypotensive. In the ED he was given 2 L of fluid a remained relatively hypotensive. He was given empiric antibiotics and blood cultures were obtained. There was concern on imaging for possible pneumonia versus diverticulitis. He denies a cough it is above and beyond his chronic baseline cough. He was had some abdominal pain but denies any diarrhea or change in appetite. He was DNR, this is reconfirmed in the ED and he declined any vasopressor agents. His was with him in the ED and then went home. No recent fevers, chills, rhinorrhea, or cough. No hematemesis or rectal bleeding. S: He feels better today. He was little short of breath this morning but is much improved. He would like to go to a [facility] facility today but it was not quite ready medically. He he was on IV antibiotics for diverticulitis. He has improved abdomen pain. He still has a leukocytosis, and is on chronic immunosuppression for lung transplant. O: NAD, alert and oriented. Fluent speech. Lungs are clear, normal rate and effort. Heart is regular, no murmur gallop or rub. Abdomen is soft, non distended. Extremities are free of edema. Extensive scarring of his scalp. WBC 18.6 (down from 20.5), Cr stable at 1.71, procalc 0.677. Imaging: Chest CTA: 1. No acute pulmonary emboli. 2. Suspect that there are interstitial changes related to previous COVID-19 pneumonia. 3. Patchy posterior bibasilar infiltrates suggest acute pneumonia. Consider aspiration pneumonia. 4. Advanced coronary artery calcifications. Abdomen CT: 1. Acute diverticulitis. 2. Cannot exclude circumferential underlying lesion. Recommend nonemergent direct visualization utilizing colonoscopy. 3. Findings consistent with distal esophagitis. 4. Patchy bibasilar infiltrates. 5. Advanced coronary artery calcifications and mild cardiomegaly. 6. Gynecomastia. A/P: 1. Acute diverticulitis, present on admission and active. 2. Septic shock, present on admission and active. 3. Remote lung transplant, present on admission and stable. 4. CKD stage 4, stable. 5. Hypothyroidism, active. 6. BPH with history of retention, stable. PLAN: -IV fluids and IV antibiotics. Continue Zosyn to cover for diverticulitis. -we will monitor blood pressure, improved. -monitor blood cultures, and renal function (stable). BLAZE: 05/28. He was at high risk for adverse outcomes of infection given his chronic immunosuppression and history of lung transplant. He is DNR, with limited level of care wishes. is proxy decision maker. Anticipate 2 midnights in the hospital, supports inpatient status. Exam Vital Signs (past 8 hours): - 05/26/25 03:00 Temperature 98.2 F Pulse Rate 93 H Respiratory Rate 18 Blood Pressure 92/62 Pulse Oximetry 99 Oxygen Flow Rate 1 Oxygen Delivery Method Room Air Oxygen Flow Rate 1 Objective Labs 05/26/25 05:26 05/26/25 05:26 Labs: Laboratory Results - last 24 hr 05/25/25 05/25/25 05/25/25 09:55 09:57 11:55 WBC 20.5 H RBC 3.44 L Hgb 9.5 L Hct 30.3 L MCV 88.2 MCH 27.6 MCHC 31.3 RDW 18.9 H Plt Count 177 Neut % (Auto) 90.1 H Lymph % (Auto) 6.8 L [place] % (Auto) 2.4 L Eos % (Auto) 0.1 L Baso % (Auto) 0.6 Neut # (Auto) 57942 H Lymph # (Auto) 1400 [place] # (Auto) 500 Eos # (Auto) 0 Baso # (Auto) 100 Sodium 135 L Potassium 4.3 Chloride 104 Carbon Dioxide 21 L BUN 49 H Creatinine 1.84 H Estimated GFR 35 L BUN/Creatinine Ratio 26.6 H Glucose 124 H Lactate 2.1 1.2 Calcium 8.5 Total Bilirubin 0.7 AST 39 ALT 18 Alkaline Phosphatase 81 Total Creatine Kinase 54 L Troponin I 0.029 NT-Pro-B Natriuret Pep 4300 H Total Protein 6.4 Albumin 3.5 Globulin 2.9 Albumin/Globulin Ratio 1.2 Lipase 55 Procalcitonin 0.677 H Urine Color Urine Appearance Urine pH Ur Specific [place] Urine Protein Urine Glucose (UA) Urine Ketones Urine Occult Blood Urine Nitrate Urine Bilirubin Ur Bilirubin Confirm Urine Urobilinogen Ur Leukocyte Esterase Urine RBC Urine WBC Ur Squamous Epith Cells Urine Bacteria Ur Culture Indicated? Vol Urine Centrifuged Blood Type O Positive Antibody Screen Negative 05/25/25 05/25/25 05/26/25 12:48 12:49 05:26 WBC 18.6 H RBC 2.67 L Hgb 7.3 L Hct 23.6 L MCV 88.5 MCH 27.3 MCHC 30.8 RDW 18.4 H Plt Count 141 L Neut % (Auto) 82.4 H Lymph % (Auto) 11.6 L [place] % (Auto) 4.9 Eos % (Auto) 0.5 L Baso % (Auto) 0.6 Neut # (Auto) 73696 H Lymph # (Auto) 2200 [place] # (Auto) 900 Eos # (Auto) 100 Baso # (Auto) 100 Sodium 135 L Potassium 4.5 Chloride 111 H Carbon Dioxide 20 L BUN 42 H Creatinine 1.71 H Estimated GFR 39 L BUN/Creatinine Ratio 24.6 H Glucose 75 Lactate Calcium 7.2 L Total Bilirubin AST ALT Alkaline Phosphatase Total Creatine Kinase Troponin I NT-Pro-B Natriuret Pep Total Protein Albumin Globulin Albumin/Globulin Ratio Lipase Procalcitonin Urine Color Yellow Urine Appearance Slightly cloudy Urine pH 5.0 Ur Specific [place] <=1.005 Urine Protein Negative Urine Glucose (UA) Negative Urine Ketones Negative Urine Occult Blood Negative Urine Nitrate Negative Urine Bilirubin Negative Ur Bilirubin Confirm Negative Urine Urobilinogen 0.2 Ur Leukocyte Esterase Negative Urine RBC None seen Urine WBC None seen Ur Squamous Epith Cells 0-1 /hpf Urine Bacteria None seen Ur Culture Indicated? 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 COVID-19 Aortic stenosis Encounter for subsequent annual wellness visit (AWV) in Medicare patient Macrocytosis CKD (chronic kidney disease) stage 3, GFR 30-59 ml/min Chronic low back pain Hearing impaired IPF (idiopathic pulmonary fibrosis) Hypothyroid Diabetes Hyperlipidemia Hypertension Coronary artery disease Anemia Tubular adenoma of colon Surgical History Status post lung transplantation Hx of cholecystectomy Hx of bilateral cataract extraction H/O lung transplant (2009) Family History Father Patient denies significant medical history Mother Patient denies significant medical history Social History marital status: household members: spouse Smoking Status: Former smoker alcohol intake: former Assessment & Plan Time-Based Coding :: [TOTAL MINUTES] spent with patient and on the chart (including review of chart, obtaining history, exam, reviewing outside data, placing orders, documenting exam and treatment plan, and counseling patient) on [DATE].
[2025-05-26 08:00] VITALS: BP 95/65; PULSE 87; TEMP 36.4; O2SAT 100
[2025-05-26] MEDS: HYDROCORTISONE 100 MG/2 ML VIAL IV ×3 (09:27→21:45)
[2025-05-26] MEDS: HEPARIN 5,000 UNIT/ML VIAL 5000 UNIT SUBCUT ×2 (09:27→21:45)
[2025-05-26] MEDS: AZITHROMYCIN 250 MG TABLET 500 MG PO (09:28)
[2025-05-26] MEDS: LEVOTHYROXINE 100 MCG TABLET 150 MCG PO (09:28)
[2025-05-26] MEDS: TACROLIMUS 0.5 MG CAPSULE 1 MG PO ×2 (09:28→21:49)
[2025-05-26] MEDS: PIPERACILLIN/TAZO 3.375 GM in SODIUM CHLORIDE 0.9% 100 ML IV ×2 (11:49→19:08)
[2025-05-26 12:00] VITALS: BP 122/62; PULSE 90; RESP 17; TEMP 36.4; O2SAT 97
[2025-05-26 17:46] VITALS: BP 145/77; PULSE 102; RESP 15; TEMP 36.7; O2SAT 96
[2025-05-26 21:28] VITALS: BP 133/73; PULSE 99; RESP 16; TEMP 36.2; O2SAT 95
[2025-05-27] VITALS (7 sets, daily range): BP systolic 136–178; BP diastolic 72–99; PULSE 94–113; RESP 15–20; TEMP 36.1–36.6; O2SAT 95–100
[2025-05-27] MEDS: HYDROCORTISONE 100 MG/2 ML VIAL IV ×4 (02:59→22:26)
[2025-05-27] MEDS: PIPERACILLIN/TAZO 3.375 GM in SODIUM CHLORIDE 0.9% 100 ML IV ×3 (03:00→18:51)
[2025-05-27] MEDS: SODIUM CHLORIDE 0.9% 1,000 ML 100 ML IV ×2 (03:01→06:57)
[2025-05-27 05:50] LABS: Add Manual Diff / Slide Review NO; Hematocrit 23.4 % (41-53); Hemoglobin 7.3 g/dL (13.5-17.5); Lymphocytes Absolute Auto 700 /uL (1100-4500); Mean Corpuscular HGB Conc 31.4 % (30-36); Mean Corpuscular Hemoglobin 27.6 PG (26-34); Mean Corpuscular Volume 88.0 fL (80-100); Platelet Count 150 X10^3/uL (150-400)
[2025-05-27 06:02] LABS: Blood Urea Nitrogen 40 mg/dL (9-20); Calcium 7.7 mg/dL (8.4-10.2); Carbon Dioxide 18 mmol/L (22-32); Chloride 110 mmol/L (98-107); Estimated Glomerular Filt Rate 40 mL/min (>60); Glucose 181 mg/dL (70-99); HEMOLYSIS < 15 (0-50); Potassium 4.3 mmol/L (3.4-5.1); Sodium 134 mmol/L (137-145)
[2025-05-27] MEDS: LEVOTHYROXINE 100 MCG TABLET 150 MCG PO (06:36)
--- NOTE | 2025-05-27 07:58 | PM.PN.1 ---
Subjective Subjective Date Patient Seen: 05/27/25 Interval history: 05/25 admit, The patient was sent in from the [facility]fusion [facility]. He was noted to be hypotensive there. He is currently at [facility] as a long-term care private pay patient. He has a remote history of lung transplant and chronic immunosuppression. He was feeling his normal self but was noted to be hypotensive. In the ED he was given 2 L of fluid and remained relatively hypotensive. He was given empiric antibiotics and blood cultures were obtained. There was concern on imaging for possible pneumonia versus diverticulitis. He denies a cough that is above and beyond his chronic baseline cough. He has had some abdominal pain but denies any diarrhea or change in appetite. He was DNR, this is reconfirmed in the ED and he declined any vasopressor agents. No recent fevers, chills, rhinorrhea, or cough. No hematemesis or rectal bleeding. S: He feels better today. The white count has dropped from 18 down to 11.5. The hemoglobin is stable at 7.3. The creatinine has dropped from 1.71 down to 1.64. He still has a leukocytosis, and is on chronic immunosuppression for lung transplant. O: NAD, alert and oriented. Fluent speech. Lungs are clear, normal rate and effort. Heart is regular, no murmur gallop or rub. Abdomen is soft, non distended. Extremities are free of edema. Extensive scarring of his scalp. Imaging: Chest CTA: 1. No acute pulmonary emboli. 2. Suspect that there are interstitial changes related to previous COVID-19 pneumonia. 3. Patchy posterior bibasilar infiltrates suggest acute pneumonia. Consider aspiration pneumonia. 4. Advanced coronary artery calcifications. Abdomen CT: 1. Acute diverticulitis. 2. Cannot exclude circumferential underlying lesion. Recommend nonemergent direct visualization utilizing colonoscopy. 3. Findings consistent with distal esophagitis. 4. Patchy bibasilar infiltrates. 5. Advanced coronary artery calcifications and mild cardiomegaly. 6. Gynecomastia. A/P: 1. Acute diverticulitis, present on admission and active. 2. Septic shock, present on admission and active. 3. Remote lung transplant, present on admission and stable. 4. CKD stage 4, stable. 5. Hypothyroidism, active. 6. BPH with history of retention, stable. PLAN: -IV fluids and IV antibiotics. Continue Zosyn to cover for diverticulitis. -we will monitor blood pressure, improved. -monitor blood cultures, and renal function (stable). BLAZE: 05/28. He is at high risk for adverse outcomes of infection given his chronic immunosuppression and history of lung transplant. He is DNR, with limited level of care wishes. is proxy decision maker. Anticipate 2 midnights in the hospital, supports inpatient status. Exam Vital Signs (past 8 hours): - 05/27/25 00:27 05/27/25 04:00 Temperature 97.9 F 97.1 F L Pulse Rate 94 H 96 H Respiratory Rate 16 15 Blood Pressure 136/72 154/81 H Pulse Oximetry 97 96 Oxygen Flow Rate 0 0 Oxygen Delivery Method Room Air Oxygen Flow Rate 0 Objective Labs 05/27/25 05:36 05/27/25 05:36 Labs: Laboratory Results - last 24 hr 05/27/25 05:36 WBC 11.5 H RBC 2.66 L Hgb 7.3 L Hct 23.4 L MCV 88.0 MCH 27.6 MCHC 31.4 RDW 18.3 H Plt Count 150 Neut % (Auto) 91.2 H Lymph % (Auto) 6.2 L [place] % (Auto) 2.5 L Eos % (Auto) 0.0 L Baso % (Auto) 0.1 Neut # (Auto) 43505 H Lymph # (Auto) 700 L [place] # (Auto) 300 Eos # (Auto) 0 Baso # (Auto) 0 Sodium 134 L Potassium 4.3 Chloride 110 H Carbon Dioxide 18 L BUN 40 H Creatinine 1.64 H Estimated GFR 40 L BUN/Creatinine Ratio 24.4 H Glucose 181 H D Calcium 7.7 L PFSH Medical History 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 COVID-19 Aortic stenosis Encounter for subsequent annual wellness visit (AWV) in Medicare patient Macrocytosis CKD (chronic kidney disease) stage 3, GFR 30-59 ml/min Chronic low back pain Hearing impaired IPF (idiopathic pulmonary fibrosis) Hypothyroid Diabetes Hyperlipidemia Hypertension Coronary artery disease Anemia Tubular adenoma of colon Surgical History Status post lung transplantation Hx of cholecystectomy Hx of bilateral cataract extraction H/O lung transplant (2009) Family History Father Patient denies significant medical history Mother Patient denies significant medical history Social History marital status: household members: spouse alcohol intake: former Assessment & Plan Time-Based Coding :: [TOTAL MINUTES] spent with patient and on the chart (including review of chart, obtaining history, exam, reviewing outside data, placing orders, documenting exam and treatment plan, and counseling patient) on [DATE].
[2025-05-27] MEDS: HEPARIN 5,000 UNIT/ML VIAL 5000 UNIT SUBCUT ×2 (09:52→22:26)
[2025-05-27] MEDS: AZITHROMYCIN 250 MG TABLET 500 MG PO (09:52)
[2025-05-27] MEDS: TRIMETH/SULFA 160/800 (DS) TABLET 0.5 TAB PO (09:52)
[2025-05-27] MEDS: TACROLIMUS 0.5 MG CAPSULE 1 MG PO ×2 (09:53→22:25)
--- NOTE | 2025-05-27 12:32 | DIET.CONS ---
Dietary Consultation Note Admission Date: 05/25/2025 12:37 Assessment: 84 y M presenting with hypotension. Dietitian screened for low MNA score. EMR reviewed. 75-100% recorded PO intakes, DFM reviewed for meal composition adequacy. Stable weight with no significant weight loss recently. Ht: 175.26 cm Wt: 84.3 kg BMI: 27.1 UBW: 77 kg on 04/17/25, 78 kg on 09/09/24, 86 kg on 05/27/24 Last BM: 05/26/25 (05/26/25 09:18) MNA: 10 Esvin Score: 18 Diet: 05/25/25 Lunch General (Regular) Diet Diet Modifications: Food Texture: Level 7 - Regular Liquid Consistency: Level 0 - Thin Nutrition Percent Meal Consumed 90 05/26/25 18:00 Percent Meal Consumed 100% 05/26/25 08:45 Percent Meal Consumed 75% 05/25/25 18:00 Percent Meal Consumed 100% 05/25/25 17:54 Labs: RBC 2.66 X10^6/uL (4.5-5.9) L 05/27/25 05:36 Hgb 7.3 g/dL (13.5-17.5) L 05/27/25 05:36 Hct 23.4 % (41-53) L 05/27/25 05:36 Creatinine 1.64 mg/dL (0.66-1.25) H 05/27/25 05:36 Lactate 1.2 mmol/L (0.7-2.1) 05/25/25 11:55 NT-Pro-B Natriuret Pep 4300 pg/mL (<450) H 05/25/25 09:55 Nutrition Diagnosis: none at this time Monitoring/Evaluations: po intakes Electronically Signed by: Tatianna Morin 05/27/25 12:32 Clinical Dietitian [address] [id number]
[2025-05-27] MEDS: ACETAMINOPHEN 325 MG TABLET 650 MG PO (22:26)
[2025-05-28 00:04] VITALS: BP 158/88
[2025-05-28] MEDS: HYDROCORTISONE 100 MG/2 ML VIAL IV ×2 (03:04→09:29)
[2025-05-28 04:00] VITALS: BP 156/96; PULSE 94; RESP 21; TEMP 36.2; O2SAT 100
[2025-05-28] MEDS: PIPERACILLIN/TAZO 3.375 GM in SODIUM CHLORIDE 0.9% 100 ML IV (04:35)
[2025-05-28] MEDS: LEVOTHYROXINE 100 MCG TABLET 150 MCG PO (06:53)
--- NOTE | 2025-05-28 07:13 | PM.DS.1 ---
History of Present Illness History of Present Illness Date Patient Seen: 05/28/25 Chief complaint: low Blood pressure, sent from [facility] Narrative: The patient was sent in from the Infusion [facility]. He was noted to be hypotensive there. He is currently at [facility] is a long-term care patient. He was a remote history of lung transplant and chronic immunosuppression. He was feeling his normal self but was noted to be hypotensive. In the ED he was given 2 L of fluid a remained relatively hypotensive. He was given empiric antibiotics and blood cultures were obtained. There was concern on imaging for possible pneumonia versus diverticulitis. He denies a cough it is above and beyond his chronic baseline cough. He was had some abdominal pain but denies any diarrhea or change in appetite. He was DNR, this is reconfirmed in the ED and he declined any vasopressor agents. His was with him in the ED and then went home. No recent fevers, chills, rhinorrhea, or cough. No hematemesis or rectal bleeding. Discharge Providers Provider Date of admission: 05/25/25 12:37 Discharge Date: 05/28/25 Primary care physician: Shy Angel DO Discharge provider: Rosa Zuniga MD Summary Hospital Course Hospital Course: 1. Acute diverticulitis 2. Septic shock 3. Remote lung transplant 4. CKD stage 4 5. Hypothyroidism 6. BPH with history of retention 7. Chronic Anemia In summary on the day of discharge the patient remained stable with IV Zosyn and will be converted to 7 more days of oral Augmentin at the long term facility. He will be getting his Epogen injection at the infusion center. He talks about needing another transfusion but his hemoglobin has been stable at 7.4 and our usual transfusion threshold is below 7.0. His blood pressure continues to be quite high at times and will need close monitoring at his facility. Status at Discharge Cognitive/behavioral status at discharge: oriented Functional status at discharge: uses cane/walker Overall status at discharge: patient is progressing back to baseline Time Spent with Patient Time spent: Less than 30 minutes Exam Vital Signs (past 8 hours): - 05/27/25 23:35 05/28/25 00:04 05/28/25 04:00 Temperature 97.7 F 97.2 F L Pulse Rate 113 H 94 H Respiratory Rate 15 21 Blood Pressure 178/99 H 158/88 H 156/96 H Pulse Oximetry 98 100 Oxygen Flow Rate 2 Oxygen Delivery Method Room Air Oxygen Flow Rate 2 Narrative Exam Narrative: Alert and oriented x3. Reflective and tearful talking about his lung disease and lung transplant years ago in [place]. He has bilateral trace edema. Heart is regular rate and rhythm no murmur. There are scattered crackles in both lungs. 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 COVID-19 Aortic stenosis Encounter for subsequent annual wellness visit (AWV) in Medicare patient Macrocytosis CKD (chronic kidney disease) stage 3, GFR 30-59 ml/min Chronic low back pain Hearing impaired IPF (idiopathic pulmonary fibrosis) Hypothyroid Diabetes Hyperlipidemia Hypertension Coronary artery disease Anemia Tubular adenoma of colon Surgical History Status post lung transplantation Hx of cholecystectomy Hx of bilateral cataract extraction H/O lung transplant (2009) Family History Father Patient denies significant medical history Mother Patient denies significant medical history Social History marital status: household members: spouse alcohol intake: former Discharge Plan Discharge Plan Patient Disposition: SNF Transfer to: [facility] Under care of provider: Facility medical transport specialist Discharge orders & Medications Prescriptions: New amoxicillin-pot clavulanate [Augmentin] 500-125 mg tablet 1 tab PO TID Qty: 20 0RF Continued levothyroxine 150 mcg tablet 150 mcg PO DAILY Qty: 90 3RF valganciclovir 450 mg tablet 450 mg PO 3XW Rx Instructions: Patient reports he takes this med 3 X weekly on , Sun, and . prednisone 5 mg tablet 5 mg PO DAILY sulfamethoxazole-trimethoprim 800-160 mg tablet 0.5 tab PO 3XW tamsulosin 0.4 mg capsule 0.4 mg PO QPM itraconazole 100 mg capsule 100 mg PO BID tacrolimus 1 mg capsule 1 mg PO Q12H Januvia 50 mg tablet 50 mg PO DAILY Changed azithromycin 250 mg tablet 500 mg PO 3XW Qty: 12 0RF Rx Instructions: Pts instructions say to take 1 tablet by mouth Sunday,,Sunday Follow up/Referrals: Shy Angel DO [Primary Care Provider, Family Practice] Diet/Activity/Treatments Diet: Diet as Tolerated Liquid consistency: Normal/Thin Food texture: Regular [facility] Reason for rehabilitation: Recovery r/t decondition Rehab type: Physical therapy and Occupational therapy Visit Report/Discharge Packet Stand Alone Forms: Patient Portal/API Discharge Data Primary Care Provider: Shy Angel
[2025-05-28 08:00] VITALS: BP 155/88; PULSE 89; RESP 19; TEMP 36.6; O2SAT 99
[2025-05-28] MEDS: AZITHROMYCIN 250 MG TABLET 500 MG PO (09:29)
[2025-05-28] MEDS: HEPARIN 5,000 UNIT/ML VIAL 5000 UNIT SUBCUT (09:29)
[2025-05-28] MEDS: TACROLIMUS 0.5 MG CAPSULE 1 MG PO (09:29)
--- NOTE | 2025-05-28 10:50 | CM.DPC ---
DCP Discharge SNF Per MD, pt remains stable for discharge back to SNF today and orders placed. [facility] confirms they can still accept today around 1130. Sent discharge summary, signed med list, no scripts needed and no PASRR needed for return. EDELMIRA met bedside with pt and RN and updated on d/c today and he remains agreeable and his w/c is in the room for transport and provided the number to call report to the RN. Updated dermatology physician and [employer] SET UP OPERATOR. Patient to d/c to [facility] today via his w/c around 1130 before eventual return home. Madhavi Leigh MSW
--- NOTE | 2025-05-28 12:55 | PC.NURSE ---
1130 - discharge order reviewed. Nursing report given to [facility] Marianne. PIV and telemetry device removed. Pt's own medication returned. Pt discharged with [facility] staff via wheelchair.
== END 2025-05-28 11:30 | DRG 871 ==
LOC: ED 12:35 → AC 12:38
PROVIDERS: Admitting Provider Hospitalist; Emergency Provider Emergency Medicine; Family Provider Family Medicine; PCP Family Medicine; Referring Provider Emergency Medicine; Visit Provider Hospitalist
DX: A41.9 Sepsis, unspecified organism (principal); R65.21 Severe sepsis with septic shock; Z94.2 Lung transplant status; N18.4 Chronic kidney disease, stage 4 (severe); K57.32 Diverticulitis of large intestine without perforation or abscess without bleeding; E03.9 Hypothyroidism, unspecified; N40.0 Benign prostatic hyperplasia without lower urinary tract symptoms; Z66 Do not resuscitate; E11.22 Type 2 diabetes mellitus with diabetic chronic kidney disease; D63.1 Anemia in chronic kidney disease; Z79.52 Long term (current) use of systemic steroids; Z79.621 Long term (current) use of calcineurin inhibitor; Z79.890 Hormone replacement therapy; Z87.891 Personal history of nicotine dependence; Z79.84 Long term (current) use of oral hypoglycemic drugs
CPT/HCPCS: 36415; 71045; 71275; 74177; 80048; 80053; 81001; 81003; 82550; 83605; 83690; 83880; 84145; 84484; 85025; 86850; 86900; 86901; 87040; 93005; 93010; 96361; 96365; 99285; 99291; J1644; J1720; J2543; J7507; Q9967

== ENCOUNTER → 2025-05-29 11:00 | Outpatient (CLI) | payer MEDICARE, SELFPAY ==
[2025-05-25 13:52] VITALS: BMI 27.1
[2025-05-29] MEDS: EPOETIN ALFA-EPBX 20,000 UNIT/ML VIAL 20000 UNIT SUBCUT (10:59)
[2025-05-30 14:07] VITALS: BMI 28.1
== END ==
PROVIDERS: Family Provider Family Medicine; PCP Family Medicine; Referring Provider Internal Medicine Nephrology; Visit Provider Internal Medicine Nephrology
DX: N18.32 Chronic kidney disease, stage 3b (principal); D63.1 Anemia in chronic kidney disease
CPT/HCPCS: 96372; Q5106

== ENCOUNTER 2025-05-30 07:10 | Observation (INO) | payer MEDICARE, SELFPAY ==
[2025-05-25 13:52] VITALS: BMI 27.1
[2025-05-30] VITALS (13 sets, daily range): BP systolic 111–156; BP diastolic 63–93; PULSE 80–106; RESP 14–22; TEMP 36–36.9; O2SAT 96–100; BMI 28.1
--- NOTE | 2025-05-30 07:14 | ED.GIBLEED ---
HPI - GI Bleed General Chief complaint: GI Bleed Stated complaint: blood in stool Time Seen by Provider: 05/30/25 07:13 History of Present Illness HPI Narrative: 84-year-old male history of prior lung transplant for fibrosis, hypothyroidism, CKD stage 4, hypertension, dyslipidemia, CAD, prior GI bleed presents today with bloody stools and abdominal cramps along with numerous bouts of diarrhea for 1 day. He denies any aspirin, NSAIDs, anticoagulants, only Tylenol use recently. Patient denies chest pain, shortness of breath, lightheadedness, dizziness, back pain, hematuria. Other than what is stated 14 point review of system is negative. Related Data Home Medications ?Medication ?Instructions ?Recorded ?Confirmed itraconazole 100 mg capsule 100 mg PO BID 08/28/24 05/26/25 prednisone 5 mg tablet 5 mg PO DAILY 08/28/24 05/26/25 sitagliptin phosphate 50 mg tablet 50 mg PO DAILY 08/28/24 05/26/25 (Januvia) sulfamethoxazole 800 0.5 tab PO 3XW 08/28/24 05/26/25 mg-trimethoprim 160 mg tablet tacrolimus 1 mg capsule, 1 mg PO Q12H 08/28/24 05/26/25 immediate-release tamsulosin 0.4 mg capsule 0.4 mg PO QPM 08/28/24 05/26/25 valganciclovir 450 mg tablet 450 mg PO 3XW 08/28/24 05/26/25 Previous Rx's ?Medication ?Instructions ?Recorded levothyroxine 150 mcg tablet 150 mcg PO DAILY #90 tabs 09/04/24 amoxicillin 500 mg-potassium 1 tab PO TID #20 tabs 05/28/25 clavulanate 125 mg tablet (Augmentin) azithromycin 250 mg tablet 500 mg (2 x 250 mg) PO 3XW #12 tabs 05/28/25 Allergies Allergy/AdvReac Type Severity Reaction Status Date / Time No Known Drug Allergies Allergy Verified 05/25/25 09:52 Review of Systems Review of Systems ROS Unobtainable: All systems reviewed & are unremarkable except as noted in HPI and below Patient History Medical History 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 COVID-19 Aortic stenosis Encounter for subsequent annual wellness visit (AWV) in Medicare patient Macrocytosis CKD (chronic kidney disease) stage 3, GFR 30-59 ml/min Chronic low back pain Hearing impaired IPF (idiopathic pulmonary fibrosis) Hypothyroid Diabetes Hyperlipidemia Hypertension Coronary artery disease Anemia Tubular adenoma of colon Surgical History Status post lung transplantation Hx of cholecystectomy Hx of bilateral cataract extraction H/O lung transplant (2009) Family History Father Patient denies significant medical history Mother Patient denies significant medical history Social History marital status: household members: spouse alcohol intake: former alcohol intake frequency: holidays/special occasions only Exam Narrative Exam Narrative: GENERAL: [84] year old patient appears stated age. Well-developed patient, in mild distress. HEAD: Atraumatic. Normocephalic. EYES: Pupils equal round and reactive. Extraocular motions intact. No scleral icterus. No injection or drainage. ENT: Nose without bleeding, purulent drainage. Throat without erythema, tonsillar hypertrophy or exudate. Airway patent. NECK: Trachea midline. Non tender CARDIOVASCULAR: Regular rate and rhythm without murmurs, gallops, or rubs. RESPIRATORY: Clear to auscultation. Breath sounds equal bilaterally. No wheezes, rales, or rhonchi. GASTROINTESTINAL: Abdomen soft, non-tender, nondistended. Rectal: Hemoccult positive no fissure or hemorrhoid external seen EXTREMITIES: No edema or joint tenderness. BACK: Nontender without deformity or crepitance. No flank tenderness. NEURO: AOx3. SKIN: No rash or erythema of visible areas Initial Vital Signs Initial Vital Signs: Vital Signs Pulse Rate 101 H 05/30/25 07:10 Blood Pressure 137/79 05/30/25 07:10 Pulse Oximetry 99 05/30/25 07:10 Course Orders Ordered: ED Orders 05/30/25 07:17 Complete Blood Count AUTO DIFF Stat Comprehensive Metabolic Panel Stat PTT Partial Thromboplastin Kevin Stat Prothrombin Time INR Stat Type and Screen Stat 05/30/25 07:22 CT angio Abd/Pel GI Bleed Stat Ondansetron HCl (Ondansetron 4 Mg/2 Ml Inj) 4 mg IV NOW PRN PRN Reason: Nausea And Vomiting Ondansetron HCl (Ondansetron 4 Mg Odt) 4 mg PO NOW PRN PRN Reason: Nausea And Vomiting Discontinued Medications Lactated Ringer's (Lactated Ringers) 1,000 mls @ 1,000 mls/hr IV BOLUS ONE Stop: 05/30/25 08:21 Last Admin: 05/30/25 07:31 Dose: 1,000 mls/hr Documented By: Vital Signs Vital signs: Vital Signs - 8 hr 05/30/25 07:10 05/30/25 07:10 05/30/25 07:12 Temperature 98.4 F Pulse Rate 101 H 97 H Respiratory Rate 16 Blood Pressure 137/79 137/79 Pulse Oximetry 99 97 Oxygen Delivery Method Room Air 05/30/25 07:30 05/30/25 07:30 05/30/25 08:00 Temperature Pulse Rate 93 H 96 H Respiratory Rate Blood Pressure 111/63 Pulse Oximetry 99 99 Oxygen Delivery Method 05/30/25 08:00 Temperature Pulse Rate Respiratory Rate Blood Pressure 142/74 H Pulse Oximetry Oxygen Delivery Method MDM - GI Bleed Lab Data 05/30/25 07:17 05/30/25 07:17 Labs: Lab Results 05/30/25 Range/Units 07:17 WBC 7.2 (4.5-11.0) X10^3/uL RBC 2.95 L (4.5-5.9) X10^6/uL Hgb 8.2 L (13.5-17.5) g/dL Hct 25.9 L (41-53) % MCV 87.7 (80-100) fL MCH 27.8 (26-34) PG MCHC 31.6 (30-36) % RDW 18.3 H (11.6-14.8) % Plt Count 178 (150-400) X10^3/uL Neut % (Auto) 58.0 (50-75) % Lymph % (Auto) 21.8 L (25-40) % Daniels % (Auto) 18.1 H (3-14) % Eos % (Auto) 1.8 L (2-4) % Baso % (Auto) 0.3 (0-2) % Neut # (Auto) 4200 (1984-3903) /uL Lymph # (Auto) 1600 (0688-7028) /uL Daniels # (Auto) 1300 H (0-900) /uL Eos # (Auto) 100 (0-450) /uL Baso # (Auto) 0 (0-100) /uL PT 10.9 (9.4-12.5) SECONDS INR 1.0 (0.9-1.3) APTT 25 L (25.1-36.5) SECONDS Sodium 137 (137-145) mmol/L Potassium 3.4 (3.4-5.1) mmol/L Chloride 111 H (98-107) mmol/L Carbon Dioxide 24 (22-32) mmol/L BUN 37 H (9-20) mg/dL Creatinine 1.56 H (0.66-1.25) mg/dL Estimated GFR 43 L (>60) mL/min BUN/Creatinine Ratio 23.7 H (6-22) Glucose 102 H (70-99) mg/dL Calcium 8.2 L (8.4-10.2) mg/dL Total Bilirubin 0.3 (0.2-1.3) mg/dL AST 30 (17-59) IU/L ALT 21 (<50) IU/L Alkaline Phosphatase 58 (38-126) U/L Total Protein 5.6 L (6.3-8.2) g/dL Albumin 2.8 L (3.5-5.0) g/dL Globulin 2.8 (1.7-4.1) g/dL Albumin/Globulin Ratio 1.0 (1.0-2.8) Point of Care Testing Stool Occult Blood Positive Urine Dip Bedside Urine Glucose Negative Bedside Urine Bilirubin - Negative Bedside Urine Ketone - Negative Urine Specific [place] 1.010 Bedside Urine Occult Blood - Negative Bedside Urine pH 6.0 Bedside Urine Protein - Negative Bedside Urine Urobilinogen - Negative Bedside Urine Nitrite - Negative Bedside Urine Leukocytes - Negative Esterase Imaging Data CT scan - abdomen/pelvis: Radiologist's Impression: [address] [address] [address] Scan Report Signed Patient: Darryl Jacobs MR#: [id number] : 1940 Acct:[id number] Age/Sex: 84 / M Date of Service: 05/30/25 Loc: ED Accession Number: [id number] Procedure: CT angio Abd/Pel GI Bleed Ordering Provider: Murillo,David C. D.O. PROCEDURE: CT ANGIO ABD/PEL GI BLEED INDICATIONS: GI BLEED PROTOCOL TECHNIQUE: Noncontrast images were performed. After the administration of intravenous contrast, 2.5 mm sections acquired from the diaphragm to the iliac crests, with arterial and venous phases. 10 mm maximum intensity projection (MIP) coronal and sagittal reformats were then performed. For radiation dose reduction, the following was used: automated exposure control. COMPARISON: [facility], CT, CT ABDOMEN PELVIS W CON, 05/25/2025, 10:41. FINDINGS: Image quality: There is artifact associated with the metallic hardware. Artifact from the metallic hardware is reduced by metal reconstruction algorithm. Abdominal aorta: No aortic aneurysm or evidence of acute aortic syndrome. Mesenteric arteries: There is dense calcification involving the origins of the mesenteric arteries. There is approximately 50% narrowing seen involving the origin of the celiac axis and the origin of the superior mesenteric artery. Mild narrowing can be seen involving the origin of the CLAY. Renal arteries: Matter 6 single right renal artery, with 30-40% narrowing proximally. A left, there is a significant accessory branch superior to the main left renal artery. Both branches demonstrate high-grade stenosis, at least 80%. Lower chest: Incidental note is made of bilateral gynecomastia. Advanced coronary artery calcification can be seen. There is dense calcification of the mitral valve annulus. There is thickening of the distal esophagus ABDOMEN: Liver: No solid mass. Gallbladder: Removed. Biliary ducts: No biliary dilation. Pancreas: No ductal dilation. Spleen: Size is within normal limits. Adrenal Glands: No adrenal nodules. Kidneys and Ureters: No hydronephrosis. No solid mass. At the inferior pole of the right kidney, there is a cyst seen, with mild calcification along the septation. No abnormal enhancement can be seen. Simple appearing cysts are seen elsewhere. There is mild atrophy of the left kidney. Stomach and Bowel: Mild thickening is seen involving the distal sigmoid colon, where there is diverticula formation. Mild surrounding inflammatory change can be seen. The wall thickening and inflammatory change are clearly improved compared to the recent prior CT. Careful scrutiny is given to potential areas of active extravasation. When comparing the arterial phase images and the noncontrast images, no site of active bleeding can be seen. No dilated loops of small bowel are seen. The stomach demonstrates no significant abnormality. Peritoneum: No abnormal intraperitoneal fluid. No free air. Ventral Wall: No hernia. Abdominal Nodes: No retroperitoneal or mesenteric adenopathy by size criteria. Vessels: Aorta, as above. Normal IVC. PELVIS: Pelvic Organs: Unremarkable. Bladder: Unremarkable. Pelvic Nodes: No enlarged lymph nodes. Miscellaneous: No inguinal hernias are seen. Bones: No aggressive osseous abnormality. There is a remote L1 anterior wedge deformity. Lumbar spine postoperative and degenerative change can be seen. IMPRESSION: No site of active extravasation can be seen. Mild sigmoid diverticulitis, which is clearly improved compared to the recent prior CT. Approximately 50% narrowing can be seen involving the origins of the celiac axis and the SMA. There is a mild narrowing of the origin of the CLAY. Significant narrowing can be seen involving the origins of the main left renal artery and the accessory left renal artery, approximately 80%. There is mild left renal atrophy seen. Additional findings: Gynecomastia Advanced coronary calcification Dense calcification of the mitral valve annulus Thickening of the wall of the distal esophagus Cholecystectomy Remote L1 anterior wedge deformity Lumbar spine postoperative and degenerative change MDM Narrative Medical decision making narrative: All lab work, vital signs, nurse triage note, medication list, previous ER visits, and all imaging studies reviewed. CT abdomen and pelvis showed site of active extravasation seen. Mild sigmoid diverticulitis which is clearly improved compared to the recent prior CT. Approximately 50% narrowing can be seen involving the origins of the celiac axis in the SMA. There is mild narrowing of the original. CLAY significant narrowing can be seen in the involving the origins of the left main renal artery in the accessory left renal artery approximately 80%. There is mild left renal atrophy seen. WBC 7.2 hemoglobin 8.2 hematocrit 25.9 platelet count 178 INR 1.0 sodium 137 potassium 3.4 chloride 111 CO2 24 BUN 37 creatinine 1.56 glucose 102. Patient given 1 L lactated ringer Cipro and Flagyl IV. Case discussed with our hospitalist who has graciously accepted the patient for inpatient admission. Attempted to call Dr. Grimm surgeon on-call but he was scrubbed in on a case and this was relayed to Dr. Ospina. Discharge Plan Departure Patient Disposition: Admitted As Inpatient Clinical Impression: Diverticular hemorrhage
--- NOTE | 2025-05-30 07:22 | DI.CT.S_ITS ---
PROCEDURE: CT ANGIO ABD/PEL GI BLEED INDICATIONS: GI BLEED PROTOCOL TECHNIQUE: Noncontrast images were performed. After the administration of intravenous contrast, 2.5 mm sections acquired from the diaphragm to the iliac crests, with arterial and venous phases. 10 mm maximum intensity projection (MIP) coronal and sagittal reformats were then performed. For radiation dose reduction, the following was used: automated exposure control. COMPARISON: [facility], CT, CT ABDOMEN PELVIS W CON, 05/25/2025, 10:41. FINDINGS: Image quality: There is artifact associated with the metallic hardware. Artifact from the metallic hardware is reduced by metal reconstruction algorithm. Abdominal aorta: No aortic aneurysm or evidence of acute aortic syndrome. Mesenteric arteries: There is dense calcification involving the origins of the mesenteric arteries. There is approximately 50% narrowing seen involving the origin of the celiac axis and the origin of the superior mesenteric artery. Mild narrowing can be seen involving the origin of the CLAY. Renal arteries: Matter 6 single right renal artery, with 30-40% narrowing proximally. A left, there is a significant accessory branch superior to the main left renal artery. Both branches demonstrate high-grade stenosis, at least 80%. Lower chest: Incidental note is made of bilateral gynecomastia. Advanced coronary artery calcification can be seen. There is dense calcification of the mitral valve annulus. There is thickening of the distal esophagus ABDOMEN: Liver: No solid mass. Gallbladder: Removed. Biliary ducts: No biliary dilation. Pancreas: No ductal dilation. Spleen: Size is within normal limits. Adrenal Glands: No adrenal nodules. Kidneys and Ureters: No hydronephrosis. No solid mass. At the inferior pole of the right kidney, there is a cyst seen, with mild calcification along the septation. No abnormal enhancement can be seen. Simple appearing cysts are seen elsewhere. There is mild atrophy of the left kidney. Stomach and Bowel: Mild thickening is seen involving the distal sigmoid colon, where there is diverticula formation. Mild surrounding inflammatory change can be seen. The wall thickening and inflammatory change are clearly improved compared to the recent prior CT. Careful scrutiny is given to potential areas of active extravasation. When comparing the arterial phase images and the noncontrast images, no site of active bleeding can be seen. No dilated loops of small bowel are seen. The stomach demonstrates no significant abnormality. Peritoneum: No abnormal intraperitoneal fluid. No free air. Ventral Wall: No hernia. Abdominal Nodes: No retroperitoneal or mesenteric adenopathy by size criteria. Vessels: Aorta, as above. Normal IVC. PELVIS: Pelvic Organs: Unremarkable. Bladder: Unremarkable. Pelvic Nodes: No enlarged lymph nodes. Miscellaneous: No inguinal hernias are seen. Bones: No aggressive osseous abnormality. There is a remote L1 anterior wedge deformity. Lumbar spine postoperative and degenerative change can be seen. IMPRESSION: No site of active extravasation can be seen. Mild sigmoid diverticulitis, which is clearly improved compared to the recent prior CT. Approximately 50% narrowing can be seen involving the origins of the celiac axis and the SMA. There is a mild narrowing of the origin of the CLAY. Significant narrowing can be seen involving the origins of the main left renal artery and the accessory left renal artery, approximately 80%. There is mild left renal atrophy seen. Additional findings: Gynecomastia Advanced coronary calcification Dense calcification of the mitral valve annulus Thickening of the wall of the distal esophagus Cholecystectomy Remote L1 anterior wedge deformity Lumbar spine postoperative and degenerative change Dictated by: Yazan Mcallister M.D. on 05/30/2025 at 8:06 Approved by: Yazan Mcallister M.D. on 05/30/2025 at 8:17
[2025-05-30] MEDS: LACTATED RINGERS 1,000 ML 1000 ML IV (07:31)
[2025-05-30 07:32] LABS: Add Manual Diff / Slide Review NO; Hematocrit 25.9 % (41-53); Hemoglobin 8.2 g/dL (13.5-17.5); Lymphocytes Absolute Auto 1600 /uL (1100-4500); Mean Corpuscular HGB Conc 31.6 % (30-36); Mean Corpuscular Hemoglobin 27.8 PG (26-34); Mean Corpuscular Volume 87.7 fL (80-100); Platelet Count 178 X10^3/uL (150-400)
[2025-05-30 07:41] LABS: INR 1.0 (0.9-1.3); Prothrombin Time 10.9 SECONDS (9.4-12.5)
[2025-05-30 07:43] LABS: PTT Partial Thromboplastin Tim 25 SECONDS (25.1-36.5)
[2025-05-30 07:45] LABS: Alanine Aminotransferase 21 IU/L (<50); Albumin 2.8 g/dL (3.5-5.0); Albumin Globulin Ratio 1.0 (1.0-2.8); Alkaline Phosphatase 58 U/L (38-126); Blood Urea Nitrogen 37 mg/dL (9-20); Calcium 8.2 mg/dL (8.4-10.2); Carbon Dioxide 24 mmol/L (22-32); Chloride 111 mmol/L (98-107); Estimated Glomerular Filt Rate 43 mL/min (>60); Globulin 2.8 g/dL (1.7-4.1); Glucose 102 mg/dL (70-99); HEMOLYSIS 17 (0-50); Potassium 3.4 mmol/L (3.4-5.1); Sodium 137 mmol/L (137-145); Total Protein 5.6 g/dL (6.3-8.2)
[2025-05-30] MEDS: CIPROFLOXACIN 400 MG/200 ML PIGGYBACK 200 MG IV (10:00)
--- NOTE | 2025-05-30 11:17 | PM.CN.IH.1 ---
History of Present Illness Consult details Date Patient Seen: 05/30/25 Time Patient Seen: 11:17 Chief complaint: blood in stool Reason for consult: Endoscopy request for GI bleeding Requesting provider: David Murillo Narrative: Consulted requested by ED for GI endoscopy. Patient being admitted to hospitalist service for LGI bleeding. Hgb 8.2. Coags normal. Not on thinners. H/O lung transplant, on prednisone. CTA results: No site of active extravasation can be seen. Mild sigmoid diverticulitis, which is clearly improved compared to the recent prior CT. Approximately 50% narrowing can be seen involving the origins of the celiac axis and the SMA. There is a mild narrowing of the origin of the CLAY. Significant narrowing can be seen involving the origins of the main left renal artery and the accessory left renal artery, approximately 80%. There is mild left renal atrophy seen. Meds Home Medications and Allergies Home Medications ?Medication ?Instructions ?Recorded ?Confirmed ?Type itraconazole 100 mg capsule 100 mg PO BID 08/28/24 05/26/25 History prednisone 5 mg tablet 5 mg PO DAILY 08/28/24 05/26/25 History sitagliptin phosphate 50 mg tablet 50 mg PO DAILY 08/28/24 05/26/25 History (Januvia) sulfamethoxazole 800 0.5 tab PO 3XW 08/28/24 05/26/25 History mg-trimethoprim 160 mg tablet tacrolimus 1 mg capsule, 1 mg PO Q12H 08/28/24 05/26/25 History immediate-release tamsulosin 0.4 mg capsule 0.4 mg PO QPM 08/28/24 05/26/25 History valganciclovir 450 mg tablet 450 mg PO 3XW 08/28/24 05/26/25 History levothyroxine 150 mcg tablet 150 mcg PO DAILY #90 tabs 09/04/24 05/26/25 Rx amoxicillin 500 mg-potassium 1 tab PO TID #20 tabs 05/28/25 Rx clavulanate 125 mg tablet (Augmentin) azithromycin 250 mg tablet 500 mg (2 x 250 mg) PO 3XW #12 tabs 05/28/25 05/26/25 Rx Allergies Allergy/AdvReac Type Severity Reaction Status Date / Time No Known Drug Allergies Allergy Verified 05/25/25 09:52 Exam Vital Signs (past 8 hours): - 05/30/25 07:10 05/30/25 07:10 05/30/25 07:12 Temperature 98.4 F Pulse Rate 101 H 97 H Respiratory Rate 16 Blood Pressure 137/79 137/79 Pulse Oximetry 99 97 Oxygen Delivery Method Room Air 05/30/25 07:30 05/30/25 07:30 05/30/25 08:00 Temperature Pulse Rate 93 H 96 H Respiratory Rate Blood Pressure 111/63 Pulse Oximetry 99 99 Oxygen Delivery Method 05/30/25 08:00 05/30/25 08:30 05/30/25 09:00 Temperature Pulse Rate 102 H 97 H Respiratory Rate Blood Pressure 142/74 H Pulse Oximetry 98 97 Oxygen Delivery Method 05/30/25 09:30 05/30/25 09:33 05/30/25 09:33 Temperature Pulse Rate 101 H 97 H Respiratory Rate Blood Pressure 156/81 H Pulse Oximetry 98 97 Oxygen Delivery Method 05/30/25 10:00 05/30/25 10:01 05/30/25 10:01 Temperature Pulse Rate 97 H 97 H Respiratory Rate Blood Pressure 155/72 H Pulse Oximetry 96 96 Oxygen Delivery Method Oxygen Delivery Method Room Air Narrative Exam Narrative: Appears frail Const General: comfortable Orientation: alert, awake and oriented x3 Resp Effort & Inspection: normal respiratory effort and able to speak in complete sentences Cardio Rate: regular rate GI Palpation: soft (NT) Objective Labs 05/30/25 07:17 05/30/25 07:17 Labs: Laboratory Results - last 24 hr 05/30/25 07:17 WBC 7.2 RBC 2.95 L Hgb 8.2 L Hct 25.9 L MCV 87.7 MCH 27.8 MCHC 31.6 RDW 18.3 H Plt Count 178 Neut % (Auto) 58.0 Lymph % (Auto) 21.8 L [place] % (Auto) 18.1 H Eos % (Auto) 1.8 L Baso % (Auto) 0.3 Neut # (Auto) 4200 Lymph # (Auto) 1600 [place] # (Auto) 1300 H Eos # (Auto) 100 Baso # (Auto) 0 PT 10.9 INR 1.0 APTT 25 L Sodium 137 Potassium 3.4 Chloride 111 H Carbon Dioxide 24 BUN 37 H Creatinine 1.56 H Estimated GFR 43 L BUN/Creatinine Ratio 23.7 H Glucose 102 H Calcium 8.2 L Total Bilirubin 0.3 AST 30 ALT 21 Alkaline Phosphatase 58 Total Protein 5.6 L Albumin 2.8 L Globulin 2.8 Albumin/Globulin Ratio 1.0 Blood Type O Positive Antibody Screen Negative PFSH Medical History 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 COVID-19 Aortic stenosis Encounter for subsequent annual wellness visit (AWV) in Medicare patient Macrocytosis CKD (chronic kidney disease) stage 3, GFR 30-59 ml/min Chronic low back pain Hearing impaired IPF (idiopathic pulmonary fibrosis) Hypothyroid Diabetes Hyperlipidemia Hypertension Coronary artery disease Anemia Tubular adenoma of colon Surgical History Status post lung transplantation Hx of cholecystectomy Hx of bilateral cataract extraction H/O lung transplant (2009) Family History Father Patient denies significant medical history Mother Patient denies significant medical history Social History marital status: household members: spouse Tobacco & Substance Use alcohol intake: former Assessment & Plan Assessment and plan (1) Lower GI bleeding: Status: Acute Plan Plan EGD/colonoscopy in AM with biopsy as needed. Bowel prep today. The risks, benefits and options regarding the procedure were explained to the patient in detail. Risk discussion included but not limited to: bleeding, perforation, unable to reach cecum, missed lesion. The patient was encouraged to ask questions and they were answered to their satisfaction. The patient understands and is agreeable to proceed. Time-Based Coding :: [TOTAL MINUTES] spent with patient and on the chart (including review of chart, obtaining history, exam, reviewing outside data, placing orders, documenting exam and treatment plan, and counseling patient) on [DATE]. PROFEE Charge Codes Inpatient or Observation consultation: [id number]
[2025-05-30] MEDS: PEG3350/SOD SULF,BICARB,CL/KCL 4,000 ML SOLUTION 4000 ML PO (12:05)
[2025-05-30] MEDS: metroNIDAZOLE 500 MG/100 ML PIGGYBACK 100 MG IV (12:07)
--- NOTE | 2025-05-30 13:22 | PM.HP.1 ---
History of Present Illness History of Present Illness Date Patient Seen: 05/30/25 Chief complaint: blood in stool Narrative: Chief complaint: Colitis with bloody stools and abdominal cramping recurrent History of present illness: 05/25: [facility] He was noted to be hypotensive there. He is currently at [facility] is a long-term care patient. He was a remote history of lung transplant and chronic immunosuppression. He was feeling his normal self but was noted to be hypotensive. In the ED he was given 2 L of fluid a remained relatively hypotensive. He was given empiric antibiotics and blood cultures were obtained. There was concern on imaging for possible pneumonia versus diverticulitis. He denies a cough it is above and beyond his chronic baseline cough. He was had some abdominal pain but denies any diarrhea or change in appetite. He was DNR, this is reconfirmed in the ED and he declined any vasopressor agents. His was with him in the ED and then went home. Patient was treated for acute diverticulitis which de-escalated and was doing pretty well transferred to [facility]. At that institution despite continued oral antibiotic treatment developed increasing abdominal pain and bloody stool was brought back to the emergency room 05/30: Findings in the emergency department: Significant for white count of 7.2 hemoglobin 8.2 which is improved from the No site of active extravasation can be seen. Mild sigmoid diverticulitis, which is clearly improved compared to the recent prior CT. Approximately 50% narrowing can be seen involving the origins of the celiac axis and the SMA. There is a mild narrowing of the origin of the CLAY. Significant narrowing can be seen involving the origins of the main left renal artery and the accessory left renal artery, approximately 80%. There is mild left renal atrophy seen. Case was discussed with surgery by the ED department started the patient on a preparation for a colonoscopy for evaluation Review of systems: No fever or chills No severe weakness No chest pain shortness for breath palpitations No urinary symptoms Physical exam: Elderly male no acute distress emotionally labile HEENT unremarkable Heart rate and rhythm regular no murmurs Lungs clear Abdomen is diffusely tender bowel sounds present Extremities no edema Neurologic nonfocal For objective laboratory and imaging see the bottom of the note Assessment and plan: Sigmoid diverticulitis and colitis continues to be symptomatic evaluation with colonoscopy after GoLYTELY preparation Empiric Cipro and Flagyl History of lung transplant on immunosuppressant without signs of complication Continue immunosuppressant CKD 4 stable Avoid nephrotoxic agents DVT prophylaxis: SCDs only due to bleeding Code status: Do not resuscitate Disposition: Observation for colonoscopy Time based billin minutes were involved management this patient including [id number] evaluation discussion with patient and discussion with emergency provider review of objective laboratory and imaging data PFSH Medical History 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 COVID-19 Aortic stenosis Encounter for subsequent annual wellness visit (AWV) in Medicare patient Macrocytosis CKD (chronic kidney disease) stage 3, GFR 30-59 ml/min Chronic low back pain Hearing impaired IPF (idiopathic pulmonary fibrosis) Hypothyroid Diabetes Hyperlipidemia Hypertension Coronary artery disease Anemia Tubular adenoma of colon Surgical History Status post lung transplantation Hx of cholecystectomy Hx of bilateral cataract extraction H/O lung transplant (2009) Family History Father Patient denies significant medical history Mother Patient denies significant medical history Social History marital status: household members: spouse alcohol intake: former Meds Home Medications and Allergies Home Medications ?Medication ?Instructions ?Recorded ?Confirmed ?Type itraconazole 100 mg capsule 100 mg PO BID 08/28/24 05/30/25 History prednisone 5 mg tablet 5 mg PO DAILY 08/28/24 05/30/25 History tacrolimus 1 mg capsule, 1 mg PO Q12H 08/28/24 05/30/25 History immediate-release tamsulosin 0.4 mg capsule 0.4 mg PO QPM 08/28/24 05/30/25 History valganciclovir 450 mg tablet 450 mg PO 3XW 08/28/24 05/30/25 History levothyroxine 150 mcg tablet 150 mcg PO DAILY #90 tabs 09/04/24 05/30/25 Rx amoxicillin 500 mg-potassium 1 tab PO TID #20 tabs 05/28/25 05/30/25 Rx clavulanate 125 mg tablet (Augmentin) azithromycin 250 mg tablet 500 mg (2 x 250 mg) PO 3XW #12 tabs 05/28/25 05/30/25 Rx Allergies Allergy/AdvReac Type Severity Reaction Status Date / Time tamsulosin (From Flomax) AdvReac Intermediate hypotension Verified 05/30/25 13:14 Exam Vital Signs (past 8 hours): - 05/30/25 07:10 05/30/25 07:10 05/30/25 07:12 Temperature 98.4 F Pulse Rate 101 H 97 H Respiratory Rate 16 Blood Pressure 137/79 137/79 Pulse Oximetry 99 97 Oxygen Delivery Method Room Air Oxygen Flow Rate 05/30/25 07:30 05/30/25 07:30 05/30/25 08:00 Temperature Pulse Rate 93 H 96 H Respiratory Rate Blood Pressure 111/63 Pulse Oximetry 99 99 Oxygen Delivery Method Oxygen Flow Rate 05/30/25 08:00 05/30/25 08:30 05/30/25 09:00 Temperature Pulse Rate 102 H 97 H Respiratory Rate Blood Pressure 142/74 H Pulse Oximetry 98 97 Oxygen Delivery Method Oxygen Flow Rate 05/30/25 09:30 05/30/25 09:33 05/30/25 09:33 Temperature Pulse Rate 101 H 97 H Respiratory Rate Blood Pressure 156/81 H Pulse Oximetry 98 97 Oxygen Delivery Method Oxygen Flow Rate 05/30/25 10:00 05/30/25 10:01 05/30/25 10:01 Temperature Pulse Rate 97 H 97 H Respiratory Rate Blood Pressure 155/72 H Pulse Oximetry 96 96 Oxygen Delivery Method Oxygen Flow Rate 05/30/25 10:55 Temperature 96.8 F L Pulse Rate 103 H Respiratory Rate 22 Blood Pressure 155/88 H Pulse Oximetry 100 Oxygen Delivery Method Oxygen Flow Rate 2 Oxygen Delivery Method Room Air Oxygen Flow Rate 2 Objective Labs 05/30/25 07:17 05/30/25 07:17 Labs: Laboratory Results - last 24 hr 05/30/25 07:17 WBC 7.2 RBC 2.95 L Hgb 8.2 L Hct 25.9 L MCV 87.7 MCH 27.8 MCHC 31.6 RDW 18.3 H Plt Count 178 Neut % (Auto) 58.0 Lymph % (Auto) 21.8 L [place] % (Auto) 18.1 H Eos % (Auto) 1.8 L Baso % (Auto) 0.3 Neut # (Auto) 4200 Lymph # (Auto) 1600 [place] # (Auto) 1300 H Eos # (Auto) 100 Baso # (Auto) 0 PT 10.9 INR 1.0 APTT 25 L Sodium 137 Potassium 3.4 Chloride 111 H Carbon Dioxide 24 BUN 37 H Creatinine 1.56 H Estimated GFR 43 L BUN/Creatinine Ratio 23.7 H Glucose 102 H Calcium 8.2 L Total Bilirubin 0.3 AST 30 ALT 21 Alkaline Phosphatase 58 Total Protein 5.6 L Albumin 2.8 L Globulin 2.8 Albumin/Globulin Ratio 1.0 Blood Type O Positive Antibody Screen Negative Assessment & Plan Time-Based Coding :: [TOTAL MINUTES] spent with patient and on the chart (including review of chart, obtaining history, exam, reviewing outside data, placing orders, documenting exam and treatment plan, and counseling patient) on [DATE].
[2025-05-30] MEDS: SODIUM CHLORIDE 0.45% 1,000 ML 100 ML IV (15:31)
--- NOTE | 2025-05-30 16:13 | PC.NURSE ---
Pt admitted for GI bleed, he will have a colonoscopy tomorrow and has started his prep earlier. He has had brown stools with red tinge/crimson color. He will be npo after 0000. Patient is a one person assist with walker to get up to the bsc. Tolerating clear liquids, continent of b and b.
[2025-05-30] MEDS: TACROLIMUS 0.5 MG CAPSULE 1 MG PO (21:25)
[2025-05-31] VITALS (16 sets, daily range): BP systolic 99–157; BP diastolic 54–83; PULSE 68–100; RESP 13–19; TEMP 35.5–36.6; O2SAT 93–100
--- NOTE | 2025-05-31 | PATH_ITS ---
[facility] Accession Number: [id number] No. of containers..04 Tissue . 01 Material submitted: . PART A: stomach - STOMACH, ANTRUM PART B: esophagus - ESOPHAGUS PART C: colon - CECAL MASS PART D: colon - COLON, DESCENDING MASS . 01 Diagnosis: Part A: STOMACH, ANTRUM: Gastric mucosa with mild chronic inflammation. No Helicobacter organisms identified. No intestinal metaplasia, dysplasia, or malignancy identified. . Part B: ESOPHAGUS: Squamocolumnar junctional mucosa with goblet cell (Mckeon's) metaplasia. No dysplasia identified. . Part C: CECAL MASS: Tubulovillous adenoma. No high-grade dysplasia or malignancy identified. See comment. . Specimen Comments: The clinical appearance of a cecal mass is noted. While no invasive adenocarcinoma is seen in the biopsy sample, correlation with the clinical endoscopic appearance is recommended for further evaluation. . Part D: COLON, DESCENDING MASS: 1. Colonic tissue with invasive adenocarcinoma, moderately differentiated. 2. No lymphovascular or perineural invasion identified. 3. No loss of mismatch repair proteins by immunohistochemical technique. See comment. . Specimen Comments: While only a small portion of invasive adenocarcinoma is present in this sample, this likely represents a sample of a larger lesion. The clinical appearance of a near circumferential mass is noted. The case has also been reviewed by Dr. Tara Horan, who concurs with the diagnosis. The results were discussed with Dr. Grimm by Dr. Castillo on 06/08/2025. STO 06/09/2025 1157 Local . 01 Electronically signed: . Elvis Castillo MD, Pathologist NPI- [id number] . 01 Gross description: . . . . Received are four formalin-filled containers each labeled with the patient's name. . A. In a container labeled antral, is one fragment of mazariegos, soft tissue which measures 0.5 x 0.2 x 0.1 cm. The specimen is totally submitted in cassette A1. . B. In a container labeled esophageal, are two fragments of mazariegos, soft tissue which range in size from 0.1 x 0.1 x 0.1 cm to 0.2 x 0.2 x 0.2 cm. All fragments are totally submitted in cassette B1. . C. In a container labeled cecal mass, are multiple fragments of mazariegos, soft tissue which range in size from less than 0.1 cm to 0.8 x 0.3 x 0.3 cm. All fragments are totally submitted in cassette C1. . D. In a container labeled descending colon mass, are four fragments of mazariegos, soft tissue which range in size from less than 0.1 cm to 0.4 x 0.2 x 0.2 cm. All fragments are totally submitted in cassette D1. ([id number]) /LUIS 06/09/2025 1157 Local . 01 Microscopic: . Part A: ANTRAL: An immunohistochemical stain was performed to evaluate for Helicobacter organisms and is negative. The control stains appropriately. * This test was developed and the performance characteristics were validated by [facility]. It has not been cleared or approved by the Food and Drug Administration. . IMMUNOHISTOCHEMISTRY TESTING FOR MISMATCH REPAIR PROTEINS: MLH1: Intact nuclear expression. MSH2: Intact nuclear expression. MSH6: Intact nuclear expression. PMS2: Intact nuclear expression. Background nonneoplastic tissue/internal control with intact nuclear expression. . INTERPRETATION: No loss of nuclear expression of MMR proteins: low probability of microsatellite instability-high (MSI-H)* . * There are exceptions to the above IHC interpretations. These results should not be considered in isolation, and clinical correlation with genetic counseling is recommended to assess the need for germline testing. . * This test was developed and the performance characteristics were validated by [employer]. It has not been cleared or approved by the Food and Drug Administration. . 01 Pathologist provided ICD-10: C18.6, D12.0, K22.70, K29.50 . 01 CPT . 125577, 764948, 644674, 782834, F27026, I43292 Specimen Comment: A courtesy copy of this report has been sent to [facility] Performed at: [address] [address], [place], [place] [id number] MD Elvis Castillo MD Phone: [phone]
[2025-05-31] MEDS: LEVOTHYROXINE 75 MCG TABLET 150 MCG PO (06:11)
[2025-05-31] MEDS: PANTOPRAZOLE DR 40 MG TABLET PO (06:11)
[2025-05-31] MEDS: SODIUM CHLORIDE 0.45% 1,000 ML 100 ML IV (06:21)
[2025-05-31 06:25] LABS: Add Manual Diff / Slide Review NO; Hematocrit 22.5 % (41-53); Hemoglobin 7.1 g/dL (13.5-17.5); Lymphocytes Absolute Auto 1600 /uL (1100-4500); Mean Corpuscular HGB Conc 31.5 % (30-36); Mean Corpuscular Hemoglobin 27.4 PG (26-34); Mean Corpuscular Volume 86.9 fL (80-100); Platelet Count 170 X10^3/uL (150-400)
[2025-05-31 06:37] LABS: Alanine Aminotransferase 21 IU/L (<50); Albumin 2.5 g/dL (3.5-5.0); Albumin Globulin Ratio 1.0 (1.0-2.8); Alkaline Phosphatase 53 U/L (38-126); Blood Urea Nitrogen 25 mg/dL (9-20); Calcium 7.7 mg/dL (8.4-10.2); Carbon Dioxide 24 mmol/L (22-32); Chloride 108 mmol/L (98-107); Estimated Glomerular Filt Rate 49 mL/min (>60); Globulin 2.5 g/dL (1.7-4.1); Glucose 82 mg/dL (70-99); HEMOLYSIS < 15 (0-50); Potassium 3.0 mmol/L (3.4-5.1); Sodium 140 mmol/L (137-145); Total Protein 5.0 g/dL (6.3-8.2)
[2025-05-31] MEDS: LACTATED RINGERS 1,000 ML 42 ML IV (08:43)
--- NOTE | 2025-05-31 09:00 | P.OP.EGD&C_ITS ---
Operative Date/Time/Diagnoses Date of procedure: 05/31/25 Time of procedure: 10:02 Pre-op diagnosis: GI bleeding Post-op diagnosis: other (gastritis, esophagitis, suspicious colon masses in cecum and sigmoid colons, diverticular stricture in sigmoid) Procedure & Clinicians Study performed: EGD/colonoscopy with biopsy, polypectomy Same procedure(s) as scheduled: Yes Indications: 84yo M presents through ED with bloody stool and anemia Surgeon: Pedro Grimm Anesthesia Type: MAC +/- Procedure Notes SCOAP/Timeout: Performed Procedure in detail: EGD Informed consent was obtained. The procedure, its risks, benefits, and alternatives were discussed. Patient understood and agreed to proceed. The patient was placed in the left lateral decubitus position with head elevated. Sedation given per anesthesia. The video endoscope was inserted into the oropharynx and guided under direct vision into the esophagus, stomach, and duodenum which were carefully examined. The scope was retroflexed to examine the hiatus and gastroesophageal junction. Antral biopsies were obtained for Helicobacter pylori. The patient tolerated the procedure very well. There were no apparent complications. Significant EGD findings: Z-line noted at: 36cm LA Grade A esophagitis, biopsies taken to r/o Mckeon's Mild antral gastritis No hiatal hernia No gastric or duodenal ulcer Duodenum normal No stricture, polyp or mass Above doubtful contribution to anemia Colonoscopy Patient placed in left lateral recumbent position. Time out was performed. Procedural sedation was administered by anesthesia. Examination began with a thorough inspection of the perianal area. There was no evidence of fissures, fistulae, external hemorrhoids or cutaneous malignancy. The colonoscope was then placed into the rectum and the lumen was insufflated with carbon dioxide. The scope was carefully advanced forward. Ultimately the cecum was intubated and confirmed by identification of the ileocecal valve, the appendiceal orifice and the confluence of the taenia. The scope was then slowly withdrawn examining the colon thoroughly in all directions. In the rectum, retroflexion of the scope was performed for inspection of the distal rectum and anal canal. ?Significant colonoscopy findings: ?1. Quality of the preparation-good, [place] 2-3, improved with irrigation/suction ?2. Suspicious mass #1, 2-3cm pedunculated, appears neoplastic just proximal to cecum, polyp removed with hot snare and retrieved with basket, too large for suction retrieval, adjacent area is a 3cm area of sessile adenomatous appearing mass, cold biopsies taken in this adjacent area 3. Suspicoius mass #2, near circumferential mass, appears neoplastic, at 40cm in descending colon near sigmoid, narrows lumen but scope passes easily, cold biopsies taken 4. Diverticulosis throughout colon, concentrated in sigmoid and ascending colons 5. Area of sigmoid narrow and difficult to traverse with scope, consistent with possible diverticular stricture 6. 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
--- NOTE | 2025-05-31 13:11 | CM.IDA ---
Initial DCP Assessment Patient is 84 y/o male presents to due to concern for Diverticular Hemorrhage. Recent admission from 05/25/25-05/28/25 due to concern for diverticulitis, septic shock and pneumonia. Patient discharged to [facility]. Patient's PCP is Dr. Angel, patient has Medicare and [facility] Insurance. Patient had Colonoscopy and EGD yesterday surgery yesterday, findings of suspicious masses and diverticulitis. SAGGER SOAK enters room to meet with patient, patient presents as A/Ox4, patient was watching tv while patient's spouse was on the phone. SAGGER SOAK was unable to have in depth conversation at this time. Patient endorses preference to return to [facility] upon d/c. Patient is reliant on staff to assist with ADLs at this time. SAGGER SOAK calls Alesha at [facility], it is reported that patient has been private pay resident at [facility] for quite a while and has hx of Hospice vs. Rehab stay there. SAGGER SOAK informs Alesha of patient's current admission at and undetermined length of stay at this time. [facility] to follow up with patient and family, as well as Alesha at [facility] regarding plan of care. Plan: DCP to f/u with POC, plan to return to [facility] upon medical clearance continued private pay vs. insurance coverage. NATALY Arora Discharge Planning/Care Management CM Discharge Assessment Start: 05/30/25 10:33 Freq: Status: Active Protocol: Document 05/31/25 12:46 LN (Rec: 05/31/25 13:01 LN [id number]) Discharge Planning Assessment Assigned Discharge NATALY Moise Extension Agent [facility],Medicare D[facility]A/Assigned Dietre Hughes/spouse Designee Name Contact Information [phone] Advance Directives? Yes: POLST Advance Directives Yes on File History Provided By Patient,Medical Record Has Patient been Yes admitted in last 30 days? Comment 05/25/25-05/28/25 for diverticulitis, pneumonia and septic shock Prior Living Skilled Nurse Facility Arrangements Household Members caregiver Type of Relies on Others transporation used prior to admit Facility Name [facility] Admitted From: Independent with ADL No 's Needs Assistance Bathing,Meal Prep,Toileting,Managing Medications,Home With Chores / Shopping Patient/Family Snf Facility Preference Discharge Plan Snf Facility Transportation Likely wheelchair van at [place] Arrangement Referrals Initiated Snf If patient plan is Yes home with home health: Has signed face to face form been completed?
[2025-05-31] MEDS: POTASSIUM CHLORIDE IN WATER 10 MEQ/100 ML PIGGYBACK 100 MEQ IV ×3 (15:20→18:43)
--- NOTE | 2025-05-31 18:49 | PC.NURSE ---
Assess- Patient back from egd and colonoscopy earlier, he tolerated one unit of blood and is now getting iv k riders. He tolerated them at 100cc/hr, but then fluid started to sting patients arm, they are now running at 60cc/hr. Patients appetite good. He is comfortable.
[2025-05-31] MEDS: TACROLIMUS 0.5 MG CAPSULE 1 MG PO (20:28)
[2025-05-31] MEDS: POTASSIUM CHLORIDE IN WATER 10 MEQ/100 ML PIGGYBACK 60 MEQ IV (20:29)
[2025-06-01 05:27] LABS: Add Manual Diff / Slide Review NO; Hematocrit 26.6 % (41-53); Hemoglobin 8.6 g/dL (13.5-17.5); Lymphocytes Absolute Auto 2000 /uL (1100-4500); Mean Corpuscular HGB Conc 32.4 % (30-36); Mean Corpuscular Hemoglobin 27.9 PG (26-34); Mean Corpuscular Volume 86.1 fL (80-100); Platelet Count 154 X10^3/uL (150-400)
[2025-06-01 05:42] LABS: Alanine Aminotransferase 20 IU/L (<50); Albumin 2.4 g/dL (3.5-5.0); Albumin Globulin Ratio 1.0 (1.0-2.8); Alkaline Phosphatase 57 U/L (38-126); Blood Urea Nitrogen 18 mg/dL (9-20); Calcium 7.6 mg/dL (8.4-10.2); Carbon Dioxide 24 mmol/L (22-32); Chloride 108 mmol/L (98-107); Estimated Glomerular Filt Rate 52 mL/min (>60); Globulin 2.4 g/dL (1.7-4.1); Glucose 90 mg/dL (70-99); HEMOLYSIS < 15 (0-50); Potassium 3.8 mmol/L (3.4-5.1); Sodium 137 mmol/L (137-145); Total Protein 4.8 g/dL (6.3-8.2)
[2025-06-01] MEDS: PANTOPRAZOLE DR 40 MG TABLET PO (06:04)
[2025-06-01] MEDS: LEVOTHYROXINE 75 MCG TABLET 150 MCG PO (06:04)
--- NOTE | 2025-06-01 07:23 | P.PN_ITS ---
Subjective Subjective Date Patient Seen: 06/01/25 Time Patient Seen: 07:23 Interval history: No clinical bleeding overnight Hgb 7.1 to 8.6 after 1u PRBC last night Exam Vital Signs (past 8 hours): Oxygen Delivery Method Room Air Oxygen Flow Rate 0 GI Palpation: soft (NTND) Objective Labs 06/01/25 05:04 06/01/25 05:04 Labs: Laboratory Results - last 24 hr 05/30/25 06/01/25 07:17 05:04 WBC 6.2 RBC 3.09 L Hgb 8.6 L Hct 26.6 L MCV 86.1 MCH 27.9 MCHC 32.4 RDW 18.0 H Plt Count 154 Neut % (Auto) 47.2 L Lymph % (Auto) 31.3 [place] % (Auto) 18.3 H Eos % (Auto) 2.5 Baso % (Auto) 0.7 Neut # (Auto) 2900 Lymph # (Auto) 2000 [place] # (Auto) 1100 H Eos # (Auto) 200 Baso # (Auto) 0 Sodium 137 Potassium 3.8 Chloride 108 H Carbon Dioxide 24 BUN 18 Creatinine 1.34 H Estimated GFR 52 L BUN/Creatinine Ratio 13.4 Glucose 90 Calcium 7.6 L Total Bilirubin 0.5 AST 29 ALT 20 Alkaline Phosphatase 57 Total Protein 4.8 L Albumin 2.4 L Globulin 2.4 Albumin/Globulin Ratio 1.0 Blood Type O Positive Antibody Screen Negative Crossmatch See Detail [facility] Medical History 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 COVID-19 Aortic stenosis Encounter for subsequent annual wellness visit (AWV) in Medicare patient Macrocytosis CKD (chronic kidney disease) stage 3, GFR 30-59 ml/min Chronic low back pain Hearing impaired IPF (idiopathic pulmonary fibrosis) Hypothyroid Diabetes Hyperlipidemia Hypertension Coronary artery disease Anemia Tubular adenoma of colon Surgical History Status post lung transplantation Hx of cholecystectomy Hx of bilateral cataract extraction H/O lung transplant (2009) Family History Father Patient denies significant medical history Mother Patient denies significant medical history Social History marital status: household members: caregiver alcohol intake: former Assessment & Plan Assessment and plan (1) Lower GI bleeding: Status: Acute Plan LGI bleed, stable Hgb appropriate increase after transfusion, suggests no active bleeding Await path on colon masses in cecum and descending OK for discharge from surgical perspective Time-Based Coding :: [TOTAL MINUTES] spent with patient and on the chart (including review of chart, obtaining history, exam, reviewing outside data, placing orders, documenting exam and treatment plan, and counseling patient) on [DATE]. PROFEE [employer] Document charge(s): Yes Charge Codes Subsequent inpatient/observation care: [id number]
--- NOTE | 2025-06-01 09:10 | P.DS_ITS ---
History of Present Illness History of Present Illness Date Patient Seen: 06/01/25 Chief complaint: blood in stool Narrative: Chief complaint: Colitis with bloody stools and abdominal cramping recurrent History of present illness: 05/25: [facility] He was noted to be hypotensive there. He is currently at [facility] is a long-term care patient. He was a remote history of lung transplant and chronic immunosuppression. He was feeling his normal self but was noted to be hypotensive. In the ED he was given 2 L of fluid a remained relatively hypotensive. He was given empiric antibiotics and blood cultures were obtained. There was concern on imaging for possible pneumonia versus diverticulitis. He denies a cough it is above and beyond his chronic baseline cough. He was had some abdominal pain but denies any diarrhea or change in appetite. He was DNR, this is reconfirmed in the ED and he declined any vasopressor agents. His was with him in the ED and then went home. Patient was treated for acute diverticulitis which de-escalated and was doing pretty well transferred to [facility]. At that institution despite continued oral antibiotic treatment developed increasing abdominal pain and bloody stool was brought back to the emergency room 05/30: Findings in the emergency department: Significant for white count of 7.2 hemoglobin 8.2 which is improved from the No site of active extravasation can be seen. Mild sigmoid diverticulitis, which is clearly improved compared to the recent prior CT. Approximately 50% narrowing can be seen involving the origins of the celiac axis and the SMA. There is a mild narrowing of the origin of the CLAY. Significant narrowing can be seen involving the origins of the main left renal artery and the accessory left renal artery, approximately 80%. There is mild left renal atrophy seen. Case was discussed with surgery by the ED department started the patient on a preparation for a colonoscopy for evaluation Hospital course: Patient was prepped and underwent upper and lower endoscopy findings below: Significant colonoscopy findings: 1. Quality of the preparation-good, Booker 2-3, improved with irrigation/suction 2. Suspicious mass #1, 2-3cm pedunculated, appears neoplastic just proximal to cecum, polyp removed with hot snare and retrieved with basket, too large for suction retrieval, adjacent area is a 3cm area of sessile adenomatous appearing mass, cold biopsies taken in this adjacent area 3. Suspicoius mass #2, near circumferential mass, appears neoplastic, at 40cm in descending colon near sigmoid, narrows lumen but scope passes easily, cold biopsies taken 4. Diverticulosis throughout colon, concentrated in sigmoid and ascending colons 5. Area of sigmoid narrow and difficult to traverse with scope, consistent with possible diverticular stricture 6. Masses likely source of GI bleeding/anemia, no active bleeding or stigmata of recent bleed at time of endoscopy Patient transfuse with 1 unit hemoglobin corrected to 8.6 potassium corrected to 3.8 calcium stable at 7.6 which corrects to reference range with an albumin of 2.4 Review of systems: No fever or chills No severe weakness No chest pain shortness for breath palpitations No urinary symptoms Physical exam: Elderly male no acute distress emotionally labile HEENT unremarkable Heart rate and rhythm regular no murmurs Lungs clear Abdomen is diffusely tender bowel sounds present Extremities no edema Neurologic nonfocal For objective laboratory and imaging see the bottom of the note Assessment and plan: Sigmoid diverticulitis and colitis continues to be symptomatic * Continue with Augmentin History of lung transplant on immunosuppressant without signs of complication * Continue immunosuppressant CKD 4 stable * Avoid nephrotoxic agents DVT prophylaxis: * SCDs only due to bleeding Code status: * Do not resuscitate Disposition: * Discharge to home * Follow up with Dr. Grimm for biopsy results in 2 weeks Time based billing: * 35 minutes were involved management this patient including [id number] evaluation discussion with patient and discussion with emergency provider review of objective laboratory and imaging data Discharge Providers Provider Date of admission: 05/30/25 09:46 Discharge Date: 06/01/25 Primary care physician: Shy Angel DO Consults: 05/30/25 14:12 Consult to Pharmacy Routine Comment: [facility] Discharge provider: Harsha Ospina MD Exam Vital Signs (past 8 hours): Oxygen Delivery Method Room Air Oxygen Flow Rate 0 Objective Labs 06/01/25 05:04 06/01/25 05:04 Labs: Laboratory Results - last 24 hr 05/30/25 06/01/25 07:17 05:04 WBC 6.2 RBC 3.09 L Hgb 8.6 L Hct 26.6 L MCV 86.1 MCH 27.9 MCHC 32.4 RDW 18.0 H Plt Count 154 Neut % (Auto) 47.2 L Lymph % (Auto) 31.3 [place] % (Auto) 18.3 H Eos % (Auto) 2.5 Baso % (Auto) 0.7 Neut # (Auto) 2900 Lymph # (Auto) 2000 [place] # (Auto) 1100 H Eos # (Auto) 200 Baso # (Auto) 0 Sodium 137 Potassium 3.8 Chloride 108 H Carbon Dioxide 24 BUN 18 Creatinine 1.34 H Estimated GFR 52 L BUN/Creatinine Ratio 13.4 Glucose 90 Calcium 7.6 L Total Bilirubin 0.5 AST 29 ALT 20 Alkaline Phosphatase 57 Total Protein 4.8 L Albumin 2.4 L Globulin 2.4 Albumin/Globulin Ratio 1.0 Blood Type O Positive Antibody Screen Negative Crossmatch See Detail [facility] Medical History 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 COVID-19 Aortic stenosis Encounter for subsequent annual wellness visit (AWV) in Medicare patient Macrocytosis CKD (chronic kidney disease) stage 3, GFR 30-59 ml/min Chronic low back pain Hearing impaired IPF (idiopathic pulmonary fibrosis) Hypothyroid Diabetes Hyperlipidemia Hypertension Coronary artery disease Anemia Tubular adenoma of colon Surgical History Status post lung transplantation Hx of cholecystectomy Hx of bilateral cataract extraction H/O lung transplant (2009) Family History Father Patient denies significant medical history Mother Patient denies significant medical history Social History marital status: household members: caregiver alcohol intake: former Discharge Plan Discharge Plan Patient Disposition: SNF I cert[facility] care is medically necessary on a continuing basis for any conditions for which he/ she received care during this hospitalization.: Yes The receiving facility has agreed to accept transfer and provide medical treatment.: Yes Discharge orders & Medications Prescriptions: Continued levothyroxine 150 mcg tablet 150 mcg PO DAILY Qty: 90 3RF valganciclovir 450 mg tablet 450 mg PO 3XW Rx Instructions: Patient reports he takes this med 3 X weekly on , Sun, and . prednisone 5 mg tablet 5 mg PO DAILY tamsulosin 0.4 mg capsule 0.4 mg PO QPM itraconazole 100 mg capsule 100 mg PO BID tacrolimus 1 mg capsule 1 mg PO Q12H azithromycin 250 mg tablet 500 mg PO 3XW Qty: 12 0RF Rx Instructions: Pts instructions say to take 1 tablet by mouth Sunday,,Sunday amoxicillin-pot clavulanate [Augmentin] 500-125 mg tablet 1 tab PO TID Qty: 20 0RF Follow up/Referrals: Shy Angel DO [Primary Care Provider, Family Practice] Visit Report/Discharge Packet Stand Alone Forms: Patient Portal/API, Stroke Signs & Symptoms Discharge Data Primary Care Provider: Shy Angel Attending Provider: Harsha Ospina Admit Date/Time: 05/30/25 09:46
[2025-06-01 09:25] VITALS: BP 135/78; PULSE 84; RESP 17; TEMP 36; O2SAT 96
[2025-06-01] MEDS: AZITHROMYCIN 250 MG TABLET 500 MG PO (10:10)
[2025-06-01] MEDS: TACROLIMUS 0.5 MG CAPSULE 1 MG PO (10:10)
--- NOTE | 2025-06-01 11:12 | PC.NURSE ---
Patient discharged back to [facility]. Iv taken out and just left with ride. Report called.
--- NOTE | 2025-06-01 12:15 | CM.DPNOTE ---
DCP note BARRATTE OPERATOR reviewed EMR per provider cleared to return to [facility] today. BARRATTE OPERATOR updated pt and spouse in room. in agreement with plan. BARRATTE OPERATOR gave RN report number. updated PAPER RECLAIMING MACHINE OPERATOR. per angel can pick pt up at 11am today. BARRATTE OPERATOR placed signed med list in dc packet. no PASRR needed P: dc to [facility] today at 11am. No further CM needs at this time will continue to follow as needed DENIZ Vásquez
== END 2025-06-01 11:13 ==
LOC: ED 09:38 → AC 11:24
PROVIDERS: Surgery; Admitting Provider Internal Medicine; Emergency Provider Family Medicine; Family Provider Family Medicine; PCP Family Medicine; Referring Provider Family Medicine; Visit Provider Internal Medicine
PROC: 0DJ08ZZ Inspection of Upper Intestinal Tract, Via Natural or Artificial Opening Endoscopic (ICD-10-PCS; CPT 45385; principal; 2025-05-31 09:00)
PROC: 0DJD8ZZ Inspection of Lower Intestinal Tract, Via Natural or Artificial Opening Endoscopic (ICD-10-PCS; CPT 45378; 2025-05-31 09:00)
DX: I95.9 Hypotension, unspecified (principal); K57.32 Diverticulitis of large intestine without perforation or abscess without bleeding; I12.9 Hypertensive chronic kidney disease with stage 1 through stage 4 chronic kidney disease, or unspecified chronic kidney disease; N18.4 Chronic kidney disease, stage 4 (severe); E03.9 Hypothyroidism, unspecified; E78.5 Hyperlipidemia, unspecified; I25.10 Atherosclerotic heart disease of native coronary artery without angina pectoris; D64.9 Anemia, unspecified; K29.70 Gastritis, unspecified, without bleeding; K20.90 Esophagitis, unspecified without bleeding; K57.30 Diverticulosis of large intestine without perforation or abscess without bleeding; K56.699 Other intestinal obstruction unspecified as to partial versus complete obstruction; Z94.2 Lung transplant status; Z66 Do not resuscitate
CPT/HCPCS: 45385; 45380; 43239; 36415; 36430; 74174; 80053; 81003; 82272; 82962; 85025; 85610; 85730; 86850; 86900; 86901; 96361; 96365; 96366; 96367; 96368; 99284; G0378; P9016; J0744; J2704; J7050; J7507; Q9967

== ENCOUNTER → 2025-06-02 10:52 | Outpatient (CLI) | payer MEDICARE, SELFPAY ==
[2025-05-30 14:07] VITALS: BMI 28.1
[2025-06-02 15:25] VITALS: BP 114/54; PULSE 89; RESP 18; TEMP 36.6; O2SAT 94
[2025-06-02] MEDS: EPOETIN ALFA-EPBX 20,000 UNIT/ML VIAL 20000 UNIT SUBCUT (16:12)
[2025-06-05] MEDS: EPOETIN ALFA-EPBX 20,000 UNIT/ML VIAL 20000 UNIT SUBCUT (11:46)
== END ==
PROVIDERS: Family Provider Family Medicine; PCP Family Medicine; Referring Provider Internal Medicine Nephrology; Visit Provider Internal Medicine Nephrology
DX: N18.32 Chronic kidney disease, stage 3b (principal); D63.1 Anemia in chronic kidney disease
CPT/HCPCS: 96372; Q5106

== ENCOUNTER → 2025-06-05 11:00 | Outpatient (CLI) | payer MEDICARE, SELFPAY ==
[2025-05-30 14:07] VITALS: BMI 28.1
== END ==
PROVIDERS: Family Provider Family Medicine; PCP Family Medicine; Referring Provider Internal Medicine Nephrology; Visit Provider Internal Medicine Nephrology
DX: N18.32 Chronic kidney disease, stage 3b (principal); D63.1 Anemia in chronic kidney disease
CPT/HCPCS: 96372; Q5106

== ENCOUNTER → 2025-06-08 09:21 | Outpatient (CLI) | payer MEDICARE, SELFPAY ==
[2025-05-30 14:07] VITALS: BMI 28.1
[2025-06-08 09:22] VITALS: BP 121/60; PULSE 83; RESP 14; TEMP 36.1; O2SAT 99
[2025-06-08] MEDS: EPOETIN ALFA-EPBX 20,000 UNIT/ML VIAL 20000 UNIT SUBCUT (10:04)
== END ==
LOC: ONC 09:21
PROVIDERS: Family Provider Family Medicine; PCP Family Medicine; Referring Provider Internal Medicine Nephrology; Visit Provider Internal Medicine Nephrology
DX: N18.32 Chronic kidney disease, stage 3b (principal); D63.1 Anemia in chronic kidney disease
CPT/HCPCS: 96372; Q5106

== ENCOUNTER → 2025-06-11 09:03 | Outpatient (CLI) | payer MEDICARE, SELFPAY ==
[2025-05-30 14:07] VITALS: BMI 28.1
[2025-06-11] MEDS: EPOETIN ALFA-EPBX 20,000 UNIT/2 ML VIAL 20000 UNIT SUBCUT (09:42)
[2025-06-11 09:44] VITALS: BP 109/55; PULSE 89; RESP 18; TEMP 36.6; O2SAT 100
== END ==
LOC: ONC 09:03
PROVIDERS: Family Provider Family Medicine; PCP Family Medicine; Referring Provider Internal Medicine Nephrology; Visit Provider Internal Medicine Nephrology
DX: N18.30 Chronic kidney disease, stage 3 unspecified (principal); D63.1 Anemia in chronic kidney disease
CPT/HCPCS: 96372; Q5106

== ENCOUNTER → 2025-06-15 09:16 | Outpatient (CLI) | payer MEDICARE, SELFPAY ==
[2025-05-30 14:07] VITALS: BMI 28.1
[2025-06-15 09:35] VITALS: BP 114/60; PULSE 81; RESP 18; TEMP 36.3; O2SAT 100
[2025-06-15] MEDS: EPOETIN ALFA-EPBX 20,000 UNIT/2 ML VIAL 20000 UNIT SUBCUT (10:47)
--- NOTE | 2025-06-15 12:25 | INF.NOTE ---
Lab called to notify we need to repeat H & H due to some sample errors on lab sample sent. Results previously had Hgb 9.3. Orders placed to repeat the lab on 06/18/25 because patient has returned to [facility] with EPO shot given this am. Previous result of 9.3 released prior to error with sample that required some further repeat testing.
== END ==
LOC: ONC 09:16
PROVIDERS: Family Provider Family Medicine; PCP Family Medicine; Referring Provider Internal Medicine Nephrology; Visit Provider Internal Medicine Nephrology
DX: N18.32 Chronic kidney disease, stage 3b (principal); D63.1 Anemia in chronic kidney disease
CPT/HCPCS: 85014; 85018; 96372; Q5106

== ENCOUNTER → 2025-06-18 09:11 | Outpatient (CLI) | payer MEDICARE, SELFPAY ==
[2025-05-30 14:07] VITALS: BMI 28.1
[2025-06-18 10:21] LABS: Hematocrit 28.9 % (41-53); Hemoglobin 9.2 g/dL (13.5-17.5)
[2025-06-18 10:26] VITALS: BP 118/59; PULSE 78; RESP 16; TEMP 36.5; O2SAT 98
[2025-06-18] MEDS: EPOETIN ALFA-EPBX 20,000 UNIT/ML VIAL 20000 UNIT SUBCUT (11:01)
== END ==
LOC: ONC 09:11
PROVIDERS: Family Provider Family Medicine; PCP Family Medicine; Referring Provider Internal Medicine Nephrology; Visit Provider Internal Medicine Nephrology
DX: N18.32 Chronic kidney disease, stage 3b (principal); D63.1 Anemia in chronic kidney disease
CPT/HCPCS: 85014; 85018; 96372; Q5106

== ENCOUNTER → 2025-06-22 09:19 | Outpatient (CLI) | payer MEDICARE, SELFPAY ==
[2025-05-30 14:07] VITALS: BMI 28.1
[2025-06-22 09:30] VITALS: BP 97/45; PULSE 78; RESP 18; TEMP 36.6; O2SAT 100
[2025-06-22 09:48] VITALS: BP 112/57
[2025-06-22] MEDS: EPOETIN ALFA-EPBX 20,000 UNIT/ML VIAL 20000 UNIT SUBCUT (09:50)
== END ==
LOC: ONC 09:19
PROVIDERS: Family Provider Family Medicine; PCP Family Medicine; Referring Provider Internal Medicine Nephrology; Visit Provider Internal Medicine Nephrology
DX: N18.32 Chronic kidney disease, stage 3b (principal); D63.1 Anemia in chronic kidney disease
CPT/HCPCS: 96372; Q5106

== ENCOUNTER → 2025-06-25 | Outpatient (CLI) | payer MEDICARE, SELFPAY ==
[2025-05-30 14:07] VITALS: BMI 28.1
[2025-06-25 09:25] VITALS: BP 123/60; PULSE 73; RESP 16; TEMP 36.4; O2SAT 100
[2025-06-25] MEDS: EPOETIN ALFA-EPBX 20,000 UNIT/2 ML VIAL 20000 UNIT SUBCUT (09:55)
== END ==
LOC: ONC 09:15
PROVIDERS: Family Provider Family Medicine; PCP Family Medicine; Referring Provider Internal Medicine Nephrology; Visit Provider Internal Medicine Nephrology
DX: N18.32 Chronic kidney disease, stage 3b (principal); D63.1 Anemia in chronic kidney disease
CPT/HCPCS: 96372; Q5106

== ENCOUNTER → 2025-06-29 09:05 | Outpatient (CLI) | payer MEDICARE, SELFPAY ==
[2025-05-30 14:07] VITALS: BMI 28.1
[2025-06-29 09:10] VITALS: BP 127/63; PULSE 83; RESP 16; TEMP 36.3; O2SAT 100
[2025-06-29 09:54] LABS: Hematocrit 30.7 % (41-53); Hemoglobin 9.6 g/dL (13.5-17.5)
[2025-06-29 10:06] LABS: Blood Urea Nitrogen 60 mg/dL (9-20); Carbon Dioxide 22 mmol/L (22-32); Chloride 105 mmol/L (98-107); Estimated Glomerular Filt Rate 39 mL/min (>60); Sodium 134 mmol/L (137-145)
[2025-06-29 10:08] LABS: Calcium 8.6 mg/dL (8.4-10.2); Glucose 116 mg/dL (70-99); Potassium 4.6 mmol/L (3.4-5.1)
[2025-06-29 10:09] LABS: HEMOLYSIS 93 (0-50)
[2025-06-29] MEDS: EPOETIN ALFA-EPBX 20,000 UNIT/2 ML VIAL 20000 UNIT SUBCUT (10:19)
[2025-06-29 10:28] VITALS: BP 125/63; PULSE 84; RESP 16; TEMP 36.6; O2SAT 100
== END ==
LOC: ONC 09:05
PROVIDERS: Family Provider Family Medicine; PCP Family Medicine; Referring Provider Internal Medicine Nephrology; Visit Provider Internal Medicine Nephrology
DX: N18.32 Chronic kidney disease, stage 3b (principal); D63.1 Anemia in chronic kidney disease
CPT/HCPCS: 36415; 80048; 85014; 85018; 96372; Q5106

== ENCOUNTER → 2025-07-02 09:06 | Outpatient (CLI) | payer MEDICARE, OTHER, SELFPAY ==
[2025-05-30 14:07] VITALS: BMI 28.1
[2025-07-02 09:54] VITALS: BP 132/76; PULSE 89; RESP 16; TEMP 36.7; O2SAT 99
[2025-07-02] MEDS: EPOETIN ALFA-EPBX 20,000 UNIT/2 ML VIAL 20000 UNIT SUBCUT (10:00)
--- NOTE | 2025-07-02 10:27 | INF.NOTE ---
patient informed this rn he has had heartburn/indigestion for last 4 days, asked about anything to help. Explained I have gingerale but cannot offer a medication for the heartburn without a providers order. Called and notified his pcp dr Angel office ph # [phone] message sent to provider by back office staff regarding his complaint. Called and left message for his nurse at [facility] as well. [phone] option # 1 then option # 6. Patient appreciative and understands messages left with both about the symptoms he described and providers office will reach out to him to further discuss and if medication/orders needed will facilitate that with [facility].
== END ==
PROVIDERS: Family Provider Family Medicine; PCP Family Medicine; Referring Provider Internal Medicine Nephrology; Visit Provider Internal Medicine Nephrology
DX: N18.32 Chronic kidney disease, stage 3b (principal); D63.1 Anemia in chronic kidney disease
CPT/HCPCS: 96372; Q5106

== ENCOUNTER 2025-07-03 23:43 | Emergency (ER) | payer MEDICARE, SELFPAY ==
[2025-05-30 14:07] VITALS: BMI 28.1
--- NOTE | 2025-07-03 23:52 | DI.CT.S_ITS ---
PROCEDURE: CT ANGIO ABDOMEN PELVIS INDICATIONS: abd pain, positive lower GI bleed TECHNIQUE: After the administration of intravenous contrast, 2.5 mm thick sections acquired from the diaphragm to the symphysis. 10 mm maximum-intensity projection (MIP) reformats were then acquired. For radiation dose reduction, the following was used: automated exposure control. COMPARISON: [facility], CT, CT ANGIO ABDOMEN PELVIS, 09/11/2024, 2:42. FINDINGS: Image Quality: Diagnostic. Abdominal aorta: No aortic aneurysm or evidence of acute aortic syndrome. Mesenteric arteries: No severe stenosis or occlusion. 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 Solitary right renal artery with less than 50% stenosis. OTHER: Lower Chest: Cardiomegaly. Mitral annular calcification. Severe coronary calcification. CABG. Aortic valve calcifications. Liver: No solid mass. Gallbladder: Cholecystectomy. Biliary ducts: Mild intrahepatic biliary duct dilation. Pancreas: No ductal dilation. Spleen: Size is within normal limits. Adrenal Glands: No adrenal nodules. Kidneys and Ureters: No hydronephrosis. No solid mass. No complex renal cystic lesion which requires follow up. Bilateral renal cortical atrophy. Stomach and Bowel: Sigmoid colon wall thickening similar to prior examination. Diverticulosis. Rectal stool ball 7 cm in diameter. No abnormally dilated loops of bowel. Peritoneum: No abnormal intraperitoneal fluid. No free air. Ventral Wall: No hernia. Abdominal Nodes: No retroperitoneal or mesenteric adenopathy by size criteria. Vessels: Aorta and inferior vena cava are normal in size. PELVIS: Pelvic Organs: Unremarkable. Bladder: Unremarkable. Pelvic Nodes: No enlarged lymph nodes. Miscellaneous: No inguinal hernias are seen. Bones: No aggressive osseous abnormality. L1 height loss, unchanged. Posterior spinal fusion with instrumentation and interbody spacers at L2-L4, unchanged. IMPRESSION: Severe atherosclerosis with no evidence of active hemorrhage or acute occlusion. Sigmoid colon wall thickening which may represent acute or chronic colitis. Possible fecal impaction. Dictated by: Suraj Mg M.D. on 07/04/2025 at 1:52 Approved by: Suraj Mg M.D. on 07/04/2025 at 2:01
--- NOTE | 2025-07-03 23:55 | ED.GIBLEED ---
HPI - GI Bleed General Chief complaint: GI Bleed Stated complaint: Rectal Bleeding Time Seen by Provider: 07/03/25 23:43 History of Present Illness HPI Narrative: Patient is a 84-year-old male with a past medical history of prior lung transplant with fibrosis, hypothyroidism, CKD stage 4, hypertension, hyperlipidemia, CAD, prior GI bleed, end-stage colon cancer, comes into the ED from facility for evaluation of lower GI bleed, patient states that he noticed some bloody stools and was having some abdominal pain started earlier today. He denies any trauma or falls not on any blood thinners, he is currently on hospice but states that he does want a full workup here. Related Data Home Medications ?Medication ?Instructions ?Recorded ?Confirmed itraconazole 100 mg capsule 100 mg PO BID 08/28/24 07/02/25 prednisone 5 mg tablet 5 mg PO DAILY 08/28/24 07/02/25 tacrolimus 1 mg capsule, 1 mg PO Q12H 08/28/24 07/02/25 immediate-release valganciclovir 450 mg tablet 450 mg PO 3XW 08/28/24 07/02/25 sulfamethoxazole 800 0.5 tab PO 3XW 06/11/25 07/02/25 mg-trimethoprim 160 mg tablet tamsulosin 0.4 mg capsule 0.4 mg PO DAILY 06/22/25 07/02/25 Previous Rx's ?Medication ?Instructions ?Recorded levothyroxine 150 mcg tablet 150 mcg PO DAILY #90 tabs 09/04/24 azithromycin 250 mg tablet 500 mg (2 x 250 mg) PO 3XW #12 tabs 05/28/25 docusate calcium 240 mg capsule 240 mg PO DAILY PRN constipation 1 07/04/25 week #7 caps Allergies Allergy/AdvReac Type Severity Reaction Status Date / Time tamsulosin (From Flomax) AdvReac Intermediate hypotension Verified 06/25/25 09:26 Review of Systems Review of Systems Narrative: General: Denies fever, chills, weight loss HEENT: Denies headache, eye drainage, eye irritation, head trauma, sore throat, voice change Cardiovascular: Denies any chest pain, palpitations, tachycardia Respiratory: Denies any shortness of breath, cough, wheeze, stridor GI/: Positive abdominal pain, bright red blood per rectum denies nausea, vomiting, diarrhea, urinary frequency, urinary retention, dysuria, hematuria MSK: Denies any joint pain, muscle pains, swelling Skin: Denies any rashes, lesions, discoloration Neuro: Denies any headache, lightheadedness, dizziness, fainting, weakness Psych: Denies SI/HI Patient History Medical History (Updated 07/04/25 @ 02:20 by Alli Roberto DO) Adenocarcinoma, colon 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 COVID-19 Aortic stenosis Encounter for subsequent annual wellness visit (AWV) in Medicare patient Macrocytosis CKD (chronic kidney disease) stage 3, GFR 30-59 ml/min Chronic low back pain Hearing impaired IPF (idiopathic pulmonary fibrosis) Hypothyroid Diabetes Hyperlipidemia Hypertension Coronary artery disease Anemia Tubular adenoma of colon Surgical History Status post lung transplantation Hx of cholecystectomy Hx of bilateral cataract extraction H/O lung transplant (2009) Family History Father Patient denies significant medical history Mother Patient denies significant medical history Social History marital status: household members: caregiver alcohol intake: former alcohol intake frequency: holidays/special occasions only Exam Narrative Exam Narrative: General: Cooperative, well-developed, not in acute distress HEENT: Normocephalic, atraumatic, PERRLA, normal sclera, eyelids normal Neck: Active full range of motion, atraumatic Chest: Normal to inspection, negative crepitus, no overlying erythema ecchymosis Respiratory: Normal respiratory effort, not in acute respiratory distress, clear to auscultation bilaterally negative cough, wheeze, tachypnea, rhonchi, rales Cardiology: Regular rate rhythm negative gallop, murmur, rubs GI/: No tenderness to palpation, soft, non rigid, normal to inspection, Hemoccult positive, brown stool MSK: Full active range of motion in all 4 extremities, atraumatic, no tenderness to palpation of any bony prominences Skin: No rashes or lesions noted Neuro: Alert awake oriented x3, moves all 4 extremities spontaneously, cranial nerves intact, able to answer all questions appropriately follows commands appropriately Psych: Cooperative, negative suicidal or homicidal ideations Initial Vital Signs Initial Vital Signs: Vital Signs Pulse Rate 98 H 07/04/25 00:02 Respiratory Rate 20 07/04/25 00:02 Pulse Oximetry 99 07/04/25 00:02 Course Orders Ordered: ED Orders 07/03/25 23:52 CT angio abdomen pelvis Stat Complete Blood Count AUTO DIFF Stat Comprehensive Metabolic Panel Stat Lipase Stat 07/03/25 23:53 Lactate (Lactic Acid) Stat PT [Prothrombin Time INR] Stat PTT Partial Thromboplastin Kevin Stat 07/03/25 23:54 Type and Screen Stat Urinalysis and Microscopic Stat EKG-12 Lead Stat 07/03/25 23:59 Magnesium Stat Troponin & CK Cardiac Panel Stat Discontinued Medications Sodium Chloride (Normal Saline 0.9%) 1,000 mls @ 1,000 mls/hr IV BOLUS ONE Stop: 07/04/25 00:52 Last Infusion: 07/04/25 01:24 Dose: Infused Morphine Sulfate (Morphine 4 Mg/Ml Inj) 4 mg IV NOW ONE Stop: 07/03/25 23:54 Last Admin: 07/04/25 00:19 Dose: 4 mg Ondansetron HCl (Ondansetron 4 Mg/2 Ml Inj) 4 mg IV NOW ONE Stop: 07/03/25 23:54 Last Admin: 07/04/25 00:19 Dose: 4 mg Vital Signs Vital signs: Vital Signs - 8 hr 07/04/25 00:02 07/04/25 00:06 07/04/25 00:30 Pulse Rate 98 H 97 H Respiratory Rate 20 20 Blood Pressure 148/75 H 120/72 Pulse Oximetry 99 94 Oxygen Delivery Method Room Air 07/04/25 00:30 07/04/25 01:00 07/04/25 01:00 Pulse Rate 93 H 98 H Respiratory Rate 14 16 Blood Pressure 161/85 H Pulse Oximetry 97 97 Oxygen Delivery Method MDM - GI Bleed Lab Data 07/03/25 23:59 07/03/25 23:59 Labs: Lab Results 07/03/25 07/04/25 07/04/25 Range/Units 23:59 00:55 01:00 WBC 8.1 (4.5-11.0) X10^3/uL RBC 3.81 L (4.5-5.9) X10^6/uL Hgb 10.5 L (13.5-17.5) g/dL Hct 33.5 L (41-53) % MCV 88.1 (80-100) fL MCH 27.5 (26-34) PG MCHC 31.3 (30-36) % RDW 19.2 H (11.6-14.8) % Plt Count 148 L (150-400) X10^3/uL Neut % (Auto) 58.4 (50-75) % Lymph % (Auto) 25.6 (25-40) % [place] % (Auto) 15.7 H (3-14) % Eos % (Auto) 0.1 L (2-4) % Baso % (Auto) 0.2 (0-2) % Neut # (Auto) 4700 (0282-4322) /uL Lymph # (Auto) 2100 (0527-5712) /uL [place] # (Auto) 1300 H (0-900) /uL Eos # (Auto) 0 (0-450) /uL Baso # (Auto) 0 (0-100) /uL PT 10.8 (9.4-12.5) SECONDS INR 1.0 (0.9-1.3) APTT 26 (25.1-36.5) SECONDS Sodium 132 L (137-145) mmol/L Potassium 5.3 H (3.4-5.1) mmol/L Chloride 101 (98-107) mmol/L Carbon Dioxide 25 (22-32) mmol/L BUN 60 H (9-20) mg/dL Creatinine 1.69 H (0.66-1.25) mg/dL Estimated GFR 39 L (>60) mL/min BUN/Creatinine Ratio 35.5 H (6-22) Glucose 126 H (70-99) mg/dL Lactate 0.9 (0.7-2.1) mmol/L Calcium 9.0 (8.4-10.2) mg/dL Magnesium 1.8 (1.6-2.3) mg/dL Total Bilirubin 0.3 (0.2-1.3) mg/dL AST 26 (17-59) IU/L ALT 15 (<50) IU/L Alkaline Phosphatase 82 (38-126) U/L Total Creatine Kinase 39 L (55-170) U/L Troponin I 0.046 H (0.01-0.034) ng/mL Total Protein 6.5 (6.3-8.2) g/dL Albumin 3.4 L (3.5-5.0) g/dL Globulin 3.1 (1.7-4.1) g/dL Albumin/Globulin Ratio 1.1 (1.0-2.8) Lipase 44 (23-300) U/L Urine Color Yellow Urine Appearance Clear Urine pH 6.0 (4.5-8.0) Ur Specific [place] 1.020 (1.000-1.035) Urine Protein Negative (Negative) Urine Glucose (UA) Negative (Negative) g/dL Urine Ketones Negative (NEGATIVE) Urine Occult Blood Negative (Negative) Urine Nitrate Negative (Negative) Urine Bilirubin Negative (NEGATIVE) Urine Urobilinogen 0.2 (0.2) E.U./dL Ur Leukocyte Esterase Negative (NEGATIVE) Urine RBC None seen (0-5/HPF) Urine WBC None seen (0-5/HPF) Ur Squamous Epith Cells 0-1 /hpf (0-5/HPF) Urine Bacteria None seen (None) Ur Culture Indicated? Cult not indicated Vol Urine Centrifuged 10ml (spun) Blood Type O Positive Antibody Screen Negative Urine Dip Bedside Urine Glucose Negative Bedside Urine Bilirubin - Negative Bedside Urine Ketone - Negative Urine Specific [place] 1.015 Bedside Urine Occult Blood - Negative Bedside Urine pH 6.0 Bedside Urine Protein - Negative Bedside Urine Urobilinogen - Negative Bedside Urine Nitrite - Negative Bedside Urine Leukocytes - Negative Esterase ECG Data Interpretation: EKG interpreted ED physician sinus 99 beats per minute QTC 500 left axis deviation nonspecific ST change no STEMI MDM Narrative Medical decision making narrative: 84-year-old male currently on hospice for stage IV colon cancer, history of lung transplant on tacrolimus, hypothyroidism, CKD stage 4, hypertension, hyperlipidemia, CAD, comes into the ED via EMS from facility for abdominal cramping pain and bright red blood per rectum. On exam patient Hemoccult positive, brown stool noted nonmelanotic, EKG nonischemic in nature. Patient did have CT angio abdomen and pelvis performed here, no active hemorrhage or acute occlusion, sigmoid colon with thickening consistent with acute/chronic colitis did note some possible fecal impaction but otherwise nonacute. Patient will be discharged home with laxative to help with possible fecal impaction. Patient without any leukocytosis on lab work, Chem panel at baseline, hemoglobin 10.5 which is improved from 9.6 on 06/29/2025, patient will be discharged back to facility on hospice. He was given strict return precautions he verbalized understanding and agrees to being discharged home with outpatient follow up Discharge Plan Departure Patient Disposition: Home Clinical Impression: Colitis Instructions: DI for Colitis Activity Restrictions/Additional Instructions: Please follow up with your care team/hospice team Please read the discharge instructions sheet carefully and bring all papers to all doctor follow-up visits, as it may contain information that your doctor may want to see. Disease processes change and evolve, if your symptoms worsen or if you develop any new symptoms that are concerning to you please return for evaluation. Your evaluation today does not show any evidence of any life-threatening/serious illnesses requiring admission to the hospital or surgery. Please follow-up with your doctor for re-evaluation in approximately 1 day. Seek immediate medical attention for any worrisome symptoms. *If you do not have a primary care provider please contact the [facility] Resource line at [phone]. They will ask some questions about your medical history and help get you set up with a doctor in the community. Prescriptions: New docusate calcium 240 mg capsule 240 mg PO DAILY PRN (Reason: constipation) 7 Days Qty: 7 0RF No Action levothyroxine 150 mcg tablet 150 mcg PO DAILY Qty: 90 3RF tamsulosin 0.4 mg capsule 0.4 mg PO DAILY valganciclovir 450 mg tablet 450 mg PO 3XW Rx Instructions: Patient reports he takes this med 3 X weekly on , Sun, and . prednisone 5 mg tablet 5 mg PO DAILY itraconazole 100 mg capsule 100 mg PO BID tacrolimus 1 mg capsule 1 mg PO Q12H sulfamethoxazole-trimethoprim 800-160 mg tablet 0.5 tab PO 3XW Rx Instructions: Every Sunday, Sunday, and Sunday azithromycin 250 mg tablet 500 mg PO 3XW Qty: 12 0RF Rx Instructions: Pts instructions say to take 1 tablet by mouth Sunday,,Sunday Referrals: Shy Angel DO [Primary Care Provider, Family Practice] Stand Alone Forms: Patient Portal/API
--- NOTE | 2025-07-03 23:56 | EKG_ITS ---
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
[2025-07-04] VITALS (13 sets, daily range): BP systolic 96–161; BP diastolic 52–85; PULSE 80–106; RESP 14–36; TEMP 37.2; O2SAT 94–99; BMI 24.3
[2025-07-04] MEDS: SODIUM CHLORIDE 0.9% 1,000 ML 1000 ML IV (00:18)
[2025-07-04] MEDS: MORPHINE 4 MG/ML INJ IV (00:19)
[2025-07-04] MEDS: ONDANSETRON 4 MG/2 ML INJ IV (00:19)
[2025-07-04 00:20] LABS: Add Manual Diff / Slide Review NO; Hematocrit 33.5 % (41-53); Hemoglobin 10.5 g/dL (13.5-17.5); Lymphocytes Absolute Auto 2100 /uL (1100-4500); Mean Corpuscular HGB Conc 31.3 % (30-36); Mean Corpuscular Hemoglobin 27.5 PG (26-34); Mean Corpuscular Volume 88.1 fL (80-100); Platelet Count 148 X10^3/uL (150-400)
[2025-07-04 00:33] LABS: INR 1.0 (0.9-1.3); Prothrombin Time 10.8 SECONDS (9.4-12.5)
[2025-07-04 00:35] LABS: PTT Partial Thromboplastin Tim 26 SECONDS (25.1-36.5)
[2025-07-04 00:37] LABS: Lactate (Lactic Acid) 0.9 mmol/L (0.7-2.1)
[2025-07-04 00:38] LABS: Alanine Aminotransferase 15 IU/L (<50); Albumin 3.4 g/dL (3.5-5.0); Albumin Globulin Ratio 1.1 (1.0-2.8); Alkaline Phosphatase 82 U/L (38-126); Blood Urea Nitrogen 60 mg/dL (9-20); Calcium 9.0 mg/dL (8.4-10.2); Carbon Dioxide 25 mmol/L (22-32); Chloride 101 mmol/L (98-107); Creatine Kinase 39 U/L (55-170); Estimated Glomerular Filt Rate 39 mL/min (>60); Globulin 3.1 g/dL (1.7-4.1); Glucose 126 mg/dL (70-99); HEMOLYSIS < 15 (0-50); Lipase 44 U/L (23-300); Magnesium 1.8 mg/dL (1.6-2.3); Potassium 5.3 mmol/L (3.4-5.1); Sodium 132 mmol/L (137-145); Total Protein 6.5 g/dL (6.3-8.2)
[2025-07-04 00:49] LABS: Troponin I 0.046 ng/mL (0.01-0.034)
[2025-07-04 01:14] LABS: Appearance Urine UA CLEAR; Bilirubin Urine UA NEGATIVE (NEGATIVE); Color Urine UA YELLOW; Glucose Urine UA NEGATIVE (Negative); Ketones Urine UA NEGATIVE (NEGATIVE); Leukocyte Esterase Urine UA NEGATIVE (NEGATIVE); Nitrite Urine UA NEGATIVE (Negative); Occult Blood Urine UA NEGATIVE (Negative); Protein Urine UA NEGATIVE (Negative); Specific Gravity Urine UA 1.020 (1.000-1.035); Urobilinogen Urine UA 0.2 E.U./dL (0.2); pH Urine UA 6.0 (4.5-8.0)
[2025-07-04 01:31] LABS: Culture Indicated Urine Cult Not Indicated
--- NOTE | 2025-07-04 02:55 | PC.NURSE ---
Called [facility] at [phone] spoke to Duarte. At this time they do not have transport available, they will call us if day shift is able to pick him up. Spoke to patient and his does not drive in the dark, but if [facility] is not able to she can pick him up when it is light out. She is close in [place].
--- NOTE | 2025-07-04 04:41 | PC.NURSE ---
No changes in patient status since provider discharge him. Patient is currently resting awaiting transportation back to [facility].
== END 2025-07-04 07:02 | disposition home or self-care (01) ==
PROVIDERS: Emergency Provider Student in an Organized Health Care Education/Training Program; Family Provider Family Medicine; PCP Family Medicine
DX: K52.9 Noninfective gastroenteritis and colitis, unspecified (principal); C18.9 Malignant neoplasm of colon, unspecified; R10.9 Unspecified abdominal pain; Z86.79 Personal history of other diseases of the circulatory system; N18.4 Chronic kidney disease, stage 4 (severe)
CPT/HCPCS: 36415; 74174; 80053; 81001; 81003; 82550; 83605; 83690; 83735; 84484; 85025; 85610; 85730; 86850; 86900; 86901; 93005; 96361; 96374; 96375; 99284; J2272; J2405; J7030; Q9967

== ENCOUNTER → 2025-07-06 09:09 | Outpatient (CLI) | payer MEDICARE, SELFPAY ==
[2025-05-30 14:07] VITALS: BMI 28.1
== END ==
LOC: ONC 09:09
PROVIDERS: Family Provider Family Medicine; PCP Family Medicine; Referring Provider Internal Medicine Nephrology; Visit Provider Internal Medicine Nephrology
DX: N18.32 Chronic kidney disease, stage 3b (principal); D63.1 Anemia in chronic kidney disease